=== PATIENT | male | born 1945 | race Caucasian/White ===

== ENCOUNTER → 2018-02-05 08:41 | Outpatient (CLI) | payer MEDICARE, SELFPAY ==
[2018-02-05 09:00] VITALS: PULSE 102; PULSE 85; PULSE 86; PULSE 90; PULSE 93; PULSE 95; PULSE 98; O2SAT 91; O2SAT 93; O2SAT 94; O2SAT 95
--- NOTE | 2018-02-05 11:34 | WT_ITS ---
PSN 6 Minute Walk Test - 6 Minute Walk Test 6 Minute Walk Test: 6 Minute Walk Test PSN:6-Minute Walk Test Start: 02/05/18 09: 11 Freq: Status: Active Protocol: RESP.6MINW Document 02/05/18 09:00 HG (Rec: 02/05/18 09:15 HG [id number]) 6 Minute Walk Test Date Performed 02/05/18 Time Performed 09:00 Height 5 ft 10 in Weight: 283 lb Weight in Pounds 283.[address]: Stewart Bob Assistive device used: None Pre-test Oxygen Delivery Method Room Air Pulse Ox (%) 95 Pulse Rate (60-100 beats/min) 86 Dyspnea Richard Scale (0-10) 4 Exertion Richard Scale (6-20) 14 1st minute Oxygen Delivery Method Room Air Pulse Ox (%) 93 Pulse Rate (60-100 beats/min) 95 2nd minute Oxygen Delivery Method Room Air Pulse Ox (%) 91 Pulse Rate (60-100 beats/min) 102 H 3rd minute Oxygen Delivery Method Room Air Pulse Ox (%) 91 Pulse Rate (60-100 beats/min) 98 Number of Rests Taken 1 Reported Symptoms Increased Work of Breathing 4th minute Oxygen Delivery Method Room Air Pulse Ox (%) 93 Pulse Rate (60-100 beats/min) 95 Number of Rests Taken 1 Reported Symptoms Increased Work of Breathing 5th minute Oxygen Delivery Method Room Air Pulse Ox (%) 95 Pulse Rate (60-100 beats/min) 85 6th minute Oxygen Delivery Method Room Air Pulse Ox (%) 94 Pulse Rate (60-100 beats/min) 93 Post-test Oxygen Delivery Method Room Air Pulse Ox (%) 95 Pulse Rate (60-100 beats/min) 90 Dyspnea Richard Scale (0-10) 5 Exertion Richard Scale (6-20) 16 Full Laps Walked 9 Partial Lap, Number of Tiles Walked 0 Total Distance Walked (ft) 531 - Interpretation Interpretation: The patient ambulated 531 feet over the course of 6 minutes beginning on room air without assistive devices or breaks. Pretesting oxygen saturation was noted to be 95% on room air. With ambulation, the wilbur oxygen saturation was 91%. There is evidence of both impaired walk distance and significant exertional oxygen desaturation. - Recommendations Recommendations: There is no indication for the use of supplemental oxygen at this time. However , close interval follow-up is recommended given the degree of oxygen desaturation noted during this study.
== END ==
PROVIDERS: Family Provider Family Medicine; PCP Family Medicine; Visit Provider Internal Medicine Critical Care Medicine
DX: J43.9 Emphysema, unspecified (principal); J45.909 Unspecified asthma, uncomplicated
CPT/HCPCS: 94618

== ENCOUNTER 2018-02-16 12:21 | Emergency (ER) | payer MEDICARE, SELFPAY ==
[2018-02-16 12:22] VITALS: BP 121/75; PULSE 78; RESP 20; TEMP 36.6; O2SAT 96; BMI 40.4
--- NOTE | 2018-02-16 12:46 | VDLE_ITS ---
Reason For Study: swelling Procedure LEFT Exam performed portable in ED. GSV is normal. The exam was diagnostic. CFV is compressible, spontaneous, phasic, A preliminary report was called and/or faxed competent, and demonstrates normal to Dr. Leiva. augmentation. FV is compressible, spontaneous, phasic, competent and demonstrates normal augmentation. POP V is compressible, spontaneous, phasic, competent and demonstrates normal augmentation. T/P Trunk is compressible. PTV is compressible. LT PerV is compressible. Interpretation Summary There is no evidence of left lower extremity deep vein thrombosis. Left greater saphenous vein appears patent and compressible segmentally. Interpretation delayed because of [facility] issues Ordering Physician: Edis Leiva Referring Physician: Stewart Bob Performed By: Fermin Cortez RVT
--- NOTE | 2018-02-16 13:33 | ED.DCSUM_ITS ---
- ER Visit Summary Date of Service: 02/16/18 Chief Complaint: Left leg swelling History of Present Illness: The patient is a [address] Bob and Dr. Tilley. He reports he is swelling of his left leg that began 2 days ago. He denies any pain, but reports his peripheral neuropathy would prevent him from feeling this. No personal or family history of DVT. No recent travel. No trauma. He denies chest pain. He has chronic shortness of breath that is unchanged. Physical Examination: Vitals: Stable. Afebrile. General: Well-nourished and well-developed. Head: Normocephalic atraumatic. Neck: Supple, no lymphadenopathy. No JVD. Nontender. Cardiovascular: Regular rate and rhythm. No murmurs. Respiratory: No respiratory distress. Clear to auscultation bilaterally. Abdominal: Soft, nontender, nondistended, normal bowel sounds. No guarding, rebound, or peritoneal signs. Back: Nontender. Extremities: Nontender, 1+ pitting edema left lower extremity. 2+ dorsalis pedis pulse bilaterally. Skin: Normal color, no rash. Neurologic: Alert and oriented ?3. Cranial nerves II through XII are intact. Normal strength and sensation. Psych: Normal affect. Test Results: Left lower extremity Doppler was negative. Emergency Department Course and Treatment: Patient is resting comfortably and refused pain medications. Treatment Plan: Patient will be discharged instructions to follow-up with his primary care physician in 3-5 days if not improving. Return to the emergency department for any worsening symptoms. Disposition: To home in improved and stable condition. Impression: 1. Left leg swelling. This note was generated with [employer] dictation software. It may contain incorrect words, spelling, and punctuation that were not noted in review of the chart prior to signing ED Disposition - Plan for ED Patient: Chief Complaint: Lower Extremity Injury Instructions: ED Leg Swelling Unilateral Referrals: Edenilson Tilley MD [Primary Care Provider] - 3-5 Days if not improving
[2018-02-16 13:40] VITALS: BP 129/83; PULSE 84; RESP 18
== END 2018-02-16 13:42 | disposition home or self-care (01) ==
PROVIDERS: Emergency Provider Emergency Medicine; Family Provider Family Medicine; PCP Family Medicine
DX: M79.89 Other specified soft tissue disorders (principal); I10 Essential (primary) hypertension; E78.00 Pure hypercholesterolemia, unspecified; J45.909 Unspecified asthma, uncomplicated; G62.9 Polyneuropathy, unspecified; Z79.82 Long term (current) use of aspirin; Z79.899 Other long term (current) drug therapy
CPT/HCPCS: 93971; 99282

== ENCOUNTER → 2018-02-25 15:51 | Outpatient (CLI) | payer MEDICARE, SELFPAY ==
[2018-02-25 16:52] LABS: ALB/GLOB Ratio 0.9 RATIO (0.9-2.4); AST(SGOT) 27 U/L (15-37); Alanine Aminotransfer ALT/SGPT 42 U/L (16-61); Albumin, Serum 3.7 g/dL (3.2-5.0); Alkaline Phosphatase 86 U/L (45-117); Anion Gap 10 (5-15); BUN 18 mg/dL (7-18); BUN/Creat Ratio 18.9 RATIO (10-20); Chloride 104 mmol/L (98-107); Creatinine, Serum 0.95 mg/dL (0.70-1.30); EST Glomerular Filtration Rate 83 mL/min (>60); Est Glom Filt Rate - Afr Amer 100 mL/min (>60); Glucose 117 mg/dL (74-106); Potassium 4.3 mmol/L (3.5-5.1); Protein, Total 7.7 g/dL (6.4-8.2); Sodium Level 141 mmol/L (136-145); Thyroid Stim Hormone (TSH) 1.45 uIU/mL (0.358-3.74)
== END ==
PROVIDERS: Visit Provider Nurse Practitioner Family
DX: E03.9 Hypothyroidism, unspecified (principal); M79.89 Other specified soft tissue disorders
CPT/HCPCS: 80053; 84443

== ENCOUNTER → 2018-04-21 07:49 | Outpatient (CLI) | payer MEDICARE, SELFPAY ==
--- NOTE | 2018-04-21 16:01 | PFTCOMP ---
COMPLETE PULMONARY FUNCTION TEST INTERPRETATION Brief HPI: Patient is a 72 year old male, currently under the care of myself, who presents to [facility] for complete pulmonary function tests secondary to diagnosis of COPD. Respiratory therapist reports good effort and reproducible results. Interpretation: Forced expiration spirometry shows a moderately-severe large airways obstructive ventilatory defect with an FEV1 of 54% predicted. There is no significant bronchodilator response by ATS criteria. Spirograms are of good quality and plateau slowly, indicating slowly emptying areas of the lungs. The respiratory flow volume loop shows decreased expiratory flow rates at all lung volumes consistent with airway obstruction. Lung volumes by body plethysmography show a mildly decreased total lung capacity at 5.45 L, 84% predicted. FRC and RV are elevated out of proportion. Lung volume measurements are consistent with air-trapping, but this does not reach clinical significance by strict ATS criteria. Diffusion capacity by carbon monoxide is normal at 82% predicted. The airway resistance is elevated. No previous pulmonary function tests were available for review. Impression: Moderately severe mixed ventilatory defect with preserved diffusion capacity consistent with the diagnosis of chronic bronchitis. Secondary restrictive process, such as body habitus, cannot be excluded.
== END ==
PROVIDERS: Family Provider Family Medicine; PCP Family Medicine; Visit Provider Internal Medicine Critical Care Medicine
DX: J43.9 Emphysema, unspecified (principal)
CPT/HCPCS: 94060; 94726; 94729

== ENCOUNTER → 2018-05-23 07:46 | Outpatient (CLI) | payer MEDICARE, SELFPAY | PROVIDERS: Family Provider Family Medicine; PCP Family Medicine; Visit Provider Internal Medicine Critical Care Medicine | DX: J47.9 Bronchiectasis, uncomplicated (principal) | CPT/HCPCS: 71250 ==

== ENCOUNTER → 2018-08-06 08:43 | Outpatient (CLI) | payer MEDICARE, SELFPAY ==
[2018-08-04 09:57] VITALS: BMI 41.1
[2018-08-06 09:16] VITALS: PULSE 76; PULSE 79; PULSE 87; PULSE 92; PULSE 94; PULSE 95; PULSE 97; PULSE 98; O2SAT 91; O2SAT 92; O2SAT 93; O2SAT 95
--- NOTE | 2018-08-07 08:38 | PCM.PSN.6M ---
PSN 6 Minute Walk Test - 6 Minute Walk Test 6 Minute Walk Test: 6 Minute Walk Test PSN:6-Minute Walk Test Start: 08/06/18 09:15 Freq: Status: Active Protocol: RESP.6MINW Document 08/06/18 09:16 FRANCESCO (Rec: 08/06/18 09:18 FRANCESCO [id number]) 6 Minute Walk Test Date Performed 08/06/18 Time Performed 09:00 Height 5 ft 10 in Weight: 288 lb Weight in Pounds 288.[address]: Stewart Bob Assistive device used: None Pre-test Oxygen Delivery Method Room Air Pulse Ox (%) 93 Pulse Rate (60-100 beats/min) 76 Dyspnea Richard Scale (0-10) 0.5 Exertion Richard Scale (6-20) 6 1st minute Oxygen Delivery Method Room Air Pulse Ox (%) 93 Pulse Rate (60-100 beats/min) 87 2nd minute Oxygen Delivery Method Room Air Pulse Ox (%) 91 Pulse Rate (60-100 beats/min) 95 3rd minute Oxygen Delivery Method Room Air Pulse Ox (%) 93 Pulse Rate (60-100 beats/min) 97 Number of Rests Taken 1 4th minute Oxygen Delivery Method Room Air Pulse Ox (%) 93 Pulse Rate (60-100 beats/min) 92 5th minute Oxygen Delivery Method Room Air Pulse Ox (%) 92 Pulse Rate (60-100 beats/min) 94 6th minute Oxygen Delivery Method Room Air Pulse Ox (%) 93 Pulse Rate (60-100 beats/min) 98 Dyspnea Richard Scale (0-10) 4 Exertion Richard Scale (6-20) 13 Post-test Oxygen Delivery Method Room Air Pulse Ox (%) 95 Pulse Rate (60-100 beats/min) 79 Full Laps Walked 12 Partial Lap, Number of Tiles Walked 60 Total Distance Walked (ft) 768 - Interpretation Interpretation: The patient ambulated 768 feet over the course of 6 minutes beginning on room air without assistive devices or breaks. Pretesting oxygen saturation was noted to be 93% on room air. With ambulation, the wilbur oxygen saturation was 91%. Although there was evidence of impaired walk distance, there was no significant exertional oxygen desaturation. - Recommendations Recommendations: There is no indication for the use of supplemental oxygen at this time.
== END ==
PROVIDERS: Family Provider Family Medicine; PCP Family Medicine; Referring Provider Internal Medicine Critical Care Medicine; Visit Provider Internal Medicine Critical Care Medicine
DX: E66.9 Obesity, unspecified (principal); Z98.890 Other specified postprocedural states
CPT/HCPCS: 94618

== ENCOUNTER → 2018-08-29 13:01 | Outpatient (CLI) | payer MEDICARE, SELFPAY ==
[2018-08-04 09:57] VITALS: BMI 41.1
--- NOTE | 2018-08-29 13:03 | ECHOCS_ITS ---
Reason For Study: Dyspnea/SOB Procedure This was a 2D Doppler, Color Flow transthoracic echocardiogram. The study was technically difficult. Contrast injection was performed. Exam performed in department. Left Ventricle Normal LV size. Left ventricular systolic function is normal. The estimated ejection fraction is 55 %. No evidence for diastolic dysfunction. No regional wall motion abnormalities noted. Right Ventricle Normal RV size. Normal systolic function. Atria Normal left atrium. Normal right atrium. No doppler evidence for ASD. Mitral Valve There is no mitral annular calcification. Normal mitral valve. Trivial mitral valve insufficiency. Tricuspid Valve Normal tricuspid valve. Trivial tricuspid valve insufficiency. Unable to estimate RV systolic pressure/pulmonary artery pressure due to technically difficult study. Aortic Valve Trisinus/trileaflet aortic valve. Mild focal aortic valve calcification. Trivial aortic valve insufficiency. Pulmonic Valve The pulmonic valve is not well visualized. Great Vessels Normal sized aortic root. Pericardium/Pleural No pericardial effusion. Medication 22 gauge I.V. with prn adaptor inserted into right arm. Diluted definity 3ml given slow IV push to enhance endocardial definition. MMode/2D Measurements & Calculations LVIDd: 3.6 cm IVSd: 1.3 cm Ao root diam: 3.8 cm LVIDs: 2.3 cm LVPWd: 0.85 cm FS: 34.8 % LAV(MOD-bp): 50.9 ml LVAd ap4: 31.9 cm2 SV(MOD-sp4): 65.8 ml LAV(MOD-bp) Indexed: 21.1 ml/m2 EDV(MOD-sp4): 100.7 ml LAV(MOD-sp2): 56.4 ml EDV(sp4-el): 102.5 ml LAV(MOD-sp4): 44.8 ml LVAs ap4: 17.3 cm2 ESV(MOD-sp4): 34.9 ml ESV(sp4-el): 36.8 ml EF(MOD-sp4): 65.3 % EF(sp4-el): 64.1 % SV(sp4-el): 65.7 ml LA A4 area: 16.5 cm2 RA A4 area: 12.9 cm2 Time Measurements MV dec time: 0.21 sec Doppler Measurements & Calculations MV E max graham: 56.7 cm/sec Lat Peak E' Graham: 8.9 cm/sec Med Peak E' Graham: 8.0 cm/sec MV A max graham: 88.9 cm/sec E/E' lat: 6.4 E/E' med: 7.1 MV E/A: 0.64 MV V2 max: 110.7 cm/sec MV P1/2t max graham: 76.1 cm/sec Ao V2 max: 131.9 cm/sec MV max P.9 mmHg MV P1/2t: 105.4 msec Ao max P.0 mmHg MV V2 mean: 57.2 cm/sec MV mean P.5 mmHg MV dec slope: 211.4 cm/sec2 MV V2 VTI: 25.4 cm MVA(P1/2t): 2.1 cm2 LV V1 max: 96.3 cm/sec PA V2 max: 86.7 cm/sec LV V1 max P.7 mmHg Interpretation Summary The study was technically difficult. Contrast injection was performed. Left ventricular systolic function is normal. The estimated ejection fraction is 55 %. Trivial mitral valve insufficiency. Trivial tricuspid valve insufficiency. Mild focal aortic valve calcification. Trivial aortic valve insufficiency. Unable to estimate RV systolic pressure/pulmonary artery pressure due to technically difficult study. No evidence for diastolic dysfunction. Ordering Physician: Stewart Bob Referring Physician: Stewart Bob Performed By: Clay Morton RCS
--- OUTSIDE RECORDS SUMMARY | 2018-10-15 08:16 | XMS RPT_ITS ---
:1945 Author Organization OHIP Support Name Relationship Address Phone KALI CARRERA Unavailable CONTACT ONLY INCASE OF + [place] [address] R Unavailable Unavailable Unavailable DEANDRE, KALI Unavailable CONTACT ONLY INCASE OF + [place] [address] R Unavailable Unavailable Unavailable DEANDRE, KALI Unavailable CONTACT ONLY INC[facility] OF + [place] R Unavailable Unavailable Unavailable DEANDRE, KALI Unavailable CONTACT ONLY INC[facility] OF + [place] R Unavailable Unavailable Unavailable DEANDRE, KALI Unavailable CONTACT ONLY INC[facility] OF + [place] R Unavailable Unavailable Unavailable DEANDRE, KALI Unavailable CONTACT ONLY INC[facility] OF + [place] R Unavailable Unavailable Unavailable DEANDRE, KALI Unavailable [address] + [place] [address] R Unavailable Unavailable Unavailable DEANDRE, KALI Unavailable [address] + [place] [address] R Unavailable Unavailable Unavailable DEANDRE, PRINCE Unavailable [address] + [place] [address] R Unavailable Unavailable Unavailable DEANDRE, PIRNCE Unavailable [address] + [place] [address] R Unavailable Unavailable Unavailable DEANDRE, KALI Unavailable [address] + [place] [address] R Unavailable Unavailable Unavailable DEANDRE, PRINCE Unavailable [address] + [place] [address] R Unavailable Unavailable Unavailable DEANDRE, PRINCE Unavailable Unavailable + R Unavailable Unavailable Unavailable DEANDRE, PRINCE Unavailable [address] + ., . . R Unavailable Unavailable Unavailable DEANDRE, PRINCE Unavailable Unavailable + R Unavailable Unavailable Unavailable DEANDRE, PRINCE Unavailable [address] + [place] [address] R Unavailable Unavailable Unavailable DEANDRE, PRINCE Unavailable [address] + [place] [address] R Unavailable Unavailable Unavailable DEANDRE, PRINCE Unavailable [address] + [facility], [place] / R Unavailable Unavailable Unavailable DEANDRE, PRINCE Unavailable [address] + [facility], [place] / R Unavailable Unavailable Unavailable DEANDRE, PRINCE Unavailable [address] + [facility], [place] / R Unavailable Unavailable Unavailable Care Team Providers Name Role Phone SHARMILA THAKUR (IGNITER CAPPER) Attending Unavailable SHARMILA THAKUR (URSZULA) Referring Unavailable MORGAN CROCKETT Attending Unavailable MORGAN CROCKETT Referring Unavailable Silas Thurman Attending Unavailable Stewart Bob Referring Unavailable Morgan Crockett Primary Care Unavailable Stewart Bob Consulting Unavailable Ubaldo Hassan Attending Unavailable Edenilson Tilley Referring Unavailable Ashley Livingston Attending Unavailable Ubaldo Hassan Attending Unavailable DOCTOR, OUT OF TOWN Referring Unavailable SIMI RANDLE Primary Care Unavailable Stewart Bob Attending Unavailable DOCTOR, OUT OF TOWN Referring Unavailable Ubaldo Hassan Attending Unavailable Ubaldo Hassan Referring Unavailable Morgan Crockett Primary Care Unavailable Stewart Bob Attending Unavailable Stewart Bob Referring Unavailable Edenilson Tilley Primary Care Unavailable Codey Cancino D.O. Attending Unavailable Stewart Bob Referring Unavailable SharmilaEdenilson Primary Care Unavailable Edis Leiva Attending Unavailable Sharmila Thakur Attending Unavailable Sharmila, Edenilson Primary Care Unavailable Sharmila Thakur Referring Unavailable Fabiano Gaspar Attending Unavailable Stewart Bob Attending Unavailable Stewart Bob Referring Unavailable SharmilaEdenilson Primary Care Unavailable Stewart Bob Attending Unavailable DOCTOR, OUT OF TOWN Referring Unavailable Sharmila, Edenilson Primary Care Unavailable Stewart Bob Attending Unavailable Paulino, Stewart Referring Unavailable Ubaldo Hassan Attending Unavailable DOCTOR, OUT OF TOWN Referring Unavailable Edenilson Tilley Primary Care Unavailable Paulino, Stewart Attending Unavailable Paulino, Stewart Referring Unavailable Indigo, Morgan Primary Care Unavailable Paulino, Stewart Attending Unavailable Edenilson Tilley Referring Unavailable Paulino, Stewart Attending Unavailable Paulino, Stewart Referring Unavailable Elderbrock, Morgan Primary Care Unavailable Paulino, Stewart Attending Unavailable Paulino, Stewart Referring Unavailable [facility], Morgan Primary Care Unavailable Codey Cancino D.O. Attending Unavailable Paulino, Stewart Referring Unavailable PROBLEMS PROBLEMS DATE TYPE CONDITION / CODE ATTENDING STATUS SOURCE 09/26/2018 Unknown R03.0 - Elevated Ubaldo Hassan Active [facility] blood-pressure Community reading, without Hospital diagnosis of Repository hypertension / R03.0(ICD-10) 09/26/2018 Unknown I10 - Essential Ubaldo Hassan Active [facility] (primary) Community hypertension / Hospital I10(ICD-10) Repository 09/26/2018 Unknown E78.5 - Ubaldo Hassan Active [facility] Hyperlipidemia, Community unspecified / Hospital E78.5(ICD-10) Repository 08/29/2018 Unknown I35.1 - Nonrheumatic MoodispaSilas blake Active [facility] aortic (valve) Community insufficiency / Hospital I35.1(ICD-10) Repository 08/29/2018 Unknown I36.1 - Nonrheumatic Moodispaw, Silas Active [facility] tricuspid (valve) Community insufficiency / Hospital I36.1(ICD-10) Repository 08/21/2018 Active Essential (primary) NA Active [facility] hypertension / Clinic Main I10(ICD-10) [facility] Repository 08/21/2018 Active Other fatigue / NA Active [facility] R53.83(ICD-10) Clinic Main [facility] Repository 08/06/2018 Unknown E66.9 - Obesity, Paulino Stewart Active [facility] unspecified / Community E66.9(ICD-10) Hospital Repository 08/06/2018 Unknown Z98.890 - Other Paulino, Stewart Active [facility] specified Community postprocedural Hospital states / Repository Z98.890(ICD-10) 08/04/2018 Unknown G47.33 - Obstructive Paulino, Stewart Active [facility] sleep apnea (adult) Community (pediatric) / Hospital G47.33(ICD-10) Repository 08/04/2018 Unknown I50.30 - Unspecified Paulino, Stewart Active [facility] diastolic Community (congestive) heart Hospital failure / Repository I50.30(ICD-10) 08/04/2018 Unknown J45.40 - Moderate Paulino, Stewart Active [facility] persistent asthma, Community uncomplicated / Hospital J45.40(ICD-10) Repository 05/23/2018 Unknown J47.9 - Paulino, Stewart Active [facility] Bronchiectasis, Community uncomplicated / Hospital J47.9(ICD-10) Repository 04/29/2018 Unknown J45.909 - Paulino, Stewart Active [facility] Unspecified asthma, Community uncomplicated / Hospital J45.909(ICD-10) Repository 06/06/2018 Unknown J43.9 - Emphysema, Paulino, Stewart Active [facility] unspecified / Community J43.9(ICD-10) Hospital Repository 05/08/2018 Unknown J44.9 - Chronic Paulino, Stewart Active [facility] obstructive Community pulmonary disease, Hospital unspecified / Repository J44.9(ICD-10) 02/26/2018 Unknown E03.9 - Sharmila Thakur Active [facility] Hypothyroidism, Community unspecified / Hospital E03.9(ICD-10) Repository 02/25/2018 Active Hypothyroidism, NA Active [facility] unspecified / Clinic Main E03.9(ICD-10) [facility] Repository 02/25/2018 Active Other specified soft NA Active [facility] tissue disorders / Clinic Main M79.89(ICD-10) [facility] Repository 04/10/2018 Unknown M79.89 - Other Fabiano Gaspar Active [facility] specified soft Community tissue disorders / Hospital M79.89(ICD-10) Repository 11/04/2017 Unknown F17.201 - Nicotine Ubaldo Hassan Active [facility] dependence, Community unspecified, in Hospital remission / Repository F17.201(ICD-10) PROCEDURES PROCEDURES No Procedure Records FoundRESULTS RESULTS CARDIOLOGY VISIT Observed: 09/26/2018 Status: F Source: [facility] REPORT 2:34 PM [facility] RE[facility]IT[facility] [address] [place] [address]. [address] [place] [address] OFFICE VISIT Date of Service: 09/26/18 MR#: [id number] Acct: [id number] Name: APARNA CARRERA Rep #: [id number] : 1945 Provider: Ubaldo Hassan MD Age/Sex: 73/M [place] [facility] [place]: Signed HPI HPI Chief Complaint: Routine f/u Details: Details: Referring physician: Dr. Edenilson Tilley Mr. Carrera is a very pleasant 73-year-old moderately obese nondiabetic gentleman, with a heavy previous smoking history smoking 3-5 packs per day for 28 years quit about 30 years ago. He has been diagnosed with COPD, obstructive sleep apnea, and apparently has an elevated left jorge-diaphragm as well. He had never been told he had any coronary artery disease. He does have risk factors including his age, hypercholesterolemia, previous smoking, hypertension. The patient was originally referred to our office for increasing dyspnea on exertion, increasing fatigue, decreased energy level, and tiredness. Unfortunately the patient is unable to use his CPAP due to a chronic skin staph infection which causes inflammation of his skin around his mouth. Patient does use his inhalers, and was recently placed on beta maximino therapy about 2 years ago. Ever since beta maximino initiation he has had increasing use of his inhalers, decreased energy, and shortness of breath. Recently his Hyzaar was switched to Cozaar for unknown reasons which may have been an oversight in prescription ordering. His last echocardiogram was in 2011 which showed an EF of 65%, diastolic dysfunction, aortic sclerosis with mild AI, and RVSP of 32 mmHg. Patient denies any exertional angina, chest pain, jaw pain, or left arm pain. He he states he can walk 2 blocks or 2 flights of stairs but would be profoundly dyspneic at the end of that. Patient underwent a dobutamine echocardiogram on 07/2016, which appeared to be negative for inducible ischemia although we have poor echo windows requiring Definity agent. patient underwent left her catheterization on 09/28/16 which showed angiographically normal coronaries LVEF is 75%, normal right-sided pressures, no evidence of mitral stenosis. patient reports he sees a inventory control assistant in the [place] area, and underwent full pulmonary function test in January 2016. He does have sleep apnea but is unable to use his CPAP. He denies any narcoleptic tendencies but does have daytime somnolence. Patient wishes to relocate his pulmonary physician to [facility] given the distance of travel And to consolidate his care. We increased his hydrochlorothiazide to 25 mg by mouth daily several visits ago given his lower extremity edema, and due to it appears to be a skin allergy was unable to tolerate ELANA hose or Baldemar bandages. His shortness of breath has remained about the same, and his lower extremity edema is about trace today. Patient's main issue at our previous visit was dyspnea on exertion and shortness of breath which appears to be worsening since our last visit. He is awaiting to see his inventory control assistant in [place] on November 19 of this year. His most recent 6 minute walk test on 11/02/16 showed a desaturated to around 93% and did not appear to require O2 requirement at this time. FORMAN is his main issue is dyspnea on exertion. PFTs dated 04/21/18 moderately severe mixed ventilatory defect with preserved diffusion capacity consistent with the diagnosis of chronic bronchitis. Secondary restrictive process, such as body habitus, cannot be excluded. Since his last visit his main issue is been dyspnea on exertion, and he has seen Dr. Bob. Apparently, he has had a 6-minute walk test, and does not qualify for home oxygen. He is tried oxygen at home at night, and it actually makes him feel more tired in the morning. He has noted increases in blood pressure when he gets agitated and severe shortness of breath with walking to his mailbox apparently he had stopped all his inhaler therapy, and a repeat PFT did not show much difference than his previous PFT. Nonetheless he is on Advair, and albuterol as a bail out. He underwent a CT scan on 05/23/18 which demonstrated elevated left hemidiaphragm, no changes from previous. Echocardiogram dated 08/29/18 showed EF of 55%, no diastolic dysfunction, normal RVSP. In our office today his blood pressure is 132/70, pulse is 88 and regular. His Physical exam demonstrates severe obesity, very distant breath sounds bilaterally, regular rate and rhythm, normal S1/S2. No murmurs are detected. He has Trace to 1+ bilateral lower extremity edema. EKG previously demonstrates normal sinus rhythm with no evidence of previous myocardial infarction. Lipids as of 07/05/16 show an HDL of 37 and an LDL of 91. 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 Is patient in pain?: No Allergies Penicillins Allergy (Severe, Verified 09/23/18 18:14) Anaphylaxis perfume Allergy (Intermediate, Verified 09/23/18 18:14) Other-triggers asthma attack perflutren [From Definity] Allergy (Verified 09/23/18 18:14) Unknown vancomycin Adverse Reaction (Intermediate, Verified 09/23/18 18:14) Other-htn atorvastatin [From Lipitor] Adverse Reaction (Mild, Verified 09/23/18 18:14) Other-myalgias dobutamine Adverse Reaction (Mild, Verified 09/23/18 18:14) Other-muscle spasm fluticasone [From Flonase] Adverse Reaction (Mild, Verified 09/23/18 18:14) Other-nosebleed rosuvastatin [From Crestor] Adverse Reaction (Mild, Verified 09/23/18 18:14) Other-myalgias simvastatin [From Zocor] Adverse Reaction (Mild, Verified 09/23/18 18:14) Other-myalgias eggs Adverse Reaction (Mild, Uncoded 08/04/18 08:25) Other-water blisters Medications Cyanocobalamin (Vitamin B-12) [B-12] 1,000 mcg PO DAILY 09/27/16 [History Confirmed 09/26/18] Garlic 400 mg PO DAILY 09/27/16 [History Confirmed 09/26/18] Krill Oil/Davey-3/Dha/Epa [Davey-3 Krill Oil Softgel] 1 ea PO DAILY 09/27/16 [History Confirmed 09/26/18] cholecalciferol (vitamin D3) 2,000 unit capsule 4,000 unit PO DAILY cap 01/22/18 [History Confirmed 09/26/18] ibuprofen 200 mg capsule 400 mg PO TID-QID PRN cap 01/22/18 [History Confirmed 09/26/18] magnesium oxide 400 mg capsule 400 mg PO QDAY cap 01/22/18 [History Confirmed 09/26/18] wrgoxckk-xns-ixnvm acid 0.4 mg-lycopene 300 mcg-lutein 250 mcg tablet 1 tab PO QDAY 01/22/18 [History Confirmed 09/26/18] polyethylene glycol 3350 17 gram/dose oral powder 17 g PO QDAY g 01/22/18 [History Confirmed 09/26/18] turmeric root extract 500 mg capsule 500 mg PO QDAY 01/22/18 [History Confirmed 09/26/18] albuterol sulfate HFA 90 mcg/actuation aerosol inhaler 2 puff INHALATION Q4H PRN #18 g 04/30/18 [Rx Confirmed 09/26/18] furosemide 40 mg tablet 40 mg PO QDAY #90 tab 05/30/18 [Rx Confirmed 09/26/18] fluticasone 250 mcg-salmeterol 50 mcg/dose blistr powdr for inhalation 1 inh INHALATION BID 08/04/18 [History Confirmed 09/26/18] aspirin 81 mg tablet,delayed release 81 mg PO DAILY #90 tab 09/10/18 [Rx Confirmed 09/26/18] levothyroxine 150 mcg tablet 150 mcg PO DAILY tab 09/26/18 [History Confirmed 09/26/18] losartan 50 mg tablet 50 mg PO .COMPLEX 09/26/18 [History Confirmed 09/26/18] losartan 50 mg-hydrochlorothiazide 12.5 mg tablet 1 tab PO .COMPLEX tab 09/26/18 [History] PFS Medical History Nonrheumatic aortic (valve) insufficiency (Chronic) Nonrheumatic tricuspid (valve) insufficiency (Chronic) Pneumonia (Acute) Emphysema lung (Chronic) Bronchitis (Acute) Bronchiectasis (Suspected) Asthma (Chronic) Obesity (BMI 30-39.9) (Chronic) Nicotine dependence in remission (Chronic) Neuropathy (Chronic) GERD (gastroesophageal reflux disease) (Chronic) Hypothyroidism (Chronic) Obstructive sleep apnea (Chronic) Hyperlipidemia (Chronic) Hypertension (Chronic) Dyspnea (Acute) Groin mass (Acute) Asbestos exposure (Chronic) Cyst of right kidney (Chronic) Lung nodule (Chronic) Thyroid disease (Chronic) Torn cartilage (Resolved) chipped bones (Resolved) Surgical History History of repair of rotator cuff (Resolved) hernia repair (Resolved) History of right and left heart catheterization (Chronic 09/28/16) S/P trigger finger release (Resolved) finger surgery (Resolved) pin placement (Resolved) Family History Father CAD (coronary artery disease) Social History Smoking Status: Former smoker pack-years: 168 how long ago did patient quit smokin, 4p/d second hand exposure: Yes alcohol intake: current alcohol intake frequency: holidays/special occasions only ROS Const Const: Positive for other (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 Was told he has CHF per echo); negative for fatigue, weakness, body ache, fever(s), headache(s), chills, frequent falls, night sweats, daytime sleepiness, difficulty sleeping, excessive sweating, weight gain, weight loss, increased appetite, poor appetite or anorexia Eyes Eyes: Negative for blind spots, loss of peripheral vision, transient loss of vision, blurry vision, change in vision, double vision, floaters, tunnel vision or other ENT ENT: Negative for headache(s), dizziness, hearing loss, tinnitus, Nosebleed/epistaxis, balance problems, post nasal drip, lip swelling, tongue swelling, bleeding gums, hoarseness, neck pain, dry mouth or other Cardio Chest Pain: No Edema: Bilateral (pitting to mid amaya) Muscle aches with walking: None Resp Respiratory: Positive for SOB with activity (asthma, emphysema, asbestos exposure, sleep apnea) and other (Sees Dr. Bob also); negative for SOB at rest, SOB orthopnea\SOB lying down, Cough, Coughing up blood/hemoptysis, chest congestion, pain on inspiration, snoring, stridor, wheezing, crackles or paroxysmal nocturnal dyspnea GI GI: Negative nausea, vomiting, heartburn, constipation, belching, bloating, cramping, vomiting blood/hematemesis, bright, red blood in stools, black,tarry stools, loose stools, Difficulty Swallowing or other : Negative for hematuria, frequent nighttime urination/ nocturia, erectile dysfunction or abnormal vaginal bleeding Musc Musc: Negative for balance problems, muscle aches/ myalgia, muscle weakness or joint pain Skin Skin: Negative redness, non-healing lesions, rash, unusual bruising, skin ulcer, wounds, jaundice or other Neuro Neuro: Negative for weakness, headache(s), frequent falls, blurry vision, double vision, dizziness, lightheadedness, near syncope, syncope, orthostatic symptoms, confusion, memory loss, restless legs, vertigo, seizures, lack of coordination or other Fito Hematologic/Lymphatic: Negative for easy bleeding, easy bruising, enlarged lymph nodes or other Endo Endo: Negative for fatigue, excessive sweating, cold intolerance, heat intolerance, flushing, increased thirst/drinking, increased hunger, hair loss, hair growth or other Psych Psych: Negative for anxiety, depression, thoughts of harming anyone, thoughts of harming yourself, visual hallucinations, panic attacks or audible hallucinations Allergy Allergy/Immunology: Negative for lip swelling, Negative for tongue swelling, Negative for rash, Negative for throat swelling, Negative for hives Cardiology Exam Const Appearance: cooperative, healthy appearing and no acute distress Nutritional Appearance: well nourished Orientation: alert, oriented x3 and oriented to person Head Head: normal to inspection, atraumatic and normocephalic Nose: external nose normal Face and Sinus: face symmetric Mouth: oral mucosae normal Eyes General: appearance normal, both eyes and all related structures Eyelids: eyelids normal Conjunctivae: conjunctivae normal Pupils: PERRL and normal by confrontation EOM: EOM intact bilaterally Neck Neck: normal visual inspection and full ROM Carotids: normal carotid upstroke Chest Chest inspection: normal inspection of the chest Auscultation: Bilateral: Clear to Auscultation Cardio Palpation: normal PMI Rate: regular rate Rhythm: regular rhythm Heart sounds: S1 normal and S2 normal GI GI: normal to inspection, no hepatosplenomegaly and bowel sounds present Neuro General: alert, oriented x3, awake, CN's II-XI intact bilaterally and moves all extremities Skin Skin: no rashes or lesions noted Extremities Pulses: Normal: Right Femoral Pulse, Left Femoral Pulse, Right Dorsalis Pedis Pulse, Left Dorsalis Pedis Pulse, Right Posterior Tibial Pulse, Left Posterior Tibial Pulse, Right Radial Pulse, Left Radial Pulse Lower Extremity Edema: None: Bilateral Psych Psychological: normal affect Assessment AND Plan 1. Hypertension I10 Plan 1. Hypertension: The patient's blood pressure is markedly improved since her last visit. His past the patient may have exercise-induced hypertension which is contributing to diastolic dysfunction and dyspnea on exertion. I recommended that he undergo a amatory blood pressure monitoring for at least a week or 2 to determine if he has exercise-induced hypertension which may require additional antihypertensive therapy. In the meantime he will continue baby aspirin, Lasix, losartan/hydrochlorothiazide as well as losartan. Should the patient have elevated blood pressures, he may benefit from increasing his losartan or increasing his Lasix therapy, or starting Imdur 30 mg p.o. daily to assist with pulmonary vasodilatation and high. Is also possible the patient may have diaphragmatic paresis or even paralysis, may require diaphragmatic stimulation study to help explain why he is so profoundly short of breath. My suspicion is that he has significant bronchiectasis and COPD which is the major component of his shortness of breath. 2. Hyperlipidemia: His LDL and HDL cholesterol are at goal. Continue present management. 3. Return to office in 6 months. This note was generated using a voice recognition system and there may be incorrect words, spelling or punctuation that were not noted when reviewing the office note prior to saving. 2. Hyperlipidemia E78.5 Plan Detail Other Orders Orders: Other Medications New: losartan 50 mg PO daily: takes the Losartan HCTZ once a day and the plain Losartan once a day; Changed: Discontinued: Follow Up +6M (Mo) Coding Level of Care Code Off vis,est,level 3 Diagnoses Hypertension I10 Hyperlipidemia E78.5 Coding Level of Care Code Off vis,est,level 3 Diagnoses Hypertension I10 Hyperlipidemia E78.5 Supplemental Info Supplemental Information Diagnostics Echocardiogram 08/29/18 Cardiac Catheterization 09/28/16 Chest X-Ray 09/20/16 Venous Doppler Study 02/16/18 Pulmonary Pulmonary Function Test 04/21/18 Pulmonary Exercise Test 08/07/18 09/26/18 1434 <Electronically signed by Ubaldo Hassan MD> Date Ubaldo Hassan MD Cosigner Signature: Date (if applicable) CC: Morgan Crockett MD ECHO, COMPLETE W/ Observed: 08/29/2018 Status: F Source: [facility] CONTRAST 5:25 PM [facility] [place] Cardiovascular Services [address] [place] [address] Echo Complete W/ Contrast 08/29/18 1303 MR#: [id number] Acct: [id number] Name: APARNA CARRERA Rep #: [id number] : 1945 72 From: Silas Thurman MD Attending Dr: Stewart Bob MD Status: REG CLI Ordering Dr: Stewart Bob MD Date: 08/29/18 Location: [facility] Sex: M C Admitted: Reason For Study: Dyspnea/SOB Procedure This was a 2D Doppler, Color Flow transthoracic echocardiogram. The study was technically difficult. Contrast injection was performed. Exam performed in department. Left Ventricle Normal LV size. Left ventricular systolic function is normal. The estimated ejection fraction is 55 %. No evidence for diastolic dysfunction. No regional wall motion abnormalities noted. Right Ventricle Normal RV size. Normal systolic function. Atria Normal left atrium. Normal right atrium. No doppler evidence for ASD. Mitral Valve There is no mitral annular calcification. Normal mitral valve. Trivial mitral valve insufficiency. Tricuspid Valve Normal tricuspid valve. Trivial tricuspid valve insufficiency. Unable to estimate RV systolic pressure/pulmonary artery pressure due to technically difficult study. Aortic Valve Trisinus/trileaflet aortic valve. Mild focal aortic valve calcification. Trivial aortic valve insufficiency. Pulmonic Valve The pulmonic valve is not well visualized. Great Vessels Normal sized aortic root. Pericardium/Pleural No pericardial effusion. Medication 22 gauge I.V. with prn adaptor inserted into right arm. Diluted definity 3ml given slow IV push to enhance endocardial definition. MMode/2D Measurements AND Calculations LVIDd: 3.6 cm IVSd: 1.3 cm Ao root diam: 3.8 cm LVIDs: 2.3 cm LVPWd: 0.85 cm FS: 34.8 % LAV(MOD-bp): 50.9 ml LVAd ap4: 31.9 cm2 SV(MOD-sp4): 65.8 ml LAV(MOD-bp) Indexed: 21.1 ml/m2 EDV(MOD-sp4): 100.7 ml LAV(MOD-sp2): 56.4 ml EDV(sp4-el): 102.5 ml LAV(MOD-sp4): 44.8 ml LVAs ap4: 17.3 cm2 ESV(MOD-sp4): 34.9 ml ESV(sp4-el): 36.8 ml EF(MOD-sp4): 65.3 % EF(sp4-el): 64.1 % SV(sp4-el): 65.7 ml LA A4 area: 16.5 cm2 RA A4 area: 12.9 cm2 Time Measurements MV dec time: 0.21 sec Doppler Measurements AND Calculations MV E max graham: 56.7 cm/sec Lat Peak E' Graham: 8.9 cm/sec Med Peak E' Graham: 8.0 cm/sec MV A max graham: 88.9 cm/sec E/E' lat: 6.4 E/E' med: 7.1 MV E/A: 0.64 MV V2 max: 110.7 cm/sec MV P1/2t max graham: 76.1 cm/sec Ao V2 max: 131.9 cm/sec MV max P.9 mmHg MV P1/2t: 105.4 msec Ao max P.0 mmHg MV V2 mean: 57.2 cm/sec MV mean P.5 mmHg MV dec slope: 211.4 cm/sec2 MV V2 VTI: 25.4 cm MVA(P1/2t): 2.1 cm2 LV V1 max: 96.3 cm/sec PA V2 max: 86.7 cm/sec LV V1 max P.7 mmHg Interpretation Summary The study was technically difficult. Contrast injection was performed. Left ventricular systolic function is normal. The estimated ejection fraction is 55 %. Trivial mitral valve insufficiency. Trivial tricuspid valve insufficiency. Mild focal aortic valve calcification. Trivial aortic valve insufficiency. Unable to estimate RV systolic pressure/pulmonary artery pressure due to technically difficult study. No evidence for diastolic dysfunction. Ordering Physician: Stewart Bob Referring Physician: Stewart Bob Performed By: Clay Morton RCS 08/29/18 1725 Date Silas Thurman MD CC: Stewart Bob MD; Morgan Crockett MD Date Dictated: 08/29/18 1303 Date Transcribed: 08/29/181724 Clinical Training Specialist: Signed COMP METABOLIC PANEL Collected: 08/21/2018 Status: F Source: [facility] 12:15 PM [facility] REPOSITORY TYPE CODE TESTS RESULT OUT OF REFERENCE UNITS RANGE LAB TP 6.3-8.0 g/dL Protein, Total 7.5 LAB ALB 3.9-4.9 g/dL Albumin 4.5 LAB CA 8.5-10.2 mg/dL Calcium, Total 9.7 LAB TBIL 0.2-1.3 mg/dL Bilirubin, Total 0.4 LAB ALKP 38-113 U/L Alkaline Phosphatase 72 LAB AST 14-40 U/L AST 36 LAB GLU 74-99 mg/dL Glucose High 103 Result Comment: The [place] Diabetes Association (ADA) provides guidance for cutoff values for fasting glucose and random glucose. The ADA defines fasting as no caloric intake for at least 8 hours. Fas ting plasma glucose results between 100 to 125 mg/dL indicate increased risk for diabetes (prediabetes). Fasting plasma glucose results greater than or equal to 126 mg/dL meet the criteria for diagnosis of diabetes. In the absence of unequivocal hyperglycemia, results should be confirmed by repeat testing. In a patient with classic symptoms of hyperglycemia or hyperglycemic crisis, random plasma glucose results greater than or equal to 200 mg/dL meet the criteria for diagnosis of diabetes. Reference: Standards of Medical Care in Diabetes 2016, [place] [employer] Association. Diabetes Care. 2016.39(Suppl 1). LAB BUN 9-24 mg/dL BUN 16 LAB CRET 0.73-1.22 mg/dL Creatinine 0.91 LAB NA 136-144 mmol/L Sodium 140 LAB K 3.7-5.1 mmol/L Potassium 4.9 LAB CL 97-105 mmol/L Chloride 102 LAB CO2 22-30 mmol/L CO2 24 LAB AGAP 9-18 mmol/L Anion Gap 14 LAB ALT 10-54 U/L ALT 40 LAB GFRAA eGFR- Amer. >60 LAB GFRNAA . eGFR-All Other Races >60 Result Comment: eGFR (Estimated GFR) Units of measure: mL/min/1.73 meters squared eGFR is derived from the reexpressed MDRD Study equation using the following parameters: serum creatinine, age, gender and race. The creatinine assay has been calibrated to be traceable to IDMS. An eGFR <60 mL/min/1.73m2 for >3 months is consistent with chronic kidney disease. Refer to KDOQI guidelines for clinical interpretation. In patients with unstable renal function, e.g. those with acute kidney injury, the eGFR may not accurately reflect actual GFR. Performed By: #### CMP, LIPB, TSH, CBC #### [facility] [address] [place], [place] [address] LIPID PANEL, BASIC Collected: 08/21/2018 Status: F Source: [place] 12:15 PM [facility] REPOSITORY TYPE CODE TESTS RESULT OUT OF REFERENCE UNITS RANGE LAB CHOL <200 mg/dL Cholesterol 193 Result Comment: <200 mg/dL, Desirable 200-239 mg/dL, Borderline high >239 mg/dL, High LAB TRIGLY <150 mg/dL Triglyceride High 215 Result Comment: <150 mg/dL, Normal 150-199 mg/dL, Borderline high 200-499 mg/dL, High >499 mg/dL, Very high LAB HDL >39 mg/dL HDL-Cholesterol 48 Result Comment: 40-59 mg/dL, Acceptable >59 mg/dL, High: Negative risk factor for coronary heart disease <40 mg/dL, Low: Positive risk factor for coronary heart disease LAB LDL <100 mg/dL LDL-Cholesterol High 102 Result Comment: <100 mg/dL, Optimal 100-129 mg/dL, Near optimal/above optimal 130-159 mg/dL, Borderline high 160-189 mg/dL, High >189 mg/dL, Very high Secondary prevention optimal LDL Cholesterol levels are recommended to be < 70 mg/dL LAB NONHDL <130 mg/dL Non HDL High Cholesterol 145 Result Comment: <130 mg/dL, Optimal 130-159 mg/dL, Near optimal/above optimal 160-189 mg/dL, Borderline high 190-219 mg/dL, High >219 mg/dL, Very high Secondary prevention optimal non HDL Cholesterol levels are recommended to be < 100 mg/dL LAB FT hrs Fasting Time 16 LAB VLDL <30 mg/dL High VLDL Cholesterol 43 LAB TCHDL <5.10 TC:HDL Ratio 4.02 LAB LDLHDL <2.54 LDL:HDL Ratio 2.13 Result Comment: Reference: 1. National Cholesterol Education Program ATP III Guideline At-A-Glance Quick Desk Reference: National Heart, Lung, and Blood [place]. National Institutes of Health. 2001: NIH Publication No. 01-3305. 2. An International Atherosclerosis Society position paper: global recommendations for the management of dyslipidemia: executive summary, Atherosclerosis. 2014: 232(2):410-413. Performed By: #### CMP, LIPB, TSH, CBC #### [facility] [address] [place], [place] [address] TSH Collected: 08/21/2018 Status: F Source: [place] 12:15 PM [facility] REPOSITORY TYPE CODE TESTS RESULT OUT OF RANGE REFERENCE UNITS LAB TSH 0.400-5.500 uU/mL TSH 2.080 Performed By: #### CMP, LIPB, TSH, CBC #### [facility] [address] [place], [place] [address] CBC Collected: 08/21/2018 Status: F Source: [place] 12:15 PM [facility] REPOSITORY TYPE CODE TESTS RESULT OUT OF REFERENCE UNITS RANGE LAB WBC 3.70-11.00 k/uL WBC 8.25 LAB RBC 4.20-6.00 m/uL RBC 5.59 LAB HGB 13.0-17.0 g/dL Hemoglobin 16.9 LAB HCT 39.0-51.0 % High Hematocrit 53.2 LAB MCV 80.0-100.0 fL MCV 95.2 LAB MCH 26.0-34.0 pG MCH 30.2 LAB MCHC 30.5-36.0 g/dL MCHC 31.8 LAB RDWCV 11.5-15.0 % RDW-CV 13.2 LAB PLTCT 150-400 k/uL Platelet Count 170 LAB MPV 9.0-12.7 fL MPV 11.4 LAB ABSNUC <0.01 k/uL Absolute nRBC <0.01 Performed By: #### CMP, LIPB, TSH, CBC #### [facility] [address] [place], [place] [address] PROGRESS Observed: 08/20/2018 Status: COMPLETED Source: [place] 8:04 PM [facility] REPOSITORY HNO ID: [id number] Author: Morgan Crockett Service: (none) Author Type: Physician Type: Progress Notes Filed: 08/20/2018 8:10 PM Note Text: Chief Complaint Patient presents with: Physical HPI Aparna Carrera is a 72 year old male who presents here today to establish with me. New pt to me. Current complaints: tired frequently; concerned about lipids and thyroid, has skin lesions to check, frequent urination COPD: Follows with Dr Bob; on advair and albuterol. Heart: has HTN, follows with Dr Hassan. Has reportedly had normal cath in the last few years. Takes lasix 40 mg daily and losartan HCTZ 50 12.5 daily. Skin: lesions on right shoulder, left arm; not changing. Thyroid; Was on 150 mcg mon-fri and 175 mcg sat-sun; has just been using 150 mcg daily for the last couple of months. Urination: takes two trips to restroom in AM to empty. Nocturia times 1-2. Declines meds at this time. Past medical history, appointments, medications, allergies reviewed. Previous Medical History PAST MEDICAL HISTORY Diagnosis Date - Asbestosis(501) - Asthma - Bronchitis - COPD (chronic obstructive pulmonary disease) (HCC) - Emphysema - SYEDA (obstructive sleep apnea) - Thyroid disorder Previous Surgical History PAST SURGICAL HISTORY Procedure Laterality Date - COLONOSCOP W/ OR W/O [facility] SPEC 04/07/2013 Colonoscopy - COLONOSCOPY 02/2005 [facility] [place] - HERNIA REPAIR HX 1973 lower right side - PAST SURGICAL HISTORY OF 2010 Growth removed from left nose and sikhism - PAST SURGICAL HISTORY OF 2010 Scope down nose - PAST SURGICAL HISTORY OF 2010. Barium swallow - PAST SURGICAL HISTORY OF 2011 Electrocardiogram, and Echo - PAST SURGICAL HISTORY OF 2011. Mammogram of left breast and ultrasound - PAST SURGICAL HISTORY OF 04/2012. Doppler of lower extremities Family History FAMILY HISTORY Problem Relation Age of Onset - Heart Father - Prostate Cancer Father - None Mother at 96 Patient Allergies ALLERGIES Allergen Reactions - Crestor [Rosuvastat* Other: See Comments Muscle cramps - Dobutamine Other: See Comments Severe muscle cramps - Eggs [Egg] Other: See Comments Water Blisters - Flonase [Fluticason* Other: See Comments Nose bleed - Lipitor [Atorvastat* Other: See Comments Muscle spasms - Penicillins Swelling - Perfumes Swelling Throat swelling - Vancomycin Other: See Comments Elevated B/P - Zocor [Simvastatin] Other: See Comments Muscle Spasms Current Medications Current Outpatient Prescriptions on File Prior to Visit: levothyroxine (LEVOXYL) 150 mcg tablet Take 1 tablet by mouth once daily. Take on empty stomach Saturday through Saturday. levothyroxine (LEVOXYL) 175 mcg tablet Take 1 tablet by mouth once daily. Take on empty stomach. Take on Saturday and Saturday. albuterol HFA (PROAIR HFA) 90 mcg/actuation inhaler Inhale 2 Puffs as instructed every 4 hours as needed. fluticasone-salmeterol (ADVAIR DISKUS) 250-50 mcg/dose dsdv Inhale 1 Puff as instructed twice daily. Rinse and gargle mouth after use with water. furosemide (LASIX) 40 mg tablet Take 1 tablet by mouth once daily. aspirin, enteric coated (ASPIRIN, ENTERIC COATED) 325 mg EC tablet Take 1 tablet by mouth once daily. Take with food. Cholecalciferol, Vitamin D3, 2,000 unit cap Take 1 capsule by mouth once daily. (Patient taking differently: Take 1 capsule by mouth once daily. Taking 5000 units ) cyanocobalamin (VITAMIN B-12) 1,000 mcg tab Take 1 tablet by mouth once daily. polyethylene glycol 3350 (MIRALAX) 17 gram/dose powder Take 17 g by mouth once daily. magnesium oxide (MAG-OX) 400 mg tablet Take 1 tablet by mouth once daily. Albuterol Sulfate 0.63 mg/3 mL nebulizer solution Use 1 Ampule via nebulizer every 6 hours as needed. Kgrnzsgwoodvt-Gwfpymkp-Daojfy (CENTRUM SILVER) Tab Take 1 tablet by mouth once daily. Take one(1) tablet daily. CALCIUM CARBONATE (TUMS ORAL) Take by mouth. Take 1000 mg of extra strength as needed. ibuprofen 200 mg ORAL tablet No current facility-administered medications on file prior to visit. Social History Social History Marital status: Spouse name: Years of education: Number of children: Social History Main Topics Smoking status: Former Smoker Packs/day: 5.00 Years: 24.00 Types: Cigarettes Quit date: 09/16/1982 Smokeless tobacco: Never Used Alcohol use: Yes Comment: once monthly EXAM: BP 130/80 Pulse 86 Temp 36.6 ?C (97.9 ?F) (Left Tympanic) Resp 14 Wt 131.5 kg (290 lb) BMI 41.61 kg/m? General Appearance: Well appearing, alert, in no acute distress, well-hydrated, well nourished. and Obese. Skin: several seborrheic keratosis. Neck: Supple, no adenopathy; thyroid symmetric, normal size, no bruits. Lungs: lungs clear to auscultation. No wheezing, rhonchi, rales. Heart: RRR without murmur, gallop, or rubs. No ectopy. Abdomen: Normal abdominal exam, Abdomen soft, non-tender. Bowel sounds normal. No masses, organomegaly. Health Maintenance List ANNUAL PCP TEAM CHRONIC DISEASE VISIT due on 1963 HEPATITIS C SCREENING due on 1989 DIABETES SCREEN due on 02/25/2021 LIPID SCREEN due on 07/11/2022 COLORECTAL CANCER SCREENING,SEE MODIFIER due on 04/07/2023 DTAP,TDAP,TD(2 - Td) due on 07/30/2026 ADULT PREVNAR-13 Completed INFLUENZA Completed PNEUMOVAX AGE 65 AND OVER WITH 5YR LOOKBACK Completed Data reviewed None ASSESSMENT/PLAN: 1. Hypertension, essential - ICD9: 401.9, ICD10: I10 (primary diagnosis) - good control - Continue current medication(s) - Recommended regular aerobic exercise. - Goal of BP <140/90 - COMP METABOLIC PANEL - LIPID PANEL BASIC 2. Pulmonary emphysema, unspecified emphysema type (HCC) - ICD9: 492.8, ICD10: J43.9 Follow with Pulm 3. Hypothyroidism, acquired - ICD9: 244.9, ICD10: E03.9 Check labs; notify of med adjustment if needed - TSH BLD 4. Fatigue, unspecified type - ICD9: 780.79, ICD10: R53.83 Check labs - COMP METABOLIC PANEL - CBC - TSH BLD 5. Frequent urination Follow clinically Follow up in 6 months Morgan Crockett MD CNOV Observed: 08/20/2018 Status: COMPLETED Source: [place] 6:20 PM [facility] REPOSITORY Office Visit (FAMPWS) DEANDREAPARNA LAWSON ([id number]) 1945 M Date Time Provider Department 08/20/18 6:20 PM MORGAN CROCKETT FAMPWS During your visit today, we recorded the following information about you: Temperature Pulse Respiration Blood pressure 97.9 degrees 86/minute 14/minute 130/80 Weight 131.5 kg Morgan Crockett MD 08/20/2018 8:10 PM Signed Chief Complaint Patient presents with: Physical HPI Aparna Carrera is a 72 year old male who presents here today to establish with me. New pt to me. Current complaints: tired frequently; concerned about lipids and thyroid, has skin lesions to check, frequent urination COPD: Follows with Dr Paulino; on advair and albuterol. Heart: has HTN, follows with Dr Hassan. Has reportedly had normal cath in the last few years. Takes lasix 40 mg daily and losartan HCTZ 50 12.5 daily. Skin: lesions on right shoulder, left arm; not changing. Thyroid; Was on 150 mcg sat-sat and 175 mcg sat-sun; has just been using 150 mcg daily for the last couple of months. Urination: takes two trips to restroom in AM to empty. Nocturia times 1-2. Declines meds at this time. Past medical history, appointments, medications, allergies reviewed. Previous Medical History PAST MEDICAL HISTORY Diagnosis Date - Asbestosis(501) - Asthma - Bronchitis - COPD (chronic obstructive pulmonary disease) (HCC) - Emphysema - SYEDA (obstructive sleep apnea) - Thyroid disorder Previous Surgical History PAST SURGICAL HISTORY Procedure Laterality Date - COLONOSCOP W/ OR W/O [facility] SPEC 04/07/2013 Colonoscopy - COLONOSCOPY 02/2005 [facility] [place] - HERNIA REPAIR HX 1973 lower right side - PAST SURGICAL HISTORY OF 2010 Growth removed from left nose and sikhism - PAST SURGICAL HISTORY OF 2010 Scope down nose - PAST SURGICAL HISTORY OF 2010. Barium swallow - PAST SURGICAL HISTORY OF 2011 Electrocardiogram, and Echo - PAST SURGICAL HISTORY OF 2011. Mammogram of left breast and ultrasound - PAST SURGICAL HISTORY OF 04/2012. Doppler of lower extremities Family History FAMILY HISTORY Problem Relation Age of Onset - Heart Father - Prostate Cancer Father - None Mother at 96 Patient Allergies ALLERGIES Allergen Reactions - Crestor [Rosuvastat* Other: See Comments Muscle cramps - Dobutamine Other: See Comments Severe muscle cramps - Eggs [Egg] Other: See Comments Water Blisters - Flonase [Fluticason* Other: See Comments Nose bleed - Lipitor [Atorvastat* Other: See Comments Muscle spasms - Penicillins Swelling - Perfumes Swelling Throat swelling - Vancomycin Other: See Comments Elevated B/P - Zocor [Simvastatin] Other: See Comments Muscle Spasms Current Medications Current Outpatient Prescriptions on File Prior to Visit: levothyroxine (LEVOXYL) 150 mcg tablet Take 1 tablet by mouth once daily. Take on empty stomach Saturday through Saturday. levothyroxine (LEVOXYL) 175 mcg tablet Take 1 tablet by mouth once daily. Take on empty stomach. Take on Saturday and Saturday. albuterol HFA (PROAIR HFA) 90 mcg/actuation inhaler Inhale 2 Puffs as instructed every 4 hours as needed. fluticasone-salmeterol (ADVAIR DISKUS) 250-50 mcg/dose dsdv Inhale 1 Puff as instructed twice daily. Rinse and gargle mouth after use with water. furosemide (LASIX) 40 mg tablet Take 1 tablet by mouth once daily. aspirin, enteric coated (ASPIRIN, ENTERIC COATED) 325 mg EC tablet Take 1 tablet by mouth once daily. Take with food. Cholecalciferol, Vitamin D3, 2,000 unit cap Take 1 capsule by mouth once daily. (Patient taking differently: Take 1 capsule by mouth once daily. Taking 5000 units ) cyanocobalamin (VITAMIN B-12) 1,000 mcg tab Take 1 tablet by mouth once daily. polyethylene glycol 3350 (MIRALAX) 17 gram/dose powder Take 17 g by mouth once daily. magnesium oxide (MAG-OX) 400 mg tablet Take 1 tablet by mouth once daily. Albuterol Sulfate 0.63 mg/3 mL nebulizer solution Use 1 Ampule via nebulizer every 6 hours as needed. Zxjjqtnbvnxzt-Gebkdgsb-Sakfcx (CENTRUM SILVER) Tab Take 1 tablet by mouth once daily. Take one(1) tablet daily. CALCIUM CARBONATE (TUMS ORAL) Take by mouth. Take 1000 mg of extra strength as needed. ibuprofen 200 mg ORAL tablet No current facility-administered medications on file prior to visit. Social History Social History Marital status: Spouse name: Years of education: Number of children: Social History Main Topics Smoking status: Former Smoker Packs/day: 5.00 Years: 24.00 Types: Cigarettes Quit date: 09/16/1982 Smokeless tobacco: Never Used Alcohol use: Yes Comment: once monthly EXAM: BP 130/80 Pulse 86 Temp 36.6 ?C (97.9 ?F) (Left Tympanic) Resp 14 Wt 131.5 kg (290 lb) BMI 41.61 kg/m? General Appearance: Well appearing, alert, in no acute distress, well-hydrated, well nourished. and Obese. Skin: several seborrheic keratosis. Neck: Supple, no adenopathy; thyroid symmetric, normal size, no bruits. Lungs: lungs clear to auscultation. No wheezing, rhonchi, rales. Heart: RRR without murmur, gallop, or rubs. No ectopy. Abdomen: Normal abdominal exam, Abdomen soft, non-tender. Bowel sounds normal. No masses, organomegaly. Health Maintenance List ANNUAL PCP TEAM CHRONIC DISEASE VISIT due on 1963 HEPATITIS C SCREENING due on 1989 DIABETES SCREEN due on 02/25/2021 LIPID SCREEN due on 07/11/2022 COLORECTAL CANCER SCREENING,SEE MODIFIER due on 04/07/2023 DTAP,TDAP,TD(2 - Td) due on 07/30/2026 ADULT PREVNAR-13 Completed INFLUENZA Completed PNEUMOVAX AGE 65 AND OVER WITH 5YR LOOKBACK Completed Data reviewed None ASSESSMENT/PLAN: 1. Hypertension, essential - ICD9: 401.9, ICD10: I10 (primary diagnosis) - good control - Continue current medication(s) - Recommended regular aerobic exercise. - Goal of BP <140/90 - COMP METABOLIC PANEL - LIPID PANEL BASIC 2. Pulmonary emphysema, unspecified emphysema type (HCC) - ICD9: 492.8, ICD10: J43.9 Follow with Pulm 3. Hypothyroidism, acquired - ICD9: 244.9, ICD10: E03.9 Check labs; notify of med adjustment if needed - TSH BLD 4. Fatigue, unspecified type - ICD9: 780.79, ICD10: R53.83 Check labs - COMP METABOLIC PANEL - CBC - TSH BLD 5. Frequent urination Follow clinically Follow up in 6 months Morgan Crockett MD Referring Provider: SELF [200] Allergies As of Date: 08/20/2018 Noted Allergy Reaction CRESTOR (ROSUVASTATIN CALCIUM) 02/25/2018 14 - Other: See Comments Comments: Muscle cramps DOBUTAMINE 02/25/2018 14 - Other: See Comments Comments: Severe muscle cramps EGGS (EGG) 09/29/2010 14 - Other: See Comments Comments: Water Blisters FLONASE (FLUTICASONE) 02/25/2018 14 - Other: See Comments Comments: Nose bleed LIPITOR (ATORVASTATIN CALCIUM) 09/29/2010 14 - Other: See Comments Comments: Muscle spasms PENICILLINS 09/29/2010 7 - Swelling PERFUMES 09/29/2010 7 - Swelling Comments: Throat swelling VANCOMYCIN 09/29/2010 14 - Other: See Comments Comments: Elevated B/P ZOCOR (SIMVASTATIN) 09/29/2010 14 - Other: See Comments Comments: Muscle Spasms Date Reviewed: 08/20/2018 Reviewed by: Sharon Leroy Ma - Fully Assessed Reason for Visit: Physical [83] Primary Visit Diagnosis:Hypertension, essential [I10] Other Visit Diagnoses:Pulmonary emphysema, unspecified emphysema type (HCC) [J43.9] Hypothyroidism, acquired [E03.9] Fatigue, unspecified type [R53.83] Seborrheic keratoses [L82.1] Frequent urination [R35.0] Order(s):COMP METABOLIC PANEL [SQCMP] Order #: [id number] FUTURE LIPID PANEL BASIC [SQLIPB] Order #: [id number] FUTURE CBC [SQCBC] Order #: [id number] FUTURE TSH BLD [SQTSH] Order #: [id number] FUTURE losartan-hydrochlorothiazide (HYZAAR) 50-12.5 mg per tabletTake 1 tablet by mouth once daily.Disp: Rfl: Prescriptions as of 08/20/2018 Sig: LEVOTHYROXINE 150 MCG TABLET Take 1 tablet by mouth once d* LEVOTHYROXINE 175 MCG TABLET Take 1 tablet by mouth once d* ALBUTEROL SULFATE HFA 90 MCG/* Inhale 2 Puffs as instructed * FLUTICASONE 250 MCG-SALMETERO* Inhale 1 Puff as instructed t* FUROSEMIDE 40 MG TABLET Take 1 tablet by mouth once d* ASPIRIN 325 MG TABLET,DELAYED* Take 1 tablet by mouth once d* CHOLECALCIFEROL (VITAMIN D3) * Take 1 capsule by mouth once * Patient taking differently: Take 1 capsule by mouth once * CYANOCOBALAMIN (VIT B-12) 1,0* Take 1 tablet by mouth once d* POLYETHYLENE GLYCOL 3350 17 G* Take 17 g by mouth once daily. MAGNESIUM OXIDE 400 MG (241.3* Take 1 tablet by mouth once d* ALBUTEROL SULFATE 0.63 MG/3 M* Use 1 Ampule via nebulizer ev* * TIMZUBASEOYG-XDGJAEAI-UIBANI * Take 1 tablet by mouth once d* * TUMS ORAL Take by mouth. Take 1000 mg * * IBUPROFEN 200 MG TABLET LOSARTAN 50 MG-HYDROCHLOROTHI* Take 1 tablet by mouth once d* Problem List As Of Date 08/20/2018 Noted Resolved SYEDA (obstructive sleep apnea) [G47.33] COPD (chronic obstructive pulmonary disease) [J* Thyroid disorder [E07.9] Bronchitis [J40] Asbestosis [J61] Prescriptions ordered this encounter Disp Refills Start End LOSARTAN 50 MG-HYDROCHLOROTHIAZIDE 1* 08/20/2018 Class: Med Update Route: ORAL Sig: Take 1 tablet by mouth once daily. Medications Discontinued During This Encounter losartan 25 mg tablet 08/20/2018 Class: Historical Med Route: ORAL Sig: Take 25 mg by mouth once daily. Take one(1) tablet daily. Disc: Reason for discontinue is not on file. Disposition: Return in about 6 months (around 02/18/2019). Follow-up and Disposition History Recorded Encounter Status:Closed by MORGAN CROCKETT MD on 08/20/18 6 MINUTE WALK TEST Observed: 08/07/2018 Status: F Source: [place] 8:39 AM [facility] [place] [facility] Pulmonary Services/Neurology [address] [place], [place] [address] [address] MR#: [id number] Acct: [id number] Name: APARNA CARRERA Rep #: [id number] : 1945 72 From: Codey Cancino DO Referring Dr: Stewart Bob MD Date: Ordering Dr: Sex: M C Location: PSN PSN 6 Minute Walk Test - 6 Minute Walk Test 6 Minute Walk Test: 6 Minute Walk Test PSN:6-Minute Walk Test Start: 08/06/18 09:15 Freq: Status: Active Protocol: [id number] Document 08/06/18 09:16 FRANCESCO (Rec: 08/06/18 09:18 SFENTREILLY [id number]) 6 Minute Walk Test Date Performed 08/06/18 Time Performed 09:00 Height 5 ft 10 in Weight: 288 lb Weight in Pounds 288.[address]: Stewart Bob Assistive device used: None Pre-test Oxygen Delivery Method Room Air Pulse Ox (%) 93 Pulse Rate (60-100 beats/min) 76 Dyspnea Richard Scale (0-10) 0.5 Exertion Richard Scale (6-20) 6 1st minute Oxygen Delivery Method Room Air Pulse Ox (%) 93 Pulse Rate (60-100 beats/min) 87 2nd minute Oxygen Delivery Method Room Air Pulse Ox (%) 91 Pulse Rate (60-100 beats/min) 95 3rd minute Oxygen Delivery Method Room Air Pulse Ox (%) 93 Pulse Rate (60-100 beats/min) 97 Number of Rests Taken 1 4th minute Oxygen Delivery Method Room Air Pulse Ox (%) 93 Pulse Rate (60-100 beats/min) 92 5th minute Oxygen Delivery Method Room Air Pulse Ox (%) 92 Pulse Rate (60-100 beats/min) 94 6th minute Oxygen Delivery Method Room Air Pulse Ox (%) 93 Pulse Rate (60-100 beats/min) 98 Dyspnea Richard Scale (0-10) 4 Exertion Richard Scale (6-20) 13 Post-test Oxygen Delivery Method Room Air Pulse Ox (%) 95 Pulse Rate (60-100 beats/min) 79 Full Laps Walked 12 Partial Lap, Number of Tiles Walked 60 Total Distance Walked (ft) 768 - Interpretation Interpretation: The patient ambulated 768 feet over the course of 6 minutes beginning on room air without assistive devices or breaks. Pretesting oxygen saturation was noted to be 93% on room air. With ambulation, the wilbur oxygen saturation was 91%. Although there was evidence of impaired walk distance, there was no significant exertional oxygen desaturation. - Recommendations Recommendations: There is no indication for the use of supplemental oxygen at this time. 08/07/18 0839 <Electronically signed by Codey Cancino DO> Date Codey Cancino DO CC: Date Dictated: 08/07/18837 Date Transcribed: 08/07/18837 Clinical Training Specialist: Codey Cancino DO Signed PULMONARY VISIT REPORT Observed: 08/04/2018 Status: F Source: [place] 10:35 AM [facility] [place] [facility] Pulmonary Medicine [address] [place] [address] OFFICE VISIT Date of Service: 08/04/18 MR#: [id number] Acct: [id number] Name: APARNA CARRERA Rep #: [id number] : 1945 Provider: Stewart Bob MD Age/Sex: 72/M Location: [facility] [place] Status: Signed Assessment AND Plan Problems 1. Diastolic CHF with preserved left ventricular function, NYHA class 2 I50.30 2. Moderate persistent asthma without complication J45.40 3. Obesity (BMI 30-39.9) E66.9 4. SYEDA (obstructive sleep apnea) G47.33 Plan Patient is noncompliant with SYEDA therapy. Patient's CT scan did not show significant bronchiectasis as previously expected. Patient does have some atelectasis associated with left hemidiaphragm elevation, which patient states his home. Patient does use TV dinners frequently and there is some concern for exacerbation of diastolic dysfunction. Will obtain a echocardiogram for evaluation. We will also obtain a walking oximetry as patient did desaturate as low as 91% previously and may require supplemental oxygen at this time. Patient voiced understanding. Obtain echocardiogram and complete PFT. No change of medications. Orders Orders: Medications New: Plan Detail Follow Up 3 Months (CSM) HPI 3 M FU: Chief Complaint: Shortness of breath on exertion Details: Patient is a 72-year-old male, currently under the care of Dr. Tilley, who presents for evaluation secondary to continued shortness of breath on exertion. Since last visit, patient denies any ER visits, hospitalizations or prednisone burst. Patient has gone back to using Advair for cost considerations. Patient feels he is subjectively worse compared to previous. Patient reports that he has been compliant with Advair therapy. Patient has noted a sore in the upper left side of the mouth. Patient denies any thrush, hoarseness or sore throat otherwise. Patient reports he is having worsening difficulty with ambulating to the mailbox. Patient states that he needs to stop at his neighbor's yard occasionally for up to 15 minutes to recover. Patient denies any syncope or cough. Patient states he can have a dry cough, but this is typically not with exertion, but with talking excessively. Patient has noted some clear nasal drainage that he attributes to the colder weather. Patient has not used Pro Air for a couple of weeks stating no indication. Imaging personally reviewed with the patient CT chest (05/23/2018): Elevated left hemidiaphragm with minimal left basilar atelectasis with no bronchiectasis appreciated HPI Comments Details: Intake Vital Signs08/04/18 Height 5 ft 10 in 08/04/18 Weight: 130.181 kg Intake Visit Reasons: 3 M FU School Lunch Manager Required: No Accompanied by: Self Is patient in pain?: No Allergies Penicillins Allergy (Severe, Verified 08/04/18 08:25) Anaphylaxis perfume Allergy (Intermediate, Verified 08/04/18 08:25) Other-triggers asthma attack perflutren [From Definity] Allergy (Verified 08/04/18 08:25) Unknown vancomycin Adverse Reaction (Intermediate, Verified 08/04/18 08:25) Other-htn atorvastatin [From Lipitor] Adverse Reaction (Mild, Verified 08/04/18 08:25) Other-myalgias dobutamine Adverse Reaction (Mild, Verified 08/04/18 08:25) Other-muscle spasm fluticasone [From Flonase] Adverse Reaction (Mild, Verified 08/04/18 08:25) Other-nosebleed rosuvastatin [From Crestor] Adverse Reaction (Mild, Verified 08/04/18 08:25) Other-myalgias simvastatin [From Zocor] Adverse Reaction (Mild, Verified 08/04/18 08:25) Other-myalgias eggs Adverse Reaction (Mild, Uncoded 08/04/18 08:25) Other-water blisters Medications Cyanocobalamin (Vitamin B-12) [B-12] 1,000 mcg PO DAILY 09/27/16 [History Confirmed 08/04/18] Garlic 400 mg PO DAILY 09/27/16 [History Confirmed 08/04/18] Krill Oil/Davey-3/Dha/Epa [Davey-3 Krill Oil Softgel] 1 ea PO DAILY 09/27/16 [History Confirmed 08/04/18] aspirin 81 mg tablet,delayed release 81 mg PO DAILY #90 tab 10/28/17 [Rx Confirmed 08/04/18] cholecalciferol (vitamin D3) 2,000 unit capsule 4,000 unit PO DAILY cap 01/22/18 [History Confirmed 08/04/18] ibuprofen 200 mg capsule 400 mg PO TID-QID PRN cap 01/22/18 [History Confirmed 08/04/18] levothyroxine 150 mcg tablet 150 mcg PO .COMPLEX 01/22/18 [History Confirmed 08/04/18] levothyroxine 175 mcg tablet 175 mcg PO .COMPLEX 01/22/18 [History Confirmed 08/04/18] losartan 50 mg-hydrochlorothiazide 12.5 mg tablet 1 tab PO QDAY 01/22/18 [History Confirmed 08/04/18] magnesium oxide 400 mg capsule 400 mg PO QDAY cap 01/22/18 [History Confirmed 08/04/18] mrkctbpb-hju-sirsn acid 0.4 mg-lycopene 300 mcg-lutein 250 mcg tablet 1 tab PO QDAY 01/22/18 [History Confirmed 08/04/18] polyethylene glycol 3350 17 gram/dose oral powder 17 g PO QDAY g 01/22/18 [History Confirmed 08/04/18] turmeric root extract 500 mg capsule 500 mg PO QDAY 01/22/18 [History Confirmed 08/04/18] albuterol sulfate HFA 90 mcg/actuation aerosol inhaler 2 puff INHALATION Q4H PRN #18 g 04/30/18 [Rx Confirmed 08/04/18] furosemide 40 mg tablet 40 mg PO QDAY #90 tab 05/30/18 [Rx Confirmed 08/04/18] fluticasone 250 mcg-salmeterol 50 mcg/dose blistr powdr for inhalation 1 inh INHALATION BID 08/04/18 [History Confirmed 08/04/18] PFSH Medical History Nonrheumatic aortic (valve) insufficiency (Chronic) Nonrheumatic tricuspid (valve) insufficiency (Chronic) Pneumonia (Acute) Emphysema lung (Chronic) Bronchitis (Acute) Bronchiectasis (Suspected) Asthma (Chronic) Obesity (BMI 30-39.9) (Chronic) Nicotine dependence in remission (Chronic) Neuropathy (Chronic) GERD (gastroesophageal reflux disease) (Chronic) Hypothyroidism (Chronic) Obstructive sleep apnea (Chronic) Hyperlipidemia (Chronic) Hypertension (Chronic) Dyspnea (Acute) Groin mass (Acute) Asbestos exposure (Chronic) Cyst of right kidney (Chronic) Lung nodule (Chronic) Thyroid disease (Chronic) Torn cartilage (Resolved) chipped bones (Resolved) Surgical History History of repair of rotator cuff (Resolved) hernia repair (Resolved) History of right and left heart catheterization (Chronic 09/28/16) S/P trigger finger release (Resolved) finger surgery (Resolved) pin placement (Resolved) Family History Father CAD (coronary artery disease) Social History Smoking Status: Former smoker how long ago did patient quit smokin, 4p/d second hand exposure: Yes alcohol intake: current alcohol intake frequency: holidays/special occasions only Review of Systems Const CONSTITUTIONAL: Positive fatigue; negative anorexia, body ache, chills, daytime sleepiness, fever(s), night sweats, oral thrush, stops breathing during sleep, weight loss, sleeping in chair, weight loss, weight gain, frequent colds, seasonal allergies, other, headache(s) or orthopnea EETM Ear Nose Throat Mouth: Positive hard of hearing and nasal discharge; negative hearing normal, hoarseness, dry mouth in morning, change in vision, itchy eyes, eye pain, swallowing Difficulty, ear pain, nose bleed, headache(s), mouth pain, nasal congestion, post nasal drip, sinus pain, sinus pressure, sore throat or other Cardio Cardiovascular: Negative chest pain, chest pain at rest, chest pain with activity, irregular heart rhythm, edema, shortness of breath when lying down, palpitations, murmur or other Resp Respiratory: Positive as per HPI, shortness of breath shortness of breath: Positive worsening, wheezing, cough cough: Positive non-productive and inhalers; negative pain with cough, chest congestion, chest tightness, pain on inspiration, increase use of rescue inhalers, snoring, apnea or other Gastro Gastrointestional: Negative bloody stools, change in appetite, difficulty swallowing, reflux, hematemesis, melena stool, loose stool, constipation or other Genitourinary: Negative blood in urine, nocturia, pain with urination or other Musc Musculoskeletal: Negative body pain, back pain, neck pain or other Skin/Breast Skin/Breast: Negative dry skin, itching, rash, unusual bruising, breast lump or other Neuro Neurological: Negative restless legs, confusion, weakness or other Psych Psychocological: Negative abnormal sleep pattern, anxiety, thoughts of hurting self/others, hopelessness or other Lymph Lymphatic: Negative easy bleeding, easy bruising, swollen lymph nodes or other Exam Const Constitutional: Positive conversant, cooperative, in no acute respiratory distress, healthy appearing, well developed, well nourished, good hygiene, dyspenic and obese; negative frail appearing, wearing supplemental oxygen or ill appearing Head Head: Positive normocephalic and atraumatic; negative cyanosis of lips/distal nose, frontal sinus tenderness or maxillary sinus tenderness Eyes Eye: Positive clear conjunctiva; negative nystagmus, scleral abnormality or cataract present Ears Ear: Positive hard of hearing and external ears normal; negative hearing normal Nose Nose: Positive external nose normal, septum normal and clear nasal discharge; negative epistaxis or nasal polyp Mouth Mouth: Positive oral mucosae normal, no lesions and dentures (Also noted at the upper right corner of the plate on the lateral aspect); negative post nasal drip or oral thrush present Mallampati Score: II: Mallampati Score Neck Neck: Positive normal visual inspection, full ROM, trachea midline and male neck greater than 43 cm (17 in); negative lymphadenopathy or JVD Chest Wall Chest: Positive normal inspection of the chest and symmetric chest movement; negative crepitus or tenderness Resp lung sounds: Positive clear to auscultation and prolonged expiratory time; negative wheezes, rhonchi, rales, use of accessory muscles, wheeze present on forced exhalation or dullness to percussion Cardio Cardiac: Positive regular rate, regular rhythm, S1 normal and S2 normal; negative murmur, rub or gallop GI GI: Positive normal to inspection, normal bowel sounds and obese; negative distended, ascites or epigastric tenderness Genitourinary: Positive deferred Musc Musculoskeletal: Positive steady gait; negative using an assistive device for ambulation, kyphosis or scoliosis Skin Pulmonary Skin Exam: Positive intact; negative rash, lesion, ulcers, erythema, scaly or dermal atrophy Pulses Pulse: Yes radial pulses present Extremities Extremities: Yes capillary refill normal, No clubbing, No cyanosis, Yes edema (1+ lower extremity bilaterally), No stasis dermatitis Neuro Neurologic: Yes conversant, Yes no focal neuro deficits, Yes normal concentration, Yes understands questions, Yes cooperative, Yes normal cognition, Yes normal coordination Lymph Lymphatic: No lymphadenopathy Psych Appearance: Positive grossly normal Mental Status: Positive mental status grossly normal Mood: Positive congruent mood Affect: Positive normal affect Coding Level of Care Code Off vis,est,level 4 Diagnoses Diastolic CHF with preserved left ventricular function, NYHA class 2 I50.30 Moderate persistent asthma without complication J45.40 Asthma severity: moderate Asthma persistence: persistent Asthma complication type: uncomplicated Obesity (BMI 30-39.9) E66.9 SYEDA (obstructive sleep apnea) G47.33 08/04/18 1035 <Electronically signed by Stewart Bob MD> Date Stewart Bob MD [facility] Signature: Date (if applicable) CC: Ubaldo Hassan MD; Edenilson Tilley MD CHEST WITHOUT Observed: 05/23/2018 Status: F Source: [place] 7:48 AM [facility] [place] [facility] Imaging Services [address] [place] [address] Chest without Contrast MR#: [id number] Acct: [id number] Name: APARNA CARRERA Rep #: [id number] : 1945 M 72 From: Tony Ocampo DO PCP: Indigo SHAIKH,Morgan Status: REG CLI Study: Chest without Contrast Date of Exam: 05/23/18 Exam# [id number] Ordering Dr: Stewart Bob MD STUDY: CT CHEST WITHOUT CONTRAST REASON FOR EXAM: Male, 72 years old. Wheezing. Bronchiectasis. RADIATION DOSAGE (If Supplied By Facility): CTDIvol = ( 20.15 ) mGy, DLP = ( 689.75 ) mGycm TECHNIQUE: Transaxial imaging was performed without the administration of intravenous contrast material. Multiplanar coronal and sagittal images were reformatted. Individualized dose optimization techniques were used for this CT. COMPARISON: Chest, September 20, 2016. FINDINGS: The lungs are normal. There is mild elevation of the left hemidiaphragm with minimal atelectasis. There is no demonstrated pleural abnormality. Normal heart and pericardium. There are minimal calcifications of the coronary arteries. Normal mediastinum. Normal hilar regions. Normal unenhanced pulmonary arteries. Normal aorta arch and descending thoracic aorta. There are multi-level degenerative changes of the thoracic spine. There is no demonstrated abnormality of the visualized upper abdomen. CT/Chest without Contrast IMPRESSION: Elevated left hemidiaphragm with minimal left basilar atelectasis. This is similar to findings seen on the chest film. There is no acute cardiopulmonary disease. Electronically Signed: Tony MurrayonDO at 20:22 EDT Tel [phone], Service support , CC: Stewart Bob MD; Morgan Crockett MD Clinical Training Specialist: Signed CARDIOLOGY VISIT Observed: 05/14/2018 Status: F Source: [place] REPORT 3:56 PM [facility] [place] [facility] [address] [place] [address] OFFICE VISIT Date of Service: 05/12/18 MR#: [id number] Acct: [id number] Name: APARNA CARRERA Rep #: [id number] : 1945 Provider: Ubaldo Hassan MD Age/Sex: 72/M [place] [facility] [place] Status: Signed HPI HPI Details: APARNA CARRERA, is a 72 M who presents to the office today for Intake Vital Signs05/12/18 Height 5 ft 10 in 05/12/18 Weight: 288 lb 05/12/18 Body Mass Index (BMI) 41.3 05/12/18 Blood Pressure 120/60 Intake Visit Reasons: 6 M FU School Lunch Manager Required: No Is patient in pain?: No Allergies Penicillins Allergy (Severe, Verified 05/12/18 15:12) Anaphylaxis perfume Allergy (Intermediate, Verified 05/12/18 15:12) Other-triggers asthma attack perflutren [From Definity] Allergy (Verified 05/12/18 15:12) Unknown vancomycin Adverse Reaction (Intermediate, Verified 05/12/18 15:12) Other-htn atorvastatin [From Lipitor] Adverse Reaction (Mild, Verified 05/12/18 15:12) Other-myalgias dobutamine Adverse Reaction (Mild, Verified 05/12/18 15:12) Other-muscle spasm fluticasone [From Flonase] Adverse Reaction (Mild, Verified 05/12/18 15:12) Other-nosebleed rosuvastatin [From Crestor] Adverse Reaction (Mild, Verified 05/12/18 15:12) Other-myalgias simvastatin [From Zocor] Adverse Reaction (Mild, Verified 05/12/18 15:12) Other-myalgias eggs Adverse Reaction (Mild, Uncoded 04/29/18 12:48) Other-water blisters Medications Cyanocobalamin (Vitamin B-12) [B-12] 1,000 mcg PO DAILY 09/27/16 [History Confirmed 05/12/18] Garlic 400 mg PO DAILY 09/27/16 [History Confirmed 05/12/18] Krill Oil/Davey-3/Dha/Epa [Davey-3 Krill Oil Softgel] 1 ea PO DAILY 09/27/16 [History Confirmed 05/12/18] aspirin 81 mg tablet,delayed release 81 mg PO DAILY #90 tab 10/28/17 [Rx Confirmed 05/12/18] furosemide 40 mg tablet 40 mg PO QDAY 11/01/17 [History Confirmed 05/12/18] cholecalciferol (vitamin D3) 2,000 unit capsule 4,000 unit PO DAILY cap 01/22/18 [History Confirmed 05/12/18] ibuprofen 200 mg capsule 400 mg PO TID-QID PRN cap 01/22/18 [History Confirmed 05/12/18] levothyroxine 150 mcg tablet 150 mcg PO .COMPLEX 01/22/18 [History Confirmed 05/12/18] levothyroxine 175 mcg tablet 175 mcg PO .COMPLEX 01/22/18 [History Confirmed 05/12/18] losartan 50 mg-hydrochlorothiazide 12.5 mg tablet 1 tab PO QDAY 01/22/18 [History Confirmed 05/12/18] magnesium oxide 400 mg capsule 400 mg PO QDAY cap 01/22/18 [History Confirmed 05/12/18] pxhohjgz-iwe-kagwd acid 0.4 mg-lycopene 300 mcg-lutein 250 mcg tablet 1 tab PO QDAY 01/22/18 [History Confirmed 05/12/18] polyethylene glycol 3350 17 gram/dose oral powder 17 g PO QDAY g 01/22/18 [History Confirmed 05/12/18] turmeric root extract 500 mg capsule 500 mg PO QDAY 01/22/18 [History Confirmed 05/12/18] albuterol sulfate HFA 90 mcg/actuation aerosol inhaler 2 puff INHALATION Q4H PRN #18 g 04/30/18 [Rx Confirmed 05/12/18] [facility] Medical History Nonrheumatic aortic (valve) insufficiency (Chronic) Nonrheumatic tricuspid (valve) insufficiency (Chronic) Pneumonia (Acute) Emphysema lung (Chronic) Bronchitis (Acute) Bronchiectasis (Suspected) Asthma (Chronic) Obesity (BMI 30-39.9) (Chronic) Nicotine dependence in remission (Chronic) Neuropathy (Chronic) GERD (gastroesophageal reflux disease) (Chronic) Hypothyroidism (Chronic) Obstructive sleep apnea (Chronic) Hyperlipidemia (Chronic) Hypertension (Chronic) Dyspnea (Acute) Groin mass (Acute) Asbestos exposure (Chronic) Cyst of right kidney (Chronic) Lung nodule (Chronic) Thyroid disease (Chronic) Torn cartilage (Resolved) chipped bones (Resolved) Surgical History History of repair of rotator cuff (Resolved) hernia repair (Resolved) History of right and left heart catheterization (Chronic 09/28/16) S/P trigger finger release (Resolved) finger surgery (Resolved) pin placement (Resolved) Family History Father CAD (coronary artery disease) Social History Smoking Status: Former smoker how long ago did patient quit smokin, 4p/d second hand exposure: Yes alcohol intake: current alcohol intake frequency: holidays/special occasions only ROS Const Const: Positive for other (Very SOB with humidity, has been seeing Dr. Bob); negative for fatigue, weakness, body ache, fever(s), headache(s), chills, frequent falls, night sweats, daytime sleepiness, difficulty sleeping, excessive sweating, weight gain, weight loss, increased appetite, poor appetite or anorexia Eyes Eyes: Negative for blind spots, loss of peripheral vision, transient loss of vision, blurry vision, change in vision, double vision, floaters, tunnel vision or other ENT ENT: Negative for headache(s), dizziness, hearing loss, tinnitus, Nosebleed/epistaxis, balance problems, post nasal drip, lip swelling, tongue swelling, bleeding gums, hoarseness, neck pain, dry mouth or other Cardio Chest Pain: No Palpitations: No Edema: Bilateral (pitting to mid amaya bilaterally) Muscle aches with walking: None Resp Respiratory: Positive for SOB with activity and Cough (productive clear to barraza); negative for SOB at rest, SOB orthopnea\SOB lying down, Coughing up blood/hemoptysis, chest congestion, pain on inspiration, snoring, stridor, wheezing, crackles, paroxysmal nocturnal dyspnea or other GI GI: Negative nausea, vomiting, heartburn, constipation, belching, bloating, cramping, vomiting blood/hematemesis, bright, red blood in stools, black,tarry stools, loose stools, Difficulty Swallowing or other : Negative for hematuria, frequent nighttime urination/ nocturia, erectile dysfunction or abnormal vaginal bleeding Musc Musc: Negative for balance problems, muscle aches/ myalgia, muscle weakness or joint pain Skin Skin: Negative redness, non-healing lesions, rash, unusual bruising, skin ulcer, wounds, jaundice or other Neuro Neuro: Positive for other (neuropathy in legs); negative for weakness, headache(s), frequent falls, blurry vision, double vision, dizziness, lightheadedness, near syncope, syncope, orthostatic symptoms, confusion, memory loss, restless legs, vertigo, seizures or lack of coordination Fito Hematologic/Lymphatic: Negative for easy bleeding, easy bruising, enlarged lymph nodes or other Endo Endo: Negative for fatigue, excessive sweating, cold intolerance, heat intolerance, flushing, increased thirst/drinking, increased hunger, hair loss, hair growth or other Psych Psych: Negative for anxiety, depression, thoughts of harming anyone, thoughts of harming yourself, visual hallucinations, panic attacks or audible hallucinations Allergy Allergy/Immunology: Negative for lip swelling, Negative for tongue swelling, Negative for rash, Negative for throat swelling, Negative for hives Assessment AND Plan Medications Discontinued: fluticasone-salmeterol 113-14 mcg/actuation (AirDuo RespiCl1 puff Inhalation Q12H J45.909 ick) Discontinued Reason: Order Changed Plan Detail Follow Up +6M (Mo) Coding Level of Care Code Off vis,est,level 3 Coding Level of Care Code Off vis,est,level 3 05/14/18 1879 <Electronically signed by Ubaldo Hassan MD> Date Ubaldo Hassan MD Cosigner Signature: Date (if applicable) CC: Morgan Crockett MD CARDIOLOGY VISIT Observed: 05/12/2018 Status: F Source: [place] REPORT 3:28 PM [facility] [place] [facility] [address] [place] [address] OFFICE VISIT Date of Service: 05/12/18 MR#: [id number] Acct: [id number] Name: APARNA CARRERA Rep #: [id number] : 1945 Provider: Ubaldo Hassan MD Age/Sex: 72/M Location[place] [facility] [place] Status: Signed HPI HPI Chief Complaint: Routine f/u Details: Referring physician: Dr. Edenilson Tilley Mr. Carrera is a very pleasant 72-year-old moderately obese nondiabetic gentleman, with a heavy previous smoking history smoking 3-5 packs per day for 28 years quit about 30 years ago. He has been diagnosed with COPD, obstructive sleep apnea, and apparently has an elevated left jorge-diaphragm as well. He has never been told he had any coronary artery disease. He does have risk factors including his age, hypercholesterolemia, previous smoking, hypertension. The patient was originally referred to our office for increasing dyspnea on exertion, increasing fatigue, decreased energy level, and tiredness. Unfortunately the patient is unable to use his CPAP due to a chronic skin staph infection which causes inflammation of his skin around his mouth. Patient does use his inhalers, and was recently placed on beta maximino therapy about 2 years ago. Ever since beta maximino initiation he has had increasing use of his inhalers, decreased energy, and shortness of breath. Recently his Hyzaar was switched to Cozaar for unknown reasons which may have been an oversight in prescription ordering. His last echocardiogram was in 2011 which showed an EF of 65%, diastolic dysfunction, aortic sclerosis with mild AI, and RVSP of 32 mmHg. Patient denies any exertional angina, chest pain, jaw pain, or left arm pain. He he states he can walk 2 blocks or 2 flights of stairs but would be profoundly dyspneic at the end of that. Patient underwent a dobutamine echocardiogram on 07/2016, which appeared to be negative for inducible ischemia although we have poor echo windows requiring Definity agent. patient underwent left her catheterization on 09/28/16 which showed angiographically normal coronaries LVEF is 75%, normal right-sided pressures, no evidence of mitral stenosis. patient reports he sees a inventory control assistant in the [place] area, and underwent full pulmonary function test in January 2016. He does have sleep apnea but is unable to use his CPAP. He denies any narcoleptic tendencies but does have daytime somnolence. Patient wishes to relocate his pulmonary physician to [facility] given the distance of travel And to consolidate his care. We increased his hydrochlorothiazide to 25 mg by mouth daily on our previous to last visit given his lower extremity edema, and due to it appears to be a skin allergy was unable to tolerate ELANA hose or Baldemar bandages. His shortness of breath has remained about the same, and his lower extremity edema is about trace today. Patient's main issue is dyspnea on exertion and shortness of breath which appears to be worsening since our last visit. He is awaiting to see his inventory control assistant in [place] on November 19 of this year. His most recent 6 minute walk test on 11/02/16 showed a desaturated to around 93% and did not appear to require O2 requirement at this time. FORMAN is his main issue is dyspnea on exertion. PFTs dated 04/21/18 moderately severe mixed ventilatory defect with preserved diffusion capacity consistent with the diagnosis of chronic bronchitis. Secondary restrictive process, such as body habitus, cannot be excluded. Since his last visit his main issue is been dyspnea on exertion, and he has seen Dr. Bob. Apparently he had stopped all his inhaler therapy, and a repeat PFT did not show much difference than his previous PFT. Nonetheless he is on Advair, and albuterol as a bail out. He has not had a CT scan of his lungs as of yet and this is pending. He sees Dr. Bob again in July 2018. In our office today his blood pressure is 120/60, pulse is 76 and regular. His Physical exam demonstrates severe obesity, very distant breath sounds bilaterally, regular rate and rhythm, normal S1/S2. No murmurs are detected. He has Trace to 1+ bilateral lower extremity edema. EKG previously demonstrates normal sinus rhythm with no evidence of previous myocardial infarction. Lipids as of 07/05/16 show an HDL of 37 and an LDL of 91. Intake Vital Signs05/12/18 Height 5 ft 10 in 05/12/18 Weight: 288 lb 05/12/18 Body Mass Index (BMI) 41.3 05/12/18 Blood Pressure 120/60 Intake Visit Reasons: 6 M FU Allergies Penicillins Allergy (Severe, Verified 05/12/18 15:12) Anaphylaxis perfume Allergy (Intermediate, Verified 05/12/18 15:12) Other-triggers asthma attack perflutren [From Definity] Allergy (Verified 05/12/18 15:12) Unknown vancomycin Adverse Reaction (Intermediate, Verified 05/12/18 15:12) Other-htn atorvastatin [From Lipitor] Adverse Reaction (Mild, Verified 05/12/18 15:12) Other-myalgias dobutamine Adverse Reaction (Mild, Verified 05/12/18 15:12) Other-muscle spasm fluticasone [From Flonase] Adverse Reaction (Mild, Verified 05/12/18 15:12) Other-nosebleed rosuvastatin [From Crestor] Adverse Reaction (Mild, Verified 05/12/18 15:12) Other-myalgias simvastatin [From Zocor] Adverse Reaction (Mild, Verified 05/12/18 15:12) Other-myalgias eggs Adverse Reaction (Mild, Uncoded 04/29/18 12:48) Other-water blisters Medications Cyanocobalamin (Vitamin B-12) [B-12] 1,000 mcg PO DAILY 09/27/16 [History Confirmed 05/12/18] Garlic 400 mg PO DAILY 09/27/16 [History Confirmed 05/12/18] Krill Oil/Davey-3/Dha/Epa [Davey-3 Krill Oil Softgel] 1 ea PO DAILY 09/27/16 [History Confirmed 05/12/18] aspirin 81 mg tablet,delayed release 81 mg PO DAILY #90 tab 10/28/17 [Rx Confirmed 05/12/18] furosemide 40 mg tablet 40 mg PO QDAY 11/01/17 [History Confirmed 05/12/18] cholecalciferol (vitamin D3) 2,000 unit capsule 4,000 unit PO DAILY cap 01/22/18 [History Confirmed 05/12/18] ibuprofen 200 mg capsule 400 mg PO TID-QID PRN cap 01/22/18 [History Confirmed 05/12/18] levothyroxine 150 mcg tablet 150 mcg PO .COMPLEX 01/22/18 [History Confirmed 05/12/18] levothyroxine 175 mcg tablet 175 mcg PO .COMPLEX 01/22/18 [History Confirmed 05/12/18] losartan 50 mg-hydrochlorothiazide 12.5 mg tablet 1 tab PO QDAY 01/22/18 [History Confirmed 05/12/18] magnesium oxide 400 mg capsule 400 mg PO QDAY cap 01/22/18 [History Confirmed 05/12/18] clltziyp-buu-unsfa acid 0.4 mg-lycopene 300 mcg-lutein 250 mcg tablet 1 tab PO QDAY 01/22/18 [History Confirmed 05/12/18] polyethylene glycol 3350 17 gram/dose oral powder 17 g PO QDAY g 01/22/18 [History Confirmed 05/12/18] turmeric root extract 500 mg capsule 500 mg PO QDAY 01/22/18 [History Confirmed 05/12/18] fluticasone 113 mcg-salmeterol 14 mcg/actuation breath activated powdr 1 puff INHALATION Q12H #1 ea 04/29/18 [Rx Confirmed 05/12/18] albuterol sulfate HFA 90 mcg/actuation aerosol inhaler 2 puff INHALATION Q4H PRN #18 g 04/30/18 [Rx Confirmed 05/12/18] [facility] Medical History Nonrheumatic aortic (valve) insufficiency (Chronic) Nonrheumatic tricuspid (valve) insufficiency (Chronic) Pneumonia (Acute) Emphysema lung (Chronic) Bronchitis (Acute) Bronchiectasis (Suspected) Asthma (Chronic) Obesity (BMI 30-39.9) (Chronic) Nicotine dependence in remission (Chronic) Neuropathy (Chronic) GERD (gastroesophageal reflux disease) (Chronic) Hypothyroidism (Chronic) Obstructive sleep apnea (Chronic) Hyperlipidemia (Chronic) Hypertension (Chronic) Dyspnea (Acute) Groin mass (Acute) Asbestos exposure (Chronic) Cyst of right kidney (Chronic) Lung nodule (Chronic) Thyroid disease (Chronic) Torn cartilage (Resolved) chipped bones (Resolved) Surgical History History of repair of rotator cuff (Resolved) hernia repair (Resolved) History of right and left heart catheterization (Chronic 09/28/16) S/P trigger finger release (Resolved) finger surgery (Resolved) pin placement (Resolved) Family History Father CAD (coronary artery disease) Social History Smoking Status: Former smoker how long ago did patient quit smokin, 4p/d second hand exposure: Yes alcohol intake: current alcohol intake frequency: holidays/special occasions only Cardiology Exam Const Appearance: cooperative, healthy appearing and no acute distress Nutritional Appearance: well nourished Orientation: alert, oriented x3 and oriented to person Head Head: normal to inspection, atraumatic and normocephalic Nose: external nose normal Face and Sinus: face symmetric Mouth: oral mucosae normal Eyes General: appearance normal, both eyes and all related structures Eyelids: eyelids normal Conjunctivae: conjunctivae normal Pupils: PERRL and normal by confrontation EOM: EOM intact bilaterally Neck Neck: normal visual inspection and full ROM Carotids: normal carotid upstroke Chest Chest inspection: normal inspection of the chest Auscultation: Bilateral: Clear to Auscultation Cardio Palpation: normal PMI Rate: regular rate Rhythm: regular rhythm Heart sounds: S1 normal and S2 normal GI GI: normal to inspection, no hepatosplenomegaly and bowel sounds present Neuro General: alert, oriented x3, awake, CN's II-XI intact bilaterally and moves all extremities Skin Skin: no rashes or lesions noted Extremities Pulses: Normal: Right Femoral Pulse, Left Femoral Pulse, Right Dorsalis Pedis Pulse, Left Dorsalis Pedis Pulse, Right Posterior Tibial Pulse, Left Posterior Tibial Pulse, Right Radial Pulse, Left Radial Pulse Lower Extremity Edema: None: Bilateral Psych Psychological: normal affect Assessment AND Plan 1. Hypertension I10 Plan 1. Hypertension: Patient's blood pressure is optimized as of this visit. His major issues are pulmonary related, and I defer to Dr. Bob to assist him with this. His blood pressure is optimized on this visit. He will continue baby aspirin, Lasix, and losartan/hydrochlorothiazide. No indication for any additional testing at this 2. Hyperlipidemia E78.5 Plan 2. Hyperlipidemia: His LDL and HDL cholesterol are fairly well-controlled. He is unable to tolerate statins. Continue Krill oil therapy. 3. Return office in 6 months. This note was generated using a voice recognition system and there may be incorrect words, spelling or punctuation that were not noted when reviewing the office note prior to saving. Plan Detail Follow Up +6M (Mo) Coding Level of Care Code Off vis,est,level 3 Diagnoses Hypertension I10 Hyperlipidemia E78.5 Coding Level of Care Code Off vis,est,level 3 Diagnoses Hypertension I10 Hyperlipidemia E78.5 05/12/18 1528 <Electronically signed by Ubaldo Hassan MD> Date Ubaldo Hassan MD Cosigner Signature: Date (if applicable) CC: PULMONARY VISIT REPORT Observed: 04/29/2018 Status: F Source: [place] 2:08 PM [facility] Pulmonary Medicine [address] [place] [address] OFFICE VISIT Date of Service: 04/29/18 MR#: [id number] Acct: [id number] Name: APARNA CARRERA Rep #: [id number] : 1945 Provider: Stewart Bob MD Age/Sex: 72/M Location: [facility] Status: Signed Assessment AND Plan Problems 1. Bronchiectasis without complication J47.9 2. Obesity (BMI 30-39.9) E66.9 3. SYEDA (obstructive sleep apnea) G47.33 Plan Unclear etiology at this time. Patient does have findings on pulmonary function test consistent with chronic bronchitis, which may be secondary to previous smoking history. Another possible concern is that of bronchiectasis. Patient is currently not using any pulmonary toileting techniques and this may be leading to more frequent exacerbations. Patient has reported significant worsening over the last 7 months, but pulmonary function test actually shows improvement in lung volumes. This may be secondary to a diastolic dysfunction and patient was encouraged to decrease salt intake and limit fast food. Will obtain a CT scan of the chest with high-resolution cuts for evaluation of bronchiectasis. If present, Acapella would be appropriate. Reinitiate combination inhaler. Reinitiate combination inhaler. Obtain CT scan of the chest. Acapella if bronchiectasis present. Orders Orders: Medications New: fluticasone-salmeterol 113-14 mcg/actuation (AirDuo RespiCl1 puff Inhalation Q12H J45.909 ick) HPI 3 M FU: Chief Complaint: Review of test results Details: Patient is a 72-year-old male, currently in the care of Dr. Tilley, who presents for evaluation secondary to recent test results. Since last visit, patient denies any hospitalizations or prednisone burst. Patient does state that he presented to the emergency room secondary to extensive swelling of the left leg. Patient states that he was told that he did not have a DVT and was sent home. Patient reported that leg was swollen, erythematous, but did not have any pain or exudate noted. Patient reports that he has discontinued his Advair therapy since our last visit. Patient has noted some increase in shortness of breath and cough. Patient denies any complications with therapy limiting compliance such as thrush, hoarseness or sore throat. Patient does report dietary indiscretions and states that he drinks significant some amount of water on a daily basis to clean the kidneys. Patient also admits to eating fast food several times per week, but does not feel that this has significantly changed over the last 6-12 months. Patient denies any chest pain with exertion. Patient does report a cough productive of clear to barraza phlegm on a daily basis. Patient has noted some problems with seasonal allergies as demonstrated by watery eyes and sinus congestion. Patient believes his cough is slightly worsened with lying flat. Patient does report fatigue during the day, but is unaware if he snores at night. Testing personally reviewed with the patient Complete PFT (04/21/2018): Moderately severe mixed ventilatory defect with preserved diffusion capacity consistent with chronic bronchitis (FVC 60%, FEV1 56%, TLC 84%, RV 108%, DLCO 82%) Walking oximetry (02/05/2018): Ambulated 531 feet over the course of 6 minutes with an oxygen wilbur of 91%. 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 Required: No Accompanied by: Self Is patient in pain?: No Allergies Penicillins Allergy (Severe, Verified 04/29/18 12:48) Anaphylaxis perfume Allergy (Intermediate, Verified 04/29/18 12:48) Other-triggers asthma attack perflutren [From Definity] Allergy (Verified 04/29/18 12:48) Unknown vancomycin Adverse Reaction (Intermediate, Verified 04/29/18 12:48) Other-htn atorvastatin [From Lipitor] Adverse Reaction (Mild, Verified 04/29/18 12:48) Other-myalgias dobutamine Adverse Reaction (Mild, Verified 04/29/18 12:48) Other-muscle spasm fluticasone [From Flonase] Adverse Reaction (Mild, Verified 04/29/18 12:48) Other-nosebleed rosuvastatin [From Crestor] Adverse Reaction (Mild, Verified 04/29/18 12:48) Other-myalgias simvastatin [From Zocor] Adverse Reaction (Mild, Verified 04/29/18 12:48) Other-myalgias eggs Adverse Reaction (Mild, Uncoded 04/29/18 12:48) Other-water blisters Medications Cyanocobalamin (Vitamin B-12) [B-12] 1,000 mcg PO DAILY 09/27/16 [History Confirmed 01/22/18] Garlic 400 mg PO DAILY 09/27/16 [History Confirmed 01/22/18] Krill Oil/Davey-3/Dha/Epa [Davey-3 Krill Oil Softgel] 1 ea PO DAILY 09/27/16 [History Confirmed 01/22/18] aspirin 81 mg tablet,delayed release 81 mg PO DAILY #90 tab 10/28/17 [Rx Confirmed 01/22/18] furosemide 40 mg tablet 40 mg PO QDAY 11/01/17 [History Confirmed 01/22/18] cholecalciferol (vitamin D3) 2,000 unit capsule 4,000 unit PO DAILY cap 01/22/18 [History Confirmed 01/22/18] ibuprofen 200 mg capsule 400 mg PO TID-QID PRN cap 01/22/18 [History Confirmed 01/22/18] levothyroxine 150 mcg tablet 150 mcg PO .COMPLEX 01/22/18 [History Confirmed 01/22/18] levothyroxine 175 mcg tablet 175 mcg PO .COMPLEX 01/22/18 [History Confirmed 01/22/18] losartan 50 mg-hydrochlorothiazide 12.5 mg tablet 1 tab PO QDAY 01/22/18 [History Confirmed 01/22/18] magnesium oxide 400 mg capsule 400 mg PO QDAY cap 01/22/18 [History Confirmed 01/22/18] hlktltxq-tqw-pqfey acid 0.4 mg-lycopene 300 mcg-lutein 250 mcg tablet 1 tab PO QDAY 01/22/18 [History Confirmed 01/22/18] polyethylene glycol 3350 17 gram/dose oral powder 17 g PO QDAY g 01/22/18 [History Confirmed 01/22/18] turmeric root extract 500 mg capsule 500 mg PO QDAY 01/22/18 [History Confirmed 01/22/18] fluticasone 113 mcg-salmeterol 14 mcg/actuation breath activated powdr 1 puff INHALATION Q12H #1 ea 04/29/18 [Rx Confirmed 04/29/18] [facility] Medical History Pneumonia (Acute) Emphysema lung (Chronic) Bronchitis (Acute) Bronchiectasis (Chronic) Asthma (Chronic) Obesity (BMI 30-39.9) (Chronic) Nicotine dependence in remission (Chronic) Neuropathy (Chronic) GERD (gastroesophageal reflux disease) (Chronic) Hypothyroidism (Chronic) Obstructive sleep apnea (Chronic) Hyperlipidemia (Chronic) Hypertension (Chronic) Dyspnea (Acute) Groin mass (Acute) Asbestos exposure (Chronic) Cyst of right kidney (Chronic) Lung nodule (Chronic) Thyroid disease (Chronic) Torn cartilage (Resolved) chipped bones (Resolved) Surgical History History of repair of rotator cuff (Resolved) hernia repair (Resolved) History of right and left heart catheterization (Chronic 09/28/16) S/P trigger finger release (Resolved) finger surgery (Resolved) pin placement (Resolved) Family History Father CAD (coronary artery disease) Social History Smoking Status: Former smoker how long ago did patient quit smokin, 4p/d second hand exposure: Yes alcohol intake: current alcohol intake frequency: holidays/special occasions only Review of Systems Const CONSTITUTIONAL: Positive fatigue; negative anorexia, body ache, chills, daytime sleepiness, fever(s), night sweats, oral thrush, stops breathing during sleep, weight loss, sleeping in chair, weight loss, weight gain, frequent colds, seasonal allergies, other, headache(s) or orthopnea EETM Ear Nose Throat Mouth: Positive hard of hearing and nasal discharge; negative hearing normal, hoarseness, dry mouth in morning, change in vision, itchy eyes, eye pain, swallowing Difficulty, ear pain, nose bleed, headache(s), mouth pain, nasal congestion, post nasal drip, sinus pain, sinus pressure, sore throat or other Cardio Cardiovascular: Positive edema Location: lower extremity Right/Left: Left; negative chest pain, chest pain at rest, chest pain with activity, irregular heart rhythm, shortness of breath when lying down, palpitations, murmur or other Resp Respiratory: Positive as per HPI, shortness of breath shortness of breath: Positive with activity and other (rest), wheezing and cough cough: Positive productive color: Positive brown and clear; negative pain with cough, chest congestion, chest tightness, pain on inspiration, inhalers, increase use of rescue inhalers, snoring, apnea or other Gastro Gastrointestional: Negative bloody stools, change in appetite, difficulty swallowing, reflux, hematemesis, melena stool, loose stool, constipation or other Genitourinary: Negative blood in urine, nocturia, pain with urination or other Musc Musculoskeletal: Negative body pain, back pain, neck pain or other Skin/Breast Skin/Breast: Negative dry skin, itching, rash, unusual bruising, breast lump or other Neuro Neurological: Negative restless legs, confusion, weakness or other Psych Psychocological: Negative abnormal sleep pattern, anxiety, thoughts of hurting self/others, hopelessness or other Lymph Lymphatic: Negative easy bleeding, easy bruising, swollen lymph nodes or other Exam Const Constitutional: Positive conversant, cooperative, in no acute respiratory distress, healthy appearing, well developed, well nourished, good hygiene and obese; negative wearing supplemental oxygen Head Head: Positive normocephalic and atraumatic; negative cyanosis of lips/distal nose, microcephalic or macrocephalic Eyes Eye: Positive clear conjunctiva; negative nystagmus or scleral abnormality Ears Ear: Positive hard of hearing and external ears normal; negative hearing normal Nose Nose: Positive external nose normal, septum normal and no nasal discharge; negative epistaxis or nasal polyp Mouth Mouth: Positive oral mucosae normal, no lesions, crowded posterior oropharynx and dentures; negative post nasal drip, malodorous breath or oral thrush present Mallampati Score: III: Mallampati Score Neck Neck: Positive normal visual inspection, thick neck, full ROM, trachea midline and male neck greater than 43 cm (17 in); negative lymphadenopathy or JVD Chest Wall Chest: Positive normal inspection of the chest; negative increased A/P diameter, symmetric chest movement, crepitus or tenderness Resp lung sounds: Positive clear to auscultation, good air exchange, wheeze present on forced exhalation and prolonged expiratory time; negative wheezes, rhonchi, rales or use of accessory muscles Cardio Cardiac: Positive regular rate, regular rhythm, S1 normal and S2 normal; negative murmur, rub or gallop GI GI: Positive obese, normal to inspection and normal bowel sounds; negative distended or ascites Genitourinary: Positive deferred Musc Musculoskeletal: Positive steady gait and ROM normal; negative using an assistive device for ambulation, kyphosis or scoliosis Skin Pulmonary Skin Exam: Positive intact; negative rash, lesion, ulcers, erythema or dermal atrophy Pulses Pulse: Yes radial pulses present Extremities Extremities: Yes capillary refill normal, No clubbing, No cyanosis, Yes edema (2+ bilateral lower extremity) Location: lower extremity Neuro Neurologic: Yes conversant, Yes no focal neuro deficits, Yes normal concentration, Yes understands questions, Yes cooperative, Yes normal cognition, Yes normal coordination Lymph Lymphatic: No lymphadenopathy Psych Appearance: Positive grossly normal Mental Status: Positive mental status grossly normal Mood: Positive congruent mood Affect: Positive normal affect Coding Level of Care Code Off vis,est,level 4 Diagnoses Bronchiectasis without complication J47.9 Bronchiectasis type: uncomplicated Obesity (BMI 30-39.9) E66.9 SYEDA (obstructive sleep apnea) G47.33 04/29/18 1408 <Electronically signed by Stewart Bob MD> Date Stewart Bob MD Cosign Signature: Date (if applicable) CC: Edenilson Tilley MD PULMONARY FUNCTION Observed: 04/21/2018 Status: F Source: [place] REPORT COMP 4:04 PM [facility] Pulmonary Services/Neurology [address] [place] [address] MR#: [id number] Acct: [id number] Name: APARNA CARRERA Rep #: [id number] : 1945 72 From: Stewart Bob MD Referring Dr: Stewart Bob MD Status: REG CLI Ordering Dr: Date: Location: [facility] Sex: M C COMPLETE PULMONARY FUNCTION TEST INTERPRETATION Brief HPI: Patient is a 72 year old male, currently under the care of myself, who presents to [facility] for complete pulmonary function tests secondary to diagnosis of COPD. Respiratory therapist reports good effort and reproducible results. Interpretation: Forced expiration spirometry shows a moderately-severe large airways obstructive ventilatory defect with an FEV1 of 54% predicted. There is no significant bronchodilator response by ATS criteria. Spirograms are of good quality and plateau slowly, indicating slowly emptying areas of the lungs. The respiratory flow volume loop shows decreased expiratory flow rates at all lung volumes consistent with airway obstruction. Lung volumes by body plethysmography show a mildly decreased total lung capacity at 5.45 L, 84% predicted. FRC and RV are elevated out of proportion. Lung volume measurements are consistent with air-trapping, but this does not reach clinical significance by strict ATS criteria. Diffusion capacity by carbon monoxide is normal at 82% predicted. The airway resistance is elevated. No previous pulmonary function tests were available for review. Impression: Moderately severe mixed ventilatory defect with preserved diffusion capacity consistent with the diagnosis of chronic bronchitis. Secondary restrictive process, such as body habitus, cannot be excluded. 04/21/18 1604 <Electronically signed by Stewart Bob MD> Date Stewart Bob MD CC: Stewart Bob MD; Edenilson Tilley MD Date Dictated: 04/21/18 1601 Date Transcribed: 04/21/18 160 Clinical Training Specialist: HERNANDEZ Signed VENOUS DUPLEX LOWER Observed: 02/25/2018 Status: F Source: [place] EXT[place] 6:49 PM [facility] [place] [facility] Cardiovascular Services [address] [place] [address] Venous Duplex US, Unilateral 02/16/18 1318 MR#: [id number] Acct: [id number] Name: APARNA CARRERA Rep #: [id number] : 1945 72 From: Fabiano Gaspar MD Attending Dr: Status: DEP ER Ordering Dr: Edis Leiva MD Date: 02/16/18 Location: ED Sex: M C Admitted: Reason For Study: swelling Procedure LEFT Exam performed portable in ED. GSV is normal. The exam was diagnostic. CFV is compressible, spontaneous, phasic, A preliminary report was called and/or faxed competent, and demonstrates normal to Dr. Leiva. augmentation. FV is compressible, spontaneous, phasic, competent and demonstrates normal augmentation. POP V is compressible, spontaneous, phasic, competent and demonstrates normal augmentation. T/P Trunk is compressible. PTV is compressible. LT PerV is compressible. Interpretation Summary There is no evidence of left lower extremity deep vein thrombosis. Left greater saphenous vein appears patent and compressible segmentally. Interpretation delayed because of [facility] issues Ordering Physician: Edis Leiva Referring Physician: Stewart Bob Performed By: Fermin Cortez, RVT 02/25/18 1848 Date Fabiano Gaspar MD CC: Edenilson Tilley MD; Edis Leiva MD Date Dictated: 02/16/18 1318 Date Transcribed: 02/25/18 184 Clinical Training Specialist: Signed COMP METABOLIC PANEL Collected: 02/25/2018 Status: F Source: [place] 2:55 PM [facility] RE[facility] TYPE CODE TESTS RESULT OUT OF REFERENCE UNITS RANGE LAB TP 6.3-8.0 g/dL Test sent to [facility]. Result Comment: Account Credited LAB ALB 3.9-4.9 g/dL Test Albumin sent to [facility]. Result Comment: Account Credited LAB CA 8.5-10.2 mg/dL Test Calcium, Total sent to [facility]. Result Comment: Account Credited LAB TBIL 0.2-1.3 mg/dL Bilirubin, Test Total sent to [facility]. Result Comment: Account Credited LAB ALKP 36-108 U/L Alkaline Test Phosphatase sent to [facility]. Result Comment: Account Credited LAB AST 14-40 U/L Test sent AST to [facility]. Result Comment: Account Credited LAB GLU 74-99 mg/dL Test sent Glucose to [facility]. Result Comment: Account Credited LAB BUN 9-24 mg/dL Test sent BUN to [facility]. Result Comment: Account Credited LAB CRET 0.73-1.22 mg/dL Creatinine Test sent to [facility]. Result Comment: Account Credited LAB NA 136-144 mmol/L Test Sodium sent to [facility]. Result Comment: Account Credited LAB K 3.7-5.1 mmol/L Test Potassium sent to [facility]. Result Comment: Account Credited LAB CL 97-105 mmol/L Test Chloride sent to [facility]. Result Comment: Account Credited LAB CO2 22-30 mmol/L Test sent CO2 to [facility]. Result Comment: Account Credited LAB AGAP 9-18 mmol/L Test sent Anion Gap to [facility]. Result Comment: Account Credited LAB ALT 10-54 U/L Test sent ALT to [facility]. Result Comment: Account Credited LAB GFRAA eGFR- Amer. Test sent to [facility]. Result Comment: Account Credited LAB GFRNAA . eGFR-All Test sent Other Races to [facility]. Result Comment: Account Credited LAB GFRPED eGFR-Ped. Test sent Factor to [facility]. Result Comment: Account Credited TSH Collected: 02/25/2018 Status: F Source: [place] 2:55 PM [facility] REPOSITORY TYPE CODE TESTS RESULT OUT OF REFERENCE UNITS RANGE LAB TSH 0.400-5.500 uU/mL Test TSH sent to [facility]. Result Comment: Account Credited CNOV Observed: 02/25/2018 Status: COMPLETED Source: [place] 2:20 PM [facility] REPOSITORY Office Visit (FAMPWS) APARNA CARRERA ([id number]) 1945 M Date Time Provider Department 02/25/18 2:20 PM SHARMILA THAKUR [facility] During your visit today, we recorded the following information about you: Temperature Pulse Respiration Blood pressure 97.8 degrees 84/minute 20/minute 134/78 Weight 129.7 kg Sharmila Thakur APRN.CNP 02/25/2018 3:00 PM Addendum Chief Complaint Patient presents with: Edema HPI Aparna Carrera is a 72 year old male who presents here today for Above Complaints. Patient presents to the office for complaints of leg edema. Location is the left leg/foot. Has been present for one week. No calf pain. States that he went to [facility] ER on Saturday. States that they did an ultrasound on it and nothing was found. There is no records of this encounter, as the computer system is down at [employer] due to hackers. At this time, he states that the left foot swelling has decreased. It has improved slightly. Also notes some swelling in the right foot. No chest pain. Does have some shortness of breath, but comments that it is unchanged really from his baseline COPD. States that his COPD inhalers are stopped by Dr. Bob due to trying to get a baseline for his breathing. Follows with Dr. Stewart Bob for COPD. Also follows with Dr. Hassan for cardiology. Patient is a poor historian and cannot tell me why he sees Dr. Hassan or what his diagnosis is. Did have a normal echocardiogram in 2016. Also had a normal heart catherization in 2017. Past medical history, appointments, medications, allergies reviewed. Previous Medical History PAST MEDICAL HISTORY Diagnosis Date - Asbestosis(501) - Asthma - Bronchitis - COPD (chronic obstructive pulmonary disease) (HCC) - Emphysema - SYEDA (obstructive sleep apnea) - Thyroid disorder Previous Surgical History PAST SURGICAL HISTORY Procedure Laterality Date - COLONOSCOP W/ OR W/O [facility] SPEC 04/07/2013 Colonoscopy - COLONOSCOPY 02/2005 [facility] [place] - HERNIA REPAIR HX 1973 lower right side - PAST SURGICAL HISTORY OF 2010 Growth removed from left nose and sikhism - PAST SURGICAL HISTORY OF 2010 Scope down nose - PAST SURGICAL HISTORY OF 2010. Barium swallow - PAST SURGICAL HISTORY OF 2011 Electrocardiogram, and Echo - PAST SURGICAL HISTORY OF 2011. Mammogram of left breast and ultrasound - PAST SURGICAL HISTORY OF 04/2012. Doppler of lower extremities Family History FAMILY HISTORY Problem Relation Age of Onset - Heart Father - Prostate Cancer Father - None Mother at 96 Patient Allergies ALLERGIES Allergen Reactions - Crestor [Rosuvastat* Other: See Comments Muscle cramps - Dobutamine Other: See Comments Severe muscle cramps - Eggs [Egg] Other: See Comments Water Blisters - Flonase [Fluticason* Other: See Comments Nose bleed - Lipitor [Atorvastat* Other: See Comments Muscle spasms - Penicillins Swelling - Perfumes Swelling Throat swelling - Vancomycin Other: See Comments Elevated B/P - Zocor [Simvastatin] Other: See Comments Muscle Spasms Current Medications Current Outpatient Prescriptions on File Prior to Visit: Sbqmsukvguvfr-Cjrrdgrk-Vgtclm (CENTRUM SILVER) Tab Take 1 tablet by mouth once daily. Take one(1) tablet daily. PIRBUTEROL ACETATE (MAXAIR AUTOHALER INHALATION) Inhale as instructed. Two puffs as needed of 14 gm. CALCIUM CARBONATE (TUMS ORAL) Take by mouth. Take 1000 mg of extra strength as needed. metoprolol tartrate, short acting, 25 mg tablet Take 25 mg by mouth twice daily. Take one(1) tablet two(2) times daily. losartan 25 mg tablet Take 25 mg by mouth once daily. Take one(1) tablet daily. ipratroprium-albuterol (DUONEB) 0.5 mg-3 mg(2.5 mg base)/3 mL INHALATION Nebu Inhale 3 mL as instructed every 4 hours while awake. gemfibrozil 600 mg ORAL tablet Take one(1) tablet two(2) times daily. ibuprofen 200 mg ORAL tablet omeprazole (PRILOSEC) 20 mg ORAL capsule One pill one hour before food pirbuterol (MAXAIR AUTOHALER) 200 mcg/Inhalation INHALATION inhaler 2 puffs as needed colesevelam (WELCHOL) 625 mg ORAL tablet Take one(1) tablet three times daily. levothyroxine (SYNTHROID) 25 mcg ORAL tablet Take one(1) tablet daily. No current facility-administered medications on file prior to visit. Social History Social History Marital status: Spouse name: Years of education: Number of children: Social History Main Topics Smoking status: Former Smoker Packs/day: 5.00 Years: 24.00 Types: Cigarettes Quit date: 09/16/1982 Smokeless tobacco: Never Used Alcohol use: Yes Comment: once monthly REVIEW OF SYSTEMS: as above ? Reviewed relevant PMHx, PSHx, Social Hx, current medications and allergies. EXAM: BP 134/78 Pulse 84 Temp 36.6 ?C (97.8 ?F) (Tympanic) Resp 20 Wt 129.7 kg (286 lb) BMI 41.04 kg/m? General Appearance: Well appearing, alert, in no acute distress, well-hydrated, well nourished.. Neck: Supple, no adenopathy; thyroid symmetric, normal size, no bruits. Lungs: Lungs clear to auscultation. No wheezing, rhonchi, rales. Heart: RRR without murmur, gallop, or rubs. No ectopy. Extremities: Edema: Trace to +1 edema bilaterally and evenly extending up the anterior tibia. Health Maintenance List DTAP,TDAP,TD(1 - Tdap) due on 1964 LIPID SCREEN due on 1980 HEPATITIS C SCREENING due on 1989 DIABETES SCREEN due on 1990 ADULT PREVNAR-13 due on 2010 PNEUMOVAX AGE 65 AND OVER WITH 5YR LOOKBACK(1) due on 2010 INFLUENZA(Season Ended) due on 05/17/2018 COLORECTAL CANCER SCREENING,SEE MODIFIER due on 04/07/2023 Data reviewed No recent data available. ASSESSMENT/PLAN: 1. Swelling of lower extremity - ICD9: 729.81, ICD10: M79.89 (primary diagnosis) - Leg swelling is trace to +1 bilaterally, evenly distributed and not just one leg. Patient did state some improvement with elevation. We will get TSH, CMP. - Differentials include cardiac vs venous insufficiency. Had a echo in last 2 years that was normal. Following with Dr. Hasasn for cardiology. Advised patient to schedule follow up with Dr. Hassan. Advised ER if he develops difficult breathing, chest pain. - COMP METABOLIC PANEL - US VENOUS INCOMPETENCY BILL VAS LAB 2. Hypothyroidism, acquired - ICD9: 244.9, ICD10: E03.9 - Instructed patient on importance of taking on an empty stomach either first thing in the morning or at bedtime. - check TSH today - continue current dose of Synthroid as prescribed. - TSH BLD Get labs, will notify. Keep establishing appointment with Dr. Crockett. JASON Mancilla APRN.CNP 02/25/2018 3:00 PM Signed Addended by: SHARMILA THAKUR CNP on: 02/25/2018 03:00 PM Modules accepted: Orders Referring Provider: SELF [[id number]] Allergies As of Date: 02/25/2018 Noted Allergy Reaction CRESTOR (ROSUVASTATIN CALCIUM) 02/25/2018 14 - Other: See Comments Comments: Muscle cramps DOBUTAMINE 02/25/2018 14 - Other: See Comments Comments: Severe muscle cramps EGGS (EGG) 09/29/2010 14 - Other: See Comments Comments: Water Blisters FLONASE (FLUTICASONE) 02/25/2018 14 - Other: See Comments Comments: Nose bleed LIPITOR (ATORVASTATIN CALCIUM) 09/29/2010 14 - Other: See Comments Comments: Muscle spasms PENICILLINS 09/29/2010 7 - Swelling PERFUMES 09/29/2010 7 - Swelling Comments: Throat swelling VANCOMYCIN 09/29/2010 14 - Other: See Comments Comments: Elevated B/P ZOCOR (SIMVASTATIN) 09/29/2010 14 - Other: See Comments Comments: Muscle Spasms Date Reviewed: 02/25/2018 Reviewed by: Sharmila [facility]) Jasen - Fully Assessed Reason for Visit: Edema [39] Primary Visit Diagnosis:Swelling of lower extremity [M79.89] Other Visit Diagnosis:Hypothyroidism, acquired [E03.9] Order(s):levothyroxine (LEVOXYL) 150 mcg tabletTake 1 tablet by mouth once daily. Take on empty stomach Saturday through Saturday.Disp: 30 tabletRfl: levothyroxine (LEVOXYL) 175 mcg tabletTake 1 tablet by mouth once daily. Take on empty stomach. Take on Saturday and Saturday.Disp: 30 tabletRfl: albuterol HFA (PROAIR HFA) 90 mcg/actuation inhalerInhale 2 Puffs as instructed every 4 hours as needed.Disp: Rfl: fluticasone-salmeterol (ADVAIR DISKUS) 250-50 mcg/dose dsdvInhale 1 Puff as instructed twice daily. Rinse and gargle mouth after use with water.Disp: Rfl: furosemide (LASIX) 40 mg tabletTake 1 tablet by mouth once daily.Disp: Rfl: aspirin, enteric coated (ASPIRIN, ENTERIC COATED) 325 mg EC tabletTake 1 tablet by mouth once daily. Take with food.Disp: 30 tabletRfl: 11 TSH BLD [SQTSH] Order #: [id number] FUTURE COMP METABOLIC PANEL [SQCMP] Order #: [id number] FUTURE VENOUS INCOMPETENCY BILL VAS LAB [7541741] Order #: [id number] FUTURE Cholecalciferol, Vitamin D3, 2,000 unit capTake 1 capsule by mouth once daily.Disp: Rfl: cyanocobalamin (VITAMIN B-12) 1,000 mcg tabTake 1 tablet by mouth once daily.Disp: Rfl: polyethylene glycol 3350 (MIRALAX) 17 gram/dose powderTake 17 g by mouth once daily.Disp: 1 BottleRfl: magnesium oxide (MAG-OX) 400 mg tabletTake 1 tablet by mouth once daily.Disp: Rfl: Albuterol Sulfate 0.63 mg/3 mL nebulizer solutionUse 1 Ampule via nebulizer every 6 hours as needed.Disp: Rfl: Prescriptions as of 02/25/2018 Sig: LEVOTHYROXINE 150 MCG TABLET Take 1 tablet by mouth once d* LEVOTHYROXINE 175 MCG TABLET Take 1 tablet by mouth once d* ALBUTEROL SULFATE HFA 90 MCG/* Inhale 2 Puffs as instructed * FLUTICASONE 250 MCG-SALMETERO* Inhale 1 Puff as instructed t* FUROSEMIDE 40 MG TABLET Take 1 tablet by mouth once d* ASPIRIN 325 MG TABLET,DELAYED* Take 1 tablet by mouth once d* * IZTNMRSAHIXV-AVKYLCMG-MJKKOW * Take 1 tablet by mouth once d* * TUMS ORAL Take by mouth. Take 1000 mg * * LOSARTAN 25 MG TABLET Take 25 mg by mouth once jay* * IBUPROFEN 200 MG TABLET CHOLECALCIFEROL (VITAMIN D3) * Take 1 capsule by mouth once * CYANOCOBALAMIN (VIT B-12) 1,0* Take 1 tablet by mouth once d* POLYETHYLENE GLYCOL 3350 17 G* Take 17 g by mouth once daily. MAGNESIUM OXIDE 400 MG TABLET Take 1 tablet by mouth once d* ALBUTEROL SULFATE 0.63 MG/3 M* Use 1 Ampule via nebulizer ev* Problem List As Of Date 02/25/2018 Noted Resolved SYEDA (obstructive sleep apnea) [G47.33] COPD (chronic obstructive pulmonary disease) [J* Thyroid disorder [E07.9] Bronchitis [J40] Asbestosis [J61] Prescriptions ordered this encounter Disp Refills Start End LEVOTHYROXINE 150 MCG TABLET 30 t* 02/25/2018 Class: Med Update Route: ORAL Sig: Take 1 tablet by mouth once daily. Take on empty stomach Saturday through Saturday. LEVOTHYROXINE 175 MCG TABLET 30 t* 02/25/2018 Class: Med Update Route: ORAL Sig: Take 1 tablet by mouth once daily. Take on empty stomach. Take on Saturday and Saturday. ALBUTEROL SULFATE HFA 90 MCG/ACTUATI* 02/25/2018 Class: Med Update Route: INHALATION Sig: Inhale 2 Puffs as instructed every 4 hours as needed. FLUTICASONE 250 MCG-SALMETEROL 50 MC* 02/25/2018 Class: Med Update Route: INHALATION Sig: Inhale 1 Puff as instructed twice daily. Rinse and gargle mouth after use with water. FUROSEMIDE 40 MG TABLET 02/25/2018 Class: Med Update Route: ORAL Sig: Take 1 tablet by mouth once daily. ASPIRIN 325 MG TABLET,DELAYED RELEASE 30 t* 11 02/25/2018 Class: Med Update Route: ORAL Sig: Take 1 tablet by mouth once daily. Take with food. CHOLECALCIFEROL (VITAMIN D3) 2,000 U* 02/25/2018 Class: Med Update Route: ORAL Sig: Take 1 capsule by mouth once daily. CYANOCOBALAMIN (VIT B-12) 1,000 MCG * 02/25/2018 Class: Med Update Route: ORAL Sig: Take 1 tablet by mouth once daily. POLYETHYLENE GLYCOL 3350 17 GRAM/DOS* 1 Alpesh* 02/25/2018 Class: Med Update Route: ORAL Sig: Take 17 g by mouth once daily. MAGNESIUM OXIDE 400 MG TABLET 02/25/2018 Class: Med Update Route: ORAL Sig: Take 1 tablet by mouth once daily. ALBUTEROL SULFATE 0.63 MG/3 ML SOLUT* 02/25/2018 Class: Med Update Route: NEBULIZATION Sig: Use 1 Ampule via nebulizer every 6 hours as needed. Medications Discontinued During This Encounter levothyroxine (SYNTHROID) 25 mcg ORA* 0 09/29/2010 02/25/2018 Class: Med Update Route: ORAL Sig: Take one(1) tablet daily. Disc: Reason for discontinue is not on file. pirbuterol (MAXAIR AUTOHALER) 200 mc* 12 09/29/2010 02/25/2018 Class: Med Update Route: INHALATION Si puffs as needed Disc: Reason for discontinue is not on file. ipratroprium-albuterol (DUONEB) 0.5 * 180 * 0 08/22/2011 02/25/2018 Route: INHALATION Sig: Inhale 3 mL as instructed every 4 hours while awake. Disc: Reason for discontinue is not on file. PIRBUTEROL ACETATE (MAXAIR AUTOHALER* 02/25/2018 Class: Historical Med Route: INHALATION Sig: Inhale as instructed. Two puffs as needed of 14 gm. Disc: Reason for discontinue is not on file. gemfibrozil 600 mg ORAL tablet 0 09/29/2010 02/25/2018 Class: Med Update Route: ORAL Sig: Take one(1) tablet two(2) times daily. Disc: Reason for discontinue is not on file. omeprazole (PRILOSEC) 20 mg ORAL cap* 0 09/29/2010 02/25/2018 Class: Med Update Route: ORAL Sig: One pill one hour before food Disc: Reason for discontinue is not on file. metoprolol tartrate, short acting, 2* 02/25/2018 Class: Historical Med Route: ORAL Sig: Take 25 mg by mouth twice daily. Take one(1) tablet two(2) times daily. Disc: Reason for discontinue is not on file. colesevelam (WELCHOL) 625 mg ORAL ta* 0 09/29/2010 02/25/2018 Class: Med Update Route: ORAL Sig: Take one(1) tablet three times daily. Disc: Reason for discontinue is not on file. Disposition: Return if symptoms worsen or fail to improve. Follow-up and Disposition History Recorded Encounter Status:Closed by SHARMILA THAKUR CNP on 02/25/18 PROGRESS Observed: 02/25/2018 Status: COMPLETED Source: [place] 2:16 PM [facility] REPOSITORY O ID: [id number] Author: Sharmila [place]) Jasen Service: (none) Author Type: Nurse Practitioner Type: Progress Notes Filed: 02/25/2018 3:00 PM Note Text: Chief Complaint Patient presents with: Edema HPI Aparna Carrera is a 72 year old male who presents here today for Above Complaints. Patient presents to the office for complaints of leg edema. Location is the left leg/foot. Has been present for one week. No calf pain. States that he went to [facility] ER on Saturday. States that they did an ultrasound on it and nothing was found. There is no records of this encounter, as the computer system is down at [employer] due to hackers. At this time, he states that the left foot swelling has decreased. It has improved slightly. Also notes some swelling in the right foot. No chest pain. Does have some shortness of breath, but comments that it is unchanged really from his baseline COPD. States that his COPD inhalers are stopped by Dr. Bob due to trying to get a baseline for his breathing. Follows with Dr. Stewart Bob for COPD. Also follows with Dr. Hassan for cardiology. Patient is a poor historian and cannot tell me why he sees Dr. Hassan or what his diagnosis is. Did have a normal echocardiogram in 2016. Also had a normal heart catherization in 2017. Past medical history, appointments, medications, allergies reviewed. Previous Medical History PAST MEDICAL HISTORY Diagnosis Date - Asbestosis(501) - Asthma - Bronchitis - COPD (chronic obstructive pulmonary disease) (HCC) - Emphysema - SYEDA (obstructive sleep apnea) - Thyroid disorder Previous Surgical History PAST SURGICAL HISTORY Procedure Laterality Date - COLONOSCOP W/ OR W/O [facility] SPEC 04/07/2013 Colonoscopy - COLONOSCOPY 02/2005 [facility] [place] - HERNIA REPAIR HX 1973 lower right side - PAST SURGICAL HISTORY OF 2010 Growth removed from left nose and sikhism - PAST SURGICAL HISTORY OF 2010 Scope down nose - PAST SURGICAL HISTORY OF 2010. Barium swallow - PAST SURGICAL HISTORY OF 2011 Electrocardiogram, and Echo - PAST SURGICAL HISTORY OF 2011. Mammogram of left breast and ultrasound - PAST SURGICAL HISTORY OF 04/2012. Doppler of lower extremities Family History FAMILY HISTORY Problem Relation Age of Onset - Heart Father - Prostate Cancer Father - None Mother at 96 Patient Allergies ALLERGIES Allergen Reactions - Crestor [Rosuvastat* Other: See Comments Muscle cramps - Dobutamine Other: See Comments Severe muscle cramps - Eggs [Egg] Other: See Comments Water Blisters - Flonase [Fluticason* Other: See Comments Nose bleed - Lipitor [Atorvastat* Other: See Comments Muscle spasms - Penicillins Swelling - Perfumes Swelling Throat swelling - Vancomycin Other: See Comments Elevated B/P - Zocor [Simvastatin] Other: See Comments Muscle Spasms Current Medications Current Outpatient Prescriptions on File Prior to Visit: Rgezljofurcwl-Jckbatjn-Znoaht (CENTRUM SILVER) Tab Take 1 tablet by mouth once daily. Take one(1) tablet daily. PIRBUTEROL ACETATE (MAXAIR AUTOHALER INHALATION) Inhale as instructed. Two puffs as needed of 14 gm. CALCIUM CARBONATE (TUMS ORAL) Take by mouth. Take 1000 mg of extra strength as needed. metoprolol tartrate, short acting, 25 mg tablet Take 25 mg by mouth twice daily. Take one(1) tablet two(2) times daily. losartan 25 mg tablet Take 25 mg by mouth once daily. Take one(1) tablet daily. ipratroprium-albuterol (DUONEB) 0.5 mg-3 mg(2.5 mg base)/3 mL INHALATION Nebu Inhale 3 mL as instructed every 4 hours while awake. gemfibrozil 600 mg ORAL tablet Take one(1) tablet two(2) times daily. ibuprofen 200 mg ORAL tablet omeprazole (PRILOSEC) 20 mg ORAL capsule One pill one hour before food pirbuterol (MAXAIR AUTOHALER) 200 mcg/Inhalation INHALATION inhaler 2 puffs as needed colesevelam (WELCHOL) 625 mg ORAL tablet Take one(1) tablet three times daily. levothyroxine (SYNTHROID) 25 mcg ORAL tablet Take one(1) tablet daily. No current facility-administered medications on file prior to visit. Social History Social History Marital status: Spouse name: Years of education: Number of children: Social History Main Topics Smoking status: Former Smoker Packs/day: 5.00 Years: 24.00 Types: Cigarettes Quit date: 09/16/1982 Smokeless tobacco: Never Used Alcohol use: Yes Comment: once monthly REVIEW OF SYSTEMS: as above ? Reviewed relevant PMHx, PSHx, Social Hx, current medications and allergies. EXAM: BP 134/78 Pulse 84 Temp 36.6 ?C (97.8 ?F) (Tympanic) Resp 20 Wt 129.7 kg (286 lb) BMI 41.04 kg/m? General Appearance: Well appearing, alert, in no acute distress, well-hydrated, well nourished.. Neck: Supple, no adenopathy; thyroid symmetric, normal size, no bruits. Lungs: Lungs clear to auscultation. No wheezing, rhonchi, rales. Heart: RRR without murmur, gallop, or rubs. No ectopy. Extremities: Edema: Trace to +1 edema bilaterally and evenly extending up the anterior tibia. Health Maintenance List DTAP,TDAP,TD(1 - Tdap) due on 1964 LIPID SCREEN due on 1980 HEPATITIS C SCREENING due on 1989 DIABETES SCREEN due on 1990 ADULT PREVNAR-13 due on 2010 PNEUMOVAX AGE 65 AND OVER WITH 5YR LOOKBACK(1) due on 2010 INFLUENZA(Season Ended) due on 05/17/2018 COLORECTAL CANCER SCREENING,SEE MODIFIER due on 04/07/2023 Data reviewed No recent data available. ASSESSMENT/PLAN: 1. Swelling of lower extremity - ICD9: 729.81, ICD10: M79.89 (primary diagnosis) - Leg swelling is trace to +1 bilaterally, evenly distributed and not just one leg. Patient did state some improvement with elevation. We will get TSH, CMP. - Differentials include cardiac vs venous insufficiency. Had a echo in last 2 years that was normal. Following with Dr. Hassan for cardiology. Advised patient to schedule follow up with Dr. Hassan. Advised ER if he develops difficult breathing, chest pain. - COMP METABOLIC PANEL - US VENOUS INCOMPETENCY BILL VAS LAB 2. Hypothyroidism, acquired - ICD9: 244.9, ICD10: E03.9 - Instructed patient on importance of taking on an empty stomach either first thing in the morning or at bedtime. - check TSH today - continue current dose of Synthroid as prescribed. - TSH BLD Get labs, will notify. Keep establishing appointment with Dr. Crockett. Sharmila Thakur APRN.IGNITER CAPPER COMPREHENSIVE METABOLIC Collected: 02/25/2018 Status: F Source: [place] PROFIL 12:00 AM [facility] [place] TYPE CODE TESTS RESULT OUT OF RANGE REFERENCE UNITS LAB L501.0100 74-106 mg/dL High GLU 117 Result Comment: Fasting Glucose result from 100 to 125 mg/dL suggests IMPAIRED HOMEOSTASIS per A.D.A. criteria. Please note revised GLUCOSE reference range effective 2017. LAB L501.1000 7-18 mg/dL Normal BUN 18 LAB L501.1100 0.70-1.30 mg/dL Normal CREAT,SERUM 0.95 Result Comment: The validity of the calculated GFR AND GFRAA in patients over 70 years has not been determined. Clinical correlation is essential. LAB L501.1110 >60 mL/min Normal EST GFR 83 Result Comment: Non- GFR Calc LAB L501.1115 >60 mL/min Normal EST GFR - AA 100 Result Comment: GFR Calc LAB L501.1300 10-20 RATIO Normal BUN/CRE 18.9 LAB L501.1500 6.4-8.2 g/dL T Normal PROT 7.7 LAB L501.1800 3.2-5.0 g/dL Normal ALB 3.7 LAB L501.1950 2.2-4.2 g/dL Normal GLOB 4.0 LAB L501.2000 0.9-2.4 RATIO Normal A/G 0.9 LAB L501.2200 8.5-10.1 mg/dL CA Normal 9.0 LAB L501.4100 15-37 U/L Normal AST 27 Result Comment: Slight Hemolysis, Result may be falsely increased. LAB L501.4305 45-117 U/L Normal ALK P 86 LAB L501.4405 16-61 U/L Normal ALT 42 LAB L501.4600 0.20-1.00 mg/dL Normal T BILI 0.50 LAB L501.5300 136-145 mmol/L Normal NA 141 LAB L501.5600 3.5-5.1 mmol/L Normal K 4.3 Result Comment: Slight Hemolysis, Result may be falsely increased. LAB L501.5900 98-107 mmol/L Normal CL 104 LAB L501.6100 21.0-32.0 mmol/L Normal CO2 27.0 LAB L501.6200 5-15 Normal GAP 10 Performed By: #### L500.4050, L501.9520 #### [facility] [address] [place], [address] THYROID STIM HORMONE Collected: 02/25/2018 Status: F Source: [place] (TSH) 12:00 AM [facility] [place] TYPE CODE TESTS RESULT OUT OF RANGE REFERENCE UNITS LAB L501.9520 0.358-3.74 uIU/mL Normal TSH 1.45 Performed By: #### L500.4050, L501.9520 #### [facility] [address] [place], [address] EMERGENCY DEPARTMENT Observed: 02/16/2018 Status: F Source: [place] SUMMARY 4:34 PM [facility] [place] [facility] Medical Records Department [address] [place] [id number] Emergency Department Summary 02/16/18 1331 MR#: [id number] Acct: [id number] Name: APARNA CARRERA Rep #: [id number] : 1945 72 From: Edis Leiva MD PCP: Edenilson Tilley MD Status: DEP ER - ER Visit Summary Date of Service: 02/16/18 Chief Complaint: Left leg swelling History of Present Illness: The patient is a [address] Bob and Dr. Tilley. He reports he is swelling of his left leg that began 2 days ago. He denies any pain, but reports his peripheral neuropathy would prevent him from feeling this. No personal or family history of DVT. No recent travel. No trauma. He denies chest pain. He has chronic shortness of breath that is unchanged. Physical Examination: Vitals: Stable. Afebrile. General: Well-nourished and well-developed. Head: Normocephalic atraumatic. Neck: Supple, no lymphadenopathy. No JVD. Nontender. Cardiovascular: Regular rate and rhythm. No murmurs. Respiratory: No respiratory distress. Clear to auscultation bilaterally. Abdominal: Soft, nontender, nondistended, normal bowel sounds. No guarding, rebound, or peritoneal signs. Back: Nontender. Extremities: Nontender, 1+ pitting edema left lower extremity. 2+ dorsalis pedis pulse bilaterally. Skin: Normal color, no rash. Neurologic: Alert and oriented 3. Cranial nerves II through XII are intact. Normal strength and sensation. Psych: Normal affect. Test Results: Left lower extremity Doppler was negative. Emergency Department Course and Treatment: Patient is resting comfortably and refused pain medications. Treatment Plan: Patient will be discharged instructions to follow-up with his primary care physician in 3-5 days if not improving. Return to the emergency department for any worsening symptoms. Disposition: To home in improved and stable condition. Impression: 1. Left leg swelling. This note was generated with [employer] dictation software. It may contain incorrect words, spelling, and punctuation that were not noted in review of the chart prior to signing ED Disposition - Plan for ED Patient: Chief Complaint: Lower Extremity Injury Instructions: ED Leg Swelling Unilateral Referrals: Edenilson Tilley MD [Primary Care Provider] - 3-5 Days if not improving What to do if you have Problems For any increased pain, shortness of breath, bleeding, nausea or vomiting, chest pain, or any unexpected problems, contact your Primary Care Provider. Call [facility] ([phone]) or report to the closest Emergency Room. Call 911 if necessary. 02/16/18 5580 <Electronically signed by Edis Leiva MD> Date Edis Leiva MD Cosigner Signature (If Indicated): Date CC: Edenilson Tilley MD 6 MINUTE WALK TEST Observed: 02/05/2018 Status: F Source: [place] 11:34 AM [facility] [place] [facility] Pulmonary Services/Neurology [address] [place] [address] MR#: [id number] Acct: [id number] Name: APARNA CARRERA Rep #: [id number] : 1945 72 From: Codey Cancino DO Referring Dr: Stewart Bob MD Date: Ordering Dr: Sex: M C Location: PSN PSN 6 Minute Walk Test - 6 Minute Walk Test 6 Minute Walk Test: 6 Minute Walk Test PSN:6-Minute Walk Test Start: 02/05/18 09:11 Freq: Status: Active Protocol: [id number].6MINW Document 02/05/18 09:00 HG (Rec: 02/05/18 09:15 HG [id number]) 6 Minute Walk Test Date Performed 02/05/18 Time Performed 09:00 Height 5 ft 10 in Weight: 283 lb Weight in Pounds 283.[address]: Stewart Bob Assistive device used: None Pre-test Oxygen Delivery Method Room Air Pulse Ox (%) 95 Pulse Rate (60-100 beats/min) 86 Dyspnea Richard Scale (0-10) 4 Exertion Richard Scale (6-20) 14 1st minute Oxygen Delivery Method Room Air Pulse Ox (%) 93 Pulse Rate (60-100 beats/min) 95 2nd minute Oxygen Delivery Method Room Air Pulse Ox (%) 91 Pulse Rate (60-100 beats/min) 102 H 3rd minute Oxygen Delivery Method Room Air Pulse Ox (%) 91 Pulse Rate (60-100 beats/min) 98 Number of Rests Taken 1 Reported Symptoms Increased Work of Breathing 4th minute Oxygen Delivery Method Room Air Pulse Ox (%) 93 Pulse Rate (60-100 beats/min) 95 Number of Rests Taken 1 Reported Symptoms Increased Work of Breathing 5th minute Oxygen Delivery Method Room Air Pulse Ox (%) 95 Pulse Rate (60-100 beats/min) 85 6th minute Oxygen Delivery Method Room Air Pulse Ox (%) 94 Pulse Rate (60-100 beats/min) 93 Post-test Oxygen Delivery Method Room Air Pulse Ox (%) 95 Pulse Rate (60-100 beats/min) 90 Dyspnea Richard Scale (0-10) 5 Exertion Richard Scale (6-20) 16 Full Laps Walked 9 Partial Lap, Number of Tiles Walked 0 Total Distance Walked (ft) 531 - Interpretation Interpretation: The patient ambulated 531 feet over the course of 6 minutes beginning on room air without assistive devices or breaks. Pretesting oxygen saturation was noted to be 95% on room air. With ambulation, the wilbur oxygen saturation was 91%. There is evidence of both impaired walk distance and significant exertional oxygen desaturation. - Recommendations Recommendations: There is no indication for the use of supplemental oxygen at this time. However, close interval follow-up is recommended given the degree of oxygen desaturation noted during this study. 02/05/18 1134 <Electronically signed by Codey Cancino DO> Date Codey Cancino DO CC: Date Dictated: 02/05/18 1132 Date Transcribed: 02/05/18 113 Clinical Training Specialist: Codey Cancino DO Signed PULMONARY VISIT REPORT Observed: 01/22/2018 Status: F Source: [place] 3:59 PM [facility] [place] [facility] Pulmonary Medicine [address] [place] [address] OFFICE VISIT Date of Service: 01/22/18 MR#: [id number] Acct: [id number] Name: APARNA CARRERA Rep #: [id number] : 1945 Provider: Stewart Bob MD Age/Sex: 72/M Location: [facility] Status: Signed Assessment AND Plan 1. Centrilobular emphysema J43.2 Plan Patient appears to be a very complex pulmonary patient by history. Patient is reporting a lung function of approximately 50% and a prolonged smoking history. Clinical suspicion for advanced COPD, but patient is currently being treated with Advair therapy. Unclear if patient would benefit from triple therapy if he truly has asthma and COPD. There is also some mention of bronchiectasis. In order to minimize redundant testing, will obtain baseline complete pulmonary function test and walking oximetry. Will obtain records from patient's previous inventory control assistant prior to requesting further testing. Obtain complete PFT and walking oximetry. No change to medications at this time. 2. Moderate persistent asthma without complication J45.40 Plan Patient is currently on Advair therapy. Patient states he discontinued this approximately 1 week ago and has no wheezing on exam. Patient does state the perfume as a trigger and reports that he has required ICU admission with BiPAP therapy. It is unclear if this is secondary to asthma or COPD leading to ICU admission. Will await records from previous inventory control assistant. Signs and symptoms of exacerbation were reviewed in detail. Sick policy was also reviewed in detail. Patient voiced understanding. Continue current therapy. Call with any signs or symptoms of exacerbation. 3. SYEDA (obstructive sleep apnea) G47.33 Plan Patient reports a history of obstructive sleep apnea in the past with inability to comply secondary to claustrophobia. Will await old records. Patient has mild to moderate apnea, dental appliance may be an option. Patient may also benefit from supplemental oxygen if significant desaturation was noted on ambulation. Patient understands that uncontrolled sleep apnea may lead to more difficulty with controlling concomitant cardiac conditions. Await old records. Plan Detail Other Orders Orders: Other Medications Discontinued: Follow Up [address] Hassan referral: Chief Complaint: Shortness of breath on exertion Details: Patient is a 72-year-old male, referred by Dr. Hassan, who presents for a second opinion as it relates to his lung conditions. Patient reports that he has been cared for by Dr. Rangel in [place] for multiple pulmonary issues in the past. Patient states that over the last 2 years he started to have progressive shortness of breath, typically on exertion. Patient states he has both good and bad days and states that he has been told in the past that his lung function is about 50%. She does report a history of exposure to asbestos to break pads and also sleep apnea, but has not been able to be compliant with noninvasive therapy. Patient also reports a history of asthma, but states that he has not been on any other inhalers other than Advair. Patient states that he discontinued this approximately a week ago so that you could see me at my baseline. Patient denies any complications with cessation of inhaler therapy. Patient has had an extensive workup by cardiology including stress test and history of right and left heart catheterization in September 2016. Patient has noted some lower extremity swelling, but feels that this is at its baseline and not significantly worse. Patient does report some symptoms of neuropathy, but has not had any foot sores or falls related to the decreased sensation. 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 Patient reports he has had pulmonary function test and walking oximetry in September. Patient denies any history of requiring supplemental oxygen. Patient does have an extensive smoking history, but states that he quit in 1980. Patient states that after cessation of tobacco he noted a significant improvement in his migraines. Patient does report he had a polysomnogram approximately 9 years ago and has not been able to tolerate Pap therapy since that time. On review of systems patient is notable for hard of hearing. Documentation reviewed 6 pages of documentation from Dr. Hassan were reviewed prior to the visit. Patient does have a last known ejection fraction of 65% with diastolic dysfunction, aortic sclerosis and an RVSP of 32 mmHg. Patient did have a heart catheterization in September 2016 that did not require intervention. Intake Vital Signs01/22/18 Height 5 ft 10 in 01/22/18 Weight: 131.088 kg Intake Visit Reasons: Dr. Hassan referral Chief Complaint: Routine f/u Accompanied by: Self Allergies Penicillins Allergy (Severe, Verified 01/22/18 08:32) Anaphylaxis perfume Allergy (Intermediate, Verified 01/22/18 08:32) Other-triggers asthma attack perflutren [From Definity] Allergy (Verified 01/22/18 08:05) Unknown vancomycin Adverse Reaction (Intermediate, Verified 01/22/18 08:32) Other-htn atorvastatin [From Lipitor] Adverse Reaction (Mild, Verified 01/22/18 08:32) Other-myalgias dobutamine Adverse Reaction (Mild, Verified 01/22/18 08:32) Other-muscle spasm fluticasone [From Flonase] Adverse Reaction (Mild, Verified 01/22/18 08:32) Other-nosebleed rosuvastatin [From Crestor] Adverse Reaction (Mild, Verified 01/22/18 08:32) Other-myalgias simvastatin [From Zocor] Adverse Reaction (Mild, Verified 01/22/18 08:32) Other-myalgias eggs Adverse Reaction (Mild, Uncoded 01/22/18 08:32) Other-water blisters Medications Albuterol IH (ProAir) [Proair Hfa (SP)Vent Pts] 1 - 2 puff INHALATION Q4H PRN PRN 09/27/16 [History Confirmed 01/22/18] Cyanocobalamin (Vitamin B-12) [B-12] 1,000 mcg PO DAILY 09/27/16 [History Confirmed 01/22/18] Garlic 400 mg PO DAILY 09/27/16 [History Confirmed 01/22/18] Krill Oil/Davey-3/Dha/Epa [Davey-3 Krill Oil Softgel] 1 ea PO DAILY 09/27/16 [History Confirmed 01/22/18] aspirin 81 mg tablet,delayed release 81 mg PO DAILY #90 tab 10/28/17 [Rx Confirmed 01/22/18] furosemide 40 mg tablet 40 mg PO QDAY 11/01/17 [History Confirmed 01/22/18] fluticasone 250 mcg-salmeterol 50 mcg/dose blistr powdr for inhalation 1 inh INHALATION Q12H 11/04/17 [History Confirmed 01/22/18] albuterol sulfate 2.5 mg/3 mL (0.083 %) solution for nebulization 2.5 mg INHALATION .qid ml 01/22/18 [History Confirmed 01/22/18] cholecalciferol (vitamin D3) 2,000 unit capsule 4,000 unit PO DAILY cap 01/22/18 [History Confirmed 01/22/18] ibuprofen 200 mg capsule 400 mg PO TID-QID PRN cap 01/22/18 [History Confirmed 01/22/18] levothyroxine 150 mcg tablet 150 mcg PO .COMPLEX 01/22/18 [History Confirmed 01/22/18] levothyroxine 175 mcg tablet 175 mcg PO .COMPLEX 01/22/18 [History Confirmed 01/22/18] losartan 50 mg-hydrochlorothiazide 12.5 mg tablet 1 tab PO QDAY 01/22/18 [History Confirmed 01/22/18] magnesium oxide 400 mg capsule 400 mg PO QDAY cap 01/22/18 [History Confirmed 01/22/18] armdmcas-onz-mddej acid 0.4 mg-lycopene 300 mcg-lutein 250 mcg tablet 1 tab PO QDAY 01/22/18 [History Confirmed 01/22/18] polyethylene glycol 3350 17 gram/dose oral powder 17 g PO QDAY g 01/22/18 [History Confirmed 01/22/18] turmeric root extract 500 mg capsule 500 mg PO QDAY 01/22/18 [History Confirmed 01/22/18] [facility] Medical History Pneumonia (Acute) Emphysema lung (Chronic) Bronchitis (Acute) Bronchiectasis (Chronic) Asthma (Chronic) Obesity (BMI 30-39.9) (Chronic) Nicotine dependence in remission (Chronic) Neuropathy (Chronic) GERD (gastroesophageal reflux disease) (Chronic) Hypothyroidism (Chronic) Obstructive sleep apnea (Chronic) Hyperlipidemia (Chronic) Hypertension (Chronic) Dyspnea (Acute) Groin mass (Acute) Asbestos exposure (Chronic) Cyst of right kidney (Chronic) Lung nodule (Chronic) Thyroid disease (Chronic) Torn cartilage (Resolved) chipped bones (Resolved) Surgical History History of repair of rotator cuff (Resolved) hernia repair (Resolved) History of right and left heart catheterization (Chronic 09/28/16) S/P trigger finger release (Resolved) finger surgery (Resolved) pin placement (Resolved) Family History Father CAD (coronary artery disease) Social History Smoking Status: Former smoker how long ago did patient quit smokin, 4p/d second hand exposure: Yes alcohol intake: current alcohol intake frequency: holidays/special occasions only Review of Systems Const CONSTITUTIONAL: Positive fatigue; negative anorexia, body ache, chills, daytime sleepiness, fever(s), night sweats, oral thrush, stops breathing during sleep, weight loss, sleeping in chair, weight loss, weight gain, frequent colds, seasonal allergies, other, orthopnea or headache(s) EETM Ear Nose Throat Mouth: Positive hard of hearing and nasal discharge; negative hearing normal, hoarseness, dry mouth in morning, change in vision, itchy eyes, eye pain, swallowing Difficulty, ear pain, nose bleed, headache(s), mouth pain, nasal congestion, post nasal drip, sinus pain, sinus pressure, sore throat or other Cardio Cardiovascular: Negative chest pain, chest pain at rest, chest pain with activity, irregular heart rhythm, edema, shortness of breath when lying down, palpitations, murmur or other Resp Respiratory: Positive as per HPI, shortness of breath shortness of breath: Positive with activity, worsening and other (lifting), wheezing, inhalers and snoring; negative pain with cough, chest congestion, cough, chest tightness, pain on inspiration, increase use of rescue inhalers, apnea or other Gastro Gastrointestional: Positive reflux; negative bloody stools, change in appetite, difficulty swallowing, hematemesis, melena stool, loose stool, constipation or other Genitourinary: Positive nocturia; negative blood in urine, pain with urination or other Musc Musculoskeletal: Negative body pain, back pain, neck pain or other Skin/Breast Skin/Breast: Negative dry skin, itching, rash, unusual bruising, breast lump or other Neuro Neurological: Negative restless legs, confusion, weakness or other Psych Psychocological: Positive abnormal sleep pattern; negative anxiety, thoughts of hurting self/others, hopelessness or other Lymph Lymphatic: Negative easy bleeding, easy bruising, swollen lymph nodes or other Exam Const Constitutional: Positive conversant, cooperative, in no acute respiratory distress, healthy appearing, well developed, well nourished, good hygiene and obese Head Head: Positive normocephalic and atraumatic; negative cyanosis of lips/distal nose, microcephalic or macrocephalic Eyes Eye: Positive clear conjunctiva; negative nystagmus or scleral abnormality Ears Ear: Positive hard of hearing and external ears normal; negative hearing normal Nose Nose: Positive external nose normal, septum normal and no nasal discharge; negative epistaxis or nasal polyp Mouth Mouth: Positive oral mucosae normal, dentures, no lesions and crowded posterior oropharynx; negative post nasal drip or oral thrush present Mallampati Score: III: Mallampati Score Neck Neck: Positive normal visual inspection, thick neck, full ROM, trachea midline and male neck greater than 43 cm (17 in); negative lymphadenopathy or JVD Chest Wall Chest: Positive increased A/P diameter; negative symmetric chest movement, crepitus or tenderness Resp lung sounds: Positive diminished, wheeze present on forced exhalation and prolonged expiratory time; negative wheezes, rhonchi, rales, dullness to percussion or use of accessory muscles Cardio Cardiac: Positive regular rate, regular rhythm, S1 normal and S2 normal; negative murmur, rub or gallop GI GI: Positive obese, normal to inspection and normal bowel sounds; negative distended or ascites Genitourinary: Positive deferred Musc Musculoskeletal: Positive steady gait and ROM normal; negative using an assistive device for ambulation, kyphosis or scoliosis Skin Pulmonary Skin Exam: Positive intact; negative rash, lesion, ulcers, erythema or dermal atrophy Pulses Pulse: Yes radial pulses present Extremities Extremities: Yes capillary refill normal, No clubbing, No cyanosis, Yes edema (2+ lower extremities) Neuro Neurologic: Yes conversant, Yes no focal neuro deficits, Yes normal concentration, Yes understands questions, Yes cooperative, Yes normal cognition, Yes normal coordination Lymph Lymphatic: No lymphadenopathy Psych Appearance: Positive grossly normal Mental Status: Positive mental status grossly normal Mood: Positive congruent mood Affect: Positive normal affect Coding Level of Care Code Off vis,new,level 4 Diagnoses Centrilobular emphysema J43.2 Emphysema type: centrilobular Moderate persistent asthma without complication J45.40 Asthma complication type: uncomplicated Asthma persistence: persistent Asthma severity: moderate SYEDA (obstructive sleep apnea) G47.33 01/22/18 1559 <Electronically signed by Stewart Bob MD> Date Stewart Bob MD Cosigner Signature: Date (if applicable) CC: OUT OF TOWN DOCTOR CARDIOLOGY VISIT Observed: 11/18/2017 Status: F Source: [place] REPORT 10:20 AM [facility] [place] [facility] [address] [place] [address]. [address] [place] [address] OFFICE VISIT Date of Service: 11/04/17 MR#: [id number] Acct: [id number] Name: APARNA CARRERA Rep #: [id number] : 1945 Provider: Ubaldo Hassan MD Age/Sex: 72/M [place] [facility] [place] Signed HPI HPI Chief Complaint: Routine f/u Details: Referring physician: Dr. Edenilson Tilley Mr. Carrera is a very pleasant 72-year-old moderately obese nondiabetic gentleman, with a heavy previous smoking history smoking 3-5 packs per day for 28 years quit about 29 years ago. He has been diagnosed with COPD, obstructive sleep apnea, and apparently has an elevated left jorge-diaphragm as well. He has never been told he had any coronary artery disease. He does have risk factors including his age, hypercholesterolemia, previous smoking, hypertension. The patient was originally referred to our office for increasing dyspnea on exertion, increasing fatigue, decreased energy level, and tiredness. Unfortunately the patient is unable to use his CPAP due to a chronic skin staph infection which causes inflammation of his skin around his mouth. Patient does use his inhalers, and was recently placed on beta maximino therapy about 2 years ago. Ever since beta maximino initiation he has had increasing use of his inhalers, decreased energy, and shortness of breath. Recently his Hyzaar was switched to Cozaar for unknown reasons which may have been an oversight in prescription ordering. His last echocardiogram was in 2011 which showed an EF of 65%, diastolic dysfunction, aortic sclerosis with mild AI, and RVSP of 32 mmHg. Patient denies any exertional angina, chest pain, jaw pain, or left arm pain. He he states he can walk 2 blocks or 2 flights of stairs but would be profoundly dyspneic at the end of that. Patient underwent a dobutamine echocardiogram on 07/2016, which appeared to be negative for inducible ischemia although we have poor echo windows requiring Definity agent. patient underwent left her catheterization on 09/28/16 which showed angiographically normal coronaries LVEF is 75%, normal right-sided pressures, no evidence of mitral stenosis. patient reports he sees a inventory control assistant in the [facility], and underwent full pulmonary function test in January 2016. He does have sleep apnea but is unable to use his CPAP. He denies any narcoleptic tendencies but does have daytime somnolence. Patient wishes to relocate his pulmonary physician to [facility] given the distance of travel And to consolidate his care. We increased his hydrochlorothiazide to 25 mg by mouth daily on our previous to last visit given his lower extremity edema, and due to it appears to be a skin allergy was unable to tolerate ELANA hose or Baldemar bandages. His shortness of breath has remained about the same, and his lower extremity edema is about trace today. Patient's main issue is dyspnea on exertion and shortness of breath which appears to be worsening since our last visit. He is awaiting to see his inventory control assistant in [place] on November 19 of this year. His most recent 6 minute walk test on 11/02/16 showed a desatted to around 93% and did not appear to require O2 requirement at this time. Unless his main issue is dyspnea on exertion. In our office today his blood pressure is 124/72, pulse is 80 and regular. His Physical exam demonstrates severe obesity, very distant breath sounds bilaterally, regular rate and rhythm, normal S1/S2. No murmurs are detected. He has Trace to 1+ bilateral lower extremity edema. EKG previously demonstrates normal sinus rhythm with no evidence of previous myocardial infarction. Lipids as of 07/05/16 show an HDL of 37 and an LDL of 91. Intake Vital Signs11/04/17 Height 5 ft 10 in Intake Visit Reasons: 6 M FU Allergies atorvastatin [From Lipitor] Allergy (Verified 11/04/17 14:22) Unknown perflutren [From Definity] Allergy (Verified 11/04/17 14:22) Unknown rosuvastatin [From Crestor] Allergy (Verified 11/04/17 14:22) Unknown simvastatin [From Zocor] Allergy (Verified 11/04/17 14:22) Unknown vancomycin Allergy (Verified 11/04/17 14:22) Unknown Medications Albuterol IH (ProAir) [Proair Hfa (SP)Vent Pts] 1 - 2 puff INHALATION Q4H PRN PRN 09/27/16 [History Confirmed 11/01/17] Cholecalciferol (Vitamin D3) [D3-2000] 2,000 unit PO DAILY 09/27/16 [History Confirmed 11/01/17] Cyanocobalamin (Vitamin B-12) [B-12] 1,000 mcg PO DAILY 09/27/16 [History Confirmed 11/01/17] Garlic 400 mg PO DAILY 09/27/16 [History Confirmed 11/01/17] Ipratropium/Albuterol Sulfate [Duoneb] 3 ml INHALATION Q6H.RT 09/27/16 [History Confirmed 11/01/17] Krill Oil/Davey-3/Dha/Epa [Davey-3 Krill Oil Softgel] 1 ea PO DAILY 09/27/16 [History Confirmed 11/01/17] Levothyroxine Sodium 150 mcg PO DAILY 09/27/16 [History Confirmed 11/01/17] Multivitamin [Multiple Vitamins] 1 ea PO DAILY 09/27/16 [History Confirmed 11/01/17] aspirin 81 mg tablet,delayed release 81 mg PO DAILY #90 tab 10/28/17 [Rx Confirmed 11/01/17] furosemide 40 mg tablet 40 mg PO QDAY 11/01/17 [History Confirmed 11/01/17] losartan 50 mg tablet 50 mg PO QDAY 11/01/17 [History Confirmed 11/01/17] fluticasone 250 mcg-salmeterol 50 mcg/dose blistr powdr for inhalation 1 inh INHALATION Q12H 11/04/17 [History Confirmed 11/04/17] [facility] Medical History Obesity (BMI 30-39.9) (Chronic) Nicotine dependence in remission (Chronic) Obstructive sleep apnea (Chronic) Hyperlipidemia (Chronic) Hypertension (Chronic) GERD (gastroesophageal reflux disease) (Chronic) Hypothyroidism (Chronic) Neuropathy (Chronic) Surgical History History of repair of rotator cuff (Chronic) History of right and left heart catheterization (Chronic 09/28/16) hernia repair (Chronic) Family History Father CAD (coronary artery disease) Social History Smoking Status: Former smoker pack-years: 168 alcohol intake: current alcohol intake frequency: holidays/special occasions only ROS Const Const: Negative for fatigue, weakness, difficulty sleeping, frequent falls, headache(s) or excessive sweating Eyes Eyes: Negative for loss of peripheral vision, transient loss of vision, blurry vision or double vision ENT ENT: Negative for headache(s), Negative for dizziness, Negative for Nosebleed/epistaxis, Negative for balance problems Cardio Chest Pain: No Edema: None Muscle aches with walking: None Resp Respiratory: Positive for SOB with activity (SOB with little activity); negative for SOB at rest, SOB orthopnea\SOB lying down or paroxysmal nocturnal dyspnea GI GI: Negative nausea or heartburn : Negative for hematuria Musc Musc: Negative for muscle aches/ myalgia, muscle weakness, joint pain or balance problems Skin Skin: Negative non-healing lesions, unusual bruising or rash Neuro Neuro: Negative for weakness, Negative for frequent falls, Negative for blurry vision, Negative for headache(s), Negative for dizziness, Negative for lightheadedness, Negative for orthostatic symptoms, Negative for double vision [facility] Hematologic/Lymphatic: Negative for easy bruising Endo Endo: Negative for fatigue, excessive sweating or increased thirst/drinking Psych Psych: Negative for anxiety or depression Allergy Allergy/Immunology: Negative for hives, Negative for rash Cardiology Exam Const Appearance: cooperative, healthy appearing and no acute distress Nutritional Appearance: well nourished Orientation: alert, oriented x3 and oriented to person Head Head: normal to inspection, atraumatic and normocephalic Nose: external nose normal Face and Sinus: face symmetric Mouth: oral mucosae normal Eyes General: appearance normal, both eyes and all related structures Eyelids: eyelids normal Conjunctivae: conjunctivae normal Pupils: PERRL and normal by confrontation EOM: EOM intact bilaterally Neck Neck: normal visual inspection and full ROM Carotids: normal carotid upstroke Chest Chest inspection: normal inspection of the chest Auscultation: Bilateral: Clear to Auscultation Cardio Palpation: normal PMI Rate: regular rate Rhythm: regular rhythm Heart sounds: S1 normal and S2 normal GI GI: normal to inspection, no hepatosplenomegaly and bowel sounds present Neuro General: alert, oriented x3, awake, CN's II-XI intact bilaterally and moves all extremities Skin Skin: no rashes or lesions noted Extremities Pulses: Normal: Right Femoral Pulse, Left Femoral Pulse, Right Dorsalis Pedis Pulse, Left Dorsalis Pedis Pulse, Right Posterior Tibial Pulse, Left Posterior Tibial Pulse, Right Radial Pulse, Left Radial Pulse Lower Extremity Edema: None: Bilateral Psych Psychological: normal affect Assessment AND Plan Plan 1. Dyspnea on exertion: Patient's main complaint is dyspnea on exertion as a result of his COPD. His most recent 6 minute walk test did not appreciably desaturate below 93% and yet he continues to have shortness of breath. I recommended he be referred to Dr. Stewart Bob for pulmonary consultation to determine if he requires any additional diagnostic studies and possible supplemental O2. His most recent catheterization in September 2016 showed normal coronary arteries and normal pulmonary pressures. 2. Return office in 6 months. This note was generated using a voice recognition system and there may be incorrect words, spelling or punctuation that were not noted when reviewing the office note prior to saving. Orders Referrals: Plan Detail Follow Up 6 Months (Mo) Coding Level of Care Code Off vis,est,level 3 Coding Level of Care Code Off vis,est,level 3 11/18/17 1020 <Electronically signed by Ubaldo Hassan MD> Date Ubaldo Hassan MD Cosigner Signature: Date (if applicable) CC: ALLERGIES ALLERGIES DATE TYPE / CODE NAME / CODE REACTION SEVERITY SOURCE Drug Penicillins/F0010 Anaphylaxis [place] 9 Allergy/257309701( 34923(RXNORM) [facility] Repository Drug dobutamine/R28161 Other-muscle [place] [facility] Allergy/768165949( 0614(RXNORM) spasm [facility] Hospital Repository Drug simvastatin/F0060 Other-myalgias [place] 9 Allergy/990892544( 64456(RXNORM) [facility] SNOMED CT) Hospital Repository Drug vancomycin/X27601 Other-htn [place] 9 Allergy/550534532( 4866(RXNORM) [facility] [employer] SNOMED CT) Hospital Repository Drug fluticasone/F0060 Other-nosebleed [place] [facility] 9 Allergy/732945980( 00059(RXNORM) [facility] [employer] SNOMED CT) Hospital Repository Drug atorvastatin/F006 Other-myalgias [place] [facility] Allergy/543668675( 686238(RXNORM) [facility] [employer] SNOMED CT) Hospital Repository Drug perflutren/U12222 Unknown Unknown [facility] [facility] Allergy/682363379( 9302(RXNORM) [facility] [employer] SNOMED CT) Hospital Repository Drug rosuvastatin/F006 Other-myalgias [place] [facility] 9 Allergy/720972631( 107435(RXNORM) [facility] Rep[facility] Drug perfume/[id number] Other-triggers [place] [facility] 9 Allergy/545448062( 0(RXNORM) asthma attack [facility] SNOMED [facility]) Hospital Repository Miscellaneous eggs Other-water [place] 8 Allergy/278613630( blisters [facility] SNOMED CT) Hospital Repository DRUG ROSUVASTATIN OTHER: SEE [facility] 8 INGREDI/954308415( CALCIUM Clinic Main SNOMED CT) [place] Repository DRUG DOBUTAMINE OTHER: SEE [facility] 8 INGREDI/210685446( Clinic Main SNOMED CT) [place] Rep[facility] DRUG FLUTICASONE OTHER: SEE [facility] 8 INGREDI/704643447( [facility] Main SNOMED CT) [place] Rep[facility] DRUG EGG OTHER: SEE [facility] 1 INGREDI/695500080( Clinic Main SNOMED CT) [place] Rep[facility] DRUG ATORVASTATIN OTHER: SEE [facility] 1 INGREDI/808159082( CALCIUM [facility] Main SNOMED CT) [place] Repository Drug PENICILLINS [facility] 1 Class/211507526(SN [facility] Main OMED CT) [place] Rep[place] Environ/343378829( PERFUMES [place] [address]) [facility] Main [place] Repository DRUG VANCOMYCIN OTHER: SEE [facility] 1 INGREDI/580267659( [facility] Main SNOMED CT) [place] Rep[facility] DRUG SIMVASTATIN OTHER: SEE [facility] 1 INGREDI/833895014( [facility] Main SNOMED CT) [place] Repository ENCOUNTERS ENCOUNTERS ADMIT/DISCHARGE ACCOUNT ADMITTING ENCOUNTER LOCATION SOURCE NUMBER CLASS 09/30/2018 [id number] Ambulatory [facility] Hospital ing:[facility] Repository 09/26/2018/09/26/19 [id number] Ambulatory BMSBuilding:B [place] [facility] Repository 08/29/2018 [id number] Ambulatory BMSBuilding:[facility] [place] MS.[facility] Repository 08/29/2018 [id number] Ambulatory [facility] HospitalBuild Hospital ing:[facility] Repository 08/21/2018/08/21/20 [id number] Ambulatory [address] Repository 08/20/2018/08/21/20 [id number] Ambulatory [address] Repository 08/07/2018 [id number] Ambulatory BMSBuilding:W [facility] Repository 08/06/2018 [id number] Ambulatory [facility] Hospitalild Hospital ing:PSN Repository 08/04/2018/08/04/20 [id number] [facility] [place] [facility] Repository 05/23/2018 [id number] Ambulatory [facility] Hospitalild Hospital ing:CT Repository 05/12/2018/05/12/20 [id number] Ambulatory BMSBuilding:[facility] [place] [facility] Repository 04/29/2018/04/29/20 [id number] Ambulatory [facility] [place] [facility] Hospital Repository 04/21/2018 [id number] Ambulatory [facility] HospitalBuild Hospital ing:PSN Repository 04/21/2018 [id number] Ambulatory BMSBuilding:[facility] Repository 02/25/2018 [id number] Ambulatory [facility] Hospitalild Hospital ing:[facility] Repository 02/25/2018 [id number] Ambulatory [facility] Repository 02/25/2018/02/27/20 [id number] Ambulatory [address] Repository 02/16/2018/02/17/20 [id number] Emergency [address] HospitalBuild Hospital ing:ED Repository 02/16/2018 [id number] Ambulatory BMSBuilding:[facility] [place].CF[facility] Hospital Repository 02/05/2018 [id number] Ambulatory [facility] HospitalBuild Hospital ing:PSN Repository 02/05/2018 [id number] Ambulatory BMSBuilding:W [facility] Repository 01/22/2018/01/23/20 [id number] Ambulatory [facility] [place] [facility] Hospital Repository 11/04/2017/11/04/19 [id number] Ambulatory BMSBuilding:[facility] [place] 18 [facility] Repository 11/01/2017 [id number] Ambulatory BMSBuilding:[facility] [place] [facility] Repository PAYERS PAYERS ENCOUNTER GUARANTOR PAYER SUBSCRIBER SOURCE 09/30/2018 APARNA Neves Primary APARNA Neves [place] [id number] OLD Insurance:SUM[place] CARE MEIKLEDOB: Community [id number] Number: Repository 48206Shi: 440 [id number] [phone] () Date:7791-67-31CC [address] [place] [address] 39574UX: 09/30/2018 Secondary NOT GIVENUNK [place] Insurance:SELF PAY [facility] Number: Effective Repository Date:2018-09-26 09/26/2018 APARNA Neves Primary APARNA Neves [place] [id number] OLD Insurance:SUMMA CARE MEIKLEDOB: Community [place] [id number] Number: Repository 96745Vmy: 440 [id number] [phone] () Date:9013-95-72NK [address] [place] [address] 95223OR: 09/26/2018 Secondary NOT GIVENUNK [place] Insurance:SELF PAY [facility] Number: Effective Repository Date:2018-09-25 08/29/2018 APARNA Neves Primary APARNA Neves [place] [id number] OLD Insurance:SUMMA CARE MEIKLEDOB: Community [id number] Number: Repository 39247Jxw: 440 [id number] [phone] () Date:2335-49-22JP [address] [place] [address] 59551CU: 08/29/2018 Secondary NOT GIVENUNK [place] Insurance:SELF PAY [facility] Number: Effective Repository Date:2018-08-29 08/29/2018 APARNA Neves Primary APARNA Neves [place] [id number] OLD Insurance:SUMMA CARE MEIKLEDOB: Community [place] [id number] Number: Repository 31074Fyg: 440 [id number] [phone] (HP) Date:7372-84-44HR [address] [facility] [address]YM: 08/29/2018 Secondary NOT GIVENUNK [place] Insurance:SELF PAY [facility] Number: Effective Repository Date:2018-08-05 08/07/2018 APARNA Neves Primary APARNA Neves [place] [id number] OLD Insurance:SUMMA CARE MEIKLEDOB: Community [place] [id number] Number: Repository 63594Tva: 440 [id number] [phone] (HP) Date:7184-91-83QA [address] [place] [address] 28149NN: 08/07/2018 Secondary NOT GIVENUNK [place] Insurance:SELF PAY [facility] Number: Effective Repository Date:2018-08-07 08/06/2018 APARNA Neves Primary APARNA Neves [place] [id number] OLD Insurance:SUMMA CARE MEIKLEDOB: Community [place] [employer] [id number] Number: Repository 28806Rgx: 440 [id number] [phone] (HP) Date:6801-42-58PW [address] [place] [address] 08383EA: 08/06/2018 Secondary NOT GIVENUNK [place] Insurance:SELF PAY [facility] Number: Effective Repository Date:2018-08-04 08/04/2018 APARNA Neves Primary APARNA Neves [place] [id number] OLD Insurance:SUMMA CARE MEIKLEDOB: Community [place] [id number] Number: Repository 31288Puo: 440 [id number] [phone] (HP) Date:8945-34-59KJ [address] [place] [address] 75509QW: 08/04/2018 Secondary NOT GIVENUNK [place] Insurance:SELF PAY [facility] Number: Effective Repository Date:2018-07-28 05/23/2018 APARNA Neves Primary APARNA Neves [place] [id number] OLD Insurance:SUMMA CARE MEIKLEDOB: Community [place] [employer] [id number] Number: Repository 88141Lvo: 440 [id number] [phone] () Date:5440-56-95ET [address] [place] [address] 81856WK: 05/23/2018 Secondary NOT GIVENUNK [place] Insurance:SELF PAY [facility] Number: Effective Repository Date:2018-05-13 05/12/2018 APARNA Neevs Primary APARNA Neves [place] [id number] OLD Insurance:SUMMA CARE MEIKLEDOB: Community [place] [employer] [id number], [place] Number: Repository 08021Wyu: 440 [id number] [phone] () Date:7320-93-72PF [address] [place] [address] 99006DT: 05/12/2018 Secondary NOT GIVENUNK [place] Insurance:SELF PAY [facility] Number: Effective Repository Date:2018-05-12 04/29/2018 APARNA Neves Primary APARNA Neves [place] [id number] OLD Insurance:SUMMA CARE MEIKLEDOB: Community [place] [employer] [id number] Number: Repository 66665Mxy: 440 [id number] [phone] () Date:5345-20-88HJ [address] [place] [address] 41771MV: 04/29/2018 Secondary NOT GIVENUNK [place] Insurance:SELF PAY [facility] Number: Effective Repository Date:2018-04-22 04/21/2018 APARNA Neves Primary APARNA Neves [place] [id number] OLD Insurance:SUM[place] CARE MEIKLEDOB: Community [place] [id number] Number: Repository 64144Zxy: (440 [id number] [phone] (HP) Date:7911-35-57WN [address] [place] [address] 31234YU: 04/21/2018 Secondary NOT GIVENUNK [place] Insurance:SELF PAY [facility] Number: Effective Repository Date:2018-01-22 04/21/2018 APARNA Neves Primary APARNA Neves [facility] [id number] OLD Insurance:SUMMA CARE MEIKLEDOB: Community [place] [id number] Number: Repository 47157Qbz: 440 [id number] [phone] (HP) Date:1976-40-59IY [address] [place] [address] 67650IS: 04/21/2018 Secondary NOT GIVENUNK [place] Insurance:SELF PAY [facility] Number: Effective Repository Date:2018-04-21 02/25/2018 APARNA Neves Primary APARNA Neves [place] [id number] OLD Insurance:SUM[place] CARE MEIKLEDOB: Community [place] [id number], [place] Number: Repository 64416Zeh: 440 [id number] [phone] (HP) Date:1768-26-63EH [address] [place] [address] 18777LI: 02/25/2018 Secondary NOT GIVENUNK [place] Insurance:SELF PAY [facility] Number: Effective Repository Date:2018-02-25 02/16/2018 APARNA Neves Primary APARNA Neves [place] [id number] OLD Insurance:SUMMA CARE MEIKLEDOB: Community [place] [id number] Number: Repository 10892Mcl: 440 [id number] [phone] (HP) Date:4646-47-99IS [address] 25207HZ: 02/16/2018 Secondary NOT GIVENUNK [place] Insurance:SELF PAY [facility] Number: Effective Repository Date:2018-02-16 02/16/2018 APARNA Neves Primary APANRA Neves [place] [id number] OLD Insurance:SUM[place] CARE MEIKLEDOB: Community [place] [id number] Number: Repository 53535Ync: (440 [id number] [phone] (HP) Date:3630-52-59WL [address] [place] [address] 11694ON: 02/16/2018 Secondary NOT GIVENUNK [place] Insurance:SELF PAY [facility] Number: Effective Repository Date:2018-02-16 02/05/2018 APARNA Neves Primary APARNA Neves [place] [id number] OLD Insurance:SUMMA CARE MEIKLEDOB: Community [place] [employer] [id number], [place] Number: Repository 37535Onx: 440 [id number] [phone] (HP) Date:2232-73-53QH [address] [place] [address] 84364WW: 02/05/2018 Secondary NOT GIVENUNK [place] Insurance:SELF PAY [facility] Number: Effective Repository Date:2018-01-22 02/05/2018 APARNA Neves Primary APARNA Neves [place] [id number] OLD Insurance:SUMMA CARE MEIKLEDOB: Community [place] [id number], [place] Number: Repository 14445Pvm: 440 [id number] [phone] (HP) Date:4863-44-78LQ [address] [place] [address] 85519YS: 02/05/2018 Secondary NOT GIVENUNK [place] Insurance:SELF PAY [facility] Number: Effective Repository Date:2018-02-05 01/22/2018 APARNA Neves Primary APARNA Neves [place] [id number] OLD Insurance:SUMMA CARE MEIKLEDOB: Community [place] [employer] [id number], [place] Number: Repository 23784Vbt: 440 [id number] [phone] (HP) Date:1952-64-12RO [address] [place] [address] 48748XU: 01/22/2018 Secondary NOT GIVENUNK [place] Insurance:SELF PAY [facility] Number: Effective Repository Date:2018-01-20 11/04/2017 APARNA Neves Primary APARNA Neves [place] [id number] OLD Insurance:SUMMA CARE MEIKLEDOB: Community [place] [employer] [id number] Number: Repository 78514Fwp: 440 [id number] [phone] Date:4391-74-97QX [address] [place] [address] 94118CZ: 11/04/2017 Secondary NOT GIVENUNK [place] Insurance:SELF PAY [facility] Number: Effective Repository Date:2017-08-21 11/01/2017 Aparna Neves Primary Aparna Neves [place] [id number] Old Insurance:SUMMA CARE MeikleDOB: Community [id number] Number: Repository 08936Ryb: 440 [id number] [phone] () Date:3662-94-58MG [address] [place] [address] 07877LN: 11/01/2017 Secondary NOT GIVENUNK [place] Insurance:SELF PAY [facility] Number: Effective Repository Date:2017-11-01
== END ==
PROVIDERS: Family Provider Family Medicine; PCP Family Medicine; Referring Provider Internal Medicine Critical Care Medicine; Visit Provider Internal Medicine Critical Care Medicine
DX: I35.1 Nonrheumatic aortic (valve) insufficiency (principal); I36.1 Nonrheumatic tricuspid (valve) insufficiency
CPT/HCPCS: 93306; Q9957; A4216; C8929

== ENCOUNTER → 2018-09-30 09:46 | Outpatient (CLI) | payer MEDICARE, SELFPAY ==
[2018-09-26 14:01] VITALS: BMI 41.1
== END ==
PROVIDERS: Family Provider Family Medicine; PCP Family Medicine; Referring Provider Internal Medicine Cardiovascular Disease; Visit Provider Internal Medicine Cardiovascular Disease
DX: R03.0 Elevated blood-pressure reading, without diagnosis of hypertension (principal)
CPT/HCPCS: 93788

== ENCOUNTER → 2019-02-17 10:41 | Outpatient (CLI) | payer MEDICARE, SELFPAY ==
[2018-11-04 09:45] VITALS: BMI 41.1
[2019-02-17 10:50] VITALS: PULSE 107; PULSE 83; PULSE 86; PULSE 91; PULSE 97; PULSE 98; PULSE 99; O2SAT 91; O2SAT 92; O2SAT 93; O2SAT 94; O2SAT 95
--- NOTE | 2019-02-18 08:19 | WT_ITS ---
PSN 6 Minute Walk Test - 6 Minute Walk Test 6 Minute Walk Test: 6 Minute Walk Test PSN:6-Minute Walk Test Start: 02/17/19 12:45 Freq: Status: Active Protocol: RESP.6MINW Document 02/17/19 10:50 [facility] (Rec: 02/17/19 12:49 [facility] [id number]) 6 Minute Walk Test Date Performed 02/17/19 Time Performed 10:50 Height 5 ft 10 in Weight: 617 lb 4.709 oz Weight in Pounds 617.[address]: Penny Esquivel Assistive device used: None Pre-test Oxygen Delivery Method Room Air Pulse Ox (%) 94 Pulse Rate (60-100 beats/min) 83 Dyspnea Richard Scale (0-10) 0.5 Exertion Richard Scale (6-20) 6 1st minute Oxygen Delivery Method Room Air Pulse Ox (%) 93 Pulse Rate (60-100 beats/min) 91 Number of Rests Taken 0 2nd minute Oxygen Delivery Method Room Air Pulse Ox (%) 92 Pulse Rate (60-100 beats/min) 86 Number of Rests Taken 0 3rd minute Oxygen Delivery Method Room Air Pulse Ox (%) 94 Pulse Rate (60-100 beats/min) 98 Number of Rests Taken 0 4th minute Oxygen Delivery Method Room Air Pulse Ox (%) 92 Pulse Rate (60-100 beats/min) 97 Number of Rests Taken 0 5th minute Oxygen Delivery Method Room Air Pulse Ox (%) 93 Pulse Rate (60-100 beats/min) 99 Number of Rests Taken 0 6th minute Oxygen Delivery Method Room Air Pulse Ox (%) 91 Pulse Rate (60-100 beats/min) 107 H Number of Rests Taken 0 Post-test Oxygen Delivery Method Room Air Pulse Ox (%) 95 Pulse Rate (60-100 beats/min) 86 Dyspnea Richard Scale (0-10) 3 Exertion Richard Scale (6-20) 12 Full Laps Walked 12 Partial Lap, Number of Tiles Walked 20 Total Distance Walked (ft) 728 - Interpretation Interpretation: The patient ambulated 728 feet over the course of 6 minutes beginning on room air without assistive devices or breaks. Pretesting oxygen saturation was noted to be 94% on room air. With ambulation, the wilbur oxygen saturation was 91%. There was no significant exertional oxygen desaturation. - Recommendations Recommendations: There is no indication for the use of supplemental oxygen at this time.
== END ==
PROVIDERS: Family Provider Family Medicine; PCP Family Medicine; Referring Provider Nurse Practitioner Acute Care; Visit Provider Nurse Practitioner Acute Care
DX: R06.00 Dyspnea, unspecified (principal)
CPT/HCPCS: 94618

== ENCOUNTER → 2019-02-19 13:04 | Outpatient (CLI) | payer MEDICARE, SELFPAY ==
[2018-11-04 09:45] VITALS: BMI 41.1
[2019-02-19 14:26] LABS: Absolute Lymphocyte Count 3.29 X10^3/ul (0.83-4.51); Absolute Neutrophil Count 4.2 X10^3/uL (2.0-7.7); Basophil# 0.03 X10^3/uL; Basophil% 0.4 % (0-1); Eosinophil# 0.21 X10^3/uL; Eosinophils% 2.5 % (0-5); Hematocrit 49.8 % (40-54); Hemoglobin 16.9 g/dl (13.0-16.5); Lymphocyte # 3.29 X10^3/ul (4.0); Lymphocyte % 39.2 % (19-41); Mean Corp Hgb Conc 33.9 g/gl (32-36); Mean Corpuscular Hgb 30.7 pg (27.0-32.0); Mean Corpuscular Volume 90.5 fL (80-94); Mean Platelet Vol. 11.2 fl (6.2-12.0); Monocyte# 0.61 X10^3/uL; Monocyte% 7.3 % (0-10); Neutrophil # 4.24 X10^3/uL (2.7-7.7); Neutrophil % 50.5 % (47-70); POSITIVE COUNT NO; POSITIVE DIFFERENTIAL NO; POSITIVE MORPHOLOGY NO; Platelet Count 155 K/mm3 (150-450); RBC Distribution Width CV 13.5 % (11.6-14.6); RBC Distribution Width SD 44.4 fl (35.1-43.9); White Blood Count 8.4 K/mm3 (4.4-11.0)
[2019-02-19 14:37] LABS: Vitamin B12 388 pg/mL (211-911); Vitamin D,25 Hydroxy 57.7 ng/mL (29.95-100.01)
[2019-02-19 14:39] LABS: ALB/GLOB Ratio 0.9 RATIO (0.9-2.4); AST(SGOT) 29 U/L (15-37); Alanine Aminotransfer ALT/SGPT 47 U/L (16-61); Albumin, Serum 3.6 g/dL (3.2-5.0); Alkaline Phosphatase 76 U/L (45-117); Anion Gap 8 (5-15); BUN 19 mg/dL (7-18); BUN/Creat Ratio 18.8 RATIO (10-20); Calcium,Total 9.1 mg/dL (8.5-10.1); Chloride 104 mmol/L (98-107); Cholesterol 212 mg/dL (200); Creatinine, Serum 1.01 mg/dL (0.70-1.30); EST Glomerular Filtration Rate 77 mL/min (>60); Est Glom Filt Rate - Afr Amer 93 mL/min (>60); Globulin 3.8 g/dL (2.2-4.2); Glucose 111 mg/dL (74-106); High Density Lipoprotein 47 mg/dL; Potassium 4.1 mmol/L (3.5-5.1); Protein, Total 7.4 g/dL (6.4-8.2); Sodium Level 139 mmol/L (136-145); Thyroid Stim Hormone (TSH) 0.55 uIU/mL (0.358-3.74); Triglycerides 233 mg/dL; Very Low Density Lipoprotein 47 mg/dL (5-40)
== END ==
PROVIDERS: Family Provider Family Medicine; PCP Family Medicine; Visit Provider Family Medicine
DX: R53.83 Other fatigue (principal); E78.1 Pure hyperglyceridemia; E07.9 Disorder of thyroid, unspecified; E55.9 Vitamin D deficiency, unspecified
CPT/HCPCS: 80053; 80061; 82306; 82607; 84443; 85025

== ENCOUNTER → 2020-02-25 | Outpatient (CLI) | payer MEDICARE, SELFPAY ==
[2019-10-23 09:56] VITALS: BMI 40.3
[2020-02-25 12:41] LABS: Hematocrit 44.6 % (40-54); Hemoglobin 15.1 g/dL (13.0-16.5); Mean Corp Hgb Conc 33.9 g/dL (32-36); Mean Corpuscular Hgb 30.9 pg (27.0-32.0); Mean Corpuscular Volume 91.2 fL (80-94); Mean Platelet Vol. 11.4 fl (6.2-12.0); Platelet Count 217 K/mm3 (150-450); RBC Distribution Width CV 12.8 % (11.6-14.6); RBC Distribution Width SD 42.4 fl (35.1-43.9); Red Blood Count 4.89 M/mm3 (4.6-6.2); White Blood Count 8.5 K/mm3 (4.4-11.0)
[2020-02-25 13:03] LABS: Vitamin B12 509 pg/mL (211-911)
[2020-02-25 13:05] LABS: ALB/GLOB Ratio 0.9 RATIO (0.9-2.4); AST(SGOT) 20 U/L (15-37); Alanine Aminotransfer ALT/SGPT 25 U/L (16-61); Albumin, Serum 3.8 g/dL (3.2-5.0); Alkaline Phosphatase 63 U/L (45-117); Anion Gap 9 (5-15); BUN 61 mg/dL (7-18); BUN/Creat Ratio 41.2 RATIO (10-20); Chloride 93 mmol/L (98-107); Cholesterol 209 mg/dL (200); Creatinine, Serum 1.48 mg/dL (0.70-1.30); EST Glomerular Filtration Rate 49 mL/min (>60); Est Glom Filt Rate - Afr Amer 60 mL/min (>60); Globulin 4.3 g/dL (2.2-4.2); Glucose 146 mg/dL (74-106); Hemoglobin A1c 6.5 % (3.8-5.6); High Density Lipoprotein 35 mg/dL; Potassium 3.6 mmol/L (3.5-5.1); Protein, Total 8.1 g/dL (6.4-8.2); Sodium Level 135 mmol/L (136-145); Thyroid Stim Hormone (TSH) 1.34 uIU/mL (0.358-3.74); Triglycerides 201 mg/dL; Very Low Density Lipoprotein 40 mg/dL (5-40)
== END | disposition home or self-care (01) ==
LOC: LABSPEC 12:15
PROVIDERS: PCP Family Medicine; Referring Provider Family Medicine; Visit Provider Family Medicine
DX: I10 Essential (primary) hypertension (principal); E07.9 Disorder of thyroid, unspecified; E03.9 Hypothyroidism, unspecified; R53.83 Other fatigue; R73.09 Other abnormal glucose
CPT/HCPCS: 80053; 80061; 82607; 83036; 84443; 85027

== ENCOUNTER → 2020-06-13 07:42 | Outpatient (CLI) | payer MEDICARE, SELFPAY ==
[2020-05-02 09:40] VITALS: BMI 39.6
[2020-06-13 08:55] LABS: AST(SGOT) 23 U/L (15-37); Alanine Aminotransfer ALT/SGPT 24 U/L (16-61); Albumin, Serum 4.1 g/dL (3.2-5.0); Alkaline Phosphatase 72 U/L (45-117); Bilirubin, Direct 0.23 mg/dL (0.00-0.30); Cholesterol 207 mg/dL (200); Globulin 4.1 g/dL (2.2-4.2); High Density Lipoprotein 40 mg/dL; Protein, Total 8.2 g/dL (6.4-8.2); Triglycerides 171 mg/dL; Very Low Density Lipoprotein 34 mg/dL (5-40)
== END ==
PROVIDERS: PCP Family Medicine; Referring Provider Internal Medicine Cardiovascular Disease; Visit Provider Internal Medicine Cardiovascular Disease
DX: E78.5 Hyperlipidemia, unspecified (principal)
CPT/HCPCS: 36415; 80061; 80076

== ENCOUNTER → 2020-10-31 07:56 | Outpatient (CLI) | payer MEDICARE, SELFPAY ==
[2020-10-10 08:40] VITALS: BMI 38.0
--- NOTE | 2020-10-31 14:43 | PFTCOMP ---
COMPLETE PULMONARY FUNCTION TEST INTERPRETATION Brief HPI: Patient is a 75 year old male, currently under the care of myself, who presents to [facility] for complete pulmonary function tests secondary to diagnosis of dyspnea. Respiratory therapist reports good effort and reproducible results. Interpretation: Forced expiration spirometry shows a moderate large airways obstructive ventilatory defect with an FEV1 of 65% predicted. There is a significant bronchodilator response in FEV1 by strict ATS criteria. Spirograms are of good quality and plateau slowly, indicating slowly emptying areas of the lungs. The respiratory flow volume loop shows decreased expiratory flow rates at all lung volumes consistent with airway obstruction. Lung volumes by body plethysmography show a decreased total lung capacity at 5.17 L, 80% predicted. All other lung volumes are reduced symmetrically. Diffusion capacity by carbon monoxide is normal at 83% predicted. The airway resistance is elevated. There was no significant change compared to previous study completed on April 21, 2018. Impression: Partially reversible moderate mixed ventilatory defect with relatively preserved diffusion capacity.
== END ==
PROVIDERS: PCP Family Medicine; Referring Provider Nurse Practitioner Acute Care; Visit Provider Nurse Practitioner Acute Care
DX: R06.02 Shortness of breath (principal)
CPT/HCPCS: 94060; 94726; 94729

== ENCOUNTER → 2020-11-03 10:32 | Outpatient (CLI) | payer MEDICARE, SELFPAY ==
[2020-10-10 08:40] VITALS: BMI 38.0
[2020-11-03 09:27] VITALS: BMI 39.0
[2020-11-03 11:15] VITALS: PULSE 104; PULSE 85; PULSE 90; PULSE 91; PULSE 92; PULSE 93; PULSE 94; PULSE 97; O2SAT 92; O2SAT 93; O2SAT 94; O2SAT 95; O2SAT 96
--- NOTE | 2020-11-03 11:29 | CPS ---
Patient stated prior to test that he has been feeling very winded today, as well as lightheaded and dizzy. Patient also stated that his blood pressure when checked at home was low for him. Patient had to take a break during the test as he was feeling very lightheaded, and took a 2 minute break.
[2020-11-03 11:31] LABS: Absolute Lymphocyte Count 2.22 X10^3/uL (0.83-4.51); Basophil# 0.06 X10^3/uL; Basophil% 0.7 % (0-1); Eosinophil# 0.07 X10^3/uL; Eosinophils% 0.8 % (0-5); Hemoglobin 16.1 g/dL (13.0-16.5); Lymphocyte # 2.22 X10^3/ul (4.0); Lymphocyte % 24.1 % (19-41); Mean Corp Hgb Conc 33.5 g/dL (32-36); Mean Corpuscular Hgb 29.9 pg (27.0-32.0); Mean Corpuscular Volume 89.1 fL (80-94); Mean Platelet Vol. 11.3 fl (6.2-12.0); Monocyte# 0.83 X10^3/uL; NRBC Flagged by Analyzer 0 % (0-5); Neutrophil # 6.02 X10^3/uL (2.7-7.7); Neutrophil % 65.1 % (47-70); Platelet Count 223 K/mm3 (150-450); RBC Distribution Width CV 12.7 % (11.6-14.6); RBC Distribution Width SD 41.6 fl (35.1-43.9); Red Blood Count 5.39 M/mm3 (4.6-6.2); White Blood Count 9.2 K/mm3 (4.4-11.0)
[2020-11-03 12:02] LABS: AST(SGOT) 20 U/L (15-37); Alanine Aminotransfer ALT/SGPT 19 U/L (16-61); Alkaline Phosphatase 92 U/L (45-117); Anion Gap 9 (5-15); BUN 53 mg/dL (7-18); BUN/Creat Ratio 36.1 RATIO (10-20); Chloride 92 mmol/L (98-107); Cholesterol 200 mg/dL (200); Creatinine, Serum 1.47 mg/dL (0.70-1.30); EST Glomerular Filtration Rate 50 mL/min (>60); Est Glom Filt Rate - Afr Amer 60 mL/min (>60); Estimated Creatinine Clearance 44.83 ml/min; Globulin 4.2 g/dL (2.2-4.2); Glucose 137 mg/dL (74-106); High Density Lipoprotein 41 mg/dL; Potassium 3.3 mmol/L (3.5-5.1); Protein, Total 8.2 g/dL (6.4-8.2); Sodium Level 132 mmol/L (136-145); Triglycerides 248 mg/dL; Very Low Density Lipoprotein 50 mg/dL (5-40)
--- NOTE | 2020-11-03 17:08 | PCM.PSN.6M ---
PSN 6 Minute Walk Test - 6 Minute Walk Test 6 Minute Walk Test: 6 Minute Walk Test PSN:6-Minute Walk Test Start: 11/03/20 11:26 Freq: Status: Active Protocol: RESP.6MINW Document 11/03/20 11:15 [facility] (Rec: 11/03/20 11:32 [id number]) 6 Minute Walk Test Date Performed 11/03/20 Time Performed 11:15 Height 5 ft 10 in Weight: 117.934 kg Weight in Pounds 260.[address]: Penny Esquivel [facility] TEAM LEAD FIO2 (% Oxygen) 21 Assistive device used: Walker Pre-test Oxygen Delivery Method Room Air Pulse Ox (%) 92 Pulse Rate (60-100 beats/min) 90 Dyspnea Richard Scale (0-10) 0 Exertion Richard Scale (6-20) 6 1st minute Oxygen Delivery Method Room Air Pulse Ox (%) 94 Pulse Rate (60-100 beats/min) 93 2nd minute Oxygen Delivery Method Room Air Pulse Ox (%) 95 Pulse Rate (60-100 beats/min) 104 H Number of Rests Taken 1 3rd minute Oxygen Delivery Method Room Air Pulse Ox (%) 95 Pulse Rate (60-100 beats/min) 97 Number of Rests Taken 1 4th minute Oxygen Delivery Method Room Air Pulse Ox (%) 95 Pulse Rate (60-100 beats/min) 91 Number of Rests Taken 1 5th minute Oxygen Delivery Method Room Air Pulse Ox (%) 96 Pulse Rate (60-100 beats/min) 85 6th minute Oxygen Delivery Method Room Air Pulse Ox (%) 93 Pulse Rate (60-100 beats/min) 92 Post-test Oxygen Delivery Method Room Air Pulse Ox (%) 93 Pulse Rate (60-100 beats/min) 94 Dyspnea Richard Scale (0-10) 5 Exertion Richard Scale (6-20) 8 Full Laps Walked 7 Partial Lap, Number of Tiles Walked 26 Total Distance Walked (ft) 439 11/03/20 11:29 Cardiopulmonary Services by Della Ibanez Patient stated prior to test that he has been feeling very winded today, as well as lightheaded and dizzy. Patient also stated that his blood pressure when checked at home was low for him. Patient had to take a break during the test as he was feeling very lightheaded, and took a 2 minute break. Initialized on 11/03/20 11:29 - END OF NOTE - Interpretation Interpretation: The patient was able to ambulate 439 feet over the course of 6 minutes on room air with the assistance of a walker and 3 breaks. The patient did not experience significant desaturation and had a peak heart rate of 104 bpm. These findings are consistent with a musculoskeletal limitation exercise tolerance. - Recommendations Recommendations: No supplemental oxygen is indicated at this time.
== END ==
PROVIDERS: Physician Assistant Medical; PCP Family Medicine; Referring Provider Nurse Practitioner Acute Care; Visit Provider Nurse Practitioner Acute Care
DX: R06.02 Shortness of breath (principal); I50.30 Unspecified diastolic (congestive) heart failure
CPT/HCPCS: 36415; 80053; 80061; 85025; 94618

== ENCOUNTER → 2020-11-14 09:36 | Outpatient (CLI) | payer MEDICARE, SELFPAY ==
[2020-11-03 09:27] VITALS: BMI 39.0
--- NOTE | 2020-11-14 09:56 | ECHOD_ITS ---
Reason For Study: Dyspnea/SOB Procedure This was a 2D Doppler, Color Flow transthoracic echocardiogram. Technically difficult study, unable to utilize definity due to allergy. Exam performed in department. Left Ventricle Normal LV size. Left ventricular systolic function is normal. The estimated ejection fraction is 60 %. Stage 1 diastolic dysfunction. Right Ventricle Normal RV size. Normal systolic function. Atria Normal left atrium. Normal right atrium. Mitral Valve Normal mitral valve. Tricuspid Valve Normal tricuspid valve. Aortic Valve The aortic valve is not well visualized. Pulmonic Valve Normal pulmonic valve. Great Vessels Normal aortic root. The pulmonary artery is normal size. Normal inferior vena cava. Pericardium/Pleural No pericardial effusion. Medication DEFINITY ALLERGY. MMode/2D Measurements & Calculations Ao root diam: 4.1 cm LAV(MOD-bp): 39.3 ml LA A4 area: 16.3 cm2 LAV(MOD-bp) Indexed: 16.5 ml/m2 LAV(MOD-sp2): 37.8 ml LAV(MOD-sp4): 39.9 ml RA A4 area: 12.5 cm2 Time Measurements MV dec time: 0.19 sec Doppler Measurements & Calculations MV E max graham: 73.8 cm/sec Lat Peak E' Graham: 8.5 cm/sec Med Peak E' Graham: 9.3 cm/sec MV A max graham: 92.9 cm/sec E/E' lat: 8.7 E/E' med: 7.9 MV E/A: 0.79 MV V2 max: 97.4 cm/sec MV P1/2t max graham: 84.6 cm/sec Ao V2 max: 120.8 cm/sec MV max P.8 mmHg MV P1/2t: 108.8 msec Ao max P.8 mmHg MV V2 mean: 54.1 cm/sec MV mean P.4 mmHg MV dec slope: 227.6 cm/sec2 MV V2 VTI: 31.8 cm MVA(P1/2t): 2.0 cm2 LV V1 max: 94.3 cm/sec PA V2 max: 92.5 cm/sec LV V1 max P.6 mmHg Interpretation Summary Normal LV size. Left ventricular systolic function is normal. The estimated ejection fraction is 60 %. Stage 1 diastolic dysfunction. Ordering Physician: Aviva Mayo Referring Physician: Frank Sood Performed By: Clay Morton RCS
== END ==
PROVIDERS: PCP Family Medicine; Referring Provider Physician Assistant Medical; Visit Provider Physician Assistant Medical
DX: R06.02 Shortness of breath (principal)
CPT/HCPCS: 93306

== ENCOUNTER → 2020-11-30 06:31 | Outpatient (CLI) | payer MEDICARE, SELFPAY ==
[2020-11-03 09:27] VITALS: BMI 39.0
--- NOTE | 2020-11-30 17:35 | STRESSREP ---
Stress Test Report Pharmacologic myocardial perfusion stress test. 75-year-old man with a history of hypertension, hyperlipidemia, obstructive sleep apnea. Patient presents with shortness of breath. Stress protocol: Resting EKG demonstrates normal sinus rhythm with a rate of 81 bpm normal intervals are noted resting blood pressure is 142/82 mmHg. 0.4 mg of regadenoson was infused per usual protocol followed by rapid venous saline flush injection continuous EKG monitoring was performed. The maximum heart rate attained was 105 bpm which was 72% of max impacted heart rate the maximum workload was 1 metabolic equivalent. At rest there were no ST or T wave changes noted to suggest abnormal flow reserve at peak infusion nonspecific ST-T wave changes noted with no meet the criteria for ischemia. No clinical angina was noted. Myocardial perfusion protocol. 14.9 mCi of technetium 99m sestamibi was injected at rest. 0.4 mg of regadenoson was infused per usual protocol. At peak infusion 44.8 mCi of technetium 99m sestamibi was injected stress images were obtained stress and rest images were reconstructed and compared in the short axis vertical long horizontal long axis. Gated images were also obtained Perfusion SPECT analysis: Review of the stress images demonstrate normal uptake of tracer noted in all areas of the myocardium the resting images similar demonstrate normal uptake of tracer noted in all areas of the myocardium. No areas of reversibility are noted suggest ischemia no previous infarct is noted. Gated SPECT analysis: The gated ejection fraction is 62%. Conclusion: Normal pharmacologic myocardial perfusion stress test. Preserved ejection fraction.
== END ==
PROVIDERS: PCP Family Medicine; Referring Provider Physician Assistant Medical; Visit Provider Physician Assistant Medical
DX: R06.00 Dyspnea, unspecified (principal); R06.02 Shortness of breath
CPT/HCPCS: 78452; 93017; A9500; A4216; J2785

== ENCOUNTER → 2020-12-20 16:52 | Outpatient (CLI) | payer MEDICARE, SELFPAY ==
[2020-12-07 14:13] VITALS: BMI 40.1
[2020-12-20 17:27] LABS: Absolute Lymphocyte Count 3.77 X10^3/uL (0.83-4.51); Absolute Neutrophil Count 4.6 X10^3/uL (2.0-7.7); Basophil# 0.05 X10^3/uL; Basophil% 0.5 % (0-1); Eosinophil# 0.17 X10^3/uL; Eosinophils% 1.8 % (0-5); Hematocrit 48.7 % (40-54); Hemoglobin 15.6 g/dL (13.0-16.5); Lymphocyte # 3.77 X10^3/ul (4.0); Lymphocyte % 40.2 % (19-41); Mean Corpuscular Hgb 29.5 pg (27.0-32.0); Mean Corpuscular Volume 92.1 fL (80-94); Mean Platelet Vol. 10.9 fl (6.2-12.0); Monocyte# 0.81 X10^3/uL; Monocyte% 8.6 % (0-10); NRBC Flagged by Analyzer 0 % (0-5); Neutrophil # 4.55 X10^3/uL (2.7-7.7); Neutrophil % 48.6 % (47-70); Platelet Count 214 K/mm3 (150-450); RBC Distribution Width CV 13.5 % (11.6-14.6); RBC Distribution Width SD 46.1 fl (35.1-43.9); Red Blood Count 5.29 M/mm3 (4.6-6.2); White Blood Count 9.4 K/mm3 (4.4-11.0)
--- NOTE | 2020-12-20 17:27 | RAD_ITS ---
INDICATION: THORACOLUMBAR DISC DISORDER EXAMINATION/TECHNIQUE: X-RAY - XR Spine Lumbar 2 or 3 Views COMPARISON: None. FINDINGS: VERTEBRAE: Preserved vertebral body height. No fracture. No spondylolisthesis. Mild right convex curvature of the mid lumbar spine. Straightening of the normal lumbar lordosis. Moderate multilevel facet arthropathy. DISCS: Moderate multilevel disc space narrowing and osteophytosis. INCLUDED ABDOMEN: Included bowel gas pattern is non-obstructive. Vascular calcifications. RAD/Lumbar Spine 2 or 3 Views IMPRESSION: No acute abnormalities. Moderate multilevel lumbar spondylosis and facet arthropathy. Electronically Signed: Carl Hill MD at 18:33 EDT Tel , Service support ,
[2020-12-20 18:45] LABS: AST(SGOT) 22 U/L (15-37); Alanine Aminotransfer ALT/SGPT 22 U/L (16-61); Albumin, Serum 3.9 g/dL (3.2-5.0); Alkaline Phosphatase 97 U/L (45-117); Anion Gap 7 (5-15); BUN 27 mg/dL (7-18); BUN/Creat Ratio 27.4 RATIO (10-20); Calcium,Total 9.6 mg/dL (8.5-10.1); Chloride 100 mmol/L (98-107); Creatinine, Serum 0.99 mg/dL (0.70-1.30); EST Glomerular Filtration Rate 79 mL/min (>60); Est Glom Filt Rate - Afr Amer 95 mL/min (>60); Glucose 104 mg/dL (74-106); PSA,Total - Annual Screen 0.26 ng/mL (0.00-4.00); Potassium 3.8 mmol/L (3.5-5.1); Protein, Total 7.9 g/dL (6.4-8.2); Sodium Level 137 mmol/L (136-145); Thyroid Stim Hormone (TSH) 0.37 uIU/mL (0.358-3.74)
[2020-12-21 08:50] LABS: Hepatitis C Antibody Non-Reactive (Nonreactive); Vitamin D,25 Hydroxy 55.8 ng/mL
== END ==
PROVIDERS: PCP Family Medicine Geriatric Medicine; Visit Provider Family Medicine Geriatric Medicine
DX: E55.9 Vitamin D deficiency, unspecified (principal); R53.83 Other fatigue; Z12.5 Encounter for screening for malignant neoplasm of prostate; Z13.89 Encounter for screening for other disorder
CPT/HCPCS: 36415; 72100; 80053; 82306; 84153; 84443; 85025; 86803; G0103

== ENCOUNTER → 2021-01-05 08:56 | Outpatient (CLI) | payer MEDICARE, SELFPAY ==
[2020-12-07 14:13] VITALS: BMI 40.1
--- NOTE | 2021-01-05 08:58 | AAVD_ITS ---
Reason For Study: AAA without rupture Aorta Measurements Aorta Doppler Measurements Proximal aorta measures1.83 x 1.71cm. in cross- Peak systolic flow velocities within the proximal sectional axis. aorta measure 90.4 cm/sec. Proximal aorta measures1.86cm. in longitudinal Peak systolic flow velocities within the mid aorta axis. measure 77.2 cm/sec. Mid aorta measures1.49 x 1.54cm. in cross- Peak systolic flow velocities within the distal sectional axis. aorta measure 81.6 cm/sec. Mid aorta measures1.47cm. in longitudinal axis. Distal aorta measures1.55 x 1.55cm. in cross- sectional axis. Distal aorta measures1.63cm. in longitudinal axis. Left Iliac Artery Left iliac artery measures 1.01 x 1.13 cm. in the cross-sectional axis. Left iliac artery measures 1.01 cm. in the longitudinal axis. Peak systolic velocity in the left iliac artery measures 83.8 cm/sec. Right Iliac Artery Right iliac artery measures .82 x .9 cm. in the cross-sectional axis. Right iliac artery measures .91 cm. in the longitudinal axis. Peak systolic velocity in the right iliac artery measures 88.2 cm/sec. Procedure Aorta IVC Iliac vasculature or bypass grafts 76889. The exam was diagnostic. Exam performed in department. VL/Abd Aortic/IVC Duplex scan Interpretation Summary The dimensions of the intra-abdominal aorta appear normal, without evidence of aneurysmal dilatation. The iliac arteries also appear normal in size bilaterally. The intr a-abdominal aorta and iliac arteries appear patent, demonstrating normal, pulsatile arterial flow and normal peak systolic velocities. Ordering Physician: Ted Fry Performed By: Fermin Cortez RVJennifer
== END ==
PROVIDERS: PCP Family Medicine Geriatric Medicine; Referring Provider Family Medicine Geriatric Medicine; Visit Provider Family Medicine Geriatric Medicine
DX: I71.4 Abdominal aortic aneurysm, without rupture (principal)
CPT/HCPCS: 93978

== ENCOUNTER 2021-02-06 16:00 | Outpatient (RCR) | payer MEDICARE, SELFPAY ==
[2020-12-07 14:13] VITALS: BMI 40.1
--- NOTE | 2021-01-02 14:01 | HP.PTEVAL_ITS ---
Patient's Visit Information APARNA CARRERA is a 75 year old M referred to Physical Therapy by Dr. Ted Fry MD with a diagnosis of Low Back Pain. Date of Evaluation: 01/02/21 Physical Therapist: Alexandra Nelson DPT - Visit Plan Frequency: 2x /Week Duration: 4 Weeks Plan: Focus on LE and Core strength/stabilization- standing tolerance. HEP Given IE: SLS, HR/TR, Standing Marching - Subjective Patient reports that he has had back problems for a lot of years- he has OA and DDD. 2013- He 1-2-3 are disinegrated and they could not find L4. Very little feeling from his hips down- has a little bit of sensation and they feel cold. Has had recent x-rays taken December 20- and an MRI scheduled on the 05 of January. Has not seen a spine specialst- only through Dr. Fry. He has little to no pain but more the weakness. Once he sits for a couple of minutes to regain breathing then he can go againg. Once he gets out of the car he has to stand get his bearings to get moving. The last fall was 2017- slipped getting out of the car. 5 steps to get into the home then he is all one one floor. He does all ADL's- uses an [employer] scooter to be able to shop for himself. Lives indepently. Does not use O2 but does have a rescue inhaler as needed. O2 runs between 90-95. Sleep: not disturbed- does not use a CPAP. He uses a rollerator due to SOB due to and his legs feel like they will buckle. Does not use it in his home just community distance. Goals for therapy-wants to be less SOB, feel his feet. PMHx/Meds: see list scanned in chart- Dr. Fry stopped all medications- but he is back on Lasix- due to increased BP. - Objective Posture: FH, RS- can correct with tactile and verbal cues- can correct but is unable to maintain. Gait: rollerator- decreased don and SOB after 150 feet but did not require a rest break. Balance: see FGA. HR/TR: able with UE A. SLS: weight shift but unable to SLS without UE A. Sensation: WFL to gross touch in LE. Reflex: Patellar bilateral WFL. ROM: Lumbar: Flexion: hands to knees, Extn: neutral, SB: decreased by 50%, Rotation: decreased by 50%. Hip/Knee/Ankle: WFL. Strength: Core: fair minus, Hip: 4/5 throughout, Knee: 5/5, Ankle: 5/5. Flex: HS: severe, Gastroc: severe. Special Test: Slump: positive, SLR: positive, Dural Signs: positive - Balance Scores Functional Gait Assessment Score: 10 % Disability: 66.6700 - Goals Goal 1:: Patient will be I with HEP and progression Goal Time Frame: 4-6 Weeks Goal 2:: Patient will stand for more than 5 minutes without requring a rest break Goal Time Frame: 4-6 Weeks Goal 3:: Patient will maintain proper posture t/o tx session to demo increased core s/s Goal Time Frame: 4-6 Weeks - Rehabilitation Potential Physical Therapy Diagnosis: Patient presents with hypomobility- she has decreased ROM,strength, flex and muscular endurance leading to poor posture, decrease endurance and difficulty with ADL's. Rehabilitation Potential: Fair - Anticipated Interventions Patient/Client Instruction: Educate patient on: Benefits of Fitness Program Therapeutic Exercise to Include: Strength training, Endurance training, Balance training, Agility training, Body mechanics, Postural training, Flexibilty training, Gait and locomotor training, Neuromotor development, Passive ROM, Active ROM, Dynamic Lumbar Stabilization, Scapular Strength/Stabilization For the Purpose of:: To improve muscle performance and motor function TENS: Yes Cryotherapy (ice pack, ice massage): Yes Thermo therapy (hot pack): Yes Ultrasound (thermal/non thermal): No Thank you for the opportunity to evaluate your patient. For Medicare and Medicare HMO plans, please review the plan of care and approve it. It will need to be FAXED BACK to us at [phone] for Medicare purposes. For Medicare only, by signing this I certify the plan of care. Please let me know if there are questions or concerns regarding this plan of care. Physician Signature: Date:
--- NOTE | 2021-02-06 16:33 | HP.PTDCSUM ---
It has been my pleasure to treat APARNA CARRERA referred by Dr. Ted Fry MD, with the diagnosis of Low Back Pain for a total of 9 visit(s). Discharge Date: Please see the following information for a summary of their discharge status. Subjective: Patient reports that he feels that he is no better or no worse- but he feels that this was a waste of his time. % Improvement: 0 Objective/Function: Posture: FH, RS- can correct with tactile and verbal cues- can correct but is unable to maintain. Gait: rollerator- decreased don and SOB after 300 feet but did not require a rest break. Balance: see FGA. HR/TR: able with UE A. SLS: weight shift but unable to SLS without UE A. Sensation: WFL to gross touch in LE. Reflex: Patellar bilateral WFL. ROM: Lumbar: Flexion: hands to knees, Extn: neutral, SB: decreased by 50%, Rotation: decreased by 50%. Hip/Knee/Ankle: WFL. Strength: Core: fair minus, Hip: 4/5 throughout, Knee: 5/5, Ankle: 5/5. Flex: HS: severe, Gastroc: severe. Special Test: Slump: positive, SLR: positive, Dural Signs: positive. No significant changes to strength but endurance has improved Goal 1:: Patient will be I with HEP and progression Goal Progress: Progressing Goal 2:: Patient will stand for more than 5 minutes without requring a rest break Goal Progress: Not Progressing Goal 3:: Patient will maintain proper posture t/o tx session to demo increased core s/s Goal Progress: Not Progressing Plan: Discharge- return to MD for further evaluation If there are questions or concerns regarding this patient's physical therapy, please feel free to call me at [phone]. Thank you for the referral of this patient. Sincerely, Alexandra Nelson DPT
== END 2021-02-06 19:00 | disposition home or self-care (01) ==
LOC: PT 16:00
PROVIDERS: PCP Family Medicine Geriatric Medicine; Referring Provider Family Medicine Geriatric Medicine; Visit Provider Family Medicine Geriatric Medicine
DX: M51.9 Unspecified thoracic, thoracolumbar and lumbosacral intervertebral disc disorder (principal)
CPT/HCPCS: 97110; 97162; 97164

== ENCOUNTER → 2021-03-28 10:12 | Outpatient (CLI) | payer MEDICARE, SELFPAY ==
[2020-12-07 14:13] VITALS: BMI 40.1
[2021-03-28 12:36] LABS: Absolute Lymphocyte Count 2.34 X10^3/uL (0.83-4.51); Basophil# 0.06 X10^3/uL; Basophil% 0.7 % (0-1); Eosinophil# 0.09 X10^3/uL; Hematocrit 53.9 % (40-54); Hemoglobin 17.5 g/dL (13.0-16.5); Lymphocyte # 2.34 X10^3/ul (0.83-4.51); Lymphocyte % 25.5 % (19-41); Mean Corp Hgb Conc 32.5 g/dL (32-36); Mean Corpuscular Hgb 30.2 pg (27.0-32.0); Mean Corpuscular Volume 93.1 fL (80-94); Mean Platelet Vol. 10.8 fl (6.2-12.0); Monocyte# 0.68 X10^3/uL; Monocyte% 7.4 % (0-10); NRBC Flagged by Analyzer 0 % (0-5); Neutrophil % 65.2 % (47-70); Platelet Count 230 K/mm3 (150-450); RBC Distribution Width CV 13.9 % (11.6-14.6); RBC Distribution Width SD 47.8 fl (35.1-43.9); Red Blood Count 5.79 M/mm3 (4.6-6.2); White Blood Count 9.2 K/mm3 (4.4-11.0)
[2021-03-28 13:05] LABS: Vitamin D,25 Hydroxy 27.3 ng/mL
[2021-03-28 13:18] LABS: ALB/GLOB Ratio 1.1 RATIO (0.9-2.4); AST(SGOT) 24 U/L (15-37); Alanine Aminotransfer ALT/SGPT 40 U/L (16-61); Albumin, Serum 4.1 g/dL (3.2-5.0); Alkaline Phosphatase 109 U/L (45-117); Anion Gap 7 (5-15); BUN 25 mg/dL (7-18); BUN/Creat Ratio 19.7 RATIO (10-20); Calcium,Total 9.5 mg/dL (8.5-10.1); Chloride 103 mmol/L (98-107); Creatinine, Serum 1.27 mg/dL (0.70-1.30); EST Glomerular Filtration Rate 59 mL/min (>60); Est Glom Filt Rate - Afr Amer 71 mL/min (>60); Globulin 3.9 g/dL (2.2-4.2); Glucose 106 mg/dL (74-106); Sodium Level 139 mmol/L (136-145); Thyroid Stim Hormone (TSH) 7.24 uIU/mL (0.358-3.74)
== END ==
PROVIDERS: PCP Family Medicine Geriatric Medicine; Visit Provider Family Medicine Geriatric Medicine
DX: E55.9 Vitamin D deficiency, unspecified (principal); I10 Essential (primary) hypertension
CPT/HCPCS: 36415; 80053; 82306; 84443; 85025

== ENCOUNTER 2021-06-09 12:48 | Day surgery (SDC) | payer MEDICARE, SELFPAY ==
--- NOTE | 2021-06-05 12:01 | EKG12_ITS ---
Test Reason : PRE OP Blood Pressure : / mmHG Vent. Rate : 089 BPM Atrial Rate : 089 BPM P-R Int : 152 ms QRS Dur : 096 ms QT Int : 382 ms P-R-T Axes : 037 -58 072 degrees QTc Int : 464 ms Normal sinus rhythm Left anterior fascicular block Abnormal ECG Confirmed by JENNY SHAIKH, NEIL ([id number]), fashion editor GRACIELA TEIXEIRA ([id number]) on 06/06/2021 1:53:19 PM Referred By: Ean Marquez Confirmed By:NEIL ALVARADO MD
[2021-06-05 13:37] LABS: Thyroid Stim Hormone (TSH) 0.03 uIU/mL (0.358-3.74)
--- NOTE | 2021-06-09 | BLB_PTH ---
PATIENT: APARNA CARRERA LOC: [facility] [place] U#:[id number] AGE/SX: 75/M ROOM: RE06/09/[address]: Dr. Ean Marquez MD : 1945 BED: DIS: 06/09/2021 SPEC #: [id number] RECD: 06/09/21 15:47 STATUS: JOHN REIsabel #: [id number] GINA: 06/09/21 00:[address]: Ean Marquez DEPT: SURGICAL PATHOLOGY RECD BY: Flavio Nevarez ENTERED: 06/12/21 12:01 SP TYPE: TURB OTHR DR: Malia Primary Care Phys Tissues: A - Urinary bladder, NOS B - Prostate, NOS Procedures: Surgery Specimen Level IV Surgery Specimen Level V HEADER OPERATION: Cysto, TUR bladder, Olympus PRE-OP DIAGNOSIS: BPH, feeling of incomplete bladder emptying, neoplasm of bladder TISSUE SUBMITTED: A ? Bladder tumor, B ? Prostate chips MICROSCOPIC DIAGNOSIS A. Bladder tumor, TUR: Papillary urothelial carcinoma. See cancer summary in the comment section. B. Prostate chips, TUR: Benign prostatic hyperplasia, predominantly stromal type. Focal mild chronic inflammation. SJ:rg 06/13/2021 COMMENT BLADDER CANCER (TUR) SUMMARY Procedure: Transurethral resection of bladder (TURBT) Tumor site: Not specified Histologic type: Papillary urothelial carcinoma, noninvasive Histologic grade: Low grade (1/3) Tumor configuration: Papillary Muscularis propria presence: muscularis propria (detrusor muscle) is not identified. Lymphvascular invasion: Not identified Tumor extension: Noninvasive papillary carcinoma Additional pathologic findings: None. The specimen entirely consists of tumor. Underlying lamina propria is not identified. The above summary is in compliance with [employer] [place] [employer] (CAP) Cancer Protocols Checklist and [place] Joint Committee on Cancer (AJCC), Staging Manual, 8th Ed. Case has been reviewed in consultation with Dr. Long who concurs with the above diagnosis. IDC:AM MICROSCOPIC DESCRIPTION Slides are reviewed. GROSS DESCRIPTION A - Received in fixative is one container labeled with the patient's name and designated bladder tumor. The specimen consists of multiple irregular fragments of light barraza soft tissue that in aggregate measure 0.5 x 0.5 x 0.1 cm. The specimen is totally submitted in one cassette. B - Received is one container labeled with the patient's name and designated prostate tissue. The specimen consists of multiple irregular fragments of pink-barraza, rubbery, soft tissue that in aggregate weigh 1.6 gm and measure in aggregate 3 x 2 x 0.2 cm. The entire specimen is submitted in two cassettes. / AM:tali 06/12/21 TC:0 CPT: 08704, 22151
[2021-06-09 13:25] VITALS: BP 150/80; PULSE 102; RESP 18; TEMP 35.8; O2SAT 95; BMI 39.8
[2021-06-09] MEDS: Lactated Ringers 1,000 ML 100 ML IV (13:30)
--- NOTE | 2021-06-09 14:22 | DCINST_ITS ---
Discharge Instructions Diet Discharge Diet: No restrictions Activity Discharge Activity: May Not Drive (while taking narcotic pain medications.) Dressing / Incision Call your doctor if your incision/area has: Sudden Increased Bleeding, Increased Pain/ Swelling, Foul Smelling Discharge and Swelling at the incision site Call your doctor if you observe: Fever of 101 or Higher Suture Line Care: Avoid Pulling/Pushing and Avoid Pinching/Bending Cleanse incision/area with: Soap & Water and Keep Dressing Clean & Dry Catheter: Cortez to leg bag and Cortez to large bag Drain: [place] Follow Up Care Please Follow Up With: Ean Marquez MD When: Call [phone] for an appointment Test Results: Test results from this visit will be discussed in further detail at your follow-up appointment, if applicable. Discharge Plan Admission Primary Reason for Your Visit: remove bladder tumors and turp Attending Provider: Ean Marquez Primary Care Provider: Care Physician,No Primary Instructions Patient Instructions: TURP Home Recovery Discharge Orders/Prescriptions Prescriptions: New ciprofloxacin HCl [Cipro] 500 mg tablet 500 mg PO BID Qty: 14 RF: 0 oxycodone-acetaminophen 5-325 mg tablet 1 tab PO Q6H PRN (Reason: pain) 7 Days Qty: 10 RF: 0 Continued ibuprofen 200 mg capsule 400 mg PO TID-QID PRN (Reason: Pain) RF: 0 albuterol sulfate [ProAir HFA] 90 mcg/actuation HFA aerosol inhaler 2 puff INHALATION Q4H PRN (Reason: shortness of breath or wheezing) Qty: 18 RF: 6 dutasteride-tamsulosin 0.5-0.4 mg capsule, ER multiphase 24 hr 1 cap PO QHS RF: 0 levothyroxine 175 mcg capsule 175 mcg PO DAILY Qty: 90 RF: 3 calcium carbonate [Tums] 200 mg calcium (500 mg) tablet,chewable 200 mg PO BID PRN (Reason: per pt) RF: 0 polyethylene glycol 3350 [Miralax] 17 gram Powder In Packet 17 g PO DAILY RF: 0 losartan 50 mg tablet 50 mg PO DAILY RF: 0 losartan-hydrochlorothiazide 50-12.5 mg tablet 1 tab PO QHS RF: 0 furosemide 40 mg tablet 40 mg PO BID Qty: 180 RF: 3 Discontinued oxybutynin chloride 10 mg Tablet Extended Release 24hr 10 mg PO DAILY RF: 0 No Action (DME) Disability Placard See Rx Instructions .Route .MEDSUPPLY Qty: 1 RF: 0 Referrals / Follow Up: Ean Marquez MD [STAFF PHYSICIAN] - Care Physician,No Primary [Primary Care Provider] - Disposition Disposition (needs filled in before D/C Order can be placed): Home, Self Care
[2021-06-09] MEDS: Ciprofloxacin 400 MG/200 ML BAG 200 MG IV (14:41)
--- NOTE | 2021-06-09 15:21 | PCM.OPRPT ---
Problems Associated Problem List Diagnoses (1) BPH (benign prostatic hyperplasia): (2) Bladder tumor: Report of Operation Date of Procedure: 06/09/21 Pre-Operative Diagnosis: bladder tumor, bph with obstruction Post-Operative Diagnosis: same Surgery/Procedure Performed:: TURBT medium, TURP Description of Surgical Findings:: Patient presented to the hospital for treatment of a tumor that was found in the bladder with a very large bladder tumor. Patient understands is possible it may not be able to resect the entire tumor. Patient also understands is possible that the patient may need multiple procedures or more invasive procedures to cure him of this cancer. Patient was taken back to the operating room after smooth induction of anesthesia the patient was placed supine on the table. The patient was placed in dorsolithotomy position. The urethra and genitals prepped and draped in usual sterile fashion. I went into the bladder with a 30 degree lens and a cystoscope and identified the tumor the tumor was about 3 centimeters in size and occupying mostly the left trigone of the bladder. The right and left ureteral orifice were identified. The tumor was involved in the around the right ureteral orifice. I then placed the resectoscope and the bladder and resected the entire tumor down to the muscle. And then cauterized the resection base to obtained hemostasis. Patient was taken back to the operating room, timeout procedure was performed, he was identified and marked and placed on the operating room table. He underwent general anesthesia. He was placed in dorsolithotomy position. Penis and testicles were prepped and draped in usual sterile fashion. Went into the bladder using the visual obturator with a resectoscope. Once inside the bladder identified the right and left ureteral orifice. I then identified the prostate and the anatomy of the prostate. I marked out the area of the sphincter and the verumontanum was identified. I then proceeded with the prostate resection first resected the median lobe. And then resected the right lobe of the prostate. Then to resect the left lobe of the prostate. I then resected the apical tissue of the prostate. Made sure that there was no injury to the sphincter or the verumontanum was still intact. At the end of the resection all the chips were Ellik out of the bladder. I then identified the left and right ureteral orifice and these were confirmed to be in good position and effluxing and not injured. The resectoscope was removed, a 22 Bangladeshi catheter was placed into the bladder. And the urine was fairly light pink color and draining normally. He was taken back to the PACU in good condition. Surgeon: zahida Type of Anesthesia: General Drains: 20 fr hernandez Admit VTE Documentation VTE Present on Admission: No VTE Mechan Device Prophylaxis: SCD's VTE Pharm Prophylaxis ordered?: No
[2021-06-09 15:36] VITALS: BP 131/74; BP 150/80; PULSE 90; RESP 16; TEMP 36.6; O2SAT 95
[2021-06-09 15:45] VITALS: BP 120/70; BP 150/80; PULSE 91; RESP 16; O2SAT 92
[2021-06-09 15:55] VITALS: BP 119/58; BP 150/80; PULSE 80; RESP 16; O2SAT 93
[2021-06-09 16:09] VITALS: BP 122/69; BP 150/80; PULSE 88; RESP 16; TEMP 36.2; O2SAT 95
[2021-06-09 16:50] VITALS: BP 134/70; BP 150/80; PULSE 84; RESP 18; TEMP 35.8; O2SAT 95
== END 2021-06-09 17:45 | disposition home or self-care (01) ==
LOC: SDC 12:49 → AC 12:49
PROVIDERS: Anesthesiology; Referring Provider Urology; Visit Provider Urology
PROC: 0TBB8ZZ Excision of Bladder, Via Natural or Artificial Opening Endoscopic (ICD-10-PCS; CPT 52235; principal; 2021-06-09 14:45)
PROC: (CPT 52235; 2021-06-09 14:45)
DX: C67.0 Malignant neoplasm of trigone of bladder (principal); N40.1 Benign prostatic hyperplasia with lower urinary tract symptoms; N13.8 Other obstructive and reflux uropathy; R39.14 Feeling of incomplete bladder emptying; R35.0 Frequency of micturition; R39.15 Urgency of urination; I10 Essential (primary) hypertension; I44.4 Left anterior fascicular block; J43.9 Emphysema, unspecified; E78.00 Pure hypercholesterolemia, unspecified; M19.90 Unspecified osteoarthritis, unspecified site; E66.9 Obesity, unspecified; Z68.38 Body mass index [BMI] 38.0-38.9, adult; Z20.822 Contact with and (suspected) exposure to COVID-19; Z79.899 Other long term (current) drug therapy; Z87.891 Personal history of nicotine dependence
CPT/HCPCS: 00912; 52235; 52601; 36415; 84443; 87426; 88305; 88307; 93005; C9803; J7120; J0744; J2405

== ENCOUNTER → 2021-06-20 11:54 | Outpatient (CLI) | payer MEDICARE, SELFPAY ==
[2021-06-20 15:40] LABS: Free T3 3.8 pg/mL (2.18-3.98); T4 Free Direct 1.44 ng/dL (0.76-1.46); Thyroid Stim Hormone (TSH) 0.01 uIU/mL (0.358-3.74)
== END ==
PROVIDERS: PCP Internal Medicine; Referring Provider Internal Medicine; Visit Provider Internal Medicine
DX: E03.9 Hypothyroidism, unspecified (principal)
CPT/HCPCS: 36415; 84439; 84443; 84481

== ENCOUNTER 2021-07-27 12:02 | Emergency (ER) | payer MEDICARE, SELFPAY ==
[2021-07-27 12:02] VITALS: BP 130/75; PULSE 104; RESP 16; TEMP 35.8; O2SAT 96; BMI 39.7
--- NOTE | 2021-07-27 12:56 | CT_ITS ---
STUDY: CT ABDOMEN AND PELVIS WITHOUT CONTRAST REASON FOR EXAM: Male, 75 years old. Abdominal pain. RADIATION DOSAGE (If Supplied By Facility): CTDIvol = ( 23.92 ) mGy, DLP = ( 1518.36 ) mGycm TECHNIQUE: Transaxial images were obtained from the dome of the diaphragm to the symphysis pubis without oral contrast, and without intravenous contrast. Sagittal and coronal images were reconstructed. Individualized dose optimization techniques were used for this CT. COMPARISON: None. FINDINGS: Mild degree of increased markings at the lung bases suggestive of mild scarring and/or atelectasis. This likely more prominent at the left lung base. Coronary artery calcification. Normal liver. Normal gallbladder and extrahepatic biliary system. Normal spleen. Normal pancreas. Normal bilateral adrenal glands. Normal right kidney. There is a 2.4 cm x 2.1 cm hypodensity in the upper pole of the left kidney suggestive of a cyst. Normal visualized stomach. Normal small intestine. There are multiple colonic diverticula consistent with diverticulosis. The appendix is visualized and appears normal. There is diffuse atherosclerotic calcification of the abdominal aorta, without a demonstrated aneurysm. Normal inferior vena cava. Normal retroperitoneum. Normal urinary bladder. There is a small umbilical hernia containing fat. Small bilateral inguinal hernias containing fat. There are diffuse degenerative changes of the visualized lumbar spine. CT/Abdomen/Pelvis without Cont IMPRESSION: Small bilateral nodular areas containing fat. Small umbilical hernia contains fat. Findings suggestive of a 2.4 cm x 2.1 cm hypodensity in the left kidney. Sigmoid diverticulosis. Electronically Signed: Flo Ohara MD at 14:10 EST , Service support ,
[2021-07-27 13:25] LABS: Absolute Lymphocyte Count 2.71 X10^3/uL (0.83-4.51); Absolute Neutrophil Count 4.7 X10^3/uL (2.0-7.7); Basophil# 0.03 X10^3/uL; Basophil% 0.4 % (0-1); Eosinophil# 0.04 X10^3/uL; Eosinophils% 0.5 % (0-5); Hematocrit 48.3 % (40-54); Hemoglobin 16.2 g/dL (13.0-16.5); Lymphocyte # 2.71 X10^3/ul (0.83-4.51); Mean Corp Hgb Conc 33.5 g/dL (32-36); Mean Corpuscular Hgb 29.7 pg (27.0-32.0); Mean Corpuscular Volume 88.5 fL (80-94); Mean Platelet Vol. 10.5 fl (6.2-12.0); Monocyte# 0.67 X10^3/uL; Monocyte% 8.2 % (0-10); NRBC Flagged by Analyzer 0 % (0-5); Neutrophil # 4.74 X10^3/uL (2.7-7.7); Neutrophil % 57.7 % (47-70); Platelet Count 194 K/mm3 (150-450); RBC Distribution Width CV 13.5 % (11.6-14.6); RBC Distribution Width SD 43.4 fl (35.1-43.9); Red Blood Count 5.46 M/mm3 (4.6-6.2); White Blood Count 8.2 K/mm3 (4.4-11.0)
[2021-07-27 13:42] LABS: ALB/GLOB Ratio 0.8 RATIO (0.9-2.4); AST(SGOT) 23 U/L (15-37); Alanine Aminotransfer ALT/SGPT 33 U/L (16-61); Albumin, Serum 3.5 g/dL (3.2-5.0); Alkaline Phosphatase 92 U/L (45-117); Anion Gap 7 (5-15); BUN 22 mg/dL (7-18); BUN/Creat Ratio 21.2 RATIO (10-20); Calcium,Total 9.7 mg/dL (8.5-10.1); Chloride 100 mmol/L (98-107); Creatinine, Serum 1.04 mg/dL (0.70-1.30); EST Glomerular Filtration Rate 74 mL/min (>60); Est Glom Filt Rate - Afr Amer 89 mL/min (>60); Estimated Creatinine Clearance 63.37 ml/min; Globulin 4.2 g/dL (2.2-4.2); Glucose 132 mg/dL (74-106); Lipase 145 U/L (73-393); Potassium 3.5 mmol/L (3.5-5.1); Protein, Total 7.7 g/dL (6.4-8.2); Sodium Level 138 mmol/L (136-145)
--- NOTE | 2021-07-27 14:42 | EDS_ITS ---
HPI HPI - GI History of Present Illness Chief Complaint: Abd Pain Abdominal Pain/Flank Pain Onset: Days (3) Context: Gradual Onset Timing: Continuous Quality: Aching Location: LUQ and LLQ Worsened by: - (Pushing on left side of abdomen) Relieved by: Nothing Nausea/Vomiting/Emesis GI Symptom: Negative for Nausea and Vomiting Diarrhea/Melena/Hematochezia GI Symptom: Negative for Diarrhea, Melena and Hematochezia Associated Symptoms Associated Symptoms: Negative for Dysuria, Frequency and Hematuria Narrative Narrative: Patient presents with abdominal pain that began 3 days ago. Patient states the pain is over the left side of his abdomen. Patient states the pain is getting progressively worse. Patient states it lasts approximately 4 hours. Patient states it does not completely resolve but it eases up. Patient states the pain is worse whenever he pushes on the area. Patient describes his pain as aching. Patient denies any nausea or vomiting. Patient denies any diarrhea. Patient denies any melena or hematochezia. Patient denies any dysuria or hematuria. Patient denies any fevers or chills. PFSH [facility] Medical History Alcohol use Arthritis Asbestos exposure Asthma Back pain Bladder disease Bronchiectasis Bronchitis Cardiology follow-up encounter chipped bones Chronic cough COPD (chronic obstructive pulmonary disease) Cyst of right kidney Dyspnea Emphysema lung Emphysema, unspecified Essential hypertension Former smoker Gastric reflux GERD (gastroesophageal reflux disease) Groin mass High cholesterol History of echocardiogram History of edema History of hiatal hernia History of stress test Hyperlipidemia Hypertension Hypothyroidism Loss of hearing Lung nodule Migraine headache Neuropathy Nicotine dependence in remission Obesity (BMI 30-39.9) Obstructive sleep apnea Prostate disease Restless legs Shortness of breath on exertion Thyroid disease Torn cartilage Walker as ambulation aid Wears dentures Wears glasses Wears partial dentures Home Medications ibuprofen 200 mg capsule 400 mg PO TID-QID PRN cap 01/22/18 [History Last Taken Unknown] albuterol sulfate 90 mcg/actuation aerosol inhaler 2 puff INHALATION Q4H PRN #18 g 04/26/20 [Rx Last Taken Unknown] dutasteride 0.5 mg-tamsulosin ER 0.4 mg capsule ext.release 24hr mphas 1 cap PO QHS 05/02/20 [History Last Taken Unknown] furosemide 40 mg tablet 40 mg PO BID #180 tab 07/28/20 [Rx Last Taken Unknown] Disability Placard #1 ea 01/10/21 [Rx Last Taken Unknown] losartan 50 mg PO DAILY 06/02/21 [History Last Taken Unknown] polyethylene glycol 3350 [Miralax] 17 g PO DAILY 06/02/21 [History Last Taken Unknown] calcium carbonate 200 mg calcium (500 mg) chewable tablet 200 mg PO BID PRN 06/05/21 [History Last Taken Unknown] ciprofloxacin HCl [Cipro] 500 mg PO BID #14 tab 06/09/21 [Rx Last Taken Unknown] oxycodone-acetaminophen 1 tab PO Q6H PRN 7 Days #10 tab 06/09/21 [Rx Last Taken Unknown] levothyroxine 150 mcg tablet 150 mcg PO DAILY #90 tab 06/22/21 [Rx Last Taken Unknown] Allergy/AdvReac Type Severity Reaction Status Date / Time Penicillins Allergy Severe Anaphylaxis Verified 07/27/21 12:05 perfume Allergy Intermediate Other-triggers Verified 07/27/21 12:05 asthma attack perflutren [From Definity] Allergy Unknown Verified 07/27/21 12:05 vancomycin AdvReac Intermediate Other-htn Verified 07/27/21 12:05 atorvastatin [From Lipitor] AdvReac Mild Other-myalg Verified 07/27/21 12:05 ias dobutamine AdvReac Mild Other-muscle Verified 07/27/21 12:05 spasm fluticasone [From Flonase] AdvReac Mild Other-noseb Verified 07/27/21 12:05 leed rosuvastatin [From Crestor] AdvReac Mild Other-myalg Verified 07/27/21 12:05 ias simvastatin [From Zocor] AdvReac Mild Other-myalg Verified 07/27/21 12:05 ias eggs AdvReac Mild Other-water Uncoded 07/27/21 12:05 blisters Family History Father CAD (coronary artery disease) Surgical History finger surgery History of colonoscopy History of herniorrhaphy History of repair of rotator cuff History of right and left heart catheterization (09/28/16) pin placement S/P trigger finger release Social History Smoking Status: Former smoker pack-years: 168 how long ago did patient quit smokin, 4p/d second hand exposure: Yes alcohol intake: current alcohol intake frequency: holidays/special occasions only ROS ROS ED Constitutional Constitutional ED: Denies chills or fever(s) Eyes Eyes: Denies blurry vision or change in vision ENT ENT ED: Denies rhinorrhea or sore throat Cardiovascular Cardiovascular: Denies chest pain or palpitations Respiratory/Chest Respiratory/Chest: Denies cough or dyspnea Gastrointestinal Gastrointestinal: Reports abdominal pain; Denies nausea or vomiting Genitourinary Genitourinary ED: Denies dysuria or hematuria Musculoskeletal Musculoskeletal: Denies back pain or neck pain Integumentary Denies abscess or rash Neurologic Neurologic: Denies headache(s) or weakness Allergic/Immunologic Allergic/Immunologic ED: Denies mouth swelling or urticaria EXAM Physical Exam Const Vital Signs: 07/27/21 12:02 Temperature 96.5 F L Temperature Source Temporal Pulse Rate 104 H Respiratory Rate 16 Blood Pressure 130/75 H Blood Pressure Mean 93 Pulse Ox 96 Oxygen Delivery Method Room Air Positive well nourished, well developed and obese General Appearance ED: well developed Nutritional Appearance: obese HEENT Reports moist mucous membranes Neck supple and no JVD Resp normal respiratory effort and clear to auscultation bilaterally Cardio regular rate, regular rhythm and no murmurs GI normal to inspection, nondistended, normoactive bowel sounds and non-distended Auscultation: normoactive bowel sounds Palpation: soft and tender LLQ and LUQ; Negative for guarding or rebound tenderness present Extremity normal to inspection General Extremety ED: Negative for edema or tenderness General Extremity: Negative for edema Neuro oriented x3, CN's II-XII intact bilaterally and no sensory deficits noted Sensorium / Orientation: alert Motor Exam: strength 5/5 throughout Psych mental status grossly normal Skin no rashes or lesions noted MDM MDM MDM Narrative Medical decision making narrative: CBC and comprehensive metabolic profile were obtained and were within normal limits. Lipase was normal. CT scan of the abdomen pelvis was obtained. There is a small umbilical hernia that contains fat. There is a 2.4 x 2.1 cm left renal cyst. There is some diverticulosis but no evidence of diverticulitis. This was interpreted by the radiologist and reviewed by myself. Patient was advised of his findings. Patient was instructed to eat a bland diet and then advance to a regular diet as she feels better. Patient was instructed to follow-up with his primary care physician in 5 to 7 days. Patient understood and was agreeable with the plan. All questions were answered. Lab Data Attestation: I reviewed the patient's lab results. Labs: Laboratory Results - last 24 hr 07/27/21 07/27/21 13:16 13:16 WBC 8.2 RBC 5.46 Hgb 16.2 Hct 48.3 MCV 88.5 MCH 29.7 MCHC 33.5 RDW Std Deviation 43.4 RDW Coeff of Andrei 13.5 Plt Count 194 MPV 10.5 Immature Gran % (Auto) 0.200 Neut % (Auto) 57.7 Lymph % (Auto) 33.0 Summers % (Auto) 8.2 Eos % (Auto) 0.5 Baso % (Auto) 0.4 Absolute Neuts (auto) 4.7 Absolute Lymphs (auto) 2.71 Nucleated RBC % 0 Sodium 138 Potassium 3.5 Chloride 100 Carbon Dioxide 31.0 Anion Gap 7 BUN 22 H Creatinine 1.04 Estim Creat Clear Calc 63.37 Est GFR (MDRD) Af Amer 89 Est GFR (MDRD) Non-Af 74 BUN/Creatinine Ratio 21.2 H Glucose 132 H Calcium 9.7 Total Bilirubin 0.70 AST 23 ALT 33 Alkaline Phosphatase 92 Total Protein 7.7 Albumin 3.5 Globulin 4.2 Albumin/Globulin Ratio 0.8 L Lipase 145 Radiography Diagnostic Testing: Clinical Impression(s) from Imaging Studies Abdomen/Pelvis CT 07/27/21 12:56 IMPRESSION: Small bilateral nodular areas containing fat. Small umbilical hernia contains fat. Findings suggestive of a 2.4 cm x 2.1 cm hypodensity in the left kidney. Sigmoid diverticulosis. Electronically Signed: Flo Ohara MD at 14:10 EST , Service support , Discharge Plan Triage Chief Complaint: Abd Pain ED Provider: Clyaton Faye Dx/Rx/DC Orders Clinical Impression: Abdominal pain in male Instructions: ED Abdominal Pain Unkn Cause Male... Prescriptions: No Action ibuprofen 200 mg capsule 400 mg PO TID-QID PRN (Reason: Pain) RF: 0 albuterol sulfate [ProAir HFA] 90 mcg/actuation HFA aerosol inhaler 2 puff INHALATION Q4H PRN (Reason: shortness of breath or wheezing) Qty: 18 RF: 6 dutasteride-tamsulosin 0.5-0.4 mg capsule, ER multiphase 24 hr 1 cap PO QHS RF: 0 calcium carbonate [Tums] 200 mg calcium (500 mg) tablet,chewable 200 mg PO BID PRN (Reason: per pt) RF: 0 polyethylene glycol 3350 [Miralax] 17 gram Powder In Packet 17 g PO DAILY RF: 0 losartan 50 mg tablet 50 mg PO DAILY RF: 0 ciprofloxacin HCl [Cipro] 500 mg tablet 500 mg PO BID Qty: 14 RF: 0 oxycodone-acetaminophen 5-325 mg tablet 1 tab PO Q6H PRN (Reason: pain) 7 Days Qty: 10 RF: 0 furosemide 40 mg tablet 40 mg PO BID Qty: 180 RF: 3 (DME) Disability Placard See Rx Instructions .Route .MEDSUPPLY Qty: 1 RF: 0 levothyroxine 150 mcg tablet 150 mcg PO DAILY Qty: 90 RF: 1 Primary Care Provider: Melina Agosto Referrals: Melina Agosto MD [Primary Care Provider] - 3-5 Days Disposition Disposition: Home, Self Care
[2021-07-27 14:56] VITALS: BP 124/77; PULSE 87; RESP 16; O2SAT 98
== END 2021-07-27 14:56 | disposition home or self-care (01) ==
PROVIDERS: Emergency Provider Emergency Medicine; PCP Internal Medicine
DX: K57.30 Diverticulosis of large intestine without perforation or abscess without bleeding (principal); K42.9 Umbilical hernia without obstruction or gangrene; N28.1 Cyst of kidney, acquired; R10.12 Left upper quadrant pain; R10.32 Left lower quadrant pain; I10 Essential (primary) hypertension; J43.9 Emphysema, unspecified; E78.00 Pure hypercholesterolemia, unspecified; M19.90 Unspecified osteoarthritis, unspecified site; E03.9 Hypothyroidism, unspecified; E66.9 Obesity, unspecified; Z68.39 Body mass index [BMI] 39.0-39.9, adult; Z79.899 Other long term (current) drug therapy; Z87.891 Personal history of nicotine dependence
CPT/HCPCS: 74176; 80053; 83690; 85025; 99284

== ENCOUNTER → 2021-08-03 09:12 | Outpatient (CLI) | payer MEDICARE, SELFPAY ==
[2021-08-03 12:21] LABS: Erythrocyte Sedimentation Rate 22 mm/hr (0-20)
[2021-08-03 12:31] LABS: Absolute Lymphocyte Count 3.13 X10^3/uL (0.83-4.51); Absolute Neutrophil Count 4.9 X10^3/uL (2.0-7.7); Basophil# 0.04 X10^3/uL; Basophil% 0.4 % (0-1); Eosinophil# 0.17 X10^3/uL; Eosinophils% 1.9 % (0-5); Hemoglobin 16.2 g/dL (13.0-16.5); Lymphocyte # 3.13 X10^3/ul (0.83-4.51); Lymphocyte % 34.5 % (19-41); Mean Corp Hgb Conc 32.4 g/dL (32-36); Mean Corpuscular Hgb 29.1 pg (27.0-32.0); Mean Corpuscular Volume 89.8 fL (80-94); Mean Platelet Vol. 10.3 fl (6.2-12.0); Monocyte# 0.83 X10^3/uL; Monocyte% 9.1 % (0-10); NRBC Flagged by Analyzer 0 % (0-5); Neutrophil # 4.88 X10^3/uL (2.7-7.7); Neutrophil % 53.8 % (47-70); Platelet Count 205 K/mm3 (150-450); RBC Distribution Width CV 13.4 % (11.6-14.6); RBC Distribution Width SD 44.2 fl (35.1-43.9); Red Blood Count 5.57 M/mm3 (4.6-6.2); White Blood Count 9.1 K/mm3 (4.4-11.0)
[2021-08-03 12:44] LABS: ALB/GLOB Ratio 0.8 RATIO (0.9-2.4); AST(SGOT) 24 U/L (15-37); Alanine Aminotransfer ALT/SGPT 38 U/L (16-61); Albumin, Serum 3.4 g/dL (3.2-5.0); Alkaline Phosphatase 94 U/L (45-117); Anion Gap 9 (5-15); BUN 21 mg/dL (7-18); BUN/Creat Ratio 20.8 RATIO (10-20); Calcium,Total 9.3 mg/dL (8.5-10.1); Chloride 99 mmol/L (98-107); Creatinine, Serum 1.01 mg/dL (0.70-1.30); EST Glomerular Filtration Rate 76 mL/min (>60); Est Glom Filt Rate - Afr Amer 92 mL/min (>60); Free T3 3.1 pg/mL (2.18-3.98); Globulin 4.4 g/dL (2.2-4.2); Glucose 112 mg/dL (74-106); Potassium 3.5 mmol/L (3.5-5.1); Protein, Total 7.8 g/dL (6.4-8.2); Sodium Level 136 mmol/L (136-145); T4 Free Direct 1.33 ng/dL (0.76-1.46)
== END ==
PROVIDERS: PCP Internal Medicine; Referring Provider Internal Medicine; Visit Provider Internal Medicine
DX: E78.5 Hyperlipidemia, unspecified (principal); E03.9 Hypothyroidism, unspecified; R10.9 Unspecified abdominal pain
CPT/HCPCS: 36415; 80053; 84439; 84443; 84481; 85025; 85652

== ENCOUNTER 2021-10-24 11:13 | Outpatient (CLI) | payer MEDICARE, SELFPAY ==
[2021-10-24 13:08] LABS: Free T3 2.7 pg/mL (2.18-3.98); T4 Free Direct 1.34 ng/dL (0.76-1.46); Thyroid Stim Hormone (TSH) 0.19 uIU/mL (0.358-3.74)
== END 2021-10-24 23:59 | disposition home or self-care (01) ==
LOC: BIMLAB 11:13
PROVIDERS: PCP Internal Medicine; Referring Provider Internal Medicine; Visit Provider Internal Medicine
DX: E03.9 Hypothyroidism, unspecified (principal)
CPT/HCPCS: 36415; 84439; 84443; 84481

== ENCOUNTER 2021-12-22 11:19 | Outpatient (CLI) | payer MEDICARE, SELFPAY ==
[2021-12-22 12:55] LABS: Free T3 2.7 pg/mL (2.18-3.98); T4 Free Direct 1.01 ng/dL (0.76-1.46); Thyroid Stim Hormone (TSH) 0.56 uIU/mL (0.358-3.74)
== END 2021-12-22 23:59 | disposition home or self-care (01) ==
LOC: BIMLAB 11:20
PROVIDERS: PCP Internal Medicine; Referring Provider Internal Medicine; Visit Provider Internal Medicine
DX: E03.9 Hypothyroidism, unspecified (principal)
CPT/HCPCS: 36415; 84439; 84443; 84481

== ENCOUNTER → 2022-02-28 | Outpatient (CLI) | payer MEDICARE, SELFPAY ==
--- NOTE | 2022-02-28 10:46 | NEURO ---
NCS and/or EMG Patient Report Ordering Doctor: Melina Agosto DATE OF SERVICE: 02/28/22 Porfirio presents for electrodiagnostic testing of the lower limbs. He reports shooting pain in the plantar aspect of both feet with intermittent numbness. Electrodiagnostic findings: Peroneal motor nerve demonstrates normal distal latency, amplitude and conduction velocity on the left side. Right peroneal motor response demonstrates decreased amplitude with borderline reduced conduction velocity. Tibial amplitudes are reduced bilaterally with normal latencies and conduction velocities. Prolonged tibial and peroneal F waves bilaterally. Prolonged H reflex bilaterally. Sensory responses are not obtainable. On needle EMG, muscles tested in the lower limbs showed no evidence of denervation with normal motor unit action potentials. Electrodiagnostic impression: This is an abnormal study in the lower limbs 1. 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 There is evidence of axonal loss. 2. No electrodiagnostic evidence is noted for lumbosacral radiculopathy.
== END | disposition home or self-care (01) ==
LOC: PSN 06:36
PROVIDERS: PCP Internal Medicine; Visit Provider Internal Medicine
DX: R20.0 Anesthesia of skin (principal); R20.2 Paresthesia of skin
CPT/HCPCS: 95886; 95912

== ENCOUNTER → 2022-04-05 | Outpatient (CLI) | payer MEDICARE, SELFPAY ==
--- NOTE | 2022-04-05 10:18 | RAD_ITS ---
EXAM: XR CHEST, 2 VIEWS CLINICAL INDICATION: FOMRAN TECHNIQUE: Frontal and lateral views of the chest. This report was created using [employer] report generation technology. COMPARISON: 09/20/2016 FINDINGS: LUNGS AND PLEURAL SPACES: Unremarkable. No consolidation or edema. No pneumothorax. No effusion. HEART: Unremarkable. Cardiac silhouette not enlarged. MEDIASTINUM: Central airways and mediastinal contour are unremarkable. BONES/JOINTS: Unremarkable. SOFT TISSUES: Unremarkable. RAD/Chest PA and Lateral IMPRESSION: No radiographic evidence of acute cardiopulmonary disease. Electronically Signed: Kyle Garcia MD at 2:19 EDT ,
[2022-04-05 10:45] LABS: Absolute Lymphocyte Count 2.46 X10^3/uL (0.83-4.51); Absolute Neutrophil Count 5.1 X10^3/uL (2.0-7.7); Basophil# 0.04 X10^3/uL; Basophil% 0.5 % (0-1); Eosinophils% 2.4 % (0-5); Hematocrit 50.9 % (40-54); Hemoglobin 16.8 g/dL (13.0-16.5); Lymphocyte # 2.46 X10^3/ul (0.83-4.51); Mean Corpuscular Hgb 30.6 pg (27.0-32.0); Mean Corpuscular Volume 92.7 fL (80-94); Mean Platelet Vol. 10.5 fl (6.2-12.0); Monocyte% 8.3 % (0-10); NRBC Flagged by Analyzer 0 % (0-5); Neutrophil # 5.05 X10^3/uL (2.7-7.7); Neutrophil % 59.6 % (47-70); Platelet Count 154 K/mm3 (150-450); RBC Distribution Width CV 13.3 % (11.6-14.6); RBC Distribution Width SD 45.7 fl (35.1-43.9); Red Blood Count 5.49 M/mm3 (4.6-6.2); White Blood Count 8.5 K/mm3 (4.4-11.0)
[2022-04-05 11:14] LABS: BNP,B-Type NATRIURETIC PEPTIDE 9.9 pg/mL (0-100)
[2022-04-05 11:18] LABS: Vitamin B12 541 pg/mL (211-911)
[2022-04-05 11:26] LABS: ALB/GLOB Ratio 0.9 RATIO (0.9-2.4); AST(SGOT) 28 U/L (15-37); Alanine Aminotransfer ALT/SGPT 35 U/L (16-61); Albumin, Serum 3.5 g/dL (3.2-5.0); Alkaline Phosphatase 92 U/L (45-117); Anion Gap 8 (5-15); BUN 15 mg/dL (7-18); BUN/Creat Ratio 14.2 RATIO (10-20); Calcium,Total 9.1 mg/dL (8.5-10.1); Chloride 105 mmol/L (98-107); Cholesterol 194 mg/dL (200); Creatinine, Serum 1.06 mg/dL (0.70-1.30); EST Glomerular Filtration Rate 72 mL/min (>60); Est Glom Filt Rate - Afr Amer 87 mL/min (>60); Free T3 2.5 pg/mL (2.18-3.98); Globulin 3.7 g/dL (2.2-4.2); Glucose 144 mg/dL (74-106); High Density Lipoprotein 41 mg/dL; Iron 77 ug/dL (65-175); Iron Binding Capacity,Total 299 ug/dL (250-450); PERCENT IRON SATURATION 25.8 % (15.0-55.0); Potassium 3.9 mmol/L (3.5-5.1); Protein, Total 7.2 g/dL (6.4-8.2); Sodium Level 140 mmol/L (136-145); T4 Free Direct 1.05 ng/dL (0.76-1.46); Thyroid Stim Hormone (TSH) 1.74 uIU/mL (0.358-3.74); Triglycerides 191 mg/dL; Very Low Density Lipoprotein 38 mg/dL (5-40)
== END | disposition home or self-care (01) ==
PROVIDERS: Physician Assistant Medical; PCP Internal Medicine; Visit Provider Internal Medicine
DX: I11.0 Hypertensive heart disease with heart failure (principal); I50.30 Unspecified diastolic (congestive) heart failure; R06.09 Other forms of dyspnea; E78.5 Hyperlipidemia, unspecified; G47.33 Obstructive sleep apnea (adult) (pediatric); F17.201 Nicotine dependence, unspecified, in remission; G62.9 Polyneuropathy, unspecified; E03.9 Hypothyroidism, unspecified; E66.9 Obesity, unspecified; N40.0 Benign prostatic hyperplasia without lower urinary tract symptoms; E55.9 Vitamin D deficiency, unspecified
CPT/HCPCS: 36415; 71046; 80053; 80061; 82306; 82607; 83540; 83550; 83735; 83880; 84439; 84443; 84481; 85025

== ENCOUNTER 2022-04-27 08:33 | Day surgery (SDC) | payer MEDICARE, SELFPAY ==
[2022-04-27] VITALS (7 sets, daily range): BP systolic 117–158; BP diastolic 63–93; PULSE 72–89; RESP 16–18; TEMP 36.1–36.4; O2SAT 92–94; BMI 41.0
--- NOTE | 2022-04-27 | BLB_PTH ---
PATIENT: APARNA CARRERA [place] [facility] [place] U[place][id number] AGE/SX: 76/M ROOM: RE04/27/[address]: Dr. Ean Marquez MD : 1945 BED: DIS: 04/27/2022 SPEC #: [id number] RECD: 04/27/22 13:48 STATUS: JOHN REIsabel #: [id number] GINA: 04/27/22 00:[address]: Ean Marquez DEPT: SURGICAL PATHOLOGY RECD BY: Flavio Nevarez ENTERED: 04/27/22 13:49 SP TYPE: TURB OTHR DR: Dr. Melina Agosto MD Tissues: Urinary bladder, NOS Procedures: Surgery Specimen Level V HEADER OPERATION: Cysto, transurethral resection bladder tumor PRE-OP DIAGNOSIS: Bladder tumor TISSUE SUBMITTED: Bladder tumor MICROSCOPIC DIAGNOSIS Bladder tumor, TUR: Noninvasive papillary urothelial carcinoma. See comment. STEFFI:tali 04/30/2022 COMMENT BLADDER CANCER (TUR) SUMMARY Procedure: Transurethral resection of bladder (TURBT) Tumor site: not specified. Histologic type: Papillary urothelial carcinoma, noninvasive Associated epithelial lesions: None identified Histologic grade: 1/3 Tumor configuration: Papillary Muscularis propria presence: muscularis propria (detrusor muscle) is not present. Lymphvascular invasion: not identified. Tumor extension: noninvasive papillary carcinoma. Additional pathologic findings: none The above summary is in compliance with [employer] (CAP) Cancer Protocols Checklist and [place] Joint [employer] on Cancer (AJCC), Staging Manual, 8th Ed. Please also make reference to the previous specimen [id number], Bladder tumor, TUR with diagnosis of papillary urothelial carcinoma. MICROSCOPIC DESCRIPTION Slides are reviewed. GROSS DESCRIPTION Received in fixative is one container labeled with the patient's name and designated bladder tumor. The specimen consists of one irregular fragment of light barraza soft tissue that measures 0.4 x 0.1 x 0.1 cm. The specimen is totally submitted in one cassette. / STEFFI:tali 04/27/2022 TC:0 CPT: 79940
[2022-04-27] MEDS: Lactated Ringers 1,000 ML 15 ML IV ×2 (10:00→11:51)
[2022-04-27] MEDS: Ciprofloxacin 400 MG/200 ML BAG 200 MG IV (10:40)
--- NOTE | 2022-04-27 11:08 | PCM.HP.STD ---
HPI - General General Date of Service: 04/27/22 HPI Narrative APARNA CARRERA, is a 76 M who presents for resection of bladder tumor [facility] Medical History (Updated 04/20/22 @ 11:08 by Sydnie Cazares) Alcohol use Ambulates with cane Arthritis Asbestos exposure Asthma Back pain Bladder disease Bronchiectasis Bronchitis Cardiology follow-up encounter chipped bones Chronic cough COPD (chronic obstructive pulmonary disease) Cyst of right kidney Dietary restriction Dyspnea Emphysema lung Emphysema, unspecified Essential hypertension Former smoker Gastric reflux GERD (gastroesophageal reflux disease) Groin mass High cholesterol History of CHF (congestive heart failure) History of diverticulitis History of echocardiogram History of edema History of hiatal hernia History of stress test Hyperlipidemia Hypertension Hypothyroidism Loss of hearing Lung nodule Migraine headache Neuropathy Nicotine dependence in remission Obesity (BMI 30-39.9) Obstructive sleep apnea On home oxygen therapy Prostate disease Restless legs Shortness of breath on exertion Thyroid disease Torn cartilage Uses wheelchair Walker as ambulation aid Wears dentures Wears glasses Wears partial dentures Home Medications ibuprofen 200 mg capsule 400 mg PO TID-QID PRN Pain 01/22/18 [History Last Taken Unknown] albuterol sulfate 90 mcg/actuation aerosol inhaler (ProAir HFA) 2 puff inhalation Q4H PRN shortness of breath or wheezing #18 grams 04/26/20 [Rx Last Taken Unknown] dutasteride 0.5 mg-tamsulosin ER 0.4 mg capsule ext.release 24hr mphas 1 cap PO QHS 05/02/20 [History Last Taken Unknown] polyethylene glycol 3350 17 gram oral powder packet (Miralax) 17 g PO DAILY 06/02/21 [History Last Taken Unknown] calcium carbonate 200 mg calcium (500 mg) chewable tablet (Tums) 200 mg PO BID PRN per pt 06/05/21 [History Last Taken Unknown] butter balm 1 applic topical DAILY PRN rough spots 08/03/21 [History Last Taken Unknown] oxybutynin chloride 10 mg tablet,extended release 24 hr 10 mg PO DAILY #90 tabs 02/04/22 [Rx Last Taken Unknown] furosemide 40 mg tablet 40 mg PO DAILY 04/03/22 [History Last Taken Unknown] levothyroxine 137 mcg tablet 137 mcg PO DAILY #90 tabs 04/18/22 [Rx Last Taken 04/27/22] albuterol sulfate 90 mcg/actuation aerosol inhaler (ProAir HFA) 2 puff inhalation Q6H PRN SOB 04/20/22 [History Last Taken Unknown] losartan 50 mg tablet 50 mg PO DAILY 04/20/22 [History Last Taken Unknown] losartan 50 mg-hydrochlorothiazide 12.5 mg tablet 1 tab PO QHS 04/20/22 [History Last Taken Unknown] ciprofloxacin HCl 500 mg tablet (Cipro) 500 mg PO BID #6 tabs 04/27/22 [Rx Last Taken Unknown] ibuprofen 600 mg tablet 600 mg PO Q6H PRN fever or pain #20 tabs 04/27/22 [Rx Last Taken Unknown] Allergy/AdvReac Type Severity Reaction Status Date / Time Penicillins Allergy Severe Anaphylaxis Verified 04/27/22 09:07 perfume Allergy Intermediate Other-triggers Verified 04/27/22 09:07 asthma attack perflutren [From Definity] Allergy Unknown Verified 04/27/22 09:07 vancomycin AdvReac Intermediate Other-htn Verified 04/27/22 09:07 atorvastatin [From Lipitor] AdvReac Mild Other-myalg Verified 04/27/22 09:07 ias dobutamine AdvReac Mild Other-muscle Verified 04/27/22 09:07 spasm fluticasone [From Flonase] AdvReac Mild Other-noseb Verified 04/27/22 09:07 leed rosuvastatin [From Crestor] AdvReac Mild Other-myalg Verified 04/27/22 09:07 ias simvastatin [From Zocor] AdvReac Mild Other-myalg Verified 04/27/22 09:07 ias eggs AdvReac Mild Other-water Uncoded 04/27/22 09:07 blisters Family History Father CAD (coronary artery disease) Surgical History finger surgery History of colonoscopy History of herniorrhaphy History of repair of rotator cuff History of right and left heart catheterization (09/28/16) pin placement S/P trigger finger release Social History Smoking Status: Former smoker pack-years: 168 how long ago did patient quit smokin, 4p/d second hand exposure: Yes alcohol intake: current alcohol intake frequency: holidays/special occasions only Vital Signs Vital Signs Vital Signs: 04/27/22 09:01 04/27/22 09:01 Temperature 97.0 F L Temperature Source Temporal Pulse Rate 88 Respiratory Rate 18 Respiratory Pattern Normal Blood Pressure 144/77 H Blood Pressure Mean 99 Blood Pressure Source Monitor Blood Pressure Position Semi-Fowlers Blood Pressure Location Left Arm Pulse Ox 93 Oxygen Delivery Method Room Air Weight Weight: 129.727 kg Body Mass Index (BMI) 41.0
--- NOTE | 2022-04-27 11:09 | OP.PCM_ITS ---
Report of Operation Date of Procedure: 04/27/22 Pre-Operative Diagnosis: Bladder tumor history of bladder cancer Surgery/Procedure Performed:: Transurethral resection of bladder tumor Description of Surgical Findings:: Patient presented to the hospital for treatment of a tumor that was found in the bladder with a very large bladder tumor. Patient understands is possible it may not be able to resect the entire tumor. Patient also understands is possible that the patient may need multiple procedures or more invasive procedures to cure him of this cancer. Patient was taken back to the operating room after smooth induction of anesthesia the patient was placed supine on the table. The patient was placed in dorsolithotomy position. The urethra and genitals prepped and draped in usual sterile fashion. I went into the bladder with a 30 degree lens and a c ystoscope was performed and identified the tumor the tumors which was about 2.5 centimeters in size and occupying mostly the trigone of the bladder. I then switched over to the 70 degree lens and inspected the rest of the bladder with a 70 degree lens to make sure there is no other tumors in the bladder and to identify all the tumor locations. The right and left ureteral orifice were identified. The right ureteral orfice had been resected back the left ureteral orfice was normal. The tumor was not involved in the right ureteral orifice but very close to it. I then resected the tumor and started superficially shaving small little pieces working my way to the base of the tumor. As I went along I then cauterize any bleeders that were encountered during the resection. The tumor pieces were then flushed out of the bladder and continued resecting the tumor until finally I got down to the base of the tumor and the muscle of the bladder was then identified a small little bit of muscle was taken with the resection. I then cauterized extensively the tumor base and also circumferentially around where the tumor was. Again we made sure to evacuate all the pieces out the bladder. I made sure there was no more bleeding from the base of the bladder and then over the tumor pieces were then evacuated out and sent off as a specimen. After the resection of the entire tumor was completed then treatment with Mitomycin-C was performed. We then placed the catheter in the bladder and the patient was taken back to the PACU in stable condition. Surgeon: Ean Marquez
--- NOTE | 2022-04-27 11:09 | DCINST_ITS ---
Discharge Instructions Diet Discharge Diet: No restrictions and Light diet - advance as tolerated Activity Discharge Activity: Return to Normal Activity and No Restrictions Follow Up Care Please Follow Up With: Ean Marquez MD When: 2 weeks Test Results: Test results from this visit will be discussed in further detail at your follow- up appointment, if applicable. Discharge Plan Admission Primary Reason for Your Visit: resection of bladder tumor Attending Provider: Ean Marquez Primary Care Provider: Melina Agosto Discharge Orders/Prescriptions Prescriptions: New ciprofloxacin HCl [Cipro] 500 mg tablet 500 mg PO BID Qty: 6 0RF ibuprofen 600 mg tablet 600 mg PO Q6H PRN (Reason: fever or pain) Qty: 20 0RF Continued ibuprofen 200 mg capsule 400 mg PO TID-QID PRN (Reason: Pain) albuterol sulfate [ProAir HFA] 90 mcg/actuation HFA aerosol inhaler 2 puff INHALATION Q4H PRN (Reason: shortness of breath or wheezing) Qty: 18 6RF dutasteride-tamsulosin 0.5-0.4 mg capsule, ER multiphase 24 hr 1 cap PO QHS calcium carbonate [Tums] 200 mg calcium (500 mg) tablet,chewable 200 mg PO BID PRN (Reason: per pt) furosemide 40 mg tablet 40 mg PO DAILY butter balm 1 applic topical DAILY PRN (Reason: rough spots) polyethylene glycol 3350 [Miralax] 17 gram Powder In Packet 17 g PO DAILY losartan 50 mg tablet 50 mg PO DAILY albuterol sulfate [ProAir HFA] 90 mcg/actuation Hfa Aerosol Inhaler 2 puff INHALATION Q6H PRN (Reason: SOB) losartan-hydrochlorothiazide 50-12.5 mg tablet 1 tab PO QHS Label Comments: take 1 tablet by mouth once daily oxybutynin chloride 10 mg tablet extended release 24hr 10 mg PO DAILY Qty: 90 1RF levothyroxine 137 mcg tablet 137 mcg PO DAILY Qty: 90 3RF Referrals / Follow Up: Ean Marquez MD [Med Staff - Active Staff] - Melina Agosto MD [Primary Care Provider] - Disposition Disposition (needs filled in before D/C Order can be placed): Home, Self Care
[2022-04-27] MEDS: Ketorolac 15 MG/ML Vial IV (11:51)
== END 2022-04-27 12:58 | disposition home or self-care (01) ==
LOC: SDC 08:34 → AC 08:36
PROVIDERS: PCP Internal Medicine; Referring Provider Urology; Visit Provider Urology
PROC: 0T5B8ZZ Destruction of Bladder, Via Natural or Artificial Opening Endoscopic (ICD-10-PCS; CPT 51720; principal; 2022-04-27 10:45)
DX: C67.0 Malignant neoplasm of trigone of bladder (principal); J43.9 Emphysema, unspecified; I11.0 Hypertensive heart disease with heart failure; I50.9 Heart failure, unspecified; Z68.41 Body mass index [BMI] 40.0-44.9, adult; N40.1 Benign prostatic hyperplasia with lower urinary tract symptoms; N13.8 Other obstructive and reflux uropathy; E78.00 Pure hypercholesterolemia, unspecified; E03.9 Hypothyroidism, unspecified; E66.9 Obesity, unspecified; Z99.81 Dependence on supplemental oxygen; Z79.899 Other long term (current) drug therapy; Z87.891 Personal history of nicotine dependence
CPT/HCPCS: 52235; 00912; 88307; J7120; J0744; J2405; J3490; J9280

== ENCOUNTER → 2022-10-29 | Outpatient (CLI) | payer MEDICARE, SELFPAY ==
[2022-10-29 13:21] LABS: Absolute Neutrophil Count 3.2 X10^3/uL (2.0-7.7); Basophil# 0.04 X10^3/uL; Basophil% 0.6 % (0-1); Eosinophil# 0.19 X10^3/uL; Hematocrit 49.2 % (40-54); Hemoglobin 16.3 g/dL (13.0-16.5); Mean Corp Hgb Conc 33.1 g/dL (32-36); Mean Corpuscular Hgb 30.8 pg (27.0-32.0); Mean Corpuscular Volume 92.8 fL (80-94); Mean Platelet Vol. 10.3 fl (6.2-12.0); Monocyte# 0.68 X10^3/uL; Monocyte% 10.6 % (0-10); NRBC Flagged by Analyzer 0 % (0-5); Neutrophil # 3.17 X10^3/uL (2.7-7.7); Neutrophil % 49.6 % (47-70); Platelet Count 155 K/mm3 (150-450); RBC Distribution Width CV 13.2 % (11.6-14.6); RBC Distribution Width SD 45.2 fl (35.1-43.9); White Blood Count 6.4 K/mm3 (4.4-11.0)
[2022-10-29 13:50] LABS: Vitamin D,25 Hydroxy 28.5 ng/mL
[2022-10-29 13:59] LABS: Hemoglobin A1c 5.9 % (3.8-5.6)
[2022-10-29 14:00] LABS: ALB/GLOB Ratio 0.9 RATIO (0.9-2.4); AST(SGOT) 31 U/L (15-37); Alanine Aminotransfer ALT/SGPT 42 U/L (16-61); Albumin, Serum 3.7 g/dL (3.2-5.0); Alkaline Phosphatase 95 U/L (45-117); Anion Gap 5 (5-15); BUN 15 mg/dL (7-18); BUN/Creat Ratio 15.2 RATIO (10-20); Calcium,Total 9.3 mg/dL (8.5-10.1); Chloride 104 mmol/L (98-107); Cholesterol 208 mg/dL (200); Creatinine, Serum 0.99 mg/dL (0.70-1.30); EST Glomerular Filtration Rate 78 mL/min (>60); Est Glom Filt Rate - Afr Amer 95 mL/min (>60); Globulin 3.9 g/dL (2.2-4.2); Glucose 128 mg/dL (74-106); High Density Lipoprotein 41 mg/dL; Potassium 4.1 mmol/L (3.5-5.1); Protein, Total 7.6 g/dL (6.4-8.2); Sodium Level 139 mmol/L (136-145); Thyroid Stim Hormone (TSH) 0.68 uIU/mL (0.358-3.74); Triglycerides 234 mg/dL; Very Low Density Lipoprotein 47 mg/dL (5-40)
== END | disposition home or self-care (01) ==
LOC: LAB 12:52
PROVIDERS: PCP Internal Medicine; Referring Provider Internal Medicine; Visit Provider Internal Medicine
DX: F17.201 Nicotine dependence, unspecified, in remission (principal); E66.01 Morbid (severe) obesity due to excess calories; R73.9 Hyperglycemia, unspecified; N40.0 Benign prostatic hyperplasia without lower urinary tract symptoms; E78.5 Hyperlipidemia, unspecified; I10 Essential (primary) hypertension; E55.9 Vitamin D deficiency, unspecified; Z12.5 Encounter for screening for malignant neoplasm of prostate
CPT/HCPCS: 36415; 80053; 80061; 82306; 83036; 84153; 84443; 85025; G0103

== ENCOUNTER → 2022-12-04 | Outpatient (CLI) | payer MEDICARE, SELFPAY ==
--- NOTE | 2022-12-03 | LES_PTH ---
PATIENT: APARNA CARRERA LOC: [facility] U#:[id number] AGE/SX: 77/M ROOM: RE12/04/[address]: Dr. Sergio Pack MD : 1945 BED: DIS: 12/04/2022 SPEC #: [id number] RECD: 12/04/22 09:53 STATUS: JOHN REIsabel #: [id number] GINA: 12/03/22 00:[address]: Sergio Pack DEPT: SURGICAL PATHOLOGY RECD BY: Alejandrina Carias ENTERED: 12/04/22 11:27 SP TYPE: Lesion OTHR DR: Dr. Melina Agosto MD Tissues: A - Skin of eyelid, NOS B - Skin of eyelid, NOS Procedures: Surgery Specimen Level IV HEADER OPERATION: Lesion removal right upper lid and left upper lid PRE-OP DIAGNOSIS: Grown of eyelid D49.2 TISSUE SUBMITTED: A ? Right upper lid, B ? Left upper lid MICROSCOPIC DIAGNOSIS A. Right upper lid lesion, biopsy: Squamous papilloma. B. Left upper lid lesion, biopsy: Intradermal nevus. STEFFI:tali 12/05/2022 MICROSCOPIC DESCRIPTION Slides are reviewed. GROSS DESCRIPTION A - Received in fixative is one container labeled with the patient's name and designated right upper lid. The specimen consists of barraza-white skin measuring 0.5 x 0.3 x 0.2 cm. The specimen is inked and submitted entirely in one cassette. B - Received in fixative is one container labeled with the patient's name and designated left upper lid. The specimen consists of barraza-white skin measuring 0.4 x 0.2 x 0.1 cm. The specimen is inked and submitted entirely in one cassette. / STEFFI:tali 12/04/2022 TC:1 [facility]: [id number] [phone]
== END | disposition home or self-care (01) ==
LOC: LABSPEC 10:14
PROVIDERS: PCP Internal Medicine; Referring Provider Ophthalmology; Visit Provider Ophthalmology
DX: D49.2 Neoplasm of unspecified behavior of bone, soft tissue, and skin (principal)
CPT/HCPCS: 88305

== ENCOUNTER → 2022-12-25 | Outpatient (CLI) | payer MEDICARE, SELFPAY ==
--- NOTE | 2022-12-25 | CYSPIN_PTH ---
PATIENT: APARNA CARRERA LOC: [facility] U#:[id number] AGE/SX: 77/M ROOM: RE12/25/[address]: Dr. Ean Marquez MD : 1945 BED: DIS: 12/25/2022 SPEC #: [id number] RECD: 12/25/22 15:00 STATUS: JOHN DE [place] #: [id number] GINA: 12/25/22 00:[address]: Ean Marquez DEPT: CYTOLOGY RECD BY: Tom Luna ENTERED: 12/26/22 10:50 SP TYPE: CYSPIN FL OTHR DR: Dr. Melina Agosto MD Tissues: Urine Procedures: Pap Stain (control) Special Stain Group II Cytospin Fluid HEADER OPERATION: Not noted PRE-OP DIAGNOSIS: Malignant neoplasm of bladder TISSUE SUBMITTED: Urine for cytology DIAGNOSIS CYTOLOGY Urine for cytology (cytospin): Negative for malignant cells. See comment. AM:tali 12/26/2022 COMMENT The specimen primarily contains squamous epithelial cells and occasional spermatozoa. Clinical correlation is suggested. CYTOLOGY STUDY Slides are reviewed. CYTOLOGY GROSS Received is 40 ml of hazy yellow fluid labeled with the patient's name and and designated per the requisition as urine. Submitted for cytology preparation. / tali 12/26/2022 TC:5 CPT: 70709
[2022-12-25 17:12] LABS: Cytology, Body Fluid / CSF SEE PATHOLOGY REPORT
== END | disposition home or self-care (01) ==
LOC: LABSPEC 16:55
PROVIDERS: PCP Internal Medicine; Referring Provider Urology; Visit Provider Urology
DX: C67.2 Malignant neoplasm of lateral wall of bladder (principal)
CPT/HCPCS: 88108; 88313

== ENCOUNTER → 2023-09-25 | Outpatient (CLI) | payer MEDICARE, SELFPAY ==
--- OUTSIDE RECORDS SUMMARY | 2023-09-25 12:42 | XMS RPT_ITS | CCD ---
Author Name Unknown Address [address] [place] [address] Organization [facility] Care Team Providers Care Power Transmission Engineer Name Role Phone DeFinisBryceumi Y Unavailable Unavailable Kianis, Harshefali Y Unavailable Unavailable Keke South Unavailable MD Mo, Ubadlo Tovar Unavailable Keke South Unavailable Allergies Allergy Classification Reported Allergen(s) Allergy Type Date of Onset Reaction(s) Facility (5 sources) atorvastatin drug allergy 07-25-2016 [facility] Work Phone: (5 sources) Egg drug allergy 07-25-2016 [facility] Work Phone: (5 sources) penicillin drug allergy 07-25-2016 [facility] Work Phone: (5 sources) rosuvastatin drug allergy 07-25-2016 [facility] Work Phone: (5 sources) simvastatin drug allergy 07-25-2016 [facility] Work Phone: [phone] (5 sources) vancomycin drug allergy 07-25-2016 [facility] Work Phone: [phone] (5 sources) DEFINITY drug allergy 08-16-2016 Severe lower back muscle spasms [facility] Work Phone: [phone] (5 sources) PERFUME drug allergy 07-31-2016 [facility] Work Phone: [phone] Medications Completed/Discontinued Medications Medication Drug Class(es) Dates Sig (Normalized) Sig (Original) ALBUTEROL SULFATE (5 sources) beta2-Adrenergic Agonist Start: 07-25-2016 PROAIR HFA 108 (90 Base) MCG/ACT AERS As Directed ALBUTEROL SULFATE [id number] Aviva Alberto RN Problems Active Problems Problem Classification Problem Date Documented Da te Episodic/Chronic Chronic obstructive pulmonary disease and bronchiectasis (5 sources) Chronic obstructive lung disease; 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: [Chronic obstructive pulmonary disease, unspecified] Onset: 07-25-2016 07-25-2016 Chronic Disorders of lipid metabolism (5 sources) Hyperlipidemia; 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: [Hyperlipidemia, unspecified] Onset: 07-25-2016 07-25-2016 Chronic Essential hypertension (5 sources) Hypertensive disorder; 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: [Essential (primary) hypertension] Onset: 07-25-2016 07-25-2016 Chronic Heart valve disorders (10 sources) Nonrheumatic aortic (valve) insufficiency; 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: [Nonrheumatic tricuspid (valve) insufficiency] Onset: 07-31-2016 07-31-2016 Chronic Other nutritional; endocrine; and metabolic disorders (5 sources) Body mass index (BMI) 39.0-39.9, adult; 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: [Body mass index (BMI) 39.0-39.9, adult] Onset: 07-31-2016 07-31-2016 Chronic Pulmonary heart disease (10 sources) Other secondary pulmonary hypertension; 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: [Other secondary pulmonary hypertension] Onset: 07-31-2016 Resolved: 11-01-2016 11-01-2016 Chronic Unclassified (5 sources) Obstructive sleep apnea syndrome; 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: [Obstructive sleep apnea (adult) (pediatric)] Onset: 07-25-2016 07-25-2016 Chronic Unclassified (1 source) Long-term drug therapy; 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: [Other shelter (current) drug therapy] Onset: 07-31-2016 07-31-2016 Past or Other Problems Problem Classification Problem Date Documented Date Episodic/Chronic Coma, stupor, brain damage (5 sources) Daytime somnolence; 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: [Somnolence] Onset: 07-31-2016 07-31-2016 Episodic Malaise and fatigue (5 sources) Fatigue; 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: [Other fatigue] Onset: 07-25-2016 07-25-2016 Episodic Other aftercare (4 sources) Other shelter (current) drug therapy; 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: [Other shelter (current) drug therapy] Onset: 07-31-2016 07-31-2016 Episodic Other circulatory disease (5 sources) Electrocardiogram abnormal; 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: [Abnormal electrocardiogram [ECG] [EKG]] Onset: 07-31-2016 07-31-2016 Episodic Other lower respiratory disease (5 sources) Dyspnea; 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: [Shortness of breath] Onset: 07-31-2016 07-31-2016 Episodic Results Test Name Value Interpretation Reference Range Facil ity Vital Signs Date Time Vital Sign Value Performing Clinician Donna santos 05-21-2017 08:41-0400 BP Diastolic 78 mm[Hg] Harumi DeFinis [facility] Work Phone: 05-21-2017 08:41-0400 BP Systolic 120 mm[Hg] Harumi DeFinis [facility] Work Phone: 05-21-2017 08:41-0400 Pulse (Heart Rate) 84 /min Harumi DeFinis [facility] Work Phone: 05-21-2017 08:41-0400 Respiratory Rate 21 /min Harumi DeFinis [facility] Work Phone: 05-21-2017 08:41-0400 Weight 126.51 kg Harumi DeFinis [facility] Work Phone: 05-06-2017 07:21-0400 BMI (Body Mass Index) 39.74 kg/m2 [facility] Work Phone: 05-06-2017 07:21-0400 BP Diastolic 70 mm[Hg] Keke South [facility] Work Phone: 05-06-2017 07:21-0400 BP Systolic 124 mm[Hg] [facility] Work Phone: 05-06-2017 07:21-0400 Height 177.8 cm Keke South [facility] Work Phone: 05-06-2017 07:21-0400 Pulse (Heart Rate) 80 /min [facility] Work Phone: 05-06-2017 07:21-0400 Respiratory Rate 26 /min [facility] Work Phone: 05-06-2017 07:21-0400 Weight 125.65 kg Keke South [facility] Work Phone: 11-01-2016 12:58-0500 BMI (Body Mass Index) 39.88 kg/m2 Ubaldo Hassan MD [facility] Work Phone: 11-01-2016 12:58-0500 BP Diastolic 64 mm[Hg] Ubaldo Hassan MD [facility] Work Phone: 11-01-2016 12:58-0500 BP Systolic 140 mm[Hg] Ubaldo Hassan MD [facility] Work Phone: 11-01-2016 12:58-0500 BSA (Body Surface Area) 2.4 m2 Ubaldo Hassan MD [facility] Work Phone: 11-01-2016 12:58-0500 Height 177.8 cm Ubaldo Hassan MD [facility] Work Phone: 11-01-2016 12:58-0500 Pulse (Heart Rate) 96 /min Ubaldo Hassan MD [facility] Work Phone: 11-01-2016 12:58-0500 Pulse Oximetry 96 % Ubaldo Hassan MD [facility] Work Phone: 11-01-2016 12:58-0500 Respiratory Rate 24 /min Ubaldo Hassan MD [facility] Work Phone: 11-01-2016 12:58-0500 Weight 126.1 kg Ubaldo Hassan MD [facility] Work Phone: 09-20-2016 15:35-0500 Heart rate 88 /min Keke South [facility] Work Phone: Procedures Date Procedure Procedure Detail Performing Clinician Start: 05-21-2017 End: 05-21-2017 Follow Up BP Check Ubaldo Hassan MD Work Phone: Start: 05-06-2017 End: 05-06-2017 Dietary management education, guidance, and counseling Keke South Start: 05-06-2017 End: 05-06-2017 DJN Ubaldo Hassan MD Work Phone: Start: 05-06-2017 End: 05-06-2017 Follow Up Appt 6 months Ubaldo Hassan MD Work Phone: Start: 11-01-2016 End: 04-30-2017 KARTHIKEYAN Hassan MD Work Phone: Start: 11-01-2016 End: 04-30-2017 Follow Up Appt 6 months Ubaldo Hassan MD Work Phone: Start: 11-01-2016 End: 04-30-2017 Pulmonary stress test/simple Ubaldo black MD Work Phone: Start: 09-20-2016 End: 09-20-2016 *BMP Ubaldo Hassan MD Work Phone: Start: 09-20-2016 End: 09-20-2016 aPTT Ubalod Hassan MD Work Phone: Start: 09-20-2016 End: 09-20-2016 CBC W Auto Differential panel - Blood Ubaldo Hassan MD Work Phone: Start: 09-20-2016 End: 09-28-2016 Chest x-ray Ubaldo Hassan MD Work Phone: Start: 09-20-2016 End: 09-20-2016 Coagulation factor induced.INR assay in platelet poor plasma Ubaldo Hassan MD Work Phone: Start: 09-20-2016 End: 09-20-2016 KARTHIKEYAN Hassan MD Work Phone: Start: 09-20-2016 End: 09-20-2016 Electrocardiogram, complete Ubaldo granda MD Work Phone: Start: 09-20-2016 End: 09-20-2016 Follow Up Appt 1 month Ubaldo Hassan MD Work Phone: Start: 09-20-2016 End: 09-28-2016 Left & Right Heart Cath Ubaldo Hassan MD Work Phone: Start: 07-31-2016 End: 09-04-2016 KARTHIKEYAN Hassan MD Work Phone: Start: 07-31-2016 End: 08-03-2016 Echocardiography Ubaldo Hassan MD Work Phone: Start: 07-31-2016 End: 08-03-2016 Electrocardiogram, complete Ubaldo granda MD Work Phone: Start: 07-31-2016 End: 09-04-2016 Follow Up Appt 1 month Ubaldo Hassan MD Work Phone: Start: 07-31-2016 End: 08-16-2016 Stress Echocardiogram - Dobutamine Ubaldo Hassan MD Work Phone: Plan of Treatment Date Care Activity Detail Author Start: 11-04-2017 End: 11-04-2017 Appointment Appointment [facility] Work Phone: Start: 05-21-2017 End: 05-21-2017 Appointment Appointment [facility] Work Phone: Start: 05-21-2017 End: 05-06-2017 Follow Up BP Check Follow Up BP Check [facility] Work Phone: Start: 05-06-2017 End: 05-06-2017 Appointment Appointment [facility] Work Phone: Start: 05-06-2017 End: 05-06-2017 KARTHIKEYAN NAPIER [facility] Work Phone: Start: 05-06-2017 End: 05-06-2017 Follow Up Appt 6 months Follow Up Appt 6 months [facility] Work Phone: Start: 05-06-2017 End: 05-21-2017 Pulmonary Referral [facility] Work Phone: Start: 11-01-2016 End: 04-30-2017 KARTHIKEYAN GRAYN [facility] Work Phone: Start: 11-01-2016 End: 04-30-2017 Follow Up Appt 6 months Follow Up Appt 6 months [facility] Work Phone: Start: 11-01-2016 End: 11-01-2016 Pulmonary stress test/simple Pulmonary stress testing; simple (eg, 6-minute walk) [facility] Work Phone: Start: 09-20-2016 End: 09-20-2016 *BMP *BMP [facility] Work Phone: Start: 09-20-2016 End: 09-20-2016 aPTT *PTT-Partial Thromboplastin Time [facility] Work Phone: Start: 09-20-2016 End: 09-20-2016 aPTT Coag time (PPP) *PTT-Partial Thromboplastin Time [facility] Work Phone: Start: 09-20-2016 End: 09-20-2016 CBC W Auto Differential panel - Blood *CBC without Diff [facility] Work Phone: Start: 09-20-2016 End: 09-28-2016 Chest x-ray X-Ray, Chest, PA & Lateral [facility] Work Phone: Start: 09-20-2016 End: 09-20-2016 Coagulation factor induced.INR assay in platelet poor plasma *PT/INR [facility] Work Phone: Start: 09-20-2016 End: 09-20-2016 KARTHIKEYAN NAPIER [facility] Work Phone: Start: 09-20-2016 End: 09-20-2016 Electrocardiogram, complete EKG (In office) [facility] Work Phone: Start: 09-20-2016 End: 09-20-2016 Follow Up Appt 1 month Follow Up Appt 1 month [facility] Work Phone: Start: 09-20-2016 End: 09-20-2016 Left & Right Heart Cath Left & Right Heart Cath [facility] Work Phone: Start: 07-31-2016 End: 09-04-2016 KARTHIKEYAN GRAYN [facility] Work Phone: Start: 07-31-2016 End: 07-31-2016 Echocardiography Echocardiogram (complete) [facility] Work Phone: Start: 07-31-2016 End: 08-03-2016 Electrocardiogram, complete EKG (In office) [facility] Work Phone: Start: 07-31-2016 End: 09-04-2016 Follow Up Appt 1 month Follow Up Appt 1 month [facility] Work Phone: Start: 07-31-2016 End: 07-31-2016 Stress Echocardiogram - Dobutamine Stress Echocardiogram - Dobutamine [facility] Work Phone: Progress note 11-27-2021 Note Date & Type Note Facility 11-27-2021 Note HNO ID: [id number] Author: Aidee Monterroso Ma Service: ? Author Type: ? Type: Progress Notes Filed: 11/27/2021 3:34 PM Note Text: PCP updated. Aidee oMnterroso Ma [facility] Progress note 11-27-2021 Note Date & Type Note Facility 11-27-2021 Note HNO ID: [id number] Author: Gemini Varghese RN Service: ? Author Type: Registered Nurse Type: Progress Notes Filed: 11/27/2021 3:34 PM Note Text: Patient calls in to let provider know that he has changed providers. Current PCP is Dr. Melina Agosto. Gemini Varghese RN [facility] Progress note 11-27-2021 Note Date & Type Note Facility 11-27-2021 Note HNO ID: [id number] Author: Aidee Monterroso Ma Service: ? Author Type: ? Type: Progress Notes Filed: 11/27/2021 3:34 PM Note Text: POPULATION HEALTH NAVIGATION OUTREACH Action/FYI 11/27/21-message left for pt to call back. Needs appt or update PCP. Pt identified by name and : NO Outreach Outcome/Action Unable to reach patient: Left message Reason for Outreach Care Gap or Scheduling/Wellness visits Payer: Payor: [employer] / [place] / Product Type: HMO / Care Gap Reviewed:: Annual Wellness visit Reminder: Reminder note to check Health Maintenance for items below Health Maintenance items due: COVID-19 VACCINE(1) Never done SPIROMETRY Never done HEPATITIS C SCREENING Never done BP CONTROLLED (<130/80) Never done SHINGRIX VACCINE(2 of 3) due on 12/12/2015 DEPRESSION SCREENING due on 11/04/2019 INFLUENZA(1) due on 05/17/2021 ADVANCE DIRECTIVE DISCUSSION Never done ANNUAL PCP TEAM CHRONIC DISEASE VISIT due on 09/26/2021 Aidee Monterroso Ma November 27, 2021 1:01 PM [facility] Progress note 11-27-2021 Note Date & Type Note Facility 11-27-2021 Note HNO ID: [id number] Author: Aidee Monterroso Ma Service: ? Author Type: ? Type: Progress Notes Filed: 11/27/2021 12:59 PM Note Text: See outreach encounter. Aidee Monterroso Ma [facility] Clinical Note 11-27-2021 Note Date & Type Note Facility 11-27-2021 Note Patient Outreach (FA MPWS) APARNA CARRERA ([id number]) 1945 M Date Time Provider Department 11/27/21 AIDEE MONTERROSO During your visit today, we recorded the following information about you: Aidee Monterroso Ma 11/27/2021 3:34 PM Signed POPULATION HEALTH NAVIGATION OUTREACH Action/FYI 11/27/21-message left for pt to call back. Needs appt or update PCP. Pt identified by name and : NO Outreach Outcome/Action Unable to reach patient: Left message Reason for Outreach Care Gap or Scheduling/Wellness visits Payer: Payor: [employer] ADVANTAGE / [place] / Product Type: HMO / Care Gap Reviewed:: Annual Wellness visit Reminder: Reminder note to check Health Maintenance for items below Health Maintenance items due: COVID-19 VACCINE(1) Never done SPIROMETRY Never done HEPATITIS C SCREENING Never done BP CONTROLLED (<130/80) Never done SHINGRIX VACCINE(2 of 3) due on 12/12/2015 DEPRESSION SCREENING due on 11/04/2019 INFLUENZA(1) due on 05/17/2021 ADVANCE DIRECTIVE DISCUSSION Never done ANNUAL PCP TEAM CHRONIC DISEASE VISIT due on 09/26/2021 Aidee Monterroso Ma November 27, 2021 1:01 PM Gmeini Varghese RN 11/27/2021 3:34 PM Signed Patient calls in to let provider know that he has changed providers. Current PCP is Dr. Melina Agosto. BOOM Lindsay Ma 11/27/2021 3:34 PM Signed PCP updated. Aidee Monterroso Ma Allergies As of Date: 11/27/2021 Noted Allergy Reaction CRESTOR (ROSUVASTATIN CALCIUM) 02/25/2018 [...] 09/29/2010 7 - Swelling Comments: Throat swelling TOMATOES 02/19/2019 4 - Hives VANCOMYCIN 09/29/2010 14 - Other: See Comments Comments: Elevated B/P ZOCOR (SIMVASTATIN) 09/29/2010 14 - Other: See Comments Comments: Muscle Spasms Date Reviewed: 09/26/2020 Reviewed by: Aidee Monterroso Ma - Fully Assessed Reason for Visit: PHMA/Care Gap Outreach [5115] Prescriptions as of 11/27/2021 - tamsulosin ER (FLOMAX) 0.4 mg Take 1 capsule by mouth daily at bedtime. - levothyroxine (LEVOXYL) 150 mcg tablet Take 1 tablet by mouth once daily. - armodafinil (NUVIGIL) 150 mg tab Take 1 tablet by mouth once daily for 90 days. - oxybutynin ER (DITROPAN XL) 10 mg 24 hr tablet Take 1 tablet by mouth once daily. - dutasteride (AVODART) 0.5 mg capsule Take 1 capsule by mouth once daily. - losartan (COZAAR) 50 mg tablet Take 1 tablet by mouth once daily. - furosemide (LASIX) 40 mg tablet Take 1 tablet by mouth twice daily. - aspirin, enteric coated (ADULT LOW DOSE ASPIRIN) 81 mg EC tablet Take 1 tablet by mouth once daily. - losartan-hydrochlorothiazide (HYZAAR) 50-12.5 mg per tablet Take 1 tablet by mouth once daily. - albuterol HFA (PROAIR HFA) 90 mcg/actuation inhaler Inhale 2 Puffs as instructed every 4 hours as needed. - fluticasone-salmeterol (ADVAIR DISKUS) 250-50 mcg/dose dsdv Inhale 1 Puff as instructed twice daily. Rinse and gargle mouth after use with water. - polyethylene glycol 3350 (MIRALAX) 17 gram/dose powder Take 17 g by mouth once daily. - ibuprofen 200 mg ORAL tablet Meds Comments as of 08/25/2019: Turmeric, Tums, Medway-3, Garligue, Yael Root - daily. Problem List As Of Date 11/27/2021 Noted Resolved SYEDA (obstructive sleep apnea) [G47.33] COPD (chronic obstructive pulmonary disease) [J* Thyroid disorder [E07.9] Bronchitis [J40] Asbestosis [J61] Hypertension, essential [I10] 08/26/2020 Hypothyroidism, acquired [E03.9] 08/26/2020 Encounter Status:Closed by AIDEE MONTERROSO MA on 11/27/21 [facility] Clinical Note 11-27-2021 Note Date & Type Note Facility 11-27-2021 Note Patient Outreach (DELANO MPWS) APARNA CARRERA ([id number]) 1945 M Date Time Provider Department 11/27/21 SHARMILA THAKUR During your visit today, we recorded the following information about you: Sharmila Thakur APRN.CNP 11/27/2021 12:59 PM Signed STAMP Please reach out to patient for overdue appointment for chronic disease management with myself, Dr. Sood, or Bria Oro. Labs are ordered. If he/she is no longer following with Dr. Sood, please remove name from PCP field. Sharmila Thakur APRN.CLINICAL TECHNICIAN Aidee Monterroso Ma 11/27/2021 12:59 PM Signed See outreach encounter. Aidee Monterroso Ma Allergies As of Date: 11/27/2021 Noted Allergy Reaction CRESTOR (ROSUVASTATIN CALCIUM) 02/25/2018 [...] 09/29/2010 7 - Swelling Comments: Throat swelling TOMATOES 02/19/2019 4 - Hives VANCOMYCIN 09/29/2010 14 - Other: See Comments Comments: Elevated B/P ZOCOR (SIMVASTATIN) 09/29/2010 14 - Other: See Comments Comments: Muscle Spasms Date Reviewed: 09/26/2020 Reviewed by: Aidee Monterroso Ma - Fully Assessed Primary Visit Diagnosis:Hypertension, essential [I10] Other Visit Diagnoses:Hypothyroidism, acquired [E03.9] Elevated glucose [R73.09] Elevated cholesterol [E78.00] Order(s):TSH BLD [SQTSH] Order #: [id number] FUTURE COMP METABOLIC PANEL [SQCMP] Order #: [id number] FUTURE LIPID PANEL BASIC [SQLIPB] Order #: [id number] FUTURE HGB A1C [RMVPL7V] Order #: [id number] FUTURE Prescriptions as of 11/27/2021 - tamsulosin ER (FLOMAX) 0.4 mg Take 1 capsule by mouth daily at bedtime. - levothyroxine (LEVOXYL) 150 mcg tablet Take 1 tablet by mouth once daily. - armodafinil (NUVIGIL) 150 mg tab Take 1 tablet by mouth once daily for 90 days. - oxybutynin ER (DITROPAN XL) 10 mg 24 hr tablet Take 1 tablet by mouth once daily. - dutasteride (AVODART) 0.5 mg capsule Take 1 capsule by mouth once daily. - losartan (COZAAR) 50 mg tablet Take 1 tablet by mouth once daily. - furosemide (LASIX) 40 mg tablet Take 1 tablet by mouth twice daily. - aspirin, enteric coated (ADULT LOW DOSE ASPIRIN) 81 mg EC tablet Take 1 tablet by mouth once daily. - losartan-hydrochlorothiazide (HYZAAR) 50-12.5 mg per tablet Take 1 tablet by mouth once daily. - albuterol HFA (PROAIR HFA) 90 mcg/actuation inhaler Inhale 2 Puffs as instructed every 4 hours as needed. - fluticasone-salmeterol (ADVAIR DISKUS) 250-50 mcg/dose dsdv Inhale 1 Puff as instructed twice daily. Rinse and gargle mouth after use with water. - polyethylene glycol 3350 (MIRALAX) 17 gram/dose powder Take 17 g by mouth once daily. - ibuprofen 200 mg ORAL tablet Meds Comments as of 08/25/2019: Turmeric, Tums, Medway-3, Garligue, Yael Root - daily. Problem List As Of Date 11/27/2021 Noted Resolved SYEDA (obstructive sleep apnea) [G47.33] COPD (chronic obstructive pulmonary disease) [J* Thyroid disorder [E07.9] Bronchitis [J40] Asbestosis [J61] Hypertension, essential [I10] 08/26/2020 Hypothyroidism, acquired [E03.9] 08/26/2020 Encounter Status:Closed by AIDEE MONTERROSO MA on 11/27/21 [facility] Progress note 11-27-2021 Note Date & Type Note Facility 11-27-2021 Note HNO ID: [id number] Author: Sharmila Thakur APRN.URSZULA Service: ? Author Type: Nurse Practitioner Type: Progress Notes Filed: 11/27/2021 12:59 PM Note Text: STAMP Please reach out to patient for overdue appointment for chronic disease management with myself, Dr. Sood, or Bria Oro. Labs are ordered. If he/she is no longer following with Dr. Sood, please remove name from PCP field. Sharmila Thakur APRN.CLINICAL TECHNICIAN [facility] Summary Purpose Family History No Family History Records FoundNo Family History Records Found Advance Directives No Advanced Directives Records FoundNo Advanced Directives Records Found Additional Source Comments (unrecognized sect ion and content) No Status Records FoundNo Status Records Found INFORMATION SOURCE (unrecogn ized section and content) DATE CREATED AUTHOR AUTHOR'S SINDY WANGRANDI 12/06/2021 [facility] FOR RECORDS PERTAINING TO PATIENTS WHO ARE OR HAVE BEEN ENROLLED IN A CHEMICAL DEPENDENCY/SUBSTANCEABUSE PROGRAM, SOME INFORMATION MAY BE OMITTED. This clinical summary was aggregated from multiple sources. Caution should be exercised in using it in the provision of clinical care. This summary normalizes information from multiple sources, and as a consequence, information in this document may materially change the coding, format and clinical context of patient data. In addition, data may be omitted in some cases. CLINICAL DECISIONS SHOULD BE BASED ON THE PRIMARY CLINICAL RECORDS. [facility] [employer] provides no warranty or guarantee of the accuracy or completeness of information in this document.
[2023-09-25 13:26] LABS: Absolute Lymphocyte Count 2.64 X10^3/uL (0.83-4.51); Absolute Neutrophil Count 4.3 X10^3/uL (2.0-7.7); Basophil# 0.05 X10^3/uL; Basophil% 0.6 % (0-1); Eosinophil# 0.12 X10^3/uL; Eosinophils% 1.5 % (0-5); Hematocrit 52.3 % (40-54); Lymphocyte # 2.64 X10^3/ul (0.83-4.51); Mean Corp Hgb Conc 34.8 g/dL (32-36); Mean Corpuscular Hgb 31.5 pg (27.0-32.0); Mean Corpuscular Volume 90.6 fL (80-94); Mean Platelet Vol. 10.3 fl (6.2-12.0); Monocyte# 0.89 X10^3/uL; Monocyte% 11.1 % (0-10); NRBC Flagged by Analyzer 0 % (0-5); Neutrophil # 4.29 X10^3/uL (2.7-7.7); Neutrophil % 53.7 % (47-70); Platelet Count 171 K/mm3 (150-450); RBC Distribution Width CV 13.4 % (11.6-14.6); Red Blood Count 5.77 M/mm3 (4.6-6.2)
[2023-09-25 14:13] LABS: ALB/GLOB Ratio 1.1 RATIO (0.9-2.4); AST(SGOT) 19 U/L (15-37); Alanine Aminotransfer ALT/SGPT 26 U/L (16-61); Albumin, Serum 3.9 g/dL (3.2-5.0); Alkaline Phosphatase 94 U/L (45-117); Anion Gap 6 (5-15); BUN 24 mg/dL (7-18); BUN/Creat Ratio 29.7 RATIO (10-20); Calcium,Total 9.6 mg/dL (8.5-10.1); Chloride 104 mmol/L (98-107); Cholesterol 179 mg/dL (200); Creatinine, Serum 0.81 mg/dL (0.70-1.30); EST Glomerular Filtration Rate 98 mL/min (>60); Est Glom Filt Rate - Afr Amer 119 mL/min (>60); Free T3 2.5 pg/mL (2.18-3.98); Globulin 3.7 g/dL (2.2-4.2); Glucose 103 mg/dL (74-106); High Density Lipoprotein 37 mg/dL; Magnesium 2.2 mg/dL (1.6-2.6); Potassium 3.7 mmol/L (3.5-5.1); Protein, Total 7.6 g/dL (6.4-8.2); Sodium Level 139 mmol/L (136-145); Thyroid Stim Hormone (TSH) 1.86 uIU/mL (0.358-3.74); Triglycerides 285 mg/dL; Very Low Density Lipoprotein 57 mg/dL (5-40)
[2023-09-25 14:19] LABS: Vitamin B12 168 pg/mL (211-911); Vitamin D,25 Hydroxy 35.2 ng/mL
[2023-09-25 15:43] LABS: Hemoglobin 18.2 g/dL (13.0-16.5)
[2023-10-05 09:08] LABS: Testosterone, % Free 2.04 % (1.50-4.20); Testosterone, Free 10.69 ng/dL (5.00-21.00); Testosterone, Total 524 ng/dL (264-916)
== END | disposition home or self-care (01) ==
LOC: LAB 12:21
PROVIDERS: PCP Internal Medicine; Referring Provider Internal Medicine; Visit Provider Internal Medicine
DX: I10 Essential (primary) hypertension (principal); E66.01 Morbid (severe) obesity due to excess calories; F17.201 Nicotine dependence, unspecified, in remission; G62.9 Polyneuropathy, unspecified; E03.9 Hypothyroidism, unspecified; R19.8 Other specified symptoms and signs involving the digestive system and abdomen; G47.33 Obstructive sleep apnea (adult) (pediatric); E29.1 Testicular hypofunction; E53.8 Deficiency of other specified B group vitamins; E55.9 Vitamin D deficiency, unspecified; R53.83 Other fatigue; Z13.220 Encounter for screening for lipoid disorders
CPT/HCPCS: 36415; 80053; 80061; 82306; 82607; 83735; 84402; 84403; 84439; 84443; 84481; 85025

== ENCOUNTER → 2023-10-28 | Outpatient (CLI) | payer MEDICARE, SELFPAY ==
--- OUTSIDE RECORDS SUMMARY | 2023-10-28 11:32 | XMS RPT_ITS | CCD ---
Author Name Unknown Address [address] [place] [address] Organization [facility] Care Team Providers Care Residential Recycle Driver Name Role Phone DeFinisBryceumi Y Unavailable Unavailable Kianis, Harumi Y Unavailable Unavailable Keke South Unavailable MD Mo, Ubaldo Tovar Unavailable Keke South Unavailable Allergies Allergy Classification Reported Allergen(s) Allergy Type Date of Onset Reaction(s) Facility (5 sources) atorvastatin drug allergy 07-25-2016 [facility] Work Phone: (5 sources) Egg drug allergy 07-25-2016 [facility] Work Phone: (5 sources) penicillin drug allergy 07-25-2016 [facility] Work Phone: [phone] (5 sources) rosuvastatin drug allergy 07-25-2016 [facility] Work Phone: (5 sources) simvastatin drug allergy 07-25-2016 [facility] Work Phone: [phone] (5 sources) vancomycin drug allergy 07-25-2016 [facility] Work Phone: [phone] (5 sources) DEFINITY drug allergy 08-16-2016 Severe lower back muscle spasms [facility] Work Phone: [phone] (5 sources) PERFUME drug allergy 07-31-2016 [facility] Work Phone: [phone] Medications Completed/Discontinued Medications Medication Drug Class(es) Dates Sig (Normalized) Sig (Original) ALBUTEROL SULFATE (5 sources) beta2-Adrenergic Agonist Start: 07-25-2016 PRO[facility] HFA 108 (90 Base) MCG/ACT AERS As Directed ALBUTEROL SULFATE [phone] Aviva Alberto RN Problems Active Problems Problem [...] (1 source) Long-term drug therapy; 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: [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] Onset: 07-31-2016 07-31-2016 Past or Other Problems Problem Classification Problem Date Documented Date Episodic/Chronic Coma, stupor, brain damage (5 sources) Daytime somnolence; 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: [Somnolence] Onset: 07-31-2016 07-31-2016 Episodic Malaise and fatigue (5 sources) Fatigue; 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: [Other fatigue] Onset: 07-25-2016 07-25-2016 Episodic Other aftercare (4 sources) 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; 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: [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] Onset: 07-31-2016 07-31-2016 Episodic [...] 08:41-0400 BP Diastolic 78 mm[Hg] Harumi DeFinis [facility] Work Phone: 05-21-2017 08:41-0400 BP Systolic 120 mm[Hg] Harumi DeFinis [facility] Work Phone: 05-21-2017 08:41-0400 Pulse (Heart Rate) 84 /min Harumi DeFinis [facility] Work Phone: 05-21-2017 08:41-0400 Respiratory Rate 21 /min Harumi DeFinis [facility] Work Phone: 05-21-2017 08:41-0400 Weight 126.51 kg Harumi DeFinis [facility] Work Phone: 05-06-2017 07:21-0400 BMI (Body Mass Index) 39.74 kg/m2 [facility] Work Phone: 05-06-2017 07:21-0400 BP Diastolic 70 mm[Hg] Keke South [facility] Work Phone: 05-06-2017 07:21-0400 BP Systolic 124 mm[Hg] [facility] Work Phone: 05-06-2017 07:21-0400 Height 177.8 cm Keke South [facility] Work Phone: 05-06-2017 07:21-0400 Pulse (Heart Rate) 80 /min [facility] Work Phone: 05-06-2017 07:21-0400 Respiratory Rate 26 /min [facility] Work Phone: 05-06-2017 07:21-0400 Weight 125.65 kg Keke South [facility] Work Phone: 11-01-2016 12:58-0500 BMI (Body Mass Index) 39.88 kg/m2 Ubaldo Hassan MD [facility] Work Phone: 11-01-2016 12:58-0500 BP Diastolic 64 mm[Hg] Ubaldo Hassan MD [facility] Work Phone: 11-01-2016 12:58-0500 BP Systolic 140 mm[Hg] Ubaldo Hassan MD [facility] Work Phone: 11-01-2016 12:58-0500 BSA (Body Surface Area) 2.4 m2 Ubaldo Hassan MD [facility] Work Phone: 11-01-2016 12:58-0500 Height 177.8 cm Ubaldo Hassan MD [facility] Work Phone: 11-01-2016 12:58-0500 Pulse (Heart Rate) 96 /min Ubaldo Hassan MD [facility] Work Phone: 11-01-2016 12:58-0500 Pulse Oximetry 96 % Ubaldo Hassan MD [facility] Work Phone: 11-01-2016 12:58-0500 Respiratory Rate 24 /min Ubaldo Hassan MD [facility] Work Phone: 11-01-2016 12:58-0500 Weight 126.1 kg Ubaldo Hassan MD [facility] Work Phone: 09-20-2016 15:35-0500 Heart rate 88 /min Keke South [facility] Work Phone: Procedures Date Procedure [...] Work Phone: Start: 09-20-2016 End: 09-20-2016 aPTT Ubaldo Hassan MD Work Phone: Start: 09-20-2016 [...] Author Start: 11-04-2017 End: 11-04-2017 Appointment Appointment [facility] [facility] Work Phone: Start: 05-21-2017 End: 05-21-2017 Appointment Appointment [facility] Work Phone: Start: 05-21-2017 End: 05-06-2017 Follow Up BP Check Follow Up BP Check [facility] Work Phone: Start: 05-06-2017 End: 05-06-2017 Appointment Appointment [facility] Work Phone: Start: 05-06-2017 End: 05-06-2017 KARTHIKEYAN NAPIER [facility] [facility] Work Phone: Start: 05-06-2017 End: 05-06-2017 Follow Up Appt 6 months Follow Up Appt 6 months [facility] Work Phone: Start: 05-06-2017 End: 05-21-2017 Pulmonary Referral [facility] Work Phone: Start: 11-01-2016 End: 04-30-2017 KARTHIKEYAN GRAYN [facility] Work Phone: Start: 11-01-2016 End: 04-30-2017 Follow Up Appt 6 months Follow Up Appt 6 months [facility] Work Phone: Start: 11-01-2016 End: 11-01-2016 Pulmonary stress test/simple Pulmonary stress testing; simple (eg, 6-minute walk) [facility] Work Phone: Start: 09-20-2016 End: 09-20-2016 *BMP *BMP [facility] Work Phone: Start: 09-20-2016 End: 09-20-2016 aPTT *PTT-Partial Thromboplastin Time [facility] Work Phone: Start: 09-20-2016 End: 09-20-2016 aPTT Coag time (PPP) *PTT-Partial Thromboplastin Time [facility] Work Phone: Start: 09-20-2016 End: 09-20-2016 CBC W Auto Differential panel - Blood *CBC without Diff [facility] Work Phone: Start: 09-20-2016 End: 09-28-2016 Chest x-ray X-Ray, Chest, PA & Lateral [facility] Work Phone: Start: 09-20-2016 End: 09-20-2016 Coagulation factor induced.INR assay in platelet poor plasma *PT/INR [facility] Work Phone: Start: 09-20-2016 End: 09-20-2016 KARTHIKEYAN NAPIER [facility] Work Phone: Start: 09-20-2016 End: 09-20-2016 Electrocardiogram, complete EKG (In office) [facility] Work Phone: Start: 09-20-2016 End: 09-20-2016 Follow Up Appt 1 month Follow Up Appt 1 month [facility] Work Phone: Start: 09-20-2016 End: 09-20-2016 Left & Right Heart Cath Left & Right Heart Cath [facility] Work Phone: Start: 07-31-2016 End: 09-04-2016 KARTHIKEYAN GRAYN [facility] Work Phone: Start: 07-31-2016 End: 07-31-2016 Echocardiography Echocardiogram (complete) [facility] Work Phone: Start: 07-31-2016 End: 08-03-2016 Electrocardiogram, complete EKG (In office) [facility] Work Phone: Start: 07-31-2016 End: 09-04-2016 Follow Up Appt 1 month Follow Up Appt 1 month [facility] Work Phone: Start: 07-31-2016 End: 07-31-2016 Stress Echocardiogram - Dobutamine Stress Echocardiogram - Dobutamine [facility] Work Phone: Progress note 11-27-2021 Note Date & Type Note Facility 11-27-2021 Note HNO ID: [id number] Author: Aidee Monterroso Ma Service: ? Author Type: ? Type: Progress Notes Filed: 11/27/2021 3:34 PM Note Text: PCP updated. Aidee Monterroso Ma [facility] Progress note 11-27-2021 Note Date & Type Note Facility 11-27-2021 Note HNO ID: [id number] Author: Gemini Varghese RN Service: ? Author Type: Registered Nurse Type: Progress Notes Filed: 11/27/2021 3:34 PM Note Text: Patient calls in to let provider know that he has changed providers. Current PCP is Dr. Melina Agosto. Gemini Varghese RN [facility] Progress note 11-27-2021 Note Date & Type Note Facility 11-27-2021 Note HNO ID: [id number] Author: Aidee Monterroso Ma Service: ? Author [...] Payer: Payor: [employer] / [place] / Product Type: HMO / Care [...] Monterroso Ma November 27, 2021 1:01 PM [facility] Progress note 11-27-2021 Note Date & Type Note Facility 11-27-2021 Note HNO ID: [id number] Author: Aidee Monterroso Ma Service: ? Author Type: ? Type: Progress Notes Filed: 11/27/2021 12:59 PM Note Text: See outreach encounter. Aidee Monterroso Ma [facility] Clinical Note 11-27-2021 Note Date & Type Note Facility 11-27-2021 Note Patient Outreach (FA MPWS) APARNA CARRERA ([id number]) 1945 M Date Time Provider Department 11/27/21 [...] Payer: Payor: [employer] ADVANTAGE / [place] / Product Type: HMO / Care [...] Monterroso Ma November 27, 2021 1:01 PM Gemini Varghese RN 11/27/2021 3:34 PM Signed Patient [...] Assessed Reason for Visit: PHMA/Care Gap Outreach [[id number]] Prescriptions as of 11/27/2021 - tamsulosin ER [...] Meds Comments as of 08/25/2019: Turmeric, Tums, [place]-3, Garligue, Yael Root - daily. Problem List As Of Date 11/27/2021 Noted Resolved SYEDA (obstructive sleep apnea) [G47.33] COPD (chronic obstructive pulmonary disease) [J* Thyroid disorder [E07.9] Bronchitis [J40] Asbestosis [J61] Hypertension, essential [I10] 08/26/2020 Hypothyroidism, acquired [E03.9] 08/26/2020 Encounter Status:Closed by AIDEE MONTERROSO MA on 11/27/21 [facility] Clinical Note 11-27-2021 Note Date & Type Note Facility 11-27-2021 Note Patient Outreach (DELANO MPWS) APARNA CARRERA ([id number]) 1945 M Date Time Provider Department 11/27/21 [...] remove name from PCP field. Sharmila Thakur APRN.BELT PRESS OPERATOR Aidee Monterroso Ma 11/27/2021 12:59 PM Signed [...] cholesterol [E78.00] Order(s):TSH BLD [SQTSH] Order #: [id number] FUTURE COMP METABOLIC PANEL [SQCMP] Order #: [id number] FUTURE LIPID PANEL BASIC [SQLIPB] Order #: [id number] FUTURE HGB A1C [FSZCK4I] Order #: [id number] FUTURE Prescriptions as of 11/27/2021 - tamsulosin [...] Meds Comments as of 08/25/2019: Turmeric, Tums, [place]-3, Garligue, Yael Root - daily. Problem List As Of Date 11/27/2021 Noted Resolved SYEDA (obstructive sleep apnea) [G47.33] COPD (chronic obstructive pulmonary disease) [J* Thyroid disorder [E07.9] Bronchitis [J40] Asbestosis [J61] Hypertension, essential [I10] 08/26/2020 Hypothyroidism, acquired [E03.9] 08/26/2020 Encounter Status:Closed by AIDEE MONTERROSO MA on 11/27/21 [facility] Progress note 11-27-2021 Note Date & Type Note Facility 11-27-2021 Note HNO ID: [id number] Author: Sharmila Thakur APRN.URSZULA Service: ? Author Type: Nurse Practitioner Type: Progress Notes Filed: 11/27/2021 12:59 PM Note Text: STAMP Please reach out to patient for overdue appointment for chronic disease management with myself, Dr. Sood, or Bria Oro. Labs are ordered. If he/she is no longer following with Dr. Sood, please remove name from PCP field. Sharmila Thakur APRN.BELT PRESS OPERATOR [facility] Summary Purpose Family History No Family History Records FoundNo Family History Records Found Advance Directives No Advanced Directives Records FoundNo Advanced Directives Records Found Additional Source Comments (unrecognized sect ion and content) No Status Records FoundNo Status Records Found INFORMATION SOURCE (unrecogn ized section and content) DATE CREATED AUTHOR AUTHOR'S SINDY WANGRANDI 12/06/2021 [facility] FOR RECORDS PERTAINING TO PATIENTS WHO ARE [...] BE BASED ON THE PRIMARY CLINICAL RECORDS. [facility] [employer] provides no warranty or guarantee of the accuracy or completeness of information in this document.
[2023-10-28 14:27] LABS: Absolute Lymphocyte Count 2.37 X10^3/uL (0.83-4.51); Absolute Neutrophil Count 3.5 X10^3/uL (2.0-7.7); Basophil# 0.05 X10^3/uL; Basophil% 0.7 % (0-1); Eosinophil# 0.15 X10^3/uL; Eosinophils% 2.2 % (0-5); Hemoglobin 17.3 g/dL (13.0-16.5); Lymphocyte # 2.37 X10^3/ul (0.83-4.51); Lymphocyte % 35.5 % (19-41); Mean Corp Hgb Conc 32.6 g/dL (32-36); Mean Corpuscular Hgb 30.2 pg (27.0-32.0); Mean Corpuscular Volume 92.5 fL (80-94); Mean Platelet Vol. 10.7 fl (6.2-12.0); NRBC Flagged by Analyzer 0 % (0-5); Neutrophil # 3.47 X10^3/uL (2.7-7.7); Neutrophil % 52.2 % (47-70); Platelet Count 164 K/mm3 (150-450); RBC Distribution Width CV 13.4 % (11.6-14.6); RBC Distribution Width SD 45.7 fl (35.1-43.9); Red Blood Count 5.73 M/mm3 (4.6-6.2); White Blood Count 6.7 K/mm3 (4.4-11.0)
== END | disposition home or self-care (01) ==
LOC: LAB 11:16
PROVIDERS: PCP Internal Medicine; Visit Provider Internal Medicine
DX: Z12.5 Encounter for screening for malignant neoplasm of prostate (principal); E66.01 Morbid (severe) obesity due to excess calories; D58.2 Other hemoglobinopathies; G62.9 Polyneuropathy, unspecified; E03.9 Hypothyroidism, unspecified; I10 Essential (primary) hypertension; E78.5 Hyperlipidemia, unspecified; G47.33 Obstructive sleep apnea (adult) (pediatric); R19.8 Other specified symptoms and signs involving the digestive system and abdomen
CPT/HCPCS: 36415; 85025

== ENCOUNTER → 2023-12-04 | Outpatient (CLI) | payer MEDICARE, SELFPAY ==
[2023-12-04 12:26] LABS: PSA,Total - Annual Screen 0.14 ng/mL (0.00-4.00)
== END | disposition home or self-care (01) ==
LOC: LAB 10:53
PROVIDERS: PCP Internal Medicine; Visit Provider Internal Medicine
DX: Z12.5 Encounter for screening for malignant neoplasm of prostate (principal)
CPT/HCPCS: 36415; 84153; G0103

== ENCOUNTER → 2024-04-28 | Outpatient (CLI) | payer MEDICARE, SELFPAY | END | disposition home or self-care (01) | LOC: PSN 10:31 | PROVIDERS: PCP Internal Medicine; Referring Provider Internal Medicine Critical Care Medicine; Visit Provider Internal Medicine Critical Care Medicine | DX: J45.909 Unspecified asthma, uncomplicated (principal) | CPT/HCPCS: 94060; 94726; 94729 ==

== ENCOUNTER → 2024-06-11 | Outpatient (CLI) | payer MEDICARE, SELFPAY ==
--- NOTE | 2024-06-11 12:36 | ECHOL_ITS ---
Reason For Study: DYSPNEA Procedure This was a 2D Doppler, Color Flow transthoracic echocardiogram. The study was technically difficult. Definity deferred due to patient allergy. Exam performed in department. Left Ventricle Normal LV size. The estimated ejection fraction is 65 %. Unable to assess diastolic dysfunction. No regional wall motion abnormalities noted. Right Ventricle Normal RV size. Normal systolic function. Atria The left and right atria are normal. Mitral Valve There is no mitral valve stenosis. Not assessed. Tricuspid Valve There is no tricuspid stenosis. Not assessed. Aortic Valve Mild diffuse aortic valve thickening. Pericardium/Pleural No pericardial effusion. MMode/2D Measurements & Calculations LAV(MOD-bp): 41.9 ml LA A4 area: 15.5 cm2 RA A4 area: 14.8 cm2 LAV(MOD-bp) Indexed: 18.1 ml/m2 LAV(MOD-sp2): 49.5 ml LAV(MOD-sp4): 33.5 ml ECHO/Echo, Limited Study Interpretation Summary The estimated ejection fraction is 65 %. Ordering Physician: Penny Esquivel Referring Physician: Penny Esquivel Performed By: Yoanna Llanos and Student
== END | disposition home or self-care (01) ==
LOC: CVS 12:35
PROVIDERS: PCP Internal Medicine; Referring Provider Nurse Practitioner Acute Care; Visit Provider Nurse Practitioner Acute Care
DX: R06.02 Shortness of breath (principal)
CPT/HCPCS: 93308

== ENCOUNTER → 2024-06-16 | Outpatient (CLI) | payer MEDICARE, SELFPAY ==
[2024-06-16 13:38] VITALS: PULSE 104; PULSE 105; PULSE 107; PULSE 108; PULSE 93; O2SAT 91; O2SAT 92; O2SAT 93; O2SAT 94
--- NOTE | 2024-06-22 10:17 | PCM.PSN.6M ---
PSN 6 Minute Walk Test 6 Minute Walk Test 6 Minute Walk Test: 6 Minute Walk Test PSN:6-Minute Walk Test Start: 06/16/24 13:38 Freq: Status: Active Protocol: RESP.6MINW Document 06/16/24 13:38 EW (Rec: 06/16/24 13:41 EW [id number]) 6 Minute Walk Test Date Performed 06/16/24 Time Performed 13:00 Height 5 ft 10 in Weight: 255 lb Weight in Pounds 255.0 lbs Assistive device used: Cane Pre-test Oxygen Delivery Method Room Air Pulse Ox (%) 93 Pulse Rate (60-100 beats/min) 107 H Dyspnea Richard Scale (0-10) 3 Exertion Richard Scale (6-20) 9 1st minute Oxygen Delivery Method Room Air Pulse Ox (%) 92 Pulse Rate (60-100 beats/min) 107 H 2nd minute Oxygen Delivery Method Room Air Pulse Ox (%) 91 Pulse Rate (60-100 beats/min) 105 H 3rd minute Oxygen Delivery Method Room Air Pulse Ox (%) 91 Pulse Rate (60-100 beats/min) 107 H 4th minute Oxygen Delivery Method Room Air Pulse Ox (%) 93 Pulse Rate (60-100 beats/min) 108 H 5th minute Oxygen Delivery Method Room Air Pulse Ox (%) 92 Pulse Rate (60-100 beats/min) 108 H 6th minute Oxygen Delivery Method Room Air Pulse Ox (%) 93 Pulse Rate (60-100 beats/min) 104 H Post-test Oxygen Delivery Method Room Air Pulse Ox (%) 94 Pulse Rate (60-100 beats/min) 93 Dyspnea Richard Scale (0-10) 3 Exertion Richard Scale (6-20) 14 Full Laps Walked 10 Partial Lap, Number of Tiles Walked 22 Total Distance Walked (ft) 612 Interpretation Interpretation: The patient ambulated 612 feet over the course of 6 minutes beginning on room air with the use of a cane. Pretesting oxygen saturation was noted to be 93% on room air. With ambulation, the wilbur oxygen saturation was 91%. Although there was evidence of impaired walk distance, there was no significant exertional oxygen desaturation. Recommendations Recommendations: There is no indication for the use of supplemental oxygen at this time.
== END | disposition home or self-care (01) ==
LOC: PSN 12:39
PROVIDERS: PCP Internal Medicine; Referring Provider Nurse Practitioner Acute Care; Visit Provider Nurse Practitioner Acute Care
DX: R06.02 Shortness of breath (principal)
CPT/HCPCS: 94618

== ENCOUNTER → 2024-07-15 | Outpatient (CLI) | payer MEDICARE, SELFPAY ==
[2024-07-15 11:24] LABS: Absolute Lymphocyte Count 2.14 X10^3/uL (0.83-4.51); Absolute Neutrophil Count 4.3 X10^3/uL (2.0-7.7); Basophil# 0.05 X10^3/uL; Basophil% 0.7 % (0-1); Eosinophil# 0.11 X10^3/uL; Eosinophils% 1.5 % (0-5); Hematocrit 50.6 % (40-54); Hemoglobin 16.7 g/dL (13.0-16.5); Lymphocyte # 2.14 X10^3/ul (0.83-4.51); Lymphocyte % 29.2 % (19-41); Mean Corpuscular Hgb 29.8 pg (27.0-32.0); Mean Corpuscular Volume 90.4 fL (80-94); Mean Platelet Vol. 10.3 fl (6.2-12.0); Monocyte# 0.69 X10^3/uL; Monocyte% 9.4 % (0-10); NRBC Flagged by Analyzer 0 % (0-5); Neutrophil # 4.31 X10^3/uL (2.7-7.7); Neutrophil % 58.8 % (47-70); Platelet Count 178 K/mm3 (150-450); RBC Distribution Width CV 13.1 % (11.6-14.6); White Blood Count 7.3 K/mm3 (4.4-11.0)
[2024-07-15 11:50] LABS: BNP,B-Type NATRIURETIC PEPTIDE 9.4 pg/mL (0-100)
[2024-07-15 11:52] LABS: Vitamin B12 716 pg/mL (211-911); Vitamin D,25 Hydroxy 20.4 ng/mL
--- OUTSIDE RECORDS SUMMARY | 2024-07-15 11:55 | XMS RPT_ITS | CCD ---
Author Organization [facility] Care Team Providers Care Program Support Clerk Name Role Phone DeFinOtis villatoro Y Unavailable Unavailable Otis Aguila Y Unavailable Unavailable Keke South Unavailable MD Mo, Ubaldo Tovar Unavailable Keke South Unavailable Allergies Allergy Classification Reported Allergen(s) Allergy Type Date of Onset Reaction(s) Facility (5 sources) atorvastatin drug allergy 07-25-2016 [facility] Work Phone: [phone] (5 sources) Egg drug allergy 07-25-2016 [facility] Work Phone: (5 sources) penicillin drug allergy 07-25-2016 [facility] Work Phone: (5 sources) rosuvastatin drug allergy 07-25-2016 CP [facility] Work Phone: (5 sources) simvastatin drug allergy 07-25-2016 [facility] Work Phone: ([phone] sources) vancomycin drug allergy 07-25-2016 [facility] Work Phone: (5 sources) DEFINITY drug allergy 08-16-2016 Severe lower back muscle spasms [facility] Work Phone: [phone] (5 sources) PERFUME drug allergy 07-31-2016 [facility] Work Phone: [phone] Medications Completed/Discontinued Medications Medication Drug Class(es) Dates Sig (Normalized) Sig (Original) ALBUTEROL SULFATE (5 sources) beta2-Adrenergic Agonist Start: 07-25-2016 PROAIR HFA 108 (90 Base) MCG/ACT AERS As Directed ALBUTEROL SULFATE [id number] Aviva Alberto RN Start: 07-25-2016 PROAIR HFA 108 (90 Base) MCG/ACT AERS As Directed ALBUTEROL SULFATE [id number] Aviva Alberto RN albuterol 0.833 mg/ml / ipratropium bromide 0.167 mg/ml inhalant solution (5 sources) Anticholinergic, beta2-Adrenergic Agonist Start: 07-25-2016 IPRATROPIUM-ALBUTEROL 0.5-2.5 (3) MG/3ML SOLN As directed IPRATROPIUM-ALBUTEROL [id number] Aviva Alberto RN aspirin 81 mg delayed release oral tablet (15 sources) Nonsteroidal Anti-inflammatory Drug Start: 09-20-2016 End: 11-01-2016 take 1 tablet by mouth once daily ASPIRIN EC 81 MG TBEC One tablet by mouth daily ASPIRIN [id number] Ubaldo Hassan MD calcium carbonate 500 mg chewing gum (10 sources) Start: 07-25-2016 End: 07-31-2016 TUMS 500 MG CHEW as directed CALCIUM CARBONATE ANTACID [id number] Aviva Alberto RN Start: 07-25-2016 End: 07-31-2016 TUMS 500 MG CHEW as directed CALCIUM CARBONATE ANTACID [id number] Aviva Alberto RN cholecalciferol 5000 unt oral tablet (5 sources) Vitamin D Start: 07-25-2016 take 1 tablet by mouth once daily D3 MAXIMUM STRENGTH 5000 UNIT CAPS One tablet by mouth daily CHOLECALCIFEROL [id number] Aviva Alberto RN clopidogrel 75 mg oral tablet (10 sources) P2Y12 Platelet Inhibitor Start: 09-20-2016 End: 11-01-2016 take 1 tablet by mouth once daily PLAVIX 75 MG TABS One tablet by mouth daily CLOPIDOGREL BISULFATE [id number] Ubaldo Hassan MD colesevelam hydrochloride 625 mg oral tablet (10 sources) Bile Acid Sequestrant Start: 07-25-2016 End: 07-31-2016 take 3 tablets by mouth twice daily WELCHOL 625 MG TABS Three tablets by mouth twice a day COLESEVELAM HCL [id number] Ashley Livingston RN ergocalciferol 64982 unt oral tablet (10 sources) Provitamin D2 Compound Start: 07-25-2016 End: 07-31-2016 take 1 tablet by mouth two times weekly VITAMIN D (ERGOCALCIFEROL) 05510 UNIT CAPS One tablet by mouth twice weekly ERGOCALCIFEROL [id number] Aviva Alberto RN Start: 07-25-2016 End: 07-31-2016 take 1 tablet by mouth two times weekly VITAMIN D (ERGOCALCIFEROL) 87079 UNIT CAPS One tablet by mouth twice weekly ERGOCALCIFEROL 50774464883 Aviva Alberto RN fluticasone propionate 0.05 mg/actuat metered dose nasal spray (10 sources) Corticosteroid Start: 07-25-2016 End: 07-31-2016 FLUTICASONE PROPIONATE 50 MCG/ACT SUSP (0.05mg/inh) 1 spray each nostril once a day FLUTICASONE PROPIONATE [id number] Aviva Alberto RN Start: 07-25-2016 End: 07-31-2016 take 0.05 mg by inhalation once daily FLUTICASONE PROPIONATE 50 MCG/ACT SUSP (0.05mg/inh) 1 spray each nostril once a day FLUTICASONE PROPIONATE [id number] Aviva Alberto RN FLUTICASONE-SALMETEROL (10 sources) Corticosteroid, beta2-Adrenergic Agonist Start: 07-25-2016 End: 07-31-2016 ADVAIR DISKUS 100-50 MCG/DOSE AEPB Take as Directed FLUTICASONE-SALMETEROL [id number] Aviva Alberto RN Start: 07-25-2016 End: 07-31-2016 ADVAIR DISKUS 100-50 MCG/DOS E AEPB Take as Directed FLUTICASONE-SALMETEROL [id number] Ashley Livingston RN Start: 07-25-2016 ADVAIR DISKUS 100-50 MCG/DOSE AEPB Take as Directed FLUTICASONE-SALMETEROL [id number] Aviva Alberto RN furosemide 40 mg oral tablet (4 sources) Loop Diuretic Start: 05-06-2017 take 1 tablet by mouth once daily LASIX 40 MG TABS One tablet by mouth daily FUROSEMIDE [id number] Ubaldo Hassan MD garlic preparation 400 mg oral tablet (5 sources) Non-Standardized Food Allergenic Extract Start: 07-31-2016 take 1 tablet by mouth once daily GARLIC 400 MG TABS One tablet by mouth daily GARLIC-CALCIUM [id number] Ashley Livingston RN gemfibrozil 600 mg oral tablet (10 sources) Peroxisome Proliferator Receptor alpha Agonist Start: 07-25-2016 End: 11-01-2016 take 1 tablet by mouth twice daily GEMFIBROZIL 600 MG TABS One tablet by mouth twice daily GEMFIBROZIL [id number] Aviva Alberto RN hydroCHLOROthiazide 25 mg oral tablet (9 sources) Thiazide Diuretic Start: 11-01-2016 End: 05-06-2017 take 1 tablet by mouth once daily HYDROCHLOROTHIAZIDE 25 MG TABS One tablet by mouth daily HYDROCHLOROTHIAZIDE [id number] Ubaldo Hassan MD LOSARTAN POTASSIUM-HCTZ (10 sources) Thiazide Diuretic, Angiotensin 2 Receptor Camelia Start: 07-31-2016 End: 11-01-2016 take 1 tablet by mouth once daily HYZAAR 50-12.5 MG TABS One tablet by mouth daily LOSARTAN POTASSIUM-HCTZ [id number] Ubaldo Hassan MD Start: 07-31-2016 take 1 tablet by [facility] once daily HYZAAR 50-12.5 MG TABS One tablet by mouth daily LOSARTAN POTASSIUM-HCTZ [id number] Ubaldo Hassan MD Start: 07-31-2016 End: 11-01-2016 take 1 tablet by mouth once daily HYZAAR 50-12.5 MG TABS One tablet by mouth daily LOSARTAN POTASSIUM-HCTZ 11365725156 Ubaldo Hassan MD ibuprofen 200 mg oral tablet (5 sources) Nonsteroidal Anti-inflammatory Drug Start: 07-25-2016 IBUPROFEN 200 MG TABS as directed IBUPROFEN [id number] Aviva Alberto RN krill oil (5 sources) Start: 07-25-2016 take 1 tablet by mouth once daily [facility] OMEGA-3 KRILL OIL CAPS One tablet by mouth daily KRILL OIL CAPS 18808990515 Aviva Alberto RN losartan potassium 50 mg oral tablet (15 sources) Angiotensin 2 Receptor Camelia Start: 11-01-2016 take 1 tablet by mouth once daily LOSARTAN POTASSIUM 50 MG TABS One tablet by mouth daily LOSARTAN POTASSIUM [id number] Ubaldo Hassan MD Start: 07-25-2016 End: 07-31-2016 take 1 tablet by mouth once daily LOSARTAN POTASSIUM 50 MG TABS One tablet by mouth daily LOSARTAN POTASSIUM 04797821725 Ubaldo Hassan MD magnesium oxide 400 mg oral tablet (4 sources) Start: 05-06-2017 take 1 tablet by mouth once daily MAGNESIUM OXIDE 400 MG TABS One tablet by mouth daily MAGNESIUM OXIDE 63421452924 Ubaldo Hassan MD metoprolol tartrate 25 mg oral tablet (10 sources) beta-Adrenergic Camelia Start: 07-25-2016 End: 07-31-2016 take 1 tablet by mouth twice daily METOPROLOL TARTRATE 25 MG TABS One tablet by mouth twice daily METOPROLOL TARTRATE 97752818927 Aviva Alberto RN MULTIPLE VITAMINS-MINERALS (4 sources) Start: 07-25-2016 take 1 tablet by mouth once daily CENTRUM SILVER TABS One tablet by mouth daily MULTIPLE VITAMINS-MINERALS 11458490966 Aviva Alberto RN MULTIPLE VITAMINS-MINERALS (1 source) Start: 07-25-2016 take 1 tablet by mouth once daily CENTRUM SILVER TABS One tablet by mouth daily MULTIPLE VITAMINS-MINERALS [id number] Aviva Alberto RN levothyroxine sodium 0.15 mg oral tablet (5 sources) l-Thyroxine Start: 07-25-2016 take 1 tablet by mouth once daily LEVOTHYROXINE SODIUM 150 MCG TABS One tablet by mouth daily LEVOTHYROXINE SODIUM 04228088610 Aviva Alberto RN TIOTROPIUM BROMIDE MONOHYDRATE (10 sources) Anticholinergic Start: 07-25-2016 End: 07-31-2016 SPIRIVA HANDIHALER 18 MCG CAPS As Directed TIOTROPIUM BROMIDE MONOHYDRATE [id number] Ashley Livingston RN Start: 07-25-2016 End: 07-31-2016 SPIRIVA HANDIHALER 18 MCG CA PS As Directed TIOTROPIUM BROMIDE MONOHYDRATE 30726288564 Ashley Livingston RN Start: 07-25-2016 SPIRIVA HANDIH ALER 18 MCG CAPS As Directed TIOTROPIUM BROMIDE MONOHYDRATE 64281744901 Aviva Alberto RN vitamin B 12 (5 sources) Vitamin B12 Start: 07-25-2016 take 1 tablet by mouth once daily [facility] B-12 1000 MCG CR-TABS One tablet by mouth daily CYANOCOBALAMIN 39725872593 Aviva Alberto RN Problems Active Problems Problem [...] (1 source) Long-term drug therapy; 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: [Other detention (current) drug therapy] Onset: 07-31-2016 07-31-2016 Past or Other Problems Problem Classification Problem Date Documented Date Episodic/Chronic Coma, stupor, brain damage (5 sources) Daytime somnolence; 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: [Somnolence] Onset: 07-31-2016 07-31-2016 Episodic Malaise and fatigue (5 sources) Fatigue; 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: [Other fatigue] Onset: 07-25-2016 07-25-2016 Episodic Other aftercare (4 sources) Other detention (current) drug therapy; 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: [Other detention (current) drug therapy] Onset: 07-31-2016 07-31-2016 Episodic Other circulatory disease (5 sources) Electrocardiogram abnormal; 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: [Abnormal electrocardiogram [ECG] [EKG]] Onset: 07-31-2016 07-31-2016 Episodic Other lower respiratory disease (5 sources) Dyspnea; 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: [Shortness of breath] Onset: 07-31-2016 07-31-2016 Episodic Results Test Name Value Interpretation Reference Range Facility CBCon 07-12-2017 Erythrocyte distribution width Auto Ratio (RBC) 13.4 % Normal 11.5 - 14.5 [facility] Comment on above: Performed By: #### C BC ####[facility] [place] [address] Erythrocytes (RBC) 5.38 x10E12/L Normal 4.50 - 5.90 [facility] Comment on above: Performed By: #### C BC ####[facility] [place] [address] Hematocrit (HCT) 50.8 % Normal 41.0 - 52.0 [facility] Comment on above: Performed By: #### C BC ####[facility] [place] [address] Hemoglobin mass conc (Bld) 16.6 g/dL Normal 13.5 - 17.5 [facility] Comment on above: Performed By: #### C BC ####[facility] [place] [address] MCHC mass conc (RBC) 32.7 g/dL Normal 32.0 - 36.0 [facility] Comment on above: Performed By: #### C BC ####[facility] [place] [address] MCV 94 fL Normal 80 - 100 [facility] Comment on above: Performed By: #### C BC ####[facility] [place] [address] Nucleated erythrocytes 0.0 /100 WBC Normal 0.0-0.0 [facility] Comment on above: Performed By: #### C BC ####[facility] [place] [address] Platelets 145 10*3/uL Low 150 - 450 [facility] Comment on above: Performed By: #### C BC ####[facility] [place] [address] WBC (Leukocytes) 8.1 10*3/uL Normal 4.4 - 11.3 [facility] Comment on above: Performed By: #### C BC ####[facility] [place] [address] COMPREHENSIVE PANELon 2016 Alanine aminotransferase (ALT) 27 U/L Normal 10 - 52 [facility] Comment on above: Result Comment: Arely ents treated with Sulfasalazine may generate falsely decreased results for ALT. Performed By: #### C MP ####[facility] [place] [address] Albumin 4.2 g/dL Normal 3.4 - 5.0 [facility] Comment on above: Performed By: #### C MP ####[facility] [place] [address] Alkaline phosphatase (ALP) 65 U/L Normal 33 - 136 [facility] Comment on above: Performed By: #### C MP ####[facility] [address] Anion gap 16 mmol/L Normal 10 - 20 [facility] Comment on above: Performed By: #### C MP ####[facility] [place] [address] Aspartate aminotransferase (AST) 24 U/L Normal 9 - 39 [facility] Comment on above: Performed By: #### C MP ####[facility] [place] [address] Bicarbonate (HCO3) 29 mmol/L Normal 21 - 32 [facility] Comment on above: Performed By: #### C MP ####[facility] [address] Bilirubin (total) 0.6 mg/dL Normal 0.0 - 1.2 [facility] Comment on above: Performed By: #### C MP ####[facility] [address] Calcium 9.8 mg/dL Normal 8.6 - 10.6 [facility] Comment on above: Performed By: #### C MP ####[facility] [address] Chloride 99 mmol/L Normal 98 - 107 [facility] Comment on above: Performed By: #### C MP ####[facility] [place] [address] Creatinine 0.94 mg/dL Normal 0.50 - 1.30 [facility] Comment on above: Performed By: #### C MP ####[facility] [address] eGFR (non-black) mL/min/{1.73_m2} Normal >60 [facility] Comment on above: Performed By: #### C MP ####[facility] [place] [address] Result Comment: CALC ULATIONS OF ESTIMATED GFR ARE PERFORMED USING THE MDRD STUDY EQUATION FOR THE IDMS-TRACEABLE CREATININE METHODS. CLIN CHEM 2007;53:766-72 Glucose mass conc 107 mg/dL High 74 - 99 [facility] Comment on above: Performed By: #### C MP ####[facility] [address] Potassium molar conc 4.2 mmol/L Normal 3.5 - 5.3 [facility] [place] Comment on above: Performed By: #### C MP ####[facility] [address] Protein 7.3 g/dL Normal 6.4 - 8.2 [facility] Comment on above: Performed By: #### C MP ####[facility] [address] Sodium 140 mmol/L Normal 136 - 145 [facility] Comment on above: Performed By: #### C MP ####[facility] [place] [address] Urea nitrogen 23 mg/dL Normal 6 - 23 [facility] Comment on above: Performed By: #### C MP ####[facility] [place] [address] HEMOGLOBIN A1Con 07-12-2017 Glucose mass conc 128 mg/dL Normal [facility] Comment on above: Performed By: #### H BA1E ####[facility] [address] Hemoglobin A1c/Hemoglobin.total mass fraction (Bld) 6.1 % Normal [facility] Comment on above: Result Comment: Diag nosis of Diabetes-Adults Non-Diabetic: < or = 5.6% Increased risk for developing diabetes: 5.7-6.4% Diagnostic of diabetes: > or = 6.5%. Monitoring of Diabetes Age (y) Therapeutic Goal (%) Adults: >18 <7.0 Pediatrics: 13-18 <7.5 7-12 <8.0 0- 6 7.5-8.5 [employer]. Diabetes Care 33(S1), Sep 2009. Performed By: #### H BA1E ####[facility] [address] LIPID PANEL (CORONARY RISK 2 )on 07-12-2017 Cholesterol 201 mg/dL High 0 - 199 [facility] Comment on above: Result Comment: . AG E DESIRABLE BORDERLINE HIGH HIGH 0-19 Y 0 - 169 170 - 199 >/= 200 20-24 Y 0 - 189 190 - 224 >/= 225 >24 Y 0 - 199 200 - 239 >/= 240 All ranges are based on fasting samples. Specific therapeutic targets will vary based on patient-specific cardiac risk.. Pediatric guidelines reference:Pediatrics 2011, 128(S5). Adult guidelines reference: NCEP ATPIII Guidelines, KRIS 2001, 258:2486-97. Venipuncture immediately after or during the administration of Metamizole may lead to falsely low results. Testing should be performed immediately prior to Metamizole dosing. Performed By: #### L IPID ####[facility] [place] [address] Cholesterol in VLDL mass conc 66 mg/dL High 0 - 40 [facility] Comment on above: Performed By: #### L IPID ####[facility] [address] Cholesterol to HDL Ratio 4.5 {ratio} Normal [facility] Comment on above: Result Comment: REF VALUESDESIRABLE < 3.4HIGH RISK > 5.0 Performed By: #### L IPID ####[facility] [address] HDL Cholesterol 44.8 mg/dL Normal [facility] Comment on above: Result Comment: . AG E VERY LOW LOW NORMAL HIGH 0-19 Y < 35 < 40 40-45 ---- 20-24 Y ---- < 40 >45 ---- >24 Y ---- < 40 40-60 >60. Performed By: #### L IPID ####[facility] [address] LDL Cholesterol 90 mg/dL Normal 0 - 99 [facility] Comment on above: Result Comment: . JAY GREEN AGE DESIRABLE OPTIMAL HIGH HIGH VERY HIGH 0-19 Y 0 - 109 --- 110-129 >/= 130 ---- 20-24 Y 0 - 119 --- 120-159 >/= 160 ---- >24 Y 0 - 99 100-129 130-159 160-189 >/=190. Performed By: #### L IPID ####[facility] [address] NON-HDL CHOLESTEROL 156 mg/dL Normal [facility] Comment on above: Result Comment: AGE DESIRABLE BORDERLINE HIGH HIGH VERY HIGH 0-19 Y 0 - 119 120 - 144 >/= 145 >/= 160 20-24 Y 0 - 149 150 - 189 >/= 190 ---- >24 Y 30 MG/DL ABOVE LDL CHOLESTEROL GOAL. Performed By: #### L IPID ####[facility] [place] [address] Triglyceride 331 mg/dL High 0 - 149 [facility] Comment on above: Result Comment: . AG E DESIRABLE BORDERLINE HIGH HIGH VERY HIGH 0 D-90 D 19 - 174 ---- ---- ----91 D- 9 Y 0 - 74 75 - 99 >/= 100 ---- 10-19 Y 0 - 89 90 - 129 >/= 130 ---- 20-24 Y 0 - 114 115 - 149 >/= 150 ---- >24 Y 0 - 149 150 - 199 200- 499 >/= 500. Venipuncture immediately after or during the administration of Metamizole may lead to falsely low results. Testing should be performed immediately prior to Metamizole dosing. Performed By: #### L IPID ####[facility] [address] TSH WITH REFLEX TO FREE T4 I F ABNORMALon 07-12-2017 Thyroid stimulating hormone (TSH) 3.88 m[IU]/L Normal 0.44 - 3.98 [facility] Comment on above: Result Comment: TSH testing is performed using different testing methodology at [facility] than at other [facility]. Direct result comparisons should only be made within the same method.. Patients receiving more than 5 mg/day of biotin may have interference in test results. A sample should be taken no sooner than eight hours after previous dose. Contact [phone] for additional information. Performed By: #### T HYDS ####[facility] [address] VITAMIN B12on 07-12-2017 Cobalamins (Vitamin B12) 1445 pg/mL High 211 - 911 [facility] Comment on above: Performed By: #### V TB12 ####[facility] [address] VITAMIN D, 25-HYDROXYon 06-17 VITAMIN D, 25-HYDROXY 33 ng/mL Normal [facility] Comment on above: Result Comment: .DEF ICIENCY: < 20 NG/MLINSUFFICIENCY: 20-29 NG/MLOPTIMUM LEVEL: 30-80 NG/MLPOSSIBLE TOXICITY: > 80 NG/MLTHIS ASSAY ACCURATELY QUANTIFIES THE SUM OFVITAMIN D3, 25-HYDROXY AND VIT D2,25-HYDROXY. Performed By: #### V TDOH ####[facility] [place] [address] Chart Maintenanceon 05-06-20 17 Left ventricular Ejection fraction 65 % Invalid Interpretation Code [facility] Work Phone: [phone] Office Visiton 05-06-2017 Dietary management education, guidance, and counseling (procedure) yes Invalid Interpretation Code [facility] Work Phone: [phone] Documentation of current medications (procedure) Done Invalid Interpretation Code [facility] Work Phone: [phone] Fall risk assessment No Invalid Interpretation Code [facility] Work Phone: [phone] Protein mass conc Done [facility] Work Phone: [phone] Office Visiton 11-01-2016 Dietary management education, guidance, and counseling (procedure) yes Invalid Interpretation Code [facility] Work Phone: [phone] Documentation of current medications (procedure) Done Invalid Interpretation Code [facility] Work Phone: [phone] Lab Report: Blood Gas Specim en Typeon 09-28-2016 arterial blood gas FREEDOM Invalid Interpretation Code [facility] Work Phone: [phone] BLD GAS TYPE FREEDOM [facility] Work Phone: [phone] Lab Report: PO2 I-Angelo Oxygen in arterial blood 76 mm[Hg] Invalid Interpretation Code 75-100 [facility] Work Phone: [phone] Oxygen ppres (Bld) 76 mm[Hg] 75-100 [facility] Work Phone: [phone] Lab Report: SO2 ISTATon 09-16 O2 saturation 95 % Invalid Interpretation Code 95-99 [facility] Work Phone: [phone] SaO2% mass fraction (BldA) 95 % 95-99 [facility] Work Phone: [phone] Lab Report: VBG PO2 I-Angelo 09-28-2016 oxygen, partial pressure, venous blood 36 mm[Hg] Invalid Interpretation Code 25-40 [facility] Work Phone: [phone] VBG PO2 I-STAT 36 mm[Hg] 25-40 [facility] Work Phone: [phone] Lab Report: VBG SO2 ISTATon 09-28-2016 saturation venous oxygen 67 % Invalid Interpretation Code 50-70 [facility] Work Phone: [phone] VBG SO2 ISTAT 67 % 50-70 [facility] Work Phone: [phone] Lab Report: Basic Metabolic Profile (BMP)on 09-20-2016 Anion gap 10 mmol/L Invalid Interpretation Code 5-15 [facility] Work Phone: [phone] Anion gap molar conc 10 mmol/L 5-[address] [facility] Work Phone: [phone] BUN/Creatinine Ratio 16.7 RATIO Invalid Interpretation Code 10-20 [facility] Work Phone: [phone] Calcium 9.3 mg/dL Invalid Interpretation Code 8.5-10.1 [facility] Work Phone: [phone] Chloride 102 mmol/L Invalid Interpretation Code 98-107 [facility] Work Phone: [phone] CO2 29.0 mmol/L Invalid Interpretation Code 21.0-32.0 [facility] Work Phone: [phone] CO2 ppres (BldV) 29.0 mmol/L 21.0-32.0 [facility] Work Phone: [phone] Creatinine 1.08 mg/dL Invalid Interpretation Code 0.70-1.30 [facility] Work Phone: [phone] eGFR (non-black) 87 mL/min/{1.73_m2} Invalid Interpretation Code >60 [facility] Work Phone: [phone] eGFR (non-black) 72 mL/min/{1.73_m2} Invalid Interpretation Code >60 [facility] Work Phone: [phone] EST GFR - AA 87 mL/min >60 [facility] Work Phone: [phone] Glucose 112 mg/dL High 70-110 [facility] Work [phone] Glucose mass conc 112 mg/dL High 70-110 [facility] Work Phone: [phone] Potassium 4.0 mmol/L Invalid Interpretation Code 3.5-5.1 [facility] Work [phone] Sodium 141 mmol/L Invalid Interpretation Code 136-145 [facility] Work [phone] Urea nitrogen 18 mg/dL Invalid Interpretation Code 7-18 [facility] Work Phone: [phone] Lab Report: CBC-Complete Blo od Cnt No Diffon 09-20-2016 Erythrocyte distribution width Ratio (RBC) 13.7 % 11.6-14.6 [facility] Work Phone: [phone] Erythrocyte distribution width Ratio (RBC) 45.3 fL High 35.1-43.9 [facility] Work Phone: [phone] Erythrocytes (RBC) 5.66 10*6/uL Invalid Interpretation Code 4.6-6.2 [facility] Work Phone: [phone] Hematocrit (HCT) 51.7 % Invalid Interpretation Code 40-54 [facility] Work Phone: [phone] Hematocrit Volume Fraction (Bld) 51.7 % 40-54 [facility] Work Phone: [phone] Hemoglobin (HGB) 17.4 g/dL High 13.0-16.5 [facility] Work Phone: [phone] MCH 30.7 pg Invalid Interpretation Code 27.0-32.0 [facility] Work Phone: [phone] MCH Entitic mass (RBC) 30.7 pg 27.0-32.0 [facility] Work Phone: [phone] MCHC 33.7 G/GL Invalid Interpretation Code 32-36 [facility] Work Phone: [phone] MCHC mass conc (RBC) 33.7 G/GL 32-[address] [facility] Work Phone: MCV 91.3 fL Invalid Interpretation Code 80-94 [facility] Work Phone: [phone] MCV Entitic volume (RBC) 91.3 fL 80-94 [facility] Work Phone: [phone] Platelet mean volume Entitic volume (Bld) 11.7 fL 6.2-12.0 [facility] Work Phone: [phone] Platelets 181 10*3/mm3 Invalid Interpretation Code 150-450 [facility] Work Phone: [phone] Platelets #/vol (Bld) 181 10*3/mm3 150-450 [facility] Work Phone: [phone] PMV by Kassidy 11.7 fL Invalid Interpretation Code 6.2-12.0 [facility] Work Phone: [phone] RBC #/vol (Bld) 5.66 10*6/uL 4.6-6.2 [facility] Work Phone: [phone] RDW-CA 13.7 % Invalid Interpretation Code 11.6-14.6 [facility] Work Phone: [phone] red blood cell distribution width, size density 45.3 fL High 35.1-43.9 [facility] Work Phone: [phone] WBC #/vol (Bld) 8.5 10*3/uL 4.4-11.0 [facility] Work Phone: [phone] WBC (Leukocytes) 8.5 10*3/uL Invalid Interpretation Code 4.4-11.0 [facility] Work Phone: [phone] Lab Report: Partial Thrombop last Timeon 09-20-2016 aPTT 32.8 s Invalid Interpretation Code 24.1-36.2 [facility] Work Phone: [phone] Lab Report: Prothrombin Time w/INRon 09-20-2016 Coagulation tissue factor induced in platelet poor plasma 12.8 s Invalid Interpretation Code 11.7-14.9 [facility] Work Phone: [phone] INR Coag RelTime (PPP) 1.0 {INR} [facility] Work Phone: INR in blood by coagulation 1.0 {INR} Invalid Interpretation Code [facility] Work Phone: [phone] Replaced Document: Adriane WINSTON Observationson 09-20-2016 EKG QRS axis -63 deg [facility] Work Phone: [phone] electrocardiogram interpretation Sinus Rhythm -Left axis -anterior fascicular block. ABNORMAL Invalid Interpretation Code [facility] Work Phone: [phone] GE use only - for LinkLogic import when terms are not otherwise specified 425 ms Invalid Interpretation Code [facility] Work Phone: [phone] Interpretation Sinus Rhythm -Left axis -anterior fascicular block. ABNORMAL [facility] Work Phone: [phone] P Mccormick 46 deg [facility] Work Phone: [phone] P wave axis, electrocardiogram 46 deg Invalid Interpretation Code [facility] Work Phone: [phone] OR Interval 152 ms [facility] Work Phone: [phone] OR interval, electrocardiogram 152 ms Invalid Interpretation Code [facility] Work Phone: [phone] Pulse (Heart Rate) 88 /min Invalid Interpretation Code [facility] Work Phone: [phone] QRS axis, electrocardiogram -63 deg Invalid Interpretation Code [facility] Work Phone: [phone] QRS Duration 108 ms [facility] Work Phone: [phone] QRS duration, electrocardiogram 108 ms Invalid Interpretation Code [facility] Work Phone: [phone] QT Interval new path ms [facility] Work Phone: [phone] QT interval, electrocardiogram new path ms Invalid Interpretation Code [facility] Work Phone: [phone] QTc Bhatia 425 ms [facility] Work Phone: [phone] T Mccormick 47 deg [facility] Work Phone: [phone] T wave axis, electrocardiogram 47 deg Invalid Interpretation Code [facility] Work Phone: [phone] Office Visiton 07-31-2016 Tobacco smoking status NHIS Former smoker [facility] Work Phone: [phone] Tobacco use CPHS Former smoker Invalid Interpretation Code [facility] Work Phone: [phone] Clinical Lists Update: Sally al 07-05-2016 Alanine aminotransferase (ALT) 17 U/L Invalid Interpretation Code [facility] Work Phone: [phone] Alkaline phosphatase (ALP) 57 U/L Invalid Interpretation Code [facility] Work Phone: [phone] ALP enzyme act/vol (Bld) 57 U/L [facility] Work Phone: [phone] Aspartate aminotransferase (AST) 21 U/L Invalid Interpretation Code [facility] Work Phone: [phone] Bilirubin (total) 0.7 mg/dL Invalid Interpretation Code [facility] Work Phone: [phone] Cholesterol 172 mg/dL Invalid Interpretation Code [facility] Work Phone: [phone] HbA1c 5.8 % Invalid Interpretation Code [facility] Work Phone: [phone] HDL Cholesterol 36.5 mg/dL Invalid Interpretation Code [facility] Work Phone: [phone] LDL Cholesterol 91 mg/dL Invalid Interpretation Code [facility] Work Phone: [phone] Protein 7.0 g/dL Invalid Interpretation Code [facility] Work Phone: [phone] Thyroid stimulating hormone (TSH) 0.22 u[iU]/mL Invalid Interpretation Code [facility] Work Phone: [phone] Triglyceride 224 mg/dL Invalid Interpretation Code [facility] Work Phone: [phone] Vital Signs Date Time Vital Sign Value Performing Clinician Donna santos 05-21-2017 08:41-0400 BP Diastolic 78 mm[Hg] [facility] Work Phone: 05-21-2017 08:41-0400 BP Systolic 120 mm[Hg] [facility] Work Phone: 05-21-2017 08:41-0400 Pulse (Heart Rate) 84 /min [facility] Work Phone: 05-21-2017 08:41-0400 Respiratory Rate 21 /min [facility] Work Phone: 05-21-2017 08:41-0400 Weight 126.51 kg Otis Aguila [facility] Work Phone: 05-06-2017 07:21-0400 BMI (Body Mass Index) 39.74 kg/m2 [facility] Work Phone: 05-06-2017 07:21-0400 BP Diastolic 70 mm[Hg] Keke [place] [facility] Work Phone: 05-06-2017 07:21-0400 BP Systolic 124 mm[Hg] [facility] Work Phone: 05-06-2017 07:21-0400 Height 177.8 cm Keke South [facility] Work Phone: 05-06-2017 07:21-0400 Pulse (Heart Rate) 80 /min Keke [place] [facility] Work Phone: 05-06-2017 07:21-0400 Respiratory Rate 26 /min [facility] Work Phone: 05-06-2017 07:21-0400 Weight 125.65 kg [facility] Work Phone: 11-01-2016 12:58-0500 BMI (Body Mass Index) 39.88 kg/m2 Ubaldo Hassan MD [facility] Work Phone: 11-01-2016 12:58-0500 BP Diastolic 64 mm[Hg] Ubaldo Hassan MD [facility] Work Phone: 11-01-2016 12:58-0500 BP Systolic 140 mm[Hg] Ubaldo Hassan MD [facility] Work Phone: 11-01-2016 12:58-0500 BSA (Body Surface Area) 2.4 m2 Ubaldo Hassan MD [facility] Work Phone: 11-01-2016 12:58-0500 Height 177.8 cm Ubaldo Hassan MD [facility] Work Phone: 11-01-2016 12:58-0500 Pulse (Heart Rate) 96 /min Ubaldo Hassan MD [facility] Work Phone: 11-01-2016 12:58-0500 Pulse Oximetry 96 % Ubaldo Hassan MD [facility] Work Phone: 11-01-2016 12:58-0500 Respiratory Rate 24 /min Ubaldo Hassan MD [facility] Work Phone: 11-01-2016 12:58-0500 Weight 126.1 kg Ubaldo Hassan MD [facility] Work Phone: 09-20-2016 15:35-0500 Heart rate 88 /min Keke [place] [facility] Work Phone: Procedures Date Procedure Procedure Detail Performing Clinician Start: 05-21-2017 End: 05-21-2017 Follow Up BP Check Ubaldo Hassan MD Work Phone: Start: 05-06-2017 End: 05-06-2017 Dietary management education, guidance, and counseling Keke [place] Start: 05-06-2017 End: 05-06-2017 KARTHIKEYAN Hassan MD Work Phone: Start: 05-06-2017 End: [...] Author Start: 11-04-2017 End: 11-04-2017 Appointment Appointment [facility] Work Phone: Start: 05-21-2017 End: 05-21-2017 Appointment Appointment [facility] Work Phone: Start: 05-21-2017 End: 05-06-2017 Follow Up BP Check Follow Up BP Check [facility] Phone: Start: 05-06-2017 End: 05-06-2017 Appointment Appointment [facility] Work Phone: Start: 05-06-2017 End: 05-06-2017 KARTHIKEYAN NAPIER [facility] Work Phone: Start: 05-06-2017 End: 05-06-2017 Follow Up Appt 6 months Follow Up Appt 6 months [facility] Work Phone: Start: 05-06-2017 End: 05-21-2017 Pulmonary Referral [facility] Work Phone: Start: 11-01-2016 End: 04-30-2017 KARTHIKEYAN NAPIER [facility] Work Phone: Start: 11-01-2016 End: 04-30-2017 Follow Up Appt 6 months Follow Up Appt 6 months [facility] Work Phone: Start: 11-01-2016 End: 11-01-2016 Pulmonary stress test/simple Pulmonary stress testing; simple (eg, 6-minute walk) [facility] Work Phone: Start: 09-20-2016 End: 09-20-2016 *BMP *BMP [facility] Work Phone: Start: 09-20-2016 End: 09-20-2016 aPTT *PTT-Partial Thromboplastin Time [facility] Work Phone: Start: 09-20-2016 End: 09-20-2016 aPTT Coag time (PPP) *PTT-Partial Thromboplastin Time [facility] Work Phone: Start: 09-20-2016 End: 09-20-2016 CBC W Auto Differential panel - Blood *CBC without Diff [facility] Work Phone: Start: 09-20-2016 End: 09-28-2016 Chest x-ray X-Ray, Chest, PA & Lateral [facility] Work Phone: Start: 09-20-2016 End: 09-20-2016 Coagulation factor induced.INR assay in platelet poor plasma *PT/INR [facility] Work Phone: Start: 09-20-2016 End: 09-20-2016 KARTHIKEYAN NAPIER [facility] Work Phone: Start: 09-20-2016 End: 09-20-2016 Electrocardiogram, complete EKG (In office) [facility] Work Phone: Start: 09-20-2016 End: 09-20-2016 Follow Up Appt 1 month Follow Up Appt 1 month [facility] Work Phone: Start: 09-20-2016 End: 09-20-2016 Left & Right Heart Cath Left & Right Heart Cath [facility] Work Phone: Start: 07-31-2016 End: 09-04-2016 KARTHIKEYAN NAPIER [facility] Work Phone: Start: 07-31-2016 End: 07-31-2016 Echocardiography Echocardiogram (complete) [facility] Work Phone: Start: 07-31-2016 End: 08-03-2016 Electrocardiogram, complete EKG (In office) [facility] Work Phone: Start: 07-31-2016 End: 09-04-2016 Follow Up Appt 1 month Follow Up Appt 1 month [facility] Work Phone: Start: 07-31-2016 End: 07-31-2016 Stress Echocardiogram - Dobutamine Stress Echocardiogram - Dobutamine [facility] Work Phone: Progress note 11-27-2021 Note Date & Type Note Facility 11-27-2021 Note HNO ID: [id number] Author: iAdee Monterroso Ma Service: ? Author Type: ? Type: Progress Notes Filed: 11/27/2021 3:34 PM Note Text: PCP updated. Aidee Monterroso Ma [facility] Progress note 11-27-2021 Note Date & Type Note Facility 11-27-2021 Note HNO ID: [id number] Author: Gemini Varghese RN Service: ? Author Type: Registered Nurse Type: Progress Notes Filed: 11/27/2021 3:34 PM Note Text: Patient calls in to let provider know that he has changed providers. Current PCP is Dr. Melina Agosto. Gemini Varghese RN [facility] Progress note 11-27-2021 Note Date & Type Note Facility 11-27-2021 Note HNO ID: [id number] Author: Aidee Monterroso Ma Service: ? Author [...] Payer: Payor: [employer]VANTAGE / Plan: [place] MEDICARE / Product Type: HMO / Care [...] Monterroso Ma November 27, 2021 1:01 PM [facility] Progress note 11-27-2021 Note Date & Type Note Facility 11-27-2021 Note HNO ID: [id number] Author: Aidee Monterroso Ma Service: ? Author Type: ? Type: Progress Notes Filed: 11/27/2021 12:59 PM Note Text: See outreach encounter. Aidee Monterroso Ma [facility] Clinical Note 11-27-2021 Note Date & Type Note Facility 11-27-2021 Note Patient Outreach (FA MPWS) DEANDREAPARNA Corral ([id number]) 1945 M Date Time Provider Department 11/27/21 [...] Payer: Payor: [employer] MED[employer]ARE ADVANTAGE / [place] / Product Type: HMO / Care [...] Assessed Reason for Visit: PHMA/Care Gap Outreach [2205] Prescriptions as of 11/27/2021 - tamsulosin ER [...] Meds Comments as of 08/25/2019: Turmeric, Tums, Fombell-3, Garligue, Yael Root - daily. Problem List As Of Date 11/27/2021 Noted Resolved SYEDA (obstructive sleep apnea) [G47.33] COPD (chronic obstructive pulmonary disease) [J* Thyroid disorder [E07.9] Bronchitis [J40] Asbestosis [J61] Hypertension, essential [I10] 08/26/2020 Hypothyroidism, acquired [E03.9] 08/26/2020 Encounter Status:Closed by AIDEE MONTERROSO MA on 11/27/21 [facility] Clinical Note 11-27-2021 Note Date & Type Note Facility 11-27-2021 Note Patient Outreach (FA MPWS) APARNA CARRERA ([id number]) 1945 M Date Time Provider Department 11/27/21 [...] Sood, please remove name from PCP field. JASON Mancilla Ma 11/27/2021 12:59 PM Signed See outreach [...] cholesterol [E78.00] Order(s):TSH BLD [SQTSH] Order #: [id number] FUTURE COMP METABOLIC PANEL [SQCMP] Order #: [id number] FUTURE LIPID PANEL BASIC [SQLIPB] Order #: [id number] FUTURE HGB A1C [OJLSF2E] Order #: [id number] FUTURE Prescriptions as of 11/27/2021 - tamsulosin [...] Meds Comments as of 08/25/2019: Turmeric, Tums, Fombell-3, Garligue, Yael Root - daily. Problem List As Of Date 11/27/2021 Noted Resolved SYEDA (obstructive sleep apnea) [G47.33] COPD (chronic obstructive pulmonary disease) [J* Thyroid disorder [E07.9] Bronchitis [J40] Asbestosis [J61] Hypertension, essential [I10] 08/26/2020 Hypothyroidism, acquired [E03.9] 08/26/2020 Encounter Status:Closed by AIDEE MONTERROSO MA on 11/27/21 [facility] Progress note 11-27-2021 Note Date & Type Note Facility 11-27-2021 Note HNO ID: [id number] Author: Sharmila Thakur APRN.URSZULA Service: ? Author Type: Nurse Practitioner Type: Progress Notes Filed: 11/27/2021 12:59 PM Note Text: STAMP Please reach out to patient for overdue appointment for chronic disease management with myself, Dr. Sood, or [facility]. Labs are ordered. If he/she is no longer following with Dr. Sood, please remove name from PCP field. Sharmila Thakur APRN.[employer] [facility] Summary Purpose Family History No Family History Records FoundNo Family History Records Found Advance Directives No Advanced Directives Records FoundNo Advanced Directives Records Found Additional Source Comments (unrecognized sect ion and content) No Status Records FoundNo Status Records Found INFORMATION SOURCE (unrecogn ized section and content) DATE CREATED AUTHOR 03/11/2018 [facility] DATE CREATED AUTHOR AUTHOR'S ORGANIZ ATION 12/06/2021 [facility] FOR RECORDS PERTAINING TO PATIENTS WHO [...] BE BASED ON THE PRIMARY CLINICAL RECORDS. [facility] [employer] provides no warranty or guarantee of the accuracy or completeness of information in this document.
[2024-07-15 12:04] LABS: ALB/GLOB Ratio 1.1 RATIO (0.9-2.4); AST(SGOT) 11 U/L (15-37); Alanine Aminotransfer ALT/SGPT 25 U/L (16-61); Albumin, Serum 3.9 g/dL (3.2-5.0); Alkaline Phosphatase 83 U/L (45-117); Anion Gap 8 (5-15); BUN 21 mg/dL (7-18); BUN/Creat Ratio 21.1 RATIO (10-20); Calcium,Total 9.6 mg/dL (8.5-10.1); Chloride 100 mmol/L (98-107); Cholesterol 206 mg/dL (200); EST Glomerular Filtration Rate 77 mL/min (>60); Est Glom Filt Rate - Afr Amer 93 mL/min (>60); Free T3 2.8 pg/mL (2.18-3.98); Globulin 3.6 g/dL (2.2-4.2); Glucose 127 mg/dL (74-106); High Density Lipoprotein 50 mg/dL; Magnesium 2.1 mg/dL (1.6-2.6); Potassium 3.7 mmol/L (3.5-5.1); Protein, Total 7.5 g/dL (6.4-8.2); Sodium Level 137 mmol/L (136-145); T4 Free Direct 1.09 ng/dL (0.76-1.46); Thyroid Stim Hormone (TSH) 0.386 uIU/mL (0.358-3.740); Triglycerides 194 mg/dL; Very Low Density Lipoprotein 39 mg/dL (5-40)
[2024-07-15 12:55] LABS: Hemoglobin A1c 5.9 % (3.8-5.6)
== END | disposition home or self-care (01) ==
LOC: LAB 10:57
PROVIDERS: PCP Internal Medicine; Referring Provider Physician Assistant Medical; Visit Provider Physician Assistant Medical
DX: I10 Essential (primary) hypertension (principal); E66.01 Morbid (severe) obesity due to excess calories; G57.00 Lesion of sciatic nerve, unspecified lower limb; R21 Rash and other nonspecific skin eruption; G47.33 Obstructive sleep apnea (adult) (pediatric); D58.2 Other hemoglobinopathies; G62.9 Polyneuropathy, unspecified; R06.09 Other forms of dyspnea; R07.9 Chest pain, unspecified; E55.9 Vitamin D deficiency, unspecified; R73.9 Hyperglycemia, unspecified
CPT/HCPCS: 36415; 80053; 80061; 82306; 82607; 83036; 83735; 83880; 84439; 84443; 84481; 85025

== ENCOUNTER → 2024-07-22 | Outpatient (CLI) | payer MEDICARE, SELFPAY | END | disposition home or self-care (01) | LOC: CVS 06:00 | PROVIDERS: PCP Internal Medicine; Referring Provider Physician Assistant Medical; Visit Provider Physician Assistant Medical | DX: R07.9 Chest pain, unspecified (principal); R06.09 Other forms of dyspnea | CPT/HCPCS: 78452; 93017; A9500; A4216; J2785 ==

== ENCOUNTER 2024-07-28 10:58 | Observation (INO) | payer MEDICARE, SELFPAY ==
--- NOTE | 2024-07-23 11:05 | RAD_ITS ---
INDICATION: FORMAN EXAMINATION/TECHNIQUE: X-RAY - XR Chest 2 Views COMPARISON: Prior study dated: 04/05/2022 FINDINGS: LINES/DEVICES: None. LUNGS: Elevated left hemidiaphragm. No consolidation, edema or effusion. No pneumothorax. MEDIASTINUM AND CARDIOVASCULAR STRUCTURES: Cardiac silhouette not enlarged. Central airways and mediastinal contour are unremarkable. BONES AND SOFT TISSUES: No acute abnormality. Degenerative change throughout the spine. RAD/Chest PA and Lateral IMPRESSION: No acute pulmonary finding. Chronic elevation of the left hemidiaphragm. Electronically Signed: Luiz Miller MD at 11:18 EST ,
[2024-07-23 11:11] LABS: Partial Thromboplast Time 26.7 Seconds (24.1-36.2)
[2024-07-24 08:58] VITALS: BMI 38.7
[2024-07-28] VITALS (9 sets, daily range): BP systolic 122–156; BP diastolic 70–87; PULSE 64–72; RESP 18; TEMP 36.3–36.6; O2SAT 94–99; BMI 39.9
--- NOTE | 2024-07-28 09:24 | CL.D_ITS ---
Patient Name: APARNA CARRERA Study Date: 07/28/2024 Performing: Carlos Raza MD Ht: 70 inches 177.8 cm : 1945 Wt: 270 lbs 122.47 kg Age: 78 Gender: male BSA: 2.37 PROCEDURE(S) PERFORMED [id number])LHC/COR/LV CLINICAL PROFILE AND INDICATIONS Indications: Suspected CAD Heart Failure: None Stress/Imaging Date: 07/22/24Stress Test with SPECT MPI: Positive Intermediate Risk CAD Presentations: Unstable angina. CONCLUSIONS Single-vessel disease involving the circumflex artery with minimal disease in the rest of the vessels and preserved ejection fraction RECOMMENDATIONS Referred for immediate PCI DESCRIPTION OF PROCEDURE The patient arrived to the procedure lab. The risks and benefits of the procedure as well as a full description of our services here and current unavailability of surgical backup were fully explained to the patient and/or their significant other prior to the catheterization. The Timeout was completed, verifying the correct patient and procedure. The patient's procedural site was prepped and draped in the usual fashion. Local anesthetic was given subcutaneously to right radial region with Lidocaine 2%. Using a modified Seldinger technique, arterial access was obtained via the right radial artery, a 6Fr sheath was inserted. Left Coronary Artery selective angiography was performed in multiple views using a 5 Fr. 4.0 Chester catheter. Right Coronary Artery selective angiography was then performed in multiple views using a 5 Fr. 4.0 Chester catheter. Left Ventriculography was performed in SIN projection using a 5 Fr. Pigtail catheter. LV to AO pullback pressures were then recorded. CORONARY ANGIOGRAPHY DOMINANCE: Right Dominant LEFT HEART ASSESSMENT Left Ventricular Ejection Fraction: by LV Gram 60 % Normal LV wall motion Normal Left Ventricular systolic function LEFT MAIN: Angiographically normal LEFT ANTERIOR DESCENDING ARTERY: No significant disease noted CIRCUMFLEX ARTERY: Nondominant vessel with a 70 to 80% stenosis of the first obtuse marginal branch. RIGHT CORONARY ARTERY: Mild luminal irregularities COMPLICATIONS PROCEDURE MEDICATIONS Versed 1 mg IV Fentanyl 50 mcg IV Versed 1 mg IV Oxygen: 2 L/min via nasal cannula Aspirin (325mg) 1 Tabs PO @ 07/28/2024 07:20:16 Heparin given IA 07/28/2024 08:27:54 Verapamil 2.5mg, Ntg 100mcgs, 3000 units of Heparin given IA 07/28/2024 08:27:54 SUMMARY OF HEMODYNAMIC DATA Time AIR REST ECG 07:20:38 AO 111/56 (76) SA 08:43:44 LV 104/1, 7 08:53:16 LV 106/1, 6 08:53:22 LV 110/0, 11 08:53:58 LV 107/1, 6 08:54:05 LVp 121/0, 12 08:54:11 AOp 119/52 (78) 08:54:16 Art 115/47 (70) 09:02:38 Signed By Carlos Raza MD On 07/28/2024 09:23:31 Carlos Raza MD
--- NOTE | 2024-07-28 11:00 | EKG12_ITS ---
Test Reason : AM EKG Blood Pressure : */* mmHG Vent. Rate : 67 BPM Atrial Rate : 67 BPM P-R Int : 172 ms QRS Dur : 96 ms QT Int : 436 ms P-R-T Axes : 47 -61 38 degrees QTcB Int : 460 ms Normal sinus rhythm Left axis deviation Abnormal ECG When compared with ECG of 28-Jul-2024 10:56, MANUAL COMPARISON REQUIRED DATA IS UNCONFIRMED Confirmed by JENNY SHAIKH, CARLOS ([id number]), dictionary editor EDENILSON MOBLEY ([id number]) on 07/29/2024 2:12:44 PM Referred By: Carlos Raza Confirmed By: CARLOS RAZA MD
--- NOTE | 2024-07-28 14:20 | CRPHASE1_ITS ---
Patient Communication Patient Information PHII Cardiac Rehab Discussed with Patient:: Yes Guide to Cardiac Rehab Given to Patient:: Yes Cardiac Rehab Facility Choice List Given to Patient:: Yes Communication to Cardiac Rehab Choice Program [facility] PHII:: Communication Given to CR Refer Phase II Cardiac Rehab:: Yes Sessions:: 36 sessions - 3 days/wk, 12 weeks Cardiac Rehabilitation Info Program Information Cardiac Rehabilitation Program Information: Cardiac Rehab The cardiac rehab team at [facility] consists of highly skilled exercise physiologists, nurses, respiratory therapists and physicians working together with you. Our purpose is to help you have a full recovery and achieve the goals you set for yourself. Over the years many of our patients have returned to activities they assumed they would never do again! We can help restore your confidence and motivation to make lifestyle changes that can have a significant impact on your health and quality of life! We can help answer questions and concerns you may have about exercise, lifestyle, medications, diet, stress and anxiety which are common following a hospitalization. WE monitor ECG and vital signs during exercise and discuss your progress with you and report to your physician(s). Cardiac Rehab is proven to help reduce readmissions, improve functional capacity and lower recurrence of problems with your heart. Our Cardiac Rehab program is Certified by the [place] [employer]-Vascular and Pulmonary [employer] (AACVPR) and Accredited by the [place] [employer] through our [facility]. You can contact us at . We invite you to call us with your questions or to get started in our program. If you have other questions or concerns be sure to ask your physician/provider during your follow-up visit. WE look forward to seeing you!
--- NOTE | 2024-07-28 14:21 | CRPH1.INSTRU ---
General Education Discussed with Patient CAD and cardiac anatomy and function:: Patient communicates acknowledgment and Needs reinforcement Explanation of diagnoses and procedures:: Patient communicates acknowledgment and Needs reinforcement Sign/Symptoms of DE:: Patient communicates acknowledgment and Needs reinforcement Antiplatelet therapy: Patient communicates acknowledgment and Needs reinforcement Proper use of NTG-SL: Patient communicates acknowledgment and Needs reinforcement Emergency procedures and activation of EMS: Patient communicates acknowledgment and Needs reinforcement Compliance of all prescribed medications: Patient communicates acknowledgment and Needs reinforcement Dyslipidemia Risk Factors Patient Dyslipidemia Risk Factors Are:: Total Cholesterol, Triglycerides, HDL and LDL Recommendations Recommendations Include:: Lipid profile not available Response Code Dyslipidemia Response Code:: Patient communicates acknowledgment and Needs reinforcement Overweight/Obesity Risk Factors Patient Overweight/Obesity Risk Factors Are:: Obesity - > or = 30 Recommendations Recommendations Include:: Weight loss of 5-10%, Reduced calorie diet and Exercise 5-7 times/week Response Code Overweight/Obesity:: Patient communicates acknowledgment and Needs reinforcement Hypertension Recommendations Recommendations Include:: BP <130/80 if diabetic, Decrease/maintain normal body weight and Moderation of ETOH Response Code Hypertension:: Patient communicates acknowledgment and Needs reinforcement Heart Disease Risk Factors Patient Heart Disease Risk Factors Are:: Previous cardiac event Recommendations Recommendations Include:: Educated family members of their risk and Educated family members of importance of prevention of heart disease Response Code Heart Disease Response Code:: Patient communicates acknowledgment and Needs reinforcement Diabetes Recommendations Recommendations Include:: Maintain fasting blood sugars 70-110 md/dL, Maintain HgbA1c of 6% or less, Monitor blood sugar as prescribed and Decrease/maintain body weight Response Code Diabetes:: Patient communicates acknowledgment and Needs reinforcement Sedentary Risk Factors Patient Sedentary Risk Factors Are:: Lack of regular exercise Recommendations Recommendations Include:: Aerobic exercise 5-7 times/week for 20-30 minutes continuously, Benefits of regular exercise, Discussed home walking program and Monitored Outpatient Cardiac Rehab Response Code Sedentary Response Code:: Patient communicates acknowledgment and Needs reinforcement
[2024-07-28] MEDS: TICAGRELOR 90 MG TABLET PO (19:38)
[2024-07-29 03:00] VITALS: BP 128/64; PULSE 69; RESP 18; TEMP 36.2; O2SAT 98
[2024-07-29] MEDS: Levothyroxine 137 MCG Tablet PO (05:47)
[2024-07-29 06:45] LABS: Hematocrit 49.7 % (40-54); Hemoglobin 16.5 g/dL (13.0-16.5); Mean Corp Hgb Conc 33.2 g/dL (32-36); Mean Corpuscular Hgb 30.2 pg (27.0-32.0); Mean Platelet Vol. 10.1 fl (6.2-12.0); Platelet Count 185 K/mm3 (150-450); RBC Distribution Width CV 13.1 % (11.6-14.6); RBC Distribution Width SD 44.1 fl (35.1-43.9); Red Blood Count 5.46 M/mm3 (4.6-6.2); White Blood Count 8.2 K/mm3 (4.4-11.0)
[2024-07-29 07:26] LABS: AST(SGOT) 14 U/L (15-37); Alanine Aminotransfer ALT/SGPT 21 U/L (16-61); Albumin, Serum 3.6 g/dL (3.2-5.0); Alkaline Phosphatase 85 U/L (45-117); Anion Gap 7 (5-15); BUN 21 mg/dL (7-18); Calcium,Total 9.2 mg/dL (8.5-10.1); Chloride 107 mmol/L (98-107); Creatinine, Serum 0.92 mg/dL (0.70-1.30); EST Glomerular Filtration Rate 85 mL/min (>60); Est Glom Filt Rate - Afr Amer 103 mL/min (>60); Estimated Creatinine Clearance 85.56 ml/min; Globulin 3.7 g/dL (2.2-4.2); Glucose 110 mg/dL (74-106); Protein, Total 7.3 g/dL (6.4-8.2); Sodium Level 141 mmol/L (136-145)
--- NOTE | 2024-07-29 07:51 | PCM.PN.CARD ---
Subjective Subjective Patient seen and evaluated. Did well overnight and no complaints Objective Data Vital Signs: Vital Signs Temp Pulse Resp BP Pulse Ox O2 Del Method 97.1 F L 69 18 128/64 H 98 Room Air 07/29/24 03:00 07/29/24 03:00 07/29/24 03:00 07/29/24 03:00 07/29/24 03:00 07/29/24 03:00 Oxygen Delivery Method Room Air Weight: 270 lb 0.002 oz Body Mass Index (BMI) 39.9 Intake & Output: Intake and Output for Last 24 Hours 07/27/24 07/28/24 07/29/24 23:59 23:59 23:59 Intake Total 500 / 500 Balance 500 / 500 Lab / Micro Data 07/29/24 06:15 07/29/24 06:15 Labs: Laboratory Results - last 24 hr 07/29/24 06:15: WBC 8.2, RBC 5.46, Hgb 16.5, Hct 49.7, MCV 91.0, MCH 30.2, MCHC 33.2, RDW Std Deviation 44.1 H, RDW Coeff of Andrei 13.1, Plt Count 185, MPV 10.1, Sodium 141, Potassium 4.0, Chloride 107, Carbon Dioxide 28.0, Anion Gap 7, BUN 21 H, Creatinine 0.92, Estim Creat Clear Calc 85.56, Est GFR (MDRD) Af Amer 103, Est GFR (MDRD) Non-Af 85, BUN/Creatinine Ratio 23.0 H, Glucose 110 H, Calcium 9.2, Total Bilirubin 0.70, AST 14 L, ALT 21, Alkaline Phosphatase 85, Total Protein 7.3, Albumin 3.6, Globulin 3.7, Albumin/Globulin Ratio 1.0 Cardiology Labs/Tests 07/29/24 06:15: WBC 8.2, RBC 5.46, Hgb 16.5, Hct 49.7, MCV 91.0, MCH 30.2, MCHC 33.2, Plt Count 185, MPV 10.1, Sodium 141, Potassium 4.0, Chloride 107, Carbon Dioxide 28.0, Anion Gap 7, BUN 21 H, Creatinine 0.92, Est GFR (MDRD) Af Amer 103, Est GFR (MDRD) Non-Af 85, BUN/Creatinine Ratio 23.0 H, Glucose 110 H, Calcium 9.2, Total Bilirubin 0.70 Rhythm: EKG: ECHO: Stress Test: Cardiac Cath: PCI: CT Surgery: Holter monitor: EPS: PPM: CXR: Chest CT Scan: Physical Exam Const alert, oriented x3 and no apparent distress General Appearance: cooperative HEENT hearing grossly normal bilaterally Head and Scalp: atraumatic Eyes EOMs intact bilaterally Neck General: normal visual inspection Chest inspection of chest normal and palpation of chest normal Resp normal respiratory effort Auscultation: clear to auscultation bilaterally Cardio regular rate, regular rhythm, S1 normal heart sound and S2 normal heart sound Jugular Venous Distention: JVD GI normal to inspection, nondistended, normoactive bowel sounds Extremity normal capillary refill and no pedal edema Peripheral Pulses: Yes pulses 2+ throughout and femoral pulses present Skin no rashes or lesions noted Neuro oriented x3 and CN's II-XII intact bilaterally Psych Appearance: grossly normal and appropriate Assessment & Plan Assessment/Plan (1) History of coronary artery stent placement: PLAN: Patient with coronary artery disease status post angioplasty and stenting of the left circumflex artery. Patient tolerated it well overnight no issues noted. Will be discharged for outpatient follow-up. Thank you for allowing me to participate in the care of your patient. Please don't hesitate to call if any issues arise.
--- NOTE | 2024-07-29 07:56 | DCINST_ITS ---
Discharge Instructions Diet Discharge Diet: No restrictions Activity Discharge Activity: Return to Normal Activity Additional Activity Instructions:: You must have someone drive you home. Do not drive until instructed by your doctor. You must have someone stay with you all night after your test. Rest in bed or on the couch until the next morning. Limit the number of times you go up and down stairs the day of your test. Apply pressure to the puncture site if you sneeze or cough. Dressing / Incision Call your doctor if your incision/area has: Increased Pain/ Swelling, Increased Redness, Foul Smelling Discharge and Swelling at the incision site Call your doctor if you observe: Fever of 101 or Higher Additional Dressing/Incision Instructions:: Keep the dressing (bandage) on until the next morning. You may then shower, but do not take a tub bath for 5 days after your test. It is normal to have some tenderness and discomfort at the puncture site. Sometimes bruising also occurs. However, if pain, numbness, or coldness occurs below the puncture site (in your leg, toes, arms or fingers) call your doctor at once. You may have a small, marble sized knot at the puncture site. This is normal. Do not rub it. It will go away in 4-6 weeks. Bleeding can occur from the area where the puncture was done. Blood may spurt or drip from the site. If blood spurts, apply pressure right away to stop bleeding and call 911. Although rare, bleeding into the tissue (hematoma) can also occur. If this happens, a large, firm area goose egg under the skin will appear. If any of these occur, lie down as flat as you can and have someone apply firm pressure to the cath site with a gauze pad or a clean washcloth for 10-15 minutes. Call 911 or go to the Emergency Department. Follow Up Care When: The office will call you for follow-up Test Results: Test results from this visit will be discussed in further detail at your follow- up appointment, if applicable. Discharge Plan Admission Admit Date/Time: 07/28/24 10:58 Attending Provider: Carlos Raza Primary Care Provider: Melina Agosto Consulting Providers: Aviva Mayo Discharge Orders/Prescriptions Prescriptions: New Brilinta 90 mg Tablet 90 mg PO BID Qty: 180 2RF Continued calcium carbonate [Tums] 200 mg calcium (500 mg) tablet,chewable 200 mg PO BID PRN (Reason: per pt) albuterol sulfate [ProAir HFA] 90 mcg/actuation HFA aerosol inhaler 2 puff INHALATION Q4H PRN (Reason: shortness of breath or wheezing) Qty: 18 6RF butter balm 1 applic topical DAILY PRN (Reason: rough spots) dutasteride-tamsulosin 0.5-0.4 mg capsule, ER multiphase 24 hr 1 cap PO QDAY cyanocobalamin (vitamin B-12) 1,000 mcg capsule 1,000 mcg PO DAILY Qty: 90 1RF furosemide 40 mg tablet 40 mg PO BID polyethylene glycol 3350 [Miralax] 17 gram Powder In Packet 17 g PO DAILY ibuprofen 600 mg tablet 600 mg PO Q6H PRN (Reason: fever or pain) Qty: 20 0RF cyanocobalamin (vitamin B-12) 1,000 mcg tablet 1,000 mcg PO DAILY cholecalciferol (vitamin D3) [Vitamin D3] 25 mcg (1,000 unit) capsule 2,000 unit PO DAILY levothyroxine 137 mcg tablet 137 mcg PO DAILY Qty: 90 3RF losartan 50 mg tablet 50 mg PO DAILY Qty: 90 3RF oxybutynin chloride 10 mg tablet extended release 24hr 10 mg PO DAILY Qty: 90 3RF Referrals / Follow Up: Melina Agosto MD [Primary Care Provider] - Disposition Disposition (needs filled in before D/C Order can be placed): Home, Self Care
[2024-07-29 08:30] VITALS: O2SAT 95
--- NOTE | 2024-07-29 10:00 | EKG12_ITS ---
Test Reason : POST PCI Blood Pressure : */* mmHG Vent. Rate : 68 BPM Atrial Rate : 68 BPM P-R Int : 168 ms QRS Dur : 100 ms QT Int : 424 ms P-R-T Axes : 37 -61 27 degrees QTcB Int : 450 ms Normal sinus rhythm Left axis deviation Abnormal ECG When compared with ECG of 05-Jun-2021 12:08, No significant change was found Confirmed by JENNY SHAIKH, CARLOS ([id number]), makeup editor EDENILSON MOBLEY ([id number]) on 07/29/2024 2:13:25 PM Referred By: Carlos Raza Confirmed By: CARLOS RAZA MD
[2024-07-29 10:01] VITALS: BP 147/64; PULSE 77; RESP 16; TEMP 36.5; O2SAT 97
--- NOTE | 2024-07-29 10:03 | CASEMGMT ---
Patient has order for discharge. Patient is discharging on Eliquis, copay for 30 days is $39. BOOM SON in to discuss needs at discharge. RN ADELAIDA updated patient regarding Brilinta copay and states he is able to afford copay. Patient denies needs or help at discharge. Patient had no further questions or concerns.
[2024-07-29] MEDS: Aspirin E.C. 81 MG Tablet PO (10:04)
[2024-07-29] MEDS: Losartan Potassium 50 MG Tablet PO (10:04)
[2024-07-29] MEDS: TICAGRELOR 90 MG TABLET PO (10:04)
[2024-07-29] MEDS: Tolterodine Tartrate 2 MG CAP.SA PO (10:05)
--- NOTE | 2024-07-29 11:35 | PHA.DC_ITS ---
Pharmacy [facility] has performed discharge medication reconciliation and counseling for this patient. New RX for ticagrelor, no aspirin on home med list. Spoke to Dr. Raza, he does want patient started on aspirin, he was going to call PCU since he already completed discharge. We did children's counselor him to start aspirin. I also told both patient's nurse and the charge nurse that pt should also be starting aspirin as well. 1. ASPIRIN 81MG PO DAILY 2. TICAGRELOR 90MG PO BID The patient's discharge medication list was reviewed for discrepancies and discrepancies were resolved. The patient was counseled on the following discharge medications and changes in medications for homegoing were reviewed. The Reason for Use, instructions for use, and potential side effects were reviewed for all new medications. The patient's questions regarding all of their medications were answered. The patient was able to verbally demonstrate an understanding of their discharge medications. Patient counseled by pharmacy data analystSergio. Medications at Discharge Home Medications polyethylene glycol 3350 17 gram oral powder packet (Miralax) 17 g PO DAILY constipation 06/02/21 calcium carbonate (Tums) 200 mg PO BID PRN supplement 06/05/21 butter balm 1 applic topical DAILY PRN rough spots 08/03/21 ibuprofen 600 mg tablet 600 mg PO Q6H PRN fever or pain #20 tabs 04/27/22 albuterol sulfate 90 mcg/actuation aerosol inhaler (ProAir HFA) 2 puff inhalation Q4H PRN shortness of breath or wheezing #18 grams 06/05/22 levothyroxine 137 mcg tablet 137 mcg PO DAILY thyroid #90 tabs 11/12/23 losartan 50 mg tablet 50 mg PO DAILY blood pressure #90 tabs 11/12/23 oxybutynin chloride 10 mg tablet,extended release 24 hr 10 mg PO DAILY bladder #90 tabs 11/12/23 cyanocobalamin (vitamin B-12) 1,000 mcg capsule 1,000 mcg PO DAILY vitamin #90 caps 03/09/24 dutasteride 0.5 mg-tamsulosin ER 0.4 mg capsule ext.release 24hr mphas 1 cap PO QDAY prostate 06/02/24 furosemide 40 mg tablet 40 mg PO BID diuretic 06/02/24 cholecalciferol (vitamin D3) 25 mcg (1,000 unit) capsule (Vitamin D3) 2,000 unit PO DAILY vitamin 07/28/24 cyanocobalamin (vitamin B-12) 1,000 mcg tablet 1,000 mcg PO DAILY vitamin 07/28/24 ticagrelor 90 mg tablet (Brilinta) 90 mg PO BID #180 tabs 07/29/24
--- NOTE | 2024-07-29 12:11 | CL.I_ITS ---
Patient Name: APARNA CARRERA Study Date: 07/28/2024 Performing: Misha Mann MD Ht: 70 inches 177.8 cm : 1945 Wt: 270.4 lbs 122.47 kg Age: 78 Gender: male BSA: 2.37 PROCEDURE(S) PERFORMED IC12-(75314/C9600)IRISH W/WO PTCA, SINGLE CORONARY ARTERY CLINICAL PROFILE AND CO-MORBIDITIES Indications: Suspected CAD Heart Failure: None Stress/Imaging Date: 07/22/24 Stress Test with SPECT MPI: Positive Intermediate Risk CAD Presentations: Unstable angina. CONCLUSIONS Successful IRISH to mLCx RECOMMENDATIONS DESCRIPTION OF PROCEDURE The patient arrived to the procedure lab. The risks and benefits of the procedure as well as a full description of our services here and current unavailability of surgical backup were fully explained to the patient and/or their significant other prior to the catheterization. The Timeout was completed, verifying the correct patient and procedure. The patient's procedural site was prepped and draped in the usual fashion. Local anesthetic was given subcutaneously to right radial region with Lidocaine 2% Using a modified Seldinger technique,arterial access was obtained via the right radial artery, a 6Fr sheath was inserted. Left Coronary Artery selective angiography was performed in multiple views using a 5 Fr. 4.0 Lopez catheter. Right Coronary Artery selective angiography was then performed in multiple views using a 5 Fr. 4.0 Lopez catheter. Left Ventriculography was performed in SIN projection using a 5 Fr. Pigtail catheter. LV to AO pullback pressures were then recorded.The images were reviewed and options discussed. A decision was then made to proceed with an Intervention, IVUS or other adjunct procedure. XB 3 Guide catheter was inserted and engaged into the LCA. {L1} Angiogram performed pre balloon dilatation. BMW 0.014 Guide wire was advanced to the Circumflex. EMERGE 2.5 X 12 Balloon catheter was inserted. WHISPER MS 0.014 Guide wire was advanced to the Circumflex. Balloon catheter was reinserted Balloon catheter was advanced across lesion in the circumflex, mid. Angiogram performed pre balloon dilatation. PTCA balloon inflated at 6 atms for 11 secs. PTCA balloon inflated at 6 atms for 10 secs. Angiogram performed post balloon dilatation. MACY FRONTIER 2.5 X 18 Drug Eluting stent was inserted. Drug Eluting stent was advanced across the lesion in the circumflex, mid. Angiogram performed post stent deployment. The arterial sheath was pulled and a TR Band was applied for hemostasis 10 ml of air INTERVENTION INFORMATION LESION SITE: Circumflex (Mid) Lesion Complexity: High/C, chronic total occlusion: No, lesion at bifurcation: Yes, thrombus present: No, lesion length: 15 mm, culprit lesion: Yes, Previously treated lesion: No, In-stent restenosis: No Pre Stenosis: 80 % Pre intervention JUAN JOSE flow: 3 PROCEDURE: Drug Eluting Stent with pre dilatation. Post Stenosis: 0 % Post intervention JUAN JOSE flow: 3 Lesion Devices: Cordis 6 Fr XB3.0 100cm Guide Catheter Richards .014 190cm BMW Panther Burn Straight Fabricio Sci EMERGE MR 2.50x12 BALLOON Richards .014 190cm HT Whisper MS Straight Medtronic 2.50 x 18 MACY FRONTIER IRISH [employer] 6 Ghanaian GuideLiner COMPLICATIONS No Complications PROCEDURE MEDICATIONS Versed 1 mg IV Fentanyl 50 mcg IV Versed 1 mg IV Oxygen: 2 L/min via nasal cannula Aspirin (325mg) 1 Tabs PO 07/28/2024 07:20:16 Brilinta 180 mg PO @ 07/28/2024 09:51:44 Heparin given IA 07/28/2024 08:27:54 Heparin 8000 unit(s) IV 07/28/2024 09:56:39 Verapamil 2.5mg, Ntg 100mcgs, 3000 units of Heparin given IA 07/28/2024 08:27:54 SUMMARY OF HEMODYNAMIC DATA Time AIR REST ECG 07:20:38 AO 111/56 (76) SA 08:43:44 LV 104/1, 7 08:53:16 LV 106/1, 6 08:53:22 LV 110/0, 11 08:53:58 LV 107/1, 6 08:54:05 LVp 121/0, 12 08:54:11 AOp 119/52 (78) 08:54:16 Art 115/47 (70) 09:02:38 AO 125/54 (81) 09:58:14 AO 115/61 (86) 10:22:02 Signed By Misha Mann MD On 07/29/2024 12:10:51 Misha Mann MD
== END 2024-07-29 07:55 | disposition home or self-care (01) ==
LOC: CLSP 11:02 → PCU 11:02
PROVIDERS: Physician Assistant Medical; Admitting Provider Specialist; PCP Internal Medicine; Referring Provider Internal Medicine Cardiovascular Disease; Visit Provider Internal Medicine Cardiovascular Disease
DX: I25.110 Atherosclerotic heart disease of native coronary artery with unstable angina pectoris (principal); J43.9 Emphysema, unspecified; I10 Essential (primary) hypertension; E78.00 Pure hypercholesterolemia, unspecified; G47.33 Obstructive sleep apnea (adult) (pediatric); Z91.199 Patient's noncompliance with other medical treatment and regimen due to unspecified reason; R60.0 Localized edema; Z79.899 Other long term (current) drug therapy; Z99.81 Dependence on supplemental oxygen; K21.9 Gastro-esophageal reflux disease without esophagitis; Z87.891 Personal history of nicotine dependence
CPT/HCPCS: 36415; 71046; 80053; 85027; 85730; 92928; 93005; 93458; 99152; 99153; 99221; J7040; Q9967; C1725; C1769; C1874; C1887; C1894; C9600; G0378

== ENCOUNTER → 2024-08-12 | Outpatient (CLI) | payer MEDICARE, SELFPAY ==
--- NOTE | 2024-08-12 13:48 | PCM.CR.HP2 ---
CR - History & Physical General Arrival date:: 08/12/24 Arrival time:: 13:48 Date of Referral:: 07/28/24 Date of CR Evaluation:: 08/12/24 Referring Physician: Dr. Raza Primary Diagnosis: PCI with stent History of Present Cardiac Event Onset Date PTCA or coronary stenting:: Yes Vessel: Left circumflex artery onset 07/28/24 Medications Ambulatory Orders ?Medication ?Instructions ?Recorded polyethylene glycol 3350 17 gram 17 g PO DAILY constipation 06/02/21 oral powder packet (Miralax) calcium carbonate (Tums) 200 mg PO BID PRN supplement 06/05/21 butter balm 1 applic topical DAILY PRN rough 08/03/21 spots ibuprofen 600 mg tablet 600 mg PO Q6H PRN fever or pain 04/27/22 #20 tabs albuterol sulfate 90 mcg/actuation 2 puff inhalation Q4H PRN 06/05/22 aerosol inhaler (ProAir HFA) shortness of breath or wheezing #18 grams levothyroxine 137 mcg tablet 137 mcg PO DAILY thyroid #90 tabs 11/12/23 losartan 50 mg tablet 50 mg PO DAILY blood pressure #90 11/12/23 tabs oxybutynin chloride 10 mg 10 mg PO DAILY bladder #90 tabs 11/12/23 tablet,extended release 24 hr dutasteride 0.5 mg-tamsulosin ER 1 cap PO QDAY prostate 06/02/24 0.4 mg capsule ext.release 24hr mphas furosemide 40 mg tablet 40 mg PO BID diuretic 06/02/24 cholecalciferol (vitamin D3) 25 2,000 unit PO DAILY vitamin 07/28/24 mcg (1,000 unit) capsule (Vitamin D3) cyanocobalamin (vitamin B-12) 1,000 mcg PO DAILY vitamin 07/28/24 1,000 mcg tablet ticagrelor 90 mg tablet (Brilinta) 90 mg PO BID #180 tabs 07/29/24 aspirin 81 mg tablet,delayed 81 mg PO QDAY 08/05/24 release (Adult Low Dose Aspirin) losartan 50 mg-hydrochlorothiazide 1 tab PO Q OTHER DAY 08/05/24 12.5 mg tablet Allergies Allergies Penicillins Allergy (Severe, Verified 08/05/24 09:41) Anaphylaxis perfume Allergy (Intermediate, Verified 08/05/24 09:41) Other-triggers asthma attack perflutren (From Definity) Allergy (Verified 08/05/24 09:41) Unknown vancomycin Adverse Reaction (Intermediate, Verified 08/05/24 09:41) Other-htn atorvastatin (From Lipitor) Adverse Reaction (Mild, Verified 08/05/24 09:41) Other-myalgias dobutamine Adverse Reaction (Mild, Verified 08/05/24 09:41) Other-muscle spasm egg Adverse Reaction (Mild, Verified 08/05/24 09:41) WATER BLISTERS fluticasone (From Flonase) Adverse Reaction (Mild, Verified 08/05/24 09:41) Other-nosebleed rosuvastatin (From Crestor) Adverse Reaction (Mild, Verified 08/05/24 09:41) Other-myalgias simvastatin (From Zocor) Adverse Reaction (Mild, Verified 08/05/24 09:41) Other-myalgias Sleep Disorder Evaluation Hx of Sleep Apnea: Yes Do you snore loudly (louder than talking or can be heard through closed doors)?: No Do you often feel tired/ fatigued/ sleepy during daytime?: No Has anyone observed you stop breathing during sleep?: No History of Hypertension (for STOP score): Yes STOP Results: Negative Advanced Directives Advanced Directives Power of Statement Clerks Supervisor: No Living Will: No Advance Directives Information Provided: No Advance Directives on File: No DNR Order?:: No Past Medical History Covid-19 Screening Physicial Symptoms Other Clinical Concerns Exposure Risk Pertinent Comorbidities 65 years or older:: Yes Has a chronic lung disease or moderate to severe asthma:: Yes Past Medical Illness Medical History Atherosclerosis of coronary artery of table mountain heart without angina pectoris Protuberant abdomen Abdominal obesity Elective procedure for unacceptable cosmetic appearance Heart disease History of UTI Allergies Uses wheelchair Ambulates with cane Dietary restriction History of diverticulitis On home oxygen therapy History of CHF (congestive heart failure) Loss of hearing Wears glasses Wears partial dentures Wears dentures Alcohol use Thyroid disease Walker as ambulation aid Arthritis Bladder disease Prostate disease High cholesterol Restless legs Back pain Migraine headache History of hiatal hernia Gastric reflux Former smoker COPD (chronic obstructive pulmonary disease) Emphysema, unspecified Chronic cough Shortness of breath on exertion History of edema History of echocardiogram History of stress test Cardiology follow-up encounter Hypertension Essential hypertension Groin mass chipped bones Torn cartilage Lung nodule Dyspnea Cyst of right kidney Asbestos exposure Emphysema lung Bronchitis Bronchiectasis Asthma Obesity (BMI 30-39.9) Nicotine dependence in remission Neuropathy GERD (gastroesophageal reflux disease) Hypothyroidism Obstructive sleep apnea Hyperlipidemia Past Surgical History Surgical History History of coronary artery stent placement (07/28/24) History of transurethral resection of bladder tumor (TURBT) (~04/2022) History of colonoscopy History of herniorrhaphy S/P trigger finger release pin placement finger surgery History of repair of rotator cuff History of right and left heart catheterization (09/28/16) Family History Summary Family History Father CAD (coronary artery disease) Other Asthma Social History Smoking History Smoking Status: Former smoker Years Smokin Packs Smoked per Day: 4 (stopped in 1980) Alcohol Use Alcohol Usage: Yes (occas) Substance Abuse Hx Substance Use: No Occupation Occupation (List type of work in comments):: Retired Social Environment Status Marital Status: Single Current Living Arrangements Living Environment:: Alone Children How many children do you have?: 2 Do any of your children live nearby?: Yes Safety Do you feel safe in your surroundings?: Yes Assistance Do you need any assistance at home?: no Review of Systems Review of Systems Hints Review of Present Symptoms: Reports Dizziness/Lightheadedness and Fatigue; Denies Shortness of Breath at Rest, Shortness of Breath with Exertion, PVD, Operative Discomfort, Angina, Wound Healing, Heart Arrhythmia/Irregularities, Appetite - Normal, Appetite - Special Diet, Sleep - Normal or Sexual Changes Pain Is Patient Pain Free?: Yes Pain Location: back Pain Level: 5/10 Risk Factor Assessment Chief Complaint Chief Complaint: PCI with stent Vital Signs Pulse Ox: 96 Blood Pressure: 127/84 Pulse Pulse Rate: 87 Hypertension Blood Pressure Sitting - Right Arm: 127/84 Obesity Height: 5 ft 9 in Weight:: 270 lb Weight in Pounds: 270.0 lbs Body Mass Index (BMI): 39.9 Nutritional Referral for Obesity: No Physical Inactivity Physical Inactivity: None Risk Stratification Risk Guidelines: Moderate Risk: Risk Factor for Smoking and Risk Factor for Depression and Highest Risk: Risk Factor for Dyslipidemia, Risk Factor for Diabetes, Risk Factor for Obesity, Risk Factor for Hypertension and Risk Factor for Sedentary Lifestyle For Smoking Smoking Risk Guidelines For Dyslipidemia Dyslipidemia Risk Guidelines For Diabetes Mellitus Diabetes Risk Guidelines For Obesity/Overweight Obesity/Overweight Risk Guidelines For Hypertension Hypertension Risk Guidelines For Sedentary Lifestyle Sedentary Lifestyle Risk Guidelines For Depression Depression Risk Guidelines Family History Family History Father CAD (coronary artery disease) Other Asthma Motivation Motivation to Participate On a scale of 1 to 10, how prepared are you to commit to attending program?: 10 What do you see as barriers to successfully being able to complete the program?: no What do you see as the benefits of succesfully completing the program? In other words, what do you hope to get out of participating in the program?: leg strength, energy Are there issues you are dealing with that will interfere with completing the program?: no Do you have a spouse or signficant other, family or friends who will help support you to complete the program?: yes
[2024-08-12 13:55] VITALS: BP 127/84; PULSE 87; O2SAT 96
--- NOTE | 2024-08-12 13:55 | CR.ITP_ITS ---
Diagnosis General Information Admitting Diagnosis: PCI with stent Personal Learning Style:: Audio/Visual Barriers to Learning: No Barriers Stage of change r/t lifestyle modifications:: Contemplation Gave educational material for:: Treating Heart Disease, How The Heart Works, What it means to have Heart Disease, How Coronary Artery Disease is Diagnosed, Heart Procedures, What Heart Medications Do, Risk Factors & Modifications, Living an Active Life, Nutrition, Emotions & Heart Disease, Stress Management & Relaxation and Sleep Disorders & Heart Disease Education/Goals Cardiac Rehabilitation Goals Personal Goals: Initial Assessment: Improve energy level, Participate in home exercise program, Improve knowledge of cardiac disease, Improve muscle strength and endurance, Improve diet and eating habits (eat healthier), Control risk factors (learn risk factor modification) and Other goal: Scale for measuring improvement of personal goals Diagnosis & Disease Process Outcomes/Goals: Pt IDs own risk factors & lifestyle modifications by Session 10, Verbalizes symptoms of angina & response by session 3., Pt independently manages and Other Additional Outcomes/Goals: Plan/Interventions: Assist Pt to ID & engage in lifestyle modification to reduce CVD risk, Instruct on individual risk factors, Review symptoms of angina & emergency actions, Review secondary diagnosis & identify educational needs. and Other see comment 30 day Reassessments:: Not Met 30 day Reassessments:: Not Met 30 day Reassessments:: Not Met 30 day Reassessments:: Not Met Final Reassessments:: Not Met Safety Referral to Physical Therapy: No Referral to [facility] Case Management: No Fall Risk Assessed:: Yes Assistive Devices:: Wheelchair Exercise - Initial Assessment Visit Date of Eval: 08/12/24 (initial eval ) Mets: Pre-: >3 METS for 30 minutes by discharge, >5 METS for 30 minutes by discharge, >7 METS for 30 minutes by discharge and Unable to meet goal due to: (see comment below) Physician Prescribed Exercise Modalities: Treadmill, Rower, Schwinn Airdyne AD-7, SciFit Stepper, SciFit Pro-I I Ergometer and SciFit Lateral [place] Frequency: 2x/week for 18 weeks [36 sessions] and 3x/week for 12 weeks [36 sessions] Intensity: 60-80% of age predicted maximum heart rate reserve Duration: 30 - 45 minutes Current METSs:: 3 Target Heart Rate:: 85-107 Resting Blood Pressure: 127/84 EKG Type: NSR Outcomes & Goals Goals:: Verbalizes understanding of THR, RPE & goal METS by session 6, Documents in home exercise log/reports 30 min aerobic 5 day/wk by DC, Demonstrates accurate pulse taking by DC and Other additional outcome/goals: see below Intervention & Plan Exercise Program Goals: Instruct on personal THR & RPE, Instruct on MET level & personal MET goal, Show patient to take own pulse /validate performance until accurate, Instruct on home exercise and Other additional plan/int Physical Activity Home Exercise Physical Activity - Home Exercise: Safe Exercise, Warm-up, Self-monitoring, Cool-Down, Home Exercise > 30 min Daily and Sitting Time <3 hours/daily Outcomes & Goals Outcomes/Goals: Demonstrates correct Warm-up/exercise Cool-Down (S3) if = 2.5 METs, Verbalizes symptoms of exercise intolerance by Session 3 (S3), Demonstrate safe equipment use (S3) & follows exercise prescrition (6) and Other: See below Intervention & Plan Plan/Intervention: Instruct warm-up & cool-down if exercising at > 2 METs, Instruct on symptoms of exercise intolerance & actions to take, Instruct & monitor on saf, Assess intial functional capacity & safety risk and Other See below Nutrition - Initial Assessment Program Goals Nutrition Program Goals Patient has diagnosis of Hyperlipidemia (ICD E78)?: Yes Visit Date of Eval: 08/12/24 (initial eval ) Cholesterol/Lipids (Other Core Measures) Determine presence & major risk factors that modify LDL goal: Cigarette smoking, Hypertension or hypertensive medication, Low HDL cholesterol <40 mg/dL*, Family history of premature CHD in Male < 55 years: female <65 yearsFa and Age men > 45 years; women >/= 55 years Outcomes/Goals: Pt IDs own risk factors & lifestyle modifications by Session 10, Verbalizes symptoms of angina & response by session 3., Pt independently manages and Other Additional Outcomes/Goals: Intervention/Plan: Advocate for lipid panel cholesterol medication if applicable, Instruct on personal lipid levels & lipid goals/NCEP guidelines, Instruct on cholesterol and Other additional plan/int Referral to dietitian:: No Diabetes (Other Core Measures) Diabetes Type: Not Applicable Weight Mgt (Other Care) Height: 5 ft 9 in Weight:: 270 lb BMI: 39.9 Diagnosis Overweight/Obesity BMI> 30% ICD-10 E66: Yes Diagnosis High BMI/Morbid Obesity BMI> 35% ICD-10 Z68: Yes Outcomes/Goals: Pt sets, maintains & shows weight loss goal & trend during rehab and Other additional outcomes/goals Intervention/Plan: Instruct on ideal BMI & set weight loss goal w/patient, Assist pt to ID & incorporate diet changes for weight loss by S9, Refer to Structured Weight Loss program as appropriate, Encourage goal of using 250- 300dcal per session for weight loss and Other additional plan/interventions Healthy Eating Habits Will attend diet classes:: Yes Outcomes/Goals:: Consume diet rich in vegs,fruits,whole grain/high fiber,fish,lean meat, Limit sat/trans fats,cholesterol & added salts & sugars and Other additional outcome/goals: Intervention/Plan:: Assess current eating habits and Other Additional plan/interventions Education Gave educational materials for:: Signs & symptoms of hypoglycemia, Signs & symptoms of hyperglycemia, Relate diabetes to coronary artery disease and Healthy eating Core - Initial Assessment Visit Date of Eval: 08/12/24 (initial eval ) Medication Compliance Preventative Medication(s):: Aspirin, Ticagrelor/P2Y12 inhibitor and ARB (Angiotensi Rcap) H/O mental health issues: depression, anxiety, or addiction?: No Doesn?t believe in the benefits of treatment?: No Believes medications are unnecessary or harmful?: No Has a concern about medication side effects?: No Expresses concern over the cost of medications?: No Outcomes/Goals: Verbalizes medications,desired effect & common side effects @ DC, Pt self-reports following medication regimen, Keeps card in wallet w/medications listed by DC and Other additional outcome/goals: Interventions/plans: Instruct on medication effects & side effects, Review medication list w/patient every two weeks, Instruct importance of taking meds as ordered & assist problem solving and Other additional Tobacco Use Tobacco Use: Non-smoker How long ago did you quit using tobacco products?: Greater than or equal to 6 months ago Outcomes/Goals: Smoking cessation achieved or maintained by discharge, Identify aids/strategies for achieving smoking cessation by session 6 and Other additional outcome/goals Interventions/plan: Instruct on effects of smoking & provide smoking cessation resource, Assist pt to set quit date & provide encouragement, Assist pt to develop strategies to achieve/maintain quit date, Assist pt w/nicotine replacement & medication for cessation success and Other additional plan/interventions Hypertension Hypertension Diagnosis:: Hypertension ICD-10 I10 Resting Blood Pressure:: 127/84 [place] [employer] Hypertension Guidelines Outcomes/Goals: Able to verbalize/achieve optimal blood pressure <130/80, Incorporates diet changes & exercise for blood pressure control by DC and Other additional outcomes/goals Interventions/plan: Instruct on optimal blood pressure, hypertension & medications, Instruct on effects of sodium, alcohol, stress, exercise &hypertension and Other additional plan/interventions Tobacco Cessation Referral Smoking Cessation Referral:: No Individual Education/Counseling:: No Education Schedule Given:: Yes Psychosocial - Initial Assess VIsit Date of Eval: 08/12/24 (initial eval ) History of previous Mental disease:: No Target Goals Target Goals Psychosocial Test Tool Used:: Spinlister QOL Cardiac and PHQ-9 Questionnaire phq-9 Severity Referral to Behavioral Health PS - Interventions: Yes: Attend Stress Management Classes Outcomes/Goals: See list Psychosocial Outcomes/Goals:: ID's personal stressors & 2 strategies to manage stress by discharge and Other Additional outcome/goals: Intervention/Plan: See List Interventions/Plan:: Assess stressors,coping strategies & signs of derpression on admission, Instruct/assist pt to develop coping & personal stress Mgt strategies, Refer to Behavioral Health if appropriate, Refer to Physician if appropriate, Instruct patient to recognize signs & symptoms of depression, Instruct patient to recog and Other additional plan/intervention Patient Health Questionnaire PHQ-9 Screening Initial Assessment: 1. Little interest or pleasure in doing things: Not at all 2. Feeling down, depressed, or hopeless: Not at all 3. Trouble falling or staying asleep, or sleeping too much: More than half the days 4. Feeling tired or having little energy: More than half the days 5. Poor appetite or overeating: More than half the days 6. Feeling bad about yourself -- or that you are a failure or have let yourself or your family down: Not at all 7. Trouble concentrating on things, such as reading the newspaper or watching television: Not at all 8. Moving or speaking so slowly that other people could have noticed. Or the opposite - being so fidgety or restless that you have been moving around a lot more than usual: Not at all 9. Thoughts that you would be better off , or of hurting yourself in some way: Not at all How difficult have these problems made it for you to do your work, take care of things at home, or get along with other people?: Somewhat difficult Total Score: 6 EDGAR-Q SV Test Statements CAD is a disease of the arteries in the heart: True Examples of risk factors for heart disease: True Angina is chest pain or discomfort: False The benefits of resistance training include: True Eating more meat and dairy products: False Anti-platelet medications such as aspirin are important: True The only effective way to manage stress: False An exercise warm-up slowly increases heart rate: True Prepared, processed foods usually have high sodium: True Depression is common after a heart attack: I Don't Know The statin medications lower cholesterol: True To control blood pressure, lower the amount of sodium: True If someone gets chest discomfort during walking: I Don't Know Transfats are partially hydrogenated vegetable oils: I Don't Know Sleep apnea that is not treated increases the risk: I Don't Know To control cholesterol, one should become a vegetarian: I Don't Know Someone knows if he/she is exercising at the right level: I Don't Know Diabetes cannot be prevented with exercise & health eating: I Don't Know Stress is a large risk for heart attack: I Don't Know A diet that can help lower blood pressure is rich in: I Don't Know Total Score Total Correct Responses: 9 Self-Efficacy 6-Item Scale Initial Assessment: We would like to know how confident you are in doing certain activities. Please select your confidence level for: Fatigue Select Number: 5 Physical Discomfort or Pain Select Number: 10 Emotional Distress Select Number: 10 Other Symptoms or Health Problems Select Number: 5 Different Tasks and Activities Select Number: 1 Medication Select Number: 5 Total Score:: 6 Nutrition Survey Nutrition Survey Instructions Scoring Instructions Nutrition Survey Initial: Have you lost >10 lbs over the past 2 months without trying?: No Are you following a special diet at home for diabetes, low fat, or low salt?: No Are you interested in meeting with a dietitian for help understanding your diet?: No Do you eat less than 3 meals a day?: Yes Do you eat fatty meats (torres, sausage, ribs, etc), fried foods, desserts, large amounts of salad dressings, margarine, butter, or cheese most days?: Yes Do you have food allergies? 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 Exercise - 60-day Assessment Physician Prescribed Exercise Modalities: Treadmill, Rower, Schwinn Airdyne AD-7, SciFit Stepper, SciFit Pro- II Ergometer and SciFit Lateral Hydrometeorology Teacher Exercise - 90-day Assessment Physician Prescribed Exercise Modalities: Treadmill, Rower, Schwinn Airdyne AD-7, SciFit Stepper, SciFit Pro- II Ergometer and SciFit Lateral Hydrometeorology Teacher Exercise - Final/Discharge Physician Prescribed Exercise Modalities: Treadmill, Rower, Schwinn Airdyne AD-7, SciFit Stepper, SciFit Pro- II Ergometer and SciFit Lateral [place] Frequency: 2x/week for 18 weeks [36 sessions] and 3x/week for 12 weeks [36 sessions] Intensity: 60-80% of age predicted maximum heart rate reserve Current METSs:: 3 Target Heart Rate:: 85-107 Nutrition - 30-Day Assessment Weight Mgt (Other Care) Height: 5 ft 9 in Weight:: 270 lb BMI: 39.9 Nutrition - 60-Day Assessment Weight Mgt (Other Care) Height: 5 ft 9 in Weight:: 270 lb BMI: 39.9 Core - Final Assessment Hypertension Resting Blood Pressure:: 127/84 [place] [employer] Hypertension Guidelines Core - 60-Day Assessment Hypertension Resting Blood Pressure:: 127/84 [place] [employer] Hypertension Guidelines Psychosocial - 30-Day Assess Target Goals Target Goals Referral to Behavioral Health PS - Interventions: Yes: Attend Stress Management Classes Psychosocial - 60-Day Assess Target Goals Target Goals Referral to Behavioral Health PS - Interventions: Yes: Attend Stress Management Classes Psychosocial - 90-Day Assess Target Goals Target Goals Referral to Behavioral Health PS - Interventions: Yes: Attend Stress Management Classes Psychosocial - Final Assessmen Target Goals Target Goals Referral to Behavioral Health PS - Interventions: Yes: Attend Stress Management Classes Nutrition - 90-Day Assessment Weight Mgt (Other Care) Height: 5 ft 9 in Weight:: 270 lb BMI: 39.9 Nutrition - Final Assessment Program Goals Patient has diagnosis of Hyperlipidemia (ICD E78)?: Yes Weight Mgt (Other Care) Height: 5 ft 9 in Weight:: 270 lb BMI: 39.9
[2024-08-12 14:04] VITALS: BP 127/84
[2024-08-12 14:46] VITALS: BMI 39.9
[2024-08-12 14:47] VITALS: BMI 39.9
== END | disposition home or self-care (01) ==
PROVIDERS: PCP Internal Medicine; Referring Provider Internal Medicine Cardiovascular Disease; Visit Provider Internal Medicine Cardiovascular Disease
DX: I25.10 Atherosclerotic heart disease of native coronary artery without angina pectoris (principal); Z95.5 Presence of coronary angioplasty implant and graft

== ENCOUNTER → 2024-08-21 | Outpatient (CLI) | payer MEDICARE, SELFPAY ==
[2024-08-12 14:46] VITALS: BMI 39.9
[2024-08-21 14:07] LABS: Absolute Lymphocyte Count 2.34 X10^3/uL (0.83-4.51); Absolute Neutrophil Count 4.2 X10^3/uL (2.0-7.7); Basophil# 0.05 X10^3/uL; Basophil% 0.7 % (0-1); Eosinophil# 0.11 X10^3/uL; Eosinophils% 1.5 % (0-5); Lymphocyte # 2.34 X10^3/ul (0.83-4.51); Lymphocyte % 31.4 % (19-41); Mean Corp Hgb Conc 33.3 g/dL (32-36); Mean Corpuscular Hgb 30.1 pg (27.0-32.0); Mean Corpuscular Volume 90.2 fL (80-94); Mean Platelet Vol. 10.4 fl (6.2-12.0); Monocyte# 0.74 X10^3/uL; Monocyte% 9.9 % (0-10); NRBC Flagged by Analyzer 0 % (0-5); Neutrophil % 56.2 % (47-70); Platelet Count 170 K/mm3 (150-450); RBC Distribution Width SD 42.8 fl (35.1-43.9); Red Blood Count 5.32 M/mm3 (4.6-6.2); White Blood Count 7.5 K/mm3 (4.4-11.0)
[2024-08-21 14:33] LABS: Vitamin D,25 Hydroxy 27.2 ng/mL
[2024-08-21 14:40] LABS: AST(SGOT) 19 U/L (15-37); Alanine Aminotransfer ALT/SGPT 12 U/L (16-61); Albumin, Serum 3.8 g/dL (3.2-5.0); Alkaline Phosphatase 87 U/L (45-117); Anion Gap 8 (5-15); BUN 19 mg/dL (7-18); BUN/Creat Ratio 19.9 RATIO (10-20); Calcium,Total 9.4 mg/dL (8.5-10.1); Chloride 100 mmol/L (98-107); Cholesterol 208 mg/dL (200); Creatinine, Serum 0.96 mg/dL (0.70-1.30); EST Glomerular Filtration Rate 81 mL/min (>60); Est Glom Filt Rate - Afr Amer 98 mL/min (>60); Free T3 2.7 pg/mL (2.18-3.98); Globulin 3.8 g/dL (2.2-4.2); Glucose 119 mg/dL (74-106); High Density Lipoprotein 44 mg/dL; Potassium 3.4 mmol/L (3.5-5.1); Protein, Total 7.6 g/dL (6.4-8.2); Sodium Level 138 mmol/L (136-145); T4 Free Direct 1.22 ng/dL (0.76-1.46); Thyroid Stim Hormone (TSH) 0.389 uIU/mL (0.358-3.740); Triglycerides 192 mg/dL; Very Low Density Lipoprotein 38 mg/dL (5-40)
== END | disposition home or self-care (01) ==
LOC: LAB 13:09
PROVIDERS: PCP Internal Medicine; Referring Provider Internal Medicine; Visit Provider Internal Medicine
DX: E03.9 Hypothyroidism, unspecified (principal); E78.5 Hyperlipidemia, unspecified; I10 Essential (primary) hypertension; E55.9 Vitamin D deficiency, unspecified
CPT/HCPCS: 36415; 80053; 80061; 82306; 83735; 84439; 84443; 84481; 85025

== ENCOUNTER 2024-09-14 14:15 | Outpatient (RCR) | payer MEDICARE, SELFPAY ==
[2024-08-12 14:46] VITALS: BMI 39.9
--- NOTE | 2024-09-11 11:01 | CR.ITP_ITS ---
Exercise - Initial Assessment Visit Session #:: 8 Physician Prescribed Exercise Modalities: SciFit Stepper and SciFit Lateral Fence Manufacture Supervisor Nutrition - Initial Assessment Weight Mgt (Other Care) Height: 5 ft 9 in Weight:: 266 lb 8 oz BMI: 39.3 Psychosocial - Initial Assess Target Goals Target Goals Referral to Behavioral Health PS - Interventions: Yes: Attend Stress Management Classes Patient Health Questionnaire PHQ-9 Screening 30-Day Re-eval Assessment: 1. Little interest or pleasure in doing things: Not at all 2. Feeling down, depressed, or hopeless: Not at all 3. Trouble falling or staying asleep, or sleeping too much: More than half the days 4. Feeling tired or having little energy: More than half the days 5. Poor appetite or overeating: More than half the days 6. Feeling bad about yourself -- or that you are a failure or have let yourself or your family down: Not at all 7. Trouble concentrating on things, such as reading the newspaper or watching television: Not at all 8. Moving or speaking so slowly that other people could have noticed. Or the opposite - being so fidgety or restless that you have been moving around a lot more than usual: Not at all 9. Thoughts that you would be better off , or of hurting yourself in some way: Not at all How difficult have these problems made it for you to do your work, take care of things at home, or get along with other people?: Somewhat difficult Total Score: 6 Self-Efficacy 6-Item Scale 30-Day Re-eval Assessment: We would like to know how confident you are in doing certain activities. Please select your confidence level for: Fatigue Select Number: 5 Physical Discomfort or Pain Select Number: 10 Emotional Distress Select Number: 10 Other Symptoms or Health Problems Select Number: 5 Different Tasks and Activities Select Number: 1 Medication Select Number: 5 Total Score:: 6 Nutrition Survey Nutrition Survey Instructions Scoring Instructions Exercise - 30-day Assessment Visit Date of Eval: 09/11/24 Session #:: 8 Physician Prescribed Exercise Modalities: SciFit Stepper and SciFit Lateral [place] Frequency: 3x/week for 12 weeks [36 sessions] Intensity: 60-80% of age predicted maximum heart rate reserve Duration: 30 - 45 minutes Current METSs:: 2.4 Target Heart Rate:: 85-107 Current RPE:: 12 Maximum Excercise HR:: 111 Resting Blood Pressure: 130/72 Maximum Exercise Blood Pressure: 150/70 EKG Type: NSR to ST w/rare pac, pvc's. Rare vent bigeminy, trigeminy Outcomes & Goals Goals:: Verbalizes understanding of THR, RPE & goal METS by session 6, Documents in home exercise log/reports 30 min aerobic 5 day/wk by DC, Demonstrates accurate pulse taking by DC and Other additional outcome/goals: see below Intervention & Plan Exercise Program Goals: Instruct on personal THR & RPE, Instruct on MET level & personal MET goal, Show patient to take own pulse /validate performance until accurate, Instruct on home exercise and Other additional plan/int Physical Activity Home Exercise Physical Activity - Home Exercise: Safe Exercise, Warm-up, Self-monitoring, Cool-Down, Home Exercise > 30 min Daily and Sitting Time <3 hours/daily Outcomes & Goals Outcomes/Goals: Demonstrates correct Warm-up/exercise Cool-Down (S3) if = 2.5 METs, Verbalizes symptoms of exercise intolerance by Session 3 (S3), Demonstrate safe equipment use (S3) & follows exercise prescrition (6) and Other: See below Intervention & Plan Plan/Intervention: Instruct warm-up & cool-down if exercising at > 2 METs, Instruct on symptoms of exercise intolerance & actions to take, Instruct & monitor on saf, Assess intial functional capacity & safety risk and Other See below 30-day Reassessments 30 day Reassessments:: Progressing Reassessment Notes & Comments:: RPE explained to pt. Pt demonstrates understanding. Exercise - 60-day Assessment Physician Prescribed Exercise Modalities: SciFit Stepper and SciFit Lateral [place] Exercise - 90-day Assessment Physician Prescribed Exercise Modalities: SciFit Stepper and SciFit Lateral Fence Manufacture Supervisor Exercise - Final/Discharge Physician Prescribed Exercise Modalities: SciFit Stepper and SciFit Lateral Fence Manufacture Supervisor Nutrition - 30-Day Assessment Program Goals Nutrition Program Goals Patient has diagnosis of Hyperlipidemia (ICD E78)?: Yes Visit Date of Eval: 09/11/24 Session #:: 8 Cholesterol/Lipids (Other Core Measures) Determine presence & major risk factors that modify LDL goal: Cigarette smoking, Hypertension or hypertensive medication, Low HDL cholesterol <40 mg/dL*, Family history of premature CHD in Male < 55 years: female <65 yearsFa and Age men > 45 years; women >/= 55 years Outcomes/Goals: Pt IDs own risk factors & lifestyle modifications by Session 10, Verbalizes symptoms of angina & response by session 3., Pt independently manages and Other Additional Outcomes/Goals: Intervention/Plan: Advocate for lipid panel cholesterol medication if applicable, Instruct on personal lipid levels & lipid goals/NCEP guidelines, Instruct on cholesterol and Other additional plan/int Diabetes (Other Core Measures) Diabetes Type: Not Applicable Weight Mgt (Other Care) Height: 5 ft 9 in Weight:: 266 lb 8 oz BMI: 39.3 Diagnosis Overweight/Obesity BMI> 30% ICD-10 E66: Yes Diagnosis High BMI/Morbid Obesity BMI> 35% ICD-10 Z68: Yes Outcomes/Goals: Pt sets, maintains & shows weight loss goal & trend during rehab and Other additional outcomes/goals Intervention/Plan: Instruct on ideal BMI & set weight loss goal w/patient, Assist pt to ID & incorporate diet changes for weight loss by S9, Refer to Structured Weight Loss program as appropriate, Encourage goal of using 250- 300dcal per session for weight loss and Other additional plan/interventions Healthy Eating Habits Will attend diet classes:: Yes Outcomes/Goals:: Consume diet rich in vegs,fruits,whole grain/high fiber,fish,lean meat, Limit sat/trans fats,cholesterol & added salts & sugars and Other additional outcome/goals: Intervention/Plan:: Assess current eating habits and Other Additional plan/interventions 30-day Reassessments:: Progressing Reassessment Notes & Comments:: Pt is scheduled to attend nutrition class. Pt is encouraged to eat a low sodium heart healthy diet. Education Gave educational materials for:: Signs & symptoms of hypoglycemia, Signs & symptoms of hyperglycemia, Relate diabetes to coronary artery disease and Healthy eating Nutrition - 60-Day Assessment Weight Mgt (Other Care) Height: 5 ft 9 in Weight:: 266 lb 8 oz BMI: 39.3 Core - 30-Day Assessment Visit Date of Eval: 09/11/24 Session #:: 8 Medication Compliance Preventative Medication(s):: Aspirin, Ticagrelor/P2Y12 inhibitor and ARB (Angiotensi Rcap) H/O mental health issues: depression, anxiety, or addiction?: No Doesn?t believe in the benefits of treatment?: No Believes medications are unnecessary or harmful?: No Has a concern about medication side effects?: No Expresses concern over the cost of medications?: No Outcomes/Goals: Verbalizes medications,desired effect & common side effects @ DC, Pt self-reports following medication regimen, Keeps card in wallet w/medications listed by DC and Other additional outcome/goals: Interventions/plans: Instruct on medication effects & side effects, Review medication list w/patient every two weeks, Instruct importance of taking meds as ordered & assist problem solving and Other additional Tobacco Use Tobacco Use: Non-smoker Hypertension Resting Blood Pressure:: 130/72 [place] [employer] Hypertension Guidelines Peak Exercise Blood Pressure:: 150/70 Outcomes/Goals: Able to verbalize/achieve optimal blood pressure <130/80, Incorporates diet changes & exercise for blood pressure control by DC and Other additional outcomes/goals Interventions/plan: Instruct on optimal blood pressure, hypertension & medications, Instruct on effects of sodium, alcohol, stress, exercise &hypertension and Other additional plan/interventions 30 day Reassessments:: Progressing Reassessment Notes & Comments:: Pt encouraged to take meds as prescribed. Med effects and side effects discussed in education. Tobacco Cessation Referral Smoking Cessation Referral:: No Individual Education/Counseling:: No Education Schedule Given:: Yes Psychosocial - 30-Day Assess VIsit Date of Eval: 09/11/24 Session #:: 8 History of previous Mental disease:: No Target Goals Target Goals Psychosocial Test Tool Used:: [employer] QOL Cardiac and PHQ-9 Questionnaire phq-9 Severity Referral to Behavioral Health PS - Interventions: Yes: Attend Stress Management Classes Outcomes/Goals: See list Psychosocial Outcomes/Goals:: ID's personal stressors & 2 strategies to manage stress by discharge and Other Additional outcome/goals: Intervention/Plan: See List Interventions/Plan:: Assess stressors,coping strategies & signs of derpression on admission, Instruct/assist pt to develop coping & personal stress Mgt strategies, Refer to Behavioral Health if appropriate, Refer to Physician if appropriate, Instruct patient to recognize signs & symptoms of depression, Instruct patient to recog and Other additional plan/intervention 30-day Reassessments: 30 day Reassessments:: Progressing Reassessment Notes & Comments:: Pt denies any psychosocial issues at this time. Psychosocial - 60-Day Assess Target Goals Target Goals Referral to Behavioral Health PS - Interventions: Yes: Attend Stress Management Classes Outcomes/Goals: See list Psychosocial Outcomes/Goals:: ID's personal stressors & 2 strategies to manage stress by discharge and Other Additional outcome/goals: Psychosocial - 90-Day Assess Target Goals Target Goals Referral to Behavioral Health PS - Interventions: Yes: Attend Stress Management Classes Psychosocial - Final Assessmen Target Goals Target Goals Referral to Behavioral Health PS - Interventions: Yes: Attend Stress Management Classes Nutrition - 90-Day Assessment Weight Mgt (Other Care) Height: 5 ft 9 in Weight:: 266 lb 8 oz BMI: 39.3 Nutrition - Final Assessment Weight Mgt (Other Care) Height: 5 ft 9 in Weight:: 266 lb 8 oz BMI: 39.3
[2024-09-11 11:10] VITALS: BP 130/72; BMI 39.3
[2024-09-11 11:21] VITALS: BP 130/72
== END 2024-09-15 23:59 ==
LOC: CR 14:15
PROVIDERS: PCP Internal Medicine; Referring Provider Internal Medicine Cardiovascular Disease; Visit Provider Internal Medicine Cardiovascular Disease
DX: I25.10 Atherosclerotic heart disease of native coronary artery without angina pectoris (principal); Z95.5 Presence of coronary angioplasty implant and graft
CPT/HCPCS: 93798

== ENCOUNTER 2024-10-16 14:15 | Outpatient (RCR) | payer MEDICARE, SELFPAY ==
[2024-09-11 11:10] VITALS: BMI 39.3
[2024-09-16 00:08] VITALS: BP 130/72
--- NOTE | 2024-10-12 10:33 | PCM.CR.ITP ---
Exercise - Initial Assessment Physician Prescribed Exercise Modalities: SciFit Stepper and SciFit Lateral Automotive Glass Mechanic Nutrition - Initial Assessment Weight Mgt (Other Care) Height: 5 ft 9 in Weight:: 264 lb BMI: 38.9 Psychosocial - Initial Assess Target Goals Target Goals Referral to Behavioral Health PS - Interventions: Yes: Attend Stress Management Classes and No: Referral to Behavioral Health if PHQ-9 score >9:, No: Referral to [facility] and No: Referral to Physician if PHQ-9 if score is 5-9: Patient Health Questionnaire PHQ-9 Screening 60-Day Re-eval Assessment: 1. Little interest or pleasure in doing things: Not at all 2. Feeling down, depressed, or hopeless: Not at all 3. Trouble falling or staying asleep, or sleeping too much: More than half the days 4. Feeling tired or having little energy: More than half the days 5. Poor appetite or overeating: More than half the days 6. Feeling bad about yourself -- or that you are a failure or have let yourself or your family down: Not at all 7. Trouble concentrating on things, such as reading the newspaper or watching television: Not at all 8. Moving or speaking so slowly that other people could have noticed. Or the opposite - being so fidgety or restless that you have been moving around a lot more than usual: Not at all 9. Thoughts that you would be better off , or of hurting yourself in some way: Not at all How difficult have these problems made it for you to do your work, take care of things at home, or get along with other people?: Somewhat difficult Total Score: 6 Self-Efficacy 6-Item Scale 60-Day Re-eval Assessment: We would like to know how confident you are in doing certain activities. Please select your confidence level for: Fatigue Select Number: 5 Physical Discomfort or Pain Select Number: 10 Emotional Distress Select Number: 10 Other Symptoms or Health Problems Select Number: 5 Different Tasks and Activities Select Number: 1 Medication Select Number: 5 Total Score:: 6 Nutrition Survey Nutrition Survey Instructions Scoring Instructions Exercise - 30-day Assessment Physician Prescribed Exercise Modalities: SciFit Stepper and SciFit Lateral [place] Exercise - 60-day Assessment Visit Date of Eval: 10/12/24 Session #:: 17 Physician Prescribed Exercise Modalities: SciFit Stepper and SciFit Lateral [place] Frequency: 3x/week for 12 weeks [36 sessions] Intensity: 60-80% of age predicted maximum heart rate reserve Duration: 30 - 45 minutes METs - Progression 0.5-1.0 weekly:: 0.5 Current METSs:: 2.5 Target Heart Rate:: 85-113 Target RPE 11-14 Current RPE:: 12-14 Current RPE:: 15 Maximum Excercise HR:: 116 Resting Blood Pressure: 128/72 Maximum Exercise Blood Pressure: 170/82 EKG Type: NSR Current Physical Activity or Exercising minutes: 30 Outcomes & Goals Goals:: Verbalizes understanding of THR, RPE & goal METS by session 6, Documents in home exercise log/reports 30 min aerobic 5 day/wk by DC and Demonstrates accurate pulse taking by DC Intervention & Plan Exercise Program Goals: Instruct on personal THR & RPE, Instruct on MET level & personal MET goal, Show patient to take own pulse /validate performance until accurate and Instruct on home exercise 30-day Reassessments 30 day Reassessments:: Progressing Reassessment Notes & Comments:: target HR adjusted Intervention & Plan Plan/Intervention: Instruct warm-up & cool-down if exercising at > 2 METs, Instruct on symptoms of exercise intolerance & actions to take, Instruct & monitor on saf and Assess intial functional capacity & safety risk 30-day Reassessments 30 day Reassessments:: Progressing Reassessment Notes & Comments:: Pt is continuing to increase exercise workloads, and rating RPE at target range. continues to show determination to improve stamina and attending rehab consistently. 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 Exercise - Final/Discharge Physician Prescribed Exercise Modalities: SciFit Stepper and SciFit Lateral [place] Nutrition - 30-Day Assessment Weight Mgt (Other Care) Height: 5 ft 9 in Weight:: 264 lb BMI: 38.9 Nutrition - 60-Day Assessment Program Goals Nutrition Program Goals Patient has diagnosis of Hyperlipidemia (ICD E78)?: Yes Visit Date of Eval: 10/12/24 Session #:: 17 Cholesterol/Lipids (Other Core Measures) Determine presence & major risk factors that modify LDL goal: Hypertension or hypertensive medication, Family history of premature CHD in Male < 55 years: female <65 yearsFa and Age men > 45 years; women >/= 55 years Outcomes/Goals: Pt IDs own risk factors & lifestyle modifications by Session 10, Verbalizes symptoms of angina & response by session 3. and Pt independently manages Intervention/Plan: Advocate for lipid panel cholesterol medication if applicable, Instruct on personal lipid levels & lipid goals/NCEP guidelines and Instruct on cholesterol Referral to dietitian:: No 30-day Reassessments:: Progressing Reassessment Notes & Comments:: Pt to attend dietary class with [facility] canoe inspector final during cardiac rehab. the class is scheduled for October. Diabetes (Other Core Measures) Diabetes Type: Not Applicable Weight Mgt (Other Care) Height: 5 ft 9 in Weight:: 264 lb BMI: 38.9 Diagnosis High BMI/Morbid Obesity BMI> 35% ICD-10 Z68: Yes Outcomes/Goals: Pt sets, maintains & shows weight loss goal & trend during rehab Intervention/Plan: Instruct on ideal BMI & set weight loss goal w/patient, Assist pt to ID & incorporate diet changes for weight loss by S9, Refer to Structured Weight Loss program as appropriate and Encourage goal of using 250-300dcal per session for weight loss 30 day Reassessments:: Progressing Reassessment Notes & Comments:: continuing to work toward weight loss goal. Healthy Eating Habits Will attend diet classes:: Yes Outcomes/Goals:: Consume diet rich in vegs,fruits,whole grain/high fiber,fish,lean meat and Limit sat/trans fats,cholesterol & added salts & sugars Intervention/Plan:: Assess current eating habits 30-day Reassessments:: Progressing Reassessment Notes & Comments:: to attend dietary class with [facility] canoe inspector final. Education Gave educational materials for:: Signs & symptoms of hypoglycemia, Signs & symptoms of hyperglycemia, Relate diabetes to coronary artery disease and Healthy eating Core - Final Assessment Tobacco Use Reassessment Notes & Comments:: Pt is a non smoker. Core - 60-Day Assessment Visit Date of Eval: 10/12/24 Medication Compliance Preventative Medication(s):: Aspirin, Ticagrelor/P2Y12 inhibitor and ARB (Angiotensi Rcap) H/O mental health issues: depression, anxiety, or addiction?: No Doesn?t believe in the benefits of treatment?: No Believes medications are unnecessary or harmful?: No Has a concern about medication side effects?: No Expresses concern over the cost of medications?: No Outcomes/Goals: Verbalizes medications,desired effect & common side effects @ DC, Pt self-reports following medication regimen and Keeps card in wallet w/medications listed by DC Interventions/plans: Instruct on medication effects & side effects, Review medication list w/patient every two weeks and Instruct importance of taking meds as ordered & assist problem solving 30-day Reassessments:: Met Reassessment Notes & Comments:: Pt is continuing to take medications as prescribed. Tobacco Use Tobacco Use: Non-smoker 30-day Reassessments:: Met Reassessment Notes & Comments:: Pt is a non smoker. Hypertension Hypertension Diagnosis:: Hypertension ICD-10 I10 Resting Blood Pressure:: 128/72 [place] [employer] Hypertension Guidelines Peak Exercise Blood Pressure:: 170/82 Outcomes/Goals: Able to verbalize/achieve optimal blood pressure <130/80 and Incorporates diet changes & exercise for blood pressure control by DC Interventions/plan: Instruct on optimal blood pressure, hypertension & medications and Instruct on effects of sodium, alcohol, stress, exercise &hypertension 30 day Reassessments:: Progressing Reassessment Notes & Comments:: Patient blood pressures are staying within safe range for exercise. Tobacco Cessation Referral Smoking Cessation Referral:: No Individual Education/Counseling:: No Education Schedule Given:: Yes Psychosocial - 30-Day Assess Target Goals Target Goals Referral to Behavioral Health PS - Interventions: Yes: Attend Stress Management Classes and No: Referral to Behavioral Health if PHQ-9 score >9:, No: Referral to [facility] and No: Referral to Physician if PHQ-9 if score is 5-9: Outcomes/Goals: See list Psychosocial Outcomes/Goals:: ID's personal stressors & 2 strategies to manage stress by discharge Psychosocial - 60-Day Assess VIsit Date of Eval: 10/12/24 Session #:: 17 History of previous Mental disease:: No Target Goals Target Goals Psychosocial Test Tool Used:: PHQ-9 Questionnaire phq-9 Severity See PHQ-9 Score: 6 Referral to Behavioral Health PS - Interventions: Yes: Attend Stress Management Classes and No: Referral to Behavioral Health if PHQ-9 score >9:, No: Referral to [facility] and No: Referral to Physician if PHQ-9 if score is 5-9: Outcomes/Goals: See list Psychosocial Outcomes/Goals:: ID's personal stressors & 2 strategies to manage stress by discharge Intervention/Plan: See List Interventions/Plan:: Assess stressors,coping strategies & signs of derpression on admission, Instruct/assist pt to develop coping & personal stress Mgt strategies, Refer to Behavioral Health if appropriate, Refer to Physician if appropriate, Instruct patient to recognize signs & symptoms of depression and Instruct patient to recog 30-day Reassessments: 30 day Reassessments:: Met Reassessment Notes & Comments:: Pt denies any mental health concerns at this time. Psychosocial - 90-Day Assess Target Goals Target Goals Referral to Behavioral Health PS - Interventions: Yes: Attend Stress Management Classes and No: Referral to Behavioral Health if PHQ-9 score >9:, No: Referral to [facility] and No: Referral to Physician if PHQ-9 if score is 5-9: Psychosocial - Final Assessmen Target Goals Target Goals Referral to Behavioral Health PS - Interventions: Yes: Attend Stress Management Classes and No: Referral to Behavioral Health if PHQ-9 score >9:, No: Referral to [facility] and No: Referral to Physician if PHQ-9 if score is 5-9: Nutrition - 90-Day Assessment Weight Mgt (Other Care) Height: 5 ft 9 in Weight:: 264 lb BMI: 38.9 Nutrition - Final Assessment Weight Mgt (Other Care) Height: 5 ft 9 in Weight:: 264 lb BMI: 38.9
[2024-10-12 10:43] VITALS: BP 128/72
[2024-10-12 11:07] VITALS: BP 128/72; BMI 38.9
== END 2024-10-16 23:59 ==
LOC: CR 14:15
PROVIDERS: PCP Internal Medicine; Referring Provider Internal Medicine Cardiovascular Disease; Visit Provider Internal Medicine Cardiovascular Disease
DX: I25.10 Atherosclerotic heart disease of native coronary artery without angina pectoris (principal); Z95.5 Presence of coronary angioplasty implant and graft

== ENCOUNTER 2024-11-13 14:15 | Outpatient (RCR) | payer MEDICARE, SELFPAY ==
[2024-10-12 11:07] VITALS: BMI 38.9
[2024-10-17 01:43] VITALS: BP 128/72; BP 130/72
--- NOTE | 2024-11-11 08:56 | CR.ITP_ITS ---
Exercise - Initial Assessment Physician Prescribed Exercise Modalities: SciFit Stepper and SciFit Lateral Manager Cardiac Nutrition - Initial Assessment Weight Mgt (Other Care) Height: 5 ft 9 in Weight:: 263 lb BMI: 38.8 Psychosocial - Initial Assess Target Goals Target Goals Referral to Behavioral Health PS - Interventions: Yes: Attend Stress Management Classes Patient Health Questionnaire PHQ-9 Screening 90-Day Re-eval Assessment: 1. Little interest or pleasure in doing things: Not at all 2. Feeling down, depressed, or hopeless: Not at all 3. Trouble falling or staying asleep, or sleeping too much: More than half the days 4. Feeling tired or having little energy: More than half the days 5. Poor appetite or overeating: More than half the days 6. Feeling bad about yourself -- or that you are a failure or have let yourself or your family down: Not at all 7. Trouble concentrating on things, such as reading the newspaper or watching television: Not at all 8. Moving or speaking so slowly that other people could have noticed. Or the opposite - being so fidgety or restless that you have been moving around a lot more than usual: Not at all 9. Thoughts that you would be better off , or of hurting yourself in some way: Not at all How difficult have these problems made it for you to do your work, take care of things at home, or get along with other people?: Somewhat difficult Total Score: 6 Self-Efficacy 6-Item Scale 90-Day Re-eval Assessment: We would like to know how confident you are in doing certain activities. Please select your confidence level for: Fatigue Select Number: 5 Physical Discomfort or Pain Select Number: 10 Emotional Distress Select Number: 10 Other Symptoms or Health Problems Select Number: 5 Different Tasks and Activities Select Number: 1 Medication Select Number: 5 Total Score:: 6 Nutrition Survey Nutrition Survey Instructions Scoring Instructions Exercise - 30-day Assessment Physician Prescribed Exercise Modalities: SciFit Stepper and SciFit Lateral [place] Exercise - 60-day Assessment Physician Prescribed Exercise Modalities: SciFit Stepper and SciFit Lateral [place] Exercise - 90-day Assessment Visit Date of Eval: 11/11/24 Session #:: 27 Physician Prescribed Exercise Modalities: SciFit Stepper and SciFit Lateral Manager Cardiac Frequency: 3x/week for 12 weeks [36 sessions] Intensity: 60-80% of age predicted maximum heart rate reserve Current METSs:: 2.6 Target Heart Rate:: 85-113 Current RPE:: 12 Maximum Excercise HR:: 103 Resting Blood Pressure: 110/68 Maximum Exercise Blood Pressure: 154/62 EKG Type: NSR to ST w/occas multifocal PVC, several runs of bigeminy Outcomes & Goals Goals:: Verbalizes understanding of THR, RPE & goal METS by session 6, Documents in home exercise log/reports 30 min aerobic 5 day/wk by DC, Demonstrates accurate pulse taking by DC and Other additional outcome/goals: see below Intervention & Plan Exercise Program Goals: Instruct on personal THR & RPE, Instruct on MET level & personal MET goal, Show patient to take own pulse /validate performance until accurate, Instruct on home exercise and Other additional plan/int Physical Activity Home Exercise Physical Activity - Home Exercise: Safe Exercise, Warm-up, Self-monitoring, Cool-Down, Home Exercise > 30 min Daily and Sitting Time <3 hours/daily Outcomes & Goals Outcomes/Goals: Demonstrates correct Warm-up/exercise Cool-Down (S3) if = 2.5 METs, Verbalizes symptoms of exercise intolerance by Session 3 (S3), Demonstrate safe equipment use (S3) & follows exercise prescrition (6) and Other: See below Intervention & Plan Plan/Intervention: Instruct warm-up & cool-down if exercising at > 2 METs, Instruct on symptoms of exercise intolerance & actions to take, Instruct & monitor on saf, Assess intial functional capacity & safety risk and Other See below 30-day Reassessments 30 day Reassessments:: Progressing Reassessment Notes & Comments:: Proper warm up and cool down reviewed with pt. Pt is able to return demonstration. Exercise - Final/Discharge Physician Prescribed Exercise Modalities: SciFit Stepper and SciFit Lateral Manager Cardiac Nutrition - 30-Day Assessment Weight Mgt (Other Care) Height: 5 ft 9 in Weight:: 263 lb BMI: 38.8 Nutrition - 60-Day Assessment Weight Mgt (Other Care) Height: 5 ft 9 in Weight:: 263 lb BMI: 38.8 Core - 30-Day Assessment Hypertension [place] [employer] Hypertension Guidelines Reassessment Notes & Comments:: Pt's BP's have improved. Recently pt's BP's have been within AHA normal limits. Core - Final Assessment Hypertension [place] [employer] Hypertension Guidelines Reassessment Notes & Comments:: Pt's BP's have improved. Recently pt's BP's have been within AHA normal limits. Core - 90 Day Assessment Visit Date of Eval: 11/11/24 Session #:: 27 Medication Compliance Preventative Medication(s):: Aspirin, Ticagrelor/P2Y12 inhibitor and ARB (Angiotensi Rcap) H/O mental health issues: depression, anxiety, or addiction?: No Doesn?t believe in the benefits of treatment?: No Believes medications are unnecessary or harmful?: No Has a concern about medication side effects?: No Expresses concern over the cost of medications?: No Outcomes/Goals: Verbalizes medications,desired effect & common side effects @ DC, Pt self-reports following medication regimen, Keeps card in wallet w/medications listed by DC and Other additional outcome/goals: Interventions/plans: Instruct on medication effects & side effects, Review medication list w/patient every two weeks, Instruct importance of taking meds as ordered & assist problem solving and Other additional Tobacco Use Tobacco Use: Non-smoker Hypertension Hypertension Diagnosis:: Hypertension ICD-10 I10 Resting Blood Pressure:: 110/68 [place] [employer] Hypertension Guidelines Peak Exercise Blood Pressure:: 154/62 Outcomes/Goals: Able to verbalize/achieve optimal blood pressure <130/80, Incorporates diet changes & exercise for blood pressure control by DC and Other additional outcomes/goals Interventions/plan: Instruct on optimal blood pressure, hypertension & medications, Instruct on effects of sodium, alcohol, stress, exercise &hypertension and Other additional plan/interventions 30 day Reassessments:: Met Reassessment Notes & Comments:: Pt's BP's have improved. Recently pt's BP's have been within AHA normal limits. Tobacco Cessation Referral Smoking Cessation Referral:: No Individual Education/Counseling:: No Education Schedule Given:: Yes Psychosocial - 30-Day Assess Target Goals Target Goals Referral to Behavioral Health PS - Interventions: Yes: Attend Stress Management Classes Psychosocial - 60-Day Assess Target Goals Target Goals Referral to Behavioral Health PS - Interventions: Yes: Attend Stress Management Classes Psychosocial - 90-Day Assess VIsit Date of Eval: 11/11/24 Session #:: 27 Target Goals Target Goals Psychosocial Test Tool Used:: [employer] PadProof QOL Cardiac and PHQ-9 Questionnaire phq-9 Severity Referral to Behavioral Health PS - Interventions: Yes: Attend Stress Management Classes Outcomes/Goals: See list Psychosocial Outcomes/Goals:: ID's personal stressors & 2 strategies to manage stress by discharge and Other Additional outcome/goals: Intervention/Plan: See List Interventions/Plan:: Assess stressors,coping strategies & signs of derpression on admission, Instruct/assist pt to develop coping & personal stress Mgt strategies, Refer to Behavioral Health if appropriate, Refer to Physician if appropriate, Instruct patient to recognize signs & symptoms of depression, Instruct patient to recog and Other additional plan/intervention 30-day Reassessments: 30 day Reassessments:: Progressing Reassessment Notes & Comments:: Pt admits he has anger issues. Will continue to monitor and refer pt to behavioral health if necessary. Psychosocial - Final Assessmen Target Goals Target Goals Referral to Behavioral Health PS - Interventions: Yes: Attend Stress Management Classes Nutrition - 90-Day Assessment Program Goals Nutrition Program Goals Patient has diagnosis of Hyperlipidemia (ICD E78)?: Yes Visit Date of Eval: 11/11/24 Session #:: 27 Cholesterol/Lipids (Other Core Measures) Determine presence & major risk factors that modify LDL goal: Hypertension or hypertensive medication, Low HDL cholesterol <40 mg/dL*, Family history of premature CHD in Male < 55 years: female <65 yearsFa and Age men > 45 years; women >/= 55 years Outcomes/Goals: Pt IDs own risk factors & lifestyle modifications by Session 10, Verbalizes symptoms of angina & response by session 3., Pt independently manages and Other Additional Outcomes/Goals: Intervention/Plan: Advocate for lipid panel cholesterol medication if applicable, Instruct on personal lipid levels & lipid goals/NCEP guidelines, Instruct on cholesterol and Other additional plan/int Diabetes (Other Core Measures) Diabetes Type: Not Applicable Weight Mgt (Other Care) Height: 5 ft 9 in Weight:: 263 lb BMI: 38.8 Diagnosis Overweight/Obesity BMI> 30% ICD-10 E66: Yes Diagnosis High BMI/Morbid Obesity BMI> 35% ICD-10 Z68: Yes Outcomes/Goals: Pt sets, maintains & shows weight loss goal & trend during rehab and Other additional outcomes/goals Intervention/Plan: Instruct on ideal BMI & set weight loss goal w/patient, Assist pt to ID & incorporate diet changes for weight loss by S9, Refer to Structured Weight Loss program as appropriate, Encourage goal of using 250- 300dcal per session for weight loss and Other additional plan/interventions Healthy Eating Habits Will attend diet classes:: Yes Outcomes/Goals:: Consume diet rich in vegs,fruits,whole grain/high fiber,fish,lean meat, Limit sat/trans fats,cholesterol & added salts & sugars and Other additional outcome/goals: Intervention/Plan:: Assess current eating habits and Other Additional plan/interventions 30-day Reassessments:: Met Reassessment Notes & Comments:: Pt has attended nutrition class last week. Pt understands the benefits of a heart healthy low sodium diet Education Gave educational materials for:: Signs & symptoms of hypoglycemia, Signs & symptoms of hyperglycemia, Relate diabetes to coronary artery disease and Healthy eating Nutrition - Final Assessment Weight Mgt (Other Care) Height: 5 ft 9 in Weight:: 263 lb BMI: 38.8
[2024-11-11 09:17] VITALS: BP 110/68; BMI 38.8
== END 2024-11-13 23:59 ==
LOC: CR 14:15
PROVIDERS: PCP Internal Medicine; Referring Provider Internal Medicine Cardiovascular Disease; Visit Provider Internal Medicine Cardiovascular Disease
DX: I25.10 Atherosclerotic heart disease of native coronary artery without angina pectoris (principal); Z95.5 Presence of coronary angioplasty implant and graft
CPT/HCPCS: 93798

== ENCOUNTER 2024-12-04 14:15 | Outpatient (RCR) | payer MEDICARE, SELFPAY ==
[2024-11-11 09:17] VITALS: BMI 38.8
[2024-11-14 02:08] VITALS: BP 110/68; BP 128/72; BP 130/72
== END 2024-12-14 23:59 ==
LOC: CR 14:15
PROVIDERS: PCP Internal Medicine; Referring Provider Internal Medicine Cardiovascular Disease; Visit Provider Internal Medicine Cardiovascular Disease
DX: I25.10 Atherosclerotic heart disease of native coronary artery without angina pectoris (principal); Z95.5 Presence of coronary angioplasty implant and graft
CPT/HCPCS: 93798

== ENCOUNTER → 2025-01-06 | Outpatient (CLI) | payer MEDICARE, SELFPAY ==
[2024-11-11 09:17] VITALS: BMI 38.8
[2025-01-06 11:15] LABS: Absolute Lymphocyte Count 2.13 X10^3/uL (0.83-4.51); Absolute Neutrophil Count 4.8 X10^3/uL (2.0-7.7); Basophil# 0.06 X10^3/uL; Basophil% 0.8 % (0-1); Eosinophil# 0.09 X10^3/uL; Eosinophils% 1.2 % (0-5); Hemoglobin 15.7 g/dL (13.0-16.5); Lymphocyte # 2.13 X10^3/ul (0.83-4.51); Lymphocyte % 27.4 % (19-41); Mean Corp Hgb Conc 33.4 g/dL (32-36); Mean Corpuscular Hgb 30.6 pg (27.0-32.0); Mean Corpuscular Volume 91.6 fL (80-94); Mean Platelet Vol. 10.2 fl (6.2-12.0); Monocyte# 0.62 X10^3/uL; NRBC Flagged by Analyzer 0 % (0-5); Neutrophil # 4.84 X10^3/uL (2.7-7.7); Neutrophil % 62.3 % (47-70); Platelet Count 189 K/mm3 (150-450); RBC Distribution Width CV 13.2 % (11.6-14.6); RBC Distribution Width SD 44.9 fl (35.1-43.9); Red Blood Count 5.13 M/mm3 (4.6-6.2); White Blood Count 7.8 K/mm3 (4.4-11.0)
[2025-01-06 12:47] LABS: Hemoglobin A1c 5.9 % (<=5.6)
[2025-01-06 13:06] LABS: ALB/GLOB Ratio 1.3 RATIO (0.9-2.4); AST(SGOT) 24 U/L (<=37); Alanine Aminotransfer ALT/SGPT 22 U/L (<=46); Albumin, Serum 4.3 g/dL (3.4-4.8); Alkaline Phosphatase 94 U/L (40-129); Anion Gap 14 (5-15); BUN 20 mg/dL (4-19); BUN/Creat Ratio 22.6 RATIO (10-20); Calcium,Total 9.4 mg/dL (7.6-11.0); Carbon Dioxide 26.1 mmol/L (21.0-32.0); Chloride 98 mmol/L (98-108); Cholesterol 180 mg/dL (<=200); Creatinine, Serum 0.87 mg/dL (0.70-1.20); EST Glomerular Filtration Rate 88 (>60); Globulin 3.3 g/dL (2.2-4.2); Glucose 112 mg/dL (70-99); High Density Lipoprotein 44 mg/dL; Low Density Lipoprotein Calc. 98 mg/dL; Magnesium 2.2 mg/dL (1.5-2.2); Potassium 3.5 mmol/L (3.3-5.1); Protein, Total 7.6 g/dL (5.9-8.4); Sodium Level 138 mmol/L (133-145); Triglycerides 189 mg/dL; Very Low Density Lipoprotein 38 mg/dL (5-40); cholesterol:hdl ratio screen 4.05
[2025-01-06 13:08] LABS: Free T3 2.9 pg/mL (2.18-3.98); PSA,Total - Annual Screen 0.12 ng/mL (0.02-4.00); Thyroid Stim Hormone (TSH) 0.169 uIU/mL (0.300-4.200); Vitamin B12 1138 pg/mL (180-914); Vitamin D,25 Hydroxy 33.2 ng/mL (30-100)
== END | disposition home or self-care (01) ==
LOC: LAB 10:49
PROVIDERS: PCP Internal Medicine; Referring Provider Internal Medicine; Visit Provider Internal Medicine
DX: E03.9 Hypothyroidism, unspecified (principal); I50.30 Unspecified diastolic (congestive) heart failure; I11.0 Hypertensive heart disease with heart failure; I25.10 Atherosclerotic heart disease of native coronary artery without angina pectoris; R73.9 Hyperglycemia, unspecified; N40.0 Benign prostatic hyperplasia without lower urinary tract symptoms; G47.33 Obstructive sleep apnea (adult) (pediatric); E55.9 Vitamin D deficiency, unspecified; Z95.5 Presence of coronary angioplasty implant and graft; Z12.5 Encounter for screening for malignant neoplasm of prostate
CPT/HCPCS: 36415; 80053; 80061; 82306; 82607; 83036; 83735; 84153; 84439; 84443; 84481; 85025; G0103

== ENCOUNTER 2025-05-08 08:31 | Emergency (ER) | payer MEDICARE, SELFPAY ==
[2024-11-11 09:17] VITALS: BMI 38.8
[2025-05-08] VITALS (10 sets, daily range): BP systolic 103–134; BP diastolic 58–83; PULSE 78–88; RESP 16–20; TEMP 36.9–37.2; O2SAT 86–100; BMI 38.2
--- NOTE | 2025-05-08 08:32 | US_ITS ---
PROCEDURE: GALLBLADDER 05/08/2025 REASON FOR EXAM: PAIN RUQ COMPARISON: CT abdomen and pelvis 07/27/2021. FINDINGS: Liver: Unremarkable. Gallbladder: Distended measures 12.2 cm in length. Mild gallbladder wall thickening measures 3.5 mm in thickness. Small dependent gallstone measures 1 cm. The technologist reported a negative Sykes sign. Common bile duct: Mildly dilated measures 8 mm in inner diameter. Pancreas: Unremarkable. Right kidney: No hydronephrosis. No elicited stenosis. The right kidney measures 11.4 cm in length. US/Gallbladder IMPRESSION: Distended measures 12.2 cm in length. Mild gallbladder wall thickening measure s 3.5 mm in thickness. Small dependent gallstone measures 1 cm. The technologist however reported a negative Sykes sign. Find ings overall are suggestive of acute cholecystitis with mild common bile duct dilation. Choledocholithiasis or an obstructing les ion can not be excluded. Reading Location: [facility]
--- NOTE | 2025-05-08 08:32 | RAD_ITS ---
PROCEDURE: CHEST 1 VIEW (PORTABLE) 05/08/2025 REASON FOR EXAM: CHEST PAIN TECHNIQUE: Frontal view of the chest. COMPARISON: Chest x-ray 07/23/2024. FINDINGS: Hardware: Monitor electrodes overlie the chest. Heart: No cardiomegaly. Lungs: Low lung volumes. Interstitial pulmonary densities may represent pulmonary edema. Obliteration of the costophrenic angles and small pleural effusions can not be excluded. No pneumothorax. Bones: No acute bony abnormalities. Other: RAD/Chest 1 View (Portable) IMPRESSION: Interstitial pulmonary densities may represent pulmonary edema. Pneumonitis or pneumonia can not be excluded. Reading Location: [id number]
--- NOTE | 2025-05-08 08:33 | EKG12_ITS ---
Test Reason : WEAKNESS Blood Pressure : */* mmHG Vent. Rate : 87 BPM Atrial Rate : 87 BPM P-R Int : 156 ms QRS Dur : 98 ms QT Int : 394 ms P-R-T Axes : 48 -75 68 degrees QTcB Int : 474 ms Normal sinus rhythm Left anterior fascicular block Possible Lateral infarct , age undetermined Abnormal ECG Confirmed by NEIL ALVARADO MD ([id number]), school photograph editor BRITT CORTEZ ([id number]) on 05/10/2025 1:02:43 PM Referred By: BB Confirmed By: NEIL ALVARADO MD
--- NOTE | 2025-05-08 08:34 | EX.ED.DYSGE1 ---
HPI History of Present Illness Chief Complaint: Weakness Informant: patient and EMS Narrative Narrative: 79-year-old male presenting with generalized weakness for the past 3 days, this morning around 4 hours ago he was trying to get out of bed and could not, he slid down the edge of it to the floor and was unable to get up and EMS needed to be called to bring him here. He had a minor fall yesterday due to feeling weak without injuring himself and he did not injure himself today either. He states he has pre-existing left shoulder and right hip pain for 10 years or more that is no worse today, some mild low back discomfort that is also not new, and no other new extremity or back/neck pains. He states that several days ago he started getting a gas bubble in my chest indicating that he was having some pressure discomfort pointing to his epigastrium/lower chest and indicating that it went to both sides basically all the way across his upper abdomen/lower chest and it was painful 30 seconds after swallowing so he has not eaten anything in several days, and he has not drink much in the way of fluids either. States he is always a little dyspneic that is no different and usually denies any acute cough. States that his normal temperature is 97 and he had an elevated temperature for him of 98 yesterday. He states this discomfort in his upper abdomen lower chest resolved around 24 hours ago and he does not have any of it right now or since. However, he indicates that he has not eaten anything in that amount of time either. He has no history of any abdominal surgeries in the past. 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 abdomen Abdominal obesity Elective procedure for unacceptable cosmetic appearance Heart disease History of UTI Allergies Uses wheelchair Ambulates with cane Dietary restriction History of diverticulitis On home oxygen therapy History of CHF (congestive heart failure) Loss of hearing Wears glasses Wears partial dentures Wears dentures Alcohol use Thyroid disease Walker as ambulation aid Arthritis Bladder disease Prostate disease High cholesterol Restless legs Back pain Migraine headache History of hiatal hernia Gastric reflux Former smoker COPD (chronic obstructive pulmonary disease) Emphysema, unspecified Chronic cough Shortness of breath on exertion History of edema History of echocardiogram History of stress test Cardiology follow-up encounter Hypertension Essential hypertension Groin mass chipped bones Torn cartilage Lung nodule Dyspnea Cyst of right kidney Asbestos exposure Emphysema lung Bronchitis Bronchiectasis Asthma Obesity (BMI 30-39.9) Nicotine dependence in remission Neuropathy GERD (gastroesophageal reflux disease) Hypothyroidism Obstructive sleep apnea Hyperlipidemia Home Medications ?Medication ?Instructions ?Recorded ?Last Taken ?Type polyethylene glycol 3350 17 gram 17 g PO DAILY constipation 06/02/21 Unknown History oral powder packet (Miralax) calcium carbonate (Tums) 200 mg PO BID PRN supplement 06/05/21 Unknown History ibuprofen 600 mg tablet 600 mg PO Q6H PRN fever or pain 04/27/22 Unknown Rx #20 tabs albuterol sulfate 90 mcg/actuation 2 puff inhalation Q4H PRN 06/05/22 Unknown Rx aerosol inhaler (ProAir HFA) shortness of breath or wheezing #18 grams dutasteride 0.5 mg-tamsulosin ER 1 cap PO QDAY prostate 06/02/24 Unknown History 0.4 mg capsule ext.release 24hr mphas cholecalciferol (vitamin D3) 25 2,000 unit PO DAILY vitamin 07/28/24 Unknown History mcg (1,000 unit) capsule (Vitamin D3) aspirin 81 mg tablet,delayed 81 mg PO QDAY 08/05/24 Unknown History release (Adult Low Dose Aspirin) cyanocobalamin (vitamin B-12) 1,000 mcg PO DAILY vitamin #90 tabs 09/04/24 Unknown Rx 1,000 mcg tablet blood-glucose meter #1 ea 09/14/24 Unknown Rx blood sugar diagnostic (Blood #200 ea 10/07/24 Unknown Rx Glucose Test strips) oxybutynin chloride 10 mg 10 mg PO DAILY bladder #90 tabs 11/30/24 Unknown Rx tablet,extended release 24 hr levothyroxine 125 mcg tablet 125 mcg PO DAILY thyroid #90 tabs 01/06/25 Unknown Rx clopidogrel 75 mg tablet (Plavix) 75 mg PO QDAY #90 tabs 01/13/25 Unknown Rx ezetimibe 10 mg tablet (Zetia) 10 mg PO QDAY #90 tabs 01/13/25 Unknown Rx furosemide 40 mg tablet 40 mg PO QAM diuretic #90 tabs 01/13/25 Unknown Rx losartan 50 mg tablet 50 mg PO Q OTHER DAY blood pressure 01/13/25 Unknown History lancets #200 ea 01/26/25 Unknown Rx losartan 50 mg-hydrochlorothiazide 1 tab PO Q OTHER DAY #45 tabs 04/26/25 Unknown Rx 12.5 mg tablet Allergy/AdvReac Type Severity Reaction Status Date / Time Penicillins Allergy Severe Anaphylaxis Verified 01/13/25 09:26 perfume Allergy Intermediate Other-triggers Verified 01/13/25 09:26 asthma attack perflutren (From Definity) Allergy Unknown Verified 01/13/25 09:26 vancomycin AdvReac Intermediate Other-htn Verified 01/13/25 09:26 atorvastatin (From Lipitor) AdvReac Mild Other-myalg Verified 01/13/25 09:26 ias dobutamine AdvReac Mild Other-muscle Verified 01/13/25 09:26 spasm egg AdvReac Mild WATER Verified 01/13/25 09:26 BLISTERS fluticasone (From Flonase) AdvReac Mild Other-noseb Verified 01/13/25 09:26 leed rosuvastatin (From Crestor) AdvReac Mild Other-myalg Verified 01/13/25 09:26 ias simvastatin (From Zocor) AdvReac Mild Other-myalg Verified 01/13/25 09:26 ias Family History Father CAD (coronary artery disease) Other Asthma Surgical History History of coronary artery stent placement (07/28/24) History of transurethral resection of bladder tumor (TURBT) (~04/2022) History of colonoscopy History of herniorrhaphy S/P trigger finger release pin placement finger surgery History of repair of rotator cuff History of right and left heart catheterization (09/28/16) Social History Smoking Status: Former smoker pack-years: 168 how long ago did patient quit smokin, 4p/d second hand exposure: Yes alcohol intake: current alcohol intake frequency: holidays/special occasions only details: Once a Month substance use type: does not use what type of physical activity do you participate in: none ROS ROS ED Constitutional Constitutional ED: Reports fatigue and weakness; Denies chills or fever(s) Eyes Eyes: Denies change in vision or diplopia ENT ENT ED: Denies rhinorrhea or sore throat Cardiovascular Cardiovascular: Reports as per HPI and chest pain; Denies palpitations, radiating jaw, neck or arm pain or syncope Respiratory/Chest Respiratory/Chest: Denies cough or dyspnea Gastrointestinal Gastrointestinal: Reports abdominal pain; Denies diarrhea, nausea or vomiting Genitourinary Genitourinary ED: Denies dysuria or hematuria Musculoskeletal Musculoskeletal: Reports arthralgias and back pain; Denies neck pain Integumentary Reports Abrasions; Denies abscess or rash Neurologic Neurologic: Denies headache(s), paresthesias or weakness Psychiatric Psychiatric: Denies anxiety or suicidal thoughts EXAM Physical Exam Const Vital Signs: 05/08/25 08:32 05/08/25 08:41 05/08/25 08:41 Temperature 98.4 F Temperature Source Oral Pulse Rate 78 87 Respiratory Rate 20 H Respiratory Effort Normal Respiratory Pattern Normal Blood Pressure 134/79 H 127/69 H Blood Pressure Mean 97 88 Pulse Ox 94 92 Oxygen Delivery Method Room Air Room Air Oxygen Flow Rate (L/min) 05/08/25 10:30 05/08/25 12:00 05/08/25 13:00 Temperature Temperature Source Pulse Rate 84 88 Respiratory Rate 19 H 19 H Respiratory Effort Respiratory Pattern Blood Pressure 118/58 L 114/83 H Blood Pressure Mean 78 93 Pulse Ox 92 93 86 Oxygen Delivery Method Room Air Room Air Room Air Oxygen Flow Rate (L/min) 05/08/25 13:02 05/08/25 15:57 Temperature 98.9 F Temperature Source Oral Pulse Rate 82 Respiratory Rate 16 Respiratory Effort Respiratory Pattern Blood Pressure 109/62 Blood Pressure Mean 77 Pulse Ox 94 98 Oxygen Delivery Method Nasal Cannula Room Air Oxygen Flow Rate (L/min) 2 Positive well nourished and well developed General Appearance ED: well developed and NAD HEENT Reports moist mucous membranes normocephalic and atraumatic Eyes PERRL and EOMs intact bilaterally Neck full ROM and supple Resp normal respiratory effort and clear to auscultation bilaterally Cardio regular rate, regular rhythm and no murmurs GI non-distended GI Narrative: Mildly tender right upper quadrant only. Negative Sykes. No guarding or rebound no pulsatile mass otherwise benign abdomen. Auscultation: normoactive bowel sounds Palpation: soft Back/Spine no CVA tenderness General Back: other FROM Extremity normal to inspection Extremity Narrative: Superficial abrasions both forearms ulnar aspect, left anterior knee. Able to passively range all joints without significant limitation or difficulty. General Extremety ED: Negative for edema, pulses abnormal or tenderness General Extremity: Negative for edema or pulses abnormal Neuro oriented x3, CN's II-XII intact bilaterally and no sensory deficits noted Sensorium / Orientation: awake and alert Motor Exam: general weakness Psych mental status grossly normal Skin Skin Narrative: Abrasions to extremities as above MDM MDM MDM Narrative Medical decision making narrative: Patient generally weak with some right upper quadrant tenderness, negative Sykes. His CPK is significantly elevated suggesting rhabdomyolysis and he has accompanying acute kidney injury also. IV fluids started, his troponin is nonspecifically elevated at 25 I do not think acute coronary syndrome is the main issue here. He has elevated liver enzymes, hyperbilirubinemia, and before those came back had already obtained an ultrasound of his right upper quadrant, I reviewed the imaging and the results which I agree with, consistent with some gallstones as well as some gallbladder wall thickening and distention, all of which is suggestive of acute cholecystitis however there is a negative Sykes's. However given history I think this is related to the reason the patient is feeling weak and unable to eat. Right now he is doing well and stable. He has a leukocytosis of 14 his vital signs are stable and he is not clinically septic. Lipase is negative suggesting absence of acute pancreatitis. In addition, 1 view chest x-ray which on my interpretation is negative for acute abnormality but may have some atelectasis due to hypoventilation and there may be changes related to his obesity, radiology read as possible patchy infiltrate, I do not think pneumonia is the primary problem here clinically. I discussed with surgery Dr. Encinas, we do not have GI coverage this weekend, and he is not able to perform an ERCP nor do we have anybody else in the hospital over the weekend that is able to do that. For that reason he recommends transferring the patient and empiric antibiotics which I think is reasonable. Patient prefers to go to [facility] as his first choice. I was not able to reach a physician there, so I was able to discuss with Dr. Oreilly at [facility], who accepted the patient and patient is comfortable going there. He remained stable and has received ciprofloxacin and Flagyl given his anaphylactic reaction to penicillins in his history. Lab Data Attestation: I reviewed the patient's lab results. Labs: Laboratory Results - last 24 hr 05/08/25 05/08/25 05/08/25 08:56 10:41 12:30 WBC 14.0 H RBC 5.62 Hgb 17.2 H Hct 49.7 MCV 88.4 MCH 30.6 MCHC 34.6 RDW Std Deviation 44.5 H RDW Coeff of Andrei 13.7 Plt Count 155 MPV 10.0 Immature Gran % (Auto) 0.400 Neut % (Auto) 88.8 H Lymph % (Auto) 4.8 L [place] % (Auto) 5.7 Eos % (Auto) 0.0 Baso % (Auto) 0.3 Absolute Neuts (auto) 12.5 H Absolute Lymphs (auto) 0.67 L Nucleated RBC % 0 Sodium 138 Potassium 3.9 Chloride 97 L Carbon Dioxide 24.3 Anion Gap 17 H BUN 17 Creatinine 1.27 H Estim Creat Clear Calc 61.43 Est GFR (MDRD) Non-Af 57 L BUN/Creatinine Ratio 13.6 Glucose 134 H Calcium 9.3 Total Bilirubin 5.88 H AST 246 H ALT 230 H Alkaline Phosphatase 141 H Total Creatine Kinase 6557 H Troponin T High Sens 25 H Troponin T Hi Sens 2 Hr 29 H Troponin T Hi Sens 4Hr Total Protein 7.0 Albumin 3.8 Globulin 3.2 Albumin/Globulin Ratio 1.2 Lipase 17 Urine Color Yellow Urine Clarity Clear Urine pH 6.0 Ur Specific [place] 1.020 Urine Protein 30 H Urine Glucose (UA) Normal Urine Ketones 5 H Urine Occult Blood 250 H Urine Nitrite Negative Urine Bilirubin 3 H Urine Urobilinogen 12 H Ur Leukocyte Esterase 25 H Urine RBC 0 SEEN Urine WBC 0-5 SEEN Ur Squamous Epith Cells 0-5 SEEN Urine Bacteria 0 SEEN Urine Mucus 0 SEEN 05/08/25 13:18 WBC RBC Hgb Hct MCV MCH MCHC RDW Std Deviation RDW Coeff of Andrei Plt Count MPV Immature Gran % (Auto) Neut % (Auto) Lymph % (Auto) [place] % (Auto) Eos % (Auto) Baso % (Auto) Absolute Neuts (auto) Absolute Lymphs (auto) Nucleated RBC % Sodium Potassium Chloride Carbon Dioxide Anion Gap BUN Creatinine Estim Creat Clear Calc Est GFR (MDRD) Non-Af BUN/Creatinine Ratio Glucose Calcium Total Bilirubin AST ALT Alkaline Phosphatase Total Creatine Kinase Troponin T High Sens Troponin T Hi Sens 2 Hr Troponin T Hi Sens 4Hr 32 H Total Protein Albumin Globulin Albumin/Globulin Ratio Lipase Urine Color Urine Clarity Urine pH Ur Specific [place] Urine Protein Urine Glucose (UA) Urine Ketones Urine Occult Blood Urine Nitrite Urine Bilirubin Urine Urobilinogen Ur Leukocyte Esterase Urine RBC Urine WBC Ur Squamous Epith Cells Urine Bacteria Urine Mucus Radiography Diagnostic Testing: Clinical Impression(s) from Imaging Studies Chest X-Ray 05/08/25 08:32 IMPRESSION: Interstitial pulmonary densities may represent pulmonary edema. Pneumonitis or pneumonia can not be excluded. Reading Location: [facility] Gallbladder Ultrasound 05/08/25 08:32 IMPRESSION: Distended measures 12.2 cm in length. Mild gallbladder wall thickening measures 3.5 mm in thickness. Small dependent gallstone measures 1 cm. The technologist however reported a negative Sykes sign. Findings overall are suggestive of acute cholecystitis with mild common bile duct dilation. Choledocholithiasis or an obstructing lesion can not be excluded. Reading Location: [facility] Rhythm Strip Rhythm Strip: Sinus Rhythm Rate: 87 Ectopy: None EKG Initial EKG: Attestation: I personally reviewed and interpreted this EKG as follows: Interpretation: Sinus Rhythm, No Acute Injury Pattern and LAFB Management Discussion w/another healthcare provider: [facility] (Surgery) Discharge Plan Triage Chief Complaint: Weakness ED Provider: Trent Tatum Dx/Rx/DC Orders Clinical Impression: Acute calculous cholecystitis, Choledocholithiasis with acute cholecystitis, Rhabdomyolysis, DEANN (acute kidney injury) Prescriptions: No Action calcium carbonate [Tums] 200 mg calcium (500 mg) tablet,chewable 200 mg PO BID PRN (Reason: supplement) albuterol sulfate [ProAir HFA] 90 mcg/actuation HFA aerosol inhaler 2 puff INHALATION Q4H PRN (Reason: shortness of breath or wheezing) Qty: 18 6RF dutasteride-tamsulosin 0.5-0.4 mg capsule, ER multiphase 24 hr 1 cap PO QDAY aspirin [Adult Low Dose Aspirin] 81 mg tablet,delayed release (DR/EC) 81 mg PO QDAY losartan 50 mg tablet 50 mg PO Q OTHER DAY furosemide 40 mg tablet 40 mg PO QAM Qty: 90 1RF ezetimibe [Zetia] 10 mg tablet 10 mg PO QDAY Qty: 90 3RF clopidogrel [Plavix] 75 mg tablet 75 mg PO QDAY Qty: 90 3RF polyethylene glycol 3350 [Miralax] 17 gram Powder In Packet 17 g PO DAILY ibuprofen 600 mg tablet 600 mg PO Q6H PRN (Reason: fever or pain) Qty: 20 0RF cholecalciferol (vitamin D3) [Vitamin D3] 25 mcg (1,000 unit) capsule 2,000 unit PO DAILY cyanocobalamin (vitamin B-12) 1,000 mcg tablet 1,000 mcg PO DAILY Qty: 90 3RF (DME) blood-glucose meter Misc See Rx Instructions .Route Qty: 1 0RF Rx Instructions: As directed May substitute for covered alternative (DME) Blood Glucose Test Strip See Rx Instructions .Route Qty: 200 3RF Rx Instructions: As directed May substitute for covered alternative. Test twice daily as needed. oxybutynin chloride 10 mg tablet extended release 24hr 10 mg PO DAILY Qty: 90 3RF levothyroxine 125 mcg tablet 125 mcg PO DAILY Qty: 90 3RF (DME) lancets Misc See Rx Instructions .Route Qty: 200 2RF Rx Instructions: As directed May substitute for covered alternative losartan-hydrochlorothiazide 50-12.5 mg tablet 1 tab PO Q OTHER DAY Qty: 45 1RF Primary Care Provider: Melina Agosto Referrals: Melina Agosto MD [Primary Care Provider] - Print Language: Burundian Disposition Disposition: Acute Care Hospital Discharge Location: [facility]
[2025-05-08 09:07] LABS: Hematocrit 49.7 % (40-54); Hemoglobin 17.2 g/dL (13.0-16.5); Immature Granulocytes Count 0.060 X10^3/uL (0.0-0.0); Mean Corp Hgb Conc 34.6 g/dL (32-36); Mean Corpuscular Volume 88.4 fL (80-94); Mean Platelet Vol. 10.0 fl (6.2-12.0); NRBC Flagged by Analyzer 0 % (0-5); Platelet Count 155 K/mm3 (150-450); RBC Distribution Width CV 13.7 % (11.6-14.6); RBC Distribution Width SD 44.5 fl (35.1-43.9); Red Blood Count 5.62 M/mm3 (4.6-6.2); White Blood Count 14.0 K/mm3 (4.4-11.0)
[2025-05-08] MEDS: 0.9% Normal Saline (1000mL) 1,000 ML 125 ML IV (09:13)
--- OUTSIDE RECORDS SUMMARY | 2025-05-08 09:21 | XMS RPT_ITS | CCD ---
Author Organization [facility] Care Team Providers Care Garment Manufacturer Name Role Phone DeFinis, Harumi Y Unavailable Unavailable DeFinis, Harumi Y Unavailable Unavailable Keke South Unavailable MD Mo, Ubaldo Tovar Unavailable Keke South Unavailable Dr. Melina Agosto Primary Care Provider Dr. Melina Agosto Attending Provider [phone] Dr. Melina Agosto Referring Provider [phone] Dr. Melina Agosto Primary Care Provider Dr. Melina gAosto Attending Provider [phone] Dr. Melina Agosto Referring Provider [phone] Dr. Ted Fry Chi Referring Provider Maria Esther BROWN, [place] Aviva Swann Attending Provider Dr. Melina Agosto Primary Care Provider Dr. Melina Agosto Attending Provider [phone] Dr. Melina Agosto Primary Care Provider Dr. Melina Agosto Attending Provider [phone] Dr. Melina Agosto Referring Provider [phone] Dr. German Richardson Attending Provider Dr. Melina Agosto Primary Care Provider Dr. Melina Agosto Referring Provider [phone] Stewart Bob Attending Provider Dr. Melina Agosto Attending Provider Dr. Melina Agosto Primary Care Provider Dr. Melina Agosto Primary Care Provider Dr. Melina Agosto Attending Provider [phone] Surendra SHAIKH, Dr. Summers Primary Care Provider Surendra SHAIKH, Dr. Summers Attending Provider Surendra SHAIKH, Dr. Summers Referring Provider Luz Marina SHAIKH, Dr. Gonzalez Attending Provider Luz Marina SHAIKH, Dr. Gonzalez Referring Provider Referred, Self Attending Provider Unavailable Referred, Self Referring Provider Unavailable Aviva Peralta Attending Provider [phone] Sierra SALESPERSON ART OBJECTS-C, Penny Attending Provider Surendra, Melina Primary Care Unavailable Ludwig Mann Attending Unavailabl e Surendra, Melina Primary Care Unavailable Lenore Carmen Attending Unavailable Surendra, Melina Primary Care Unavailable Esquivel SALESPERSON ART OBJECTS, Penny Attending Unavailable Esquivel SALESPERSON ART OBJECTS, Penny Referring Unavailable Surenrda, Melina Primary Care Unavailable Surendra, Melina Attending Unavailable Surendra, Melina Referring Unavailable Surendra, Melina Primary Care Unavailable Referred, Self Attending Unavailable Referred, Self Referring Unavailable Surendra, Melina Primary Care Unavailable Luz Marina, Carlos Attending Unavailable Luz Marina, [place] Referring Unavailable Luz Marina, [place] Referring Unavailable Surendra, Melina Primary Care Unavailable Luz Marina, [place] Attending Unavailable Surendra, Melina Referring Unavailable Surendra, Melina Primary Care Unavailable Esquivel SALESPERSON ART OBJECTS, Penny Attending Unavailable Surendra, Melina Referring Unavailable Surendra, Melina Primary Care Unavailable Aviva Peralta Attending Unavail able Surendra, Melina Primary Care Unavailable Esquivel SALESPERSON ART OBJECTS, Penny Referring Unavailable Esquivel SALESPERSON ART OBJECTS, Penny Attending Unavailable Surendra, Melina Primary Care Unavailable Luz Marina, [place] Attending Unavailable Luz Marina, [place] Referring Unavailable Luz Marina, Carlos Attending Unavailable Surendra, Melina Primary Care Unavailable Aviva Peralta Consulting Unavail able Nagajothi, [place] Admitting Unavailabl e Luz Marina, Carlos Referring Unavailable Surendra, Melina Primary Care Unavailable Surendra, Melina Attending Unavailable Surendra, Melina Primary Care Unavailable Aviva Peralta Referring Unavail able Aviva Peralta Attending Unavail able Surendra, Melina Primary Care Unavailable Luz Marnia, Carlos Attending Unavailable Luz Marina, [place] Referring Unavailable Surendra, Melina Attending Unavailable Surendra, Melina Primary Care Unavailable Surendra, Melina Referring Unavailable Surendra, Melina Primary Care Unavailable Sierra SALESPERSON ART OBJECTS, Penny Attending Unavailable Surendra, Melina Referring Unavailable Surendra, Melina Primary Care Unavailable Aviva Peralta Attending Unavail able Surendra, Melina Attending Unavailable Surendra, Melina Primary Care Unavailable Surendra, Melina Referring Unavailable Surendra, Melina Attending Unavailable Surendra, Melina Primary Care Unavailable Luz Marina, Carlos Referring Unavailable Surendra, Melina Primary Care Unavailable Luz Marina, [place] Attending Unavailable Luz Marina, [place] Attending Unavailable Surendra, Melina Primary Care Unavailable Luz Marina, [place] Referring Unavailable Surendra, Melina Primary Care Unavailable Sierra SALESPERSON ART OBJECTS, Penny Referring Unavailable Sierra SALESPERSON ART OBJECTS, Penny Attending Unavailable Surendra, Melina Primary Care Unavailable Stewart Bob Attending Unavailable Stewart Bob Referring Unavailable Surendra, Melina Primary Care Unavailable Aviva Peralta Attending Unavail able Aviva Peralta Referring Unavail able Surendra, Melina Referring Unavailable Surendra, Melina Primary Care Unavailable Aviva Peralta Attending Unavail able Surendra, Melina Referring Unavailable Surendra, Melina Primary Care Unavailable Sierra SALESPERSON ART OBJECTSPenny Attending Unavailable Luz Marina, Carlos Attending Unavailable Surendra, Melina Primary Care Unavailable Aviva Peralta Consulting Unavail able Aviva Peralta Referring Unavail able Surendra, Melina Primary Care Unavailable Aviva Peralta Consulting Unavail able Luz Marina, [place] Attending Unavailable Nagajothi, [place] Admitting Unavailabl e Luz Marina, Carlos Referring Unavailable Luz Marina, [place] Consulting Unavailable Surendra, Melina Primary Care Unavailable Codey Cancino Attending Unavailable Sierra ANDREWPenny Referring Unavailable Seirra ANDREW, Penny Consulting Unavailable Codey Cancino Attending Unavailable Melina Agosto Primary Care Unavailable Carlos Raza Attending Unavailable Allergies Allergy Classification Reported Allergen(s) Allergy Type Date of Onset Reaction(s) Facility (5 sources) atorvastatin drug allergy 6 [facility] Work Phone: (8 sources) Egg drug allergy 6 Other-water blisters [facility] Work Phone: (5 sources) penicillin drug allergy 6 [facility] Work Phone: (5 sources) rosuvastatin drug allergy 6 CP [facility] Work Phone: (5 sources) simvastatin drug allergy 6 [facility] Work Phone: (16 sources) vancomycin; 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: [vancomycin] drug allergy 6 Other-htn [facility] Work Phone: (5 sources) DEFINITY drug allergy 6 Severe lower back muscle spasms [facility] Work Phone: (16 sources) PERFUME; 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: [perfume] drug allergy 6 Other-triggers asthma attack [facility] Work Phone: (10 sources) atorvastatin Drug Allergy 2 Other-myalgias [facility] (10 sources) DOBUTamine Drug Allergy 2 Other-muscle spasm [facility] (10 sources) fluticasone Drug Allergy 2 Other-nosebleed [facility] (11 sources) Penicillins; 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: [Penicillins] Allergy to substance 2 Anaphylaxis [facility] (10 sources) Perflutren Drug Allergy 2 Unknown [facility] (10 sources) rosuvastatin Drug Allergy 2 Other-myalgias [facility] (10 sources) Simvastatin Drug Allergy 2 Other-myalgias [facility] (7 sources) egg extract Drug Allergy 3 WATER BLISTERS [facility] (1 source) atorvastatin Drug Allergy 5 [facility] (1 source) DOBUTamine Drug Allergy 5 [facility] (1 source) egg extract Drug Allergy 5 [facility] (1 source) fluticasone Drug Allergy 5 [facility] (1 source) Perflutren Drug Allergy 5 [facility] (1 source) rosuvastatin Drug Allergy 5 [facility] (1 source) Simvastatin Drug Allergy 5 [facility] Repository Medications Current Medications Medication Drug Class(es) Dates Sig (Normalized) Sig (Original) aspirin 81 mg delayed release oral tablet (20 sources) Nonsteroidal Anti-inflammatory Drug Start: 08-05-2024 Aspirin (Adult Low Dose Aspirin) 81 mg tablet,delayed release (DR/EC) Active 81 mg PO daily August 05, 2024 1:00am Start: 09-20-2016 End: 03-30-2021 take 1 tablet by mouth once daily Aspirin 81 mg tablet,delayed release (DR/EC) Discontinued 81 mg PO DAILY October 27, 2020 4:59pm March 30, 2021 1:57pm Blood-Glucose Meter misc (1 source) Start: 09-14-2024 Blood-Glucose Meter misc Active 0 .Route 1 September 14, 2024 1:00am As directed May substitute for covered alternative butter balm (10 sources) Start: 08-03-2021 butter balm Ac tive TOPICAL August 03, 2021 9:37am Start: 08-03-2021 butter balm Ac tive 1 NMA TOPICAL DAILY as needed for rough spots August 03, 2021 1:00am Start: 08-03-2021 butter balm Ac tive 1 APPLIC TOPICAL DAILY August 03, 2021 12:00am Start: 08-03-2021 butter balm Ac tive 1 APPLIC TOPICAL DAILY August 03, 2021 1:00am Start: 08-03-2021 butter balm Ac tive TOPICAL August 03, 2021 1:00am calcium carbonate 500 mg chewable tablet (20 sources) Start: 06-05-2021 take 1 tablet by mouth twice daily as needed Calcium Carbonate (Tums) 200 mg calcium (500 mg) tablet,chewable Active 200 mg PO TWICE A DAY as needed for supplement June 05, 2021 12:00am Start: 06-02-2021 End: 06-05-2021 take 1 tablet by mouth once daily as needed Calcium Carbonate (Tums 500) 500 mg calcium (1,250 mg) Tablet,Chewable Discontinued 500 mg PO DAILY as needed for Indigestion June 02, 2021 12:00am June 05, 2021 10:52am Start: 09-25-2019 End: 03-30-2021 take 1 tablet by mouth twice daily as needed Calcium Carbonate (Tums) 300 mg (750 mg) tablet,chewable Discontinued 600 mg PO TWICE A DAY as needed September 25, 2019 1:00am March 30, 2021 1:57pm Start: 07-25-2016 End: 07-31-2016 TUMS 500 MG CHEW as directed CALCIUM CARBONATE ANTACID [id number] Aviva Alberto RN Start: 07-25-2016 End: 07-31-2016 TUMS 500 MG CHEW as directed CALCIUM CARBONATE ANTACID [id number] Aviva Alberto RN cholecalciferol 0.025 mg oral capsule (20 sources) Vitamin D Start: 07-28-2024 take 1 capsule by mouth once daily Cholecalciferol (Vitamin D3) (Vitamin D3) 25 mcg (1,000 unit) capsule Active 2000 U PO DAILY July 28, 2024 1:00am Start: 01-22-2018 End: 03-30-2021 take 2 capsules by mouth once daily Cholecalciferol (Vitamin D3) 2,000 unit capsule Discontinued 4000 U PO DAILY January 22, 2018 8:36am March 30, 2021 1:57pm Start: 01-22-2018 End: 03-30-2021 take 4000 [IU] by mouth once daily Cholecalciferol (Vitamin D3) Discontinued 4000 UNIT PO DAILY January 22, 2018 8:36am March 30, 2021 1:57pm Start: 09-27-2016 End: 01-22-2018 take 1 capsule by mouth once daily Cholecalciferol (Vitamin D3) 2,000 UNIT capsule Discontinued 2000 U PO DAILY September 27, 2016 1:00am January 22, 2018 8:47am Start: 07-25-2016 take 1 tablet by omega th once daily D3 MAXIMUM STRENGTH 5000 UNIT CAPS One tablet by mouth daily CHOLECALCIFEROL [id number] Aviva Alberto RN daily defense (2 sources) Start: 08-03-2021 daily defense Active PO August 03, 2021 9:37am Start: 08-03-2021 daily defense Active PO August 03, 2021 1:00am dutasteride 0.5 mg / tamsulosin hydrochloride 0.4 mg oral capsule (11 sources) alpha-Adrenergic Camelia, 5-alpha Reductase Inhibitor Start: 06-02-2024 Dutasteride-Tamsulosin 0.5-0.4 mg capsule, ER multiphase 24 hr Active 1 NMA PO daily June 02, 2024 12:00am Start: 05-02-2020 End: 06-13-2022 Dutasteride-Tamsulosin 0.5-0 .4 mg capsule, ER multiphase 24 hr Discontinued 1 NMA PO AT BEDTIME May 02, 2020 12:00am June 13, 2022 2:09pm Start: 05-02-2020 End: 06-13-2022 take 1 capsule by mouth at bedtime Dutasteride-Tamsulosin Discontinued 1 CA P PO AT BEDTIME May 02, 2020 12:00am June 13, 2022 2:09pm ezetimibe 10 mg oral tablet (1 source) Dietary Cholesterol Absorption Inhibitor Start: 10-14-2024 take 1 tablet by mouth once daily Ezetimibe (Zetia) 10 mg tablet Active 10 mg PO daily October 14, 2024 1:00am furosemide 40 mg oral tablet (20 sources) Loop Diuretic Start: 06-02-2024 End: 09-04-2024 take 1 tablet by mouth twice daily Furosemide 40 mg tablet Active 40 mg PO TWICE A DAY 180 September 04, 2024 12:11pm Start: 03-09-2024 End: 06-02-2024 take 1 tablet by mouth once daily Furosemide 40 mg tablet Discontinued 40 mg PO .qd March 09, 2024 11:18am June 02, 2024 10:34am Start: 01-18-2023 End: 03-09-2024 take 1 tablet by mouth twice daily Furosemide 40 mg tablet Discontinued 40 mg PO TWICE A DAY 180 November 12, 2023 2:34pm March 09, 2024 11:19am Start: 04-03-2022 End: 01-18-2023 take 1 tablet by mouth once daily Furosemide 40 mg tablet Discontinued 40 mg PO DAILY September 21, 2022 4:05pm January 18, 2023 10:47am Start: 08-28-2019 End: 04-03-2022 take 1 tablet by mouth twice daily Furosemide 40 mg tablet Discontinued 40 mg PO TWICE A DAY 180 March 13, 2022 12:37pm April 03, 2022 10:08am Start: 06-17-2019 End: 08-28-2019 take 1 tablet by mouth once daily Furosemide 40 mg tablet Discontinued 40 mg PO DAILY June 17, 2019 10:29am August 28, 2019 5:16pm Start: 03-27-2019 End: 06-17-2019 take 1 tablet by mouth twice daily Furosemide (Lasix) 40 mg tablet Discontinued 40 mg PO TWICE A DAY 180 March 27, 2019 10:39am June 17, 2019 10:30am Start: 11-01-2017 End: 03-27-2019 take 1 tablet by mouth once daily Furosemide (Lasix) 40 mg tablet Discontinued 40 mg PO daily May 30, 2018 12:53pm March 27, 2019 10:40am Start: 05-06-2017 take 1 tablet by omega th once daily LASIX 40 MG TABS One tablet by mouth daily FUROSEMIDE [id number] Ubaldo Hassan MD hydroCHLOROthiazide 12.5 mg / losartan potassium 50 mg oral tablet (20 sources) Thiazide Diuretic, Angiotensin 2 Receptor Camelia Start: 08-05-2024 End: 11-02-2024 Losartan-Hydrochlorothiazide 50-12.5 mg tablet Active 1 {tbl} PO every other day November 02, 2024 11:57am Start: 04-20-2022 End: 03-09-2024 take 1 tablet by mouth once daily Losartan-Hydrochlorothiazide 50-12.5 mg tablet Discontinued 0 .ROUTE .COMPLEX July 31, 2022 5:27pm March 09, 2024 11:19am take 1 tablet by mouth once daily Start: 03-30-2021 End: 06-20-2021 Losartan-Hydrochlorothiazide 50-12.5 mg tablet Discontinued 1 {tbl} PO AT BEDTIME June 02, 2021 1:28pm June 20, 2021 10:39am Start: 11-03-2020 End: 11-03-2020 take 1 tablet by mouth once daily in the morning Losartan-Hydrochlorothiazide 50-12.5 mg tablet Discontinued {tbl} PO DAILY November 03, 2020 1:00am November 03, 2020 11:14am In addition to the 50 mg in the AM Start: 09-25-2019 End: 04-26-2020 take 1 tablet by mouth once daily in the evening Losartan-Hydrochlorothiazide 50-12.5 mg tablet Discontinued 1 {tbl} PO .COMPLEX February 01, 2020 12:58pm April 26, 2020 10:21am 1 tab PO every evening: takes losartan plain 50 mg in the am; Start: 01-22-2018 End: 04-30-2019 Losartan-Hydrochlorothiazide 50-12.5 mg tablet Discontinued 1 {tbl} PO DAILY December 16, 2018 12:04pm April 30, 2019 3:04pm Start: 07-31-2016 End: 11-01-2017 Losartan-Hydrochlorothiazide 1 TAB tablet Discontinued 1 {tbl} PO DAILY September 27, 2016 1:00am November 01, 2017 1:34pm Start: 07-31-2016 take 1 tablet by omega th once daily HYZAAR 50-12.5 MG TABS One tablet by omega th daily LOSARTAN POTASSIUM-HCTZ [id number] Ubaldo Hassan MD Start: 07-31-2016 End: 11-01-2016 take 1 tablet by mouth once daily HYZAAR 50-12.5 MG TABS One tablet by omega th daily LOSARTAN POTASSIUM-HCTZ [id number] Ubaldo Hassan MD ibuprofen 600 mg oral tablet (20 sources) Nonsteroidal Anti-inflammatory Drug Start: 04-27-2022 take 1 tablet by mouth every six hours as needed for pain Ibuprofen 600 mg tablet Active 600 mg PO EVERY 6 HOURS as needed for fever or pain April 27, 2022 12:00am Start: 01-22-2018 End: 01-23-2023 take 2 capsules by mouth three to four times daily as needed for pain Ibuprofen 200 mg capsule Discontinued 400 mg PO 3 to 4 times per day as needed for Pain January 22, 2018 12:00am January 23, 2023 11:21am Start: 01-22-2018 End: 01-23-2023 take 400 mg by mouth three to four times daily Ibuprofen Discontinued 400 MG PO 3 to 4 times per day January 22, 2018 12:00am January 23, 2023 11:21am Start: 07-25-2016 IBUPROFEN 200 MG TABS as directed IBUPROFEN [id number] Aviva Alberto RN metroNIDAZOLE 250 mg oral tablet (2 sources) Nitroimidazole Antimicrobial Start: 08-03-2021 take 250 mg by mouth every eight hours Metronidazole Active 250 MG PO Q8H August 03, 2021 10:03am 24 hr oxybutynin chloride 10 mg extended release oral tablet (20 sources) Cholinergic Muscarinic Antagonist Start: 02-04-2022 End: 11-30-2024 take 1 tablet by mouth once daily Oxybutynin Chloride 10 mg tablet extended release 24hr Active 10 mg PO DAILY November 30, 2024 9:14am Start: 06-02-2021 End: 06-09-2021 take 1 tablet by mouth once daily Oxybutynin Chloride 10 mg Tablet Extended Release 24hr Discontinued 10 mg PO DAILY June 02, 2021 12:00am June 09, 2021 2:20pm Start: 04-26-2020 End: 03-30-2021 take 1 tablet by mouth once daily Oxybutynin Chloride 10 mg tablet extended release 24hr Discontinued 10 mg PO DAILY April 26, 2020 12:00am March 30, 2021 1:58pm polyethylene glycol 3350 61346 mg powder for oral solution (20 sources) Osmotic Laxative Start: 06-02-2021 Polyethylene Glycol 3350 (Miralax) 17 gram Powder In Packet Active 17 g PO DAILY June 02, 2021 12:00am Start: 01-22-2018 End: 05-02-2020 Polyethylene Glycol 3350 (Mi ralax) 17 gram/dose powder Discontinued 17 g PO daily January 22, 2018 12:00am May 02, 2020 10:14am ticagrelor 90 mg oral tablet (2 sources) Start: 07-29-2024 End: 08-31-2024 take 1 tablet by mouth twice daily Ticagrelor (Brilinta) 90 mg tablet Active 90 mg PO TWICE A DAY August 31, 2024 10:09am triamcinolone acetonide 1 mg/ml topical cream (2 sources) Corticosteroid Start: 10-24-2021 Triamcinolone Acetonide Active 1 APPLIC TOPICAL TWICE A DAY October 24, 2021 11:35am vitamin b12 1 mg oral tablet (18 sources) Vitamin B12 Start: 07-28-2024 End: 09-04-2024 take 1 tablet by mouth once daily Cyanocobalamin (Vitamin B-12) 1,000 mcg tablet Active 1000 ug PO DAILY September 04, 2024 12:11pm Start: 03-09-2024 End: 08-05-2024 take 1 capsule by mouth once daily Cyanocobalamin (Vitamin B-12) 1,000 mcg capsule Discontinued 1000 ug PO DAILY March 09, 2024 12:00am August 05, 2024 10:46am Start: 09-27-2016 End: 09-25-2019 take 1 tablet by mouth once daily Cyanocobalamin (Vitamin B-12) 1,000 MCG tablet Discontinued 1000 ug PO DAILY September 27, 2016 1:00am September 25, 2019 11:14am Start: 07-25-2016 take 1 tablet by omega th once daily [facility] B-12 1000 MCG CR-TABS One tablet by mouth daily CYANOCOBALAMIN [id number] Aviva Alberto RN Completed/Discontinued Medications Medication Drug Class(es) Dates Sig (Normalized) Sig (Original) acetaminophen 325 mg / oxyCODONE hydrochloride 5 mg oral tablet (10 sources) Opioid Agonist Start: 06-09-2021 End: 08-03-2021 Oxycodone-Acetamino phen 5-325 mg tablet Discontinued 1 {tbl} PO EVERY 6 HOURS as needed for pain 06 22June 09, 2021 August 03, 2021 9:38am Start: 06-09-2021 End: 08-03-2021 take 1 tablet by mouth every six hours Oxycodone-Acetaminophen Discontinued 1 TABLET PO EVERY 6 HOURS 06 22June 09, 2021 August 03, 2021 9:38am albuterol 0.83 mg/ml inhalation solution (20 sources) beta2-Adrenergic Agonist Start: 01-29-2023 End: 03-09-2024 take 2.5 mg by inhalation every four hours as needed for wheezing Albuterol Sulfate 2.5 mg /3 mL (0.083 %) solution for nebulization Discontinued 2.5 mg INHALATION Q4H as needed for Sob &/Or Wheezing 180 January 29, 2023 12:00am March 09, 2024 11:18am Start: 04-20-2022 End: 01-23-2023 Albuterol Sulfate (Proair Hf a) 90 mcg/actuation Hfa Aerosol Inhaler Discontinued 2 NMA INHALATION EVERY 6 HOURS as needed for SOB April 20, 2022 12:00am January 23, 2023 11:20am Start: 04-20-2022 End: 01-23-2023 take 1 puff(s) by inhalation every six hours Albuterol Sulfate (Proair Hfa) 90 mcg/actuation Hfa Aerosol Inhaler Discontinued 2 PUFF INHALATION EVERY 6 HOURS April 20, 2022 12:00am January 23, 2023 11:20am Start: 10-19-2019 End: 06-05-2022 Albuterol Sulfate (Proair Hf a) 90 mcg/actuation HFA aerosol inhaler Active 2 NMA INHALATION Q4H as needed for shortness of breath or wheezing June 05, 2022 10:41am Start: 10-19-2019 End: 06-05-2022 take 1 puff(s) by inhalation every four hours Albuterol Sulfate (Proair Hfa) 90 mcg/actuation HFA aerosol inhaler Discontinued 2 PUFF INHALATION Q4H April 26, 2020 10:24am June 05, 2022 10:41am Start: 11-04-2018 End: 04-26-2020 take 2.5 mg by inhalation every four hours as needed for wheezing Albuterol Sulfate 2.5 mg /3 mL (0.083 %) solution for nebulization Discontinued 2.5 mg INHALATION Q4H as needed for Sob &/Or Wheezing 180 November 07, 2018 2:34pm April 26, 2020 10:25am Start: 04-30-2018 End: 10-19-2019 Albuterol Sulfate (Proair Hf a) 90 mcg/actuation HFA aerosol inhaler Discontinued 2 NMA INHALATION Q4H as needed for shortness of breath or wheezing April 30, 2018 4:24pm October 19, 2019 11:32am Start: 04-30-2018 End: 10-19-2019 take 1 puff(s) by inhalation every four hours Albuterol Sulfate (Proair Hfa) 90 mcg/actuation HFA aerosol inhaler Discontinued 2 PUFF INHALATION Q4H 18 April 30, 2018 4:24pm October 19, 2019 11:32am Start: 04-30-2018 End: 04-30-2018 Albuterol Sulfate (Proair Hf a) 90 mcg/actuation HFA aerosol inhaler Discontinued 2 NMA INHALATION Q4H as needed April 30, 2018 12:00am April 30, 2018 4:25pm Start: 04-30-2018 End: 04-30-2018 take 1 puff(s) by inhalation every four hours Albuterol Sulfate (Proair Hfa) 90 mcg/actuation HFA aerosol inhaler Discontinued 2 PUFF INHALATION Q4H April 30, 2018 12:00am April 30, 2018 4:25pm Start: 01-22-2018 End: 04-29-2018 take 2.5 mg by inhalation four times daily Albuterol Sulfate 2.5 mg /3 mL (0.083 %) solution for nebulization Discontinued 2.5 mg INHALATION .qid January 22, 2018 12:00am April 29, 2018 12:48pm Start: 09-27-2016 End: 04-29-2018 Albuterol Sulfate 1 PUFF inh aler Discontinued 1 - 2 NMA INHALATION EVERY 4 HOURS NEEDED as needed for breathing September 27, 2016 1:00am April 29, 2018 12:48pm Start: 09-27-2016 End: 04-29-2018 take 1 puff(s) by inhalation every four hours as needed Albuterol Sulfate Discontinued 1 - 2 PUFF INHALATION EVERY 4 HOURS NEEDED September 27, 2016 1:00am April 29, 2018 12:48pm Start: 07-25-2016 PROAIR HFA 108 (90 Base) MCG/ACT AERS As Directed ALBUTEROL SULFATE [id number] Aviva Alberto RN Start: 07-25-2016 PROAIR HFA 108 (90 Base) MCG/ACT AERS As Directed ALBUTEROL SULFATE [id number] Aviva Alberto RN albuterol 0.833 mg/ml / ipratropium bromide 0.167 mg/ml inhalation solution (15 sources) Anticholinergic, beta2-Adrenergic Agonist Start: 09-27-2016 End: 01-22-2018 take 1 mL by inhalation every six hours Ipratropium-Albuterol 3 ML solution for nebulization Discontinued 3 mL INHALATION EVERY 6 HOURS September 27, 2016 1:00am January 22, 2018 8:46am Start: 09-27-2016 End: 01-22-2018 take 1 mL by inhalation every six hours Ipratropium-Albuterol Discontinued 3 ML INHALATION EVERY 6 HOURS September 27, 2016 1:00am January 22, 2018 8:46am Start: 07-25-2016 IPRATROPIUM-AL BUTEROL 0.5-2.5 (3) MG/3ML SOLN As directed IPRATROPIUM-ALBUTEROL [id number] Aviva Alberto RN armodafinil 150 mg oral tablet (10 sources) Start: 11-03-2020 End: 03-30-2021 take 1 tablet by mouth once daily in the morning Armodafinil 150 mg tablet Discontinued 150 mg PO EVERY MORNING November 03, 2020 1:00am March 30, 2021 1:57pm calcium carb 333 mg-vit D3 133 unit-mag ox 133 mg-zinc oxide 5 mg tab (10 sources) Vitamin D Start: 09-25-2019 End: 03-30-2021 calcium carb 333 mg-vit D3 133 unit-mag ox 133 mg-zinc oxide 5 mg tab Discontinued TABLET PO September 25, 2019 11:15am March 30, 2021 1:57pm Start: 09-25-2019 End: 03-30-2021 Calcium Carb-D3-Mag Ox-Zinc Ox (Joe Mag Zinc Plus D3) 333 mg- 133 unit -133 mg-5 mg tablet Discontinued {tbl} PO September 25, 2019 1:00am March 30, 2021 1:57pm Start: 09-25-2019 End: 03-30-2021 calcium carb 333 mg-vit D3 1 33 unit-mag ox 133 mg-zinc oxide 5 mg tab Discontinued TABLET PO September 25, 2019 12:00am March 30, 2021 12:57pm Start: 09-25-2019 End: 03-30-2021 calcium carb 333 mg-vit D3 1 33 unit-mag ox 133 mg-zinc oxide 5 mg tab Discontinued TABLET PO September 25, 2019 1:00am March 30, 2021 1:57pm ciprofloxacin 500 mg oral tablet (20 sources) Quinolone Antimicrobial Start: 04-27-2022 End: 01-18-2023 take 1 tablet by mouth twice daily Ciprofloxacin Hcl (Cipro) 500 mg tablet Discontinued 500 mg PO TWICE A DAY April 27, 2022 12:00am January 18, 2023 10:44am Start: 06-09-2021 End: 10-24-2021 take 1 tablet by mouth twice daily Ciprofloxacin Hcl 500 mg tablet Discontinued 500 mg PO TWICE A DAY August 03, 2021 1:00am October 24, 2021 11:12am clopidogrel 75 mg oral tablet (20 sources) [id number] Platelet Inhibitor Start: 09-20-2016 End: 11-01-2017 take 1 tablet by mouth once daily Clopidogrel 75 MG tablet Discontinued 75 mg PO DAILY September 27, 2016 1:00am November 01, 2017 1:35pm colesevelam hydrochloride 625 mg oral tablet (10 sources) Bile Acid Sequestrant Start: 07-25-2016 End: 07-31-2016 take 3 tablets by mouth twice daily WELCHOL 625 MG TABS Three tablets by mouth twice a day COLESEVELAM HCL [id number] Ashley Livingston RN Disability Placard (20 sources) Start: 01-10-2021 End: 01-11-2022 Disability Placard Discontinued 0 .Route .MEDSUPPLY January 10, 2021 11:57am January 10, 2022 12:00am January 11, 2022 12:04am Expires 01/10/2022 Start: 01-10-2021 End: 01-11-2022 Disability Placard Discontin ued 0 .Route .MEDSUPPLY January 10, 2021 10:57am January 10, 2022 11:04pm Expires 01/10/2022 Start: 01-10-2021 End: 01-11-2022 Disability Placard Discontin ued 0 .Route .MEDSUPPLY January 10, 2021 11:57am January 11, 2022 12:04am Expires 01/10/2022 Start: 01-10-2021 Disability [place] card Active 0 .Route .MEDSUPPLY January 10, 2021 11:57am Expires 01/10/2022 Start: 12-30-2020 End: 01-10-2021 Disability Placard Discontin ued 0 .Route .MEDSUPPLY 1 December 30, 2020 3:11pm December 30, 2025 12:00am January 10, 2021 11:58am As directed Start: 12-30-2020 End: 01-10-2021 Disability Placard Discontin ued 0 .Route .MEDSUPPLY 1 December 30, 2020 2:11pm January 10, 2021 10:58am As directed Start: 12-30-2020 End: 01-10-2021 Disability Placard Discontin ued 0 .Route .MEDSUPPLY 1 December 30, 2020 3:11pm January 10, 2021 11:58am As directed Start: 11-28-2020 End: 12-30-2020 Disability Placard Discontin ued 0 .Route .MEDSUPPLY 1 November 28, 2020 2:08pm December 30, 2020 2:12pm As directed Start: 11-28-2020 End: 12-30-2020 Disability Placard Discontin ued 0 .Route .MEDSUPPLY 1 November 28, 2020 3:08pm December 30, 2020 3:12pm As directed Start: 11-28-2020 End: 11-28-2020 Disability Placard Discontin ued 0 .Route .MEDSUPPLY 1 November 28, 2020 3:06pm November 28, 2020 3:08pm As directed Start: 11-28-2020 End: 11-28-2020 Disability Placard Discontin ued 0 .Route .MEDSUPPLY 1 November 28, 2020 12:00am November 22, 2021 1:00am November 28, 2020 3:08pm As directed Start: 11-28-2020 End: 11-28-2020 Disability Placard Discontin ued 0 .Route .MEDSUPPLY 1 November 27, 2020 11:00pm November 28, 2020 2:08pm As directed Start: 11-28-2020 End: 11-28-2020 Disability Placard Discontin ued 0 .Route .MEDSUPPLY 1 November 28, 2020 12:00am November 28, 2020 3:08pm As directed ergocalciferol 62550 unt oral tablet (10 sources) Provitamin D2 Compound Start: 07-25-2016 End: 07-31-2016 take 1 tablet by mouth two times weekly VITAMIN D (ERGOCALCIFEROL) 09247 UNIT CAPS One tablet by mouth twice weekly ERGOCALCIFEROL [id number] Aviva Alberto RN Start: 07-25-2016 End: 07-31-2016 take 1 tablet by mouth two times weekly VITAMIN D (ERGOCALCIFEROL) 86672 UNIT CAPS One tablet by mouth twice weekly ERGOCALCIFEROL [id number] Aviva Alberto RN Fluad Quad [id number](65yr up)(PF) 60 mcg (15 mcg x 4)/0.5mL IM syringe (flu vac (1 source) Start: 06-05-2021 End: 06-05-2021 Fluad Quad (65yr up)(PF) 60 mcg (15 mcg x 4)/0.5mL IM syringe (flu vac Discontinued 60 MCG IM ONCE 0.5 June 05, 2021 10:40am June 05, 2021 11:31am fluticasone propionate 0.05 mg/actuat metered dose nasal spray (10 sources) Corticosteroid Start: 07-25-2016 End: 07-31-2016 FLUTICASONE PROPIONATE 50 MCG/ACT SUSP (0.05mg/inh) 1 spray each nostril once a day FLUTICASONE PROPIONATE [id number] Aviva Alberto RN Start: 07-25-2016 End: 07-31-2016 take 0.05 mg by inhalation once daily FLUTICASONE PROPIONATE 50 MCG/ACT SUSP (0.05mg/inh) 1 spray each nostril once a day FLUTICASONE PROPIONATE [id number] Aviva Alberto RN Fluticasone Propion-Salmeterol (20 sources) Corticosteroid, beta2-Adrenergic Agonist Start: 04-26-2020 End: 10-10-2020 Fluticasone Propion-Salmeterol (Advair Diskus) 500-50 mcg/dose blister with device Discontinued 1 INH INHALATION Q12H 60 April 26, 2020 10:18am October 10, 2020 9:30am Start: 04-26-2020 End: 10-10-2020 Fluticasone Propion-Salmeter ol (Advair Diskus) 500-50 mcg/dose blister with device Discontinued 1 NMA INHALATION Q12H 60 April 26, 2020 12:00am October 10, 2020 9:30am Start: 04-26-2020 End: 10-10-2020 Fluticasone Propion-Salmeter ol (Advair Diskus) 500-50 mcg/dose blister with device Discontinued 1 INH INHALATION Q12H 60 April 25, 2020 11:00pm October 10, 2020 8:30am Start: 04-26-2020 End: 10-10-2020 Fluticasone Propion-Salmeter ol (Advair Diskus) 500-50 mcg/dose blister with device Discontinued 1 INH INHALATION Q12H 60 April 26, 2020 12:00am October 10, 2020 9:30am Start: 11-07-2018 End: 04-26-2020 Fluticasone Propion-Salmeter ol (Advair Diskus) 250-50 mcg/dose blister with device Discontinued 1 NMA INHALATION TWICE A DAY 60 November 07, 2018 2:32pm April 26, 2020 10:18am Start: 11-07-2018 End: 04-26-2020 Fluticasone Propion-Salmeter ol (Advair Diskus) 250-50 mcg/dose blister with device Discontinued 1 INH INHALATION TWICE A DAY 60 November 07, 2018 1:32pm April 26, 2020 9:18am Start: 11-07-2018 End: 04-26-2020 Fluticasone Propion-Salmeter ol (Advair Diskus) 250-50 mcg/dose blister with device Discontinued 1 INH INHALATION TWICE A DAY 60 November 07, 2018 2:32pm April 26, 2020 10:18am Start: 11-04-2018 End: 11-07-2018 Fluticasone Propion-Salmeter ol (Advair Diskus) 250-50 mcg/dose blister with device Discontinued 1 NMA INHALATION TWICE A DAY 60 November 04, 2018 11:20am November 07, 2018 2:35pm Start: 11-04-2018 End: 11-07-2018 Fluticasone Propion-Salmeter ol (Advair Diskus) 250-50 mcg/dose blister with device Discontinued 1 INH INHALATION TWICE A DAY 60 November 04, 2018 10:20am November 07, 2018 1:35pm Start: 11-04-2018 End: 11-07-2018 Fluticasone Propion-Salmeter ol (Advair Diskus) 250-50 mcg/dose blister with device Discontinued 1 INH INHALATION TWICE A DAY 60 November 04, 2018 11:20am November 07, 2018 2:35pm Start: 08-04-2018 End: 11-04-2018 Fluticasone Propion-Salmeter ol (Advair Diskus) 250-50 mcg/dose blister with device Discontinued 1 INH INHALATION TWICE A DAY August 04, 2018 11:07am November 04, 2018 11:22am Start: 08-04-2018 End: 11-04-2018 Fluticasone Propion-Salmeter ol (Advair Diskus) 250-50 mcg/dose blister with device Discontinued 1 NMA INHALATION TWICE A DAY August 04, 2018 1:00am November 04, 2018 11:22am Start: 08-04-2018 End: 11-04-2018 Fluticasone Propion-Salmeter ol (Advair Diskus) 250-50 mcg/dose blister with device Discontinued 1 INH INHALATION TWICE A DAY August 04, 2018 12:00am November 04, 2018 10:22am Start: 08-04-2018 End: 11-04-2018 Fluticasone Propion-Salmeter ol (Advair Diskus) 250-50 mcg/dose blister with device Discontinued 1 INH INHALATION TWICE A DAY August 04, 2018 1:00am November 04, 2018 11:22am Start: 04-29-2018 End: 05-12-2018 Fluticasone Propion-Salmeter ol (Airduo Respiclick) 113-14 mcg/actuation aerosol powdr breath activated Discontinued 1 NMA INHALATION Q12H 1 April 29, 2018 12:00am May 12, 2018 3:28pm Start: 04-29-2018 End: 05-12-2018 take 1 puff(s) by inhalation every twelve hours Fluticasone Propion-Salmeterol (Airduo Respiclick) 113-14 mcg/actuation aerosol powdr breath activated Discontinued 1 PUFF INHALATION Q12H 1 April 29, 2018 12:00am May 12, 2018 3:28pm Start: 11-04-2017 End: 04-29-2018 Fluticasone Propion-Salmeter ol (Advair Diskus) 250-50 mcg/dose blister with device Discontinued 1 INH INHALATION Q12H November 04, 2017 3:25pm April 29, 2018 12:48pm Start: 11-04-2017 End: 04-29-2018 Fluticasone Propion-Salmeter ol (Advair Diskus) 250-50 mcg/dose blister with device Discontinued 1 NMA INHALATION Q12H November 04, 2017 1:00am April 29, 2018 12:48pm Start: 11-04-2017 End: 04-29-2018 Fluticasone Propion-Salmeter ol (Advair Diskus) 250-50 mcg/dose blister with device Discontinued 1 INH INHALATION Q12H November 04, 2017 12:00am April 29, 2018 11:48am Start: 11-04-2017 End: 04-29-2018 Fluticasone Propion-Salmeter ol (Advair Diskus) 250-50 mcg/dose blister with device Discontinued 1 INH INHALATION Q12H November 04, 2017 1:00am April 29, 2018 12:48pm Start: 07-25-2016 End: 07-31-2016 ADVAIR DISKUS 100-50 MCG/DOS E AEPB Take as Directed FLUTICASONE-SALMETEROL [id number] Aviva Alberto RN Start: 07-25-2016 End: 07-31-2016 ADVAIR DISKUS 100-50 MCG/DOS E AEPB Take as Directed FLUTICASONE-SALMETEROL [id number] Ashley Livingston RN Start: 07-25-2016 ADVAIR DISKUS 100-50 MCG/DOSE AEPB Take as Directed FLUTICASONE-SALMETEROL [id number] Aviva Alberto RN Garlic (15 sources) Non-Standardized Food Allergenic Extract Start: 09-27-2016 End: 05-02-2020 take 400 mg by mouth once daily Garlic Discontinued 400 MG PO DAILY September 27, 2016 3:16pm May 02, 2020 10:14am Start: 09-27-2016 End: 05-02-2020 take 1 tablet by mouth once daily Garlic 400 MG tablet Discontinued 400 mg PO DAILY September 27, 2016 1:00am May 02, 2020 10:14am Start: 09-27-2016 End: 05-02-2020 take 400 mg by mouth once daily Garlic Discontinued 40 0 MG PO DAILY September 27, 2016 12:00am May 02, 2020 9:14am Start: 09-27-2016 End: 05-02-2020 take 400 mg by mouth once daily Garlic Discontinued 40 0 MG PO DAILY September 27, 2016 1:00am May 02, 2020 10:14am Start: 07-31-2016 take 1 tablet by omega th once daily GARLIC 400 MG TABS One tablet by mouth daily GARLIC-CALCIUM [id number] Ashley Livingston RN gemfibrozil 600 mg oral tablet (20 sources) Peroxisome Proliferator Receptor alpha Agonist Start: 05-02-2020 End: 03-30-2021 take 1200 mg by mouth twice daily Gemfibrozil Discontinued 1200 MG PO TWICE A DAY 120 May 02, 2020 10:26am March 30, 2021 1:55pm Start: 10-05-2019 End: 03-30-2021 take 1 tablet by mouth twice daily Gemfibrozil 600 mg tablet Discontinued 1200 mg PO TWICE A DAY 120 May 02, 2020 10:26am March 30, 2021 1:55pm Start: 07-25-2016 End: 11-01-2017 take 1 tablet by mouth twice daily before mealtime Gemfibrozil 600 MG tablet Discontinued 600 mg PO TWICE DAILY BEFORE MEALS September 27, 2016 1:00am November 01, 2017 1:36pm Yael Root-Pyridoxine Hcl(B 6) (9 sources) Start: 09-25-2019 End: 05-02-2020 Yael Root-Pyridoxine Hcl(B 6) Discontinued CAP PO September 25, 2019 11:16am May 02, 2020 10:14am Start: 09-25-2019 End: 05-02-2020 Yael Root-Pyridoxine Hcl(B 6) Discontinued CAP PO September 25, 2019 12:00am May 02, 2020 9:14am Start: 09-25-2019 End: 05-02-2020 Yael Root-Pyridoxine Hcl(B 6) Discontinued CAP PO September 25, 2019 1:00am May 02, 2020 10:14am Yael Root-Pyridoxine Hcl(B6) 325-25 mg capsule (1 source) Start: 09-25-2019 End: 05-02-2020 Yael Root-Pyridoxine Hcl(B6) 325-25 mg capsule Discontinued NMA PO September 25, 2019 1:00am May 02, 2020 10:14am hydroCHLOROthiazide 12.5 mg oral tablet (20 sources) Thiazide Diuretic Start: 04-30-2019 End: 03-30-2021 take 1 tablet by mouth once daily Hydrochlorothiazide 12.5 mg tablet Discontinued 12.5 mg PO DAILY 90 September 27, 2020 12:34pm March 30, 2021 1:53pm Start: 11-01-2016 End: 05-06-2017 take 1 tablet by mouth once daily HYDROCHLOROTHIAZIDE 25 MG TABS One tablet by mouth daily HYDROCHLOROTHIAZIDE [id number] Ubaldo Hassan MD krill oil (5 sources) Start: 07-25-2016 take 1 tablet by mouth once daily [facility] OMEGA-3 KRILL OIL CAPS One tablet by mouth daily KRILL OIL CAPS [id number] Aviva Alberto RN Krill Fdw-Belqf-9-Dha-Epa (9 sources) Start: 09-27-2016 End: 05-02-2020 Krill Bbt-Zpxsl-1-Dha-Epa Discontinued 1 EACH PO DAILY September 27, 2016 3:16pm May 02, 2020 10:14am Start: 09-27-2016 End: 05-02-2020 Krill Rtr-Wgslj-2-Dha-Epa Di scontinued 1 EACH PO DAILY September 27, 2016 12:00am May 02, 2020 9:14am Start: 09-27-2016 End: 05-02-2020 Krill Svt-Ytxse-1-Dha-Epa Di scontinued 1 EACH PO DAILY September 27, 2016 1:00am May 02, 2020 10:14am Krill Tyc-Nljqx-6-Dha-Epa 1 EACH capsule (1 source) Start: 09-27-2016 End: 05-02-2020 take 1 capsule by mouth once daily Krill Xni-Qsrpw-8-Dha-Epa 1 EACH capsule Discontinued 1 NMA PO DAILY September 27, 2016 1:00am May 02, 2020 10:14am losartan potassium 50 mg oral tablet (20 sources) Angiotensin 2 Receptor Camelia Start: 08-28-2019 End: 11-12-2023 take 1 tablet by mouth once daily Losartan 50 mg tablet Discontinued 50 mg PO DAILY July 31, 2022 5:27pm November 12, 2023 2:35pm Start: 04-30-2019 End: 08-28-2019 take 1 tablet by mouth once daily Losartan 100 mg tablet Discontinued 100 mg PO DAILY April 30, 2019 12:00am August 28, 2019 5:16pm Start: 09-26-2018 End: 04-30-2019 Losartan 50 mg tablet Discon tinued 50 mg PO .COMPLEX December 16, 2018 8:11am April 30, 2019 3:03pm 50 mg PO daily: takes the Losartan HCTZ once a day and the plain Losartan once a day; Start: 11-01-2017 End: 01-22-2018 take 1 tablet by mouth once daily Losartan 50 mg tablet Discontinued 50 mg PO daily November 08, 2017 3:56pm January 22, 2018 8:46am Start: 11-01-2016 take 1 tablet by omega th once daily LOSARTAN POTASSIUM 50 MG TABS One tablet by mouth daily LOSARTAN POTASSIUM [id number] Ubaldo Hassan MD Start: 07-25-2016 End: 07-31-2016 take 1 tablet by mouth once daily LOSARTAN POTASSIUM 50 MG TABS One tablet by mouth daily LOSARTAN POTASSIUM [id number] Ubaldo Hassan MD magnesium oxide 400 mg oral capsule (14 sources) Start: 01-22-2018 End: 09-25-2019 take 1 capsule by mouth once daily Magnesium Oxide 400 mg capsule Discontinued 400 mg PO daily January 22, 2018 12:00am September 25, 2019 11:14am Start: 05-06-2017 take 1 tablet by omega th once daily MAGNESIUM OXIDE 400 MG TABS One tablet by mouth daily MAGNESIUM OXIDE [id number] Ubaldo Hassan MD metoprolol tartrate 25 mg oral tablet (10 sources) beta-Adrenergic Camelia Start: 07-25-2016 End: 07-31-2016 take 1 tablet by mouth twice daily METOPROLOL TARTRATE 25 MG TABS One tablet by mouth twice daily METOPROLOL TARTRATE [id number] Aviva Alberto RN MULTIPLE VITAMINS-MINERALS (4 sources) Start: 07-25-2016 take 1 tablet by mouth once daily CENTRUM SILVER TABS One tablet by mouth daily MULTIPLE VITAMINS-MINERALS [id number] Aviva Alberto RN MULTIPLE VITAMINS-MINERALS (1 source) Start: 07-25-2016 take 1 tablet by mouth once daily CENTRUM SILVER TABS One tablet by mouth daily MULTIPLE VITAMINS-MINERALS [id number] Aviva Alberto RN Cbfhvhgf-Jrq-Yy-L ycopen-Lutein (Centrum Silver) 0.4-300-250 mg-mcg-mcg tablet (10 sources) Start: 01-22-2018 End: 05-02-2020 take 1 tablet by mouth once daily Cqejhqqj-Qis-Iw-Ly copen-Lutein (Centrum Silver) 0.4-300-250 mg-mcg-mcg tablet Discontinued 1 TABLET PO daily January 22, 2018 8:46am May 02, 2020 10:14am Start: 01-22-2018 End: 05-02-2020 Yzsrxoow-Ham-Az-Lycopen-Lute in (Centrum Silver) 0.4-300-250 mg-mcg-mcg tablet Discontinued 1 {tbl} PO daily January 22, 2018 12:00am May 02, 2020 10:14am Start: 01-22-2018 End: 05-02-2020 take 1 tablet by mouth once daily Fjdytbux-Ert-Ie-Lycopen-Lutein (Centrum Silver) 0.4-300-250 mg-mcg-mcg tablet Discontinued 1 TABLET PO daily January 21, 2018 11:00pm May 02, 2020 9:14am Start: 01-22-2018 End: 05-02-2020 take 1 tablet by mouth once daily Kkmkremh-Hkm-Gl-Lycopen-Lutein (Centrum Silver) 0.4-300-250 mg-mcg-mcg tablet Discontinued 1 TABLET PO daily January 22, 2018 12:00am May 02, 2020 10:14am Multivitamin 1 EACH tablet (1 source) Start: 09-27-2016 End: 01-22-2018 Multivitamin 1 EACH tablet Discontinued 1 NMA PO DAILY September 27, 2016 1:00am January 22, 2018 8:46am Multivitamin preparation (9 sources) Start: 09-27-2016 End: 01-22-2018 Multivitamin Discontinued 1 EACH PO DAILY September 27, 2016 3:22pm January 22, 2018 8:46am Start: 09-27-2016 End: 01-22-2018 Multivitamin Discontinued 1 EACH PO DAILY September 27, 2016 12:00am January 22, 2018 7:46am Start: 09-27-2016 End: 01-22-2018 Multivitamin Discontinued 1 EACH PO DAILY September 27, 2016 1:00am January 22, 2018 8:46am potassium chloride 10 meq extended release oral capsule (10 sources) Start: 11-03-2020 End: 03-30-2021 take 1 capsule by mouth once daily Potassium Chloride 10 mEq capsule, extended release Discontinued 10 meq PO DAILY November 03, 2020 1:00am March 30, 2021 1:58pm Semaglutide (12 sources) Start: 04-25-2023 End: 06-02-2024 Semaglutide (Ozempic) 0.25 mg or 0.5 mg (2 mg/3 mL) pen injector Discontinued 0.5 mg SC EVERY WEEK 3 April 25, 2023 12:05pm June 02, 2024 10:33am Start: 04-25-2023 Semaglutide (O zempic) 0.25 mg or 0.5 mg (2 mg/3 mL) pen injector Active 0.5 MG SC EVERY WEEK April 25, 2023 12:05pm Start: 04-25-2023 Semaglutide (O zempic) 0.25 mg or 0.5 mg (2 mg/3 mL) pen injector Active 0.5 MG SC EVERY WEEK April 25, 2023 11:05am Start: 01-24-2023 End: 04-25-2023 Semaglutide (Ozempic) 0.25 m g or 0.5 mg (2 mg/3 mL) pen injector Discontinued 0.5 mg SC EVERY WEEK January 24, 2023 3:45pm April 25, 2023 12:07pm Start: 01-24-2023 End: 04-25-2023 Semaglutide (Ozempic) 0.25 m g or 0.5 mg (2 mg/3 mL) pen injector Discontinued 0.5 MG SC EVERY WEEK January 24, 2023 3:45pm April 25, 2023 12:07pm Start: 01-24-2023 End: 04-25-2023 Semaglutide (Ozempic) 0.25 m g or 0.5 mg (2 mg/3 mL) pen injector Discontinued 0.5 MG SC EVERY WEEK January 24, 2023 2:45pm April 25, 2023 11:07am Start: 01-24-2023 End: 01-24-2023 Semaglutide (Ozempic) 0.25 m g or 0.5 mg (2 mg/3 mL) pen injector Discontinued 0.5 mg SC EVERY WEEK January 24, 2023 12:00am January 24, 2023 3:47pm Start: 01-24-2023 End: 01-24-2023 Semaglutide (Ozempic) 0.25 m g or 0.5 mg (2 mg/3 mL) pen injector Discontinued 0.5 MG SC EVERY WEEK January 24, 2023 12:00am January 24, 2023 3:47pm Start: 01-24-2023 End: 01-24-2023 Semaglutide (Ozempic) 0.25 m g or 0.5 mg (2 mg/3 mL) pen injector Discontinued 0.5 MG SC EVERY WEEK January 23, 2023 11:00pm January 24, 2023 2:47pm Semaglutide (Weight Loss) (20 sources) Start: 10-29-2022 End: 01-18-2023 Semaglutide (Weight Loss) (W egovy) 0.25 mg/0.5 mL pen injector Discontinued 0.25 mg SC EVERY WEEK 2 October 29, 2022 1:03pm January 18, 2023 10:47am administer weeks 1 through 4 of therapy Start: 10-29-2022 End: 01-18-2023 Semaglutide (Weight Loss) (W egovy) 0.25 mg/0.5 mL pen injector Discontinued 0.25 MG SC EVERY WEEK 2 October 29, 2022 1:03pm January 18, 2023 10:47am administer weeks 1 through 4 of therapy Start: 10-29-2022 End: 05-05-2023 Semaglutide (Weight Loss) (W egovy) 0.25 mg/0.5 mL pen injector Discontinued 0.25 MG SC EVERY WEEK 2 October 29, 2022 12:03pm January 18, 2023 9:47am administer weeks 1 through 4 of therapy Start: 10-29-2022 Semaglutide (W eight Loss) (Wegovy) 0.25 mg/0.5 mL pen injector Active 0.25 MG SC EVERY WEEK 2 October 29, 2022 1:03pm administer weeks 1 through 4 of therapy Start: 10-29-2022 Semaglutide (W eight Loss) (Wegovy) 0.25 mg/0.5 mL pen injector Active 0.25 MG SC EVERY WEEK 2 October 29, 2022 12:03pm administer weeks 1 through 4 of therapy Start: 06-13-2022 End: 10-29-2022 Semaglutide (Weight Loss) (W egovy) 0.25 mg/0.5 mL pen injector Discontinued 0.25 mg SC EVERY WEEK 2 June 13, 2022 2:45pm October 29, 2022 1:09pm administer weeks 1 through 4 of therapy Start: 06-13-2022 End: 10-29-2022 Semaglutide (Weight Loss) (W egovy) 0.25 mg/0.5 mL pen injector Discontinued 0.25 MG SC EVERY WEEK 2 June 13, 2022 2:45pm October 29, 2022 1:09pm administer weeks 1 through 4 of therapy Start: 06-13-2022 End: 10-29-2022 Semaglutide (Weight Loss) (W egovy) 0.25 mg/0.5 mL pen injector Discontinued 0.25 MG SC EVERY WEEK 2 June 13, 2022 1:45pm October 29, 2022 12:09pm administer weeks 1 through 4 of therapy Start: 06-13-2022 End: 06-13-2022 Semaglutide (Weight Loss) (W egovy) 0.25 mg/0.5 mL pen injector Discontinued 0.25 mg SC EVERY WEEK 2 June 13, 2022 12:00am June 13, 2022 2:44pm administer weeks 1 through 4 of therapy Start: 06-13-2022 End: 06-13-2022 Semaglutide (Weight Loss) (W egovy) 0.25 mg/0.5 mL pen injector Discontinued 0.25 MG SC EVERY WEEK 2 June 13, 2022 12:00am June 13, 2022 2:44pm administer weeks 1 through 4 of therapy Start: 06-13-2022 End: 06-13-2022 Semaglutide (Weight Loss) (W egovy) 0.25 mg/0.5 mL pen injector Discontinued 0.25 MG SC EVERY WEEK 2 June 12, 2022 11:00pm June 13, 2022 1:44pm administer weeks 1 through 4 of therapy tamsulosin hydrochloride 0.4 mg oral capsule (10 sources) alpha-Adrenergic Camelia Start: 09-25-2019 End: 03-30-2021 take 1 capsule by mouth at bedtime Tamsulosin 0.4 mg capsule Discontinued 0.4 mg PO AT BEDTIME September 25, 2019 1:00am March 30, 2021 1:58pm levothyroxine sodium 0.137 mg oral tablet (20 sources) l-Thyroxine Start: 10-25-2021 End: 11-12-2023 take 1 tablet by mouth once daily Levothyroxine 137 mcg tablet Discontinued 137 ug PO DAILY November 01, 2022 6:21pm November 12, 2023 2:35pm Start: 06-22-2021 End: 10-25-2021 take 1 tablet by mouth once daily Levothyroxine 150 mcg tablet Discontinued 150 ug PO DAILY June 22, 2021 12:00am October 25, 2021 11:30am Start: 03-30-2021 End: 06-22-2021 take 1 capsule by mouth once daily Levothyroxine 175 mcg capsule Discontinued 175 ug PO DAILY March 30, 2021 12:00am June 22, 2021 8:14am Start: 01-22-2018 End: 09-26-2018 Levothyroxine 175 mcg tablet Discontinued 175 ug PO .COMPLEX January 22, 2018 12:00am September 26, 2018 3:15pm 175 mcg PO Saturday-Saturday Start: 07-25-2016 End: 03-30-2021 take 1 tablet by mouth once daily Levothyroxine 150 mcg tablet Discontinued 150 ug PO DAILY September 26, 2018 3:15pm March 30, 2021 2:28pm TIOTROPIUM BROMIDE MONOHYDRATE (10 sources) Anticholinergic Start: 07-25-2016 End: 07-31-2016 SPIRIVA HANDIHALER 18 MCG CAPS As Directed TIOTROPIUM BROMIDE MONOHYDRATE [id number] Ashley Livingston RN Start: 07-25-2016 End: 07-31-2016 SPIRIVA HANDIHALER 18 MCG CA PS As Directed TIOTROPIUM BROMIDE MONOHYDRATE [id number] Ashley Livingston RN Start: 07-25-2016 SPIRIVA HANDIH ALER 18 MCG CAPS As Directed TIOTROPIUM BROMIDE MONOHYDRATE [id number] Aviva Alberto RN Turmeric Root Extract (10 sources) Start: 01-22-2018 End: 05-02-2020 take 500 mg by mouth once daily Turmeric Root Extract Discontinued 500 MG PO daily January 22, 2018 8:47am May 02, 2020 10:14am Start: 01-22-2018 End: 05-02-2020 take 1 capsule by mouth once daily Turmeric Root Extract 500 mg capsule Discontinued 500 mg PO daily January 22, 2018 12:00am May 02, 2020 10:14am Start: 01-22-2018 End: 05-02-2020 take 500 mg by mouth once daily Turmeric Root Extract Discontinued 500 MG PO daily January 21, 2018 11:00pm May 02, 2020 9:14am Start: 01-22-2018 End: 05-02-2020 take 500 mg by mouth once daily Turmeric Root Extract Discontinued 500 MG PO daily January 22, 2018 12:00am May 02, 2020 10:14am Problems Active Problems Problem Classification Problem Date Documented Da te Episodic/Chronic Abdominal pain (10 sources) Abdominal pain; 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: [Unspecified abdominal pain] 08-04-2021 Episodic Allergic reactions (6 sources) Allergic condition; 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: [Allergy, unspecified, initial encounter] 11-14-2022 Episodic Asthma (14 sources) Asthma; 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: [Unspecified asthma, uncomplicated] Onset: 4 06-05-2022 Chronic Chronic obstructive pulmonary disease and bronchiectasis (20 sources) Chronic obstructive lung disease; 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: [Pulmonary emphysema] Onset: 6 07-25-2016 Chronic Chronic obstructive pulmonary disease and bronchiectasis (10 sources) Bronchitis; 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: [Bronchitis, not specified as acute or chronic] 03-30-2021 Episodic Conditions associated with dizziness or vertigo (2 sources) Dizziness; 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: [Dizziness and giddiness] 10-14-2024 Episodic Congestive heart failure; nonhypertensive (3 sources) Symptomatic congestive heart failure; 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: [Unspecified diastolic (congestive) heart failure] Onset: 5 10-14-2024 Chronic Coronary atherosclerosis and other heart disease (2 sources) Coronary atherosclerosis; 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: [Atherosclerotic heart disease of [place] coronary artery without angina pectoris] Onset: 5 07-28-2024 Chronic Coronary atherosclerosis and other heart disease (2 sources) Presence of coronary angioplasty implant and graft; 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: [Presence of coronary angioplasty implant and graft] Onset: Episodic Deficiency and other anemia (3 sources) Increased hemoglobin; 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: [Other hemoglobinopathies] 10-28-2023 Chronic Deficiency and other anemia (1 source) Other hemoglobinopathies; 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: [Other hemoglobinopathies] Onset: Chronic Diabetes mellitus without complication (11 sources) Hyperglycemia; 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: [Hyperglycemia, unspecified] Onset: 5 06-13-2022 Episodic Disorders of lipid metabolism (20 sources) Hyperlipidemia; 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: [Hyperlipidemia, unspecified] Onset: 6 07-25-2016 Chronic Diverticulosis and diverticulitis (10 sources) Diverticulitis of intestine; 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: [Diverticulitis of intestine, part unspecified, without perforation or abscess without bleeding] 08-03-2021 Chronic Esophageal disorders (10 sources) Gastroesophageal reflux disease; 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: [Gastro-esophageal reflux disease without esophagitis] 03-30-2021 Chronic Essential hypertension (20 sources) Hypertensive disorder; 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: [Essential hypertension] Onset: 6 07-25-2016 Chronic Heart valve disorders (10 sources) Nonrheumatic aortic (valve) insufficiency; 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: [Nonrheumatic tricuspid (valve) insufficiency] Onset: 6 07-31-2016 Chronic Hyperplasia of prostate (16 sources) Benign prostatic hyperplasia; 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: [Benign prostatic hyperplasia without lower urinary tract symptoms] Onset: 5 Chronic Malaise and fatigue (12 sources) Fatigue; 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: [Other fatigue] Onset: 6 07-25-2016 Episodic Neoplasms of unspecified nature or uncertain behavior (10 sources) Neoplasm of bladder; 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] 06-09-2021 Episodic Nutritional deficiencies (1 source) Vitamin D deficiency, unspecified; 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: [Vitamin D deficiency, unspecified] Onset: 5 Chronic Other and ill-defined heart disease (6 sources) Heart disease; 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: [Heart disease, unspecified] 11-14-2022 Chronic Other circulatory disease (10 sources) Elevated blood-pressure reading without diagnosis of hypertension; 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: [Elevated blood-pressure reading, without diagnosis of hypertension] 03-30-2021 Episodic Other gastrointestinal disorders (6 sources) Finding of measures of abdomen; 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: [Other specified symptoms and signs involving the digestive system and abdomen] 11-16-2022 Episodic Other gastrointestinal disorders (3 sources) Other specified symptoms and signs involving the digestive system and abdomen; 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: [Abdominal or pelvic swelling, mass, or lump, unspecified site] 11-14-2022 Episodic Other lower respiratory disease (15 sources) Dyspnea; 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: [Shortness of breath] Onset: 6 07-31-2016 Episodic Other lower respiratory disease (10 sources) Dyspnea on exertion; 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: [Other forms of dyspnea] 04-03-2022 Episodic Other nervous system disorders (10 sources) Neuropathy; 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: [Polyneuropathy, unspecified] 03-30-2021 Chronic Other nervous system disorders (9 sources) Peripheral nerve disease ; 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: [Polyneuropathy, unspecified] 03-29-2022 Chronic Other nervous system disorders (6 sources) Polyneuropathy, unspecified; 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: [Unspecified hereditary and idiopathic peripheral neuropathy] Onset: 4 Chronic Other nervous system disorders (1 source) Piriformis syndrome; 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: [Lesion of sciatic nerve, unspecified lower limb] 03-09-2024 Chronic Other nervous system disorders (1 source) Lesion of sciatic nerve, unspecified lower limb; 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: [Lesion of sciatic nerve, unspecified lower limb] Onset: 4 Chronic Other nutritional; endocrine; and metabolic disorders (5 sources) Body mass index (BMI) 39.0-39.9, adult; 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: [Body mass index (BMI) 39.0-39.9, adult] Onset: 6 07-31-2016 Chronic Other nutritional; endocrine; and metabolic disorders (10 sources) Body mass index 30+ - obesity; 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: [Obesity, unspecified] 06-05-2022 Chronic Other nutritional; endocrine; and metabolic disorders (5 sources) Obesity, unspecified; 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: [Obesity, unspecified] Chronic Other nutritional; endocrine; and metabolic disorders (8 sources) Morbid obesity; 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: [Morbid (severe) obesity due to excess calories] 06-05-2022 Chronic Other nutritional; endocrine; and metabolic disorders (5 sources) Morbid (severe) obesity due to excess calories; 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: [Morbid obesity] Onset: 4 10-29-2022 Chronic Other nutritional; endocrine; and metabolic disorders (6 sources) Obese abdomen; 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: [Localized adiposity] 11-16-2022 Chronic Other nutritional; endocrine; and metabolic disorders (7 sources) Localized adiposity; 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: [Localized adiposity] Onset: 4 11-14-2022 Chronic Other screening for suspected conditions (not mental disorders or infectious disease) (1 source) Encounter for screening for malignant neoplasm of prostate; 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: [Encounter for screening for malignant neoplasm of prostate] Onset: 5 Episodic Other skin disorders (10 sources) Eruption; 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: [Rash and other nonspecific skin eruption] 10-24-2021 Episodic Other skin disorders (10 sources) Lesion of skin of face; 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: [Disorder of the skin and subcutaneous tissue, unspecified] 06-20-2021 Episodic Pneumonia (except that caused by tuberculosis or sexually transmitted disease) (10 sources) Pneumonia; 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: [Pneumonia, unspecified organism] 03-30-2021 Episodic Pulmonary heart disease (10 sources) Other secondary pulmonary hypertension; 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: [Other secondary pulmonary hypertension] Onset: 6 Resolved: 7 11-01-2016 Chronic Residual codes; unclassified (15 sources) Obstructive sleep apnea (adult) (pediatric); 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: [Obstructive sleep apnea (adult)(pediatric)] Onset: 5 Chronic Residual codes; unclassified (1 source) Daytime hypersomnia; 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: [Hypersomnia, unspecified] 07-13-2024 Chronic Residual codes; unclassified (2 sources) Hypersomnia, unspecified; 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: [Hypersomnia, unspecified] Onset: 4 Chronic Residual codes; unclassified (10 sources) History of colonoscopy; 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: [Other specified postprocedural states] 06-16-2021 Episodic Comment on above: 03/2014 Residual codes; unclassified (6 sources) Procedure related finding; 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: [Encounter for cosmetic surgery] 11-16-2022 Episodic Residual codes; unclassified (3 sources) Encounter for cosmetic surgery; 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: [Other plastic surgery for unacceptable cosmetic appearance] 11-14-2022 Episodic Screening and history of mental health and substance abuse codes (10 sources) Ex-smoker; 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: [Personal history of nicotine dependence] Onset: 5 11-16-2022 Episodic Substance-related disorders (13 sources) Nicotine dependence, unspecified, in remission; 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: [Nicotine dependence in remission] Chronic Thyroid disorders (20 sources) Hypothyroidism; 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: [Hypothyroidism, unspecified] Onset: 5 Chronic Unclassified (16 sources) Obstructive sleep apnea syndrome; 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: [Obstructive sleep apnea (adult) (pediatric)] Onset: 6 07-25-2016 Chronic Comment on above: Noncompliant with th erapy Unclassified (1 source) Long-term drug therapy; 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: [Other intermodal customer service (current) drug therapy] Onset: 6 07-31-2016 Past or Other Problems Problem Classification Problem Date Documented Date Episodic/Chronic Coma, stupor, brain damage (5 sources) Daytime somnolence; 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: [Somnolence] Onset: 07-31-2016 07-31-2016 Episodic Nonspecific chest pain (3 sources) Chest pain; 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: [Chest pain, unspecified] Onset: 08-17-2024 07-15-2024 Episodic Other aftercare (4 sources) Other group home (current) drug therapy; 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: [Other intermodal customer service (current) drug therapy] Onset: 07-31-2016 07-31-2016 Episodic Other circulatory disease (5 sources) Electrocardiogram abnormal; 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: [Abnormal electrocardiogram [ECG] [EKG]] Onset: 07-31-2016 07-31-2016 Episodic Other lower respiratory disease (6 sources) Shortness of breath; 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: [Shortness of breath] Onset: 08-11-2024 Episodic Other lower respiratory disease (4 sources) Other forms of dyspnea; 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: [Other respiratory abnormalities] Onset: 07-15-2024 Episodic Other skin disorders (2 sources) Rash and other nonspecific skin eruption; 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: [Rash and other nonspecific skin eruption] Onset: 03-09-2024 Episodic Residual codes; unclassified (10 sources) History of cardiac catheterization; 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: [Other specified postprocedural states] Onset: 09-28-2016 03-30-2021 Episodic Results Test Name Value Interpretation Reference Range Facility CBC W/Diff, Automatedon 12-16 Absolute Lymph 2.13 X10 3/uL Normal 0.83-4.51 [facility] Comment on above: Performed By: #### L 501.5200, L100.0100, L503.0106, L501.9520, L500.4050, L501.98983, L506.1001, L506.0400, L500.4100, L501.9985, L501.9910 #### [facility] [address] [place], [place], [id number] (296) Absolute Neut 4.8 X10 3/uL Normal 2.0-7.7 [facility] Comment on above: Performed By: #### L 501.5200, L100.0100, L503.0106, L501.9520, L500.4050, L501.53941, L506.1001, L506.0400, L500.4100, L501.9985, L501.9910 #### [facility] [address] [place], [place], [id number] (548) Basophils/100 WBC (Bld) 0.8 % Normal 0-1 [facility] Comment on above: Performed By: #### L 501.5200, L100.0100, L503.0106, L501.9520, L500.4050, L501.15889, L506.1001, L506.0400, L500.4100, L501.9985, L501.9910 #### [facility] [address] [place], [address] Eosinophils/100 WBC (Bld) 1.2 % Normal 0-5 [facility] Comment on above: Performed By: #### L 501.5200, L100.0100, L503.0106, L501.9520, L500.4050, L501.74707, L506.1001, L506.0400, L500.4100, L501.9985, L501.9910 #### [facility] [address] [place], [place], [phone] (203) Erythrocyte distribution width (RBC) [Ratio] 13.2 % Normal 11.6-14.6 [facility] Comment on above: Performed By: #### L 501.5200, L100.0100, L503.0106, L501.9520, L500.4050, L501.77675, L506.1001, L506.0400, L500.4100, L501.9985, L501.9910 #### [facility] [address] [place], [address] Hematocrit (Bld) [Volume fraction] 47.0 % Normal 40-54 [facility] Comment on above: Performed By: #### L 501.5200, L100.0100, L503.0106, L501.9520, L500.4050, L501.63940, L506.1001, L506.0400, L500.4100, L501.9985, L501.9910 #### [facility] [address] [place], [address] Hemoglobin (Bld) [Mass/Vol] 15.7 g/dL Normal 13.0-16.5 [facility] Comment on above: Performed By: #### L 501.5200, L100.0100, L503.0106, L501.9520, L500.4050, L501.88695, L506.1001, L506.0400, L500.4100, L501.9985, L501.9910 #### [facility] [address] [place], [address] IG% 0.300 Normal 0.0-0.9 [facility] Comment on above: Result Comment: IG% - Immature Granulocytes (promyelocytes, myelocytes and metamyelocytes) > 1% indicates that a LEFT SHIFT is Present. Performed By: #### L 501.5200, L100.0100, L503.0106, L501.9520, L500.4050, L501.98163, L506.1001, L506.0400, L500.4100, L501.9985, L501.9910 #### [facility] [address] [place], [address] Lymphocytes/100 WBC (Bld) 27.4 % Normal 19-41 [facility] Comment on above: Performed By: #### L 501.5200, L100.0100, L503.0106, L501.9520, L500.4050, L501.36464, L506.1001, L506.0400, L500.4100, L501.9985, L501.9910 #### [facility] [address] [place], [address] MCH (RBC) [Entitic mass] 30.6 pg Normal 27.0-32.0 [facility] Comment on above: Performed By: #### L 501.5200, L100.0100, L503.0106, L501.9520, L500.4050, L501.47892, L506.1001, L506.0400, L500.4100, L501.9985, L501.9910 #### [facility] [address] [place], [address] MCHC (RBC) [Mass/Vol] 33.4 g/dL Normal 32-36 [facility] Comment on above: Performed By: #### L 501.5200, L100.0100, L503.0106, L501.9520, L500.4050, L501.12826, L506.1001, L506.0400, L500.4100, L501.9985, L501.9910 #### [facility] [address] [place], [address] MCV (RBC) [Entitic vol] 91.6 fL Normal 80-94 [facility] Comment on above: Performed By: #### L 501.5200, L100.0100, L503.0106, L501.9520, L500.4050, L501.79672, L506.1001, L506.0400, L500.4100, L501.9985, L501.9910 #### [facility] [address] [place], [address] Monocytes/100 WBC (Bld) 8.0 % Normal 0-10 [facility] Comment on above: Performed By: #### L 501.5200, L100.0100, L503.0106, L501.9520, L500.4050, L501.08867, L506.1001, L506.0400, L500.4100, L501.9985, L501.9910 #### [facility] [address] [place], [address] Neutrophils/100 WBC (Bld) 62.3 % Normal 47-70 [facility] Comment on above: Performed By: #### L 501.5200, L100.0100, L503.0106, L501.9520, L500.4050, L501.39597, L506.1001, L506.0400, L500.4100, L501.9985, L501.9910 #### [facility] [address] [place], [address] Nucleated RBC (Bld) [#/Vol] 0 10*3/uL Normal 0-5 [facility] Comment on above: Performed By: #### L 501.5200, L100.0100, L503.0106, L501.9520, L500.4050, L501.01242, L506.1001, L506.0400, L500.4100, L501.9985, L501.9910 #### [facility] [address] [place], [address] Platelet mean volume (Bld) [Entitic vol] 10.2 fL Normal 6.2-12.0 [facility] Comment on above: Performed By: #### L 501.5200, L100.0100, L503.0106, L501.9520, L500.4050, L501.60091, L506.1001, L506.0400, L500.4100, L501.9985, L501.9910 #### [facility] [address] [place], [address] Platelets (Bld) [#/Vol] 189 10*3/uL Normal 150-450 [facility] Comment on above: Performed By: #### L 501.5200, L100.0100, L503.0106, L501.9520, L500.4050, L501.34281, L506.1001, L506.0400, L500.4100, L501.9985, L501.9910 #### [facility] [address] [place], [address] RBC (Bld) [#/Vol] 5.13 10*6/uL Normal 4.6-6.2 [facility] Comment on above: Performed By: #### L 501.5200, L100.0100, L503.0106, L501.9520, L500.4050, L501.65504, L506.1001, L506.0400, L500.4100, L501.9985, L501.9910 #### [facility] [address] [place], [place], [id number] RDW SD 44.9 fl High 35.1-43.9 [facility] Comment on above: Performed By: #### L 501.5200, L100.0100, L503.0106, L501.9520, L500.4050, L501.69223, L506.1001, L506.0400, L500.4100, L501.9985, L501.9910 #### [facility] [address] [place], [address] WBC (Bld) [#/Vol] 7.8 10*3/uL Normal 4.4-11.0 [facility] Comment on above: Performed By: #### L 501.5200, L100.0100, L503.0106, L501.9520, L500.4050, L501.31147, L506.1001, L506.0400, L500.4100, L501.9985, L501.9910 #### [facility] [address] [place], [place], [id number] Comprehensive Metabolic Prof ilon 01-06-2025 Albumin [Mass/Vol] 4.3 g/dL Normal 3.4-4.8 [facility] Comment on above: Performed By: #### L 501.5200, L100.0100, L503.0106, L501.9520, L500.4050, L501.05715, L506.1001, L506.0400, L500.4100, L501.9985, L501.9910 #### [facility] [address] [place], [place], [id number] Albumin/Globulin [Mass ratio] 1.3 {ratio} Normal 0.9-2.4 [facility] Comment on above: Performed By: #### L 501.5200, L100.0100, L503.0106, L501.9520, L500.4050, L501.01707, L506.1001, L506.0400, L500.4100, L501.9985, L501.9910 #### [facility] [address] [place], [address] ALK PHOS 94 U/L Normal 40-129 [facility] Comment on above: Performed By: #### L 501.5200, L100.0100, L503.0106, L501.9520, L500.4050, L501.07745, L506.1001, L506.0400, L500.4100, L501.9985, L501.9910 #### [facility] [address] [place], [place], [id number] (955) ALT [Catalytic activity/Vol] 22 U/L Normal <=46 [facility] Comment on above: Performed By: #### L 501.5200, L100.0100, L503.0106, L501.9520, L500.4050, L501.05276, L506.1001, L506.0400, L500.4100, L501.9985, L501.9910 #### [facility] [address] [place], [place], [id number] (271) AST [Catalytic activity/Vol] 24 U/L Normal <=37 [facility] Comment on above: Performed By: #### L 501.5200, L100.0100, L503.0106, L501.9520, L500.4050, L501.75322, L506.1001, L506.0400, L500.4100, L501.9985, L501.9910 #### [facility] [address] [place], [place], [id number] (484) Bilirubin [Mass/Vol] 0.60 mg/dL Normal 0.00-1.30 [facility] Comment on above: Performed By: #### L 501.5200, L100.0100, L503.0106, L501.9520, L500.4050, L501.49447, L506.1001, L506.0400, L500.4100, L501.9985, L501.9910 #### [facility] [address] [place], [address] BUN/CRE 22.6 RATIO High 10-20 [facility] Comment on above: Performed By: #### L 501.5200, L100.0100, L503.0106, L501.9520, L500.4050, L501.96565, L506.1001, L506.0400, L500.4100, L501.9985, L501.9910 #### [facility] [address] [place], [place], [id number] (493) Calcium [Mass/Vol] 9.4 mg/dL Normal 7.6-11.0 [facility] Comment on above: Performed By: #### L 501.5200, L100.0100, L503.0106, L501.9520, L500.4050, L501.71610, L506.1001, L506.0400, L500.4100, L501.9985, L501.9910 #### [facility] [address] [place], [place], [id number] (236) Chloride [Moles/Vol] 98 mmol/L Normal 98-108 [facility] Comment on above: Performed By: #### L 501.5200, L100.0100, L503.0106, L501.9520, L500.4050, L501.34689, L506.1001, L506.0400, L500.4100, L501.9985, L501.9910 #### [facility] [address] [place], [place], [id number] (514) CO2 [Moles/Vol] 26.1 mmol/L Normal 21.0-32.0 [facility] Comment on above: Performed By: #### L 501.5200, L100.0100, L503.0106, L501.9520, L500.4050, L501.30479, L506.1001, L506.0400, L500.4100, L501.9985, L501.9910 #### [facility] [address] [place], [place], [id number] Creatinine [Mass/Vol] 0.87 mg/dL Normal 0.70-1.20 [facility] Comment on above: Performed By: #### L 501.5200, L100.0100, L503.0106, L501.9520, L500.4050, L501.53215, L506.1001, L506.0400, L500.4100, L501.9985, L501.9910 #### [facility] [address] [place], [place], [id number] GAP 14 Normal 5-15 [facility] Comment on above: Performed By: #### L 501.5200, L100.0100, L503.0106, L501.9520, L500.4050, L501.93503, L506.1001, L506.0400, L500.4100, L501.9985, L501.9910 #### [facility] [address] [place], [place], [id number] GFR/1.73 sq M.predicted among non-blacks MDRD (S/P/Bld) [Vol rate/Area] 88 mL/min/{1.73_m2} Normal >60 [facility] Comment on above: Result Comment: mL/m in/1.73m2 CKD-EPI Creatinine Equation (2020) Performed By: #### L 501.5200, L100.0100, L503.0106, L501.9520, L500.4050, L501.49818, L506.1001, L506.0400, L500.4100, L501.9985, L501.9910 #### [facility] [address] [place], [address] Globulin (S) [Mass/Vol] 3.3 g/dL Normal 2.2-4.2 [facility] Comment on above: Performed By: #### L 501.5200, L100.0100, L503.0106, L501.9520, L500.4050, L501.63360, L506.1001, L506.0400, L500.4100, L501.9985, L501.9910 #### [facility] [address] [place], [address] Glucose [Mass/Vol] 112 mg/dL High 70-99 [facility] Comment on above: Performed By: #### L 501.5200, L100.0100, L503.0106, L501.9520, L500.4050, L501.37676, L506.1001, L506.0400, L500.4100, L501.9985, L501.9910 #### [facility] [address] [place], [address] Potassium [Moles/Vol] 3.5 mmol/L Normal 3.3-5.1 [facility] Comment on above: Performed By: #### L 501.5200, L100.0100, L503.0106, L501.9520, L500.4050, L501.39440, L506.1001, L506.0400, L500.4100, L501.9985, L501.9910 #### [facility] [address] [place], [address] Sodium [Moles/Vol] 138 mmol/L Normal 133-145 [facility] Comment on above: Performed By: #### L 501.5200, L100.0100, L503.0106, L501.9520, L500.4050, L501.12105, L506.1001, L506.0400, L500.4100, L501.9985, L501.9910 #### [facility] [address] [place], [address] T PROT 7.6 g/dL Normal 5.9-8.4 [facility] Comment on above: Performed By: #### L 501.5200, L100.0100, L503.0106, L501.9520, L500.4050, L501.70203, L506.1001, L506.0400, L500.4100, L501.9985, L501.9910 #### [facility] [address] [place], [address] Urea nitrogen [Mass/Vol] 20 mg/dL High 4-19 [facility] Comment on above: Performed By: #### L 501.5200, L100.0100, L503.0106, L501.9520, L500.4050, L501.49109, L506.1001, L506.0400, L500.4100, L501.9985, L501.9910 #### [facility] [address] [place], [address] Free T3on 01-06-2025 Free T3 [Mass/Vol] 2.9 pg/mL Normal 2.18-3.98 [facility] Comment on above: Performed By: #### L 501.5200, L100.0100, L503.0106, L501.9520, L500.4050, L501.05575, L506.1001, L506.0400, L500.4100, L501.9985, L501.9910 ####[facility] [id number] [place], [address] Hemoglobin A1con 01-06-2025 HbA1c (Bld) [Mass fraction] 5.9 % High <=5.6 [facility] Comment on above: Result Comment: Norm al < 5.7 % Prediabetic 5.7 - 6.4 % Diabetic >or= 6.5 % Please note range changes. Performed By: #### L 501.5200, L100.0100, L503.0106, L501.9520, L500.4050, L501.64727, L506.1001, L506.0400, L500.4100, L501.9985, L501.9910 #### [facility] [address] [place], [address] Lipid Profileon 01-06-2025 CHOL:HDL 4.05 Normal [facility] Comment on above: Performed By: #### L 501.5200, L100.0100, L503.0106, L501.9520, L500.4050, L501.17873, L506.1001, L506.0400, L500.4100, L501.9985, L501.9910 #### [facility] [address] [place], [place], [id number] Cholesterol [Mass/Vol] 180 mg/dL Normal <=200 [facility] Comment on above: Result Comment: Chol esterol level, Desirable <200 mg/dL Borderline high cholesterol 200-239 mg/dL High cholesterol >=240 mg/dL Recommendations of the NCEP Adult Treatment Panel for the following risk-cutoff thresholds for the [place] population. Performed By: #### L 501.5200, L100.0100, L503.0106, L501.9520, L500.4050, L501.82209, L506.1001, L506.0400, L500.4100, L501.9985, L501.9910 #### [facility] [address] [place], [place], [id number] Cholesterol in HDL [Mass/Vol] 44 mg/dL Normal [facility] Comment on above: Result Comment: Samantha onal Cholesterol Education Program (NCEP) guidelines: <40 mg/dL: Low HDL-cholesterol (major risk factor for CHD) >= 60 mg/dL: High HDL-cholesterol (negative risk factor for CHD) HDL-cholesterol is affected by a number of factors, e.g. smoking, exercise, hormones, sex and age. Performed By: #### L 501.5200, L100.0100, L503.0106, L501.9520, L500.4050, L501.29944, L506.1001, L506.0400, L500.4100, L501.9985, L501.9910 #### [facility] [address] [place], [address] Cholesterol in LDL [Mass/Vol] 98 mg/dL Normal [facility] Comment on above: Result Comment: Bord bvqszr=963-512 mg/dL Higher Uqpv=190 mg/dL or greater Performed By: #### L 501.5200, L100.0100, L503.0106, L501.9520, L500.4050, L501.36718, L506.1001, L506.0400, L500.4100, L501.9985, L501.9910 #### [facility] [address] [place], [address] Cholesterol in VLDL [Mass/Vol] 38 mg/dL Normal 5-40 [facility] Comment on above: Performed By: #### L 501.5200, L100.0100, L503.0106, L501.9520, L500.4050, L501.14089, L506.1001, L506.0400, L500.4100, L501.9985, L501.9910 #### [facility] [address] [place], [address] Triglyceride [Mass/Vol] 189 mg/dL Normal [facility] Comment on above: Result Comment: The drugs N-Acetylcysteine and Metamizole may falsely depress this assay. Normal range: <150 mg/dL Borderline High: 150-199 mg/dL High: 200-499 mg/dL Very High: >500 mg/dL Performed By: #### L 501.5200, L100.0100, L503.0106, L501.9520, L500.4050, L501.84680, L506.1001, L506.0400, L500.4100, L501.9985, L501.9910 #### [facility] [address] [place], [place], [address] MR/BMS.IMBon 01-06-2025 MR/BMS.IMB [facility] [address] [place] [address] OFFICE VISIT Date of Service: 01/06/25 MR#: [id number] Acct: [id number] Name: APARNA CARRERA Rep #: [id number] : 1945 Provider: Dr. Melina varner MD Age/Sex: 79/M Location: [facility] Status: Signed Intake Vital Signs 08/05/24 09:54 11/19/24 07:58 01/06/25 09:40 Height 5 ft 9 in 5 ft 9 in 5 ft 9 in Weight: 260 lb 263 lb BMI 38.4 38.8 BP 117/78 127/78 H Blood Pressure Location Lt brachial Lt brachial Position Sitting Sitting Respiration 18 16 Pulse 74 80 Pulse Source Monitor Monitor Temp 96.4 F L 98.0 F Temp Source Temporal Pulse Oximetry (%) 97 93 Oxygen Delivery Method room air room air Intake Visit Reasons: 5 M FU Chief Complaint: 5 M FU Research Professional Required: No Accompanied by: Self Is patient in pain?: No Allergies Penicillins Allergy (Severe, Verified 01/06/25 09:35) Anaphylaxis perfume Allergy (Intermediate, Verified 01/06/25 09:35) Other-triggers asthma attack perflutren (From Definity) Allergy (Verified 01/06/25 09:35) Unknown vancomycin Adverse Reaction (Intermediate, Verified 01/06/25 09:35) Other-htn atorvastatin (From Lipitor) Adverse Reaction (Mild, Verified 01/06/25 09:35) Other-myalgias dobutamine Adverse Reaction (Mild, Verified 01/06/25 09:35) Other-muscle spasm egg Adverse Reaction (Mild, Verified 01/06/25 09:35) WATER BLISTERS fluticasone (From Flonase) Adverse Reaction (Mild, Verified 01/06/25 09:35) Other-nosebleed rosuvastatin (From Crestor) Adverse Reaction (Mild, Verified 01/06/25 09:35) Other-myalgias simvastatin (From Zocor) Adverse Reaction (Mild, Verified 01/06/25 09:35) Other-myalgias Medications ???Medication ???Instructions ???Recorded ???Confirmed ???Type polyethylene glycol 3350 17 gram 17 g PO DAILY constipation 1 01/06/25 History oral powder packet (Miralax) calcium carbonate (Tums) 200 mg PO BID PRN supplement 06/0501/06/25 History ibuprofen 600 mg tablet 600 mg PO Q6H PRN fever or pain 01/06/25 Rx #20 tabs albuterol sulfate 90 mcg/actuation 2 puff inhalation Q4H PRN 01/06/25 Rx aerosol inhaler (ProAir HFA) shortness of breath or wheezing #18 grams dutasteride 0.5 mg-tamsulosin ER 1 cap PO QDAY prostate 06/02/24 History 0.4 mg capsule ext.release 24hr mphas cholecalciferol (vitamin D3) 25 2,000 unit PO DAILY vitamin 01/06/25 History mcg (1,000 unit) capsule (Vitamin D3) aspirin 81 mg tablet,delayed 81 mg PO QDAY 08/05/24 01/06/25 Hi story release (Adult Low Dose Aspirin) ticagrelor 90 mg tablet (Brilinta) 90 mg PO BID #180 tabs 08/31/24 01/06/25 Rx cyanocobalamin (vitamin B-12) 1,000 mcg PO DAILY vitamin #90 tab s 09/04/24 01/06/25 Rx 1,000 mcg tablet furosemide 40 mg tablet 40 mg PO BID diuretic #180 tabs 01/06/25 Rx blood-glucose meter #1 ea 09/14/24 01/06/25 Rx lancets #200 ea 09/14/24 01/06/25 Rx blood sugar diagnostic (Blood #200 ea 10/07/24 01/06/25 Rx Glucose Test strips) ezetimibe 10 mg tablet (Zetia) 10 mg PO QDAY #30 tabs 10/14/24 Rx losartan 50 mg-hydrochlorothiazi de 1 tab PO Q OTHER DAY #45 tabs 01/06/25 Rx 12.5 mg tablet oxybutynin chloride 10 mg 10 mg PO DAILY bladder #90 tabs 01/06/25 Rx tablet,extended release 24 hr levothyroxine 137 mcg tablet 137 mcg PO DAILY thyroid #90 tabs 12/18/24 01/06/25 Rx losartan 50 mg tablet 50 mg PO DAILY blood pressure #90 12/23/24 01/06/25 Rx tabs Have you fallen in the past year?: No PFSH Medical History Atherosclerosis of coronary artery of [place] heart without angina pectoris Protuberant abdomen Abdominal obesity Elective procedure for unacceptable cosmetic appearance Heart disease History of UTI Allergies Uses wheelchair Ambulates with cane Dietary restriction History of diverticulitis On home oxygen therapy History of CHF (congestive heart failure) Loss of hearing Wears glasses Wears partial dentures Wears dentures Alcohol use Thyroid disease Walker as ambulation aid Arthritis Bladder disease Prostate disease High cholesterol Restless legs Back pain Migraine headache History of hiatal hernia Gastric reflux Former smoker COPD (chronic obstructive pulmonary disease) Emphysema, unspecified Chronic cough Shortness of breath on exertion History of edema History of echocardiogram History of stress test Cardiology follow-up encounter Hypertension Essential hypertension Groin mass chipped bones Torn cartilage Lung nodule Dyspnea Cyst of right kidney Asbestos exposure Emphysema lung Bronchitis Bronchiectasis Asthma Obesity (BMI 30-39.9) (more content not included)... Normal [facility] Magnesiumon 01-06-2025 Magnesium [Mass/Vol] 2.2 mg/dL Normal 1.5-2.2 [facility] Comment on above: Performed By: #### L 501.5200, L100.0100, L503.0106, L501.9520, L500.4050, L501.68987, L506.1001, L506.0400, L500.4100, L501.9985, L501.9910 ####[facility] [address] [place], [place], [id number] PSA,Total - Annual Screenon 01-06-2025 PSA,TOT SCREEN 0.12 ng/mL Normal 0.02-4.00 [facility] Comment on above: Result Comment: This test was performed using the [employer] tPSA method. Measured values of a patient??sample can vary depending on the testing procedure used. PSA values determined on patient samples by different testing procedures cannot be used interchangeably. If there is a change in PSA assays while monitoring therapy, sequential testing should be performed to confirm baseline values. Performed By: #### L 501.5200, L100.0100, L503.0106, L501.9520, L500.4050, L501.40814, L506.1001, L506.0400, L500.4100, L501.9985, L501.9910 ####[facility] [address] [facility] [address] [place], [place], [id number] T4 Free Directon 01-06-2025 T4 FREE DIRECT 1.30 ng/dL Normal 0.76-1.46 [facility] Comment on above: Performed By: #### L 501.5200, L100.0100, L503.0106, L501.9520, L500.4050, L501.16402, L506.1001, L506.0400, L500.4100, L501.9985, L501.9910 ####[facility] [address] [facility] [address] [place], [place], [id number] Thyroid Stim Hormone (TSH)on 01-06-2025 TSH 0.169 uIU/mL Low 0.300-4.200 [facility] Comment on above: Performed By: #### L 501.5200, L100.0100, L503.0106, L501.9520, L500.4050, L501.32841, L506.1001, L506.0400, L500.4100, L501.9985, L501.9910 ####[facility] [address] [place], [place], [address] Vitamin B12on 01-06-2025 Cobalamin (Vitamin B12) [Mass/Vol] 1138 pg/mL High 180-914 [facility] Comment on above: Performed By: #### L 501.5200, L100.0100, L503.0106, L501.9520, L500.4050, L501.38012, L506.1001, L506.0400, L500.4100, L501.9985, L501.9910 ####[facility] [address] [place], [place], [id number] Vitamin D,25 Hydroxyon 01-06 Vitamin D 25-OH 33.2 ng/mL Normal 30-100 [facility] Comment on above: Result Comment: Jennifer min D Status Deficiency: <20 ng/mL (50nmol/L) Insufficiency: 20-30 ng/mL (50-75 nmol/L) Sufficiency: 30-100 ng/mL (75-250 nmol/L) Toxicity: >100 ng/mL (>250 nmol/L) Performed By: #### L 501.5200, L100.0100, L503.0106, L501.9520, L500.4050, L501.07866, L506.1001, L506.0400, L500.4100, L501.9985, L501.9910 ####[facility] [address] [place], [place], [address] Pulmonary Visit Reporton Pulmonary Visit Report [facility] [address] [place], [place] [address] OFFICE VISIT Date of Service: 11/19/24 MR#: [id number] Acct: [id number] Name: APARNA CARRERA Rep #: [id number] : 1945 Provider: RADHA Esquivel Age/Sex: 79/M Location: [facility] Status: Signed Assessment and Plan Assessment and Plan (1) Obstructive sleep apnea: Status: Chronic Comment: Noncompliant with therapy Plan: Unfortunately, the patient was not able to afford the co-pay to complete the sleep test. I explained to the patient that since we have ruled out the need for supplemental oxygen on ambulation, we cannot qualify him for supplemental oxygen with sleep given the fact that we know he has obstructive sleep apnea that he has not been compliant for and that his asthma is only mild, there is really no need for him to follow-up here in the office. I did suggest that if he decides he would like to pursue the sleep test and management of his obstructive sleep apnea he can contact the office and we will reestablish care and that process. He conveys understanding. Follow-up as needed. (2) Asthma: Status: Chronic Qualifiers: Asthma severity: mild Asthma persistence: intermittent Asthma complication type: uncomplicated Qualified Code(s): J45.20 - Mild intermittent asthma, uncomplicated Plan: Asymptomatic. Mild intermittent. Given the mild degree of his asthma, this can be managed by his PCP. (3) Morbid obesity due to excess calories: Status: Chronic Plan: Continue to encourage weight loss. (4) Diastolic CHF with preserved left ventricular function, NYHA class 2: Status: Suspected Plan: Complicates exam, plan, care and prognosis. HPI HPI Comments Details: This patient presents to the office today follow-up on his asthma, bronchiectasis and obstructive sleep apnea for which he is noncompliant. He ambulatory with the use of a cane. He is on room air. He has not been seen in the ED or urgent care for any respiratory illnesses since his last office visit. He has not required any antibiotics or prednisone for any breathing problems. He is not currently on any maintenance inhalers. He does not currently routinely use albuterol. He continues to have shortness of breath on exertion. He reports an occasional cough productive of clear to light khan-colored sputum. He denies any hemoptysis. He occasionally experience chest tightness but denies any wheezing, chest pain or palpitations. He has not had any fever, chills or body aches. He does check his oxygen saturations occasionally. He states that typically the are 94 to 97%. If you recall, at the last office visit a polysomnogram was ordered. Unfortunately, after initially agreeing to having the polysomnogram, once it was scheduled the patient canceled it. When questioned if he was going to reschedule it he states I am not paying for it. Intake Vital Signs 07/13/24 08:19 08/12/24 14:04 11/19/24 07:58 Height 5 ft 10 in 5 ft 9 in 5 ft 9 in Weight: 260 lb BMI 38.4 BP 117/78 Blood Pressure Location Lt brachial Position Sitting Respiration 18 Pulse 74 Pulse Source Monitor Temp 96.4 F L Temperature Source Temporal Artery Pulse Oximetry (%) 97 Oxygen Delivery Method room air Intake Visit Reasons: 6 M Chief Complaint: heart stent fu Research Professional Required: No Accompanied by: Self Allergies Penicillins Allergy (Severe, Verified 11/19/24 09:10) Anaphylaxis perfume Allergy (Intermediate, Verified 11/19/24 09:10) Other-triggers asthma attack perflutren (From Definity) Allergy (Verified 11/19/24 09:10) Unknown vancomycin Adverse Reaction (Intermediate, Verified 11/19/24 09:10) Other-htn atorvastatin (From Lipitor) Adverse Reaction (Mild, Verified 11/19/24 09:10) Other-myalgias dobutamine Adverse Reaction (Mild, Verified 11/19/24 09:10) Other-muscle spasm egg Adverse Reaction (Mild, Verified 11/19/24 09:10) WATER BLISTERS fluticasone (From Flonase) Adverse Reaction (Mild, Verified 11/19/24 09:10) Other-nosebleed rosuvastatin (From Crestor) Adverse Reaction (Mild, Verified 11/19/24 09:10) Other-myalgias simvastatin (From Zocor) Adverse Reaction (Mild, Verified 11/19/24 09:10) Other-myalgias Medications ???Medication ???Instructions ???Recorded ???Confirmed ???Type polyethylene glycol 3350 17 gram 17 g PO DAILY constipation 1 11/19/24 History oral powder packet (Miralax) calcium carbonate (Tums) 200 mg PO BID PRN supplement 06/0511/19/24 History butter balm 1 applic topical DAILY PRN rough 08/03/21 11/19/24 History spots ibuprofen 600 mg tablet 600 mg PO Q6H PRN fever or pain 11/19/24 Rx #20 tabs albuterol sulfate 90 mcg/actuation 2 puff inhalation Q4H PRN 11/19/24 Rx a (more content not included)... Normal [facility] Cardiology Visit Reporton Cardiology Visit Report [facility] [address] [place] [address] OFFICE VISIT Date of Service: 10/14/24 MR#: [id number] Acct: [id number] Name: APARNA CARRERA Rep #: [id number] : 1945 Provider: STEPHANIE Myers Age/Sex: 79/M Location: [facility] Status: Signed HPI HPI History of Present Illness Details: Aparna Carrera is a 78-year-old gentleman that presents here today for an urgent cardiovascular follow-up at the request of pulmonary for concerns over congestive heart failure. He has a history of hypertension, hyperlipidemia, obstructive sleep apnea, COPD. He has no documented obstructive coronary disease. He underwent a cardiac catheterization in 2016 it demonstrated preserved ejection fraction of 75%, normal coronary arteries, and normal right heart pressures. Echocardiogram in May 2024 demonstrates an ejection fraction of 65%. Unable to assess diastolic dysfunction. No regional wall motion abnormalities noted. Left and right atrium are normal. In June 2024 he had noted increased shortness of breath. He had a stress test that was abnormal. He did undergo a diagnostic heart catheterization in July 2024 which demonstrated single-vessel disease in the circumflex which he underwent stenting of. He can not afford to have a sleep study. Pt is lightheadedness/dizz iness. He does find that he is dizzy drinking a from a cup and now a straw. When he is in the shower and drying off. The room does not spin but he feels lightheaded. He has not had any syncope. He will continue with cardiac rehab. Intake Vital Signs 07/15/24 09:32 10/12/24 11:07 10/14/24 08:49 Height 5 ft 10 in 5 ft 9 in 5 ft 9 in Weight: 262 lb BMI 38.7 BP 129/71 H Blood Pressure Location Lt brachial Position Sitting Respiration 20 H Pulse 87 Pulse Source Monitor Pulse Oximetry (%) 92 Intake Visit Reasons: 3 M FU Research Professional Required: No Is patient in pain?: No Allergies Penicillins Allergy (Severe, Verified 10/14/24 08:49) Anaphylaxis perfume Allergy (Intermediate, Verified 10/14/24 08:49) Other-triggers asthma attack perflutren (From Definity) Allergy (Verified 10/14/24 08:49) Unknown vancomycin Adverse Reaction (Intermediate, Verified 10/14/24 08:49) Other-htn atorvastatin (From Lipitor) Adverse Reaction (Mild, Verified 10/14/24 08:49) Other-myalgias dobutamine Adverse Reaction (Mild, Verified 10/14/24 08:49) Other-muscle spasm egg Adverse Reaction (Mild, Verified 10/14/24 08:49) WATER BLISTERS fluticasone (From Flonase) Adverse Reaction (Mild, Verified 10/14/24 08:49) Other-nosebleed rosuvastatin (From Crestor) Adverse Reaction (Mild, Verified 10/14/24 08:49) Other-myalgias simvastatin (From Zocor) Adverse Reaction (Mild, Verified 10/14/24 08:49) Other-myalgias Medications ???Medication ???Instructions ???Recorded ???Confirmed ???Type polyethylene glycol 3350 17 gram 17 g PO DAILY constipation 06/02/21 10/14/24 History oral powder packet (Miralax) calcium carbonate (Tums) 200 mg PO BID PRN supplement 06/05/21 10/14/24 History butter balm 1 applic topical DAILY PRN rough 08/03/21 10/14/24 History spots ibuprofen 600 mg tablet 600 mg PO Q6H PRN fever or pain 04/27/22 10/14/24 Rx #20 tabs albuterol sulfate 90 mcg/actuation 2 puff inhalation Q4H PRN 06/05/22 10/14/24 Rx aerosol inhaler (ProAir HFA) shortness of breath or wheezing #18 grams levothyroxine 137 mcg tablet 137 mcg PO DAILY thyroid #90 tabs 11/12/23 10/14/24 Rx losartan 50 mg tablet 50 mg PO DAILY blood pressure #90 11/12/23 10/14/24 Rx tabs oxybutynin chloride 10 mg 10 mg PO DAILY bladder #90 tabs 11/12/23 10/14/24 Rx tablet,extended release 24 hr dutasteride 0.5 mg-tamsulosin ER 1 cap PO QDAY prostate 06/02/24 10/14/24 History 0.4 mg capsule ext.release 24hr mphas cholecalciferol (vitamin D3) 25 2,000 unit PO DAILY vitamin 07/28/24 10/14/24 History mcg (1,000 unit) capsule (Vitamin D3) aspirin 81 mg tablet,delayed 81 mg PO QDAY 08/05/24 10/14/24 History release (Adult Low Dose Aspirin) losartan 50 mg-hydrochlorothiazi de 1 tab PO Q OTHER DAY 08/05/24 10/14/24 History 12.5 mg tablet ticagrelor 90 mg tablet (Brilinta) 90 mg PO BID #180 tabs 08/31/24 Rx cyanocobalamin (vitamin B-12) 1,000 mcg PO DAILY vitamin #90 tabs 09/04/24 10/14/24 Rx 1,000 mcg tablet furosemide 40 mg tablet 40 mg PO BID diuretic #180 tabs 09/04/24 10/14/24 Rx blood-glucose meter #1 ea 09/14/24 Rx lancets #200 ea 09/14/24 Rx blood sugar diagnostic (Blood #200 ea 10/07/24 Rx Glucose Test strips) ezetimibe 10 mg tablet (Zetia) 10 mg PO QDAY #30 tabs 10/14/24 10/14/24 Rx Have you fallen in the past year?: No [facility] Medical History (more content not included)... Normal [facility] 24-UF-Ojyunnr DOrdered By: Reno Agosto on 08-21-2024 Vitamin D 25-Hydroxy 27.2 ng/mL [facility] Comment on above: Vitamin D 25(OH) Sta tus Range Deficiency <20 ng/mL (50nmol/L) Insufficiency 20 - 30 ng/mL (50 - 75 nmol/L) Sufficiency 30 - 100 ng/mL (75 - 250 nmol/L) Toxicity >100 ng/mL (>250 nmol/L) Absolute neutrophil countOrd ered By: Melina Agosto on 08-21-2024 Neutrophils (Bld) [#/Vol] 4.2 10*3/uL 2.0-7.7 [facility] Albumin to globulin ratioOrd ered By: Melina Roblerochner on 08-21-2024 Albumin/Globulin [Mass ratio] 1.0 {ratio} 0.9-2.4 [facility] Basophil percentageOrdered B y: Melina Agosto on 08-21-2024 Basophils/100 WBC (Bld) 0.7 % 0-1 [facility] Bilirubin, totalOrdered By: Melina Agosto on 08-21-2024 Bilirubin [Mass/Vol] 1.00 mg/dL 0.20-1.00 [facility] Comment on above: For patients on eltr ombopag therapy, use of Dimension [place] TBIL is not recommended. Blood urea nitrogen (BUN)/cr eatinine ratioOrdered By: Melina Agosto on 08-21-2024 Urea nitrogen/Creatinine [Mass ratio] 19.9 mg/mg 10-20 [facility] CBC W/Diff, Automatedon 12 Absolute Lymph 2.34 X10 3/uL Normal 0.83-4.51 [facility] Comment on above: Performed By: #### L 500.4100, L506.1000, L100.0100, L506.0400, L501.9520, L501.5200, L500.4050, L501.38470 ####[facility] [address] [place], [place], [phone]) Absolute Neut 4.2 X10 3/uL Normal 2.0-7.7 [facility] Comment on above: Performed By: #### L 500.4100, L506.1000, L100.0100, L506.0400, L501.9520, L501.5200, L500.4050, L501.23711 ####[facility] [address] [place], [address] Basophils/100 WBC (Bld) 0.7 % Normal 0-1 [facility] Comment on above: Performed By: #### L 500.4100, L506.1000, L100.0100, L506.0400, L501.9520, L501.5200, L500.4050, L501.50746 ####[facility] [address] [place], [address] Eosinophils/100 WBC (Bld) 1.5 % Normal 0-5 [facility] Comment on above: Performed By: #### L 500.4100, L506.1000, L100.0100, L506.0400, L501.9520, L501.5200, L500.4050, L501.35452 ####[facility] [address] [place], [phone]) Erythrocyte distribution width (RBC) [Ratio] 13.0 % Normal 11.6-14.6 [facility] Comment on above: Performed By: #### L 500.4100, L506.1000, L100.0100, L506.0400, L501.9520, L501.5200, L500.4050, L501.09999 ####[facility] [address] [place], [address](698) Hematocrit (Bld) [Volume fraction] 48.0 % Normal 40-54 [facility] Comment on above: Performed By: #### L 500.4100, L506.1000, L100.0100, L506.0400, L501.9520, L501.5200, L500.4050, L501.12132 ####[facility] [address] [place], [place], [phone]([phone]) Hemoglobin (Bld) [Mass/Vol] 16.0 g/dL Normal 13.0-16.5 [facility] Comment on above: Performed By: #### L 500.4100, L506.1000, L100.0100, L506.0400, L501.9520, L501.5200, L500.4050, L501.94825 ####[facility] [address] [place], [address] IG% 0.300 Normal 0.0-0.9 [facility] Comment on above: Result Comment: IG% - Immature Granulocytes (promyelocytes, myelocytes and metamyelocytes) > 1% indicates that a LEFT SHIFT is Present. Performed By: #### L 500.4100, L506.1000, L100.0100, L506.0400, L501.9520, L501.5200, L500.4050, L501.98284 ####[facility] [address] [place], [address] Lymphocytes/100 WBC (Bld) 31.4 % Normal 19-41 [facility] Comment on above: Performed By: #### L 500.4100, L506.1000, L100.0100, L506.0400, L501.9520, L501.5200, L500.4050, L501.54076 ####[facility] [address] [place], [address] MCH (RBC) [Entitic mass] 30.1 pg Normal 27.0-32.0 [facility] Comment on above: Performed By: #### L 500.4100, L506.1000, L100.0100, L506.0400, L501.9520, L501.5200, L500.4050, L501.37360 ####[facility] [address] [place], [address] MCHC (RBC) [Mass/Vol] 33.3 g/dL Normal 32-36 [facility] Comment on above: Performed By: #### L 500.4100, L506.1000, L100.0100, L506.0400, L501.9520, L501.5200, L500.4050, L501.34914 ####[facility] [address] [place], [address] MCV (RBC) [Entitic vol] 90.2 fL Normal 80-94 [facility] Comment on above: Performed By: #### L 500.4100, L506.1000, L100.0100, L506.0400, L501.9520, L501.5200, L500.4050, L501.29333 ####[facility] [address] [place], [address] Monocytes/100 WBC (Bld) 9.9 % Normal 0-10 [facility] Comment on above: Performed By: #### L 500.4100, L506.1000, L100.0100, L506.0400, L501.9520, L501.5200, L500.4050, L501.37843 ####[facility] [address] [place], [address] Neutrophils/100 WBC (Bld) 56.2 % Normal 47-70 [facility] Comment on above: Performed By: #### L 500.4100, L506.1000, L100.0100, L506.0400, L501.9520, L501.5200, L500.4050, L501.66259 ####[facility] [address] [place], [address] Nucleated RBC (Bld) [#/Vol] 0 10*3/uL Normal 0-5 [facility] Comment on above: Performed By: #### L 500.4100, L506.1000, L100.0100, L506.0400, L501.9520, L501.5200, L500.4050, L501.07645 ####[facility] [address] [place], [address] Platelet mean volume (Bld) [Entitic vol] 10.4 fL Normal 6.2-12.0 [facility] Comment on above: Performed By: #### L 500.4100, L506.1000, L100.0100, L506.0400, L501.9520, L501.5200, L500.4050, L501.57561 ####[facility] [address] [place], [address] Platelets (Bld) [#/Vol] 170 10*3/uL Normal 150-450 [facility] Comment on above: Performed By: #### L 500.4100, L506.1000, L100.0100, L506.0400, L501.9520, L501.5200, L500.4050, L501.92492 ####[facility] [address] [place], [address] RBC (Bld) [#/Vol] 5.32 10*6/uL Normal 4.6-6.2 [facility] Comment on above: Performed By: #### L 500.4100, L506.1000, L100.0100, L506.0400, L501.9520, L501.5200, L500.4050, L501.99172 ####[facility] [address] [place], [address] RDW SD 42.8 fl Normal 35.1-43.9 [facility] Comment on above: Performed By: #### L 500.4100, L506.1000, L100.0100, L506.0400, L501.9520, L501.5200, L500.4050, L501.82752 ####[facility] [address] [place], [address] WBC (Bld) [#/Vol] 7.5 10*3/uL Normal 4.4-11.0 [facility] Comment on above: Performed By: #### L 500.4100, L506.1000, L100.0100, L506.0400, L501.9520, L501.5200, L500.4050, L501.30402 ####[facility] [address] [place], [id number] Carbon dioxide measurementOr dered By: Melina Agosto on 08-21-2024 CO2 [Moles/Vol] 29.0 mmol/L 21.0-32.0 [facility] Chloride measurementOrdered By: Melina Agosto on 08-21-2024 Chloride [Moles/Vol] 100 mmol/L 98-107 [facility] Comprehensive Metabolic Prof ilon 08-21-2024 Albumin [Mass/Vol] 3.8 g/dL Normal 3.2-5.0 [facility] Comment on above: Order Comment: PSA I S DUE IN NOVEMBER. Performed By: #### L 500.4100, L506.1000, L100.0100, L506.0400, L501.9520, L501.5200, L500.4050, L501.69979 ####[facility] [address] [place], [place], [phone] Albumin/Globulin [Mass ratio] 1.0 {ratio} Normal 0.9-2.4 [facility] Comment on above: Order Comment: PSA I S DUE IN NOVEMBER. Performed By: #### L 500.4100, L506.1000, L100.0100, L506.0400, L501.9520, L501.5200, L500.4050, L501.54012 ####[facility] [address] [place], [place], [phone] ALK P 87 U/L Normal 45-117 [facility] Comment on above: Order Comment: PSA I S DUE IN NOVEMBER. Performed By: #### L 500.4100, L506.1000, L100.0100, L506.0400, L501.9520, L501.5200, L500.4050, L501.49673 ####[facility] [address] [place], [place], [phone] ALT [Catalytic activity/Vol] 12 U/L Low 16-61 [facility] Comment on above: Order Comment: PSA I S DUE IN NOVEMBER. Performed By: #### L 500.4100, L506.1000, L100.0100, L506.0400, L501.9520, L501.5200, L500.4050, L501.87960 ####[facility] [address] [place], [address] AST [Catalytic activity/Vol] 19 U/L Normal 15-37 [facility] Comment on above: Order Comment: PSA I S DUE IN NOVEMBER. Performed By: #### L 500.4100, L506.1000, L100.0100, L506.0400, L501.9520, L501.5200, L500.4050, L501.63869 ####[facility] [address] [place], [address] Bilirubin [Mass/Vol] 1.00 mg/dL Normal 0.20-1.00 [facility] Comment on above: Order Comment: PSA I S DUE IN NOVEMBER. Result Comment: For patients on eltrombopag therapy, use of Dimension [place] TBIL is not recommended. Performed By: #### L 500.4100, L506.1000, L100.0100, L506.0400, L501.9520, L501.5200, L500.4050, L501.13662 ####[facility] [address] [place], [address] BUN/CRE 19.9 RATIO Normal 10-20 [facility] Comment on above: Order Comment: PSA I S DUE IN NOVEMBER. Performed By: #### L 500.4100, L506.1000, L100.0100, L506.0400, L501.9520, L501.5200, L500.4050, L501.69554 ####[facility] [address] [place], [address] CA,Total 9.4 mg/dL Normal 8.5-10.1 [facility] Comment on above: Order Comment: PSA I S DUE IN NOVEMBER. Performed By: #### L 500.4100, L506.1000, L100.0100, L506.0400, L501.9520, L501.5200, L500.4050, L501.45323 ####[facility] [address] [place], [address] Chloride [Moles/Vol] 100 mmol/L Normal 98-107 [facility] Comment on above: Order Comment: PSA I S DUE IN NOVEMBER. Performed By: #### L 500.4100, L506.1000, L100.0100, L506.0400, L501.9520, L501.5200, L500.4050, L501.06959 ####[facility] [address] [place], [address] CO2 [Moles/Vol] 29.0 mmol/L Normal 21.0-32.0 [facility] Comment on above: Order Comment: PSA I S DUE IN NOVEMBER. Performed By: #### L 500.4100, L506.1000, L100.0100, L506.0400, L501.9520, L501.5200, L500.4050, L501.00799 ####[facility] [address] [place], [address] Creatinine [Mass/Vol] 0.96 mg/dL Normal 0.70-1.30 [facility] Comment on above: Order Comment: PSA I S DUE IN NOVEMBER. Result Comment: The validity of the calculated GFR GFRAA in patients over 70 years has not been determined. Clinical correlation is essential. Performed By: #### L 500.4100, L506.1000, L100.0100, L506.0400, L501.9520, L501.5200, L500.4050, L501.29811 ####[facility] [address] [place], [address] EST GFR - AA 98 mL/min Normal >60 [facility] Comment on above: Order Comment: PSA I S DUE IN NOVEMBER. Result Comment: Afri can [place] GFR Calc Performed By: #### L 500.4100, L506.1000, L100.0100, L506.0400, L501.9520, L501.5200, L500.4050, L501.59119 ####[facility] [address] [place], [address] GAP 8 Normal 5-15 [facility] Comment on above: Order Comment: PSA I S DUE IN NOVEMBER. Performed By: #### L 500.4100, L506.1000, L100.0100, L506.0400, L501.9520, L501.5200, L500.4050, L501.60005 ####[facility] [address] [place], [place], [phone](161) GFR/1.73 sq M.predicted among non-blacks MDRD (S/P/Bld) [Vol rate/Area] 81 mL/min/{1.73_m2} Normal >60 [facility] Comment on above: Order Comment: PSA I S DUE IN NOVEMBER. Result Comment: Non- GFR Calc Performed By: #### L 500.4100, L506.1000, L100.0100, L506.0400, L501.9520, L501.5200, L500.4050, L501.86763 ####[facility] [address] [place], [place], [phone]) Globulin (S) [Mass/Vol] 3.8 g/dL Normal 2.2-4.2 [facility] Comment on above: Order Comment: PSA I S DUE IN NOVEMBER. Performed By: #### L 500.4100, L506.1000, L100.0100, L506.0400, L501.9520, L501.5200, L500.4050, L501.41852 ####[facility] [address] [place], [place], [phone]) Glucose [Mass/Vol] 119 mg/dL High 74-106 [facility] Comment on above: Order Comment: PSA I S DUE IN NOVEMBER. Result Comment: Fast ing Glucose result from 100 to 125 mg/dL suggests IMPAIRED HOMEOSTASIS per A.D.A. criteria. Performed By: #### L 500.4100, L506.1000, L100.0100, L506.0400, L501.9520, L501.5200, L500.4050, L501.59132 ####[facility] [address] [place], [address] Potassium [Moles/Vol] 3.4 mmol/L Low 3.5-5.1 [facility] Comment on above: Order Comment: PSA I S DUE IN NOVEMBER. Performed By: #### L 500.4100, L506.1000, L100.0100, L506.0400, L501.9520, L501.5200, L500.4050, L501.16628 ####[facility] [address] [place], [address] Sodium [Moles/Vol] 138 mmol/L Normal 136-145 [facility] Comment on above: Order Comment: PSA I S DUE IN NOVEMBER. Performed By: #### L 500.4100, L506.1000, L100.0100, L506.0400, L501.9520, L501.5200, L500.4050, L501.00594 ####[facility] [address] [place], [address] T PROT 7.6 g/dL Normal 6.4-8.2 [facility] Comment on above: Order Comment: PSA I S DUE IN NOVEMBER. Performed By: #### L 500.4100, L506.1000, L100.0100, L506.0400, L501.9520, L501.5200, L500.4050, L501.58296 ####[facility] [address] [place], [address] Urea nitrogen [Mass/Vol] 19 mg/dL High 7-18 [facility] Comment on above: Order Comment: PSA I S DUE IN NOVEMBER. Performed By: #### L 500.4100, L506.1000, L100.0100, L506.0400, L501.9520, L501.5200, L500.4050, L501.46371 ####[facility] [address] [place], [place], [phone] Direct serum free thyroxine (FT4) measurementOrdered By: Melina Agosto on 08-21-2024 Free T4 [Mass/Vol] 1.22 ng/dL 0.76-1.46 [facility] Eosinophil percentageOrdered By: Melina Agosto on 08-21-2024 Eosinophils/100 WBC (Bld) 1.5 % 0-5 [facility] Erythrocyte distribution wid th ratioOrdered By: Melina Agosto on 08-21-2024 Erythrocyte distribution width (RBC) [Ratio] 13.0 % 11.6-14.6 [facility] Erythrocyte distribution wid th standard deviationOrdered By: Melina Agosto on 08-21-2024 Erythrocyte distribution width (RBC) [Entitic vol] 42.8 fL 35.1-43.9 [facility] Estimated glomerular filtrat ion rate (GFR) AmericanOrdered By: Melina Agosto on 08-21-2024 Estimated GFR (MDRD) Amer 98 mL/min >60 [facility] Comment on above: GFR Calc Free T3on 08-21-2024 Free T3 [Mass/Vol] 2.7 pg/mL Normal 2.18-3.98 [facility] Comment on above: Order Comment: PSA I S DUE IN NOVEMBER. Performed By: #### L 500.4100, L506.1000, L100.0100, L506.0400, L501.9520, L501.5200, L500.4050, L501.97599 ####[facility] [address] [place], [place], [phone] Free B3Dyppieo By: Melina blackmon on 08-21-2024 Free Triiodothyronine (T3) pg/dL 2.7 pg/mL 2.18-3.98 [facility] Glomerular filtration rate ( GFR) estimationOrdered By: Melina Agosto on 08-21-2024 Estimated GFR (MDRD) Non-Af Amer 81 mL/min >60 [facility] Comment on above: Non- GFR Calc Glucose measurementOrdered B y: Melina Agosto on 08-21-2024 Glucose [Mass/Vol] 119 mg/dL High 74-106 [facility] Comment on above: Fasting Glucose resu lt from 100 to 125 mg/dL suggests IMPAIRED HOMEOSTASIS per A.D.A. criteria. Hematocrit Auto (Bld) [Volum e fraction]Ordered By: Melina Agosto on 08-21-2024 Hematocrit (Bld) [Volume fraction] 48.0 % 40-54 [facility] Hemoglobin measurementOrdere d By: Melina Agosto on 08-21-2024 Hemoglobin (Bld) [Mass/Vol] 16.0 g/dL 13.0-16.5 [facility] High density lipoprotein (HD L) measurementOrdered By: Melina Agosto on 08-21-2024 Cholesterol in HDL [Mass/Vol] 44 mg/dL >40 [facility] Comment on above: The drugs N-Acetylcy steine and Metamizole may falsely depress this assay. Reference Range HDL <40 mg/dL Low HDL Cholesterol HDL >or= 60 mg/dL High HDL Cholesterol Immature granulocytes/100 WB C Auto (Bld)Ordered By: Melina Agosto on 08-21-2024 Immature granulocytes/100 WBC (Bld) 0.300 % 0.0-0.9 [facility] Comment on above: IG% - Immature Granu locytes (promyelocytes, myelocytes and metamyelocytes) > 1% indicates that a LEFT SHIFT is Present. Laboratory - Chemistry and C hemistry - challengeOrdered By: Melina Agosto on 08-21-2024 AST [Catalytic activity/Vol] 19 U/L 15-37 [facility] Lipid Profileon 08-21-2024 Cholesterol [Mass/Vol] 208 mg/dL High 200 [facility] Comment on above: Order Comment: PSA I S DUE IN NOVEMBER. Result Comment: <200 mg/dL Desirable 200-240 mg/dL Borderline >240 mg/dL High Risk Performed By: #### L 500.4100, L506.1000, L100.0100, L506.0400, L501.9520, L501.5200, L500.4050, L501.50681 ####[facility] [address] [place], [address] Cholesterol in HDL [Mass/Vol] 44 mg/dL Normal [facility] Comment on above: Order Comment: PSA I S DUE IN NOVEMBER. Result Comment: The drugs N-Acetylcysteine and Metamizole may falsely depress this assay. Reference Range HDL <40 mg/dL Low HDL Cholesterol HDL >or= 60 mg/dL High HDL Cholesterol Performed By: #### L 500.4100, L506.1000, L100.0100, L506.0400, L501.9520, L501.5200, L500.4050, L501.85190 ####[facility] [address] [place], [address] Cholesterol in LDL [Mass/Vol] 126 mg/dL Normal 0-130 [facility] Comment on above: Order Comment: PSA I S DUE IN NOVEMBER. Performed By: #### L 500.4100, L506.1000, L100.0100, L506.0400, L501.9520, L501.5200, L500.4050, L501.76820 ####[facility] [address] [place], [address] Cholesterol in VLDL [Mass/Vol] 38 mg/dL Normal 5-40 [facility] Comment on above: Order Comment: PSA I S DUE IN NOVEMBER. Performed By: #### L 500.4100, L506.1000, L100.0100, L506.0400, L501.9520, L501.5200, L500.4050, L501.38621 ####[facility] [address] [place], [address] Triglyceride [Mass/Vol] 192 mg/dL Normal [facility] Comment on above: Order Comment: PSA I S DUE IN NOVEMBER. Result Comment: The drugs N-Acetylcysteine and Metamizole may falsely depress this assay. Serum Triglycerides Reference Interval Normal <150 mg/dL Borderline high 150 - 199 mg/dL High 200 - 499 mg/dL Very High > or = 500 mg/dL Performed By: #### L 500.4100, L506.1000, L100.0100, L506.0400, L501.9520, L501.5200, L500.4050, L501.15778 ####[facility] [address] [place], [place], [phone] Low density lipoprotein (LDL ) cholesterol measurementOrdered By: Melina Agosto on 08-21-2024 Cholesterol in LDL [Mass/Vol] 126 mg/dL 0-130 [facility] Lymphocytes Auto (Unsp spec) [#/Vol]Ordered By: Melina Agosto on 08-21-2024 Lymphocytes (Bld) [#/Vol] 2.34 10*3/uL 0.83-4.51 [facility] Lymphocytes/100 WBC Auto (Un sp spec)Ordered By: Melina Agosto on 08-21-2024 Lymphocytes/100 WBC (Bld) 31.4 % 19-41 [facility] MCV (mean corpuscular volume ) determinationOrdered By: Melina Agosto on 08-21-2024 MCV (RBC) [Entitic vol] 90.2 fL 80-94 [facility] Magnesiumon 08-21-2024 Magnesium [Mass/Vol] 2.0 mg/dL Normal 1.6-2.6 [facility] Comment on above: Order Comment: PSA I S DUE IN NOVEMBER. Performed By: #### L 500.4100, L506.1000, L100.0100, L506.0400, L501.9520, L501.5200, L500.4050, L501.54676 ####[facility] [address] [place], [place], [phone] Magnesium measurementOrdered By: Melina Agosto on 08-21-2024 Magnesium [Mass/Vol] 2.0 mg/dL 1.6-2.6 [facility] Mean corpuscular hemoglobin (MCH) determinationOrdered By: Melina Agosto on 08-21-2024 MCH (RBC) [Entitic mass] 30.1 pg 27.0-32.0 [facility] Mean corpuscular hemoglobin concentration (MCHC) determinationOrdered By: Melina Agosto on 08-21-2024 MCHC (RBC) [Mass/Vol] 33.3 g/dL 32-36 [facility] Mean platelet volume determi nationOrdered By: Melina Agosto on 08-21-2024 Platelet mean volume (Bld) [Entitic vol] 10.4 fL 6.2-12.0 [facility] Monocyte percentageOrdered B y: Melina Agosto on 08-21-2024 Monocytes/100 WBC (Bld) 9.9 % 0-10 [facility] Neutrophil percentageOrdered By: Melina Agosto on 08-21-2024 Neutrophils/100 WBC (Bld) 56.2 % 47-70 [facility] Nucleated red blood cell per centageOrdered By: Melina Agosto on 08-21-2024 Nucleated RBC/100 WBC (Bld) [Ratio] 0 % 0-5 [facility] Platelet countOrdered By: Pauline Agosto on 08-21-2024 Platelets (Bld) [#/Vol] 170 10*3/uL 150-450 [facility] Potassium measurementOrdered By: Melina Agosto on 08-21-2024 Potassium [Moles/Vol] 3.4 mmol/L Low 3.5-5.1 [facility] RBC Auto (Bld) [#/Vol]Ordere d By: Melina Agosto on 08-21-2024 RBC (Bld) [#/Vol] 5.32 10*6/uL 4.6-6.2 [facility] Serum anion gap measurementO rdered By: Melina Agosto on 08-21-2024 Anion gap [Moles/Vol] 8 mmol/L 5-15 [facility] Serum globulin measurementOr dered By: Melina Agosto on 08-21-2024 Globulin (S) [Mass/Vol] 3.8 g/dL 2.2-4.2 [facility] Serum or plasma alanine martinez otransferase (ALT) measurementOrdered By: Melina Agosto on 08-21-2024 ALT [Catalytic activity/Vol] 12 U/L Low 16-61 [facility] Serum or plasma albumin gerson urement (mass/volume)Ordered By: Melina Agosto on 08-21-2024 Albumin [Mass/Vol] 3.8 g/dL 3.2-5.0 [facility] Serum or plasma alkaline leanna sphatase measurementOrdered By: Melina Agosto on 08-21-2024 ALP [Catalytic activity/Vol] 87 U/L 45-117 [facility] Serum or plasma calcium gerson urement (mass/volume)Ordered By: Melina Agosto on 08-21-2024 Calcium [Mass/Vol] 9.4 mg/dL 8.5-10.1 [facility] Serum or plasma cholesterol measurement (mass/volume)Ordered By: Melina Agosto on 08-21-2024 Cholesterol [Mass/Vol] 208 mg/dL High <200 [facility] Comment on above: <200 mg/dL Desirable 200-240 mg/dL Borderline >240 mg/dL High Risk Serum or plasma creatinine m easurement (mass/volume)Ordered By: Melina Agosto on 08-21-2024 Creatinine [Mass/Vol] 0.96 mg/dL 0.70-1.30 [facility] Comment on above: The validity of the calculated GFR & GFRAA in patients over 70 years has not been determined. Clinical correlation is essential. Serum or plasma urea nitroge n measurement (mass/volume)Ordered By: Melina Agosto on 08-21-2024 Urea nitrogen [Mass/Vol] 19 mg/dL High 7-18 [facility] Sodium levelOrdered By: Sharon Agosto on 08-21-2024 Sodium [Moles/Vol] 138 mmol/L 136-145 [facility] T4 Free Directon 08-21-2024 T4 FREE DIRECT 1.22 ng/dL Normal 0.76-1.46 [facility] Comment on above: Order Comment: PSA I S DUE IN NOVEMBER. Performed By: #### L 500.4100, L506.1000, L100.0100, L506.0400, L501.9520, L501.5200, L500.4050, L501.08920 ####[facility] [address] [place], [place], [address] TSH QnOrdered By: Melina Batista hner on 08-21-2024 Thyroid Stimulating Hormone (TSH) 0.389 uIU/mL 0.358-3.740 [facility] Thyroid Stim Hormone (TSH)on 08-21-2024 TSH 0.389 uIU/mL Normal 0.358-3.740 [facility] Comment on above: Order Comment: PSA I S DUE IN NOVEMBER. Performed By: #### L 500.4100, L506.1000, L100.0100, L506.0400, L501.9520, L501.5200, L500.4050, L501.61351 ####[facility] [address] [place], [place], [address] Total proteinOrdered By: Rola Agosto on 08-21-2024 Protein [Mass/Vol] 7.6 g/dL 6.4-8.2 [facility] Triglycerides measurementOrd ered By: Melina Agosto on 08-21-2024 Triglyceride [Mass/Vol] 192 mg/dL <199 [facility] Comment on above: The drugs N-Acetylcy steine and Metamizole may falsely depress this assay.Serum Triglycerides Reference Interval Normal <150 mg/dL Borderline high 150 - 199 mg/dL High 200 - 499 mg/dL Very High > or = 500 mg/dL Very low density lipoprotein (VLDL) cholesterol measurementOrdered By: Melina Agosto on 08-21-2024 VLDL Cholesterol 38 mg/dL 5-40 [facility] Vitamin D,25 Hydroxyon 08-21 Vitamin D 25-OH 27.2 ng/mL Normal [facility] Comment on above: Result Comment: Jennifer min D 25(OH) Status Range Deficiency <20 ng/mL (50nmol/L) Insufficiency 20 - 30 ng/mL (50 - 75 nmol/L) Sufficiency 30 - 100 ng/mL (75 - 250 nmol/L) Toxicity >100 ng/mL (>250 nmol/L) Performed By: #### L 500.4100, L506.1000, L100.0100, L506.0400, L501.9520, L501.5200, L500.4050, L501.75134 ####[facility] [address] [place], [address] White blood cell (WBC) count Ordered By: Melina Agosto on 08-21-2024 WBC (Bld) [#/Vol] 7.5 10*3/uL 4.4-11.0 [facility] CR - History AND Physicalon 08-12-2024 CR - History & Physical [facility] [address] [place] [address] CR - History Physical MR#: [id number] Acct: [id number] Name: APARNA CARRERA Rep #: [id number] : 1945 78 From: Fermin WORRELL, RVT PCP: Dr. Melina Agosto MD DOS: 08/12/24 CR - History Physical General Arrival date:: 08/12/24 Arrival time:: 13:48 Date of Referral:: 07/28/24 Date of CR Evaluation:: 08/12/24 Referring Physician: Dr. Raza Primary Diagnosis: PCI with stent History of Present Cardiac Event Onset Date PTCA or coronary stenting:: Yes Vessel: Left circumflex artery onset 07/28/24 Medications Ambulatory Orders ???Medication ???Instructions ???Recorded polyethylene glycol 3350 17 gram 17 g PO DAILY constipation 06/02/21 oral powder packet (Miralax) calcium carbonate (Tums) 200 mg PO BID PRN supplement 06/05/21 butter balm 1 applic topical DAILY PRN rough 08/03/21 spots ibuprofen 600 mg tablet 600 mg PO Q6H PRN fever or pain 04/27/22 #20 tabs albuterol sulfate 90 mcg/actuation 2 puff inhalation Q4H PRN 09/20/22 aerosol inhaler (ProAir HFA) shortness of breath or wheezing #18 grams levothyroxine 137 mcg tablet 137 mcg PO DAILY thyroid #90 tabs 11/12/23 losartan 50 mg tablet 50 mg PO DAILY blood pressure #90 11/12/23 tabs oxybutynin chloride 10 mg 10 mg PO DAILY bladder #90 tabs 11/12/23 tablet,extended release 24 hr dutasteride 0.5 mg-tamsulosin ER 1 cap PO QDAY prostate 06/02/24 0.4 mg capsule ext.release 24hr mphas furosemide 40 mg tablet 40 mg PO BID diuretic 06/02/24 cholecalciferol (vitamin D3) 25 2,000 unit PO DAILY vitamin 07/28/24 mcg (1,000 unit) capsule (Vitamin D3) cyanocobalamin (vitamin B-12) 1,000 mcg PO DAILY vitamin 07/28/24 1,000 mcg tablet ticagrelor 90 mg tablet (Brilinta) 90 mg PO BID #180 tabs 07/29/24 aspirin 81 mg tablet,delayed 81 mg PO QDAY 08/05/24 release (Adult Low Dose Aspirin) losartan 50 mg-hydrochlorothiazi de 1 tab PO Q OTHER DAY 08/05/24 12.5 mg tablet Allergies Allergies Penicillins Allergy (Severe, Verified 08/05/24 09:41) Anaphylaxis perfume Allergy (Intermediate, Verified 08/05/24 09:41) Other-triggers asthma attack perflutren (From Definity) Allergy (Verified 08/05/24 09:41) Unknown vancomycin Adverse Reaction (Intermediate, Verified 08/05/24 09:41) Other-htn atorvastatin (From Lipitor) Adverse Reaction (Mild, Verified 08/05/24 09:41) Other-myalgias dobutamine Adverse Reaction (Mild, Verified 08/05/24 09:41) Other-muscle spasm egg Adverse Reaction (Mild, Verified 08/05/24 09:41) WATER BLISTERS fluticasone (From Flonase) Adverse Reaction (Mild, Verified 08/05/24 09:41) Other-nosebleed rosuvastatin (From Crestor) Adverse Reaction (Mild, Verified 08/05/24 09:41) Other-myalgias simvastatin (From Zocor) Adverse Reaction (Mild, Verified 08/05/24 09:41) Other-myalgias Sleep Disorder Evaluation Hx of Sleep Apnea: Yes Do you snore loudly (louder than talking or can be heard through closed doors)?: No Do you often feel tired/ fatigued/ sleepy during daytime?: No Has anyone observed you stop breathing during sleep?: No History of Hypertension (for STOP score): Yes STOP Results: Negative Advanced Directives Advanced Directives Power of Store Receiver: No Living Will: No Advance Directives Information Provided: No Advance Directives on File: No DNR Order?:: No Past Medical History Covid-19 Screening Physicial Symptoms Other Clinical Concerns Exposure Risk Pertinent Comorbidities 65 years or older:: Yes Has a chronic lung disease or moderate to severe asthma:: Yes Past Medical Illness Medical History Atherosclerosis of coronary artery of [place] heart without angina pectoris Protuberant abdomen Abdominal obesity Elective procedure for unacceptable cosmetic appearance Heart disease History of UTI Allergies Uses wheelchair Ambulates with cane Dietary restriction History of diverticulitis On home oxygen therapy History of CHF (congestive heart failure) Loss of hearing Wears glasses Wears partial dentures Wears dentures Alcohol use Thyroid disease Walker as ambulation aid Arthritis Bladder disease Prostate disease High cholesterol Restless legs Back pain Migraine headache History of hiatal hernia Gastric reflux Former smoker COPD (chronic obstructive pulmonary disease) Emphysema, unspecified Chronic cough Shortness of breath on exertion History of edema History of echocardiogram History of stress test Cardiology follow-up encounter Hypertension Essential hypertension Groin mass chipped bones Torn cartilage Lung nodule Dyspnea Cyst of right kidney Asbestos exposure Emphysema lung Bronchitis Bronchiectasis Asthma Obesity (BMI 30-39.9) Nicotine dependence in (more content not included)... Normal [facility] MR/BMS.Scotty 08-05-2024 MR/BMS.IMB [facility] [address] [place] [address] OFFICE VISIT Date of Service: 08/05/24 MR#: [id number] Acct: [id number] Name: APARNA CARRERA Rep #: [id number] : 1945 Provider: Dr. Melina varner MD Age/Sex: 78/M Location: [facility] Status: Signed Intake Vital Signs 07/28/24 10:56 08/05/24 09:54 Height 5 ft 9 in 5 ft 9 in Weight: 269 lb BMI 39.7 BP 125/79 H Blood Pressure Location Rt brachial Position Sitting Respiration 16 Pulse 82 Pulse Source Monitor Temp 97.8 F Temp Source Temporal Pulse Oximetry (%) 95 Oxygen Delivery Method room air Intake Visit Reasons: Heart Stent FU Chief Complaint: heart stent fu Research Professional Required: No Accompanied by: Self Is patient in pain?: No Allergies Penicillins Allergy (Severe, Verified 08/05/24 09:41) Anaphylaxis perfume Allergy (Intermediate, Verified 08/05/24 09:41) Other-triggers asthma attack perflutren (From Definity) Allergy (Verified 08/05/24 09:41) Unknown vancomycin Adverse Reaction (Intermediate, Verified 08/05/24 09:41) Other-htn atorvastatin (From Lipitor) Adverse Reaction (Mild, Verified 08/05/24 09:41) Other-myalgias dobutamine Adverse Reaction (Mild, Verified 08/05/24 09:41) Other-muscle spasm egg Adverse Reaction (Mild, Verified 08/05/24 09:41) WATER BLISTERS fluticasone (From Flonase) Adverse Reaction (Mild, Verified 08/05/24 09:41) Other-nosebleed rosuvastatin (From Crestor) Adverse Reaction (Mild, Verified 08/05/24 09:41) Other-myalgias simvastatin (From Zocor) Adverse Reaction (Mild, Verified 08/05/24 09:41) Other-myalgias Medications ???Medication ???Instructions ???Recorded ???Confirmed ???Type polyethylene glycol 3350 17 gram 17 g PO DAILY constipation 06/02/21 08/05/24 History oral powder packet (Miralax) calcium carbonate (Tums) 200 mg PO BID PRN supplement 06/05/21 08/05/24 History butter balm 1 applic topical DAILY PRN rough 08/03/21 08/05/24 History spots ibuprofen 600 mg tablet 600 mg PO Q6H PRN fever or pain 04/27/22 08/05/24 Rx #20 tabs albuterol sulfate 90 mcg/actuation 2 puff inhalation Q4H PRN 06/05/22 08/05/24 Rx aerosol inhaler (ProAir HFA) shortness of breath or wheezing #18 grams levothyroxine 137 mcg tablet 137 mcg PO DAILY thyroid #90 tabs 11/12/23 08/05/24 Rx losartan 50 mg tablet 50 mg PO DAILY blood pressure #90 11/12/23 08/05/24 Rx tabs oxybutynin chloride 10 mg 10 mg PO DAILY bladder #90 tabs 11/12/23 08/05/24 Rx tablet,extended release 24 hr dutasteride 0.5 mg-tamsulosin ER 1 cap PO QDAY prostate 06/02/24 08/05/24 History 0.4 mg capsule ext.release 24hr mphas furosemide 40 mg tablet 40 mg PO BID diuretic 06/02/24 08/05/24 History cholecalciferol (vitamin D3) 25 2,000 unit PO DAILY vitamin 07/28/24 08/05/24 History mcg (1,000 unit) capsule (Vitamin D3) cyanocobalamin (vitamin B-12) 1,000 mcg PO DAILY vitamin 07/28/24 08/05/24 History 1,000 mcg tablet ticagrelor 90 mg tablet (Brilinta) 90 mg PO BID #180 tabs 07/29/24 08/05/24 Rx aspirin 81 mg tablet,delayed 81 mg PO QDAY 08/05/24 08/05/24 History release (Adult Low Dose Aspirin) losartan 50 mg-hydrochlorothiazi de 1 tab PO Q OTHER DAY 08/05/24 08/05/24 History 12.5 mg tablet Have you fallen in the past year?: No PFSH Medical History Atherosclerosis of coronary artery of [place] heart without angina pectoris Protuberant abdomen Abdominal obesity Elective procedure for unacceptable cosmetic appearance Heart disease History of UTI Allergies Uses wheelchair Ambulates with cane Dietary restriction History of diverticulitis On home oxygen therapy History of CHF (congestive heart failure) Loss of hearing Wears glasses Wears partial dentures Wears dentures Alcohol use Thyroid disease Walker as ambulation aid Arthritis Bladder disease Prostate disease High cholesterol Restless legs Back pain Migraine headache History of hiatal hernia Gastric reflux Former smoker COPD (chronic obstructive pulmonary disease) Emphysema, unspecified Chronic cough Shortness of breath on exertion History of edema History of echocardiogram History of stress test Cardiology follow-up encounter Hypertension Essential hypertension Groin mass chipped bones Torn cartilage Lung nodule Dyspnea Cyst of right kidney Asbestos exposure Emphysema lung Bronchitis Bronchiectasis Asthma Obesity (BMI 30-39.9) Nicotine dependence in remission Neuropathy GERD (gastroesophageal reflux disease) Hypothyroidism Obstructive sleep apnea Hyperlipidemia Surgical History History of coronary artery stent placement (07/28/24) History of transurethral re (more content not included)... Normal [facility] 12 Lead EKGon 07-29-2024 12 Lead EKG [facility] Cardiovascular Services [address] [place] [address] 12 Lead EKG 07/28/24 1056 MR#: [id number] Acct: [id number] Name: APARNA CARRERA Rep #: [id number] : 1945 78 From: Carlos Raza MD Attending Dr: Dr. Carlos Raza MD Status: DIS I NO Ordering Dr: Ludwig Mann MD Date: 4 Location: [facility] Sex: M C Admitted: 07/28/24 Test Reason : POST PCI Blood Pressure : */* mmHG Vent. Rate : 68 BPM Atrial Rate : 68 BPM P-R Int : 168 ms QRS Dur : 100 ms QT Int : 424 ms P-R-T Axes : 37 -61 27 degrees QTcB Int : 450 ms Normal sinus rhythm Left axis deviation Abnormal ECG When compared with ECG of 05-Jun-2021 12:08, No significant change was found Confirmed by CARLOS RAZA MD ([id number]), film or videotape editor EDENILSON MOBLEY ([id number]) on 07/29/2024 2:13:25 PM Referred By: Carlos Raza Confirmed By: CARLOS RAZA MD 07/29/24 1413 Date Carlos Raza MD CC: Dr. Carlos Raza MD; Dr. Melina Agosto MD; Dr. Ludwig Mann MD Signed [facility] CBC-Complete Blood Cnt No Di ffon 07-29-2024 Erythrocyte distribution width (RBC) [Ratio] 13.1 % Normal 11.6-14.6 [facility] Comment on above: Performed By: #### L 100.0500, L500.4050 ####[facility] [address] [place], [address] Hematocrit (Bld) [Volume fraction] 49.7 % Normal 40-54 [facility] Comment on above: Performed By: #### L 100.0500, L500.4050 ####[facility] [address] [place], [address] Hemoglobin (Bld) [Mass/Vol] 16.5 g/dL Normal 13.0-16.5 [facility] Comment on above: Performed By: #### L 100.0500, L500.4050 ####[facility] [address] [place], [address] MCH (RBC) [Entitic mass] 30.2 pg Normal 27.0-32.0 [facility] Comment on above: Performed By: #### L 100.0500, L500.4050 ####[facility] [address] [place], [address] MCHC (RBC) [Mass/Vol] 33.2 g/dL Normal 32-36 [facility] Comment on above: Performed By: #### L 100.0500, L500.4050 ####[facility] [address] [place], [address] MCV (RBC) [Entitic vol] 91.0 fL Normal 80-94 [facility] Comment on above: Performed By: #### L 100.0500, L500.4050 ####[facility] [address] [place], [address] Platelet mean volume (Bld) [Entitic vol] 10.1 fL Normal 6.2-12.0 [facility] Comment on above: Performed By: #### L 100.0500, L500.4050 ####[facility] [address] [place], [address] Platelets (Bld) [#/Vol] 185 10*3/uL Normal 150-450 [facility] Comment on above: Performed By: #### L 100.0500, L500.4050 ####[facility] [address] [place], [address] RBC (Bld) [#/Vol] 5.46 10*6/uL Normal 4.6-6.2 [facility] Comment on above: Performed By: #### L 100.0500, L500.4050 ####[facility] [address] [place], [address] RDW SD 44.1 fl High 35.1-43.9 [facility] Comment on above: Performed By: #### L 100.0500, L500.4050 ####[facility] [address] [place], [address] WBC (Bld) [#/Vol] 8.2 10*3/uL Normal 4.4-11.0 [facility] Comment on above: Performed By: #### L 100.0500, L500.4050 ####[facility] [address] [place], [address] Cardiac Cath Interventionon 07-29-2024 Cardiac Cath Intervention [facility] Imaging Services [address] [place] [address] Cardiac Cath Intervention MR#: [id number] Acct: [id number] Name: APARNA CARRERA Rep #: [id number] : 1945 78 From: Carlos Raza MD PCP: Dr. Melina Agosto MD Status:DIS JU Patient Name: APARNA CARRERA Study Date: 07/28/2024 Performing: Misha Mann MD Ht: 70 inches 177.8 cm : 1945 Wt: 270.4 lbs 122.47 kg Age: 78 Gender: male BSA: 2.37 PROCEDURE(S) PERFORMED IC12-(30305/C9600)DE S W/WO PTCA, SINGLE CORONARY ARTERY CLINICAL PROFILE AND CO-MORBIDITIES Indications: Suspected CAD Heart Failure: None Stress/Imaging Date: 07/22/24 Stress Test with SPECT MPI: Positive Intermediate Risk CAD Presentations: Unstable angina. CONCLUSIONS Successful IRISH to mLCx RECOMMENDATIONS DESCRIPTION OF PROCEDURE The patient arrived to the procedure lab. The risks and benefits of the procedure as well as a full description of our services here and current unavailability of surgical backup were fully explained to the patient and/or their significant other prior to the catheterization. The Timeout was completed, verifying the correct patient and procedure. The patient's procedural site was prepped and draped in the usual fashion. Local anesthetic was given subcutaneously to right radial region with Lidocaine 2% Using a modified Seldinger technique,arterial access was obtained via the right radial artery, a 6Fr sheath was inserted. Left Coronary Artery selective angiography was performed in multiple views using a 5 Fr. 4.0 Lower Brule catheter. Right Coronary Artery selective angiography was then performed in multiple views using a 5 Fr. 4.0 Lower Brule catheter. Left Ventriculography was performed in SIN projection using a 5 Fr. Pigtail catheter. LV to AO pullback pressures were then recorded.The images were reviewed and options discussed. A decision was then made to proceed with an Intervention, IVUS or other adjunct procedure. XB 3 Guide catheter was inserted and engaged into the LCA. {L1} Angiogram performed pre balloon dilatation. BMW 0.014 Guide wire was advanced to the Circumflex. EMERGE 2.5 X 12 Balloon catheter was inserted. WHISPER MS 0.014 Guide wire was advanced to the Circumflex. Balloon catheter was reinserted Balloon catheter was advanced across lesion in the circumflex, mid. Angiogram performed pre balloon dilatation. PTCA balloon inflated at 6 atms for 11 secs. PTCA balloon inflated at 6 atms for 10 secs. Angiogram performed post balloon dilatation. MACY FRONTIER 2.5 X 18 Drug Eluting stent was inserted. Drug Eluting stent was advanced across the lesion in the circumflex, mid. Angiogram performed post stent deployment. The arterial sheath was pulled and a TR Band was applied for hemostasis 10 ml of air INTERVENTION INFORMATION LESION SITE: Circumflex (Mid) Lesion Complexity: High/C, chronic total occlusion: No, lesion at bifurcation: Yes, thrombus present: No, lesion length: 15 mm, culprit lesion: Yes, Previously treated lesion: No, In-stent restenosis: No Pre Stenosis: 80 % Pre intervention JUAN JOSE flow: 3 PROCEDURE: Drug Eluting Stent with pre dilatation. Post Stenosis: 0 % Post intervention JUAN JOSE flow: 3 Lesion Devices: Cordis 6 Fr XB3.0 100cm Guide Catheter Richards .014 190cm BMW [place] Straight Fabricio Sci EMERGE MR 2.50x12 BALLOON Richards .014 190cm HT Whisper MS Straight Medtronic 2.50 x 18 MACY FRONTIER [employer] 6 Thai GuideLiner COMPLICATIONS No Complications PROCEDURE MEDICATIONS Versed 1 mg IV Fentanyl 50 mcg IV Versed 1 mg IV Oxygen: 2 L/min via nasal cannula Aspirin (325mg) 1 Tabs PO 07/28/2024 07:20:16 Brilinta 180 mg PO @ 07/28/2024 09:51:44 Heparin given IA 07/28/2024 08:27:54 Heparin 8000 unit(s) IV 07/28/2024 09:56:39 Verapamil 2.5mg, Ntg 100mcgs, 3000 units of Heparin given IA 07/28/2024 08:27:54 SUMMARY OF HEMODYNAMIC DATA Time AIR REST ECG 07:20:38 AO 111/56 (76) SA 08:43:44 LV 104/1, 7 08:53:16 LV 106/1, 6 08:53:22 LV 110/0, 11 08:53:58 LV 107/1, 6 08:54:05 LVp 121/0, 12 08:54:11 AOp 119/52 (78) 08:54:16 Art 115/47 (70) 09:02:38 AO 125/54 (81) 09:58:14 AO 115/61 (86) 10:22:02 Signed By Misha Mann MD On 07/29/2024 12:10:51 Misha Mann MD 07/29/24 1211 Date Carlos García Signature: Date (if indicated) CC: Dr. Carlos Raza MD; Dr. Melina Agosto MD Date Dictated: 07/28/24822 Date Transcribed: 07/29/241209 Couture Alterations Dressmaker: [place] Signed Normal [facility] Comprehensive Metabolic Prof iqrankechi 07-29-2024 Albumin [Mass/Vol] 3.6 g/dL Normal 3.2-5.0 [facility] Comment on above: Performed By: #### L 100.0500, L500.4050 ####[facility] [address] [place], [address] Albumin/Globulin [Mass ratio] 1.0 {ratio} Normal 0.9-2.4 [facility] Comment on above: Performed By: #### L 100.0500, L500.4050 ####[facility] [address] [place], [address] ALK P 85 U/L Normal 45-117 [facility] Comment on above: Performed By: #### L 100.0500, L500.4050 ####[facility] [address] [place], [address] ALT [Catalytic activity/Vol] 21 U/L Normal 16-61 [facility] Comment on above: Performed By: #### L 100.0500, L500.4050 ####[facility] [address] [place], [address] AST [Catalytic activity/Vol] 14 U/L Low 15-37 [facility] Comment on above: Performed By: #### L 100.0500, L500.4050 ####[facility] [address] [place], [address] Bilirubin [Mass/Vol] 0.70 mg/dL Normal 0.20-1.00 [facility] Comment on above: Result Comment: For patients on eltrombopag therapy, use of Dimension [place] TBIL is not recommended. Performed By: #### L 100.0500, L500.4050 ####[facility] [address] [place], [address] BUN/CRE 23.0 RATIO High 10-20 [facility] Comment on above: Performed By: #### L 100.0500, L500.4050 ####[facility] [address] [place], [address] CA,Total 9.2 mg/dL Normal 8.5-10.1 [facility] Comment on above: Performed By: #### L 100.0500, L500.4050 ####[facility] [address] [place], [address] Chloride [Moles/Vol] 107 mmol/L Normal 98-107 [facility] Comment on above: Performed By: #### L 100.0500, L500.4050 ####[facility] [address] [place], [address] CO2 [Moles/Vol] 28.0 mmol/L Normal 21.0-32.0 [facility] Comment on above: Performed By: #### L 100.0500, L500.4050 ####[facility] [address] [place], [address] Creatinine [Mass/Vol] 0.92 mg/dL Normal 0.70-1.30 [facility] Comment on above: Result Comment: The validity of the calculated GFR GFRAA in patients over 70 years has not been determined. Clinical correlation is essential. Performed By: #### L 100.0500, L500.4050 ####[facility] [address] [place], [address] ECRCL 85.56 ml/min Normal [facility] Comment on above: Performed By: #### L 100.0500, L500.4050 ####[facility] [address] [place], [address] EST GFR - AA 103 mL/min Normal >60 [facility] Comment on above: Result Comment: Afri can [place] GFR Calc Performed By: #### L 100.0500, L500.4050 ####[facility] [address] [place], [address] GAP 7 Normal 5-15 [facility] Comment on above: Performed By: #### L 100.0500, L500.4050 ####[facility] [address] [place], [address] GFR/1.73 sq M.predicted among non-blacks MDRD (S/P/Bld) [Vol rate/Area] 85 mL/min/{1.73_m2} Normal >60 [facility] Comment on above: Result Comment: Non- GFR Calc Performed By: #### L 100.0500, L500.4050 ####[facility] [address] [place], [address] Globulin (S) [Mass/Vol] 3.7 g/dL Normal 2.2-4.2 [facility] Comment on above: Performed By: #### L 100.0500, L500.4050 ####[facility] [address] [place], [address] Glucose [Mass/Vol] 110 mg/dL High 74-106 [facility] Comment on above: Result Comment: Fast ing Glucose result from 100 to 125 mg/dL suggests IMPAIRED HOMEOSTASIS per A.D.A. criteria. Performed By: #### L 100.0500, L500.4050 ####[facility] [address] [place], [address] Potassium [Moles/Vol] 4.0 mmol/L Normal 3.5-5.1 [facility] Comment on above: Performed By: #### L 100.0500, L500.4050 ####[facility] [address] [place], [address] Sodium [Moles/Vol] 141 mmol/L Normal 136-145 [facility] Comment on above: Performed By: #### L 100.0500, L500.4050 ####[facility] [address] [place], [address] T PROT 7.3 g/dL Normal 6.4-8.2 [facility] Comment on above: Performed By: #### L 100.0500, L500.4050 ####[facility] [address] [place], [address] Urea nitrogen [Mass/Vol] 21 mg/dL High 7-18 [facility] Comment on above: Performed By: #### L 100.0500, L500.4050 ####[facility] [address] [place], [address] Discharge Instructionon 07-17 Discharge Instruction [facility] Medical Records Department [address] [place] [address] Instructions for Home/Discharge Instructions 07/29/24 0756 MR#: [id number] Acct: [id number] Name: APARNA CARRERA Rep #: [id number] : 1945 78 From: Carlos Raza MD PCP: Dr. Melina Agosto MD Status:DIS JU Discharge Instructions Diet Discharge Diet: No restrictions Activity Discharge Activity: Return to Normal Activity Additional Activity Instructions:: You must have someone drive you home. Do not drive until instructed by your doctor. You must have someone stay with you all night after your test. Rest in bed or on the couch until the next morning. Limit the number of times you go up and down stairs the day of your test. Apply pressure to the puncture site if you sneeze or cough. Dressing / Incision Call your doctor if your incision/area has: Increased Pain/ Swelling, Increased Redness, Foul Smelling Discharge and Swelling at the incision site Call your doctor if you observe: Fever of 101 or Higher Additional Dressing/Incision Instructions:: Keep the dressing (bandage) on until the next morning. You may then shower, but do not take a tub bath for 5 days after your test. It is normal to have some tenderness and discomfort at the puncture site. Sometimes bruising also occurs. However, if pain, numbness, or coldness occurs below the puncture site (in your leg, toes, arms or fingers) call your doctor at once. You may have a small, marble sized knot at the puncture site. This is normal. Do not rub it. It will go away in 4-6 weeks. Bleeding can occur from the area where the puncture was done. Blood may spurt or drip from the site. If blood spurts, apply pressure right away to stop bleeding and call 911. Although rare, bleeding into the tissue (hematoma) can also occur. If this happens, a large, firm area goose egg under the skin will appear. If any of these occur, lie down as flat as you can and have someone apply firm pressure to the cath site with a gauze pad or a clean washcloth for 10-15 minutes. Call 911 or go to the Emergency Department. Follow Up Care When: The office will call you for follow-up Test Results: Test results from this visit will be discussed in further detail at your follow-up appointment, if applicable. Discharge Plan Admission Admit Date/Time: 07/28/24 10:58 Attending Provider: Carlos Raza Primary Care Provider: Melina Agosto Consulting Providers: Aviva Mayo Discharge Orders/Prescriptions Prescriptions: New Brilinta 90 mg Tablet 90 mg PO BID Qty: 180 2RF Continued calcium carbonate [Tums] 200 mg calcium (500 mg) tablet,chewable 200 mg PO BID PRN (Reason: per pt) albuterol sulfate [ProAir HFA] 90 mcg/actuation HFA aerosol inhaler 2 puff INHALATION Q4H PRN (Reason: shortness of breath or wheezing) Qty: 18 6RF butter balm 1 applic topical DAILY PRN (Reason: rough spots) dutasteride-tamsulos in 0.5-0.4 mg capsule, ER multiphase 24 hr 1 cap PO QDAY cyanocobalamin (vitamin B-12) 1,000 mcg capsule 1,000 mcg PO DAILY Qty: 90 1RF furosemide 40 mg tablet 40 mg PO BID polyethylene glycol 3350 [Miralax] 17 gram Powder In Packet 17 g PO DAILY ibuprofen 600 mg tablet 600 mg PO Q6H PRN (Reason: fever or pain) Qty: 20 0RF cyanocobalamin (vitamin B-12) 1,000 mcg tablet 1,000 mcg PO DAILY cholecalciferol (vitamin D3) [Vitamin D3] 25 mcg (1,000 unit) capsule 2,000 unit PO DAILY levothyroxine 137 mcg tablet 137 mcg PO DAILY Qty: 90 3RF losartan 50 mg tablet 50 mg PO DAILY Qty: 90 3RF oxybutynin chloride 10 mg tablet extended release 24hr 10 mg PO DAILY Qty: 90 3RF Referrals / Follow Up: Melina Agosto MD [Primary Care Provider] - Disposition Disposition (needs filled in before D/C Order can be placed): Home, Self Care 07/29/24 0757 Carlos Raza MD CC: Dr. Melina Agosto MD; STEPHANIE White Signed ADDENDUM by Dr. Carlos Raza MD on 08/03/24 at 1015 Patient was also discharged on aspirin 81 mg a day in addition to the Brilinta. 08/03/24 1015 Carlos Raza MD cc: Dr. Melina Agosto MD; STEPHANIE White * Signed Normal [facility] 12 Lead EKGon 07-28-2024 12 Lead EKG [facility] Cardiovascular Services [address] [place] [address] 12 Lead EKG 07/29/24 0539 MR#: [id number] Acct: [id number] Name: APARNA CARRERA Rep #: [id number] : 1945 78 From: Carlos Raza MD Attending Dr: Dr. Carlos Raza MD Status: DIS I NO Ordering Dr: Ludwig Mann MD Date: 4 Location: [facility] Sex: M C Admitted: 07/28/24 Test Reason : AM EKG Blood Pressure : */* mmHG Vent. Rate : 67 BPM Atrial Rate : 67 BPM P-R Int : 172 ms QRS Dur : 96 ms QT Int : 436 ms P-R-T Axes : 47 -61 38 degrees QTcB Int : 460 ms Normal sinus rhythm Left axis deviation Abnormal ECG When compared with ECG of 28-Jul-2024 10:56, MANUAL COMPARISON REQUIRED DATA IS UNCONFIRMED Confirmed by LUZ MARINA SHAIKH, CARLOS ([id number]), film or videotape editor EDENILSON MOBLEY ([id number]) on 07/29/2024 2:12:44 PM Referred By: Carlos Raza Confirmed By: CARLOS RAZA MD 07/29/24 1412 Date Carlos Raza MD CC: Dr. Carlos Raza MD; Dr. Melina Agosto MD; Dr. Ludwig Mann MD Signed Normal [facility] Cardiac Cath Diagnosticon Cardiac Cath Diagnostic [facility] Imaging Services [address] [place] [address] Cardiac Cath Diagnostic MR#: [id number] Acct: [id number] Name: APARNA CARRERA Rep #: [id number] : 1945 78 From: Carlos Raza MD PCP: Dr. Melina Agosto MD Status:[facility] [place] Patient Name: APARNA CARRERA Study Date: 07/28/2024 Performing: Carlos Raza MD Ht: 70 inches 177.8 cm : 1945 Wt: 270 lbs 122.47 kg Age: 78 Gender: male BSA: 2.37 PROCEDURE(S) PERFORMED DC01-(36710)LHC/COR/ LV CLINICAL PROFILE AND INDICATIONS Indications: Suspected CAD Heart Failure: None Stress/Imaging Date: 07/22/24Stress Test with SPECT MPI: Positive Intermediate Risk CAD Presentations: Unstable angina. CONCLUSIONS Single-vessel disease involving the circumflex artery with minimal disease in the rest of the vessels and preserved ejection fraction RECOMMENDATIONS Referred for immediate PCI DESCRIPTION OF PROCEDURE The patient arrived to the procedure lab. The risks and benefits of the procedure as well as a full description of our services here and current unavailability of surgical backup were fully explained to the patient and/or their significant other prior to the catheterization. The Timeout was completed, verifying the correct patient and procedure. The patient's procedural site was prepped and draped in the usual fashion. Local anesthetic was given subcutaneously to right radial region with Lidocaine 2%. Using a modified Seldinger technique, arterial access was obtained via the right radial artery, a 6Fr sheath was inserted. Left Coronary Artery selective angiography was performed in multiple views using a 5 Fr. 4.0 Lower Brule catheter. Right Coronary Artery selective angiography was then performed in multiple views using a 5 Fr. 4.0 Lower Brule catheter. Left Ventriculography was performed in SIN projection using a 5 Fr. Pigtail catheter. LV to AO pullback pressures were then recorded. CORONARY ANGIOGRAPHY DOMINANCE: Right Dominant LEFT HEART ASSESSMENT Left Ventricular Ejection Fraction: by LV Gram 60 % Normal LV wall motion Normal Left Ventricular systolic function LEFT MAIN: Angiographically normal LEFT ANTERIOR DESCENDING ARTERY: No significant disease noted CIRCUMFLEX ARTERY: Nondominant vessel with a 70 to 80% stenosis of the first obtuse marginal branch. RIGHT CORONARY ARTERY: Mild luminal irregularities COMPLICATIONS PROCEDURE MEDICATIONS Versed 1 mg IV Fentanyl 50 mcg IV Versed 1 mg IV Oxygen: 2 L/min via nasal cannula Aspirin (325mg) 1 Tabs PO @ 07/28/2024 07:20:16 Heparin given IA 07/28/2024 08:27:54 Verapamil 2.5mg, Ntg 100mcgs, 3000 units of Heparin given IA 07/28/2024 08:27:54 SUMMARY OF HEMODYNAMIC DATA Time AIR REST ECG 07:20:38 AO 111/56 (76) SA 08:43:44 LV 104/1, 7 08:53:16 LV 106/1, 6 08:53:22 LV 110/0, 11 08:53:58 LV 107/1, 6 08:54:05 LVp 121/0, 12 08:54:11 AOp 119/52 (78) 08:54:16 Art 115/47 (70) 09:02:38 Signed By Carlos Raza MD On 07/28/2024 09:23:31 Carlos Raza MD 07/28/24923 Date Carlos García Signature: Date (if indicated) CC: Dr. Carlos Raza MD; Dr. Melina Agosto MD Date Dictated: 07/28/24822 Date Transcribed: 07/28/24922 Couture Alterations Dressmaker: [place] Signed Normal [facility] Chest PA and Lateralon 07-23 Chest PA and Lateral [facility] Imaging Services [address] [place] [id number] Chest PA and Lateral MR#: [id number] Acct: [id number] Name: APARNA CRARERA Rep #: [id number] : 1945 M 78 From: Luiz diop MD PCP: Dr. Melina Agosto MD Status: PRE [facility] [place] Study: Chest PA and Lateral Date of Exam: 07/23/24 Exam# [id number] Ordering Dr: Aviva Mayo PA PA [id number] INDICATION: FORMAN EXAMINATION/TECHNIQU E: X-RAY - XR Chest 2 Views COMPARISON: Prior study dated: 04/05/2022 ____ FINDINGS: LINES/DEVICES: None. LUNGS: Elevated left hemidiaphragm. No consolidation, edema or effusion. No pneumothorax. MEDIASTINUM AND CARDIOVASCULAR STRUCTURES: Cardiac silhouette not enlarged. Central airways and mediastinal contour are unremarkable. BONES AND SOFT TISSUES: No acute abnormality. Degenerative change throughout the spine. RAD/Chest PA and Lateral IMPRESSION: No acute pulmonary finding. Chronic elevation of the left hemidiaphragm. Electronically Signed: Luiz Miller MD at 11:18 EST , CC: Dr. Melina Agosto MD; STEPHANIE White Couture Alterations Dressmaker: Signed Normal [facility] Partial Thromboplast Timeon 07-23-2024 aPTT Coag (Bld) [Time] 26.7 s Normal 24.1-36.2 [facility] Comment on above: Performed By: #### L 300.4310 ####[facility] [address] [facility], [address] Stress Reporton 07-22-2024 Stress Report [facility] [address] [place] [address] MR#: [id number] Acct: [id number] Name: APARNA CARRERA Rep #: [id number] : 1945 78 From: Carlos Raza MD Primary Care: Dr. Melina Agosto MD Status: REG CLI Referring Dr: Aviva Mayo PA Sex: M C Stress Test Report Pharmacologic myocardial perfusion stress test. 78-year-old man with a history of chest pain Resting EKG demonstrates sinus rhythm with a rate of 70 bpm. Resting blood pressure is 122/80 mmHg. 0.4 mg of regadenoson was infused per usual protocol followed by rapid intravenous saline flush injection. Continuous EKG monitoring was performed. The maximum heart rate was 82 bpm which was 57% of max impacted heart rate the maximum workload was 1 metabolic equivalent. At rest there were no ST or T wave changes noted to suggest ischemia and at peak infusion nonspecific ST changes were noted which did not meet the criteria for ischemia. No clinical angina is noted. The final blood pressure was 118/70 mmHg. Myocardial perfusion protocol. 10.3 mCi of technetium 99m sestamibi was injected at rest. 0.4 mg of regadenoson was infused per usual protocol. At peak infusion 33.6 mCi of technetium 99m sestamibi was injected stress images were obtained stress and rest images were reconstructed and compared in the short axis vertical long and horizontal long axis. Gated images were also obtained. Perfusion SPECT analysis: Review of the stress images demonstrate normal uptake of tracer noted in all areas of the myocardium. There is a small area in the anterolateral wall with reduced perfusion the resting images similar demonstrated normal uptake of tracer noted in all areas of the myocardium. Mild anterolateral reversibility is noted. Gated SPECT analysis: The gated ejection fraction is 77%. Conclusion: Abnormal pharmacologic myocardial perfusion stress test. Preserved ejection fraction. Mild anterolateral ischemia 07/22/249 Date Carlos Raza MD CC: Dr. Melina Agosto MD; STEPHANIE White Date Dictated: 07/22/241236 Date Transcribed: 07/22/241236 Couture Alterations Dressmaker: CO Signed Normal [facility] BNP,B-Type NATRIURETIC PEPTI Gurwinder 07-15-2024 Natriuretic peptide B (Bld) [Mass/Vol] 9.4 pg/mL Normal 0-100 [facility] Comment on above: Performed By: #### L 500.2500, L503.6620 ####[facility] [address] [place], [place], [id number] Basic Metabolic Profile (BMP )on 07-15-2024 BUN Normal -18 [facility] Comment on above: Result Comment: CMP ORDERED Performed By: #### L 500.2500, L503.6620 ####[facility] [address] [place], [address] BUN/CRE Normal - [facility] Comment on above: Result Comment: CMP ORDERED Performed By: #### L 500.2500, L5.20 ####[facility] [address] [place], [address] CA,Total Normal 8.5-10.1 [facility] Comment on above: Result Comment: CMP ORDERED Performed By: #### L 500.2500, L5.20 ####[facility] [address] [place], [address] CL Normal 98-107 [facility] Comment on above: Result Comment: CMP ORDERED Performed By: #### L 500.2500, L5.20 ####[facility] [address] [place], [address] CO2 Normal 21.0-32.0 [facility] Comment on above: Result Comment: CMP ORDERED Performed By: #### L 500.2500, L5.6619 ####[facility] [address] [place], [address] CREAT,SERUM Normal 0.70-1.30 [facility] Comment on above: Result Comment: CMP ORDERED Performed By: #### L 500.2500, L5.20 ####[facility] [address] [place], [address] EST GFR Normal >60 [facility] Comment on above: Result Comment: CMP ORDERED Performed By: #### L 500.2500, L5.20 ####[facility] [address] [place], [address] EST GFR - AA Normal >60 [facility] Comment on above: Result Comment: CMP ORDERED Performed By: #### L 500.2500, L5.20 ####[facility] [address] [place], [address] GAP Normal 5-15 [facility] Comment on above: Result Comment: CMP ORDERED Performed By: #### L 500.2500, L503.6620 ####[facility] [address] [place], [address] GLU Normal 74-106 [facility] Comment on above: Result Comment: CMP ORDERED Performed By: #### L 500.2500, L503.6620 ####[facility] [address] [place], [address] Potassium Normal 3.5-5.1 [facility] Comment on above: Result Comment: CMP ORDERED Performed By: #### L 500.2500, L503.6620 ####[facility] [address] [place], [address] Basic Metabolic Profile (BMP) Normal 136-145 [facility] Comment on above: Result Comment: CMP ORDERED Performed By: #### L 500.2500, L503.6620 ####[facility] [address] [place], [address] CBC W/Diff, Automatedon 10-3 0-4 Absolute Lymph 2.14 X10 3/uL Normal 0.83-4.51 [facility] Comment on above: Performed By: #### L 506.1000, L501.9520, L501.9985, L501.5200, L500.4050, L500.4100, L503.0105, L100.0100, L501.64249, L506.0400 ####[facility] [address] [place], [address] Absolute Neut 4.3 X10 3/uL Normal 2.0-7.7 [facility] Comment on above: Performed By: #### L 506.1000, L501.9520, L501.9985, L501.5200, L500.4050, L500.4100, L503.0105, L100.0100, L501.02330, L506.0400 ####[facility] [address] [place], [address] Basophils/100 WBC (Bld) 0.7 % Normal 0-1 [facility] Comment on above: Performed By: #### L 506.1000, L501.9520, L501.9985, L501.5200, L500.4050, L500.4100, L503.0105, L100.0100, L501.17411, L506.0400 ####[facility] [address] [place], [place], [phone]) Eosinophils/100 WBC (Bld) 1.5 % Normal 0-5 [facility] Comment on above: Performed By: #### L 506.1000, L501.9520, L501.9985, L501.5200, L500.4050, L500.4100, L503.0105, L100.0100, L501.00356, L506.0400 ####[facility] [address] [place], [place], [phone](344) Erythrocyte distribution width (RBC) [Ratio] 13.1 % Normal 11.6-14.6 [facility] Comment on above: Performed By: #### L 506.1000, L501.9520, L501.9985, L501.5200, L500.4050, L500.4100, L503.0105, L100.0100, L501.67362, L506.0400 ####[facility] [address] [place], [place], [phone](819) Hematocrit (Bld) [Volume fraction] 50.6 % Normal 40-54 [facility] Comment on above: Performed By: #### L 506.1000, L501.9520, L501.9985, L501.5200, L500.4050, L500.4100, L503.0105, L100.0100, L501.44046, L506.0400 ####[facility] [address] [place], [place], [phone](452) Hemoglobin (Bld) [Mass/Vol] 16.7 g/dL High 13.0-16.5 [facility] Comment on above: Performed By: #### L 506.1000, L501.9520, L501.9985, L501.5200, L500.4050, L500.4100, L503.0105, L100.0100, L501.43947, L506.0400 ####[facility] [address] [place], [address] IG% 0.400 Normal 0.0-0.9 [facility] Comment on above: Result Comment: IG% - Immature Granulocytes (promyelocytes, myelocytes and metamyelocytes) > 1% indicates that a LEFT SHIFT is Present. Performed By: #### L 506.1000, L501.9520, L501.9985, L501.5200, L500.4050, L500.4100, L503.0105, L100.0100, L501.83250, L506.0400 ####[facility] [address] [place], [address] Lymphocytes/100 WBC (Bld) 29.2 % Normal 19-41 [facility] Comment on above: Performed By: #### L 506.1000, L501.9520, L501.9985, L501.5200, L500.4050, L500.4100, L503.0105, L100.0100, L501.57251, L506.0400 ####[facility] [address] [place], [address] MCH (RBC) [Entitic mass] 29.8 pg Normal 27.0-32.0 [facility] Comment on above: Performed By: #### L 506.1000, L501.9520, L501.9985, L501.5200, L500.4050, L500.4100, L503.0105, L100.0100, L501.17544, L506.0400 ####[facility] [address] [place], [address] MCHC (RBC) [Mass/Vol] 33.0 g/dL Normal 32-36 [facility] Comment on above: Performed By: #### L 506.1000, L501.9520, L501.9985, L501.5200, L500.4050, L500.4100, L503.0105, L100.0100, L501.00346, L506.0400 ####[facility] [address] [facility] [place], [address] MCV (RBC) [Entitic vol] 90.4 fL Normal 80-94 [facility] Comment on above: Performed By: #### L 506.1000, L501.9520, L501.9985, L501.5200, L500.4050, L500.4100, L503.0105, L100.0100, L501.25984, L506.0400 ####[facility] [address] [facility] [place], [address] Monocytes/100 WBC (Bld) 9.4 % Normal 0-10 [facility] Comment on above: Performed By: #### L 506.1000, L501.9520, L501.9985, L501.5200, L500.4050, L500.4100, L503.0105, L100.0100, L501.67699, L506.0400 ####[facility] [address] [facility] [address] [place], [address] Neutrophils/100 WBC (Bld) 58.8 % Normal 47-70 [facility] Comment on above: Performed By: #### L 506.1000, L501.9520, L501.9985, L501.5200, L500.4050, L500.4100, L503.0105, L100.0100, L501.04313, L506.0400 ####[facility] [address] [place], [address] Nucleated RBC (Bld) [#/Vol] 0 10*3/uL Normal 0-5 [facility] Comment on above: Performed By: #### L 506.1000, L501.9520, L501.9985, L501.5200, L500.4050, L500.4100, L503.0105, L100.0100, L501.19990, L506.0400 ####[facility] [address] [place], [address] Platelet mean volume (Bld) [Entitic vol] 10.3 fL Normal 6.2-12.0 [facility] Comment on above: Performed By: #### L 506.1000, L501.9520, L501.9985, L501.5200, L500.4050, L500.4100, L503.0105, L100.0100, L501.94849, L506.0400 ####[facility] [address] [place], [place], [phone](998) Platelets (Bld) [#/Vol] 178 10*3/uL Normal 150-450 [facility] Comment on above: Performed By: #### L 506.1000, L501.9520, L501.9985, L501.5200, L500.4050, L500.4100, L503.0105, L100.0100, L501.39165, L506.0400 ####[facility] [address] [place], [address] RBC (Bld) [#/Vol] 5.60 10*6/uL Normal 4.6-6.2 [facility] Comment on above: Performed By: #### L 506.1000, L501.9520, L501.9985, L501.5200, L500.4050, L500.4100, L503.0105, L100.0100, L501.90690, L506.0400 ####[facility] [address] [place], [address] RDW SD 43.0 fl Normal 35.1-43.9 [facility] Comment on above: Performed By: #### L 506.1000, L501.9520, L501.9985, L501.5200, L500.4050, L500.4100, L503.0105, L100.0100, L501.84204, L506.0400 ####[facility] [address] [place], [address] WBC (Bld) [#/Vol] 7.3 10*3/uL Normal 4.4-11.0 [facility] Comment on above: Performed By: #### L 506.1000, L501.9520, L501.9985, L501.5200, L500.4050, L500.4100, L503.0105, L100.0100, L501.99029, L506.0400 ####[facility] [address] [place], [address] Cardiology Visit Reporton Cardiology Visit Report [facility] [address] [place], [place] [address] OFFICE VISIT Date of Service: 07/15/24 MR#: [id number] Acct: [id number] Name: APARNA CARRERA Rep #: [id number] : 1945 Provider: STEPHANIE Myers Age/Sex: 78/M Location: [facility] [place] Status: Signed [facility] History of Present Illness Details: Aparna Carrera is a 78-year-old gentleman that presents here today for an urgent cardiovascular follow-up at the request of pulmonary for concerns over congestive heart failure. He has a history of hypertension, hyperlipidemia, obstructive sleep apnea, COPD. He has no documented obstructive coronary disease. He underwent a cardiac catheterization in 2016 it demonstrated preserved ejection fraction of 75%, normal coronary arteries, and normal right heart pressures. Echocardiogram in May 2024 demonstrates an ejection fraction of 65%. Unable to assess diastolic dysfunction. No regional wall motion abnormalities noted. Left and right atrium are normal. Is most recent echocardiogram was also performed in November of this year and demonstrated an ejection fraction of 60% and a pharmacologic stress test demonstrated no evidence of ischemia. He underwent a pulmonary walking test, this did not indicate that he needed oxygen. Oxygen did desaturate to 91%. He is in the process of undergoing additional testing for his sleep apnea. He previously had been noncompliant with his CPAP machine. Pulmonary had asked us to see him for lower extremity edema and increased short of breath. Pt notes that he is SOB with exertion. He is not able to do this things that he did before. He thinks that he does have a chest pressure. It is not brought on by anything in particular. He is not orthopneic. The last several months he has been having lightheaded with positional changes. He does not have any palpitations. He does have some edema. He started using compression socks, this helped somewhat. Pt tells me that he is using losartan 50 mg every other day and losartan/HCTZ 50/12.5 mg every other day. Intake Vital Signs 07/13/24 08:19 07/15/24 09:32 Height 5 ft 10 in 5 ft 10 in Weight: 275 lb 270 lb BMI 39.4 38.7 BP 133/75 H 127/84 H Blood Pressure Location Rt brachial Lt brachial Position Sitting Sitting Respiration 20 H 22 H Pulse 72 87 Pulse Source Monitor Monitor Temp 97.4 F L Temperature Source Temporal Artery Pulse Oximetry (%) 96 96 Oxygen Delivery Method room air Intake Visit Reasons: Per request PMW: CHF see clinical notes Research Professional Required: No Is patient in pain?: No Allergies Penicillins Allergy (Severe, Verified 07/15/24 10:08) Anaphylaxis perfume Allergy (Intermediate, Verified 07/15/24 10:08) Other-triggers asthma attack perflutren (From Definity) Allergy (Verified 07/15/24 10:08) Unknown vancomycin Adverse Reaction (Intermediate, Verified 07/15/24 10:08) Other-htn atorvastatin (From Lipitor) Adverse Reaction (Mild, Verified 07/15/24 10:08) Other-myalgias dobutamine Adverse Reaction (Mild, Verified 07/15/24 10:08) Other-muscle spasm egg Adverse Reaction (Mild, Verified 07/15/24 10:08) WATER BLISTERS fluticasone (From Flonase) Adverse Reaction (Mild, Verified 07/15/24 10:08) Other-nosebleed rosuvastatin (From Crestor) Adverse Reaction (Mild, Verified 07/15/24 10:08) Other-myalgias simvastatin (From Zocor) Adverse Reaction (Mild, Verified 07/15/24 10:08) Other-myalgias Have you fallen in the past year?: No Nurse's Note: no medication list, does not know names of medications [facility] Medical History Protuberant abdomen Abdominal obesity Elective procedure for unacceptable cosmetic appearance Heart disease History of UTI Allergies Uses wheelchair Ambulates with cane Dietary restriction History of diverticulitis On home oxygen therapy History of CHF (congestive heart failure) Loss of hearing Wears glasses Wears partial dentures Wears dentures Alcohol use Thyroid disease Walker as ambulation aid Arthritis Bladder disease Prostate disease High cholesterol Restless legs Back pain Migraine headache History of hiatal hernia Gastric reflux Former smoker COPD (chronic obstructive pulmonary disease) Emphysema, unspecified Chronic cough Shortness of breath on exertion History of edema History of echocardiogram History of stress test Cardiology follow-up encounter Hypertension Essential hypertension Groin mass chipped bones Torn cartilage Lung nodule Dyspnea Cyst of right kidney Asbestos exposure Emphysema lung Bronchitis Bronchiectasis Asthma Obesity (BMI 30-39.9) Nicotine dependence in remission Neuropathy GERD (gastroesophageal reflux disease) Hypothyroidism Obstructive s (more content not included)... Normal [facility] Comprehensive Metabolic Prof ilon 07-15-2024 Albumin [Mass/Vol] 3.9 g/dL Normal 3.2-5.0 [facility] Comment on above: Performed By: #### L 506.1000, L501.9520, L501.9985, L501.5200, L500.4050, L500.4100, L503.0105, L100.0100, L501.56560, L506.0400 ####[facility] [address] [place], [place], [phone] Albumin/Globulin [Mass ratio] 1.1 {ratio} Normal 0.9-2.4 [facility] Comment on above: Performed By: #### L 506.1000, L501.9520, L501.9985, L501.5200, L500.4050, L500.4100, L503.0105, L100.0100, L501.91627, L506.0400 ####[facility] [address] [place], [place], [address] ALK P 83 U/L Normal 45-117 [facility] Comment on above: Performed By: #### L 506.1000, L501.9520, L501.9985, L501.5200, L500.4050, L500.4100, L503.0105, L100.0100, L501.81703, L506.0400 ####[facility] [address] [place], [place], [phone] ALT [Catalytic activity/Vol] 25 U/L Normal 16-61 [facility] Comment on above: Performed By: #### L 506.1000, L501.9520, L501.9985, L501.5200, L500.4050, L500.4100, L503.0105, L100.0100, L501.44129, L506.0400 ####[facility] [address] [place], [place], [address] AST [Catalytic activity/Vol] 11 U/L Low 15-37 [facility] Comment on above: Performed By: #### L 506.1000, L501.9520, L501.9985, L501.5200, L500.4050, L500.4100, L503.0105, L100.0100, L501.65904, L506.0400 ####[facility] [address] [place], [place], [phone] Bilirubin [Mass/Vol] 0.60 mg/dL Normal 0.20-1.00 [facility] Comment on above: Result Comment: For patients on eltrombopag therapy, use of Dimension [place] TBIL is not recommended. Performed By: #### L 506.1000, L501.9520, L501.9985, L501.5200, L500.4050, L500.4100, L503.0105, L100.0100, L501.65865, L506.0400 ####[facility] [address] [place], [address] BUN/CRE 21.1 RATIO High 10-20 [facility] Comment on above: Performed By: #### L 506.1000, L501.9520, L501.9985, L501.5200, L500.4050, L500.4100, L503.0105, L100.0100, L501.38697, L506.0400 ####[facility] [address] [place], [address] CA,Total 9.6 mg/dL Normal 8.5-10.1 [facility] Comment on above: Performed By: #### L 506.1000, L501.9520, L501.9985, L501.5200, L500.4050, L500.4100, L503.0105, L100.0100, L501.62894, L506.0400 ####[facility] [address] [place], [address] Chloride [Moles/Vol] 100 mmol/L Normal 98-107 [facility] Comment on above: Performed By: #### L 506.1000, L501.9520, L501.9985, L501.5200, L500.4050, L500.4100, L503.0105, L100.0100, L501.19618, L506.0400 ####[facility] [address] [place], [address] CO2 [Moles/Vol] 29.0 mmol/L Normal 21.0-32.0 [facility] Comment on above: Performed By: #### L 506.1000, L501.9520, L501.9985, L501.5200, L500.4050, L500.4100, L503.0105, L100.0100, L501.73589, L506.0400 ####[facility] [address] [place], [place], [phone](434) Creatinine [Mass/Vol] 1.00 mg/dL Normal 0.70-1.30 [facility] Comment on above: Result Comment: The validity of the calculated GFR GFRAA in patients over 70 years has not been determined. Clinical correlation is essential. Performed By: #### L 506.1000, L501.9520, L501.9985, L501.5200, L500.4050, L500.4100, L503.0105, L100.0100, L501.48364, L506.0400 ####[facility] [address] [place], [address](869) EST GFR - AA 93 mL/min Normal >60 [facility] Comment on above: Result Comment: Afri can [place] GFR Calc Performed By: #### L 506.1000, L501.9520, L501.9985, L501.5200, L500.4050, L500.4100, L503.0105, L100.0100, L501.66718, L506.0400 ####[facility] [address] [place], [address](821) GAP 8 Normal 5-15 [facility] Comment on above: Performed By: #### L 506.1000, L501.9520, L501.9985, L501.5200, L500.4050, L500.4100, L503.0105, L100.0100, L501.25084, L506.0400 ####[facility] [address] [place], [address](909) GFR/1.73 sq M.predicted among non-blacks MDRD (S/P/Bld) [Vol rate/Area] 77 mL/min/{1.73_m2} Normal >60 [facility] Comment on above: Result Comment: Non- GFR Calc Performed By: #### L 506.1000, L501.9520, L501.9985, L501.5200, L500.4050, L500.4100, L503.0105, L100.0100, L501.14335, L506.0400 ####[facility] [address] [place], [address] Globulin (S) [Mass/Vol] 3.6 g/dL Normal 2.2-4.2 [facility] Comment on above: Performed By: #### L 506.1000, L501.9520, L501.9985, L501.5200, L500.4050, L500.4100, L503.0105, L100.0100, L501.98896, L506.0400 ####[facility] [address] [place], [place], [phone] Glucose [Mass/Vol] 127 mg/dL High 74-106 [facility] Comment on above: Result Comment: Fast ing Glucose result greater than or equal to 126 mg/dL suggests DIABETES MELLITUS per A.D.A. criteria. Performed By: #### L 506.1000, L501.9520, L501.9985, L501.5200, L500.4050, L500.4100, L503.0105, L100.0100, L501.65055, L506.0400 ####[facility] [address] [place], [place], [phone] Potassium [Moles/Vol] 3.7 mmol/L Normal 3.5-5.1 [facility] Comment on above: Performed By: #### L 506.1000, L501.9520, L501.9985, L501.5200, L500.4050, L500.4100, L503.0105, L100.0100, L501.39753, L506.0400 ####[facility] [address] [place], [address] Sodium [Moles/Vol] 137 mmol/L Normal 136-145 [facility] Comment on above: Performed By: #### L 506.1000, L501.9520, L501.9985, L501.5200, L500.4050, L500.4100, L503.0105, L100.0100, L501.20024, L506.0400 ####[facility] [address] [place], [address] T PROT 7.5 g/dL Normal 6.4-8.2 [facility] Comment on above: Performed By: #### L 506.1000, L501.9520, L501.9985, L501.5200, L500.4050, L500.4100, L503.0105, L100.0100, L501.54665, L506.0400 ####[facility] [address] [place], [address] Urea nitrogen [Mass/Vol] 21 mg/dL High 7-18 [facility] Comment on above: Performed By: #### L 506.1000, L501.9520, L501.9985, L501.5200, L500.4050, L500.4100, L503.0105, L100.0100, L501.41723, L506.0400 ####[facility] [address] [place], [address] Free T3on 07-15-2024 Free T3 [Mass/Vol] 2.8 pg/mL Normal 2.18-3.98 [facility] Comment on above: Performed By: #### L 506.1000, L501.9520, L501.9985, L501.5200, L500.4050, L500.4100, L503.0105, L100.0100, L501.93431, L506.0400 ####[facility] [address] [place], [address] Hemoglobin A1con 07-15-2024 HbA1c (Bld) [Mass fraction] 5.9 % High 3.8-5.6 [facility] Comment on above: Result Comment: Norm al < 5.7 % Prediabetic 5.7 - 6.4 % Diabetic >or= 6.5 % Please note range changes. Performed By: #### L 506.1000, L501.9520, L501.9985, L501.5200, L500.4050, L500.4100, L503.0105, L100.0100, L501.65742, L506.0400 ####[facility] [address] [place], [address] Lipid Profileon 07-15-2024 Cholesterol [Mass/Vol] 206 mg/dL High 200 [facility] Comment on above: Result Comment: <200 mg/dL Desirable 200-240 mg/dL Borderline >240 mg/dL High Risk Performed By: #### L 506.1000, L501.9520, L501.9985, L501.5200, L500.4050, L500.4100, L503.0105, L100.0100, L501.22529, L506.0400 ####[facility] [address] [place], [address] Cholesterol in HDL [Mass/Vol] 50 mg/dL Normal [facility] Comment on above: Result Comment: The drugs N-Acetylcysteine and Metamizole may falsely depress this assay. Reference Range HDL <40 mg/dL Low HDL Cholesterol HDL >or= 60 mg/dL High HDL Cholesterol Performed By: #### L 506.1000, L501.9520, L501.9985, L501.5200, L500.4050, L500.4100, L503.0105, L100.0100, L501.18743, L506.0400 ####[facility] [address] [place], [address] Cholesterol in LDL [Mass/Vol] 117 mg/dL Normal 0-130 [facility] Comment on above: Performed By: #### L 506.1000, L501.9520, L501.9985, L501.5200, L500.4050, L500.4100, L503.0105, L100.0100, L501.08455, L506.0400 ####[facility] [address] [place], [address] Cholesterol in VLDL [Mass/Vol] 39 mg/dL Normal 5-40 [facility] Comment on above: Performed By: #### L 506.1000, L501.9520, L501.9985, L501.5200, L500.4050, L500.4100, L503.0105, L100.0100, L501.04617, L506.0400 ####[facility] [address] [place], [address] Triglyceride [Mass/Vol] 194 mg/dL Normal [facility] Comment on above: Result Comment: The drugs N-Acetylcysteine and Metamizole may falsely depress this assay. Serum Triglycerides Reference Interval Normal <150 mg/dL Borderline high 150 - 199 mg/dL High 200 - 499 mg/dL Very High > or = 500 mg/dL Performed By: #### L 506.1000, L501.9520, L501.9985, L501.5200, L500.4050, L500.4100, L503.0105, L100.0100, L501.97082, L506.0400 ####[facility] [address] [place], [address] Magnesiumon 07-15-2024 Magnesium [Mass/Vol] 2.1 mg/dL Normal 1.6-2.6 [facility] Comment on above: Performed By: #### L 506.1000, L501.9520, L501.9985, L501.5200, L500.4050, L500.4100, L503.0105, L100.0100, L501.78624, L506.0400 ####[facility] [address] [place], [place], [phone]) T4 Free Directon 07-15-2024 T4 FREE DIRECT 1.09 ng/dL Normal 0.76-1.46 [facility] Comment on above: Performed By: #### L 506.1000, L501.9520, L501.9985, L501.5200, L500.4050, L500.4100, L503.0105, L100.0100, L501.29674, L506.0400 ####[facility] [address] [place], [place], [id number] Thyroid Stim Hormone (TSH)on 07-15-2024 TSH 0.386 uIU/mL Normal 0.358-3.740 [facility] Comment on above: Performed By: #### L 506.1000, L501.9520, L501.9985, L501.5200, L500.4050, L500.4100, L503.0105, L100.0100, L501.24159, L506.0400 ####[facility] [address] [place], [place], [phone]) Vitamin B12on 07-15-2024 Cobalamin (Vitamin B12) [Mass/Vol] 716 pg/mL Normal 211-911 [facility] Comment on above: Performed By: #### L 506.1000, L501.9520, L501.9985, L501.5200, L500.4050, L500.4100, L503.0105, L100.0100, L501.12422, L506.0400 ####[facility] [address] [place], [place], [phone] Vitamin D,25 Hydroxyon 07-15 Vitamin D 25-OH 20.4 ng/mL Normal [facility] Comment on above: Result Comment: Jennifer min D 25(OH) Status Range Deficiency <20 ng/mL (50nmol/L) Insufficiency 20 - 30 ng/mL (50 - 75 nmol/L) Sufficiency 30 - 100 ng/mL (75 - 250 nmol/L) Toxicity >100 ng/mL (>250 nmol/L) Performed By: #### L 506.1000, L501.9520, L501.9985, L501.5200, L500.4050, L500.4100, L503.0105, L100.0100, L501.53121, L506.0400 ####[facility] [address] [place], [address] Pulmonary Visit Reporton Pulmonary Visit Report [facility] [address] [place] [address] OFFICE VISIT Date of Service: 07/13/24 MR#: [id number] Acct: [id number] Name: APARNA CARRERA Rep #: [id number] : 1945 Provider: RADHA Esquivel Age/Sex: 78/M Location: [facility] Status: Signed Assessment and Plan Assessment and Plan (1) Asthma: Status: Chronic Qualifiers: Asthma severity: mild Asthma persistence: intermittent Asthma complication type: uncomplicated Qualified Code(s): J45.20 - Mild intermittent asthma, uncomplicated Plan: No signs of exacerbation of asthma today. He is not currently requiring maintenance medications. No additional testing at this time. Contact the office with any signs of new or worsening symptoms. Follow-up in 3 months. (2) Obstructive sleep apnea: Status: Chronic Comment: Noncompliant with therapy Plan: Patient reports that he had a positive sleep test about 15 years ago. He states that he was unable to tolerate the large mask and loud machine. He is willing to be retested if the stuff is quiet and more comfortable. The patient reports that he is not willing to sleep on his back during testing because he never sleeps on his back. I suspect that some of his symptoms that he is experiencing are related to his untreated sleep apnea. He is agreeable to testing and treatment indicated. Plan for him to follow-up here in the office in 3 months, at which time anticipate he will be on therapy for approximately 6 weeks. He has been encouraged to contact the office with any new or worsening symptoms in the meantime. (3) Morbid obesity due to excess calories: Status: Chronic Plan: Deteriorated. The patient has put on almost 10 pounds since last office visit. Encourage weight loss. (4) Diastolic CHF with preserved left ventricular function, NYHA class 2: Status: Suspected Plan: Complicates exam, plan, care and prognosis. 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 He does admit to lower extremity edema. He eats prepackaged meals that are likely high in sodium. He is compliant with compression stockings. Orders: Orders Split Night Sleep Study Today G47.10 - Hypersomnia, unspecified Plan Details Follow Up: 3 Months ([facility]) HPI 6 wk fu Chief Complaint: Test results HPI Comments Details: This patient presents to the office today follow-up on his asthma, bronchiectasis and obstructive sleep apnea for which he is noncompliant. He ambulatory with the use of a cane. He is on room air. He has not been seen in the ED or urgent care for any respiratory illnesses since his last office visit. He has not required any antibiotics or prednisone for any breathing problems. He is not currently on any maintenance inhalers. He does not currently routinely use albuterol. 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 He continues to have shortness of breath on exertion. He reports an occasional cough productive of clear to light khan-colored sputum. He denies any hemoptysis. He occasionally experience chest tightness but denies any wheezing, chest pain or palpitations. He has not had any fever, chills or body aches. He does check his oxygen saturations occasionally. He states that typically the are 94 to 95%. Continues noncompliance with Pap therapy. He admits that he does not feel rested when he wakes up in the morning. He sleeps about 3 or 4 hours nightly. He was not pleased with his last sleep test as he does not believe in those things. He reports that he was forced to sleep on his back, and the patient reports that he never sleeps on his back. He is agreeable to repeating a sleep test if he is not forced to sleep on his back. He does have nocturia. He has dry mouth all the time. He does snore. He does nap frequently. Test results personally viewed with patient: Echocardiogram completed on June 11, 2024. EF of 65%. Unable to assess diastolic dysfunction. 6-minute walk test completed on June 16 2024. The patient was able to ambulate total of 612 feet over the course of 6 minutes. He did not become hypoxic and does not currently require any supplemental oxygen. STOP-BANG Assessment: 1. Do you snore? Y 2. Are you frequently tired during the day? Y 3. Have you been observed gasping or choking while asleep? Y 4. Do you have high blood pressure? Y 5. BMI - greater than 35kg/m2? Y 6. Age - over 50 years old? Y 7. Neck Circumference - greater than 37 cm for females or 40 cm for males? Y 8. Gender - male? Y Total STOP-BANG score = 8 which indicates HIGH risk for obstructive sleep apnea (yes to 3 or more questions = high risk of sleep apnea). Intake Vital Signs 06/02/24 07:52 06/16/24 13:38 07/13/24 08:19 Height 5 ft 10 in 5 ft 10 in 5 ft 10 in Weight: (more content not included)... Normal [facility] 6 Minute Walk Teston 024 6 Minute Walk Test y [facility] [address] [place] [address] MR#: [id number] Acct: [id number] Name: APARNA CARRERA Rep #: [id number] : 1945 78 From: Codey Cancino DO Referring Dr: Penny Esquivel SALESPERSON ART OBJECTS SALESPERSON ART OBJECTS-C Status: REG CLI Location: PSN Date: Sex: M C PSN 6 Minute Walk Test 6 Minute Walk Test 6 Minute Walk Test: 6 Minute Walk Test PSN:6-Minute Walk Test Start: 06/16/24 13:38 Freq: Status: Active Protocol: [id number].[id number] Document 06/16/24 13:38 EW (Rec: 06/16/24 13:41 EW [id number]) 6 Minute Walk Test Date Performed 06/16/24 Time Performed 13:00 Height 5 ft 10 in Weight: 255 lb Weight in Pounds 255.0 lbs Assistive device used: Cane Pre-test Oxygen Delivery Method Room Air Pulse Ox (%) 93 Pulse Rate (60-100 beats/min) 107 H Dyspnea Richard Scale (0-10) 3 Exertion Richard Scale (6-20) 9 1st minute Oxygen Delivery Method Room Air Pulse Ox (%) 92 Pulse Rate (60-100 beats/min) 107 H 2nd minute Oxygen Delivery Method Room Air Pulse Ox (%) 91 Pulse Rate (60-100 beats/min) 105 H 3rd minute Oxygen Delivery Method Room Air Pulse Ox (%) 91 Pulse Rate (60-100 beats/min) 107 H 4th minute Oxygen Delivery Method Room Air Pulse Ox (%) 93 Pulse Rate (60-100 beats/min) 108 H 5th minute Oxygen Delivery Method Room Air Pulse Ox (%) 92 Pulse Rate (60-100 beats/min) 108 H 6th minute Oxygen Delivery Method Room Air Pulse Ox (%) 93 Pulse Rate (60-100 beats/min) 104 H Post-test Oxygen Delivery Method Room Air Pulse Ox (%) 94 Pulse Rate (60-100 beats/min) 93 Dyspnea Richard Scale (0-10) 3 Exertion Richard Scale (6-20) 14 Full Laps Walked 10 Partial Lap, Number of Tiles Walked 22 Total Distance Walked (ft) 612 Interpretation Interpretation: The patient ambulated 612 feet over the course of 6 minutes beginning on room air with the use of a cane. Pretesting oxygen saturation was noted to be 93% on room air. With ambulation, the wilbur oxygen saturation was 91%. Although there was evidence of impaired walk distance, there was no significant exertional oxygen desaturation. Recommendations Recommendations: There is no indication for the use of supplemental oxygen at this time. 06/22/241016 Date Codey Cancino DO CC: Date Dictated: 06/22/241016 Date Transcribed: 06/22/241016 Couture Alterations Dressmaker: Dr. Codey Cancino DO Signed Normal [facility] Echo, Limited Studyon 2023 Echo, Limited Study [facility] [address] [place] [address] Echo, Limited Study 06/11/24 1259 MR#: [id number] Acct: [id number] Name: APARNA CARRERA Rep #: [id number] : 1945 78 From: Ludwig Mann MD Attending Dr: Penny Esquivel NP-C Status: RE G CLI Ordering Dr: Penny Esquivel SALESPERSON ART OBJECTS SALESPERSON ART OBJECTS-C Date: Location: [facility] Sex: M C Admitted: Reason For Study: DYSPNEA Procedure This was a 2D Doppler, Color Flow transthoracic echocardiogram. The study was technically difficult. Definity deferred due to patient allergy. Exam performed in department. Left Ventricle Normal LV size. The estimated ejection fraction is 65 %. Unable to assess diastolic dysfunction. No regional wall motion abnormalities noted. Right Ventricle Normal RV size. Normal systolic function. Atria The left and right atria are normal. Mitral Valve There is no mitral valve stenosis. Not assessed. Tricuspid Valve There is no tricuspid stenosis. Not assessed. Aortic Valve Mild diffuse aortic valve thickening. Pericardium/Pleural No pericardial effusion. MMode/2D Measurements Calculations LAV(MOD-bp): 41.9 ml LA A4 area: 15.5 cm2 RA A4 area: 14.8 cm2 LAV(MOD-bp) Indexed: 18.1 ml/m2 LAV(MOD-sp2): 49.5 ml LAV(MOD-sp4): 33.5 ml ECHO/Echo, Limited Study Interpretation Summary The estimated ejection fraction is 65 %. Ordering Physician: Penny Esquivel Referring Physician: Penny Esquivel Performed By: Yoanna Llanos and Student 06/11/24 1423 Date Ludwig aMnn MD CC: RADHA Esquivel; Dr. Melina Agosto MD Date Dictated: 06/11/24 1259 Date Transcribed: 06/11/24 1423 Couture Alterations Dressmaker: Signed Normal [facility] Pulmonary Visit Reporton Pulmonary Visit Report [facility] [address] [place] [address] OFFICE VISIT Date of Service: 06/02/24 MR#: [id number] Acct: [id number] Name: APARNA CARRERA Rep #: [id number] : 1945 Provider: RADHA Esquivel Age/Sex: 78/M Location: [facility] Status: Signed Assessment and Plan Assessment and Plan (1) Diastolic CHF with preserved left ventricular function, NYHA class 2: Status: Suspected Plan: Does not currently require supplemental oxygen. Given the fact he complains of shortness of breath on exertion, specifically most prominent when using my arms for anything, sending the patient for additional testing. He is agreeable to a walking oximetry and an echocardiogram. Return to the office once test results are available to discuss. (2) Bronchiectasis: Status: Chronic Qualifiers: Bronchiectasis type: uncomplicated Qualified Code(s): J47.9 - Bronchiectasis, uncomplicated Plan: Does not appear to be in exacerbation. Not requiring maintenance medication. (3) Asthma: Status: Chronic Qualifiers: Asthma complication type: uncomplicated Asthma persistence: intermittent Asthma severity: mild Qualified Code(s): J45.20 - Mild intermittent asthma, uncomplicated Plan: Stable. Does not require maintenance medications. (4) Obstructive sleep apnea: Status: Chronic Comment: Noncompliant with therapy Plan: Noncompliant with Pap therapy. Orders: Orders Echo Complete W/ Contrast Today R06.02 - Shortness of breath Simple Pulmonary Exercise Test Today R06.02 - Shortness of breath Influenza Immunization Today J44.9 - Chronic obstructive pulmonary disease, unspecified, J45.20 - Mild intermittent asthma, uncomplicated Plan Details Follow Up: 6 Weeks ([facility]) HPI 1 Y FU Chief Complaint: Shortness of breath HPI Comments Details: This patient presents to the office today follow-up on his asthma, bronchiectasis and obstructive sleep apnea for which he is noncompliant. He ambulatory with the use of a cane. He has not been seen in the ED or urgent care for any respiratory illnesses since his last office visit. He has not required any antibiotics or prednisone for any breathing problems. He is not currently on any maintenance inhalers. He does not currently routinely use albuterol. He admits that he used to more frequently after having his pulmonary function test, just to see if it worked. Unfortunately, the patient did not notice any symptom relief with the use of albuterol. He continues to have shortness of breath on exertion only. Specifically, he states that when he is doing anything with my arms, like lifting and putting groceries away. He reports an occasional cough productive of clear to light khan-colored sputum. He denies any hemoptysis. He occasionally experience chest tightness but denies any wheezing, chest pain or palpitations. He has not had any fever, chills or body aches. He does check his oxygen saturations occasionally. He states that typically the are 94 to 95%. Continues noncompliance with Pap therapy. Test results personally viewed with patient: Pulmonary function test completed on April 28, 2024. Impression is grossly normal. Intake Vital Signs 06/03/23 10:47 03/09/24 11:19 06/02/24 07:52 Height 5 ft 10 in 5 ft 10 in 5 ft 10 in Weight: 267 lb BMI 38.2 BP 118/76 Blood Pressure Location Rt brachial Position Sitting Pulse 80 Pulse Source Monitor Temp 97.0 F L Temperature Source Temporal Artery Pulse Oximetry (%) 94 Oxygen Delivery Method room air Intake Visit Reasons: 1 Y FU Chief Complaint: right hip pain Research Professional Required: No Accompanied by: Self Allergies Penicillins Allergy (Severe, Verified 06/02/24 10:29) Anaphylaxis perfume Allergy (Intermediate, Verified 06/02/24 10:29) Other-triggers asthma attack perflutren (From Definity) Allergy (Verified 06/02/24 10:29) Unknown vancomycin Adverse Reaction (Intermediate, Verified 06/02/24 10:29) Other-htn atorvastatin (From Lipitor) Adverse Reaction (Mild, Verified 06/02/24 10:29) Other-myalgias dobutamine Adverse Reaction (Mild, Verified 06/02/24 10:29) Other-muscle spasm egg Adverse Reaction (Mild, Verified 06/02/24 10:29) WATER BLISTERS fluticasone (From Flonase) Adverse Reaction (Mild, Verified 06/02/24 10:29) Other-nosebleed rosuvastatin (From Crestor) Adverse Reaction (Mild, Verified 06/02/24 10:29) Other-myalgias simvastatin (From Zocor) Adverse Reaction (Mild, Verified 06/02/24 10:29) Other-myalgias Medications ???Medication ???Instructions ???Recorded ???Confirmed ???Type polyethylene glycol 3350 17 gram 17 g PO DAILY 06/02/21 06/02/24 History oral powder packet (Miralax) calcium carbonate (Tums) 200 mg PO BID PRN per pt 06/05/21 06/02/24 History (more content not included)... Normal [facility] MR/BMS.BETHELBon 03-09-2024 MR/BMS.B [facility] [address] [place] [id number] OFFICE VISIT Date of Service: 03/09/24 MR#: [id number] Acct: [id number] Name: APARNA CARRERA Rep #: [id number] : 1945 Provider: Dr. Melina varner MD Age/Sex: 78/M Location: [facility] Status: Signed Intake Vital Signs 09/25/23 10:57 03/09/24 11:19 Height 5 ft 10 in 5 ft 10 in Weight: 271 lb 6 oz 276 lb BMI 38.9 39.6 BP 109/67 129/65 H Blood Pressure Location Lt brachial Lt brachial Position Sitting Sitting Respiration 18 16 Pulse 94 87 Pulse Source Monitor Monitor Temp 97.4 F L 97.5 F L Temp Source Temporal Temporal Pulse Oximetry (%) 91 98 Oxygen Delivery Method room air room air Intake Visit Reasons: Rt Hip Pain, Unsteady, Fatigue Chief Complaint: right hip pain Research Professional Required: No Accompanied by: Self Is patient in pain?: Yes (right hip ) Pain scale (1-10): 5 Allergies Penicillins Allergy (Severe, Verified 03/09/24 11:12) Anaphylaxis perfume Allergy (Intermediate, Verified 03/09/24 11:12) Other-triggers asthma attack perflutren (From [place]) Allergy (Verified 03/09/24 11:12) Unknown vancomycin Adverse Reaction (Intermediate, Verified 03/09/24 11:12) Other-htn atorvastatin (From Lipitor) Adverse Reaction (Mild, Verified 03/09/24 11:12) Other-myalgias dobutamine Adverse Reaction (Mild, Verified 03/09/24 11:12) Other-muscle spasm egg Adverse Reaction (Mild, Verified 03/09/24 11:12) WATER BLISTERS fluticasone (From Flonase) Adverse Reaction (Mild, Verified 03/09/24 11:12) Other-nosebleed rosuvastatin (From Crestor) Adverse Reaction (Mild, Verified 03/09/24 11:12) Other-myalgias simvastatin (From Zocor) Adverse Reaction (Mild, Verified 03/09/24 11:12) Other-myalgias Medications ???Medication ???Instructions ???Recorded ???Confirmed ???Type polyethylene glycol 3350 17 gram 17 g PO DAILY 06/02/21 03/09/24 History oral powder packet (Miralax) calcium carbonate (Tums) 200 mg PO BID PRN per pt 06/05/21 03/09/24 History butter balm 1 applic topical DAILY PRN rough 08/03/21 03/09/24 History spots ibuprofen 600 mg tablet 600 mg PO Q6H PRN fever or pain 04/27/22 03/09/24 Rx #20 tabs albuterol sulfate 90 mcg/actuation 2 puff inhalation Q4H PRN 06/05/22 03/09/24 Rx aerosol inhaler (ProAir HFA) shortness of breath or wheezing #18 grams semaglutide 0.25 mg or 0.5 mg (2 0.5 mg (0.736 mL) subcut QWEEK #3 04/25/23 03/09/24 Rx mg/3 mL) subcutaneous pen injector mL (Ozempic) levothyroxine 137 mcg tablet 137 mcg PO DAILY #90 tabs 11/12/23 03/09/24 Rx losartan 50 mg tablet 50 mg PO DAILY #90 tabs 11/12/23 03/09/24 Rx oxybutynin chloride 10 mg 10 mg PO DAILY #90 tabs 11/12/23 03/09/24 Rx tablet,extended release 24 hr cyanocobalamin (vitamin B-12) 1,000 mcg PO DAILY #90 caps 03/09/24 03/09/24 Rx 1,000 mcg capsule furosemide 40 mg tablet 40 mg PO .qd 03/09/24 History Have you fallen in the past year?: No PFSH Medical History Protuberant abdomen Abdominal obesity Elective procedure for unacceptable cosmetic appearance Heart disease History of UTI Allergies Uses wheelchair Ambulates with cane Dietary restriction History of diverticulitis On home oxygen therapy History of CHF (congestive heart failure) Loss of hearing Wears glasses Wears partial dentures Wears dentures Alcohol use Thyroid disease Walker as ambulation aid Arthritis Bladder disease Prostate disease High cholesterol Restless legs Back pain Migraine headache History of hiatal hernia Gastric reflux Former smoker COPD (chronic obstructive pulmonary disease) Emphysema, unspecified Chronic cough Shortness of breath on exertion History of edema History of echocardiogram History of stress test Cardiology follow-up encounter Hypertension Essential hypertension Groin mass chipped bones Torn cartilage Lung nodule Dyspnea Cyst of right kidney Asbestos exposure Emphysema lung Bronchitis Bronchiectasis Asthma Obesity (BMI 30-39.9) Nicotine dependence in remission Neuropathy GERD (gastroesophageal reflux disease) Hypothyroidism Obstructive sleep apnea Hyperlipidemia Surgical History History of transurethral resection of bladder tumor (TURBT) ( 04/2022) History of colonoscopy History of herniorrhaphy S/P trigger finger release pin placement finger surgery History of repair of rotator cuff History of right and left heart catheterization (09/28/16) Family History Father CAD (coronary artery disease) Other Asthma Social History Smoking Status: Former smoker pack (more content not included)... Normal [facility] No Panel InformationOrdered By: Melina Agosto on 12-04-2023 Prostate Specific Antigen Screen 0.14 ng/mL 0.00-4.00 [facility] Comment on above: This test was perfor med using the TPSA assay method for the[employer] chemistry system. Values obtained with differentassay methods cannot be used interchangably.When changing PSA assays in the course of monitoring apatient, additional sequential testing should be carriedout to confirm baseline values. Absolute lymphocyte countOrd ered By: Melina Agosto on 10-28-2023 Lymphocytes Auto (Unsp spec) [#/Vol] 2.37 10*3/uL 0.83-4.51 [facility] Automated lymphocyte count a s percentage of total leukocytesOrdered By: Melina Agosto on 10-28-2023 Lymphocytes/100 WBC Auto (Unsp spec) 35.5 % 19-41 [facility] Basophil percentageOrdered B y: Melina Agosto on 10-28-2023 Basophils/100 WBC (Bld) 0.7 % 0-1 [facility] Eosinophils/100 WBC (Bld) 2.2 % 0-5 [facility] Hemoglobin (Bld) [Mass/Vol] 17.3 g/dL 13.0-16.5 [facility] Monocytes/100 WBC (Bld) 9.0 % 0-10 [facility] Neutrophils (Bld) [#/Vol] 3.5 10*3/uL 2.0-7.7 [facility] Neutrophils/100 WBC (Bld) 52.2 % 47-70 [facility] WBC (Bld) [#/Vol] 6.7 10*3/uL 4.4-11.0 [facility] Determination of erythrocyte mean corpuscular volume (MCV)Ordered By: Melina Agosto on 10-28-2023 MCV (RBC) [Entitic vol] 92.5 fL 80-94 [facility] Erythrocyte distribution wid th ratioOrdered By: Melina Agosto on 10-28-2023 Erythrocyte distribution width (RBC) [Ratio] 13.4 % 11.6-14.6 [facility] Erythrocyte distribution wid th standard deviationOrdered By: Melina Agosto on 10-28-2023 Erythrocyte distribution width (RBC) [Entitic vol] 45.7 fL 35.1-43.9 [facility] Hematocrit Auto (Bld) [Volum e fraction]Ordered By: Melina Agosto on 10-28-2023 Hematocrit (Bld) [Volume fraction] 53.0 % 40-54 [facility] Immature granulocytes/100 WB C Auto (Bld)Ordered By: Melina Agosto on 10-28-2023 Immature granulocytes/100 WBC (Bld) 0.400 % 0.0-0.9 [facility] Comment on above: IG% - Immature Granu locytes (promyelocytes, myelocytes and metamyelocytes) > 1% indicates that a LEFT SHIFT is Present. Laboratory - Hematology and Cell countsOrdered By: Melina Agosto on 10-28-2023 MCH (RBC) [Entitic mass] 30.2 pg 27.0-32.0 [facility] MCHC (RBC) [Mass/Vol] 32.6 g/dL 32-36 [facility] Nucleated RBC/100 WBC (Bld) [Ratio] 0 % 0-5 [facility] Platelet mean volume (Bld) [Entitic vol] 10.7 fL 6.2-12.0 [facility] Platelets (Bld) [#/Vol] 164 10*3/uL 150-450 [facility] RBC Auto (Bld) [#/Vol]Ordere d By: Melina Agosto on 10-28-2023 RBC (Bld) [#/Vol] 5.73 10*6/uL 4.6-6.2 [facility] Absolute lymphocyte countOrd ered By: Melina Agosto on 09-25-2023 Lymphocytes Auto (Unsp spec) [#/Vol] 2.64 10*3/uL 0.83-4.51 [facility] Basophil percentageOrdered B y: Melina Agosto on 09-25-2023 Basophils/100 WBC (Bld) 0.6 % 0-1 [facility] Bilirubin [Mass/Vol] 0.70 mg/dL 0.20-1.00 [facility] Comment on above: For patients on eltr ombopag therapy, use of Dimension [place] TBIL is not recommended. Chloride [Moles/Vol] 104 mmol/L 98-107 [facility] Cholesterol [Mass/Vol] 179 mg/dL <200 [facility] Comment on above: <200 mg/dL Desirable 200-240 mg/dL Borderline >240 mg/dL High Risk Eosinophils/100 WBC (Bld) 1.5 % 0-5 [facility] Glucose [Mass/Vol] 103 mg/dL 74-106 [facility] Comment on above: Fasting Glucose resu lt from 100 to 125 mg/dL suggests IMPAIRED HOMEOSTASIS per A.D.A. criteria. Neutrophils (Bld) [#/Vol] 4.3 10*3/uL 2.0-7.7 [facility] Neutrophils/100 WBC (Bld) 53.7 % 47-70 [facility] Potassium [Moles/Vol] 3.7 mmol/L 3.5-5.1 [facility] Protein [Mass/Vol] 7.6 g/dL 6.4-8.2 [facility] Sodium [Moles/Vol] 139 mmol/L 136-145 [facility] Testosterone [Mass/Vol] 524 ng/dL 264-916 [facility] Comment on above: Adult male reference interval is based on a population ofhealthy nonobese males (BMI <30) between 19 and 39 yearsold. Jennifer et.al. JCEM 2017,102;[id number]. PMID:[id number]. Triglyceride [Mass/Vol] 285 mg/dL <199 [facility] Comment on above: The drugs N-Acetylcy steine and Metamizole may falsely depress this assay.Serum Triglycerides Reference Interval Normal <150 mg/dL Borderline high 150 - 199 mg/dL High 200 - 499 mg/dL Very High > or = 500 mg/dL WBC (Bld) [#/Vol] 8.0 10*3/uL 4.4-11.0 [facility] Blood erythrocytes count (nu mber/volume)Ordered By: Melina Agosto on 09-25-2023 RBC (Bld) [#/Vol] 5.77 10*6/uL 4.6-6.2 [facility] Blood hemoglobin measurement (mass/volume)Ordered By: Melina Agosto on 09-25-2023 Hemoglobin (Bld) [Mass/Vol] 18.2 g/dL 13.0-16.5 [facility] Comment on above: RESULTS CALLED TO DR MOLINA 09/25/23 0537 Tom Luna.REPORT READ BACK BY SAME.Previous reported result: 18.2 g/dLEdited by: CCRYTZER on 09/25/23:1543 Blood lymphocytes/100 leukoc ytesOrdered By: Melina Agosto on 09-25-2023 Lymphocytes/100 WBC (Bld) 33.0 % 19-41 [facility] Blood monocytes/100 leukocyt esOrdered By: Melina Agosto on 09-25-2023 Monocytes/100 WBC (Bld) 11.1 % 0-10 [facility] Blood platelet mean volumeOr dered By: Melina Agosto on 09-25-2023 Platelet mean volume (Bld) [Entitic vol] 10.3 fL 6.2-12.0 [facility] Determination of erythrocyte mean corpuscular volume (MCV)Ordered By: Melina Agosto on 09-25-2023 MCV (RBC) [Entitic vol] 90.6 fL 80-94 [facility] Free testosterone percentage Ordered By: Melina Agosto on 09-25-2023 Testosterone Free/Testosterone.total [Mass fraction] 2.04 % 1.50-4.20 [facility] Comment on above: Performed at: [address] [id number] Director: Sky Nash PhD, Phone: [phone] at: [facility] [id number] Director: Pedro Argueta MD, Phone: [phone] Hematocrit Auto (Bld) [Volum e fraction]Ordered By: Melina Agosto on 09-25-2023 Hematocrit (Bld) [Volume fraction] 52.3 % 40-54 [facility] Laboratory - Chemistry and C hemistry - challengeOrdered By: Melina Agosto on 09-25-2023 ALP [Catalytic activity/Vol] 94 U/L 45-117 [facility] ALT [Catalytic activity/Vol] 26 U/L 16-61 [facility] CO2 [Moles/Vol] 29.0 mmol/L 21.0-32.0 [facility] Cobalamin (Vitamin B12) [Mass/Vol] 168 pg/mL 211-911 [facility] Free T4 [Mass/Vol] 1.10 ng/dL 0.76-1.46 [facility] Globulin (S) [Mass/Vol] 3.7 g/dL 2.2-4.2 [facility] Magnesium [Mass/Vol] 2.2 mg/dL 1.6-2.6 [facility] Urea nitrogen/Creatinine [Mass ratio] 29.7 mg/mg 10-20 [facility] Laboratory - Hematology and Cell countsOrdered By: Melina Agosto on 09-25-2023 Erythrocyte distribution width (RBC) [Entitic vol] 45.0 fL 35.1-43.9 [facility] Erythrocyte distribution width (RBC) [Ratio] 13.4 % 11.6-14.6 [facility] Immature granulocytes/100 WBC (Bld) 0.100 % 0.0-0.9 [facility] Comment on above: IG% - Immature Granu locytes (promyelocytes, myelocytes and metamyelocytes) > 1% indicates that a LEFT SHIFT is Present. MCH (RBC) [Entitic mass] 31.5 pg 27.0-32.0 [facility] Nucleated RBC/100 WBC (Bld) [Ratio] 0 % 0-5 [facility] MCHC Auto (RBC) [Mass/Vol]Or dered By: Melina Agosto on 09-25-2023 MCHC (RBC) [Mass/Vol] 34.8 g/dL 32-36 [facility] No Panel InformationOrdered By: Melina Agosto on 09-25-2023 Estimated GFR (MDRD) Amer 119 mL/min >60 [facility] Comment on above: GFR Calc Estimated GFR (MDRD) Non-Af Amer 98 mL/min >60 [facility] Comment on above: Non- GFR Calc Free Triiodothyronine (T3) pg/dL 2.5 pg/mL 2.18-3.98 [facility] Thyroid Stimulating Hormone (TSH) 1.86 uIU/mL 0.358-3.74 [facility] Vitamin D 25-Hydroxy 35.2 ng/mL [facility] Comment on above: Vitamin D 25(OH) Sta tus Range Deficiency <20 ng/mL (50nmol/L) Insufficiency 20 - 30 ng/mL (50 - 75 nmol/L) Sufficiency 30 - 100 ng/mL (75 - 250 nmol/L) Toxicity >100 ng/mL (>250 nmol/L) Platelets bldOrdered By: Rola Agosto on 09-25-2023 Platelets (Bld) [#/Vol] 171 10*3/uL 150-450 [facility] Serum or plasma albumin gerson urement (mass/volume)Ordered By: Melina Agosto on 09-25-2023 Albumin [Mass/Vol] 3.9 g/dL 3.2-5.0 [facility] Serum or plasma albumin/glob ulin mass ratioOrdered By: Melina Agosto on 09-25-2023 Albumin/Globulin [Mass ratio] 1.1 {ratio} 0.9-2.4 [facility] Serum or plasma calcium gerson urement (mass/volume)Ordered By: Melina Agosto on 09-25-2023 Calcium [Mass/Vol] 9.6 mg/dL 8.5-10.1 [facility] Serum or plasma cholesterol in HDL measurement (mass/volume)Ordered By: Melina Agosto on 09-25-2023 Cholesterol in HDL [Mass/Vol] 37 mg/dL >40 [facility] Comment on above: The drugs N-Acetylcy steine and Metamizole may falsely depress this assay. Reference Range HDL <40 mg/dL Low HDL Cholesterol HDL >or= 60 mg/dL High HDL Cholesterol Serum or plasma cholesterol in VLDL measurement (mass/volume)Ordered By: Melina Agosto on 09-25-2023 Cholesterol in VLDL [Mass/Vol] 57 mg/dL 5-40 [facility] Serum or plasma creatinine m easurement (mass/volume)Ordered By: Melina Agosto on 09-25-2023 Creatinine [Mass/Vol] 0.81 mg/dL 0.70-1.30 [facility] Comment on above: The validity of the calculated GFR & GFRAA in patients over 70 years has not been determined. Clinical correlation is essential. Serum or plasma low density lipoprotein (LDL) cholesterol measurement (mass/volume)Ordered By: Melina Agosto on 09-25-2023 Cholesterol in LDL [Mass/Vol] 85 mg/dL 0-130 [facility] Serum or plasma testosterone free measurement (mass/volume)Ordered By: Melina Agosto on 09-25-2023 Testosterone Free [Mass/Vol] 10.69 ng/dL 5.00-21.00 [facility] Serum or plasma urea nitroge n measurement (mass/volume)Ordered By: Melina Agosto on 09-25-2023 Urea nitrogen [Mass/Vol] 24 mg/dL 7-18 [facility] Thin prep Papanicolaou smear with manual screeningOrdered By: Melina Agosto on 09-25-2023 Thin prep Papanicolaou smear with manual screening 19 U/L 15-37 [facility] Thin prep Papanicolaou smear with manual screening 6 5-15 [facility] Cytology report of Body flui d Cyto stainOrdered By: Dr. Marquez on 12-25-2022 Cytology report Cyto stain Doc (Body fld) SEE PATHOLOGY REPORT [facility] Comment on above: Specimen submitted t o Anatomical Pathology Department for testing. Absolute lymphocyte countOrd ered By: Dr. Agosto on 10-29-2022 Lymphocytes Auto (Unsp spec) [#/Vol] 2.30 10*3/uL 0.83-4.51 [facility] Basophil percentageOrdered B y: Dr. Agosto on 10-29-2022 Basophils/100 WBC (Bld) 0.6 % 0-1 [facility] Bilirubin [Mass/Vol] 0.50 mg/dL 0.20-1.00 [facility] Comment on above: For patients on eltr ombopag therapy, use of Dimension [place] TBIL is not recommended. Chloride [Moles/Vol] 104 mmol/L 98-107 [facility] Cholesterol [Mass/Vol] 208 mg/dL <200 [facility] Comment on above: <200 mg/dL Desirable 200-240 mg/dL Borderline >240 mg/dL High Risk Eosinophils/100 WBC (Bld) 3.0 % 0-5 [facility] Glucose [Mass/Vol] 128 mg/dL 74-106 [facility] Comment on above: Fasting Glucose resu lt greater than or equal to 126 mg/dL suggests DIABETES MELLITUS per A.D.A. criteria. Neutrophils (Bld) [#/Vol] 3.2 10*3/uL 2.0-7.7 [facility] Neutrophils/100 WBC (Bld) 49.6 % 47-70 [facility] Potassium [Moles/Vol] 4.1 mmol/L 3.5-5.1 [facility] Protein [Mass/Vol] 7.6 g/dL 6.4-8.2 [facility] Sodium [Moles/Vol] 139 mmol/L 136-145 [facility] Triglyceride [Mass/Vol] 234 mg/dL <199 [facility] Comment on above: The drugs N-Acetylcy steine and Metamizole may falsely depress this assay.Serum Triglycerides Reference Interval Normal <150 mg/dL Borderline high 150 - 199 mg/dL High 200 - 499 mg/dL Very High > or = 500 mg/dL WBC (Bld) [#/Vol] 6.4 10*3/uL 4.4-11.0 [facility] Blood erythrocytes count (nu mber/volume)Ordered By: Dr. Agosto on 10-29-2022 RBC (Bld) [#/Vol] 5.30 10*6/uL 4.6-6.2 [facility] Blood hemoglobin measurement (mass/volume)Ordered By: Dr. Agosto on 10-29-2022 Hemoglobin (Bld) [Mass/Vol] 16.3 g/dL 13.0-16.5 [facility] Blood lymphocytes/100 leukoc ytesOrdered By: Dr. Agosto on 10-29-2022 Lymphocytes/100 WBC (Bld) 36.0 % 19-41 [facility] Blood monocytes/100 leukocyt esOrdered By: Dr. Agosto on 10-29-2022 Monocytes/100 WBC (Bld) 10.6 % 0-10 [facility] Blood platelet mean volumeOr dered By: Dr. Agosto on 10-29-2022 Platelet mean volume (Bld) [Entitic vol] 10.3 fL 6.2-12.0 [facility] Determination of erythrocyte mean corpuscular volume (MCV)Ordered By: Dr. Agosto on 10-29-2022 MCV (RBC) [Entitic vol] 92.8 fL 80-94 [facility] Hematocrit Auto (Bld) [Volum e fraction]Ordered By: Dr. Agosto on 10-29-2022 Hematocrit (Bld) [Volume fraction] 49.2 % 40-54 [facility] Laboratory - Chemistry and C hemistry - challengeOrdered By: Dr. Agosto on 10-29-2022 ALP [Catalytic activity/Vol] 95 U/L 45-117 [facility] ALT [Catalytic activity/Vol] 42 U/L 16-61 [facility] CO2 [Moles/Vol] 30.0 mmol/L 21.0-32.0 [facility] Globulin (S) [Mass/Vol] 3.9 g/dL 2.2-4.2 [facility] Urea nitrogen/Creatinine [Mass ratio] 15.2 mg/mg 10-20 [facility] Laboratory - Hematology and Cell countsOrdered By: Dr. Agosto on 10-29-2022 Erythrocyte distribution width (RBC) [Entitic vol] 45.2 fL 35.1-43.9 [facility] Erythrocyte distribution width (RBC) [Ratio] 13.2 % 11.6-14.6 [facility] Immature granulocytes/100 WBC (Bld) 0.200 % 0.0-0.9 [facility] Comment on above: IG% - Immature Granu locytes (promyelocytes, myelocytes and metamyelocytes) > 1% indicates that a LEFT SHIFT is Present. MCH (RBC) [Entitic mass] 30.8 pg 27.0-32.0 [facility] Nucleated RBC/100 WBC (Bld) [Ratio] 0 % 0-5 [facility] MCHC Auto (RBC) [Mass/Vol]Or dered By: Dr. Agosto on 10-29-2022 MCHC (RBC) [Mass/Vol] 33.1 g/dL 32-36 [facility] No Panel InformationOrdered By: Dr. Agosto on 10-29-2022 Estimated GFR (MDRD) Amer 95 mL/min >60 [facility] Comment on above: GFR Calc Estimated GFR (MDRD) Non-Af Amer 78 mL/min >60 [facility] Comment on above: Non- GFR Calc Prostate Specific Antigen Screen 0.10 ng/mL 0.00-4.00 [facility] Comment on above: This test was perfor med using the TPSA assay method for the[facility] chemistry system. Values obtained with differentassay methods cannot be used interchangably.When changing PSA assays in the course of monitoring apatient, additional sequential testing should be carriedout to confirm baseline values. Thyroid Stimulating Hormone (TSH) 0.68 uIU/mL 0.358-3.74 [facility] Vitamin D 25-Hydroxy 28.5 ng/mL [facility] Comment on above: Vitamin D 25(OH) Sta tus Range Deficiency <20 ng/mL (50nmol/L) Insufficiency 20 - 30 ng/mL (50 - 75 nmol/L) Sufficiency 30 - 100 ng/mL (75 - 250 nmol/L) Toxicity >100 ng/mL (>250 nmol/L) Platelets bldOrdered By: Dr. Agosto on 10-29-2022 Platelets (Bld) [#/Vol] 155 10*3/uL 150-450 [facility] Serum or plasma albumin gerson urement (mass/volume)Ordered By: Dr. Agosto on 10-29-2022 Albumin [Mass/Vol] 3.7 g/dL 3.2-5.0 [facility] Serum or plasma albumin/glob ulin mass ratioOrdered By: Dr. Agosto on 10-29-2022 Albumin/Globulin [Mass ratio] 0.9 {ratio} 0.9-2.4 [facility] Serum or plasma calcium gerson urement (mass/volume)Ordered By: Dr. Agosto on 10-29-2022 Calcium [Mass/Vol] 9.3 mg/dL 8.5-10.1 [facility] Serum or plasma cholesterol in HDL measurement (mass/volume)Ordered By: Dr. Agosto on 10-29-2022 Cholesterol in HDL [Mass/Vol] 41 mg/dL >40 [facility] Comment on above: The drugs N-Acetylcy steine and Metamizole may falsely depress this assay. Reference Range HDL <40 mg/dL Low HDL Cholesterol HDL >or= 60 mg/dL High HDL Cholesterol Serum or plasma cholesterol in VLDL measurement (mass/volume)Ordered By: Dr. Agosto on 10-29-2022 Cholesterol in VLDL [Mass/Vol] 47 mg/dL 5-40 [facility] Serum or plasma creatinine m easurement (mass/volume)Ordered By: Dr. Agosto on 10-29-2022 Creatinine [Mass/Vol] 0.99 mg/dL 0.70-1.30 [facility] Comment on above: The validity of the calculated GFR & GFRAA in patients over 70 years has not been determined. Clinical correlation is essential. Serum or plasma low density lipoprotein (LDL) cholesterol measurement (mass/volume)Ordered By: Dr. Agosto on 10-29-2022 Cholesterol in LDL [Mass/Vol] 120 mg/dL 0-130 [facility] Serum or plasma urea nitroge n measurement (mass/volume)Ordered By: Dr. Agosto on 10-29-2022 Urea nitrogen [Mass/Vol] 15 mg/dL 7-18 [facility] Thin prep Papanicolaou smear with manual screeningOrdered By: Dr. Agosto on 10-29-2022 Thin prep Papanicolaou smear with manual screening 31 U/L 15-37 [facility] Thin prep Papanicolaou smear with manual screening 5 5-15 [facility] Whole blood hemoglobin A1c/t otal hemoglobin ratio (mass fraction)Ordered By: Dr. Agosto on 10-29-2022 HbA1c (Bld) [Mass fraction] 5.9 % 3.8-5.6 [facility] Comment on above: Normal < 5.7 % Predi abetic 5.7 - 6.4 % Diabetic >or= 6.5 % Please note range changes. Absolute lymphocyte counton 04-05-2022 Lymphocytes Auto (Unsp spec) [#/Vol] 2.46 10*3/uL 0.83-4.51 [facility] Work Phone: Basophil percentageon 2021 Basophils/100 WBC (Bld) 0.5 % 0-1 [facility] Work Phone: Bilirubin [Mass/Vol] 0.70 mg/dL 0.20-1.00 [facility] Work Phone: Comment on above: For patients on eltr ombopag therapy, use of Dimension [place] TBIL is not recommended. Chloride [Moles/Vol] 105 mmol/L 98-107 [facility] Work Phone: Cholesterol [Mass/Vol] 194 mg/dL <200 [facility] Work Phone: Comment on above: <200 mg/dL Desirable 200-240 mg/dL Borderline >240 mg/dL High Risk Eosinophils/100 WBC (Bld) 2.4 % 0-5 [facility] Work Phone: Glucose [Mass/Vol] 144 mg/dL 74-106 [facility] Work Phone: Comment on above: Fasting Glucose resu lt greater than or equal to 126 mg/dL suggests DIABETES MELLITUS per A.D.A. criteria. Neutrophils (Bld) [#/Vol] 5.1 10*3/uL 2.0-7.7 [facility] Work Phone: Neutrophils/100 WBC (Bld) 59.6 % 47-70 [facility] Work Phone: Potassium [Moles/Vol] 3.9 mmol/L 3.5-5.1 [facility] Work Phone: Protein [Mass/Vol] 7.2 g/dL 6.4-8.2 [facility] Work Phone: Sodium [Moles/Vol] 140 mmol/L 136-145 [facility] Work Phone: Triglyceride [Mass/Vol] 191 mg/dL <199 [facility] Work Phone: Comment on above: The drugs N-Acetylcy steine and Metamizole may falsely depress this assay.Serum Triglycerides Reference Interval Normal <150 mg/dL Borderline high 150 - 199 mg/dL High 200 - 499 mg/dL Very High > or = 500 mg/dL WBC (Bld) [#/Vol] 8.5 10*3/uL 4.4-11.0 [facility] Work Phone: Blood erythrocytes count (nu mber/volume)on 04-05-2022 RBC (Bld) [#/Vol] 5.49 10*6/uL 4.6-6.2 [facility] Work Phone: Blood hemoglobin measurement (mass/volume)on 04-05-2022 Hemoglobin (Bld) [Mass/Vol] 16.8 g/dL 13.0-16.5 [facility] Work Phone: Blood lymphocytes/100 leukoc yteson 04-05-2022 Lymphocytes/100 WBC (Bld) 29.0 % 19-41 [facility] Work Phone: Blood monocytes/100 leukocyt eson 04-05-2022 Monocytes/100 WBC (Bld) 8.3 % 0-10 [facility] Work Phone: Blood platelet mean volumeon 04-05-2022 Platelet mean volume (Bld) [Entitic vol] 10.5 fL 6.2-12.0 [facility] Work Phone: Determination of erythrocyte mean corpuscular volume (MCV)on 04-05-2022 MCV (RBC) [Entitic vol] 92.7 fL 80-94 [facility] Work Phone: Hematocrit Auto (Bld) [Volum e fraction]on 04-05-2022 Hematocrit (Bld) [Volume fraction] 50.9 % 40-54 [facility] Work Phone: Iron measurement (mass/mass) on 04-05-2022 Iron (Unsp spec) [Mass/Mass] 77 ug/dL 65-175 [facility] Work Phone: Laboratory - Chemistry and C hemistry - challengeon 04-05-2022 Natriuretic peptide B (Bld) [Mass/Vol] 9.9 pg/mL 0-100 [facility] Work Phone: ALP [Catalytic activity/Vol] 92 U/L 45-117 [facility] Work Phone: ALT [Catalytic activity/Vol] 35 U/L 16-61 [facility] Work Phone: CO2 [Moles/Vol] 27.0 mmol/L 21.0-32.0 [facility] Work Phone: Cobalamin (Vitamin B12) [Mass/Vol] 541 pg/mL 211-911 [facility] Work Phone: Free T4 [Mass/Vol] 1.05 ng/dL 0.76-1.46 [facility]: [phone] Globulin (S) [Mass/Vol] 3.7 g/dL 2.2-4.2 [facility] Work Phone: [phone] Magnesium [Mass/Vol] 2.0 mg/dL 1.6-2.6 [facility]: [phone] Urea nitrogen/Creatinine [Mass ratio] 14.2 mg/mg 10-20 [facility] Work Phone: [phone] Laboratory - Hematology and Cell countson 04-05-2022 Erythrocyte distribution width (RBC) [Entitic vol] 45.7 fL 35.1-43.9 [facility] Work Phone: [phone] Erythrocyte distribution width (RBC) [Ratio] 13.3 % 11.6-14.6 [facility] Work Phone: [phone] Immature granulocytes/100 WBC (Bld) 0.200 % 0.0-0.9 [facility] Work Phone: [phone] Comment on above: IG% - Immature Granu locytes (promyelocytes, myelocytes and metamyelocytes) > 1% indicates that a LEFT SHIFT is Present. MCH (RBC) [Entitic mass] 30.6 pg 27.0-32.0 [facility] Work Phone: [phone] Nucleated RBC/100 WBC (Bld) [Ratio] 0 % 0-5 [facility] Work Phone: [phone] MCHC Auto (RBC) [Mass/Vol]on 04-05-2022 MCHC (RBC) [Mass/Vol] 33.0 g/dL 32-36 [facility] Work Phone: [phone] No Panel Informationon 04-05 Estimated GFR (MDRD) Amer 87 mL/min >60 [facility] Work Phone: [phone] Comment on above: GFR Calc Estimated GFR (MDRD) Non-Af Amer 72 mL/min >60 [facility] Work Phone: [phone] Comment on above: Non- GFR Calc Free Triiodothyronine (T3) pg/dL 2.5 pg/mL 2.18-3.98 [facility] Work Phone: [phone] Thyroid Stimulating Hormone (TSH) 1.74 uIU/mL 0.358-3.74 [facility] Work Phone: [phone] Total Iron Binding Capacity 299 ug/dL 250-450 [facility] Work Phone: [phone] Vitamin D 25-Hydroxy 25.0 ng/mL [facility] Work Phone: [phone] Comment on above: Vitamin D 25(OH) Sta tus Range Deficiency <20 ng/mL (50nmol/L) Insufficiency 20 - 30 ng/mL (50 - 75 nmol/L) Sufficiency 30 - 100 ng/mL (75 - 250 nmol/L) Toxicity >100 ng/mL (>250 nmol/L) Platelets bldon 04-05-2022 Platelets (Bld) [#/Vol] 154 10*3/uL 150-450 [facility] Work Phone: [phone] Serum or plasma albumin gerson urement (mass/volume)on 04-05-2022 Albumin [Mass/Vol] 3.5 g/dL 3.2-5.0 [facility] Work Phone: [phone] Serum or plasma albumin/glob ulin mass ratioon 04-05-2022 Albumin/Globulin [Mass ratio] 0.9 {ratio} 0.9-2.4 [facility] Work Phone: [phone] Serum or plasma calcium gerson urement (mass/volume)on 04-05-2022 Calcium [Mass/Vol] 9.1 mg/dL 8.5-10.1 [facility] Work Phone: [phone] Serum or plasma cholesterol in HDL measurement (mass/volume)on 04-05-2022 Cholesterol in HDL [Mass/Vol] 41 mg/dL >40 [facility] Work Phone: [phone] Comment on above: The drugs N-Acetylcy steine and Metamizole may falsely depress this assay. Reference Range HDL <40 mg/dL Low HDL Cholesterol HDL >or= 60 mg/dL High HDL Cholesterol Serum or plasma cholesterol in VLDL measurement (mass/volume)on 04-05-2022 Cholesterol in VLDL [Mass/Vol] 38 mg/dL 5-40 [facility] Work Phone: [phone] Serum or plasma creatinine m easurement (mass/volume)on 04-05-2022 Creatinine [Mass/Vol] 1.06 mg/dL 0.70-1.30 [facility] Work Phone: Comment on above: The validity of the calculated GFR & GFRAA in patients over 70 years has not been determined. Clinical correlation is essential. Serum or plasma iron saturat ion measurement (mass fraction)on 04-05-2022 Iron saturation [Mass fraction] 25.8 % 15.0-55.0 [facility] Work Phone: Serum or plasma low density lipoprotein (LDL) cholesterol measurement (mass/volume)on 04-05-2022 Cholesterol in LDL [Mass/Vol] 115 mg/dL 0-130 [facility] Work Phone: Serum or plasma urea nitroge n measurement (mass/volume)on 04-05-2022 Urea nitrogen [Mass/Vol] 15 mg/dL 7-18 [facility] Work Phone: [phone] Thin prep Papanicolaou smear with manual screeningon 04-05-2022 Thin prep Papanicolaou smear with manual screening 28 U/L 15-37 [facility] Work Phone: Thin prep Papanicolaou smear with manual screening 8 5-15 [facility] Work Phone: [phone] Laboratory - Chemistry and C hemistry - challengeon 12-22-2021 Free T4 [Mass/Vol] 1.01 ng/dL 0.76-1.46 [facility] Work Phone: No Panel Informationon 12-22 Free Triiodothyronine (T3) pg/dL 2.7 pg/mL 2.18-3.98 [facility] Work Phone: [phone] Thyroid Stimulating Hormone (TSH) 0.56 uIU/mL 0.358-3.74 [facility] Work Phone: Laboratory - Chemistry and C hemistry - challengeon 10-24-2021 Free T4 [Mass/Vol] 1.34 ng/dL 0.76-1.46 [facility] Work Phone: No Panel Informationon 10-24 Free Triiodothyronine (T3) pg/dL 2.7 pg/mL 2.18-3.98 [facility] Work Phone: Thyroid Stimulating Hormone (TSH) 0.19 uIU/mL 0.358-3.74 [facility] Work Phone: CBCon 07-12-2017 Erythrocyte distribution width Auto Ratio (RBC) 13.4 % Normal 11.5 - 14.5 [facility] Comment on above: Performed By: #### C BC ####[id number] [place] [address] Erythrocytes (RBC) 5.38 x10E12/L Normal 4.50 - 5.90 [facility] Comment on above: Performed By: #### C BC ####[id number] [place] [address] Hematocrit (HCT) 50.8 % Normal 41.0 - 52.0 [facility] Comment on above: Performed By: #### C BC ####[id number] [place] [address] Hemoglobin mass conc (Bld) 16.6 g/dL Normal 13.5 - 17.5 [facility] Comment on above: Performed By: #### C BC ####[id number] [place] [address] MCHC mass conc (RBC) 32.7 g/dL Normal 32.0 - 36.0 [facility] Comment on above: Performed By: #### C BC ####[id number] [place] [address] MCV 94 fL Normal 80 - 100 [facility] Comment on above: Performed By: #### C BC ####[id number] [place] [address] Nucleated erythrocytes 0.0 /100 WBC Normal 0.0-0.0 [facility] Comment on above: Performed By: #### C BC ####[id number] [place] [address] Platelets 145 10*3/uL Low 150 - 450 [facility] Comment on above: Performed By: #### C BC ####[id number] [place] [address] WBC (Leukocytes) 8.1 10*3/uL Normal 4.4 - 11.3 [facility] Comment on above: Performed By: #### C BC ####[id number] [place] [address] COMPREHENSIVE PANELon 2016 Alanine aminotransferase (ALT) 27 U/L Normal 10 - 52 [facility] Comment on above: Result Comment: Arely ents treated with Sulfasalazine may generate falsely decreased results for ALT. Performed By: #### C MP ####[id number] [place] [address] Albumin 4.2 g/dL Normal 3.4 - 5.0 [facility] Comment on above: Performed By: #### C MP ####[id number] [place] [address] Alkaline phosphatase (ALP) 65 U/L Normal 33 - 136 [facility] Comment on above: Performed By: #### C MP ####[id number] [place] [address] Anion gap 16 mmol/L Normal 10 - 20 [facility] Comment on above: Performed By: #### C MP ####[id number] [place] [address] Aspartate aminotransferase (AST) 24 U/L Normal 9 - 39 [facility] Comment on above: Performed By: #### C MP ####[id number] [place] [address] Bicarbonate (HCO3) 29 mmol/L Normal 21 - 32 [facility] Comment on above: Performed By: #### C MP ####[id number] [place] [address] Bilirubin (total) 0.6 mg/dL Normal 0.0 - 1.2 [facility] Comment on above: Performed By: #### C MP ####[id number] [place] [address] Calcium 9.8 mg/dL Normal 8.6 - 10.6 [facility] Comment on above: Performed By: #### C MP ####[id number] [place] [address] Chloride 99 mmol/L Normal 98 - 107 [facility] Comment on above: Performed By: #### C MP ####[id number] [place] [address] Creatinine 0.94 mg/dL Normal 0.50 - 1.30 [facility] Comment on above: Performed By: #### C MP ####[id number] [place] [address] eGFR (non-black) mL/min/{1.73_m2} Normal >60 [facility] Comment on above: Performed By: #### C MP ####[id number] [place] [address] Result Comment: CALC ULATIONS OF ESTIMATED GFR ARE PERFORMED USING THE MDRD STUDY EQUATION FOR THE IDMS-TRACEABLE CREATININE METHODS. CLIN CHEM 2007;53:[id number] Glucose mass conc 107 mg/dL High 74 - 99 [facility] Comment on above: Performed By: #### C MP ####[id number] [place] [address] Potassium molar conc 4.2 mmol/L Normal 3.5 - 5.3 [facility] Comment on above: Performed By: #### C MP ####[id number] [place] [address] Protein 7.3 g/dL Normal 6.4 - 8.2 [facility] Comment on above: Performed By: #### C MP ####[id number] [place] [address] Sodium 140 mmol/L Normal 136 - 145 [facility] Comment on above: Performed By: #### C MP ####[id number] [place] [address] Urea nitrogen 23 mg/dL Normal 6 - 23 [facility] Comment on above: Performed By: #### C MP ####[id number] [place] [address] HEMOGLOBIN A1Con 07-12-2017 Glucose mass conc 128 mg/dL Normal [facility] Comment on above: Performed By: #### H BA1E ####[id number] [place] [address] Hemoglobin A1c/Hemoglobin.total mass fraction (Bld) 6.1 % Normal [facility] Comment on above: Result Comment: Diag nosis of Diabetes-Adults Non-Diabetic: < or = 5.6% Increased risk for developing diabetes: 5.7-6.4% Diagnostic of diabetes: > or = 6.5%. Monitoring of Diabetes Age (y) Therapeutic Goal (%) Adults: >18 <7.0 Pediatrics: 13-18 <7.5 7-12 <8.0 0- 6 7.5-8.5 [employer]. Diabetes Care 33(S1), Sep 2009. Performed By: #### H BA1E ####[id number] [place] [address] LIPID PANEL (CORONARY RISK 2 )on 07-12-2017 Cholesterol 201 mg/dL High 0 - 199 [facility] Comment on above: Result Comment: . AG [...] Metamizole dosing. Performed By: #### L IPID ####[id number] [place] [address] Cholesterol in VLDL mass conc 66 mg/dL High 0 - 40 [facility] Comment on above: Performed By: #### L IPID ####[id number] [place] [address] Cholesterol to HDL Ratio 4.5 {ratio} Normal [facility] Comment on above: Result Comment: REF VALUESDESIRABLE < 3.4HIGH RISK > 5.0 Performed By: #### L IPID ####[id number] [place] [address] HDL Cholesterol 44.8 mg/dL Normal [facility] Comment on above: Result Comment: . AG E VERY LOW LOW NORMAL HIGH 0-19 Y < 35 < 40 40-45 ---- 20-24 Y ---- < 40 >45 ---- >24 Y ---- < 40 40-60 >60. Performed By: #### L IPID ####[id number] [place] [address] LDL Cholesterol 90 mg/dL Normal 0 - 99 [facility] Comment on above: Result Comment: . JAY GREEN AGE DESIRABLE OPTIMAL HIGH HIGH VERY HIGH 0-19 Y 0 - 109 --- 110-129 >/= 130 ---- 20-24 Y 0 - 119 --- 120-159 >/= 160 ---- >24 Y 0 - 99 100-129 130-159 160-189 >/=190. Performed By: #### L IPID ####[id number] [place] [address] NON-HDL CHOLESTEROL 156 mg/dL Normal [facility] Comment on above: Result Comment: AGE DESIRABLE BORDERLINE HIGH HIGH VERY HIGH 0-19 Y 0 - 119 120 - 144 >/= 145 >/= 160 20-24 Y 0 - 149 150 - 189 >/= 190 ---- >24 Y 30 MG/DL ABOVE LDL CHOLESTEROL GOAL. Performed By: #### L IPID ####[id number] [place] [address] Triglyceride 331 mg/dL High 0 - 149 [facility] Comment on above: Result Comment: . AG [...] Metamizole dosing. Performed By: #### L IPID ####[id number] [place] [address] TSH WITH REFLEX TO FREE T4 I F ABNORMALon 07-12-2017 Thyroid stimulating hormone (TSH) 3.88 m[IU]/L Normal 0.44 - 3.98 [facility] Comment on above: Result Comment: TSH testing is performed using different testing methodology at [facility] than at other [facility]. Direct result comparisons should only be made within the same method.. Patients receiving more than 5 mg/day of biotin may have interference in test results. A sample should be taken no sooner than eight hours after previous dose. Contact [phone] for additional information. Performed By: #### T HYDS ####[id number] [place] [address] VITAMIN B12on 07-12-2017 Cobalamins (Vitamin B12) 1445 pg/mL High 211 - 911 [facility] Comment on above: Performed By: #### V TB12 ####[id number] [place] [address] VITAMIN D, 25-HYDROXYon 06-17 VITAMIN D, 25-HYDROXY 33 ng/mL Normal [facility] Comment on above: Result Comment: .DEF ICIENCY: < 20 NG/MLINSUFFICIENCY: 20-29 NG/MLOPTIMUM LEVEL: 30-80 NG/MLPOSSIBLE TOXICITY: > 80 NG/MLTHIS ASSAY ACCURATELY QUANTIFIES THE SUM OFVITAMIN D3, 25-HYDROXY AND VIT D2,25-HYDROXY. Performed By: #### V TDOH ####[facility] [place] [address] Chart Maintenanceon 05-06-20 17 Left ventricular Ejection fraction 65 % Invalid Interpretation Code [facility] Work Phone: [phone] Office Visiton 05-06-2017 Dietary management education, guidance, and counseling (procedure) yes Invalid Interpretation Code [facility] Work Phone: [phone] Documentation of current medications (procedure) Done Invalid Interpretation Code [facility] Work Phone: [phone] Fall risk assessment No Invalid Interpretation Code [facility] Work Phone: [phone] Protein mass conc Done [facility] Work Phone: [phone] Office Visiton 11-01-2016 Dietary management education, guidance, and counseling (procedure) yes Invalid Interpretation Code [facility] Work Phone: [phone] Documentation of current medications (procedure) Done Invalid Interpretation Code [facility] Work Phone: [phone] Lab Report: Blood Gas Specim en Typeon 09-28-2016 arterial blood gas FREEDOM Invalid Interpretation Code [facility] Work Phone: [phone] BLD GAS TYPE FREEDOM [facility] Work Phone: [phone]) Lab Report: PO2 I-Angelo Oxygen in arterial blood 76 mm[Hg] Invalid Interpretation Code 75-100 [facility] Work Phone: [phone] Oxygen ppres (Bld) 76 mm[Hg] 75-100 [facility] Work Phone: [phone] Lab Report: SO2 ISTATon 09-16 O2 saturation 95 % Invalid Interpretation Code 95-99 [facility] Work Phone: [phone] SaO2% mass fraction (BldA) 95 % 95-99 [facility] Work Phone: [phone] Lab Report: VBG PO2 I-Angelo 09-28-2016 oxygen, partial pressure, venous blood 36 mm[Hg] Invalid Interpretation Code 25-40 [facility] Work Phone: [phone] VBG PO2 I-STAT 36 mm[Hg] 25-40 [facility] Work Phone: [phone] Lab Report: VBG SO2 ISTATon 09-28-2016 saturation venous oxygen 67 % Invalid Interpretation Code 50-70 [facility] Work Phone: [phone] VBG SO2 ISTAT 67 % 50-70 [facility] Work Phone: [phone] Lab Report: Basic Metabolic Profile (BMP)on 09-20-2016 Anion gap 10 mmol/L Invalid Interpretation Code 5-15 [facility] Work Phone: [phone] Anion gap molar conc 10 mmol/L 5-[address] [facility] Work Phone: [phone] BUN/Creatinine Ratio 16.7 RATIO Invalid Interpretation Code 10-20 [facility] Work Phone: [phone] Calcium 9.3 mg/dL Invalid Interpretation Code 8.5-10.1 [facility] Work Phone: [phone] Chloride 102 mmol/L Invalid Interpretation Code 98-107 [facility] Work Phone: [phone] CO2 29.0 mmol/L Invalid Interpretation Code 21.0-32.0 [facility] Work Phone: [phone] CO2 ppres (BldV) 29.0 mmol/L 21.0-32.0 [facility] Work Phone: [phone] Creatinine 1.08 mg/dL Invalid Interpretation Code 0.70-1.30 [facility] Work Phone: [phone] eGFR (non-black) 87 mL/min/{1.73_m2} Invalid Interpretation Code >60 [facility] Work Phone: [phone] eGFR (non-black) 72 mL/min/{1.73_m2} Invalid Interpretation Code >60 [facility] Work Phone: [phone] EST GFR - AA 87 mL/min >60 [facility] Work Phone: [phone] Glucose 112 mg/dL High 70-110 [facility] Work Phone: [phone] Glucose mass conc 112 mg/dL High 70-110 [facility] Work Phone: [phone] Potassium 4.0 mmol/L Invalid Interpretation Code 3.5-5.1 [facility] Work Phone: [phone] Sodium 141 mmol/L Invalid Interpretation Code 136-145 [facility] Work Phone: [phone] Urea nitrogen 18 mg/dL Invalid Interpretation Code 7-18 [facility] Work Phone: [phone] Lab Report: CBC-Complete Blo od Cnt No Diffon 09-20-2016 Erythrocyte distribution width Ratio (RBC) 13.7 % 11.6-14.6 [facility] Work Phone: [phone] Erythrocyte distribution width Ratio (RBC) 45.3 fL High 35.1-43.9 [facility] Work Phone: [phone] Erythrocytes (RBC) 5.66 10*6/uL Invalid Interpretation Code 4.6-6.2 [facility] Work Phone: [phone] Hematocrit (HCT) 51.7 % Invalid Interpretation Code 40-54 [facility] Work Phone: [phone] Hematocrit Volume Fraction (Bld) 51.7 % 40-54 [facility] Work Phone: [phone] Hemoglobin (HGB) 17.4 g/dL High 13.0-16.5 [facility] Work Phone: [phone] MCH 30.7 pg Invalid Interpretation Code 27.0-32.0 [facility] Work Phone: [phone] MCH Entitic mass (RBC) 30.7 pg 27.0-32.0 [facility] Work Phone: [phone] MCHC 33.7 G/GL Invalid Interpretation Code 32-36 [facility] Work Phone: [phone] MCHC mass conc (RBC) 33.7 G/GL 32-[address] [facility] Work Phone: [phone] MCV 91.3 fL Invalid Interpretation Code 80-94 [facility] Work Phone: [phone] MCV Entitic volume (RBC) 91.3 fL 80-94 [facility] Work Phone: Platelet mean volume Entitic volume (Bld) 11.7 fL 6.2-12.0 [facility] Work Phone: [phone] Platelets 181 10*3/mm3 Invalid Interpretation Code 150-450 [facility] Work Phone: [phone] Platelets #/vol (Bld) 181 10*3/mm3 150-450 [facility] Work Phone: [phone] PMV by Kassidy 11.7 fL Invalid Interpretation Code 6.2-12.0 [facility] Work Phone: [phone] RBC #/vol (Bld) 5.66 10*6/uL 4.6-6.2 [facility] Work Phone: [phone] RDW-CA 13.7 % Invalid Interpretation Code 11.6-14.6 [facility] Work Phone: [phone] red blood cell distribution width, size density 45.3 fL High 35.1-43.9 [facility] Work Phone: [phone] WBC #/vol (Bld) 8.5 10*3/uL 4.4-11.0 [facility] Work Phone: [phone] WBC (Leukocytes) 8.5 10*3/uL Invalid Interpretation Code 4.4-11.0 [facility] Work Phone: [phone] Lab Report: Partial Thrombop last Timeon 09-20-2016 aPTT 32.8 s Invalid Interpretation Code 24.1-36.2 [facility] Work Phone: [phone] Lab Report: Prothrombin Time w/INRon 09-20-2016 Coagulation tissue factor induced in platelet poor plasma 12.8 s Invalid Interpretation Code 11.7-14.9 [facility] Work Phone: [phone] INR Coag RelTime (PPP) 1.0 {INR} [facility] Work Phone: [phone] INR in blood by coagulation 1.0 {INR} Invalid Interpretation Code [facility] Work Phone: [phone] Replaced Document: Midmark E CG Observationson 09-20-2016 EKG QRS axis -63 deg [facility] Work Phone: electrocardiogram interpretation Sinus Rhythm -Left axis -anterior fascicular block. 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 ABNORMAL [facility] Work Phone: P [place] 46 deg [facility] Work Phone: P wave axis, electrocardiogram 46 deg Invalid Interpretation Code [facility] Work Phone: DC Interval 152 ms [facility] Work Phone: DC interval, electrocardiogram 152 ms Invalid Interpretation Code [facility] Work Phone: [phone] Pulse (Heart Rate) 88 /min Invalid Interpretation Code [facility] Phone: [phone] QRS axis, electrocardiogram -63 deg Invalid Interpretation Code [facility] Work Phone: [phone] QRS Duration 108 ms [facility] Work Phone: [phone] QRS duration, electrocardiogram 108 ms Invalid Interpretation Code [facility] Phone: [phone] QT Interval new path ms [facility] Work Phone: [phone] QT interval, electrocardiogram new path ms Invalid Interpretation Code [facility] Phone: QTc Bhatia 425 ms [facility] Work Phone: [phone] T [place] 47 deg [facility] Work Phone: [phone] T wave axis, electrocardiogram 47 deg Invalid Interpretation Code [facility] Work Phone: Office Visiton 07-31-2016 Tobacco smoking status NHIS Former smoker [facility] Work Phone: Tobacco use CPHS Former smoker Invalid Interpretation Code [facility] Phone: Clinical Lists Update: Prelo de alcholizer 07-05-2016 Alanine aminotransferase (ALT) 17 U/L Invalid Interpretation Code [facility] Work Phone: Alkaline phosphatase (ALP) 57 U/L Invalid Interpretation Code [facility] Work Phone: [phone] ALP enzyme act/vol (Bld) 57 U/L [facility] Work Phone: [phone] Aspartate aminotransferase (AST) 21 U/L Invalid Interpretation Code [facility] Work Phone: [phone] Bilirubin (total) 0.7 mg/dL Invalid Interpretation Code [facility] Work Phone: [phone] Cholesterol 172 mg/dL Invalid Interpretation Code [facility] Work Phone: [phone] HbA1c 5.8 % Invalid Interpretation Code [facility] Work Phone: [phone] HDL Cholesterol 36.5 mg/dL Invalid Interpretation Code [facility] Work Phone: [phone] LDL Cholesterol 91 mg/dL Invalid Interpretation Code [facility] Work Phone: [phone] Protein 7.0 g/dL Invalid Interpretation Code [facility] Work Phone: [phone] Thyroid stimulating hormone (TSH) 0.22 u[iU]/mL Invalid Interpretation Code [facility] Work Phone: [phone] Triglyceride 224 mg/dL Invalid Interpretation Code [facility] Work Phone: [phone] Vital Signs Date Time Vital Sign Value Performing Clinician Donna santos 11-19-2024 07:58-0500 Body mass index (BMI) [Ratio] 38.4 kg/m2 Dr. Melina Agosto MD Work Phone: [facility] 11-19-2024 07:58-0500 Body temperature 96.4 [degF] Dr. Melina Agosto MD Work Phone: [facility] 11-19-2024 07:58-0500 Body weight 117.[address] Melina Agosto MD Work Phone: [facility] 11-19-2024 07:58-0500 Diastolic blood pressure 78 mm[Hg] Dr. Melina Agosto MD Work Phone: [facility] 11-19-2024 07:58-0500 Heart rate 74 /min Dr. Melina Agosto MD Work Phone: [facility] 11-19-2024 07:58-0500 Respiratory rate 18 /min Dr. Melina Agosto MD Work Phone: [facility] 11-19-2024 07:58-0500 SaO2% (BldA) [Mass fraction] 97 % Dr. Melina Agosto MD Work Phone: [facility] 11-19-2024 07:58-0500 Systolic blood pressure 117 mm[Hg] Dr. Melina Agosto MD Work Phone: [facility] 11-14-2024 02:08-0500 Body weight 119.[address] Melina Agosto MD Work Phone: [facility] 11-11-2024 09:17-0500 Body height 175.[address] Melina Agosto MD Work Phone: [facility] 11-11-2024 09:17-0500 Body weight 119.[address] Melina Agosto MD Work Phone: [facility] 10-14-2024 08:49-0500 Body mass index (BMI) [Ratio] 38.7 kg/m2 Dr. Melina Agosto MD Work Phone: [facility] 10-14-2024 08:49-0500 Body weight 118.[address] Melina Agosto MD Work Phone: [facility] 10-14-2024 08:49-0500 Diastolic blood pressure 71 mm[Hg] Dr. Melina Agosto MD Work Phone: [facility] 10-14-2024 08:49-0500 Heart rate 87 /min Dr. Melina Agosto MD Work Phone: [facility] 10-14-2024 08:49-0500 Respiratory rate 20 /min Dr. Melina Agosto MD Work Phone: [facility] 10-14-2024 08:49-0500 SaO2% (BldA) [Mass fraction] 92 % Dr. Melina Agosto MD Work Phone: [facility] 10-14-2024 08:49-0500 Systolic blood pressure 129 mm[Hg] Dr. Melina Agosto MD Work Phone: [facility] 10-12-2024 11:07-0500 Body weight 119.[address] Melina Agosto MD Work Phone: [facility] 09-11-2024 11:10-0500 Body weight 120.[address] Melina Agosto MD Work Phone: [facility] 09-25-2023 10:57-0500 Body height 177.[address] Melina Agosto Work Phone: [facility] 09-25-2023 10:57-0500 Body mass index (BMI) [Ratio] 38.9 kg/m2 Dr. Melina Agosto Work Phone: [facility] 09-25-2023 10:57-0500 Body temperature 97.4 [degF] Dr. Melina Agosto Work Phone: [facility] 09-25-2023 10:57-0500 Body weight 123.[address] Melina Agosto Work Phone: [facility] 09-25-2023 10:57-0500 Diastolic blood pressure 67 mm[Hg] Dr. Melina Agosto Work Phone: [facility] 09-25-2023 10:57-0500 Heart rate 94 /min Dr. Melina Agosto Work Phone: [facility] 09-25-2023 10:57-0500 Respiratory rate 18 /min Dr. Melina Agosto Work Phone: [facility] 09-25-2023 10:57-0500 SaO2% (BldA) [Mass fraction] 91 % Dr. Melina Agosto Work Phone: [facility] 09-25-2023 10:57-0500 Systolic blood pressure 109 mm[Hg] Dr. Melina Agosto Work Phone: [facility] 01-31-2023 13:16-0400 Body mass index (BMI) [Ratio] 37.3 kg/m2 Dr. Melina Agosto Work Phone: [facility] 01-31-2023 13:16-0400 Body temperature 97.6 [degF] Dr. Melina Agosto Work Phone: [facility] 01-31-2023 13:16-0400 Body weight 117.[address] Melina Agosto Work Phone: [facility] 01-31-2023 13:16-0400 Diastolic blood pressure 69 mm[Hg] Dr. Melina Agosto Work Phone: [facility] 01-31-2023 13:16-0400 Heart rate 78 /min Dr. Melina Agosto Work Phone: [facility] 01-31-2023 13:16-0400 Respiratory rate 22 /min Dr. Melina Agosto Work Phone: [facility] 01-31-2023 13:16-0400 SaO2% (BldA) [Mass fraction] 95 % Dr. Melina Agosto Work Phone: [facility] 01-31-2023 13:16-0400 Systolic blood pressure 122 mm[Hg] Dr. Melina Agosto Work Phone: [facility] 12-28-2022 11:12-0400 Body height 177.[address] Melina Agosto Work Phone: [facility] 12-28-2022 11:12-0400 Body temperature 97.5 [degF] Dr. Melina Agosto Work Phone: [facility] 12-28-2022 11:12-0400 Heart rate 88 /min Dr. Melina Agosto Work Phone: [facility] 12-28-2022 11:12-0400 Respiratory rate 20 /min Dr. Melina Agosto Work Phone: [facility] 12-28-2022 11:12-0400 SaO2% (BldA) [Mass fraction] 92 % Dr. Melina Agosto Work Phone: [facility] 11-14-2022 11:14-0500 Body height 177.[address] Melina Agosto Work Phone: [facility] 11-14-2022 11:14-0500 Body mass index (BMI) [Ratio] 41.1 kg/m2 Dr. Melina Agosto Work Phone: [facility] 11-14-2022 11:14-0500 Body temperature 97.3 [degF] Dr. Melina Agosto Work Phone: [facility] 11-14-2022 11:14-0500 Body weight 130.[address] Melina Agosto Work Phone: [facility] 11-14-2022 11:14-0500 Diastolic blood pressure 76 mm[Hg] Dr. Melina Agosto Work Phone: [facility] 11-14-2022 11:14-0500 Heart rate 76 /min Dr. Melina Agosto Work Phone: [facility] 11-14-2022 11:14-0500 Respiratory rate 20 /min Dr. Melina Agosto Work Phone: [facility] 11-14-2022 11:14-0500 SaO2% (BldA) [Mass fraction] 95 % Dr. Melina Agosto Work Phone: [facility] 11-14-2022 11:14-0500 Systolic blood pressure 161 mm[Hg] Dr. Melina Agosto Work Phone: [facility] 10-29-2022 11:26-0500 Body temperature 97.3 [degF] Dr. Melina Agosto Work Phone: [facility] 10-29-2022 11:26-0500 Body weight 131.[address] Melina Agosto Work Phone: [facility] 10-29-2022 11:26-0500 Diastolic blood pressure 86 mm[Hg] Dr. Melina Agosto Work Phone: [facility] 10-29-2022 11:26-0500 Heart rate 94 /min Dr. Melina Agosto Work Phone: [facility] 10-29-2022 11:26-0500 Respiratory rate 20 /min Dr. Melina Agosto Work Phone: [facility] 10-29-2022 11:26-0500 SaO2% (BldA) [Mass fraction] 94 % Dr. Melina Agosto Work Phone: [facility] 10-29-2022 11:26-0500 Systolic blood pressure 115 mm[Hg] Dr. Melina Agosto Work Phone: [facility] 04-27-2022 12:48-0400 Body temperature 97.5 [degF] Dr. Melina Agosto Work Phone: [facility] Work Phone: 04-27-2022 12:48-0400 Diastolic blood pressure 66 mm[Hg] Dr. Melina Agosto Work Phone: [facility] Work Phone: 04-27-2022 12:48-0400 Heart rate 84 /min Dr. Melina Agosto Work Phone: [facility] Work Phone: 04-27-2022 12:48-0400 Respiratory rate 18 /min Dr. Melina Agosto Work Phone: [facility] Work Phone: 04-27-2022 12:48-0400 SaO2% (BldA) [Mass fraction] 92 % Dr. Melina Agosto Work Phone: [facility] Work Phone: 04-27-2022 12:48-0400 Systolic blood pressure 127 mm[Hg] Dr. Melina Agosto Work Phone: [facility] Work Phone: 04-27-2022 12:00-0400 Inhaled oxygen flow rate 2 L/min Dr. Melina Agosto Work Phone: [facility] Work Phone: 04-27-2022 09:01-0400 Body height 177.[address] Melina Agosto Work Phone: [facility] Work Phone: 04-27-2022 09:01-0400 Body mass index (BMI) [Ratio] 41 kg/m2 Dr. Melina Agosto Work Phone: [facility] Work Phone: 04-27-2022 09:01-0400 Body weight 129.[address] Melina Agosto Work Phone: [facility] Work Phone: 04-03-2022 09:36-0400 Body height 177.[address] Melina Agosto Work Phone: [facility] Work Phone: 04-03-2022 09:36-0400 Body mass index (BMI) [Ratio] 42 kg/m2 Dr. Melina Agosto Work Phone: [facility] Work Phone: 04-03-2022 09:36-0400 Body weight 132.[address] Melina Agosto Work Phone: [facility] Work Phone: 04-03-2022 09:36-0400 Diastolic blood pressure 70 mm[Hg] Dr. Melina Agosto Work Phone: [facility] Work Phone: 04-03-2022 09:36-0400 Heart rate 72 /min Dr. Melina Agosto Work Phone: [facility] Work Phone: 04-03-2022 09:36-0400 Systolic blood pressure 120 mm[Hg] Dr. Melina Agosto Work Phone: [facility] Work Phone: 03-29-2022 08:34-0400 Body mass index (BMI) [Ratio] 42.3 kg/m2 Dr. Melina Agosto Work Phone: [facility] Work Phone: 03-29-2022 08:34-0400 Body temperature 97.3 [degF] Dr. Melina Agosto Work Phone: [facility] Work Phone: 03-29-2022 08:34-0400 Body weight 133.[address] Melina Agosto Work Phone: [facility] Work Phone: 03-29-2022 08:34-0400 Diastolic blood pressure 76 mm[Hg] Dr. Melina Agosto Work Phone: [facility] Work Phone: 03-29-2022 08:34-0400 Heart rate 92 /min Dr. Melina Agosto Work Phone: [facility] Work Phone: 03-29-2022 08:34-0400 Respiratory rate 20 /min Dr. Melina Agosto Work Phone: [facility] Work Phone: 03-29-2022 08:34-0400 SaO2% (BldA) [Mass fraction] 94 % Dr. Melina Agosto Work Phone: [facility] Work Phone: 03-29-2022 08:34-0400 Systolic blood pressure 126 mm[Hg] Dr. Melina Agosto Work Phone: [facility] Work Phone: 01-16-2022 08:32-0400 Body mass index (BMI) [Ratio] 40.3 kg/m2 Dr. Melina Agosto Work Phone: [facility] Work Phone: 01-16-2022 08:32-0400 Body temperature 97.6 [degF] Dr. Melina Agosto Work Phone: [facility] Work Phone: 01-16-2022 08:32-0400 Body weight 127.[address] Melina Agosto Work Phone: [facility] Work Phone: 01-16-2022 08:32-0400 Diastolic blood pressure 74 mm[Hg] Dr. Melina Agosto Work Phone: [facility] Work Phone: 01-16-2022 08:32-0400 Heart rate 80 /min Dr. Melina Agosto Work Phone: [facility] Work Phone: 01-16-2022 08:32-0400 Respiratory rate 16 /min Dr. Melina Agosto Work Phone: [facility] Work Phone: 01-16-2022 08:32-0400 SaO2% (BldA) [Mass fraction] 91 % Dr. Melina Agosto Work Phone: [facility] Work Phone: 01-16-2022 08:32-0400 Systolic blood pressure 114 mm[Hg] Dr. Melina Agosto Work Phone: [facility] Work Phone: 10-24-2021 09:15-0500 Body height 177.[address] Melina Agosto Work Phone: [facility] Work Phone: 10-24-2021 09:15-0500 Body mass index (BMI) [Ratio] 40.1 kg/m2 Dr. Melina Agosto Work Phone: [facility] Work Phone: 10-24-2021 09:15-0500 Body weight [address] Melina Agosto Work Phone: [facility] Work Phone: 10-24-2021 09:15-0500 Diastolic blood pressure 9 mm[Hg] Dr. Melina Agosto Work Phone: [facility] Work Phone: 10-24-2021 09:15-0500 Heart rate 85 /min Dr. Melina Agosto Work Phone: [facility] Work Phone: 10-24-2021 09:15-0500 Respiratory rate 18 /min Dr. Melina Agosto Work Phone: [facility] Work Phone: 10-24-2021 09:15-0500 SaO2% (BldA) [Mass fraction] 90 % Dr. Melina Agosto Work Phone: [facility] Work Phone: 10-24-2021 09:15-0500 Systolic blood pressure 150 mm[Hg] Dr. Melina Agosto Work Phone: [facility] Work Phone: 05-21-2017 08:41-0400 BP Diastolic 78 mm[Hg] [facility] Work Phone: 05-21-2017 08:41-0400 BP Systolic 120 mm[Hg] [facility] Work Phone: 05-21-2017 08:41-0400 Pulse (Heart Rate) 84 /min [facility] Work Phone: 05-21-2017 08:41-0400 Respiratory Rate 21 /min Harshefali Aguila [facility] Work Phone: 05-21-2017 08:41-0400 Weight 126.51 kg [facility] Work Phone: 05-06-2017 07:21-0400 BMI (Body Mass Index) 39.74 kg/m2 [facility] Work Phone: 05-06-2017 07:21-0400 BP Diastolic 70 mm[Hg] [facility] Work Phone: 05-06-2017 07:21-0400 BP Systolic 124 mm[Hg] [facility] Work Phone: 05-06-2017 07:21-0400 Height 177.8 cm [facility] Work Phone: 05-06-2017 07:21-0400 Pulse (Heart Rate) 80 /min [facility] Work Phone: 05-06-2017 07:21-0400 Respiratory Rate 26 /min [facility] Work Phone: 05-06-2017 07:21-0400 Weight 125.65 kg [facility] Work Phone: 11-01-2016 12:58-0500 BMI (Body Mass Index) 39.88 kg/m2 Ubaldo Hassan MD [facility] Work Phone: 11-01-2016 12:58-0500 BP Diastolic 64 mm[Hg] Ubaldo Hassan MD [facility] Work Phone: 11-01-2016 12:58-0500 BP Systolic 140 mm[Hg] Ubaldo Hassan MD [facility] Work Phone: 11-01-2016 12:58-0500 BSA (Body Surface Area) 2.4 m2 Ubaldo Hassan MD [facility] Work Phone: 11-01-2016 12:58-0500 Height 177.8 cm Ubaldo Hassan MD [facility] Work Phone: 11-01-2016 12:58-0500 Pulse (Heart Rate) 96 /min Ubaldo Hassan MD [facility] Work Phone: 11-01-2016 12:58-0500 Pulse Oximetry 96 % Ubaldo Hassan MD [facility] Work Phone: 11-01-2016 12:58-0500 Respiratory Rate 24 /min Ubaldo Hassan MD [facility] Work Phone: 11-01-2016 12:58-0500 Weight 126.1 kg Ubaldo Hassan MD [facility] Work Phone: 09-20-2016 15:35-0500 Heart rate 88 /min [facility] Work Phone: Encounters Encounter Date Encounter Type Care Provider Facility [facility]: [facility] Start: 01-06-2025 End: 01-06-20[facility] Start: 01-06-2025 End: 01-06-2025 ambulatory [facility] Facility:[facility] Start: 12-25-2024 [facility] [place] [facility] Start: 12-04-2024 End: 12-14-[address] Melina Agosto MD Work Phone: [facility] Work Phone: Start: 12-04-2024 End: 12-14-[address] Carlos Raza MD -Cardiac Rehab Work Phone: Start: 11-19-2024 End: 11-19-2024 Patient encounter procedure Penny Esquivel NP-C -[facility] Work Phone: Start: 11-19-2024 End: 11-19-2024 ambulatory Melina Agosto Facility:[facility] Start: 11-13-2024 End: 11-13-2024 ambulatory Carlos Luz Marina Facility:[facility] Start: 11-13-2024 End: 11-13-[address] Carlos Raza MD -Cardiac Rehab Work Phone: Start: 10-16-2024 End: 10-16-2024 ambulatory Carlos Raza Facility:[facility] Start: 10-16-2024 End: 10-16-[address] Carlos Raza MD -Cardiac Rehab Work Phone: Start: 10-14-2024 End: 10-14-2024 Patient encounter procedure Aviva Mayo PA -[facility] Work Phone: Start: 10-14-2024 End: 10-14-2024 ambulatory [facility] Facility:[facility] Start: 09-28-2024 Registered Referred Self Referred -[facility] Work Phone: Start: 09-28-2024 ambulatory [facility] Facility :[facility] Start: 09-14-2024 End: 09-15-2024 ambulatory [facility] Surendra Facility:[facility] Start: 09-14-2024 End: 09-15-[address] Carlos Raza MD -Cardiac Rehab Work Phone: Start: 08-21-2024 End: 08-21-[address] Melina Agosto MD -Laboratory Work Phone: Start: 08-21-2024 End: 08-21-2024 ambulatory Melinasariah Agosto Facility:[facility] Start: 08-12-2024 End: 08-12-2024 ambulatory Melina Surendra Facility:[facility] Start: 08-05-2024 End: 08-05-2024 ambulatory Melina Surendra Facility:[facility] Start: 07-28-2024 ambulatory Melina Surendra Facility :[facility] Start: 07-28-2024 End: 07-29-2024 ambulatory Carlos Raza Facility:[facility] Start: 07-22-2024 ambulatory Melina Surendra Facility :[facility] Start: 07-22-2024 End: 07-22-2024 ambulatory Melina Surendra Facility:[facility] Start: 07-15-2024 End: 07-15-2024 ambulatory Melina Agosto Facility:[facility] Start: 07-15-2024 End: 07-15-2024 ambulatory Melina Agosto Facility:[facility] Start: 07-13-2024 End: 07-13-2024 ambulatory Melina Agosto Facility:[facility] Start: 06-22-2024 ambulatory Melina Agosto Facility :[facility] Start: 06-16-2024 End: 06-16-2024 ambulatory Melina Agosto Facility:[facility] Start: 06-11-2024 ambulatory Melina Agosto Facility :[facility] Start: 06-11-2024 End: 06-11-2024 ambulatory Melinasariah Agosto Facility:[facility] Start: 06-08-2024 ambulatory Melina Agosto Facility :[facility] Start: 06-02-2024 End: 06-02-2024 ambulatory Melina Agosto Facility:[facility] Start: 04-28-2024 End: 04-28-2024 ambulatory Melina Agosto Facility:[facility] Start: 03-09-2024 End: 03-09-2024 ambulatory Melina Agosto Facility:[facility] Start: 12-04-2023 End: 12-04-[address] Melina Agosto Work Phone: [facility] Work Phone: Start: 12-04-2023 End: 12-04-[address] Melina Agosto Work Phone: [facility]-Laboratory Work Phone: Start: 10-28-2023 End: 10-28-[address] Melina Agosto Work Phone: [facility] Work Phone: Start: 10-28-2023 End: 10-28-[address] Melina Agosto Work Phone: [facility] Work Phone: Start: 09-25-2023 End: 09-25-[address] Melina Agosto Work Phone: [facility] Work Phone: Start: 09-25-2023 End: 09-25-[address] [facility] Start: 09-25-2023 End: 09-25-[address] Melina Agosto Work Phone: [facility] Work Phone: Start: 06-03-2023 End: 06-03-[address] [facility] Work Phone: Start: 12-28-2022 End: 12-28-[address] Melina Agosto Work Phone: [facility] Start: 12-25-2022 End: 12-25-[address] Melina Agosto Work Phone: [facility] Work Phone: Start: 12-25-2022 End: 12-25-[address] Melina Agosto Work Phone: [facility]-Laboratory, Specimen Start: 12-04-2022 End: 12-04-[address] Melina Agosto Work Phone: [facility] Work Phone: Start: 12-04-2022 End: 12-04-[address] Melina Agosto Work Phone: [facility]-Laboratory, Specimen Start: 11-14-2022 End: 11-14-[address] Melina Agosto Work Phone: [facility] Start: 10-29-2022 End: 10-29-[address] Melina Agosto Work Phone: [facility] Work Phone: Start: 10-29-2022 End: 10-29-[address] [facility] Start: 10-29-2022 End: 10-29-[address] Melina Agosto Work Phone: [facility] Start: 04-27-2022 End: 04-27-2022 Admission to same day surgery center Dr. Melina Agosto [facility] Start: 04-05-2022 End: 04-05-[address] [facility] Start: 04-03-2022 End: 04-03-[address] Melina Agosto Work Phone: [facility] Start: 03-29-2022 End: 03-29-[address] Melina Agosto Work Phone: [facility] Start: 02-28-2022 End: 02-28-[address] Melina Agosto Work Phone: [facility]-Pulmonary Services/Neurology Start: 01-16-2022 End: 01-16-[address] Melina Agosto Work Phone: [facility] Start: 12-22-2021 End: 12-22-[address] Mel[facility] Agosto [facility] Start: 10-24-2021 End: 10-24-[address] Melina Agosto [facility] Start: 10-24-2021 End: 10-24-[address] Melina Agosto Work Phone: [facility] Procedures Date Procedure Procedure Detail Performing Clinician Start: 07-28-2024 History of placement of stent for coronary artery disease History of coronary artery stent placement Aviva BROWN Start: 04-27-2022 Cysto,Transurethra R esec BladderTum MitC (Not Applicable) Dr. Melina Agosto Work Phone: Start: 04-05-2022 Plain chest X-ray Dr. Reno Agosto Work Phone: Start: 05-21-2017 End: 05-21-2017 Follow Up BP Check Ubaldo Hassan MD Work Phone: Start: 05-06-2017 End: 05-06-2017 Dietary management education, guidance, and counseling [facility] Start: 05-06-2017 End: 05-06-2017 KARTHIKEYAN Hassan MD Work Phone: Start: 05-06-2017 End: 05-06-2017 Follow Up Appt 6 months Ubaldo Hassan MD Work Phone: Start: 11-01-2016 End: 04-30-2017 KARTHIKEYAN Hassan MD Work Phone: Start: 11-01-2016 End: 04-30-2017 Follow Up Appt 6 months Ubaldo Hassan MD Work Phone: Start: 11-01-2016 End: 04-30-2017 Pulmonary stress test/simple Ubaldo Hassan MD Work Phone: Start: 09-20-2016 [...] MD Work Phone: Start: 07-31-2016 End: 09-04-2016 DJN Ubaldo Hassan MD Work Phone: Start: 07-31-2016 End: 08-03-2016 Echocardiography Ubaldo Hassan MD Work Phone: Start: 07-31-2016 End: 08-03-2016 Electrocardiogram, complete Ubaldo granda MD Work Phone: Start: 07-31-2016 End: 09-04-2016 Follow Up Appt 1 month Ubaldo Hassan MD Work Phone: Start: 07-31-2016 End: 08-16-2016 Stress Echocardiogram - Dobutamine Ubaldo Hassan MD Work Phone: History of repair of musculotendinous cuff of shoulder History of repair of rotator cuff Dr. Melina Agosto Work Phone: Comment on above: RIGHT X2 Plan of Treatment Date Care Activity Detail Author Start: 09-25-2023 Testosterone measurement [facility] Start: 04-27-2022 Ambulation without limitation [facility] Work Phone: Start: 04-27-2022 Medication education [facility] Work Phone: Start: 04-27-2022 Patient discharge [facility] Work Phone: Start: 04-27-2022 Planned voiding [facility] Work Phone: Start: 04-27-2022 Taking patient vital signs [facility] Work Phone: Start: 04-27-2022 [facility] Work Phone: Start: 11-04-2017 End: 11-04-2017 Appointment Appointment [facility] Work Phone: Start: 05-21-2017 End: 05-21-2017 Appointment Appointment [facility] Work Phone: Start: 05-21-2017 End: 05-06-2017 Follow Up BP Check Follow Up BP Check [facility] Work Phone: Start: 05-06-2017 End: 05-06-2017 Appointment Appointment [facility] Work Phone: Start: 05-06-2017 End: 05-06-2017 KARTHIKEYAN NAPIER [facility] Work Phone: Start: 05-06-2017 End: 05-06-2017 Follow Up Appt 6 months Follow Up Appt 6 months [facility] Work Phone: Start: 05-06-2017 End: 05-21-2017 Pulmonary Referral [facility] Work Phone: Start: 11-01-2016 End: 04-30-2017 KARTHIKEYAN NAPIER [facility] Work Phone: Start: 11-01-2016 End: 04-30-2017 Follow Up Appt 6 months Follow Up Appt 6 months [facility] Work Phone: Start: 11-01-2016 End: 11-01-2016 Pulmonary stress test/simple Pulmonary stress testing; simple (eg, 6-minute walk) [facility] Work Phone: Start: 09-20-2016 End: 09-20-2016 *BMP *BMP [facility] Work Phone: Start: 09-20-2016 End: 09-20-2016 aPTT *PTT-Partial Thromboplastin Time [facility] Work Phone: Start: 09-20-2016 End: 09-20-2016 aPTT Coag time (PPP) *PTT-Partial Thromboplastin Time [facility] Work Phone: Start: 09-20-2016 End: 09-20-2016 CBC W Auto Differential panel - Blood *CBC without Diff [facility] Work Phone: Start: 09-20-2016 End: 09-28-2016 Chest x-ray X-Ray, Chest, PA & Lateral [facility] Work Phone: Start: 09-20-2016 End: 09-20-2016 Coagulation factor induced.INR assay in platelet poor plasma *PT/INR [facility] Work Phone: Start: 09-20-2016 End: 09-20-2016 KARTHIKEYAN NAPIER [facility] Work Phone: Start: 09-20-2016 End: 09-20-2016 Electrocardiogram, complete EKG (In office) [facility] Work Phone: Start: 09-20-2016 End: 09-20-2016 Follow Up Appt 1 month Follow Up Appt 1 month [facility] Work Phone: Start: 09-20-2016 End: 09-20-2016 Left & Right Heart Cath Left & Right Heart Cath [facility] Work Phone: Start: 07-31-2016 End: 09-04-2016 KARTHIKEYAN NAPIER [facility] Work Phone: Start: 07-31-2016 End: 07-31-2016 Echocardiography Echocardiogram (complete) [facility] Work Phone: Start: 07-31-2016 End: 08-03-2016 Electrocardiogram, complete EKG (In office) [facility] Work Phone: Start: 07-31-2016 End: 09-04-2016 Follow Up Appt 1 month Follow Up Appt 1 month [facility] Work Phone: Start: 07-31-2016 End: 07-31-2016 Stress Echocardiogram - Dobutamine Stress Echocardiogram - Dobutamine [facility] Work Phone: CT Abdomen and Pelvi s W contrast IV [facility] CT Abdomen and Pelvi s WO and W contrast IV [facility] Hepatic function panel [facility] Lipid 1996 panel - S anurag or Plasma [facility] Measurement of respi ratory function [facility] Patient referral [facility] Work Phone: Prostate specific an tigen measurement [facility] Testosterone Free [Mass/volume] in Serum or Plasma [facility] Vitamin B6 measurement [facility] Work Phone: [facility] Immunizations Immunization Date Immunization Notes Care Provider Fa cility 06-02-2024 influenza, injectabl e, quadrivalent, preservative free Dr. Melina Agosto MD Work Phone: [facility] 06-03-2023 influenza, injectabl e, quadrivalent, preservative free Dr. Melina Agosto Work Phone: [facility] 08-16-2015 tetanus toxoid, redu milagro diphtheria toxoid, and acellular pertussis vaccine, adsorbed Dr. Melina Agosto Work Phone: [facility] 2011 pneumococcal polysaccharide vaccine, [address] Melina Agosto Work Phone: [facility] 05-25-2011 pneumococcal conjuga te vaccine, [address] Melina Agosto Work Phone: [facility] Payers Date Payer Category Payer Self-pay [id number] 2016 Medicare [id number] Medicare MEDICARE PART A B [id number] Unknown [id number] Unknown [id number] 2.16.8 [id number] Unknown [id number] 2.16.8 [id number] Unknown [id number] 2.16.8 [id number] Unknown [id number] 2.16.8 [id number] Unknown [id number] 2.16.8 [id number] Unknown [id number] 2.16.8 [id number] Unknown [id number] 2.16.8 [id number] Unknown [id number] 2.16.8 [id number] Unknown [id number] 2.16.8 40.1.444308.3.579.2.462 Unknown [id number] 2.16.8 40.1.957137.3.579.2.462 Unknown [id number] 2.16.8 40.1.272622.3.579.2.462 Unknown [id number] 2.16.8 40.1.127291.3.579.2.462 Unknown [id number] 2.16.8 40.1.833062.3.579.2.462 Unknown [id number] 2.16.8 40.1.045484.3.579.2.462 Unknown [id number] 2.16.8 40.1.069897.3.579.2.462 Unknown [id number] 2.16.8 40.1.780061.3.579.2.462 Unknown [id number] 2.16.8 40.1.088889.3.579.2.462 Unknown [id number] 2.16.8 40.1.756845.3.579.2.462 Unknown [id number] 2.16.8 40.1.235062.3.579.2.462 Unknown [id number] 2.16.8 40.1.157830.3.579.2.462 Unknown [id number] 2.16.8 40.1.990703.3.579.2.462 Unknown [id number] 2.16.8 40.1.169287.3.579.2.462 Unknown [id number] 2.16.8 40.1.870600.3.579.2.462 Unknown [id number] 2.16.8 40.1.826004.3.579.2.462 Unknown [id number] 2.16.8 40.1.318083.3.579.2.462 Unknown [id number] 2.16.8 40.1.535241.3.579.2.462 Unknown [id number] 2.16.8 40.1.388456.3.579.2.462 Unknown [id number] 2.16.8 40.1.611973.3.579.2.462 Unknown [id number] 2.16.8 40.1.329044.3.579.2.462 Unknown [id number] 2.16.8 40.1.407923.3.579.2.462 Unknown [id number] 2.16.8 40.1.892571.3.579.2.462 Unknown [id number] 2.16.8 40.1.152570.3.579.2.462 Social History Date Type Detail Facility Start: 10-24-2021 End: 09-25-2023 Tobacco smoking status CAIS Unknown if ever smoked [facility] Start: 1945 Sex Assigned At Male [facility] Start: 08-12-2024 [facility] Start: 12-15-2024 Sex Male (finding) [facility] Medical Equipment Procedure Code Equipment Code Equipment Origin al Text Equipment Identifier Dates Drug-eluting coronary artery stent, [id number] lymer-coated ([id number] FDA Start: 07-28-2024 Blood Sugar Diagnostic (Blood Glucose Test) strip Start: 10-07-2024 Lancets misc Start: 09-14-2024 Blood Sugar Diagnostic (Blood Glucose Test) strip Start: 09-14-2024 End: 10-07-2024 Goals Date Patient Goal Desired Activity /State Mental Status Date Assessment Result Facility 04-27-2022 Cognitive function Voice/Name [facility] Work Phone: Clinical Notes 11-27-2021 to 10-14-2024 Note Date & Type Note Facility 10-14-2024 Evaluation note Diagnosis Onset Date Resolution Dizziness acute October 14, 2024 8:47am FORMAN (dyspnea on exertion) acute October 14, 2024 8:47am History of coronary artery stent placement July 28, 2024 acute October 14, 2024 8:47am Essential hypertension chronic October 14, 2024 8:47am Hyperlipidemia chronic October 142024 8:47am Diastolic CHF with preserved left ventricular function, NYHA class 2 suspected October 14, 2024 8:47am Asthma chronic November 19 9:05am Morbid obesity due to excess calories chronic November 19 9:05am Obstructive sleep apnea chronic November 19, 2024 9:05am Diastolic CHF with preserved left ventricular function, NYHA class 2 suspected November 19, 2024 9:05am [facility] Work Phone: 1(921) 313-454703-14-2022 NoteHNO ID: [id number] Author: Aidee Monterroso Ma Service: ? Author Type: ? Type: Progress Notes Filed: 11/27/2021 3:34 PM Note Text: PCP updated. Aidee Monterroso [facility]03-14-2022 NoteHNO ID: [id number] Author: Gemini Varghese RN Service: ? Author Type: Registered Nurse Type: Progress Notes Filed: 11/27/2021 3:34 PM Note Text: Patient calls in to let provider know that he has changed providers. Current PCP is Dr. Melina Agosto. [facility] NoteHNO ID: [id number] Author: Aidee Monterroso Ma Service: ? Author Type: ? Type: Progress Notes Filed: 11/27/2021 3:34 PM Note Text: POPULATION HEALTH NAVIGATION OUTREACH Action/11/27/21-message left for pt to call back. Needs appt or update PCP. Pt identified by name and : NO Outreach Outcome/Action Unable to reach patient: Left message Reason for Outreach Care Gap or Scheduling/Wellness visits Payer: Payor: [employer]VANTAGE / [place] / Product Type: HMO / Care [...] Aidee Monterroso Ma November 27, 2021 1:01 [facility]03-14-2022 NoteHNO ID: [id number] Author: Aidee Monterroso Ma Service: ? Author Type: ? Type: Progress Notes Filed: 11/27/2021 12:59 PM Note Text: See outreach encounter. Aidee Monterroso [facility]03-14-2022 NotePatient Outreach (PRISCILLA) APARNA CARRERA ([id number]) 1945 M Date Time Provider Department 11/27/21 AIDEE MONTERROSO During your visit today, we recorded the following information about you: Aidee Monterroso Ma 11/27/2021 3:34 PM Signed POPULATION HEALTH NAVIGATION OUTREACH Action/11/27/21-message left for pt to call back. Needs appt or update PCP. Pt identified by name and : NO Outreach Outcome/Action Unable to reach patient: Left message Reason for Outreach Care Gap or Scheduling/Wellness visits Payer: Payor: [employer]ARE ADVANTAGE / [place] / Product Type: HMO / Care [...] Assessed Reason for Visit: PHMA/Care Gap Outreach [3605] Prescriptions as of 11/27/2021 - tamsulosin ER [...] Meds Comments as of 08/25/2019: Turmeric, Tums, Doerun-3, Garligue, Yael Root - daily. Problem List As Of Date 11/27/2021 Noted Resolved SYEDA (obstructive sleep apnea) [G47.33] COPD (chronic obstructive pulmonary disease) [J* Thyroid disorder [E07.9] Bronchitis [J40] Asbestosis [J61] Hypertension, essential [I10] 08/26/2020 Hypothyroidism, acquired [E03.9] 08/26/2020 Encounter Status:Closed by AIDEE MONTERROSO MA on 11/27/21[facility] NotePatient Outreach (FAMPWS) APARNA CARRERA ([id number]) 1945 M Date Time Provider Department 11/27/21 JAREK THAKUR During your visit today, we recorded the following information about you: Jarek Thakur APRN.CNP 11/27/2021 12:59 PM Signed STAMP Please reach out to patient for overdue appointment for chronic disease management with myself, Dr. Sood, or Bria Oro. Labs are ordered. If he/she is no longer following with Dr. Sood, please remove name from PCP field. Jarek Thakur APRN.URSZULA Monterroso Ma 11/27/2021 12:59 PM Signed See [...] cholesterol [E78.00] Order(s):TSH BLD [SQTSH] Order #: [id number] FUTURE COMP METABOLIC PANEL [SQCMP] Order #: [id number] FUTURE LIPID PANEL BASIC [SQLIPB] Order #: [id number] FUTURE HGB A1C [GOEES2X] Order #: [id number] FUTURE Prescriptions as of 11/27/2021 - tamsulosin [...] Meds Comments as of 08/25/2019: Turmeric, Tums, Doerun-3, Garligue, Yael Root - daily. Problem List As Of Date 11/27/2021 Noted Resolved SYEDA (obstructive sleep apnea) [G47.33] COPD (chronic obstructive pulmonary disease) [J* Thyroid disorder [E07.9] Bronchitis [J40] Asbestosis [J61] Hypertension, essential [I10] 08/26/2020 Hypothyroidism, acquired [E03.9] 08/26/2020 Encounter Status:Closed by AIDEE MONTERROSO MA on 11/27/21[facility]03-14-2022 NoteHNO ID: [id number] Author: Jarek Thakur APRN.URSZULA Service: ? Author Type: Nurse Practitioner Type: Progress Notes Filed: 11/27/2021 12:59 PM Note Text: STAMP Please reach out to patient for overdue appointment for chronic disease management with myself, Dr. Sood, or Bria Oro. Labs are ordered. If he/she is no longer following with Dr. Sood, please remove name from PCP field. 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 [facility] Work Phone: Evaluation note* Diagnosis Onset Date Resolution Status BPH (benign prostatic hyperplasia) acute Hypothyroidism acute Essential hypertension chron ic Hyperlipidemia chronic Obesity (BMI 30-39.9) chroni c Obstructive sleep apnea 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 eitan BPH (benign prostatic hyperplasia) acute Hypothyroidism acute Peripheral neuropathy acute Essential hypertension chron ic Hyperlipidemia chronic 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 Obesity (BMI 30-39.9) chroni c Obstructive sleep apnea 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 eitan FORMAN (dyspnea on exertion) ac [place] [employer] [place] Essential hypertension chron ic Obstructive sleep apnea 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 [facility] Work Phone: Evaluation note* Diagnosis Onset Date Resolution Status Elevated blood sugar acute Hypothyroidism acute Morbid obesity due to excess calories acute Shortness of breath acute Essential hypertension chron ic Hyperlipidemia chronic Obstructive sleep apnea 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 [facility] Work Phone: Evaluation note* Diagnosis Onset Date Resolution Status Elevated blood sugar acute Hypothyroidism acute Morbid obesity due to excess calories acute Shortness of breath acute Essential hypertension chron ic Hyperlipidemia chronic Obstructive sleep apnea 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 eitan Abdominal obesity chronic Elective procedure for unacceptable cosmetic appearanc e chronic Former smoker chronic Protuberant abdomen chronic [facility] Work Phone: Evaluation note* Diagnosis Onset Date Resolution Status Elevated blood sugar acute Hypothyroidism acute Morbid obesity due to excess calories acute Shortness of breath acute Essential hypertension chron ic Hyperlipidemia chronic Obstructive sleep apnea 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 eitan Abdominal obesity chronic Elective procedure for unacceptable cosmetic appearanc e chronic Former smoker chronic Protuberant abdomen chronic Abdominal obesity chronic Elective procedure for unacceptable cosmetic appearanc e chronic Former smoker chronic Protuberant abdomen [facility] Work Phone: Evaluation note* Diagnosis Onset Date Resolution Status Morbid obesity due to excess calories acute Asthma chronic Bronchiectasis chronic Obstructive sleep apnea 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 eitan Fatigue acute Hypothyroidism acute Peripheral neuropathy acute Abdominal obesity chronic Essential hypertension chron ic Hyperlipidemia chronic Obstructive sleep apnea [facility] Work Phone: Evaluation note* Diagnosis Onset Date Resolution Status Fatigue acute Hypothyroidism acute Peripheral neuropathy acute Abdominal obesity chronic Essential hypertension chron ic Hyperlipidemia chronic Obstructive sleep apnea [facility] Work Phone: Reason for referral (narrative)No reason for referral information availableWAdena [facility] Work Phone: Summary Purpose Family History No Family History Records Found Relationship Condition Age at Onset Recorded Date/T salvador father Coronary artery disease Unknown Relationship Condition Age at Onset Recorded Date/T salvador Not Specified Asthma Unknown father Coronary artery disease Unknown Advance Directives No Advanced Directives Records Found Advance Directive Response Recorded Date/ Time Advance Directives No September 28, 2016 8:07am Living Will No February 16, 2018 1 :11pm Power of Store Receiver No February 16, 2018 1:11pm Advance Directive Response Recorded Date/ Time Name of Medical Power of Store Receiver NOEMI [email or web address] April 20, 2022 10:45am Advance Directives No September 28, 2016 8:07am Living Will Yes April 20, 2022 10:45am Power of Store Receiver Yes April 20 10:45am Advance Directive Response Recorded Date/ Time Advance Directives No September 28, 2016 7:07am Living Will Yes April 20, 2022 9:45am Power of Store Receiver Yes April 20 9:45am Advance Directive Response Recorded Date/ Time Advance Directives No September 28, 2016 8:07am Living Will Yes April 20, 2022 10:45am Power of Store Receiver Yes April 20 10:45am Advance Directive Response Recorded Date/ Time Advance Directives No January 31 12:16pm Living Will Yes January 31, 2023 1 2:16pm Power of Store Receiver Yes January 31, 2023 12:16pm Advance Directive Response Recorded Date/ Time Advance Directives No January 31 1:16pm Living Will Yes January 31, 2023 1 :16pm Power of Store Receiver Yes January 31, 2023 1:16pm Advance Directive Response Recorded Date/ Time Living Will Yes January 31, 2023 1 :16pm Do you have a Healthcare Power of Store Receiver? Yes January 31, 2023 1:16pm Advance Directives Yes July 8:19am Chief Complaint and Reason for Visit Chief Complaint 4 M FU Reason for Visit BPH (benign prostati c hyperplasia) Hypothyroidism Rash and nonspecific skin eruption Shortness of breath Essential hypertension Hyperlipidemia Nicotine dependence in remission Obesity (BMI 30-39.9) Obstructive sleep apnea Chief Complaint 3 M FU BILAT LOWER PARESTHESIA OF SKIN follow up 1 Y FU INT LAB/RAD Reason for Visit BPH (benign prostati c hyperplasia) Hypothyroidism Essential hypertension Hyperlipidemia Obesity (BMI 30-39.9) Obstructive sleep apnea BPH (benign prostatic hyperplasia) Hypothyroidism Peripheral neuropathy Essential hypertension Hyperlipidemia Nicotine dependence in remission Obesity (BMI 30-39.9) Obstructive sleep apnea FORMAN (dyspnea on exertion) Essential hypertension Obstructive sleep apnea Chief Complaint 3 M FU BILAT LOWER PARESTHESIA OF SKIN follow up 1 Y FU INT LAB/RAD [employer]STO [employer] C Reason for Visit BPH (benign prostati c hyperplasia) Hypothyroidism Essential hypertension Hyperlipidemia Obesity (BMI 30-39.9) Obstructive sleep apnea BPH (benign prostatic hyperplasia) Hypothyroidism Peripheral neuropathy Essential hypertension Hyperlipidemia Nicotine dependence in remission Obesity (BMI 30-39.9) Obstructive sleep apnea FORMAN (dyspnea on exertion) Essential hypertension Obstructive sleep apnea Chief Complaint Weight loss, FU E ORDER Reason for Visit Elevated blood sugar Hypothyroidism Morbid obesity due to excess calories Shortness of breath Essential hypertension Hyperlipidemia Obstructive sleep apnea Chief Complaint Weight loss, FU E ORDER N/P Lipo GROWTH OF EYELID Reason for Visit Elevated blood sugar Hypothyroidism Morbid obesity due to excess calories Shortness of breath Essential hypertension Hyperlipidemia Obstructive sleep apnea Abdominal obesity Elective procedure for unacceptable cosmetic appearance Former smoker Protuberant abdomen Chief Complaint Weight loss, FU E ORDER N/P Lipo GROWTH OF EYELID Follow up Reason for Visit Elevated blood sugar Hypothyroidism Morbid obesity due to excess calories Shortness of breath Essential hypertension Hyperlipidemia Obstructive sleep apnea Abdominal obesity Elective procedure for unacceptable cosmetic appearance Former smoker Protuberant abdomen Abdominal obesity Elective procedure for unacceptable cosmetic appearance Former smoker Protuberant abdomen Chief Complaint 1 Y FU 8 M FU E ORDERS Reason for Visit Morbid obesity due t o excess calories Asthma Bronchiectasis Obstructive sleep apnea Fatigue Hypothyroidism Peripheral neuropathy Abdominal obesity Essential hypertension Hyperlipidemia Obstructive sleep apnea Chief Complaint 8 M FU E ORDERS Reason for Visit Fatigue Hypothyroidism Peripheral neuropathy Abdominal obesity Essential hypertension Hyperlipidemia Obstructive sleep apnea Chief Complaint Admit Date PCI with stent September 14, 2024 2:15pm SCREENING September 28, 2024 8 :32am 3 M FU October 14, 2024 8 :47am PCI with stent October 16, 2024 2 :15pm PCI with stent November 13, 2024 2:15pm 6 M November 19, 2024 9:05 am PCI with stent December 04, 2024 2:1 5pm Reason for Visit Admit Date Dizziness October 14, 2024 8 :47am FORMAN (dyspnea on exertion) October 14, 2024 8:47am History of coronary artery stent placeme nt October 14, 2024 8:47am Essential hypertension October 14 8:47am Hyperlipidemia October 14, 2024 8 :47am Diastolic CHF with preserved left ventricular function, NYHA class 2 October 14, 2024 8:47am Asthma November 19, 2024 9:05 am Morbid obesity due to excess calories [facility] 2024 9:05am Obstructive sleep apnea November 19, 2024 9:05am Diastolic CHF with preserved left ventricular function, NYHA class 2 November 19, 2024 9:05am Additional Source Comments (unrecognized sect ion and content) No Status Records FoundNo Status Records FoundNo Status Records Found INFORMATION SOURCE (unrecogn ized section and content) DATE CREATED AUTHOR 03/11/2018 [facility] DATE CREATED AUTHOR AUTHOR'S ORGANIZ ATION 12/06/2021 [facility] DATE CREATED AUTHOR AUTHOR'S ORGANIZ ATION 01/12/2025 [facility] Goals (unrecognized section and content) Goals may be documented in a n alternate sectionGoals may be documented in an alternate sectionGoals may be documented in an alternate sectionGoals may be documented in an alternate sectionGoals may be documented in an alternate sectionGoals may be documented in an alternate sectionGoals may be documented in an alternate sectionGoals may be documented in an alternate sectionGoals may be documented in an alternate section Care Teams (unrecognized sec tion and content) Team Status: Active Member Role Status Dates Dr. Frank Sood MD Family Provider Active Dr. Melina Agosto MD Primary Care Provider Active Team Status: Inactive Member Role Status Dates Dr. Melina Agosto MD Primary Care Provider, Attendi ng Provider Active Team Status: Inactive Member Role Status Dates Dr. Melina Agosto MD Primary Care Pro vider, Attending Provider, Referring Provider Active Team Status: Inactive Member Role Status Dates Dr. Melina Agosto MD Primary Care Provider, Referri ng Provider Active Dr. German Richardson MD Attending Provider Active Team Status: Inactive Member Role Status Dates Dr. Melina Agosto MD Primary Care Provider Active Dr. Sergio Pack MD Attending Provider, Referring P david Active Team Status: Inactive Member Role Status Dates Dr. Melina Agosto MD Primary Care Provider Active Dr. Ean Marquez MD Attending Provider, Referr ing Provider Active Team Status: Inactive Member Role Status Dates Dr. Melina Agosto MD Primary Care Provider, Referri ng Provider Active Dr. Stewart Bob MD Attending Provider Active Team Status: Active Member Role Status Dates Dr. Melina Agosto MD Primary Care Provider Active Team Status: Inactive Member Role Status Dates Dr. Melina Agosto MD Primary Care Provider Active Start: August 21, 2024 End: August 21, 2024 Dr. Melina Agosto MD Attending Provider Active Start: August 21, 2024 End: August 21, 2024 Dr. Melina Agosto MD Referring Provider Active Start: August 21, 2024 End: August 21, 2024 Team Status: Inactive Member Role Status Dates Dr. Melina Agosto MD Primary Care Provider Active Start: September 14, 2024 End: September 15, 2024 Dr. Carlos Raza MD Attending Provider Active S tart: September 14, 2024 End: September 15, 2024 Dr. Carlos Raza MD Referring Provider Active S tart: September 14, 2024 End: September 15, 2024 Team Status: Active Member Role Status Dates Dr. Melina Agosto MD Primary Care Provider Active Start: September 28, 2024 Self Referred Attending Provider Active Start: J anuary 2024 Self Referred Referring Provider Active Start: J anuary 2024 Team Status: Inactive Member Role Status Dates Dr. Melina Agosto MD Primary Care Provider Active Start: October 14, 2024 End: October 14, 2024 Dr. Melina Agosto MD Referring Provider Active Start: October 14, 2024 End: October 14, 2024 Aviva Mayo PA, PA Attending Provider Active Start: October 14, 2024 End: October 14, 2024 Team Status: Inactive Member Role Status Dates Dr. Melina Agosto MD Primary Care Provider Active Start: October 16, 2024 End: October 16, 2024 Dr. Carlos Raza MD Attending Provider Active S tart: October 16, 2024 End: October 16, 2024 Dr. Carlos Raza MD Referring Provider Active S tart: October 16, 2024 End: October 16, 2024 Team Status: Inactive Member Role Status Dates Dr. Melina Agosto MD Primary Care Provider Active Start: November 13, 2024 End: November 13, 2024 Dr. Carlos Raza MD Attending Provider Active S tart: November 13, 2024 End: November 13, 2024 Dr. Carlos Raza MD Referring Provider Active S tart: November 13, 2024 End: November 13, 2024 Team Status: Inactive Member Role Status Dates Dr. Melina Agosto MD Primary Care Provider Active Start: November 19, 2024 End: November 19, 2024 Dr. Melina Agosto MD Referring Provider Active Start: November 19, 2024 End: November 19, 2024 Penny Esquivel SALESPERSON [employer]JECT[employer], SALESPERSON [employer] OBJECTS-C Attending Provider Active Start: November 19, 2024 End: November 19, 2024 Team Status: Inactive Member Role Status Dates Dr. Melina Agosto MD Primary Care Provider Active Start: December 04, 2024 End: December 14, 2024 Dr. Carlos Raza MD Attending Provider Active S tart: December 04, 2024 End: December 14, 2024 Dr. Carlos Raza MD Referring Provider Active S tart: December 04, 2024 End: December 14, 2024 FOR RECORDS PERTAINING TO PATIENTS WHO ARE [...] BE BASED ON THE PRIMARY CLINICAL RECORDS. [facility]. provides no warranty or guarantee of the accuracy or completeness of information in this document.
[2025-05-08 09:30] LABS: Troponin T High Sensitivity 25 ng/L (<=22)
[2025-05-08 09:32] LABS: Lipase 17 U/L (13-75)
[2025-05-08 09:45] LABS: CPK Total, Creatine Kinase 6557 U/L (24-195)
[2025-05-08 09:54] LABS: AST(SGOT) 246 U/L (<=37); Alanine Aminotransfer ALT/SGPT 230 U/L (<=46); Albumin, Serum 3.8 g/dL (3.4-4.8); Alkaline Phosphatase 141 U/L (40-129); Anion Gap 17 (5-15); BUN 17 mg/dL (4-19); BUN/Creat Ratio 13.6 RATIO (10-20); Calcium,Total 9.3 mg/dL (7.6-11.0); Carbon Dioxide 24.3 mmol/L (21.0-32.0); Chloride 97 mmol/L (98-108); Estimated Creatinine Clearance 61.43 ml/min (50-250); Globulin 3.2 g/dL (2.2-4.2); Glucose 134 mg/dL (70-99); Potassium 3.9 mmol/L (3.3-5.1)
[2025-05-08 11:15] LABS: Troponin T High Sens 2 HR 29 ng/L (<=22)
--- NOTE | 2025-05-08 11:52 | CM.ED ---
Social Work: Date of referral: 05/08/25 Reason for referral: Advanced Care Directives (ACD's) not on file. Referred by: Social Work Identification Patient provided consent to social work visit. Marine Tower Operator requested a copy of ACD's which patient was agreeable to bringing in. Patient lives alone but has a friend/neighbor/landlord (Miguelito Day) who is a support that patient has left a message for and who can help take care of patient's cat. Patient stated the reason he wasn't wearing his emergency response device is because he normally takes it off at night to charge. Patient has both a watch and a pendant. Watch is broken, pendant is not. Patient stated his bed is too soft which made him slide off the bed and patient plans on getting new, firmer bed. Other fall was said to be due to weakness. Patient stated he may have actually had something to eat/drink Th morning but not since due to pain. Patient denied any additional concerns/needs at this time. Luz Huertas, UNIT SUPPORT REPRESENTATIVE, ICU TECH
[2025-05-08 12:36] LABS: Mucous, Urine 0 SEEN /hpf (<or=2+); Red Blood Cells-Urine 0 SEEN /hpf (0-5)
[2025-05-08 12:40] LABS: Color, Urine Yellow (Yellow); Glucose, Dipstick Normal (Normal); Ketone-Dipstick 5 mg/dl (Negative); Leukocyte Esterase-Dipstick 25 /ul (Negative); Nitrite-Dipstick Negative (Negative); Occult Blood-Urine 250 /ul (Negative); Protein-Dipstick 30 mg/dl (Negative); Specific Gravity, Urine 1.020 (1.002-1.030)
[2025-05-08 12:41] LABS: Urine Bilirubin Dipstick 3 mg/dL (Negative)
[2025-05-08 12:47] LABS: Squamous Epithelial Cells - UA 0-5 SEEN /hpf (0-5)
[2025-05-08] MEDS: metroNIDAZOLE 500 MG/100 ML BAG 100 MG IV (13:26)
[2025-05-08 13:58] LABS: Troponin T High Sens 4 HR 32 ng/L (<=22)
--- NOTE | 2025-05-08 20:06 | NURSING ---
Report given to Transport team.
== END 2025-05-08 20:07 | disposition short-term general hospital (02) ==
PROVIDERS: Emergency Provider Emergency Medicine; PCP Internal Medicine; Visit Provider Emergency Medicine
DX: K80.62 Calculus of gallbladder and bile duct with acute cholecystitis without obstruction (principal); J43.9 Emphysema, unspecified; N17.9 Acute kidney failure, unspecified; M62.82 Rhabdomyolysis; I25.10 Atherosclerotic heart disease of native coronary artery without angina pectoris; I10 Essential (primary) hypertension; E78.00 Pure hypercholesterolemia, unspecified; G47.33 Obstructive sleep apnea (adult) (pediatric); R79.89 Other specified abnormal findings of blood chemistry; E03.9 Hypothyroidism, unspecified; K21.9 Gastro-esophageal reflux disease without esophagitis; Z88.0 Allergy status to penicillin; Z79.82 Long term (current) use of aspirin; Z79.02 Long term (current) use of antithrombotics/antiplatelets; Z79.890 Hormone replacement therapy; Z79.899 Other long term (current) drug therapy; Z87.891 Personal history of nicotine dependence
CPT/HCPCS: 71045; 76705; 80053; 81001; 82550; 83690; 84484; 85025; 93005; 96365; 96366; 96367; 99285; A4216; J0744

== ENCOUNTER → 2025-06-03 | Outpatient (CLI) | payer MEDICARE, SELFPAY ==
[2024-11-11 09:17] VITALS: BMI 38.8
[2025-06-03 11:39] LABS: Hematocrit 42.7 % (40-54); Hemoglobin 14.6 g/dL (13.0-16.5); Immature Granulocytes Count 0.010 X10^3/uL (0.0-0.0); Mean Corp Hgb Conc 34.2 g/dL (32-36); Mean Corpuscular Volume 87.9 fL (80-94); Mean Platelet Vol. 10.1 fl (6.2-12.0); NRBC Flagged by Analyzer 0 % (0-5); Platelet Count 157 K/mm3 (150-450); RBC Distribution Width CV 13.7 % (11.6-14.6); RBC Distribution Width SD 43.9 fl (35.1-43.9); Red Blood Count 4.86 M/mm3 (4.6-6.2); White Blood Count 7.1 K/mm3 (4.4-11.0)
[2025-06-03 12:27] LABS: AST(SGOT) 30 U/L (<=37); Alanine Aminotransfer ALT/SGPT 50 U/L (<=46); Albumin, Serum 3.8 g/dL (3.4-4.8); Alkaline Phosphatase 141 U/L (40-129); Anion Gap 14 (5-15); BUN 11 mg/dL (4-19); BUN/Creat Ratio 15.0 RATIO (10-20); Calcium,Total 9.2 mg/dL (7.6-11.0); Carbon Dioxide 23.4 mmol/L (21.0-32.0); Chloride 101 mmol/L (98-108); Cholesterol 170 mg/dL (<=200); Free T3 2.3 pg/mL (2.18-3.98); Globulin 3.2 g/dL (2.2-4.2); Glucose 119 mg/dL (70-99); Low Density Lipoprotein Calc. 83 mg/dL; Magnesium 1.8 mg/dL (1.5-2.2); Potassium 3.4 mmol/L (3.3-5.1); Triglycerides 183 mg/dL; Very Low Density Lipoprotein 37 mg/dL (5-40); Vitamin B12 978 pg/mL (180-914); Vitamin D,25 Hydroxy 34.8 ng/mL (30-100); cholesterol:hdl ratio screen 3.39
== END | disposition home or self-care (01) ==
LOC: LAB 11:04
PROVIDERS: PCP Internal Medicine; Visit Provider Internal Medicine
DX: E03.9 Hypothyroidism, unspecified (principal); I11.0 Hypertensive heart disease with heart failure; I50.30 Unspecified diastolic (congestive) heart failure; E66.01 Morbid (severe) obesity due to excess calories; I25.10 Atherosclerotic heart disease of native coronary artery without angina pectoris; E65 Localized adiposity; E78.5 Hyperlipidemia, unspecified; R73.9 Hyperglycemia, unspecified; E55.9 Vitamin D deficiency, unspecified
CPT/HCPCS: 36415; 80053; 80061; 82306; 82607; 83036; 83735; 84439; 84443; 84481; 85025

== ENCOUNTER → 2025-07-27 | Outpatient (CLI) | payer MEDICARE, SELFPAY ==
[2024-11-11 09:17] VITALS: BMI 38.8
--- NOTE | 2025-07-27 09:41 | CDU_ITS ---
Reason For Study Reason For Study: BRUIT Rt. Velocities/BP Lt. Velocities/BP Subclavian artery 53.8/13.1 cm/sec. Subclavian artery 56.6/8.6 cm/sec. Prox CCA 72.9/11.3 cm/sec. Prox CCA 116.2/21.6 cm/sec. Mid CCA 82.0/17.1 cm/sec. Mid CCA 72.0/14.2 cm/sec. Dist CCA 67.7/10.6 cm/sec. Dist CCA 83.0/19.2 cm/sec. Prox ICA 83.0/16.7 cm/sec. Prox ICA 83.0/16.7 cm/sec. Mid ICA 76.9/19.2 cm/sec. Mid ICA 65.8/15.5 cm/sec. Dist ICA 106.3/22.8 cm/sec. Dist ICA 58.4/14.2 cm/sec. Rt. ICA/CCA = 106.3/82.0=1.3. Lt. ICA/CCA = 83.0/72.0=1.2. Prox ECA 83.0/5.6 cm/sec. Prox ECA 69.5/6.9 cm/sec. Rt. Vert. 65.8/13.0 cm/sec. Lt. Vert. 28.2/6.5 cm/sec. Left Extracranial There is homogeneous, smooth atherosclerotic plaque noted in the left common carotid artery. There is heterogeneous, smooth atherosclerotic plaque noted in the left internal carotid artery. There is intimal thickening but no significant atherosclerotic plaque noted in the left external carotid artery. Antegrade flow is noted in the left vertebral artery. Procedure Carotid Duplex [id number]. This is a Carotid Duplex examination using B-mode, color flow and specral Doppler. The study was technically difficult. Due to SOB/dyspnea. Exam performed with PT in SEMI- RECLINING POSITION. Exam performed in department. VL/Carotid Duplex Ultrasound Interpretation Summary Mild (<50%) stenosis right extracranial internal carotid. Mild (<50%) stenosis left extracranial internal carotid. Patent and antegrade vertebrals bilaterally. Normal velocities with no stenosis identified in the bilateral subclavian arter ies. Ordering Physician: Aviva Mayo Referring Physician: Melina Agosto Performed By: Britni Liriano, DEANNE, RVT
== END | disposition home or self-care (01) ==
LOC: CVS 09:40
PROVIDERS: PCP Internal Medicine; Referring Provider Physician Assistant Medical; Visit Provider Physician Assistant Medical
DX: R09.89 Other specified symptoms and signs involving the circulatory and respiratory systems (principal)
CPT/HCPCS: 93880

== ENCOUNTER → 2025-08-09 | Outpatient (CLI) | payer MEDICARE, SELFPAY ==
[2024-11-11 09:17] VITALS: BMI 38.8
[2025-08-09 11:37] LABS: Free T3 2.8 pg/mL (2.18-3.98)
== END | disposition home or self-care (01) ==
PROVIDERS: PCP Internal Medicine; Referring Provider Internal Medicine; Visit Provider Internal Medicine
DX: E03.9 Hypothyroidism, unspecified (principal)
CPT/HCPCS: 36415; 84439; 84443; 84481